=== PATIENT | male | born 1960 | race Caucasian/White ===

== ENCOUNTER 2017-10-17 20:56 | Inpatient (IN) | payer OTHER ==
[~2017-10-17] VITALS: Ht 175.3 cm; Wt 80.8 kg
--- NOTE | 2017-10-17 20:53 | Emergency Room Report ---
History of Present Illness General Source: Patient, EMS Present Illness HPI Patient is a 56-year-old male brought in by EMS after the persistent drainage from G-tube stoma. Patient had recently had G-tube removal. The patient is noted to be ventilator dependent. Patient had been having continued drainage from his the G-tube site. Allergies: Coded Allergies: SULFAMETHOXAZOLE (Verified Allergy, Unknown, 10/18/17) TRIMETHOPRIM (Verified Allergy, Unknown, 10/18/17) Patient History Past Medical History: see triage record Reviewed Nursing Documentation: PMH: Agreed; PSxH: Agreed Review of Systems All Other Systems: negative except mentioned in HPI Physical Exam Sp02 EP Interpretation: reviewed, normal General Appearance: normal inspection, well appearing, no apparent distress, alert, Chronically Ill Head: atraumatic ENT: normal ENT inspection, hearing grossly normal, normal voice Neck: normal inspection, supple, no bony tend, limited range of motion, tracheotomy Respiratory: normal inspection, lungs clear, normal breath sounds, no respiratory distress, no retraction, no wheezing Cardiovascular #1: regular rate, rhythm, no edema Gastrointestinal: normal inspection, normal bowel sounds, non tender, soft, no guarding, no hernia Genitourinary: no CVA tenderness Musculoskeletal: normal inspection, back normal, normal range of motion Neurologic: normal inspection, alert, oriented x3, responsive, overseamer III-XII nml as tested, speech normal Psychiatric: normal inspection, judgement/insight normal, mood/affect normal Skin: normal inspection, normal color, no rash Medical Decision Making Diagnostic Impression: Primary Impression: Gastrostomy site leak Additional Impressions: Quadriplegia Tracheostomy dependence ER Course The patient presented for persistently leaking G-tube. The differential diagnosis included was not limited to cellulitis, abscess, bowel obstruction among others.Because of complexity of patient's case laboratory testing and imaging studies were ordered.The laboratory testing was unremarkable. The patient was discussed with Dr. herrera for Dr. Mireille Groves. Dr. Gomez was contacted for surgical consult. Labs Test 10/17/17 21:30 White Blood Count 5.7 K/UL (4.8-10.8) Red Blood Count 5.76 M/UL (4.70-6.10) Hemoglobin 18.7 G/DL (14.2-18.0) Hematocrit 56.5 % (42.0-52.0) Mean Corpuscular Volume 98 FL (80-99) Mean Corpuscular Hemoglobin 32.4 PG (27.0-31.0) Mean Corpuscular Hemoglobin Concent 33.0 G/DL (32.0-36.0) Red Cell Distribution Width 12.9 % (11.6-14.8) Platelet Count 111 K/UL (150-450) Mean Platelet Volume 7.2 FL (6.5-10.1) Neutrophils (%) (Auto) 54.9 % (45.0-75.0) Lymphocytes (%) (Auto) 31.3 % (20.0-45.0) Monocytes (%) (Auto) 9.3 % (1.0-10.0) Eosinophils (%) (Auto) 3.3 % (0.0-3.0) Basophils (%) (Auto) 1.3 % (0.0-2.0) Prothrombin Time 11.5 SEC (9.30-11.50) Prothromb Time International Ratio 1.1 (0.9-1.1) Activated Partial Thromboplast Time 29 SEC (23-33) Sodium Level 144 MMOL/L (136-145) Potassium Level 3.8 MMOL/L (3.5-5.1) Chloride Level 104 MMOL/L (98-107) Carbon Dioxide Level 31 MMOL/L (21-32) Anion Gap 9 mmol/L (5-15) Blood Urea Nitrogen 27 mg/dL (7-18) Creatinine 0.7 MG/DL (0.55-1.30) Estimat Glomerular Filtration Rate > 60 mL/min (>60) Glucose Level 84 MG/DL (74-106) Calcium Level 9.7 MG/DL (8.5-10.1) Total Bilirubin 1.6 MG/DL (0.2-1.0) Direct Bilirubin 0.6 MG/DL (0.0-0.3) Aspartate Amino Transf (AST/SGOT) 59 U/L (15-37) Alanine Aminotransferase (ALT/SGPT) 67 U/L (12-78) Alkaline Phosphatase 662 U/L (46-116) Troponin I 0.000 ng/mL (0.000-0.056) Total Protein 9.1 G/DL (6.4-8.2) Albumin 3.8 G/DL (3.4-5.0) Globulin 5.3 g/dL Albumin/Globulin Ratio 0.7 (1.0-2.7) Lipase 119 U/L (73-393) Status: improved Disposition: HOME, SELF-CARE Condition: Stable Jd Montanez MD Oct 17, 2017 20:53
[2017-10-17 20:56] VITALS: BP 114/70
[2017-10-17] MEDS ORDERED: COLACE100 MG ORAL (21:09)
[2017-10-17] MEDS ORDERED: GABAPENTIN300 MG/61 ORAL (21:09)
[2017-10-17] MEDS ORDERED: LIPITOR80 MG ORAL (21:09)
[2017-10-17] MEDS ORDERED: LEVETIRACE500 MG/100 ORAL (21:09)
[2017-10-17] MEDS ORDERED: FAMOTIDINE20 MG ORAL (21:09)
[2017-10-17] MEDS ORDERED: ASPIRIN300 MG PO (21:09)
[2017-10-17] MEDS ORDERED: NORCO 5-325 TA1 EACH ORAL (21:15)
[2017-10-17] MEDS ORDERED: PRO-STAT LIQUID30 ML ORAL (21:15)
[2017-10-17] MEDS ORDERED: METOPROLOL TART50 MG ORAL (21:15)
[2017-10-17] MEDS ORDERED: VITAMIN C500 M1 ORAL (21:15)
[2017-10-17] MEDS ORDERED: SYNTHROID200 MC1 PO (21:15)
[2017-10-17] MEDS ORDERED: ACETAMINOPHEN120 MG PO (21:15)
[2017-10-17] MEDS ORDERED: MAGNESIUM400 M2 PO (21:15)
[2017-10-17 22:06] LABS: BASOPHILS % (AUTO) 1.3 % (0.0-2.0); EOSINOPHILS % (AUTO) 3.3 % (0.0-3.0); HEMATOCRIT 56.5 % (42.0-52.0); LYMPHOCYTES % (AUTO) 31.3 % (20.0-45.0); MEAN CORPUSCULAR VOLUME 98 FL (80-99); MONOCYTES % (AUTO) 9.3 % (1.0-10.0); NEUTROPHILS % (AUTO) 54.9 % (45.0-75.0); PLATELET COUNT 111 K/UL (150-450); RED BLOOD COUNT 5.76 M/UL (4.70-6.10); RED CELL DISTRIBUTION WIDTH 12.9 % (11.6-14.8); WHITE BLOOD COUNT 5.7 K/UL (4.8-10.8)
[2017-10-17 22:07] LABS: ANION GAP 9 mmol/L (5-15); BLOOD UREA NITROGEN 27 mg/dL (7-18); CALCIUM 9.7 MG/DL (8.5-10.1); CARBON DIOXIDE 31 MMOL/L (21-32); CHLORIDE 104 MMOL/L (98-107); CREATININE 0.7 MG/DL (0.55-1.30); POTASSIUM 3.8 MMOL/L (3.5-5.1); SODIUM 144 MMOL/L (136-145)
[2017-10-17 22:08] LABS: HEMOGLOBIN 18.7 G/DL (14.2-18.0)
[2017-10-17 22:14] LABS: INR 1.1 (0.9-1.1)
[2017-10-17 22:17] LABS: ALANINE AMINOTRANSFERASE 67 U/L (12-78); ALBUMIN 3.8 G/DL (3.4-5.0); ALBUMIN/GLOBULIN RATIO 0.7 (1.0-2.7); ALKALINE PHOSPHATASE 662 U/L (46-116); ASPARTATE AMINO TRANSFERASE 59 U/L (15-37); BILIRUBIN,TOTAL 1.6 MG/DL (0.2-1.0)
[2017-10-17 22:20] LABS: BILIRUBIN,DIRECT 0.6 MG/DL (0.0-0.3)
--- NOTE | 2017-10-17 22:21 | Diagnostic Imaging Report ---
EXAM: XR Chest, 1 View CLINICAL HISTORY: PREOP TECHNIQUE: Frontal view of the chest. COMPARISON: No relevant prior studies available. FINDINGS: Lungs: Probable mild atelectasis at the left lung base. Pleural space: No plain film evidence for pneumothorax. Heart: Mild prominence of the cardiomediastinal silhouette which may be related to the portable technique and patient rotation. Mediastinum: See above. Bones/joints: Unremarkable. Tubes, lines and devices: A tracheostomy tube is noted. Upper abdomen: Mild elevation of the left hemidiaphragm. IMPRESSION: Probable mild atelectasis at the left lung base.
[2017-10-17 22:45] VITALS: BP 114/72
[2017-10-17] MEDS ORDERED: Zolpidem 5mg tab ORAL PRN (23:30)
[2017-10-17 23:36] VITALS: BP 120/82
[2017-10-18] MEDS ORDERED: BACLOFEN10 MG ORAL (00:19)
[2017-10-18] MEDS ORDERED: MILK OF MA400 MG/51 ORAL (00:19)
[2017-10-18] MEDS ORDERED: ALBUTEROL2.5 MG/3 M INH (00:19)
[2017-10-18] MEDS ORDERED: VITAMIN C500 M1 ORAL (00:19)
[2017-10-18] MEDS ORDERED: MULTIVITAM9 MG/15 M2 PO (00:19)
[2017-10-18] MEDS ORDERED: VITAMIN D1000 UNI1 ORAL (00:19)
[2017-10-18] MEDS ORDERED: ARTIFICIAL TEAR15 ML BOTH EYES (00:19)
[2017-10-18] MEDS: D5 1/2NS 1,000 ML IV SCH ×2 (02:23→20:07)
[2017-10-18 04:00] VITALS: BP 113/60
[2017-10-18] MEDS ORDERED: Norco 5mg/325mg tab ORAL PRN (05:15)
[2017-10-18 08:00] VITALS: BP 101/63
[2017-10-18] MEDS: Heparin 5000 units/ml inj SUBQ SCH ×2 (08:53→20:10)
--- NOTE | 2017-10-18 11:19 | Consultation ---
History of Present Illness General Date patient seen: Oct 18, 2017 Time patient seen: 10:00 Chief Complaint: Malfunctioning Gastric Tube Referring physician: dr Groves Reason for Consultation: Chronic respiratory failure, tracheostomy Present Illness HPI 56 years old male with past medical history of respiratory failure, tracheostomy , dysphagia, G-tube, was sent from the alf facility for evaluation due to persistent leakage from the old G-tube site. G-tube was recently removed. Patient with persistent drainage from G tube site. Upon evaluation vital signs were stable Laboratory workup revealed no leukocytosis, stable hemoglobin and hematocrit Elevated T/D bili-1.6/0.6 respectively and AST 59 , stable electrolytes BUN 27 with normal creatinine troponin negative chest x-ray revealed no acute cardiopulmonary pathology patient admitted for further management Allergies: Coded Allergies: SULFAMETHOXAZOLE (Verified Allergy, Unknown, 10/18/17) TRIMETHOPRIM (Verified Allergy, Unknown, 10/18/17) Medication History Scheduled Acetaminophen* (Tylenol*), 650 MG PO Q4H, (Reported) Amino Acids/Protein Hydrolys (Pro-Stat Liquid), 30 ML ORAL TWICE A DAY, ( Reported) Ascorbic Acid* (Vitamin C*), 500 MG ORAL DAILY, (Reported) Ascorbic Acid* (Vitamin C*), 500 MG ORAL DAILY, (Reported) Atorvastatin (Lipitor), 10 MG ORAL BEDTIME, (Reported) Baclofen* (Baclofen*), 15 MG ORAL Q6HR, (Reported) Cholecalciferol (Vitamin D3)* (Vitamin D*), 5,000 UNIT ORAL DAILY, (Reported) Docusate Sodium* (Colace*), 100 MG ORAL TWICE A DAY, (Reported) Famotidine (Famotidine), 20 MG ORAL TWICE A DAY, (Reported) Gabapentin (Gabapentin), 800 MG ORAL Q6HR, (Reported) Levothyroxine Sodium (Levothyroxine Sodium), 125 MCG PO DAILY, (Reported) Magnesium Oxide (Magnesium), 800 MG PO DAILY, (Reported) Metoprolol Tartrate* (Metoprolol Tartrate*), 50 MG ORAL DAILY, (Reported) Multivit &Minerals/Ferrous Fum (Multivitamin Liquid), 5 ML PO DAILY, (Reported) Scheduled PRN Albuterol Sulfate* (Albuterol Sulfate Hhn*), 3 ML INH Q3HR PRN for Shortness of Breath, (Reported) Aspirin (Aspirin), 81 MG PO DAILY PRN for Mild Pain/Temp > 100.5, (Reported) Dextran 70/Hypromellose (Artificial Tears Eye Drops*), 1 DROP BOTH EYES Q6HR PRN for dry eyes, (Reported) Hydrocodone Bit/Acetaminophen 5-325* ([place] 5-325*), 1 TAB ORAL Q6H PRN for For Pain, (Reported) Magnesium Hydroxide* (Milk Of Magnesia*), 30 ML ORAL DAILY PRN for Constipation, (Reported) Patient History History Provided By: Medical Record Healthcare decision maker RALPH ALFARO, SISTER IN LAW Resuscitation status Advanced Directive on File Past Medical/Surgical History Past Medical/Surgical History: (1) Gastrostomy site leak (2) Tracheostomy dependence (3) Quadriplegia (4) Malfunction of gastrostomy tube Review of Systems ROS Narrative patient unable to provide info Physical Exam General Appearance: no apparent distress, alert - responds with eyes Lines, tubes and drains: peripheral HEENT: normocephalic, atraumatic, anicteric Neck: trach Respiratory/Chest: lungs clear, no respiratory distress, no accessory muscle use Cardiovascular/Chest: normal peripheral pulses, normal rate, no JVD Abdomen: normal bowel sounds, non tender, soft, other - site of old G tbe site with dressing, smal amount of drainage Skin Exam: warm/dry Neurologic: abnormal gait - bedridden , other - awake, responds with eyes and nodding , quadriplegia Musculoskeletal: atrophy - BLE Last 24 Hour Vital Signs Date Time Temp Pulse Resp B/P (MAP) Pulse Ox O2 Delivery O2 Flow Rate FiO2 10/18/17 08:00 98.0 64 20 101/63 (76) 96 98.0 10/18/17 07:08 98.4 10/18/17 06:57 Room Air 21 10/18/17 06:57 96 Room Air 10/18/17 06:09 98.4 10/18/17 04:00 98.4 72 18 113/60 (77) 97 98.4 10/18/17 01:43 Room Air 10/18/17 00:15 97 Room Air 21 10/18/17 00:15 Trach Collar 6.0 28 10/17/17 23:36 97.8 68 14 120/82 97 Room Air 10/17/17 23:36 98.3 68 14 120/82 97 Room Air 98.3 10/17/17 22:45 76 20 114/72 96 Room Air 10/17/17 20:56 97.9 78 114/70 97 Room Air 97.9 10/17/17 20:53 97.9 72 22 112/71 97 Room Air 97.9 Intake and Output 10/17/17 10/18/17 19:00 07:00 Intake Total 200 ml Balance 200 ml Intake IV Total 200 ml # Voids 2 # Bowel Movements 1 Laboratory Tests Test 10/17/17 21:30 10/18/17 10:00 White Blood Count 5.7 K/UL (4.8-10.8) Red Blood Count 5.76 M/UL (4.70-6.10) Hemoglobin 18.7 G/DL (14.2-18.0) *H Hematocrit 56.5 % (42.0-52.0) H Mean Corpuscular Volume 98 FL (80-99) Mean Corpuscular Hemoglobin 32.4 PG (27.0-31.0) H Mean Corpuscular Hemoglobin Concent 33.0 G/DL (32.0-36.0) Red Cell Distribution Width 12.9 % (11.6-14.8) Platelet Count 111 K/UL (150-450) L Mean Platelet Volume 7.2 FL (6.5-10.1) Neutrophils (%) (Auto) 54.9 % (45.0-75.0) Lymphocytes (%) (Auto) 31.3 % (20.0-45.0) Monocytes (%) (Auto) 9.3 % (1.0-10.0) Eosinophils (%) (Auto) 3.3 % (0.0-3.0) H Basophils (%) (Auto) 1.3 % (0.0-2.0) Prothrombin Time 11.5 SEC (9.30-11.50) Prothromb Time International Ratio 1.1 (0.9-1.1) Activated Partial Thromboplast Time 29 SEC (23-33) Sodium Level 144 MMOL/L (136-145) Potassium Level 3.8 MMOL/L (3.5-5.1) Chloride Level 104 MMOL/L (98-107) Carbon Dioxide Level 31 MMOL/L (21-32) Anion Gap 9 mmol/L (5-15) Blood Urea Nitrogen 27 mg/dL (7-18) H Creatinine 0.7 MG/DL (0.55-1.30) Estimat Glomerular Filtration Rate > 60 mL/min (>60) Glucose Level 84 MG/DL (74-106) Calcium Level 9.7 MG/DL (8.5-10.1) Total Bilirubin 1.6 MG/DL (0.2-1.0) H Direct Bilirubin 0.6 MG/DL (0.0-0.3) H Aspartate Amino Transf (AST/SGOT) 59 U/L (15-37) H Alanine Aminotransferase (ALT/SGPT) 67 U/L (12-78) Alkaline Phosphatase 662 U/L (46-116) H Troponin I 0.000 ng/mL (0.000-0.056) Total Protein 9.1 G/DL (6.4-8.2) H Albumin 3.8 G/DL (3.4-5.0) Globulin 5.3 g/dL Albumin/Globulin Ratio 0.7 (1.0-2.7) L Lipase 119 U/L (73-393) Jak2 V617F Mutation Detection Pending JAK2 V617F Mutation Background Pending JAK2 V617F Reviewed By Pending Hepatitis A IgM Antibody Pending Hepatitis B Surface Antigen Pending Hepatitis B Core IgM Antibody Pending Hepatitis C Antibody Pending HIV (1&2) Antibody Rapid Negative (NEGATIVE) Height (Feet): 5 Height (Inches): 9.00 Weight (Pounds): 176 Medications Current Medications Medications (Trade) Dose Ordered Sig/Vicenta Route PRN Reason Start Time Stop Time Status Last Admin Dose Admin Acetaminophen (Tylenol) 650 mg Q4H PRN ORAL fever 10/17/17 23:30 11/16/17 23:29 Acetaminophen/ Hydrocodone Bitart ([place] 5/325) 1 tab Q6H PRN ORAL For Pain 10/18/17 05:15 10/25/17 05:14 10/18/17 06:09 Artificial Tears (Akwa-Tears) 1 drop Q6H PRN BOTH EYES dry eyes 10/18/17 05:15 11/17/17 05:14 Dextrose/Sodium Chloride 1,000 ml @ 50 mls/hr Q20H IV 10/17/17 23:30 11/16/17 23:29 10/18/17 02:23 Heparin Sodium (Porcine) (Heparin 5000 units/ml) 5,000 units EVERY 12 HOURS SUBQ 10/18/17 09:00 11/17/17 08:59 10/18/17 08:53 Ondansetron HCl (Zofran) 4 mg Q6H PRN IVP Nausea & Vomiting 10/17/17 23:30 11/16/17 23:29 Zolpidem Tartrate (Ambien) 5 mg HSPRN PRN ORAL Insomnia 10/17/17 23:30 10/24/17 23:29 Assessment/Plan Assessment/Plan ASSESSMENT persistent drainage from old G-tube site chronic respiratory failure tracheostomy status dysphagia status post recent G-tube removal quadriplegia transaminitis dehydration PLAN CARE Med Surg floor NPO IV fluids GI and ID eval swallow eval wound care DVT prophylaxis o tracheostomy care O2 titrate to keep pulse ox above 92 % pulmonary toilet hepatitis panel pending , trend LFT and Bili HIV negative monitor renal parameters and electrolytes, correct electrolytes as needed and avoid nephrotoxic supportive care case discussed and evaluated by supervising physician Caitie Rose DOG BEAUTICIAN Oct 18, 2017 11:19
[2017-10-18 12:00] VITALS: BP 96/67
--- NOTE | 2017-10-18 12:15 | Consultation ---
History of Present Illness General Date patient seen: Oct 18, 2017 Chief Complaint: Malfunctioning Gastric Tube Referring physician: dr Groves Reason for Consultation: Chronic respiratory failure, tracheostomy Present Illness HPI 56 y/o M with hx of chronic resp failure s/p trach, dysphagia s/p GT, SNF resident presents to ED on 10/17 with persistent leakage from old GT site which was recently removed. Allergies: Coded Allergies: SULFAMETHOXAZOLE (Verified Allergy, Unknown, 10/18/17) TRIMETHOPRIM (Verified Allergy, Unknown, 10/18/17) Medication History Scheduled Acetaminophen* (Tylenol*), 650 MG PO Q4H, (Reported) Amino Acids/Protein Hydrolys (Pro-Stat Liquid), 30 ML ORAL TWICE A DAY, ( Reported) Ascorbic Acid* (Vitamin C*), 500 MG ORAL DAILY, (Reported) Ascorbic Acid* (Vitamin C*), 500 MG ORAL DAILY, (Reported) Atorvastatin (Lipitor), 10 MG ORAL BEDTIME, (Reported) Baclofen* (Baclofen*), 15 MG ORAL Q6HR, (Reported) Cholecalciferol (Vitamin D3)* (Vitamin D*), 5,000 UNIT ORAL DAILY, (Reported) Docusate Sodium* (Colace*), 100 MG ORAL TWICE A DAY, (Reported) Famotidine (Famotidine), 20 MG ORAL TWICE A DAY, (Reported) Gabapentin (Gabapentin), 800 MG ORAL Q6HR, (Reported) Levothyroxine Sodium (Levothyroxine Sodium), 125 MCG PO DAILY, (Reported) Magnesium Oxide (Magnesium), 800 MG PO DAILY, (Reported) Metoprolol Tartrate* (Metoprolol Tartrate*), 50 MG ORAL DAILY, (Reported) Multivit &Minerals/Ferrous Fum (Multivitamin Liquid), 5 ML PO DAILY, (Reported) Scheduled PRN Albuterol Sulfate* (Albuterol Sulfate Hhn*), 3 ML INH Q3HR PRN for Shortness of Breath, (Reported) Aspirin (Aspirin), 81 MG PO DAILY PRN for Mild Pain/Temp > 100.5, (Reported) Dextran 70/Hypromellose (Artificial Tears Eye Drops*), 1 DROP BOTH EYES Q6HR PRN for dry eyes, (Reported) Hydrocodone Bit/Acetaminophen 5-325* ([place] 5-325*), 1 TAB ORAL Q6H PRN for For Pain, (Reported) Magnesium Hydroxide* (Milk Of Magnesia*), 30 ML ORAL DAILY PRN for Constipation, (Reported) Patient History Healthcare decision maker RALPH ALFARO, SISTER IN LAW Resuscitation status Advanced Directive on File Patient History Narrative Pmhx: as above Shx: reviewed Fhx: non contributory Review of Systems All Other Systems: negative except mentioned in HPI Physical Exam Physical Exam Narrative General Appearance: no apparent distress, alert - responds with eyes Lines, tubes and drains: peripheral HEENT: normocephalic, atraumatic, anicteric Neck: trach Respiratory/Chest: lungs clear, no respiratory distress, no accessory muscle use Cardiovascular/Chest: normal peripheral pulses, normal rate, no JVD Abdomen: normal bowel sounds, non tender, soft, other - site of old G tbe site with dressing, smal amount of purulent drainage and surrounding erythema Skin Exam: warm/dry Neurologic: abnormal gait - bedridden , other - awake, responds with eyes and nodding , quadriplegia Musculoskeletal: atrophy - BLE Last 24 Hour Vital Signs Date Time Temp Pulse Resp B/P (MAP) Pulse Ox O2 Delivery O2 Flow Rate FiO2 10/18/17 08:00 98.0 64 20 101/63 (76) 96 98.0 10/18/17 07:08 98.4 10/18/17 06:57 Room Air 21 10/18/17 06:57 96 Room Air 21 10/18/17 06:09 98.4 10/18/17 04:00 98.4 72 18 113/60 (77) 97 98.4 10/18/17 01:43 Room Air 10/18/17 00:15 97 Room Air 21 10/18/17 00:15 Trach Collar 6.0 10/17/17 23:36 97.8 68 14 120/82 97 Room Air 10/17/17 23:36 98.3 68 14 120/82 97 Room Air 98.3 10/17/17 22:45 76 20 114/72 96 Room Air 10/17/17 20:56 97.9 78 114/70 97 Room Air 97.9 10/17/17 20:53 97.9 72 22 112/71 97 Room Air 97.9 Intake and Output 10/17/17 10/18/17 19:00 07:00 Intake Total 200 ml Balance 200 ml Intake IV Total 200 ml # Voids 2 # Bowel Movements 1 Laboratory Tests Test 10/17/17 21:30 10/18/17 10:00 White Blood Count 5.7 K/UL (4.8-10.8) Red Blood Count 5.76 M/UL (4.70-6.10) Hemoglobin 18.7 G/DL (14.2-18.0) *H Hematocrit 56.5 % (42.0-52.0) H Mean Corpuscular Volume 98 FL (80-99) Mean Corpuscular Hemoglobin 32.4 PG (27.0-31.0) H Mean Corpuscular Hemoglobin Concent 33.0 G/DL (32.0-36.0) Red Cell Distribution Width 12.9 % (11.6-14.8) Platelet Count 111 K/UL (150-450) L Mean Platelet Volume 7.2 FL (6.5-10.1) Neutrophils (%) (Auto) 54.9 % (45.0-75.0) Lymphocytes (%) (Auto) 31.3 % (20.0-45.0) Monocytes (%) (Auto) 9.3 % (1.0-10.0) Eosinophils (%) (Auto) 3.3 % (0.0-3.0) H Basophils (%) (Auto) 1.3 % (0.0-2.0) Prothrombin Time 11.5 SEC (9.30-11.50) Prothromb Time International Ratio 1.1 (0.9-1.1) Activated Partial Thromboplast Time 29 SEC (23-33) Sodium Level 144 MMOL/L (136-145) Potassium Level 3.8 MMOL/L (3.5-5.1) Chloride Level 104 MMOL/L (98-107) Carbon Dioxide Level 31 MMOL/L (21-32) Anion Gap 9 mmol/L (5-15) Blood Urea Nitrogen 27 mg/dL (7-18) H Creatinine 0.7 MG/DL (0.55-1.30) Estimat Glomerular Filtration Rate > 60 mL/min (>60) Glucose Level 84 MG/DL (74-106) Calcium Level 9.7 MG/DL (8.5-10.1) Total Bilirubin 1.6 MG/DL (0.2-1.0) H Direct Bilirubin 0.6 MG/DL (0.0-0.3) H Aspartate Amino Transf (AST/SGOT) 59 U/L (15-37) H Alanine Aminotransferase (ALT/SGPT) 67 U/L (12-78) Alkaline Phosphatase 662 U/L (46-116) H Troponin I 0.000 ng/mL (0.000-0.056) Total Protein 9.1 G/DL (6.4-8.2) H Albumin 3.8 G/DL (3.4-5.0) Globulin 5.3 g/dL Albumin/Globulin Ratio 0.7 (1.0-2.7) L Lipase 119 U/L (73-393) Jak2 V617F Mutation Detection Pending JAK2 V617F Mutation Background Pending JAK2 V617F Reviewed By Pending Hepatitis A IgM Antibody Pending Hepatitis B Surface Antigen Pending Hepatitis B Core IgM Antibody Pending Hepatitis C Antibody Pending HIV (1&2) Antibody Rapid Negative (NEGATIVE) Height (Feet): 5 Height (Inches): 9.00 Weight (Pounds): 176 Medications Current Medications Medications (Trade) Dose Ordered Sig/Vicenta Route PRN Reason Start Time Stop Time Status Last Admin Dose Admin Acetaminophen (Tylenol) 650 mg Q4H PRN ORAL fever 10/17/17 23:30 11/16/17 23:29 Acetaminophen/ Hydrocodone Bitart ([place] 5/325) 1 tab Q6H PRN ORAL For Pain 10/18/17 05:15 10/25/17 05:14 10/18/17 06:09 Artificial Tears (Akwa-Tears) 1 drop Q6H PRN BOTH EYES dry eyes 10/18/17 05:15 11/17/17 05:14 Dextrose/Sodium Chloride 1,000 ml @ 50 mls/hr Q20H IV 10/17/17 23:30 11/16/17 23:29 10/18/17 02:23 Heparin Sodium (Porcine) (Heparin 5000 units/ml) 5,000 units EVERY 12 HOURS SUBQ 10/18/17 09:00 11/17/17 08:59 10/18/17 08:53 Ondansetron HCl (Zofran) 4 mg Q6H PRN IVP Nausea & Vomiting 10/17/17 23:30 11/16/17 23:29 Zolpidem Tartrate (Ambien) 5 mg HSPRN PRN ORAL Insomnia 10/17/17 23:30 10/24/17 23:29 Assessment/Plan Assessment/Plan Abx: None Assessment: Old GT site/stoma cellulitis w/ purulent drainage Afebrile, no leukocytosis chronic resp failure s/p trach dysphagia s/p GT SNF resident Plan: -Start empiric IV Vanco and Zosyn for now pending cultures -wound cx -f/u cx -Monitor CBC/CMP, temperatures -aspiration precautions -wound care per hosp protocol -f/u abd US -Sx f/u Thank you for this consultation. Will continue to follow along with you. Discussed with OPAL. Kimi Ramos M.D. Oct 18, 2017 12:15
[2017-10-18] MEDS: Artificial Tears 1.4% Op Soln BOTH EYES PRN ×2 (13:44→20:08)
--- NOTE | 2017-10-18 14:54 | Consultation ---
History of Present Illness General Date patient seen: Oct 18, 2017 Chief Complaint: Malfunctioning Gastric Tube Referring physician: dr Groves Present Illness HPI 56 years old male with past medical history of respiratory failure, tracheostomy , dysphagia, G-tube, was sent from the [place] [facility] facility for evaluation due to persistent leakage from the old G-tube site. G-tube was recently removed and since patient with persistent drainage from G tube site. Lots of erythema and edema around site. Admitted for evaluation, care, and management. Surgery called to evaluate for possible abscess and need for debridement. patient seen, chart reviewed, patient examined. Allergies: Coded Allergies: SULFAMETHOXAZOLE (Verified Allergy, Unknown, 10/18/17) TRIMETHOPRIM (Verified Allergy, Unknown, 10/18/17) Medication History Scheduled Acetaminophen* (Tylenol*), 650 MG PO Q4H, (Reported) Amino Acids/Protein Hydrolys (Pro-Stat Liquid), 30 ML ORAL TWICE A DAY, ( Reported) Ascorbic Acid* (Vitamin C*), 500 MG ORAL DAILY, (Reported) Ascorbic Acid* (Vitamin C*), 500 MG ORAL DAILY, (Reported) Atorvastatin (Lipitor), 10 MG ORAL BEDTIME, (Reported) Baclofen* (Baclofen*), 15 MG ORAL Q6HR, (Reported) Cholecalciferol (Vitamin D3)* (Vitamin D*), 5,000 UNIT ORAL DAILY, (Reported) Docusate Sodium* (Colace*), 100 MG ORAL TWICE A DAY, (Reported) Famotidine (Famotidine), 20 MG ORAL TWICE A DAY, (Reported) Gabapentin (Gabapentin), 800 MG ORAL Q6HR, (Reported) Levothyroxine Sodium (Levothyroxine Sodium), 125 MCG PO DAILY, (Reported) Magnesium Oxide (Magnesium), 800 MG PO DAILY, (Reported) Metoprolol Tartrate* (Metoprolol Tartrate*), 50 MG ORAL DAILY, (Reported) Multivit &Minerals/Ferrous Fum (Multivitamin Liquid), 5 ML PO DAILY, (Reported) Scheduled PRN Albuterol Sulfate* (Albuterol Sulfate Hhn*), 3 ML INH Q3HR PRN for Shortness of Breath, (Reported) Aspirin (Aspirin), 81 MG PO DAILY PRN for Mild Pain/Temp > 100.5, (Reported) Dextran 70/Hypromellose (Artificial Tears Eye Drops*), 1 DROP BOTH EYES Q6HR PRN for dry eyes, (Reported) Hydrocodone Bit/Acetaminophen 5-325* ([place] 5-325*), 1 TAB ORAL Q6H PRN for For Pain, (Reported) Magnesium Hydroxide* (Milk Of Magnesia*), 30 ML ORAL DAILY PRN for Constipation, (Reported) Patient History Limited by: medical condition History Provided By: Medical Record, PMD Healthcare decision maker RALPH ALFARO, SISTER IN LAW Resuscitation status Advanced Directive on File Past Medical/Surgical History Past Medical/Surgical History: (1) Malfunction of gastrostomy tube (2) Quadriplegia (3) Tracheostomy dependence (4) Gastrostomy site leak Review of Systems All Other Systems: negative except mentioned in HPI Physical Exam General Appearance: no apparent distress HEENT: atraumatic Neck: trach Respiratory/Chest: normal breath sounds, no respiratory distress, no accessory muscle use Cardiovascular/Chest: normal rate, regularly irregular Abdomen: soft, distended, tender, other - large abdominal wound from prior with g tube site open and leaking. ulceration medial and inferior noted. erythema and edema noted. no abscess Extremities: trace edema Skin Exam: warm/dry Neurologic: responsive Last 24 Hour Vital Signs Date Time Temp Pulse Resp B/P (MAP) Pulse Ox O2 Delivery O2 Flow Rate FiO2 10/18/17 13:06 98 Room Air 10/18/17 13:06 Room Air 10/18/17 12:00 97.0 68 20 96/67 (77) 96 97.0 10/18/17 08:00 98.0 64 20 101/63 (76) 96 98.0 10/18/17 07:08 98.4 10/18/17 06:57 Room Air 10/18/17 06:57 96 Room Air 10/18/17 06:09 98.4 10/18/17 04:00 98.4 72 18 113/60 (77) 97 98.4 10/18/17 01:43 Room Air 10/18/17 00:15 97 Room Air 10/18/17 00:15 Trach Collar 6.0 10/17/17 23:36 97.8 68 14 120/82 97 Room Air 10/17/17 23:36 98.3 68 14 120/82 97 Room Air 98.3 10/17/17 22:45 76 20 114/72 96 Room Air 10/17/17 20:56 97.9 78 114/70 97 Room Air 97.9 10/17/17 20:53 97.9 72 22 112/71 97 Room Air 97.9 Intake and Output 10/17/17 10/18/17 19:00 07:00 Intake Total 200 ml Balance 200 ml Intake IV Total 200 ml # Voids 2 # Bowel Movements 1 Laboratory Tests Test 10/17/17 21:30 10/18/17 10:00 White Blood Count 5.7 K/UL (4.8-10.8) Red Blood Count 5.76 M/UL (4.70-6.10) Hemoglobin 18.7 G/DL (14.2-18.0) *H Hematocrit 56.5 % (42.0-52.0) H Mean Corpuscular Volume 98 FL (80-99) Mean Corpuscular Hemoglobin 32.4 PG (27.0-31.0) H Mean Corpuscular Hemoglobin Concent 33.0 G/DL (32.0-36.0) Red Cell Distribution Width 12.9 % (11.6-14.8) Platelet Count 111 K/UL (150-450) L Mean Platelet Volume 7.2 FL (6.5-10.1) Neutrophils (%) (Auto) 54.9 % (45.0-75.0) Lymphocytes (%) (Auto) 31.3 % (20.0-45.0) Monocytes (%) (Auto) 9.3 % (1.0-10.0) Eosinophils (%) (Auto) 3.3 % (0.0-3.0) H Basophils (%) (Auto) 1.3 % (0.0-2.0) Prothrombin Time 11.5 SEC (9.30-11.50) Prothromb Time International Ratio 1.1 (0.9-1.1) Activated Partial Thromboplast Time 29 SEC (23-33) Sodium Level 144 MMOL/L (136-145) Potassium Level 3.8 MMOL/L (3.5-5.1) Chloride Level 104 MMOL/L (98-107) Carbon Dioxide Level 31 MMOL/L (21-32) Anion Gap 9 mmol/L (5-15) Blood Urea Nitrogen 27 mg/dL (7-18) H Creatinine 0.7 MG/DL (0.55-1.30) Estimat Glomerular Filtration Rate > 60 mL/min (>60) Glucose Level 84 MG/DL (74-106) Calcium Level 9.7 MG/DL (8.5-10.1) Total Bilirubin 1.6 MG/DL (0.2-1.0) H Direct Bilirubin 0.6 MG/DL (0.0-0.3) H Aspartate Amino Transf (AST/SGOT) 59 U/L (15-37) H Alanine Aminotransferase (ALT/SGPT) 67 U/L (12-78) Alkaline Phosphatase 662 U/L (46-116) H Troponin I 0.000 ng/mL (0.000-0.056) Total Protein 9.1 G/DL (6.4-8.2) H Albumin 3.8 G/DL (3.4-5.0) Globulin 5.3 g/dL Albumin/Globulin Ratio 0.7 (1.0-2.7) L Lipase 119 U/L (73-393) Jak2 V617F Mutation Detection Pending JAK2 V617F Mutation Background Pending JAK2 V617F Reviewed By Pending Hepatitis A IgM Antibody Pending Hepatitis B Surface Antigen Pending Hepatitis B Core IgM Antibody Pending Hepatitis C Antibody Pending HIV (1&2) Antibody Rapid Negative (NEGATIVE) Height (Feet): 5 Height (Inches): 9.00 Weight (Pounds): 176 Medications Current Medications Medications (Trade) Dose Ordered Sig/Vicenta Route PRN Reason Start Time Stop Time Status Last Admin Dose Admin Acetaminophen (Tylenol) 650 mg Q4H PRN ORAL fever 10/17/17 23:30 11/16/17 23:29 Acetaminophen/ Hydrocodone Bitart ([place] 5/325) 1 tab Q6H PRN ORAL For Pain 10/18/17 05:15 10/25/17 05:14 10/18/17 06:09 Artificial Tears (Akwa-Tears) 1 drop Q6H PRN BOTH EYES dry eyes 10/18/17 05:15 11/17/17 05:14 10/18/17 13:44 Dextrose/Sodium Chloride 1,000 ml @ 50 mls/hr Q20H IV 10/17/17 23:30 11/16/17 23:29 10/18/17 02:23 Heparin Sodium (Porcine) (Heparin 5000 units/ml) 5,000 units EVERY 12 HOURS SUBQ 10/18/17 09:00 11/17/17 08:59 10/18/17 08:53 Ondansetron HCl (Zofran) 4 mg Q6H PRN IVP Nausea & Vomiting 10/17/17 23:30 11/16/17 23:29 Zolpidem Tartrate (Ambien) 5 mg HSPRN PRN ORAL Insomnia 10/17/17 23:30 10/24/17 23:29 Assessment/Plan Problem List: (1) Malfunction of gastrostomy tube Assessment & Plan: large abdominal wound from prior with g tube site open and leaking. ulceration medial and inferior noted. erythema and edema noted. no abscess cellulitis of prior g tube site large and persistent leakage of gastric contents causing ulceration elevated liver function tests no acute surgical intervention necessary skin protectant keep site clean dressings ultrasound will discuss with GI about closure thank you for this consultation. ICD Codes: K94.23 - Gastrostomy malfunction SNOMED: 343184090 (2) Gastrostomy site leak ICD Codes: K94.23 - Gastrostomy malfunction SNOMED: 380079729 Status: unchanged Robert Gomez Oct 18, 2017 14:54
--- NOTE | 2017-10-18 15:43 | History & Physical ---
History and Physical History & Physicial Job ID [id number] Reid Grajeda MD Oct 18, 2017 15:43
[2017-10-18 16:00] VITALS: BP 103/63
[2017-10-18] MEDS ORDERED: D5 1/2NS 1000ml IV ONE (17:55)
[2017-10-18] MEDS: Piperacillin/Tazobactam 3.375 GM in D5W 110 ML IVPB SCH (18:03)
[2017-10-18 20:00] VITALS: BP 142/78
[2017-10-18] MEDS ORDERED: Vancomycin 1250mg/D5W 250ml IVPB SCH (22:00)
[2017-10-18 23:50] VITALS: BP 180/103
[2017-10-19] VITALS (24 sets, daily range): BP systolic 101–176; BP diastolic 60–105
[2017-10-19] MEDS ORDERED: LORazepam Inj 2mg/ml 1ml ONE (00:41)
[2017-10-19 00:44] LABS: BASOPHILS % (AUTO) 1.4 % (0.0-2.0); HEMATOCRIT 55.8 % (42.0-52.0); LYMPHOCYTES % (AUTO) 22.4 % (20.0-45.0); MEAN CORPUSCULAR VOLUME 96 FL (80-99); MONOCYTES % (AUTO) 5.2 % (1.0-10.0); NEUTROPHILS % (AUTO) 70.1 % (45.0-75.0); PLATELET COUNT 119 K/UL (150-450); RED BLOOD COUNT 5.79 M/UL (4.70-6.10); RED CELL DISTRIBUTION WIDTH 12.8 % (11.6-14.8); WHITE BLOOD COUNT 7.2 K/UL (4.8-10.8)
[2017-10-19] MEDS ORDERED: levETIRAcetam 500mg/NS100ml 100 ML IVPB ONE ×2 (00:45→09:00)
[2017-10-19] MEDS ORDERED: LORazepam Inj 2mg/ml 1ml IV ONE (00:45)
--- NOTE | 2017-10-19 00:45 | History and Physical Report ---
DATE OF ADMISSION: 10/17/[address] Groves. REASON FOR ADMISSION: G-tube malfunction. HISTORY OF PRESENT ILLNESS: The patient is a pleasant 56-year-old male with history of respiratory failure, tracheostomy, history of G-tube, residential facility resident, at this time presents due to leakage from the G-tube. G-tube has been recently removed. Upon presentation, has had persistent G-tube leak. Internal Medicine consult order has consulted gastrointestinal service for further evaluation and treatment as well as pulmonary team. PAST MEDICAL HISTORY: As noted above. G-tube leak, tracheostomy, malfunctioning. PAST SURGICAL HISTORY: None noted besides tracheostomy and G-tube. ALLERGIES: Bactrim. REVIEW OF SYSTEMS: Difficult to obtain given mental status. FAMILY HISTORY: Noncontributory. SOCIAL HISTORY: No alcohol, tobacco, or illicit drug use. PHYSICAL EXAMINATION: VITAL SIGNS: Reviewed. GENERAL: No distress. PULMONARY: Decreased breath sounds. CARDIOVASCULAR: Regular rate. No S3 or S4. ABDOMEN: Soft. Positive for G-tube. EXTREMITIES: No cyanosis, swelling, or edema noted. LABORATORY DATA: WBC , hemoglobin , hematocrit 57, and platelet count 111,000. ASSESSMENT AND RECOMMENDATIONS: 1. Leukocytosis, secondary to underlying dehydration, to closely monitor for improvement. The patient is here . 2. Hyperproteinemia. Obtain serum protein electrophoresis. 3. G-tube malfunction, referred to gastrointestinal team. G-tube continues to . 4. Chronic respiratory failure, status post trach. 5. Erythema around the G-tube site with potential cellulitis, has been seen by ID Service. Cultures pending. Does not require antibiotics. 6. . Reid Grajeda M.D. DR: TIA JOB#: [id number] CC: IVANNA
[2017-10-19 00:49] LABS: HEMOGLOBIN 18.5 G/DL (14.2-18.0)
[2017-10-19] MEDS ORDERED: levETIRAcetam 500mg/NS100ml 100 ML IVPB SCH (01:45)
[2017-10-19] MEDS ORDERED: Midazolam 2mg/2ml Inj IVP SCH (02:00)
[2017-10-19] MEDS ORDERED: Midazolam 2mg/2ml Inj ONE (02:02)
[2017-10-19 03:56] LABS: ANION GAP 11 mmol/L (5-15); BLOOD UREA NITROGEN 28 mg/dL (7-18); CALCIUM 9.3 MG/DL (8.5-10.1); CARBON DIOXIDE 27 MMOL/L (21-32); CHLORIDE 104 MMOL/L (98-107); CREATININE 0.9 MG/DL (0.55-1.30); POTASSIUM 3.6 MMOL/L (3.5-5.1); SODIUM 142 MMOL/L (136-145)
[2017-10-19 04:07] LABS: ALANINE AMINOTRANSFERASE 55 U/L (12-78); ALBUMIN/GLOBULIN RATIO 0.8 (1.0-2.7); ALKALINE PHOSPHATASE 610 U/L (46-116); ASPARTATE AMINO TRANSFERASE 48 U/L (15-37); BILIRUBIN,TOTAL 2.7 MG/DL (0.2-1.0); PHOSPHORUS 4.1 MG/DL (2.5-4.9)
[2017-10-19] MEDS ORDERED: LORazepam Inj 2mg/ml 1ml IV PRN ×3 (04:45→14:30)
--- NOTE | 2017-10-19 05:17 | Emergency Room Report ---
Physical Exam Vital Signs Date Time Temp Pulse Resp B/P (MAP) Pulse Ox O2 Delivery O2 Flow Rate FiO2 10/17/17 20:53 97.9 72 22 112/71 97 Room Air 97.9 10/18/17 00:15 6.0 28 Medical Decision Making Diagnostic Impression: Primary Impression: Gastrostomy site leak Additional Impressions: Tracheostomy dependence Quadriplegia ER Course requested by ICU staff to see patient due to poorly functioning noncuffed trach tube on arrival informed patient had had multiple sz; pt. had significant amount of oral trauma and mouth bleeding trach tube intact but air escaping changed 16 Shiley without complication improved aeration i asked RNs to continue to call PMD as this is an admitted ICU patient Last Vital Signs Date Time Temp Pulse Resp B/P (MAP) Pulse Ox O2 Delivery O2 Flow Rate FiO2 10/19/17 05:03 97.7 102 15 113/72 (86) 98 97.7 10/19/17 04:00 Mechanical Ventilator 10/19/17 04:00 40 10/19/17 01:00 6.0 Disposition: ADMITTED INPATIENT Condition: Stable Referrals: Mireille Groves MD (PCP) Declan Marquez M.D. Oct 19, 2017 05:17
[2017-10-19] MEDS: Piperacillin/Tazobactam 3.375 GM in D5W 110 ML IVPB SCH ×3 (06:08→22:30)
[2017-10-19 07:24] LABS: HEMATOCRIT 53.5 % (42.0-52.0); HEMOGLOBIN 17.6 G/DL (14.2-18.0); MEAN CORPUSCULAR VOLUME 95 FL (80-99); PLATELET COUNT 126 K/UL (150-450); RED BLOOD COUNT 5.61 M/UL (4.70-6.10); RED CELL DISTRIBUTION WIDTH 12.4 % (11.6-14.8); WHITE BLOOD COUNT 10.8 K/UL (4.8-10.8)
[2017-10-19 07:52] LABS: ALANINE AMINOTRANSFERASE 47 U/L (12-78); ALBUMIN 3.4 G/DL (3.4-5.0); ALBUMIN/GLOBULIN RATIO 0.7 (1.0-2.7); ALKALINE PHOSPHATASE 537 U/L (46-116); ANION GAP 11 mmol/L (5-15); ASPARTATE AMINO TRANSFERASE 46 U/L (15-37); BLOOD UREA NITROGEN 26 mg/dL (7-18); CALCIUM 8.9 MG/DL (8.5-10.1); CARBON DIOXIDE 26 MMOL/L (21-32); CHLORIDE 105 MMOL/L (98-107); CREATININE 0.7 MG/DL (0.55-1.30); POTASSIUM 3.2 MMOL/L (3.5-5.1); SODIUM 142 MMOL/L (136-145)
[2017-10-19 07:53] LABS: BILIRUBIN,DIRECT 0.7 MG/DL (0.0-0.3)
[2017-10-19] MEDS: D5 1/2NS 1,000 ML IV SCH (08:17)
[2017-10-19] MEDS: Heparin 5000 units/ml inj SUBQ SCH ×2 (09:00→21:00)
[2017-10-19] MEDS: levETIRAcetam 500mg/NS100ml 100 ML IVPB SCH ×2 (10:01→21:05)
[2017-10-19] MEDS: Vancomycin 1250mg/D5W 250ml 250 ML IVPB SCH ×2 (10:02→22:25)
[2017-10-19] MEDS ORDERED: Norco 5mg/325mg tab ORAL PRN (11:15)
[2017-10-19] MEDS: Artificial Tears 1.4% Op Soln BOTH EYES PRN (12:01)
[2017-10-19] MEDS ORDERED: Potassium Chloride 20 MEQ in NS 275 ML IVPB ONE (12:15)
--- NOTE | 2017-10-19 13:08 | General Surgery Progress Note ---
General Surgery-Progress Note Subjective Additional Comments seizures overnight. transferred to ICU. site continues to drain. Objective Last 24 Hour Vital Signs Date Time Temp Pulse Resp B/P (MAP) Pulse Ox O2 Delivery O2 Flow Rate FiO2 10/19/17 12:37 113 18 28 10/19/17 12:00 100.1 108 15 128/86 (100) 97 100.1 10/19/17 12:00 28 10/19/17 12:00 119 10/19/17 12:00 Mechanical Ventilator 10/19/17 11:27 113 15 28 10/19/17 11:00 117 16 112/77 (89) 98 10/19/17 10:00 112 15 111/81 (91) 97 10/19/17 09:25 119 15 28 10/19/17 09:00 112 15 114/64 (81) 96 10/19/17 08:00 98.7 111 17 117/89 (98) 98 98.7 10/19/17 08:00 Mechanical Ventilator 10/19/17 08:00 40 10/19/17 08:00 111 10/19/17 07:01 106 15 40 10/19/17 07:00 107 15 117/89 (98) 98 10/19/17 06:00 105 15 114/73 (87) 99 10/19/17 05:27 103 15 40 10/19/17 05:03 97.7 102 15 113/72 (86) 98 97.7 10/19/17 04:00 102 15 104/71 (82) 97 10/19/17 04:00 Mechanical Ventilator 10/19/17 04:00 40 10/19/17 03:00 110 16 109/77 (88) 98 10/19/17 02:43 116 15 40 10/19/17 02:41 116 15 Mechanical Ventilator 40 10/19/17 02:15 40 10/19/17 02:00 120 16 110/73 (85) 95 10/19/17 01:30 130 10/19/17 01:15 99.7 130 15 120/66 (84) 95 99.7 10/19/17 01:15 98.7 140 18 120/66 (84) 96 98.7 10/19/17 01:15 98.7 98.7 10/19/17 01:00 Trach Collar 6.0 28 10/19/17 01:00 96 Trach Collar 6.0 28 10/19/17 00:20 97.3 140 16 176/105 (128) 96 97.3 10/18/17 23:50 98.7 136 16 180/103 (128) 98 98.7 10/18/17 21:00 Room Air 10/18/17 20:43 Room Air 10/18/17 20:42 96 Room Air 21 10/18/17 20:00 98.7 98 20 142/78 (99) 98 98.7 10/18/17 16:00 98.2 73 18 103/63 (76) 99 98.2 10/18/17 13:06 98 Room Air 21 10/18/17 13:06 Room Air I&O Intake and Output 10/18/17 10/19/17 19:00 07:00 Intake Total 550 ml 760.0 ml Output Total 30 ml Balance 550 ml 730.0 ml Intake Oral 0 ml IV Total 550 ml 760.0 ml Output Urine Total 30 ml # Bowel Movements 2 Dressing: saturated Wound: other Drains: none Cardiovascular: RSR Respiratory: clear Abdomen: soft, distended, tenderness, present bowel sounds Extremities: other Laboratory Tests Test 10/19/17 00:30 10/19/17 00:50 10/19/17 06:45 10/19/17 08:35 White Blood Count 7.2 K/UL (4.8-10.8) 10.8 K/UL (4.8-10.8) Red Blood Count 5.79 M/UL (4.70-6.10) 5.61 M/UL (4.70-6.10) Hemoglobin 18.5 G/DL (14.2-18.0) *H 17.6 G/DL (14.2-18.0) Hematocrit 55.8 % (42.0-52.0) H 53.5 % (42.0-52.0) H Mean Corpuscular Volume 96 FL (80-99) 95 FL (80-99) Mean Corpuscular Hemoglobin 31.9 PG (27.0-31.0) H 31.4 PG (27.0-31.0) H Mean Corpuscular Hemoglobin Concent 33.1 G/DL (32.0-36.0) 33.0 G/DL (32.0-36.0) Red Cell Distribution Width 12.8 % (11.6-14.8) 12.4 % (11.6-14.8) Platelet Count 119 K/UL (150-450) L 126 K/UL (150-450) L Mean Platelet Volume 7.1 FL (6.5-10.1) 7.5 FL (6.5-10.1) Neutrophils (%) (Auto) 70.1 % (45.0-75.0) % (45.0-75.0) Lymphocytes (%) (Auto) 22.4 % (20.0-45.0) % (20.0-45.0) Monocytes (%) (Auto) 5.2 % (1.0-10.0) % (1.0-10.0) Eosinophils (%) (Auto) 1.0 % (0.0-3.0) % (0.0-3.0) Basophils (%) (Auto) 1.4 % (0.0-2.0) % (0.0-2.0) Sodium Level 142 MMOL/L (136-145) 142 MMOL/L (136-145) Potassium Level 3.6 MMOL/L (3.5-5.1) 3.2 MMOL/L (3.5-5.1) L Chloride Level 104 MMOL/L (98-107) 105 MMOL/L (98-107) Carbon Dioxide Level 27 MMOL/L (21-32) 26 MMOL/L (21-32) Anion Gap 11 mmol/L (5-15) 11 mmol/L (5-15) Blood Urea Nitrogen 28 mg/dL (7-18) H 26 mg/dL (7-18) H Creatinine 0.9 MG/DL (0.55-1.30) 0.7 MG/DL (0.55-1.30) Estimat Glomerular Filtration Rate > 60 mL/min (>60) > 60 mL/min (>60) Glucose Level 130 MG/DL (74-106) H 144 MG/DL (74-106) H Calcium Level 9.3 MG/DL (8.5-10.1) 8.9 MG/DL (8.5-10.1) Phosphorus Level 4.1 MG/DL (2.5-4.9) Magnesium Level 1.9 MG/DL (1.8-2.4) Total Bilirubin 2.7 MG/DL (0.2-1.0) H 3.0 MG/DL (0.2-1.0) H Direct Bilirubin 1.0 MG/DL (0.0-0.3) H 0.7 MG/DL (0.0-0.3) H Aspartate Amino Transf (AST/SGOT) 48 U/L (15-37) H 46 U/L (15-37) H Alanine Aminotransferase (ALT/SGPT) 55 U/L (12-78) 47 U/L (12-78) Alkaline Phosphatase 610 U/L (46-116) H 537 U/L (46-116) H Total Protein 9.3 G/DL (6.4-8.2) H 8.2 G/DL (6.4-8.2) Albumin 4.0 G/DL (3.4-5.0) 3.4 G/DL (3.4-5.0) Globulin 5.3 g/dL 4.8 g/dL Albumin/Globulin Ratio 0.8 (1.0-2.7) L 0.7 (1.0-2.7) L Arterial Blood pH 7.134 (7.350-7.450) 7.476 (7.350-7.450) Arterial Blood Partial Pressure CO2 83.0 mmHg (35.0-45.0) *H 35.3 mmHg (35.0-45.0) Arterial Blood Partial Pressure O2 93.3 mmHg (75.0-100.0) 181.9 mmHg (75.0-100.0) H Arterial Blood HCO3 27.2 mmol/L (22.0-26.0) H 25.5 mmol/L (22.0-26.0) Arterial Blood Oxygen Saturation 94.5 % (92.0-98.0) 99.0 % (92.0-98.0) H Arterial Blood Base Excess -4.9 2.4 Kem Test Positive Positive Differential Total Cells Counted 100 Neutrophils % (Manual) 82 % (45-75) H Lymphocytes % (Manual) 9 % (20-45) L Monocytes % (Manual) 9 % (1-10) Eosinophils % (Manual) 0 % (0-3) Basophils % (Manual) 0 % (0-2) Band Neutrophils 0 % (0-8) Platelet Estimate Decreased L Platelet Morphology Normal Red Blood Cell Morphology Normal Erythrocyte Sedimentation Rate 19 MM/HR (0-20) C-Reactive Protein, Quantitative 3.0 mg/dL (0.00-0.90) H Total Protein (PEP) Pending Albumin (PEP) Pending Globulin (PEP) Pending [id number]-[id number] Pending Exfhs-[id number] Pending Beta Globulins Pending Beta Gamma Globulin Pending PEP Abnormal Protein Bands Pending Protein Electrophoresis Interpret Pending Plan Problems: (1) Malfunction of gastrostomy tube Assessment & Plan: large abdominal wound from prior with g tube site open and leaking. ulceration medial and inferior noted. erythema and edema noted. no abscess cellulitis of prior g tube site large and persistent leakage of gastric contents causing ulceration elevated liver function tests ESR nml, CRP mildly elevated. no acute surgical intervention necessary skin protectant keep site clean dressings ultrasound pending will discuss with GI about closure thank you for this consultation. (2) Gastrostomy site leak Robert Gomez Oct 19, 2017 13:08
[2017-10-19] MEDS ORDERED: NS 275ml ONE (16:04)
[2017-10-19] MEDS ORDERED: Tubing IV Blood Pump IV ONE (16:04)
[2017-10-19] MEDS ORDERED: NS 500ML ONE (16:04)
[2017-10-19] MEDS ORDERED: Tubing IV Secondary IV ONE (16:04)
[2017-10-19] MEDS ORDERED: Zolpidem 5mg tab ORAL PRN (18:00)
--- NOTE | 2017-10-19 18:16 | General Progress Note ---
Assessment/Plan Status: not improved, unchanged Assessment/Plan 1. Leukocytosis, secondary to underlying dehydration, to closely monitor for improvement. Also 2/2 recent intubation --> WBC normalized. 2. Hyperproteinemia. Obtain serum protein electrophoresis. 3. G-tube malfunction, referred to gastrointestinal team. 4. Chronic respiratory failure, status post intubation/trach. 5. Erythema around the G-tube site with potential cellulitis, has been seen by ID Service. --> Cultures pending. --> Pt on IV abx. 6. Seizure disorder - to see neuro friday for eval --> ativan prn and keprra --> appreciate neuro recs Subjective Date patient seen: Oct 19, 2017 ROS Limited/Unobtainable: Yes Allergies: Coded Allergies: SULFAMETHOXAZOLE (Verified Allergy, Unknown, 10/18/17) TRIMETHOPRIM (Verified Allergy, Unknown, 10/18/17) All Systems: reviewed and negative except above Subjective Pt remains in ICU. Pt remains obtunded. No acute events. Objective Last 24 Hour Vital Signs Date Time Temp Pulse Resp B/P (MAP) Pulse Ox O2 Delivery O2 Flow Rate FiO2 10/19/17 17:07 103 15 28 10/19/17 17:00 104 16 109/72 (84) 92 10/19/17 16:00 Mechanical Ventilator 10/19/17 16:00 115 18 147/71 (96) 94 10/19/17 16:00 106 10/19/17 16:00 111 16 107/65 (79) 97 10/19/17 16:00 28 10/19/17 16:00 28 10/19/17 15:04 103 15 28 10/19/17 15:00 99.2 106 16 124/70 (88) 98 99.2 10/19/17 14:00 105 16 106/60 (75) 97 10/19/17 13:00 104 16 120/72 (88) 98 10/19/17 12:37 113 18 28 10/19/17 12:00 100.1 108 15 128/86 (100) 97 100.1 10/19/17 12:00 28 10/19/17 12:00 119 10/19/17 12:00 Mechanical Ventilator 10/19/17 11:27 113 15 28 10/19/17 11:00 117 16 112/77 (89) 98 10/19/17 10:00 112 15 111/81 (91) 97 10/19/17 09:25 119 15 28 10/19/17 09:00 112 15 114/64 (81) 96 10/19/17 08:00 98.7 111 17 117/89 (98) 98 98.7 10/19/17 08:00 Mechanical Ventilator 10/19/17 08:00 40 10/19/17 08:00 111 10/19/17 07:01 106 15 40 10/19/17 07:00 107 15 117/89 (98) 98 10/19/17 06:00 105 15 114/73 (87) 99 10/19/17 05:27 103 15 40 10/19/17 05:03 97.7 102 15 113/72 (86) 98 97.7 10/19/17 04:00 102 15 104/71 (82) 97 10/19/17 04:00 Mechanical Ventilator 10/19/17 04:00 40 10/19/17 03:00 110 16 109/77 (88) 98 10/19/17 02:43 116 15 40 10/19/17 02:41 116 15 Mechanical Ventilator 40 10/19/17 02:15 40 10/19/17 02:00 120 16 110/73 (85) 95 10/19/17 01:30 130 10/19/17 01:15 99.7 130 15 120/66 (84) 95 99.7 10/19/17 01:15 98.7 140 18 120/66 (84) 96 98.7 10/19/17 01:15 98.7 98.7 10/19/17 01:00 Trach Collar 6.0 28 10/19/17 01:00 96 Trach Collar 6.0 28 10/19/17 00:20 97.3 140 16 176/105 (128) 96 97.3 10/18/17 23:50 98.7 136 16 180/103 (128) 98 98.7 10/18/17 21:00 Room Air 10/18/17 20:43 Room Air 10/18/17 20:42 96 Room Air 21 10/18/17 20:00 98.7 98 20 142/78 (99) 98 98.7 Intake and Output 10/18/17 10/19/17 19:00 07:00 Intake Total 550 ml 760.0 ml Output Total 30 ml Balance 550 ml 730.0 ml Intake Oral 0 ml IV Total 550 ml 760.0 ml Output Urine Total 30 ml # Bowel Movements 2 Laboratory Tests 10/19/17 00:30: White Blood Count 7.2, Red Blood Count 5.79, Hemoglobin 18.5*H, Hematocrit 55.8H , Mean Corpuscular Volume 96, Mean Corpuscular Hemoglobin 31.9H, Mean Corpuscular Hemoglobin Concent 33.1, Red Cell Distribution Width 12.8, Platelet Count 119L, Mean Platelet Volume 7.1, Neutrophils (%) (Auto) 70.1, Lymphocytes ( %) (Auto) 22.4, Monocytes (%) (Auto) 5.2, Eosinophils (%) (Auto) 1.0, Basophils (%) (Auto) 1.4, Sodium Level 142, Potassium Level 3.6, Chloride Level 104, Carbon Dioxide Level 27, Anion Gap 11, Blood Urea Nitrogen 28H, Creatinine 0.9, Estimat Glomerular Filtration Rate > 60, Glucose Level 130H, Calcium Level 9.3, Phosphorus Level 4.1, Magnesium Level 1.9, Total Bilirubin 2.7H, Direct Bilirubin 1.0H, Aspartate Amino Transf (AST/SGOT) 48H, Alanine Aminotransferase (ALT/SGPT) 55, Alkaline Phosphatase 610H, Total Protein 9.3H, Albumin 4.0, Globulin 5.3, Albumin/Globulin Ratio 0.8L 10/19/17 00:50: Arterial Blood pH 7.134*L, Arterial Blood Partial Pressure CO2 83.0*H, Arterial Blood Partial Pressure O2 93.3, Arterial Blood HCO3 27.2H, Arterial Blood Oxygen Saturation 94.5, Arterial Blood Base Excess -4.9, Kem Test Positive 10/19/17 06:45: White Blood Count 10.8, Red Blood Count 5.61, Hemoglobin 17.6, Hematocrit 53.5H , Mean Corpuscular Volume 95, Mean Corpuscular Hemoglobin 31.4H, Mean Corpuscular Hemoglobin Concent 33.0, Red Cell Distribution Width 12.4, Platelet Count 126L, Mean Platelet Volume 7.5, Neutrophils (%) (Auto) , Lymphocytes (%) ( Auto) , Monocytes (%) (Auto) , Eosinophils (%) (Auto) , Basophils (%) (Auto) , Sodium Level 142, Potassium Level 3.2L, Chloride Level 105, Carbon Dioxide Level 26, Anion Gap 11, Blood Urea Nitrogen 26H, Creatinine 0.7, Estimat Glomerular Filtration Rate > 60, Glucose Level 144H, Calcium Level 8.9, Total Bilirubin 3.0H, Direct Bilirubin 0.7H, Aspartate Amino Transf (AST/SGOT) 46H, Alanine Aminotransferase (ALT/SGPT) 47, Alkaline Phosphatase 537H, Total Protein 8.2, Albumin 3.4, Globulin 4.8, Albumin/Globulin Ratio 0.7L, Differential Total Cells Counted 100, Neutrophils % (Manual) 82H, Lymphocytes % (Manual) 9L, Monocytes % (Manual) 9, Eosinophils % (Manual) 0, Basophils % ( Manual) 0, Band Neutrophils 0, Platelet Estimate DecreasedL, Platelet Morphology Normal, Red Blood Cell Morphology Normal, Erythrocyte Sedimentation Rate 19, C-Reactive Protein, Quantitative 3.0H, Total Protein (PEP) [Pending], Albumin (PEP) [Pending], Globulin (PEP) [Pending], Sjiut-2-Lhfbzucuh [Pending], Rmzqc-1-Truaiwbbx [Pending], Beta Globulins [Pending], Beta Gamma Globulin [ Pending], PEP Abnormal Protein Bands [Pending], Protein Electrophoresis Interpret [Pending] 10/19/17 08:35: Arterial Blood pH 7.476H, Arterial Blood Partial Pressure CO2 35.3, Arterial Blood Partial Pressure O2 181.9H, Arterial Blood HCO3 25.5, Arterial Blood Oxygen Saturation 99.0H, Arterial Blood Base Excess 2.4, Kem Test Positive Height (Feet): 5 Height (Inches): 9.00 Weight (Pounds): 176 General Appearance: no apparent distress, lethargic EENT: PERRL/EOMI Neck: normal alignment Cardiovascular: tachycardia, irregularly irregular Respiratory/Chest: no respiratory distress Abdomen: soft Reid Grajeda MD Oct 19, 2017 18:16
[2017-10-20] VITALS (24 sets, daily range): BP systolic 96–146; BP diastolic 61–93
[2017-10-20] MEDS: D5 1/2NS 1,000 ML IV SCH (04:37)
[2017-10-20 04:57] LABS: BASOPHILS % (AUTO) 0.8 % (0.0-2.0); HEMOGLOBIN 16.7 G/DL (14.2-18.0); LYMPHOCYTES % (AUTO) 13.4 % (20.0-45.0); MEAN CORPUSCULAR VOLUME 94 FL (80-99); MONOCYTES % (AUTO) 8.9 % (1.0-10.0); NEUTROPHILS % (AUTO) 76.9 % (45.0-75.0); PLATELET COUNT 127 K/UL (150-450); RED BLOOD COUNT 5.32 M/UL (4.70-6.10); RED CELL DISTRIBUTION WIDTH 11.9 % (11.6-14.8); WHITE BLOOD COUNT 8.1 K/UL (4.8-10.8)
[2017-10-20 05:28] LABS: ALANINE AMINOTRANSFERASE 44 U/L (12-78); ALBUMIN 3.3 G/DL (3.4-5.0); ALBUMIN/GLOBULIN RATIO 0.8 (1.0-2.7); ALKALINE PHOSPHATASE 449 U/L (46-116); ANION GAP 8 mmol/L (5-15); ASPARTATE AMINO TRANSFERASE 43 U/L (15-37); BILIRUBIN,TOTAL 3.2 MG/DL (0.2-1.0); BLOOD UREA NITROGEN 18 mg/dL (7-18); CALCIUM 8.5 MG/DL (8.5-10.1); CARBON DIOXIDE 27 MMOL/L (21-32); CHLORIDE 103 MMOL/L (98-107); CREATININE 0.7 MG/DL (0.55-1.30); POTASSIUM 3.1 MMOL/L (3.5-5.1); SODIUM 138 MMOL/L (136-145)
[2017-10-20 05:47] LABS: BILIRUBIN,DIRECT 0.7 MG/DL (0.0-0.3)
[2017-10-20] MEDS: Piperacillin/Tazobactam 3.375 GM in D5W 110 ML IVPB SCH ×3 (05:52→22:16)
[2017-10-20] MEDS: levETIRAcetam 500mg/NS100ml 100 ML IVPB SCH ×2 (08:27→20:29)
[2017-10-20] MEDS: Artificial Tears 1.4% Op Soln BOTH EYES PRN ×2 (08:27→15:37)
[2017-10-20] MEDS: Heparin 5000 units/ml inj SUBQ SCH ×2 (08:27→20:29)
--- NOTE | 2017-10-20 08:45 | Diagnostic Imaging Report ---
Indication: Post nasogastric tube placement Technique: Supine view of the upper abdomen Comparison: none Findings: There is a nasogastric tube, tip which projects at the level gastric body, proximal port just beyond the gastroesophageal junction. Bowel gas pattern is unremarkable Impression: Satisfactory nasogastric intubation. This agrees with the preliminary interpretation provided overnight by [facility] teleradiology service.
[2017-10-20] MEDS: Vancomycin 1250mg/D5W 250ml 250 ML IVPB SCH ×2 (09:41→21:24)
--- NOTE | 2017-10-20 10:45 | Pulmonolgy Critical Care Note ---
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 - Objective Last 24 Hour Vital Signs Date Time Temp Pulse Resp B/P (MAP) Pulse Ox O2 Delivery O2 Flow Rate FiO2 10/20/17 10:24 99.5 10/20/17 10:00 99.5 100 17 110/66 (81) 98 99.5 10/20/17 09:01 84 20 28 10/20/17 09:00 104 15 117/74 (88) 98 10/20/17 08:29 100.9 10/20/17 08:00 Mechanical Ventilator 10/20/17 08:00 86 10/20/17 08:00 28 10/20/17 08:00 100.9 100 15 100/61 (74) 94 100.9 10/20/17 07:00 102 15 96/64 (75) 97 10/20/17 06:37 111 15 28 10/20/17 06:00 104 15 109/65 (80) 98 10/20/17 05:30 107 15 28 10/20/17 05:00 107 15 146/85 (105) 98 10/20/17 04:00 104 10/20/17 04:00 99.5 104 15 146/93 (110) 98 99.5 10/20/17 04:00 28 10/20/17 04:00 Mechanical Ventilator 10/20/17 03:30 104 16 28 10/20/17 03:00 107 15 132/81 (98) 98 10/20/17 02:00 106 15 124/78 (93) 98 10/20/17 01:30 106 15 28 10/20/17 01:00 118 17 108/69 (82) 95 10/20/17 00:00 Mechanical Ventilator 10/20/17 00:00 99.4 113 15 111/73 (86) 95 99.4 10/20/17 00:00 118 10/20/17 00:00 28 10/19/17 23:30 115 16 28 10/19/17 23:00 114 17 114/64 (81) 95 10/19/17 22:00 110 15 140/80 (100) 95 10/19/17 21:30 112 16 28 10/19/17 21:00 115 16 116/70 (85) 95 10/19/17 20:00 115 10/19/17 20:00 28 10/19/17 20:00 Mechanical Ventilator 10/19/17 20:00 101 16 101/60 (74) 98 10/19/17 19:30 117 15 28 10/19/17 19:00 101 15 140/91 (107) 95 10/19/17 18:00 107 15 114/66 (82) 95 10/19/17 17:07 103 15 28 10/19/17 17:00 104 16 109/72 (84) 92 10/19/17 16:00 Mechanical Ventilator 10/19/17 16:00 115 18 147/71 (96) 94 10/19/17 16:00 106 10/19/17 16:00 111 16 107/65 (79) 97 10/19/17 16:00 28 10/19/17 16:00 28 10/19/17 15:04 103 15 28 10/19/17 15:00 99.2 106 16 124/70 (88) 98 99.2 10/19/17 14:00 105 16 106/60 (75) 97 10/19/17 13:00 104 16 120/72 (88) 98 10/19/17 12:37 113 18 28 10/19/17 12:00 100.1 108 15 128/86 (100) 97 100.1 10/19/17 12:00 28 10/19/17 12:00 119 10/19/17 12:00 Mechanical Ventilator 10/19/17 11:27 113 15 28 10/19/17 11:00 117 16 112/77 (89) 98 Status: awake Condition: improving Neck: full ROM Lungs: rales, rhonchi Heart: HR/BP stable Abdomen: soft, non-tender Extremities: no C/C/E Micro: Microbiology Date/Time Source Procedure Growth Status 10/17/17 23:00 Nasal Nares MRSA Culture - Final NO METHICILLIN RESISTANT STAPH AUREUS... Complete 10/18/17 06:30 Thigh Left Gram Stain - Final Resulted 10/18/17 06:30 Thigh Left Wound Culture Pending Resulted 10/17/17 23:00 Rectum VRE Culture - Final Enterococcus Faecalis - Vre Complete 10/17/17 23:00 Rectum - Final NO CARBAPENEM-RESISTANT ENTEROBACTERI... Complete Critical Care - Subjective ROS Limited/Unobtainable: No Condition: critical EKG Rhythm: Sinus Rhythm FI02: 28 Vent Support Breath Rate: 15 Vent Support Mode: AC Vent Tidal Volume: 500 Sputum Amount: Small PEEP: 0.0 PIP: 23 I&O: Intake and Output 10/19/17 10/20/17 19:00 07:00 Intake Total 1493.334 ml 1310.000 ml Output Total 255 ml 160 ml Balance 1238.334 ml 1150.000 ml Intake Oral 0 ml 0 ml IV Total 1493.334 ml 1310.000 ml Output Urine Total 255 ml 160 ml # Bowel Movements 1 3 Labs: Laboratory Tests Test 10/19/17 21:00 10/20/17 04:20 10/20/17 06:30 Vancomycin Level Trough 11.9 ug/mL (5.0-12.0) White Blood Count 8.1 K/UL (4.8-10.8) Red Blood Count 5.32 M/UL (4.70-6.10) Hemoglobin 16.7 G/DL (14.2-18.0) Hematocrit 50.0 % (42.0-52.0) Mean Corpuscular Volume 94 FL (80-99) Mean Corpuscular Hemoglobin 31.3 PG (27.0-31.0) H Mean Corpuscular Hemoglobin Concent 33.3 G/DL (32.0-36.0) Red Cell Distribution Width 11.9 % (11.6-14.8) Platelet Count 127 K/UL (150-450) L Mean Platelet Volume 7.3 FL (6.5-10.1) Neutrophils (%) (Auto) 76.9 % (45.0-75.0) H Lymphocytes (%) (Auto) 13.4 % (20.0-45.0) L Monocytes (%) (Auto) 8.9 % (1.0-10.0) Eosinophils (%) (Auto) 0.0 % (0.0-3.0) Basophils (%) (Auto) 0.8 % (0.0-2.0) Sodium Level 138 MMOL/L (136-145) Potassium Level 3.1 MMOL/L (3.5-5.1) L Chloride Level 103 MMOL/L (98-107) Carbon Dioxide Level 27 MMOL/L (21-32) Anion Gap 8 mmol/L (5-15) Blood Urea Nitrogen 18 mg/dL (7-18) Creatinine 0.7 MG/DL (0.55-1.30) Estimat Glomerular Filtration Rate > 60 mL/min (>60) Glucose Level 111 MG/DL (74-106) H Calcium Level 8.5 MG/DL (8.5-10.1) Total Bilirubin 3.2 MG/DL (0.2-1.0) H Direct Bilirubin 0.7 MG/DL (0.0-0.3) H Aspartate Amino Transf (AST/SGOT) 43 U/L (15-37) H Alanine Aminotransferase (ALT/SGPT) 44 U/L (12-78) Alkaline Phosphatase 449 U/L (46-116) H Total Protein 7.7 G/DL (6.4-8.2) Albumin 3.3 G/DL (3.4-5.0) L Globulin 4.4 g/dL Albumin/Globulin Ratio 0.8 (1.0-2.7) L Urine Total Volume 24 Hours Pending Urine Creatinine 24 Hour Pending Urine Total Protein Timed Pending Urine Protein/Creatinine Ratio Pending Urine Albumin (%) Pending Urine Ijoyn-7-Losvpkseh (%) Pending Urine Ljyqt-2-Feojmblco (%) Pending Urine Beta-Globulin (%) Pending Urine Gamma Globulin (%) Pending Urine Protein Electrophoresis Intrp Pending Mellissa Garcia MD Oct 20, 2017 10:44
--- NOTE | 2017-10-20 11:57 | GI Initial Consult Note ---
History of Present Illness General Date patient seen: Oct 20, 2017 Time patient seen: 12:13 Reason for Hospitalization: Malfunctioning Gastric Tube Referring physician: dr Groves Reason for Consultation: GT SITE LEAKAGE Present Illness HPI The patient is a pleasant 56-year-old male with history of respiratory failure, tracheostomy, history of G-tube, alf facility resident, at this time presents due to leakage from the G-tube. G-tube has been recently removed. Upon presentation, has had persistent G-tube leak. Internal Medicine consult order has consulted gastrointestinal service for further evaluation and treatment as well as pulmonary team. GI consulted for leaking GT. Pt seen, awake A&O NAD with no active s/sx of N/V/ D. NGT clamped. GT removed by surgery. The site continues to have severe leakage with noted skin breakdown and erythema around the site. Labs show abnormal LFTs. Unknown history of colonoscopy. PAST MEDICAL HISTORY: As noted above. G-tube leak, tracheostomy. PAST SURGICAL HISTORY: None noted besides tracheostomy and G-tube. Home Meds Reported Medications Ascorbic Acid* (VITAMIN C*) 500 Mg Tablet, 500 MG ORAL DAILY, #30 TAB 0 Refills 10/18/17 Multivit &Minerals/Ferrous Fum (MULTIVITAMIN LIQUID) 9 Mg/15 Ml Liquid, 5 ML PO DAILY, ML 10/18/17 Magnesium Hydroxide* (MILK OF MAGNESIA*) 400 Mg/5 Ml Oral.susp, 30 ML ORAL DAILY PRN for Constipation, ML 10/18/17 Cholecalciferol (Vitamin D3)* (VITAMIN D*) 1,000 Unit Tablet, 5000 UNIT ORAL DAILY, #30 TAB 10/18/17 Baclofen* (BACLOFEN*) 10 Mg Tablet, 15 MG ORAL Q6HR, TAB 10/18/17 Dextran 70/Hypromellose (ARTIFICIAL TEARS EYE DROPS*) 15 Ml Drops, 1 DROP BOTH EYES Q6HR PRN for dry eyes, #15 ML 0 Refills 10/18/17 Albuterol Sulfate* (ALBUTEROL SULFATE HHN*) 2.5 Mg/3 Ml Vial.neb, 3 ML INH Q3HR PRN for Shortness of Breath, EA 10/18/17 Ascorbic Acid* (VITAMIN C*) 500 Mg Tablet, 500 MG ORAL DAILY, #30 TAB 0 Refills 10/17/17 Acetaminophen* (TYLENOL*) 120 Mg Supp.rect, 650 MG PO Q4H, SUPP 10/17/17 Amino Acids/Protein Hydrolys (PRO-STAT LIQUID) 30 Ml Liquid.pkt, 30 ML ORAL TWICE A DAY, ML 10/17/17 Hydrocodone Bit/Acetaminophen 5-325* ([place] 5-325*) 1 Each Tablet, 1 TAB ORAL Q6H PRN for For Pain, #10 TAB 0 Refills 10/17/17 Metoprolol Tartrate* (METOPROLOL TARTRATE*) 50 Mg Tablet, 50 MG ORAL DAILY, TAB 0 Refills 10/17/17 Magnesium Oxide (Magnesium) 400 Mg Tablet, 800 MG PO DAILY, TAB 10/17/17 Levothyroxine Sodium (Levothyroxine Sodium) 200 Mcg Vial, 125 MCG PO DAILY, VIAL 10/17/17 Gabapentin (GABAPENTIN) 300 Mg/6 Ml Solution, 800 MG ORAL Q6HR, ML 10/17/17 Famotidine (FAMOTIDINE) 20 Mg Tablet, 20 MG ORAL TWICE A DAY, #60 TAB 0 Refills 10/17/17 Docusate Sodium* (COLACE*) 100 Mg Capsule, 100 MG ORAL TWICE A DAY, CAP 10/17/17 Atorvastatin (Lipitor) 80 Mg Tablet, 10 MG ORAL BEDTIME, #30 TAB 0 Refills 10/17/17 Aspirin (Aspirin) 300 Mg Supp.rect, 81 MG PO DAILY PRN for Mild Pain/Temp > 100.5, SUPP 0 Refills 10/17/17 Med list reviewed/reconciled: Yes Allergies: Coded Allergies: SULFAMETHOXAZOLE (Verified Allergy, Unknown, 10/18/17) TRIMETHOPRIM (Verified Allergy, Unknown, 10/18/17) Patient History History Provided By: Medical Record Review of Systems All Other Systems: limited Physical Exam Vital Signs Date Time Temp Pulse Resp B/P (MAP) Pulse Ox O2 Delivery O2 Flow Rate FiO2 10/17/17 20:53 97.9 72 22 112/71 97 Room Air 97.9 10/18/17 00:15 6.0 28 Labs Laboratory Tests Test 10/19/17 21:00 10/20/17 04:20 10/20/17 06:30 Vancomycin Level Trough 11.9 ug/mL (5.0-12.0) White Blood Count 8.1 K/UL (4.8-10.8) Red Blood Count 5.32 M/UL (4.70-6.10) Hemoglobin 16.7 G/DL (14.2-18.0) Hematocrit 50.0 % (42.0-52.0) Mean Corpuscular Volume 94 FL (80-99) Mean Corpuscular Hemoglobin 31.3 PG (27.0-31.0) H Mean Corpuscular Hemoglobin Concent 33.3 G/DL (32.0-36.0) Red Cell Distribution Width 11.9 % (11.6-14.8) Platelet Count 127 K/UL (150-450) L Mean Platelet Volume 7.3 FL (6.5-10.1) Neutrophils (%) (Auto) 76.9 % (45.0-75.0) H Lymphocytes (%) (Auto) 13.4 % (20.0-45.0) L Monocytes (%) (Auto) 8.9 % (1.0-10.0) Eosinophils (%) (Auto) 0.0 % (0.0-3.0) Basophils (%) (Auto) 0.8 % (0.0-2.0) Sodium Level 138 MMOL/L (136-145) Potassium Level 3.1 MMOL/L (3.5-5.1) L Chloride Level 103 MMOL/L (98-107) Carbon Dioxide Level 27 MMOL/L (21-32) Anion Gap 8 mmol/L (5-15) Blood Urea Nitrogen 18 mg/dL (7-18) Creatinine 0.7 MG/DL (0.55-1.30) Estimat Glomerular Filtration Rate > 60 mL/min (>60) Glucose Level 111 MG/DL (74-106) H Calcium Level 8.5 MG/DL (8.5-10.1) Total Bilirubin 3.2 MG/DL (0.2-1.0) H Direct Bilirubin 0.7 MG/DL (0.0-0.3) H Aspartate Amino Transf (AST/SGOT) 43 U/L (15-37) H Alanine Aminotransferase (ALT/SGPT) 44 U/L (12-78) Alkaline Phosphatase 449 U/L (46-116) H Total Protein 7.7 G/DL (6.4-8.2) Albumin 3.3 G/DL (3.4-5.0) L Globulin 4.4 g/dL Albumin/Globulin Ratio 0.8 (1.0-2.7) L Urine Total Volume 24 Hours Pending Urine Creatinine 24 Hour Pending Urine Total Protein Timed Pending Urine Protein/Creatinine Ratio Pending Urine Albumin (%) Pending Urine Qtasy-9-Cllqndrwb (%) Pending Urine Ligcf-7-Lrwzeapex (%) Pending Urine Beta-Globulin (%) Pending Urine Gamma Globulin (%) Pending Urine Protein Electrophoresis Intrp Pending General Appearance: no apparent distress Head: normocephalic EENT: normal ENT inspection Neck: supple Respiratory: no respiratory distress Cardiovascular: normal rate Gastrointestinal: other - see HPI Rectal: deferred Genitourinary: no CVA tenderness Neurologic: alert Skin: normal inspection, normal color, no rash Lymphatic: normal inspection Current Medications Current Medications Medications (Trade) Dose Ordered Sig/Vicenta Route PRN Reason Start Time Stop Time Status Last Admin Dose Admin Acetaminophen (Tylenol) 650 mg Q4H PRN NG Fever 10/20/17 12:29 11/19/17 12:28 Acetaminophen/ Hydrocodone Bitart ([place] 5/325) 1 tab Q6H PRN ORAL For Pain 10/19/17 11:15 10/25/17 05:14 Artificial Tears (Akwa-Tears) 1 drop Q6H PRN BOTH EYES dry eyes 10/19/17 11:15 11/17/17 05:14 10/20/17 08:27 Dextrose/Sodium Chloride 1,000 ml @ 50 mls/hr Q20H IV 10/19/17 08:00 11/16/17 07:59 10/20/17 04:37 Heparin Sodium (Porcine) (Heparin 5000 units/ml) 5,000 units EVERY 12 HOURS SUBQ 10/19/17 09:00 11/17/17 08:59 Levetiracetam 100 ml @ 400 mls/hr Q12HR IVPB 10/19/17 10:00 11/18/17 09:59 10/20/17 08:27 Lorazepam (Ativan 2mg/ml 1ml) 2 mg Q2H PRN IV For Seizures 10/19/17 14:30 10/26/17 14:29 Ondansetron HCl (Zofran) 4 mg Q6H PRN IVP Nausea & Vomiting 10/19/17 08:00 11/16/17 07:59 Pantoprazole (Protonix) 40 mg DAILY IVP 10/20/17 12:36 11/19/17 12:35 Piperacillin Sod/ Tazobactam Sod 3.375 gm/Dextrose 110 ml @ 27.5 mls/hr EVERY 8 HOURS IVPB 10/19/17 14:00 10/23/17 17:59 10/20/17 05:52 Potassium Chloride (K-Dur) 40 meq ONCE NGT 10/20/17 12:00 10/20/17 13:00 Vancomycin HCl (Vanco rx to dose) 1 ea DAILY PRN MISC Per rx protocol 10/19/17 09:00 11/17/17 15:59 Vancomycin HCl/ Dextrose 250 ml @ 166.667 mls/hr Q12HR@1000,2200 IVPB 10/19/17 10:00 10/23/17 21:59 10/20/17 09:41 Zolpidem Tartrate (Ambien) 5 mg HSPRN PRN ORAL Insomnia 10/19/17 18:00 10/24/17 17:59 GI: Plan Problems: (1) Gastrostomy site leak (2) Malfunction of gastrostomy tube (3) Quadriplegia Plan GT leakage s/p removal GT site cellulitis hepatitis panel negative no anemia possible endoscopy this Friday for Peg placement and/or stoma closure. GT site care TID, would care per surgical NGT electrolyte correction zofran prn abx per ID trend LFTs fu labs Discussed with Dr. Lehman. Thank you for this patient referral, we will follow. The patient was seen and examined at bedside and all new and available data was reviewed in the patients chart. I agree with the above findings, impression and plan. (Patient seen earlier today. Signature stamp does not reflect patient encounter time.). - MD Day Solorio,[facility] COMPLAINT INVESTIGATOR Oct 20, 2017 11:57
[2017-10-20] MEDS: Pantoprazole Inj IVP SCH (11:58)
--- NOTE | 2017-10-20 14:45 | General Progress Note ---
Assessment/Plan Status: not improved, unchanged Assessment/Plan 1. Leukocytosis, secondary to underlying dehydration, to closely monitor for improvement. Also 2/2 recent intubation --> WBC normalized. 2. Hyperproteinemia. Obtain serum protein electrophoresis. 3. G-tube malfunction, referred to gastrointestinal team. 4. Chronic respiratory failure, status post intubation/trach. 5. Erythema around the G-tube site with potential cellulitis, has been seen by ID Service. --> Cultures: Gram + cocci --> Pt on IV abx. 6. Seizure disorder - to see neuro friday for eval --> ativan prn and keprra --> appreciate neuro recs Subjective Date patient seen: Oct 20, 2017 ROS Limited/Unobtainable: Yes Allergies: Coded Allergies: SULFAMETHOXAZOLE (Verified Allergy, Unknown, 10/18/17) TRIMETHOPRIM (Verified Allergy, Unknown, 10/18/17) All Systems: reviewed and negative except above Subjective Pt remains in ICU. Pt remains obtunded. No acute events. Pt febrile overnight, currently afebrile. Objective Last 24 Hour Vital Signs Date Time Temp Pulse Resp B/P (MAP) Pulse Ox O2 Delivery O2 Flow Rate FiO2 10/20/17 14:00 81 15 110/74 (86) 100 10/20/17 13:00 90 15 103/64 (77) 98 10/20/17 12:26 96 17 28 10/20/17 12:00 99.3 92 15 102/66 (78) 98 99.3 10/20/17 12:00 95 10/20/17 12:00 28 10/20/17 12:00 Mechanical Ventilator 10/20/17 11:00 91 15 98/62 (74) 99 10/20/17 10:51 97 15 28 10/20/17 10:24 99.5 10/20/17 10:00 99.5 100 17 110/66 (81) 98 99.5 10/20/17 09:01 84 20 28 10/20/17 09:00 104 15 117/74 (88) 98 10/20/17 08:29 100.9 10/20/17 08:00 Mechanical Ventilator 10/20/17 08:00 86 10/20/17 08:00 28 10/20/17 08:00 100.9 100 15 100/61 (74) 94 100.9 10/20/17 07:00 102 15 96/64 (75) 97 10/20/17 06:37 111 15 28 10/20/17 06:00 104 15 109/65 (80) 98 10/20/17 05:30 107 15 28 10/20/17 05:00 107 15 146/85 (105) 98 10/20/17 04:00 104 10/20/17 04:00 99.5 104 15 146/93 (110) 98 99.5 10/20/17 04:00 28 10/20/17 04:00 Mechanical Ventilator 10/20/17 03:30 104 16 28 10/20/17 03:00 107 15 132/81 (98) 98 10/20/17 02:00 106 15 124/78 (93) 98 10/20/17 01:30 106 15 28 10/20/17 01:00 118 17 108/69 (82) 95 10/20/17 00:00 Mechanical Ventilator 10/20/17 00:00 99.4 113 15 111/73 (86) 95 99.4 10/20/17 00:00 118 10/20/17 00:00 28 10/19/17 23:30 115 16 28 10/19/17 23:00 114 17 114/64 (81) 95 10/19/17 22:00 110 15 140/80 (100) 95 10/19/17 21:30 112 16 28 10/19/17 21:00 115 16 116/70 (85) 95 10/19/17 20:00 115 10/19/17 20:00 28 10/19/17 20:00 Mechanical Ventilator 10/19/17 20:00 101 16 101/60 (74) 98 18 19:30 117 15 28 10/19/17 19:00 101 15 140/91 (107) 95 10/19/17 18:00 107 15 114/66 (82) 95 10/19/17 17:07 103 15 28 10/19/17 17:00 104 16 109/72 (84) 92 10/19/17 16:00 Mechanical Ventilator 10/19/17 16:00 115 18 147/71 (96) 94 10/19/17 16:00 106 10/19/17 16:00 111 16 107/65 (79) 97 7/29/18 16:00 28 10/19/17 16:00 28 10/19/17 15:04 103 15 28 10/19/17 15:00 99.2 106 16 124/70 (88) 98 99.2 Intake and Output 10/19/17 10/20/17 19:00 07:00 Intake Total 1493.334 ml 1310.000 ml Output Total 255 ml 160 ml Balance 1238.334 ml 1150.000 ml Intake Oral 0 ml 0 ml IV Total 1493.334 ml 1310.000 ml Output Urine Total 255 ml 160 ml # Bowel Movements 1 3 Laboratory Tests 10/19/17 21:00: Vancomycin Level Trough 11.9 10/20/17 04:20: White Blood Count 8.1, Red Blood Count 5.32, Hemoglobin 16.7, Hematocrit 50.0, Mean Corpuscular Volume 94, Mean Corpuscular Hemoglobin 31.3H, Mean Corpuscular Hemoglobin Concent 33.3, Red Cell Distribution Width 11.9, Platelet Count 127L, Mean Platelet Volume 7.3, Neutrophils (%) (Auto) 76.9H, Lymphocytes (%) (Auto) 13.4L, Monocytes (%) (Auto) 8.9, Eosinophils (%) (Auto) 0.0, Basophils (%) (Auto ) 0.8, Sodium Level 138, Potassium Level 3.1L, Chloride Level 103, Carbon Dioxide Level 27, Anion Gap 8, Blood Urea Nitrogen 18, Creatinine 0.7, Estimat Glomerular Filtration Rate > 60, Glucose Level 111H, Calcium Level 8.5, Total Bilirubin 3.2H, Direct Bilirubin 0.7H, Aspartate Amino Transf (AST/SGOT) 43H, Alanine Aminotransferase (ALT/SGPT) 44, Alkaline Phosphatase 449H, Total Protein 7.7, Albumin 3.3L, Globulin 4.4, Albumin/Globulin Ratio 0.8L 10/20/17 06:30: Urine Total Volume 24 Hours [Pending], Urine Creatinine 24 Hour [Pending], Urine Total Protein Timed [Pending], Urine Protein/Creatinine Ratio [Pending], Urine Albumin (%) [Pending], Urine Xvhns-0-Wnwyolurg (%) [Pending], Urine Alpha- 2-Globulins (%) [Pending], Urine Beta-Globulin (%) [Pending], Urine Gamma Globulin (%) [Pending], Urine Protein Electrophoresis Intrp [Pending] Height (Feet): 5 Height (Inches): 9.00 Weight (Pounds): 0 General Appearance: no apparent distress, lethargic EENT: PERRL/EOMI Neck: normal alignment Cardiovascular: normal peripheral pulses Respiratory/Chest: no respiratory distress Abdomen: soft Reid Grajeda MD Oct 20, 2017 14:45
--- NOTE | 2017-10-20 15:18 | Infectious Diseases Prog Note ---
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 Will continue to follow along with you. Subjective Allergies: Coded Allergies: SULFAMETHOXAZOLE (Verified Allergy, Unknown, 10/18/17) TRIMETHOPRIM (Verified Allergy, Unknown, 10/18/17) Subjective Patient awake and alert. Nonverbal but interactive Objective Vital Signs Last 24 Hour Vital Signs Date Time Temp Pulse Resp B/P (MAP) Pulse Ox O2 Delivery O2 Flow Rate FiO2 10/20/17 14:00 81 15 110/74 (86) 100 10/20/17 13:00 90 15 103/64 (77) 98 10/20/17 12:26 96 17 28 10/20/17 12:00 99.3 92 15 102/66 (78) 98 99.3 10/20/17 12:00 95 10/20/17 12:00 28 10/20/17 12:00 Mechanical Ventilator 10/20/17 11:00 91 15 98/62 (74) 99 10/20/17 10:51 97 15 28 10/20/17 10:24 99.5 10/20/17 10:00 99.5 100 17 110/66 (81) 98 99.5 10/20/17 09:01 84 20 28 10/20/17 09:00 104 15 117/74 (88) 98 10/20/17 08:29 100.9 10/20/17 08:00 Mechanical Ventilator 10/20/17 08:00 86 10/20/17 08:00 28 10/20/17 08:00 100.9 100 15 100/61 (74) 94 100.9 10/20/17 07:00 102 15 96/64 (75) 97 10/20/17 06:37 111 15 28 10/20/17 06:00 104 15 109/65 (80) 98 10/20/17 05:30 107 15 28 10/20/17 05:00 107 15 146/85 (105) 98 10/20/17 04:00 104 10/20/17 04:00 99.5 104 15 146/93 (110) 98 99.5 10/20/17 04:00 28 10/20/17 04:00 Mechanical Ventilator 10/20/17 03:30 104 16 28 10/20/17 03:00 107 15 132/81 (98) 98 10/20/17 02:00 106 15 124/78 (93) 98 10/20/17 01:30 106 15 28 10/20/17 01:00 118 17 108/69 (82) 95 10/20/17 00:00 Mechanical Ventilator 10/20/17 00:00 99.4 113 15 111/73 (86) 95 99.4 10/20/17 00:00 118 10/20/17 00:00 28 10/19/17 23:30 115 16 28 10/19/17 23:00 114 17 114/64 (81) 95 10/19/17 22:00 110 15 140/80 (100) 95 10/19/17 21:30 112 16 28 10/19/17 21:00 115 16 116/70 (85) 95 10/19/17 20:00 115 10/19/17 20:00 28 10/19/17 20:00 Mechanical Ventilator 10/19/17 20:00 101 16 101/60 (74) 98 10/19/17 19:30 117 15 28 10/19/17 19:00 101 15 140/91 (107) 95 10/19/17 18:00 107 15 114/66 (82) 95 10/19/17 17:07 103 15 28 10/19/17 17:00 104 16 109/72 (84) 92 10/19/17 16:00 Mechanical Ventilator 10/19/17 16:00 115 18 147/71 (96) 94 10/19/17 16:00 106 10/19/17 16:00 111 16 107/65 (79) 97 10/19/17 16:00 28 10/19/17 16:00 28 Height (Feet): 5 Height (Inches): 9.00 Weight (Pounds): 0 Objective General Appearance: no apparent distress, alert - responds with eyes and tries to mouth words. Says thank you. HEENT: normocephalic, atraumatic, anicteric Neck: trach Respiratory/Chest: lungs clear, no respiratory distress, no accessory muscle use Cardiovascular/Chest: normal peripheral pulses, normal rate, no JVD Abdomen: normal bowel sounds, non tender, soft, other - site of old G tbe site with dressing, small amount of purulent drainage and surrounding erythema Skin Exam: warm/dry Neurologic: abnormal gait - bedridden , other - awake, responds with eyes and nodding , quadriplegia Musculoskeletal: atrophy - BLE Microbiology Date/Time Source Procedure Growth Status 10/18/17 15:35 Drainage Fluid Gram Stain - Final Resulted 10/18/17 15:35 Wound Culture - Preliminary Gram Negative Bacillus 1 Staphylococcus Aureus Resulted 10/17/17 23:00 Nasal Nares MRSA Culture - Final NO METHICILLIN RESISTANT STAPH AUREUS... Complete 10/18/17 06:30 Thigh Left Gram Stain - Final Resulted 10/18/17 06:30 Wound Culture - Preliminary Gram Negative Bacillus 1 Gram Negative Bacillus 2 Resulted 10/17/17 23:00 Rectum VRE Culture - Final Enterococcus Faecalis - Vre Complete 10/17/17 23:00 Rectum - Final NO CARBAPENEM-RESISTANT ENTEROBACTERI... Complete Laboratory Tests Test 10/19/17 21:00 10/20/17 04:20 10/20/17 06:30 Vancomycin Level Trough 11.9 ug/mL (5.0-12.0) White Blood Count 8.1 K/UL (4.8-10.8) Red Blood Count 5.32 M/UL (4.70-6.10) Hemoglobin 16.7 G/DL (14.2-18.0) Hematocrit 50.0 % (42.0-52.0) Mean Corpuscular Volume 94 FL (80-99) Mean Corpuscular Hemoglobin 31.3 PG (27.0-31.0) H Mean Corpuscular Hemoglobin Concent 33.3 G/DL (32.0-36.0) Red Cell Distribution Width 11.9 % (11.6-14.8) Platelet Count 127 K/UL (150-450) L Mean Platelet Volume 7.3 FL (6.5-10.1) Neutrophils (%) (Auto) 76.9 % (45.0-75.0) H Lymphocytes (%) (Auto) 13.4 % (20.0-45.0) L Monocytes (%) (Auto) 8.9 % (1.0-10.0) Eosinophils (%) (Auto) 0.0 % (0.0-3.0) Basophils (%) (Auto) 0.8 % (0.0-2.0) Sodium Level 138 MMOL/L (136-145) Potassium Level 3.1 MMOL/L (3.5-5.1) L Chloride Level 103 MMOL/L (98-107) Carbon Dioxide Level 27 MMOL/L (21-32) Anion Gap 8 mmol/L (5-15) Blood Urea Nitrogen 18 mg/dL (7-18) Creatinine 0.7 MG/DL (0.55-1.30) Estimat Glomerular Filtration Rate > 60 mL/min (>60) Glucose Level 111 MG/DL (74-106) H Calcium Level 8.5 MG/DL (8.5-10.1) Total Bilirubin 3.2 MG/DL (0.2-1.0) H Direct Bilirubin 0.7 MG/DL (0.0-0.3) H Aspartate Amino Transf (AST/SGOT) 43 U/L (15-37) H Alanine Aminotransferase (ALT/SGPT) 44 U/L (12-78) Alkaline Phosphatase 449 U/L (46-116) H Total Protein 7.7 G/DL (6.4-8.2) Albumin 3.3 G/DL (3.4-5.0) L Globulin 4.4 g/dL Albumin/Globulin Ratio 0.8 (1.0-2.7) L Urine Total Volume 24 Hours Pending Urine Creatinine 24 Hour Pending Urine Total Protein Timed Pending Urine Protein/Creatinine Ratio Pending Urine Albumin (%) Pending Urine Qffdf-4-Kpstriknr (%) Pending Urine Mtclq-4-Dgctgllpq (%) Pending Urine Beta-Globulin (%) Pending Urine Gamma Globulin (%) Pending Urine Protein Electrophoresis Intrp Pending Current Medications Medications (Trade) Dose Ordered Sig/Vicenta Route PRN Reason Start Time Stop Time Status Last Admin Dose Admin Acetaminophen (Tylenol) 650 mg Q4H PRN NG Fever 10/20/17 12:29 11/19/17 12:28 Acetaminophen/ Hydrocodone Bitart ([place] 5/325) 1 tab Q6H PRN ORAL For Pain 10/19/17 11:15 10/25/17 05:14 Artificial Tears (Akwa-Tears) 1 drop Q6H PRN BOTH EYES dry eyes 10/19/17 11:15 11/17/17 05:14 10/20/17 08:27 Dextrose/Sodium Chloride 1,000 ml @ 50 mls/hr Q20H IV 10/19/17 08:00 11/16/17 07:59 10/20/17 04:37 Heparin Sodium (Porcine) (Heparin 5000 units/ml) 5,000 units EVERY 12 HOURS SUBQ 10/19/17 09:00 11/17/17 08:59 Levetiracetam 100 ml @ 400 mls/hr Q12HR IVPB 10/19/17 10:00 11/18/17 09:59 10/20/17 08:27 Lorazepam (Ativan 2mg/ml 1ml) 2 mg Q2H PRN IV For Seizures 10/19/17 14:30 10/26/17 14:29 Ondansetron HCl (Zofran) 4 mg Q6H PRN IVP Nausea & Vomiting 10/19/17 08:00 11/16/17 07:59 Pantoprazole (Protonix) 40 mg DAILY IVP 10/20/17 12:36 11/19/17 12:35 10/20/17 11:58 Piperacillin Sod/ Tazobactam Sod 3.375 gm/Dextrose 110 ml @ 27.5 mls/hr EVERY 8 HOURS IVPB 10/19/17 14:00 10/23/17 17:59 10/20/17 14:31 Vancomycin HCl (Vanco rx to dose) 1 ea DAILY PRN MISC Per rx protocol 10/19/17 09:00 11/17/17 15:59 Vancomycin HCl/ Dextrose 250 ml @ 166.667 mls/hr Q12HR@1000,2200 IVPB 10/19/17 10:00 10/23/17 21:59 10/20/17 09:41 Zolpidem Tartrate (Ambien) 5 mg HSPRN PRN ORAL Insomnia 10/19/17 18:00 10/24/17 17:59 Nikita Mobley M.D. Oct 20, 2017 15:18
[2017-10-20] MEDS: Acetaminophen 650mg/20.3ml NG PRN (15:45)
[2017-10-20] MEDS ORDERED: NS 275ml ONE (16:59)
[2017-10-20] MEDS ORDERED: Sterile Water Irrig 1000ml IRRIG ONE (16:59)
--- NOTE | 2017-10-20 17:14 | General Surgery Progress Note ---
General Surgery-Progress Note Subjective Additional Comments plan for tube placement by GI Objective Last 24 Hour Vital Signs Date Time Temp Pulse Resp B/P (MAP) Pulse Ox O2 Delivery O2 Flow Rate FiO2 10/20/17 17:00 80 15 116/71 (86) 98 10/20/17 16:50 91 17 28 10/20/17 16:42 99.2 10/20/17 16:00 87 10/20/17 16:00 28 10/20/17 16:00 99.2 88 15 109/73 (85) 98 99.2 10/20/17 16:00 Mechanical Ventilator 10/20/17 15:45 100.0 10/20/17 15:17 88 15 28 10/20/17 15:00 85 15 106/69 (81) 98 10/20/17 14:00 81 15 110/74 (86) 100 10/20/17 13:00 90 15 103/64 (77) 98 10/20/17 12:26 96 17 28 10/20/17 12:00 99.3 92 15 102/66 (78) 98 99.3 10/20/17 12:00 95 10/20/17 12:00 28 10/20/17 12:00 Mechanical Ventilator 10/20/17 11:00 91 15 98/62 (74) 99 10/20/17 10:51 97 15 28 10/20/17 10:24 99.5 10/20/17 10:00 99.5 100 17 110/66 (81) 98 99.5 10/20/17 09:01 84 20 28 10/20/17 09:00 104 15 117/74 (88) 98 10/20/17 08:29 100.9 10/20/17 08:00 Mechanical Ventilator 10/20/17 08:00 86 10/20/17 08:00 28 10/20/17 08:00 100.9 100 15 100/61 (74) 94 100.9 10/20/17 07:00 102 15 96/64 (75) 97 10/20/17 06:37 111 15 28 10/20/17 06:00 104 15 109/65 (80) 98 10/20/17 05:30 107 15 28 10/20/17 05:00 107 15 146/85 (105) 98 10/20/17 04:00 104 10/20/17 04:00 99.5 104 15 146/93 (110) 98 99.5 10/20/17 04:00 28 10/20/17 04:00 Mechanical Ventilator 10/20/17 03:30 104 16 28 10/20/17 03:00 107 15 132/81 (98) 98 10/20/17 02:00 106 15 124/78 (93) 98 10/20/17 01:30 106 15 28 10/20/17 01:00 118 17 108/69 (82) 95 10/20/17 00:00 Mechanical Ventilator 10/20/17 00:00 99.4 113 15 111/73 (86) 95 99.4 10/20/17 00:00 118 10/20/17 00:00 28 10/19/17 23:30 115 16 28 10/19/17 23:00 114 17 114/64 (81) 95 10/19/17 22:00 110 15 140/80 (100) 95 10/19/17 21:30 112 16 28 10/19/17 21:00 115 16 116/70 (85) 95 10/19/17 20:00 115 10/19/17 20:00 28 10/19/17 20:00 Mechanical Ventilator 10/19/17 20:00 101 16 101/60 (74) 98 10/19/17 19:30 117 15 28 10/19/17 19:00 101 15 140/91 (107) 95 10/19/17 18:00 107 15 114/66 (82) 95 I&O Intake and Output 10/19/17 10/20/17 19:00 07:00 Intake Total 1493.334 ml 1310.000 ml Output Total 255 ml 160 ml Balance 1238.334 ml 1150.000 ml Intake Oral 0 ml 0 ml IV Total 1493.334 ml 1310.000 ml Output Urine Total 255 ml 160 ml # Bowel Movements 1 3 Dressing: saturated Wound: other Drains: other Cardiovascular: RSR Respiratory: decreased breath sounds Abdomen: soft, distended, present bowel sounds, other Extremities: edema, no tenderness Laboratory Tests Test 10/19/17 21:00 10/20/17 04:20 10/20/17 06:30 Vancomycin Level Trough 11.9 ug/mL (5.0-12.0) White Blood Count 8.1 K/UL (4.8-10.8) Red Blood Count 5.32 M/UL (4.70-6.10) Hemoglobin 16.7 G/DL (14.2-18.0) Hematocrit 50.0 % (42.0-52.0) Mean Corpuscular Volume 94 FL (80-99) Mean Corpuscular Hemoglobin 31.3 PG (27.0-31.0) H Mean Corpuscular Hemoglobin Concent 33.3 G/DL (32.0-36.0) Red Cell Distribution Width 11.9 % (11.6-14.8) Platelet Count 127 K/UL (150-450) L Mean Platelet Volume 7.3 FL (6.5-10.1) Neutrophils (%) (Auto) 76.9 % (45.0-75.0) H Lymphocytes (%) (Auto) 13.4 % (20.0-45.0) L Monocytes (%) (Auto) 8.9 % (1.0-10.0) Eosinophils (%) (Auto) 0.0 % (0.0-3.0) Basophils (%) (Auto) 0.8 % (0.0-2.0) Sodium Level 138 MMOL/L (136-145) Potassium Level 3.1 MMOL/L (3.5-5.1) L Chloride Level 103 MMOL/L (98-107) Carbon Dioxide Level 27 MMOL/L (21-32) Anion Gap 8 mmol/L (5-15) Blood Urea Nitrogen 18 mg/dL (7-18) Creatinine 0.7 MG/DL (0.55-1.30) Estimat Glomerular Filtration Rate > 60 mL/min (>60) Glucose Level 111 MG/DL (74-106) H Calcium Level 8.5 MG/DL (8.5-10.1) Total Bilirubin 3.2 MG/DL (0.2-1.0) H Direct Bilirubin 0.7 MG/DL (0.0-0.3) H Aspartate Amino Transf (AST/SGOT) 43 U/L (15-37) H Alanine Aminotransferase (ALT/SGPT) 44 U/L (12-78) Alkaline Phosphatase 449 U/L (46-116) H Total Protein 7.7 G/DL (6.4-8.2) Albumin 3.3 G/DL (3.4-5.0) L Globulin 4.4 g/dL Albumin/Globulin Ratio 0.8 (1.0-2.7) L Urine Total Volume 24 Hours Pending Urine Creatinine 24 Hour Pending Urine Total Protein Timed Pending Urine Protein/Creatinine Ratio Pending Urine Albumin (%) Pending Urine Qzsiw-1-Quriplvwh (%) Pending Urine Tzanq-4-Yldoodkaq (%) Pending Urine Beta-Globulin (%) Pending Urine Gamma Globulin (%) Pending Urine Protein Electrophoresis Intrp Pending Plan Problems: (1) Malfunction of gastrostomy tube Assessment & Plan: large abdominal wound from prior with g tube site open and leaking. ulceration medial and inferior noted. erythema and edema noted. no abscess cellulitis of prior g tube site large and persistent leakage of gastric contents causing ulceration elevated liver function tests ESR nml, CRP mildly elevated. no acute surgical intervention necessary skin protectant keep site clean dressings ultrasound pending will discuss with GI about closure - plan for new tube placement thank you for this consultation. (2) Gastrostomy site leak Robert Gomez Oct 20, 2017 17:14
[2017-10-21] VITALS (24 sets, daily range): BP systolic 99–149; BP diastolic 61–91
[2017-10-21] MEDS: D5 1/2NS 1,000 ML IV SCH ×2 (01:11→20:16)
[2017-10-21] MEDS: Piperacillin/Tazobactam 3.375 GM in D5W 110 ML IVPB SCH ×3 (05:05→22:11)
[2017-10-21 05:46] LABS: BASOPHILS % (AUTO) 1.1 % (0.0-2.0); EOSINOPHILS % (AUTO) 0.9 % (0.0-3.0); HEMOGLOBIN 15.7 G/DL (14.2-18.0); LYMPHOCYTES % (AUTO) 23.9 % (20.0-45.0); MEAN CORPUSCULAR VOLUME 93 FL (80-99); MONOCYTES % (AUTO) 7.7 % (1.0-10.0); NEUTROPHILS % (AUTO) 66.4 % (45.0-75.0); PLATELET COUNT 107 K/UL (150-450); RED BLOOD COUNT 5.05 M/UL (4.70-6.10); RED CELL DISTRIBUTION WIDTH 11.4 % (11.6-14.8)
[2017-10-21 06:00] LABS: ALANINE AMINOTRANSFERASE 43 U/L (12-78); ALBUMIN 3.2 G/DL (3.4-5.0); ALBUMIN/GLOBULIN RATIO 0.8 (1.0-2.7); ALKALINE PHOSPHATASE 391 U/L (46-116); ANION GAP 11 mmol/L (5-15); ASPARTATE AMINO TRANSFERASE 40 U/L (15-37); BILIRUBIN,TOTAL 2.9 MG/DL (0.2-1.0); BLOOD UREA NITROGEN 10 mg/dL (7-18); CALCIUM 8.3 MG/DL (8.5-10.1); CARBON DIOXIDE 25 MMOL/L (21-32); CHLORIDE 103 MMOL/L (98-107); CREATININE 0.7 MG/DL (0.55-1.30); SODIUM 138 MMOL/L (136-145)
[2017-10-21 06:03] LABS: POTASSIUM 2.7 MMOL/L (3.5-5.1)
--- NOTE | 2017-10-21 08:13 | Infectious Diseases Prog Note ---
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 Will continue to follow along with you. Subjective Allergies: Coded Allergies: SULFAMETHOXAZOLE (Verified Allergy, Unknown, 10/18/17) TRIMETHOPRIM (Verified Allergy, Unknown, 10/18/17) Subjective Patient awake and alert. Nonverbal but interactive Reports no problems pain controlled Objective Vital Signs Last 24 Hour Vital Signs Date Time Temp Pulse Resp B/P (MAP) Pulse Ox O2 Delivery O2 Flow Rate FiO2 10/21/17 07:29 89 22 28 10/21/17 07:00 98.7 95 19 103/67 (79) 96 98.7 10/21/17 06:00 108 21 131/82 (98) 94 10/21/17 05:10 85 19 28 10/21/17 05:00 96 18 107/65 (79) 100 10/21/17 04:00 94 10/21/17 04:00 Mechanical Ventilator 10/21/17 04:00 98.8 93 18 106/63 (77) 100 98.8 10/21/17 04:00 28 10/21/17 03:00 99 18 129/83 (98) 100 10/21/17 02:53 99 19 28 10/21/17 02:00 98.5 97 18 122/75 (91) 100 98.5 10/21/17 01:04 99 18 28 10/21/17 01:00 93 18 127/75 (92) 100 10/21/17 00:00 99.0 98 18 149/73 (98) 100 99.0 10/21/17 00:00 93 10/21/17 00:00 Mechanical Ventilator 10/20/17 23:10 89 21 28 10/20/17 23:00 98 18 126/71 (89) 98 10/20/17 22:00 96 18 112/65 (81) 98 10/20/17 21:15 91 18 28 10/20/17 21:00 90 17 112/79 (90) 98 10/20/17 20:00 89 16 129/77 (94) 98 10/20/17 20:00 86 10/20/17 20:00 28 10/20/17 20:00 Mechanical Ventilator 10/20/17 20:00 88 19 28 10/20/17 19:00 99.2 91 17 118/72 (87) 99 99.2 10/20/17 18:00 86 15 118/71 (87) 99 10/20/17 17:00 80 15 116/71 (86) 98 10/20/17 16:50 91 17 28 10/20/17 16:42 99.2 10/20/17 16:00 87 10/20/17 16:00 28 10/20/17 16:00 99.2 88 15 109/73 (85) 98 99.2 10/20/17 16:00 Mechanical Ventilator 10/20/17 15:45 100.0 10/20/17 15:17 88 15 28 10/20/17 15:00 85 15 106/69 (81) 98 10/20/17 14:00 81 15 110/74 (86) 100 10/20/17 13:00 90 15 103/64 (77) 98 10/20/17 12:26 96 17 28 10/20/17 12:00 99.3 92 15 102/66 (78) 98 99.3 10/20/17 12:00 95 10/20/17 12:00 28 10/20/17 12:00 Mechanical Ventilator 10/20/17 11:00 91 15 98/62 (74) 99 10/20/17 10:51 97 15 28 10/20/17 10:24 99.5 10/20/17 10:00 99.5 100 17 110/66 (81) 98 99.5 10/20/17 09:01 84 20 28 10/20/17 09:00 104 15 117/74 (88) 98 10/20/17 08:29 100.9 Height (Feet): 5 Height (Inches): 9.00 Weight (Pounds): 180 Objective General Appearance: no apparent distress, alert - responds with eyes and tries to mouth words. HEENT: normocephalic, atraumatic, anicteric, Trached Respiratory/Chest: lungs clear, no respiratory distress, no accessory muscle use Cardiovascular/Chest: normal peripheral pulses, normal rate, no JVD Abdomen: normal bowel sounds, non tender, soft, other - site of old G tbe site with dressing Skin Exam: warm/dry Neurologic: abnormal gait - bedridden , other - awake, responds with eyes and nodding , quadriplegia Musculoskeletal: atrophy - BLE Microbiology Date/Time Source Procedure Growth Status 10/18/17 15:35 Drainage Fluid Gram Stain - Final Resulted 10/18/17 15:35 Wound Culture - Preliminary Gram Negative Bacillus 1 Staphylococcus Aureus Resulted Laboratory Tests Test 10/21/17 05:18 White Blood Count 6.0 K/UL (4.8-10.8) Red Blood Count 5.05 M/UL (4.70-6.10) Hemoglobin 15.7 G/DL (14.2-18.0) Hematocrit 47.0 % (42.0-52.0) Mean Corpuscular Volume 93 FL (80-99) Mean Corpuscular Hemoglobin 31.0 PG (27.0-31.0) Mean Corpuscular Hemoglobin Concent 33.4 G/DL (32.0-36.0) Red Cell Distribution Width 11.4 % (11.6-14.8) L Platelet Count 107 K/UL (150-450) L Mean Platelet Volume 7.7 FL (6.5-10.1) Neutrophils (%) (Auto) 66.4 % (45.0-75.0) Lymphocytes (%) (Auto) 23.9 % (20.0-45.0) Monocytes (%) (Auto) 7.7 % (1.0-10.0) Eosinophils (%) (Auto) 0.9 % (0.0-3.0) Basophils (%) (Auto) 1.1 % (0.0-2.0) Sodium Level 138 MMOL/L (136-145) Potassium Level 2.7 MMOL/L (3.5-5.1) *L Chloride Level 103 MMOL/L (98-107) Carbon Dioxide Level 25 MMOL/L (21-32) Anion Gap 11 mmol/L (5-15) Blood Urea Nitrogen 10 mg/dL (7-18) Creatinine 0.7 MG/DL (0.55-1.30) Estimat Glomerular Filtration Rate > 60 mL/min (>60) Glucose Level 96 MG/DL (74-106) Calcium Level 8.3 MG/DL (8.5-10.1) L Total Bilirubin 2.9 MG/DL (0.2-1.0) H Direct Bilirubin 1.0 MG/DL (0.0-0.3) H Aspartate Amino Transf (AST/SGOT) 40 U/L (15-37) H Alanine Aminotransferase (ALT/SGPT) 43 U/L (12-78) Alkaline Phosphatase 391 U/L (46-116) H Pro-B-Type Natriuretic Peptide 452 pg/mL (0-125) H Total Protein 7.4 G/DL (6.4-8.2) Albumin 3.2 G/DL (3.4-5.0) L Globulin 4.2 g/dL Albumin/Globulin Ratio 0.8 (1.0-2.7) L Current Medications Medications (Trade) Dose Ordered Sig/Vicenta Route PRN Reason Start Time Stop Time Status Last Admin Dose Admin Acetaminophen (Tylenol) 650 mg Q4H PRN NG Fever 10/20/17 12:29 11/19/17 12:28 10/20/17 15:45 Acetaminophen/ Hydrocodone Bitart ([place] 5/325) 1 tab Q6H PRN ORAL For Pain 10/19/17 11:15 10/25/17 05:14 Artificial Tears (Akwa-Tears) 1 drop Q6H PRN BOTH EYES dry eyes 10/19/17 11:15 11/17/17 05:14 10/20/17 15:37 Dextrose/Sodium Chloride 1,000 ml @ 50 mls/hr Q20H IV 10/19/17 08:00 11/16/17 07:59 10/21/17 01:11 Heparin Sodium (Porcine) (Heparin 5000 units/ml) 5,000 units EVERY 12 HOURS SUBQ 10/19/17 09:00 11/17/17 08:59 Levetiracetam 100 ml @ 400 mls/hr Q12HR IVPB 10/19/17 10:00 11/18/17 09:59 10/20/17 20:29 Lorazepam (Ativan 2mg/ml 1ml) 2 mg Q2H PRN IV For Seizures 10/19/17 14:30 10/26/17 14:29 Ondansetron HCl (Zofran) 4 mg Q6H PRN IVP Nausea & Vomiting 10/19/17 08:00 11/16/17 07:59 Pantoprazole (Protonix) 40 mg DAILY IVP 10/20/17 12:36 11/19/17 12:35 10/20/17 11:58 Piperacillin Sod/ Tazobactam Sod 3.375 gm/Dextrose 110 ml @ 27.5 mls/hr EVERY 8 HOURS IVPB 10/19/17 14:00 10/23/17 17:59 10/21/17 05:05 Potassium Chloride 100 ml @ 100 mls/hr Q1H IVPB 10/21/17 07:30 10/21/17 11:29 10/21/17 07:58 Vancomycin HCl (Vanco rx to dose) 1 ea DAILY PRN MISC Per rx protocol 10/19/17 09:00 11/17/17 15:59 Vancomycin HCl/ Dextrose 250 ml @ 166.667 mls/hr Q12HR@1000,2200 IVPB 10/19/17 10:00 10/23/17 21:59 10/20/17 21:24 Zolpidem Tartrate (Ambien) 5 mg HSPRN PRN ORAL Insomnia 10/19/17 18:00 10/24/17 17:59 Nikita Mobley M.D. Oct 21, 2017 08:13
[2017-10-21] MEDS: levETIRAcetam 500mg/NS100ml 100 ML IVPB SCH ×2 (08:44→21:01)
[2017-10-21] MEDS: Pantoprazole Inj IVP SCH (08:44)
[2017-10-21] MEDS: Heparin 5000 units/ml inj SUBQ SCH ×2 (08:44→21:00)
[2017-10-21] MEDS: Vancomycin 1250mg/D5W 250ml 250 ML IVPB SCH ×2 (09:24→22:10)
--- NOTE | 2017-10-21 09:52 | Pulmonolgy Critical Care Note ---
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 Discussed with: nurses, consultants, patient case managerinteractive media project manager - Objective Last 24 Hour Vital Signs Date Time Temp Pulse Resp B/P (MAP) Pulse Ox O2 Delivery O2 Flow Rate FiO2 10/21/17 09:00 105 15 105/62 (76) 97 10/21/17 08:00 82 16 99/62 (74) 97 10/21/17 08:00 Mechanical Ventilator 10/21/17 08:00 28 10/21/17 07:38 97 10/21/17 07:29 89 22 28 10/21/17 07:00 98.7 95 19 103/67 (79) 96 98.7 10/21/17 06:00 108 21 131/82 (98) 94 10/21/17 05:10 85 19 28 10/21/17 05:00 96 18 107/65 (79) 100 10/21/17 04:00 94 10/21/17 04:00 Mechanical Ventilator 10/21/17 04:00 98.8 93 18 106/63 (77) 100 98.8 10/21/17 04:00 28 10/21/17 03:00 99 18 129/83 (98) 100 10/21/17 02:53 99 19 28 10/21/17 02:00 98.5 97 18 122/75 (91) 100 98.5 10/21/17 01:04 99 18 28 10/21/17 01:00 93 18 127/75 (92) 100 10/21/17 00:00 99.0 98 18 149/73 (98) 100 99.0 10/21/17 00:00 93 10/21/17 00:00 Mechanical Ventilator 10/20/17 23:10 89 21 28 10/20/17 23:00 98 18 126/71 (89) 98 10/20/17 22:00 96 18 112/65 (81) 98 10/20/17 21:15 91 18 28 10/20/17 21:00 90 17 112/79 (90) 98 10/20/17 20:00 89 16 129/77 (94) 98 10/20/17 20:00 86 10/20/17 20:00 28 10/20/17 20:00 Mechanical Ventilator 10/20/17 20:00 88 19 28 10/20/17 19:00 99.2 91 17 118/72 (87) 99 99.2 10/20/17 18:00 86 15 118/71 (87) 99 10/20/17 17:00 80 15 116/71 (86) 98 10/20/17 16:50 91 17 28 10/20/17 16:42 99.2 10/20/17 16:00 87 10/20/17 16:00 28 10/20/17 16:00 99.2 88 15 109/73 (85) 98 99.2 10/20/17 16:00 Mechanical Ventilator 10/20/17 15:45 100.0 10/20/17 15:17 88 15 28 10/20/17 15:00 85 15 106/69 (81) 98 10/20/17 14:00 81 15 110/74 (86) 100 10/20/17 13:00 90 15 103/64 (77) 98 10/20/17 12:26 96 17 28 10/20/17 12:00 99.3 92 15 102/66 (78) 98 99.3 10/20/17 12:00 95 10/20/17 12:00 28 10/20/17 12:00 Mechanical Ventilator 10/20/17 11:00 91 15 98/62 (74) 99 10/20/17 10:51 97 15 28 10/20/17 10:24 99.5 10/20/17 10:00 99.5 100 17 110/66 (81) 98 99.5 Status: somnolent Condition: critical HEENT: atraumatic Neck: full ROM Lungs: rales, rhonchi Heart: HR/BP stable Abdomen: soft, non-tender Extremities: no C/C/E Micro: Microbiology Date/Time Source Procedure Growth Status 10/18/17 15:35 Drainage Fluid Gram Stain - Final Complete 10/18/17 15:35 Wound Culture - Final Klebsiella Pneumoniae Staphylococcus Aureus - [facility] Complete Critical Care - Subjective ROS Limited/Unobtainable: Yes Condition: critical EKG Rhythm: Sinus Rhythm FI02: 28 Vent Support Breath Rate: 15 Vent Support Mode: AC Vent Tidal Volume: 500 Sputum Amount: Small PEEP: 0.0 PIP: 23 I&O: Intake and Output 10/20/17 10/21/17 19:00 07:00 Intake Total 1100.000 ml 1115.000 ml Output Total 200 ml 852 ml Balance 900.000 ml 263.000 ml Intake Oral 0 ml 0 ml IV Total 1060.000 ml 1115.000 ml Other 40 ml Output Urine Total 200 ml 852 ml # Bowel Movements 4 6 Labs: Laboratory Tests Test 10/21/17 05:18 White Blood Count 6.0 K/UL (4.8-10.8) Red Blood Count 5.05 M/UL (4.70-6.10) Hemoglobin 15.7 G/DL (14.2-18.0) Hematocrit 47.0 % (42.0-52.0) Mean Corpuscular Volume 93 FL (80-99) Mean Corpuscular Hemoglobin 31.0 PG (27.0-31.0) Mean Corpuscular Hemoglobin Concent 33.4 G/DL (32.0-36.0) Red Cell Distribution Width 11.4 % (11.6-14.8) L Platelet Count 107 K/UL (150-450) L Mean Platelet Volume 7.7 FL (6.5-10.1) Neutrophils (%) (Auto) 66.4 % (45.0-75.0) Lymphocytes (%) (Auto) 23.9 % (20.0-45.0) Monocytes (%) (Auto) 7.7 % (1.0-10.0) Eosinophils (%) (Auto) 0.9 % (0.0-3.0) Basophils (%) (Auto) 1.1 % (0.0-2.0) Sodium Level 138 MMOL/L (136-145) Potassium Level 2.7 MMOL/L (3.5-5.1) *L Chloride Level 103 MMOL/L (98-107) Carbon Dioxide Level 25 MMOL/L (21-32) Anion Gap 11 mmol/L (5-15) Blood Urea Nitrogen 10 mg/dL (7-18) Creatinine 0.7 MG/DL (0.55-1.30) Estimat Glomerular Filtration Rate > 60 mL/min (>60) Glucose Level 96 MG/DL (74-106) Calcium Level 8.3 MG/DL (8.5-10.1) L Total Bilirubin 2.9 MG/DL (0.2-1.0) H Direct Bilirubin 1.0 MG/DL (0.0-0.3) H Aspartate Amino Transf (AST/SGOT) 40 U/L (15-37) H Alanine Aminotransferase (ALT/SGPT) 43 U/L (12-78) Alkaline Phosphatase 391 U/L (46-116) H Pro-B-Type Natriuretic Peptide 452 pg/mL (0-125) H Total Protein 7.4 G/DL (6.4-8.2) Albumin 3.2 G/DL (3.4-5.0) L Globulin 4.2 g/dL Albumin/Globulin Ratio 0.8 (1.0-2.7) L Mellissa Garcia MD Oct 21, 2017 09:52
[2017-10-21] MEDS ORDERED: Metoclopramide 10mg/2ml Inj IVP SCH (11:00)
--- NOTE | 2017-10-21 11:12 | General Surgery Progress Note ---
General Surgery-Progress Note Subjective Additional Comments no acute events. comfortable. in ICU. wound still with drainage. NG tube in place Objective Last 24 Hour Vital Signs Date Time Temp Pulse Resp B/P (MAP) Pulse Ox O2 Delivery O2 Flow Rate FiO2 10/21/17 11:00 107 18 102/61 (75) 95 10/21/17 10:00 98 15 107/63 (78) 95 10/21/17 09:28 98 15 28 10/21/17 09:00 105 15 105/62 (76) 97 10/21/17 08:00 82 16 99/62 (74) 97 10/21/17 08:00 Mechanical Ventilator 10/21/17 08:00 28 10/21/17 07:38 97 10/21/17 07:29 89 22 28 10/21/17 07:00 98.7 95 19 103/67 (79) 96 98.7 10/21/17 06:00 108 21 131/82 (98) 94 10/21/17 05:10 85 19 28 10/21/17 05:00 96 18 107/65 (79) 100 10/21/17 04:00 94 10/21/17 04:00 Mechanical Ventilator 10/21/17 04:00 98.8 93 18 106/63 (77) 100 98.8 10/21/17 04:00 28 10/21/17 03:00 99 18 129/83 (98) 100 10/21/17 02:53 99 19 28 10/21/17 02:00 98.5 97 18 122/75 (91) 100 98.5 10/21/17 01:04 99 18 28 10/21/17 01:00 93 18 127/75 (92) 100 10/21/17 00:00 99.0 98 18 149/73 (98) 100 99.0 10/21/17 00:00 93 10/21/17 00:00 Mechanical Ventilator 10/20/17 23:10 89 21 28 10/20/17 23:00 98 18 126/71 (89) 98 10/20/17 22:00 96 18 112/65 (81) 98 10/20/17 21:15 91 18 28 10/20/17 21:00 90 17 112/79 (90) 98 10/20/17 20:00 89 16 129/77 (94) 98 10/20/17 20:00 86 7/30/18 20:00 28 10/20/17 20:00 Mechanical Ventilator 10/20/17 20:00 88 19 28 10/20/17 19:00 99.2 91 17 118/72 (87) 99 99.2 10/20/17 18:00 86 15 118/71 (87) 99 10/20/17 17:00 80 15 116/71 (86) 98 10/20/17 16:50 91 17 28 10/20/17 16:42 99.2 10/20/17 16:00 87 10/20/17 16:00 28 10/20/17 16:00 99.2 88 15 109/73 (85) 98 99.2 10/20/17 16:00 Mechanical Ventilator 10/20/17 15:45 100.0 10/20/17 15:17 88 15 28 10/20/17 15:00 85 15 106/69 (81) 98 10/20/17 14:00 81 15 110/74 (86) 100 10/20/17 13:00 90 15 103/64 (77) 98 10/20/17 12:26 96 17 28 10/20/17 12:00 99.3 92 15 102/66 (78) 98 99.3 10/20/17 12:00 95 10/20/17 12:00 28 10/20/17 12:00 Mechanical Ventilator I&O Intake and Output 10/20/17 10/21/17 19:00 07:00 Intake Total 1100.000 ml 1115.000 ml Output Total 200 ml 852 ml Balance 900.000 ml 263.000 ml Intake Oral 0 ml 0 ml IV Total 1060.000 ml 1115.000 ml Other 40 ml Output Urine Total 200 ml 852 ml # Bowel Movements 4 6 Dressing: saturated Wound: other Drains: other Cardiovascular: RSR Respiratory: clear Abdomen: soft, distended, tenderness, present bowel sounds Extremities: no cyanosis Laboratory Tests Test 10/21/17 05:18 White Blood Count 6.0 K/UL (4.8-10.8) Red Blood Count 5.05 M/UL (4.70-6.10) Hemoglobin 15.7 G/DL (14.2-18.0) Hematocrit 47.0 % (42.0-52.0) Mean Corpuscular Volume 93 FL (80-99) Mean Corpuscular Hemoglobin 31.0 PG (27.0-31.0) Mean Corpuscular Hemoglobin Concent 33.4 G/DL (32.0-36.0) Red Cell Distribution Width 11.4 % (11.6-14.8) L Platelet Count 107 K/UL (150-450) L Mean Platelet Volume 7.7 FL (6.5-10.1) Neutrophils (%) (Auto) 66.4 % (45.0-75.0) Lymphocytes (%) (Auto) 23.9 % (20.0-45.0) Monocytes (%) (Auto) 7.7 % (1.0-10.0) Eosinophils (%) (Auto) 0.9 % (0.0-3.0) Basophils (%) (Auto) 1.1 % (0.0-2.0) Sodium Level 138 MMOL/L (136-145) Potassium Level 2.7 MMOL/L (3.5-5.1) *L Chloride Level 103 MMOL/L (98-107) Carbon Dioxide Level 25 MMOL/L (21-32) Anion Gap 11 mmol/L (5-15) Blood Urea Nitrogen 10 mg/dL (7-18) Creatinine 0.7 MG/DL (0.55-1.30) Estimat Glomerular Filtration Rate > 60 mL/min (>60) Glucose Level 96 MG/DL (74-106) Calcium Level 8.3 MG/DL (8.5-10.1) L Total Bilirubin 2.9 MG/DL (0.2-1.0) H Direct Bilirubin 1.0 MG/DL (0.0-0.3) H Aspartate Amino Transf (AST/SGOT) 40 U/L (15-37) H Alanine Aminotransferase (ALT/SGPT) 43 U/L (12-78) Alkaline Phosphatase 391 U/L (46-116) H Pro-B-Type Natriuretic Peptide 452 pg/mL (0-125) H Total Protein 7.4 G/DL (6.4-8.2) Albumin 3.2 G/DL (3.4-5.0) L Globulin 4.2 g/dL Albumin/Globulin Ratio 0.8 (1.0-2.7) L Plan Problems: (1) Malfunction of gastrostomy tube Assessment & Plan: large abdominal wound from prior with g tube site open and leaking. ulceration medial and inferior noted. erythema and edema noted. no abscess cellulitis of prior g tube site large and persistent leakage of gastric contents causing ulceration elevated liver function tests ESR nml, CRP mildly elevated. no acute surgical intervention necessary skin protectant keep site clean dressings ultrasound pending will discuss with GI about closure - plan for new tube placement thank you for this consultation. (2) Gastrostomy site leak Robert Gomez Oct 21, 2017 11:12
--- NOTE | 2017-10-21 11:42 | Diagnostic Imaging Report ---
Indication: Dyspnea Technique: XRAY Chest 1v Comparison: 10/17/2017 Findings: Limited exam due to suboptimal positioning. Tracheostomy tube in place. Interval placement of a nasogastric tube, tip in the proximal stomach. Heart size and mediastinal contours stable. There is streaky likely subsegmental atelectasis at the left base. Otherwise no focal consolidation. Costophrenic sulci are sharp. No pneumothorax. No acute osseous abnormality. Impression: Interval placement of a nasogastric tube, tip in the region of the proximal stomach. Mild streaky/linear likely atelectasis at the left base. Otherwise no focal consolidation.
[2017-10-21] MEDS: Acetaminophen 650mg/20.3ml NG PRN (12:13)
--- NOTE | 2017-10-21 15:13 | General Progress Note ---
Assessment/Plan Status: unchanged Assessment/Plan 1. Leukocytosis, secondary to underlying dehydration, to closely monitor for improvement. Also 2/2 recent intubation --> WBC normalized. 2. Hyperproteinemia. Obtain serum protein electrophoresis. 3. G-tube malfunction, referred to gastrointestinal team. 4. Chronic respiratory failure, status post intubation/trach. 5. Erythema around the G-tube site with potential cellulitis, has been seen by ID Service. --> Cultures: Gram + cocci --> Pt on IV abx. 6. Seizure disorder - to see neuro friday for eval --> ativan prn and keprra --> appreciate neuro recs Subjective Date patient seen: Oct 21, 2017 ROS Limited/Unobtainable: Yes Constitutional: Reports: fever Allergies: Coded Allergies: SULFAMETHOXAZOLE (Verified Allergy, Unknown, 10/18/17) TRIMETHOPRIM (Verified Allergy, Unknown, 10/18/17) All Systems: reviewed and negative except above Subjective Pt remains in ICU. Pt awake and alert. Pt remains febrile, cooling measures applied. CXR today shows mild streaky/linear likely atelectasis at the left base. Endoscopy w/ PEG and stoma closure scheduled for tomorrow. Objective Last 24 Hour Vital Signs Date Time Temp Pulse Resp B/P (MAP) Pulse Ox O2 Delivery O2 Flow Rate FiO2 10/21/17 15:03 88 16 28 10/21/17 14:00 83 15 119/75 (90) 98 10/21/17 13:00 90 18 115/68 (84) 98 10/21/17 12:53 88 16 28 10/21/17 12:43 99.9 10/21/17 12:13 99.9 10/21/17 12:00 Mechanical Ventilator 10/21/17 12:00 99.3 102 18 121/75 (90) 98 99.3 10/21/17 12:00 28 10/21/17 11:37 98 10/21/17 11:21 97 18 28 10/21/17 11:00 107 18 102/61 (75) 95 10/21/17 10:00 98 15 107/63 (78) 95 10/21/17 09:28 98 15 28 10/21/17 09:00 105 15 105/62 (76) 97 10/21/17 08:00 82 16 99/62 (74) 97 10/21/17 08:00 Mechanical Ventilator 10/21/17 08:00 28 10/21/17 07:38 97 10/21/17 07:29 89 22 28 10/21/17 07:00 98.7 95 19 103/67 (79) 96 98.7 10/21/17 06:00 108 21 131/82 (98) 94 10/21/17 05:10 85 19 28 10/21/17 05:00 96 18 107/65 (79) 100 10/21/17 04:00 94 10/21/17 04:00 Mechanical Ventilator 10/21/17 04:00 98.8 93 18 106/63 (77) 100 98.8 10/21/17 04:00 28 10/21/17 03:00 99 18 129/83 (98) 100 10/21/17 02:53 99 19 28 10/21/17 02:00 98.5 97 18 122/75 (91) 100 98.5 10/21/17 01:04 99 18 28 10/21/17 01:00 93 18 127/75 (92) 100 10/21/17 00:00 99.0 98 18 149/73 (98) 100 99.0 10/21/17 00:00 93 10/21/17 00:00 Mechanical Ventilator 10/20/17 23:10 89 21 28 10/20/17 23:00 98 18 126/71 (89) 98 10/20/17 22:00 96 18 112/65 (81) 98 10/20/17 21:15 91 18 28 10/20/17 21:00 90 17 112/79 (90) 98 10/20/17 20:00 89 16 129/77 (94) 98 10/20/17 20:00 86 10/20/17 20:00 28 10/20/17 20:00 Mechanical Ventilator 10/20/17 20:00 88 19 28 10/20/17 19:00 99.2 91 17 118/72 (87) 99 99.2 10/20/17 18:00 86 15 118/71 (87) 99 10/20/17 17:00 80 15 116/71 (86) 98 18 16:50 91 17 28 10/20/17 16:00 87 10/20/17 16:00 28 10/20/17 16:00 99.2 88 15 109/73 (85) 98 99.2 10/20/17 16:00 Mechanical Ventilator 10/20/17 15:45 100.0 10/20/17 15:17 88 15 28 Intake and Output 10/20/17 10/21/17 19:00 07:00 Intake Total 1100.000 ml 1115.000 ml Output Total 200 ml 852 ml Balance 900.000 ml 263.000 ml Intake Oral 0 ml 0 ml IV Total 1060.000 ml 1115.000 ml Other 40 ml Output Urine Total 200 ml 852 ml # Bowel Movements 4 6 Laboratory Tests 10/21/17 05:18: White Blood Count 6.0, Red Blood Count 5.05, Hemoglobin 15.7, Hematocrit 47.0, Mean Corpuscular Volume 93, Mean Corpuscular Hemoglobin 31.0, Mean Corpuscular Hemoglobin Concent 33.4, Red Cell Distribution Width 11.4L, Platelet Count 107L , Mean Platelet Volume 7.7, Neutrophils (%) (Auto) 66.4, Lymphocytes (%) (Auto) 23.9, Monocytes (%) (Auto) 7.7, Eosinophils (%) (Auto) 0.9, Basophils (%) (Auto ) 1.1, Sodium Level 138, Potassium Level 2.7*L, Chloride Level 103, Carbon Dioxide Level 25, Anion Gap 11, Blood Urea Nitrogen 10, Creatinine 0.7, Estimat Glomerular Filtration Rate > 60, Glucose Level 96, Calcium Level 8.3L, Total Bilirubin 2.9H, Direct Bilirubin 1.0H, Aspartate Amino Transf (AST/SGOT) 40H, Alanine Aminotransferase (ALT/SGPT) 43, Alkaline Phosphatase 391H, Pro-B-Type Natriuretic Peptide 452H, Total Protein 7.4, Albumin 3.2L, Globulin 4.2, Albumin /Globulin Ratio 0.8L Height (Feet): 5 Height (Inches): 9.00 Weight (Pounds): 180 General Appearance: no apparent distress EENT: PERRL/EOMI Neck: normal alignment Cardiovascular: normal peripheral pulses Respiratory/Chest: no respiratory distress Abdomen: tender Reid Grajeda MD Oct 21, 2017 15:13
--- NOTE | 2017-10-21 15:25 | GI Progress Note ---
Assessment/Plan Problems: (1) Malfunction of gastrostomy tube ICD Codes: K94.23 - Gastrostomy malfunction SNOMED: 418544313 (2) Sepsis ICD Codes: A41.9 - Sepsis, unspecified organism SNOMED: 39745839 (3) Gastrostomy site leak ICD Codes: K94.23 - Gastrostomy malfunction SNOMED: 603710064 (4) Seizures ICD Codes: R56.9 - Unspecified convulsions SNOMED: 54472877 Status: stable Status Narrative Discussed with Dr. Lehman. Assessment/Plan GT leakage s/p removal >> still with severe leakage GT site cellulitis hepatitis panel negative no anemia EGD/PEG tentatively scheduled tomorrow. - NPO @ MN. - hold all blood thinners GT site care TID, would care per surgical NGT electrolyte correction zofran prn abx per ID trend LFTs fu labs The patient was seen and examined at bedside and all new and available data was reviewed in the patients chart. I agree with the above findings, impression and plan. (Patient seen earlier today. Signature stamp does not reflect patient encounter time.). - Kvng Lehman MD Subjective Subjective limited Objective Last 24 Hour Vital Signs Date Time Temp Pulse Resp B/P (MAP) Pulse Ox O2 Delivery O2 Flow Rate FiO2 10/21/17 15:03 88 16 28 10/21/17 14:00 83 15 119/75 (90) 98 10/21/17 13:00 90 18 115/68 (84) 98 10/21/17 12:53 88 16 28 10/21/17 12:43 99.9 10/21/17 12:13 99.9 10/21/17 12:00 Mechanical Ventilator 10/21/17 12:00 99.3 102 18 121/75 (90) 98 99.3 10/21/17 12:00 28 10/21/17 11:37 98 10/21/17 11:21 97 18 28 10/21/17 11:00 107 18 102/61 (75) 95 10/21/17 10:00 98 15 107/63 (78) 95 10/21/17 09:28 98 15 28 10/21/17 09:00 105 15 105/62 (76) 97 10/21/17 08:00 82 16 99/62 (74) 97 10/21/17 08:00 Mechanical Ventilator 10/21/17 08:00 28 10/21/17 07:38 97 10/21/17 07:29 89 22 28 10/21/17 07:00 98.7 95 19 103/67 (79) 96 98.7 10/21/17 06:00 108 21 131/82 (98) 94 10/21/17 05:10 85 19 28 10/21/17 05:00 96 18 107/65 (79) 100 10/21/17 04:00 94 10/21/17 04:00 Mechanical Ventilator 10/21/17 04:00 98.8 93 18 106/63 (77) 100 98.8 10/21/17 04:00 28 10/21/17 03:00 99 18 129/83 (98) 100 10/21/17 02:53 99 19 28 10/21/17 02:00 98.5 97 18 122/75 (91) 100 98.5 10/21/17 01:04 99 18 28 10/21/17 01:00 93 18 127/75 (92) 100 10/21/17 00:00 99.0 98 18 149/73 (98) 100 99.0 10/21/17 00:00 93 10/21/17 00:00 Mechanical Ventilator 10/20/17 23:10 89 21 28 10/20/17 23:00 98 18 126/71 (89) 98 10/20/17 22:00 96 18 112/65 (81) 98 10/20/17 21:15 91 18 28 10/20/17 21:00 90 17 112/79 (90) 98 10/20/17 20:00 89 16 129/77 (94) 98 10/20/17 20:00 86 10/20/17 20:00 28 10/20/17 20:00 Mechanical Ventilator 10/20/17 20:00 88 19 28 10/20/17 19:00 99.2 91 17 118/72 (87) 99 99.2 10/20/17 18:00 86 15 118/71 (87) 99 10/20/17 17:00 80 15 116/71 (86) 98 10/20/17 16:50 91 17 28 10/20/17 16:00 87 10/20/17 16:00 28 7/30/18 16:00 99.2 88 15 109/73 (85) 98 99.2 10/20/17 16:00 Mechanical Ventilator 10/20/17 15:45 100.0 Intake and Output 10/20/17 10/21/17 19:00 07:00 Intake Total 1100.000 ml 1115.000 ml Output Total 200 ml 852 ml Balance 900.000 ml 263.000 ml Intake Oral 0 ml 0 ml IV Total 1060.000 ml 1115.000 ml Other 40 ml Output Urine Total 200 ml 852 ml # Bowel Movements 4 6 Laboratory Tests Test 10/21/17 05:18 White Blood Count 6.0 K/UL (4.8-10.8) Red Blood Count 5.05 M/UL (4.70-6.10) Hemoglobin 15.7 G/DL (14.2-18.0) Hematocrit 47.0 % (42.0-52.0) Mean Corpuscular Volume 93 FL (80-99) Mean Corpuscular Hemoglobin 31.0 PG (27.0-31.0) Mean Corpuscular Hemoglobin Concent 33.4 G/DL (32.0-36.0) Red Cell Distribution Width 11.4 % (11.6-14.8) L Platelet Count 107 K/UL (150-450) L Mean Platelet Volume 7.7 FL (6.5-10.1) Neutrophils (%) (Auto) 66.4 % (45.0-75.0) Lymphocytes (%) (Auto) 23.9 % (20.0-45.0) Monocytes (%) (Auto) 7.7 % (1.0-10.0) Eosinophils (%) (Auto) 0.9 % (0.0-3.0) Basophils (%) (Auto) 1.1 % (0.0-2.0) Sodium Level 138 MMOL/L (136-145) Potassium Level 2.7 MMOL/L (3.5-5.1) *L Chloride Level 103 MMOL/L (98-107) Carbon Dioxide Level 25 MMOL/L (21-32) Anion Gap 11 mmol/L (5-15) Blood Urea Nitrogen 10 mg/dL (7-18) Creatinine 0.7 MG/DL (0.55-1.30) Estimat Glomerular Filtration Rate > 60 mL/min (>60) Glucose Level 96 MG/DL (74-106) Calcium Level 8.3 MG/DL (8.5-10.1) L Total Bilirubin 2.9 MG/DL (0.2-1.0) H Direct Bilirubin 1.0 MG/DL (0.0-0.3) H Aspartate Amino Transf (AST/SGOT) 40 U/L (15-37) H Alanine Aminotransferase (ALT/SGPT) 43 U/L (12-78) Alkaline Phosphatase 391 U/L (46-116) H Pro-B-Type Natriuretic Peptide 452 pg/mL (0-125) H Total Protein 7.4 G/DL (6.4-8.2) Albumin 3.2 G/DL (3.4-5.0) L Globulin 4.2 g/dL Albumin/Globulin Ratio 0.8 (1.0-2.7) L Height (Feet): 5 Height (Inches): 9.00 Weight (Pounds): 180 General Appearance: WD/WN, no apparent distress, alert Cardiovascular: normal rate Respiratory/Chest: normal breath sounds, no respiratory distress Abdominal Exam: normal bowel sounds, non tender, soft Extremities: normal range of motion, non-tender Daisy Bernstein NP Oct 21, 2017 15:25
[2017-10-21] MEDS ORDERED: D5 1/2NS 1000ml IV ONE (15:30)
[2017-10-21] MEDS ORDERED: NS 500ML ONE (15:30)
[2017-10-22] VITALS (17 sets, daily range): BP systolic 81–137; BP diastolic 54–84
[2017-10-22] MEDS: Piperacillin/Tazobactam 3.375 GM in D5W 110 ML IVPB SCH ×3 (06:02→20:52)
[2017-10-22 06:20] LABS: HEMATOCRIT 46.8 % (42.0-52.0); HEMOGLOBIN 16.2 G/DL (14.2-18.0); MEAN CORPUSCULAR VOLUME 93 FL (80-99); PLATELET COUNT 93 K/UL (150-450); RED BLOOD COUNT 5.05 M/UL (4.70-6.10); RED CELL DISTRIBUTION WIDTH 11.6 % (11.6-14.8); WHITE BLOOD COUNT 5.3 K/UL (4.8-10.8)
[2017-10-22 06:24] LABS: INR 1.1 (0.9-1.1)
[2017-10-22 06:32] LABS: ALANINE AMINOTRANSFERASE 43 U/L (12-78); ALBUMIN 3.3 G/DL (3.4-5.0); ALBUMIN/GLOBULIN RATIO 0.8 (1.0-2.7); ALKALINE PHOSPHATASE 399 U/L (46-116); ANION GAP 12 mmol/L (5-15); ASPARTATE AMINO TRANSFERASE 36 U/L (15-37); BILIRUBIN,TOTAL 2.9 MG/DL (0.2-1.0); BLOOD UREA NITROGEN 4 mg/dL (7-18); CALCIUM 8.6 MG/DL (8.5-10.1); CARBON DIOXIDE 25 MMOL/L (21-32); CHLORIDE 103 MMOL/L (98-107); CREATININE 0.7 MG/DL (0.55-1.30); PHOSPHORUS 2.1 MG/DL (2.5-4.9); SODIUM 140 MMOL/L (136-145)
[2017-10-22 06:45] LABS: POTASSIUM 2.6 MMOL/L (3.5-5.1)
[2017-10-22 06:49] LABS: BILIRUBIN,DIRECT 1.1 MG/DL (0.0-0.3)
--- NOTE | 2017-10-22 06:50 | Anethesia Preoperative Eval ---
Anesthesia Pre-op PMH/ROS General Date of Evaluation: Oct 22, 2017 Time of Evaluation: 06:43 Anesthesiologist: so ASA Score: ASA 4 Mallampati Score Class I : Soft palate, uvula, fauces, pillars visible Class II: Soft palate, uvula, fauces visible Class III: Soft palate, base of uvula visible Class IV: Only hard plate visible Mallampati Classification: Class II Surgeon: chris Diagnosis: dysphagia, malfunctioning G-tube Surgical Procedure: peg Anesthesia History: none Family History: no anesthesia problems Allergies: Coded Allergies: SULFAMETHOXAZOLE (Verified Allergy, Unknown, 10/18/17) TRIMETHOPRIM (Verified Allergy, Unknown, 10/18/17) Medications: see eMAR Past Medical History Cardiovascular: Reports: HTN Pulmonary: Reports: COPD, other - chronic respiratory failure, ventilator dependent, tracheostomy, Gastrointestinal/Genitourinary: Reports: other - malfunctioing g-tube, neurogenic bladder, uti, Neurologic/Psychiatric: Reports: depression/anxiety, other - seizure disorder, epilepsy, quadriplegia, polyneuropathy, Endocrine: Reports: hypothyroidism HEENT: Reports: cataract (L), cataract (R) Hematology/Immune: Reports: anemia, other - sepsis Anesthesia Pre-op Phys. Exam Physician Exam Last Vital Signs Date Time Temp Pulse Resp B/P (MAP) Pulse Ox O2 Delivery O2 Flow Rate FiO2 10/22/17 06:00 91 19 121/71 (88) 99 10/22/17 05:20 28 10/22/17 04:00 Mechanical Ventilator 10/22/17 04:00 98.8 98.8 10/19/17 01:00 6.0 Constitutional: NAD Neurologic: other - quadriplegia Cardiovascular: RRR Respiratory: other - tracheostomy ventilator dependent Gastrointestinal: other - g-tube Airway Exam Mallampati Score: Class II MO: limited Neck: tracheostomy TMD: 2fb ROM: limited Teeth: missing Anesthesia Pre-op A/P Labs Hematology Test 10/22/17 06:00 White Blood Count 5.3 K/UL (4.8-10.8) Red Blood Count 5.05 M/UL (4.70-6.10) Hemoglobin 16.2 G/DL (14.2-18.0) Hematocrit 46.8 % (42.0-52.0) Mean Corpuscular Volume 93 FL (80-99) Mean Corpuscular Hemoglobin 32.1 PG (27.0-31.0) H Mean Corpuscular Hemoglobin Concent 34.7 G/DL (32.0-36.0) Red Cell Distribution Width 11.6 % (11.6-14.8) Platelet Count 93 K/UL (150-450) L Mean Platelet Volume 7.4 FL (6.5-10.1) Neutrophils (%) (Auto) % (45.0-75.0) Lymphocytes (%) (Auto) % (20.0-45.0) Monocytes (%) (Auto) % (1.0-10.0) Eosinophils (%) (Auto) % (0.0-3.0) Basophils (%) (Auto) % (0.0-2.0) Coagulation Test 10/22/17 06:00 Prothrombin Time 11.7 SEC (9.30-11.50) H Prothromb Time International Ratio 1.1 (0.9-1.1) Activated Partial Thromboplast Time 26 SEC (23-33) Chemistry Test 10/22/17 06:00 Sodium Level Pending Potassium Level Pending Chloride Level Pending Carbon Dioxide Level Pending Blood Urea Nitrogen Pending Creatinine Pending Estimat Glomerular Filtration Rate Pending Glucose Level Pending Calcium Level Pending Phosphorus Level Pending Magnesium Level Pending Total Bilirubin Pending Aspartate Amino Transf (AST/SGOT) Pending Alanine Aminotransferase (ALT/SGPT) Pending Alkaline Phosphatase Pending Total Protein Pending Albumin Pending Globulin Pending Risk Assessment & Plan Assessment: [email or web address] Plan: mac Status Change Before Surgery: No Pre-Antibiotics Drug: Stephanie Meyer MD Oct 22, 2017 06:50
[2017-10-22] MEDS ORDERED: Midazolam 2mg/2ml Inj IVP PRN (07:00)
[2017-10-22] MEDS ORDERED: Labetalol 5mg/ml 20ml vial IV PRN (07:00)
[2017-10-22] MEDS ORDERED: fentaNYL 100 mcg/2 mL IV PRN (07:00)
[2017-10-22] MEDS ORDERED: Atropine Inj 1mg/10ml Syr IV PRN (07:00)
[2017-10-22] MEDS ORDERED: DiphenhydrAMINE 50mg/ml Inj IVP PRN (07:00)
--- NOTE | 2017-10-22 08:17 | Infectious Diseases Prog Note ---
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 -f/u wound cx -Monitor CBC/CMP, temperatures -aspiration precautions -wound care per hosp protocol -f/u abd US -Sx f/u Thank you for this consultation. Will continue to follow along with you. Subjective Allergies: Coded Allergies: SULFAMETHOXAZOLE (Verified Allergy, Unknown, 10/18/17) TRIMETHOPRIM (Verified Allergy, Unknown, 10/18/17) Subjective Patient awake and alert. Nonverbal but interactive Going to get new PEG today Objective Vital Signs Last 24 Hour Vital Signs Date Time Temp Pulse Resp B/P (MAP) Pulse Ox O2 Delivery O2 Flow Rate FiO2 10/22/17 07:00 90 15 110/71 (84) 97 10/22/17 06:45 88 15 28 10/22/17 06:00 91 19 121/71 (88) 99 10/22/17 05:20 83 16 28 10/22/17 05:00 94 15 119/74 (89) 98 10/22/17 04:00 Mechanical Ventilator 10/22/17 04:00 98.8 96 24 128/84 (99) 98 98.8 10/22/17 04:00 28 10/22/17 04:00 96 10/22/17 03:20 71 15 28 10/22/17 03:00 95 18 115/82 (93) 98 10/22/17 02:00 92 15 119/72 (88) 98 10/22/17 01:29 89 15 28 10/22/17 01:00 90 15 118/73 (88) 98 10/22/17 00:00 28 10/22/17 00:00 98.3 92 18 115/64 (81) 96 98.3 10/22/17 00:00 92 10/22/17 00:00 Mechanical Ventilator 10/21/17 23:13 92 29 28 10/21/17 23:00 94 18 133/81 (98) 98 10/21/17 22:00 97 17 120/91 (101) 98 10/21/17 21:25 101 20 28 10/21/17 21:00 91 20 118/80 (93) 98 10/21/17 20:00 Mechanical Ventilator 10/21/17 20:00 28 10/21/17 20:00 94 10/21/17 20:00 98.7 94 18 110/81 (91) 98 98.7 10/21/17 19:24 95 24 28 10/21/17 19:00 103 19 132/86 (101) 97 10/21/17 18:00 92 16 112/76 (88) 97 10/21/17 17:00 98.8 85 18 108/71 (83) 98 98.8 10/21/17 16:49 85 16 28 10/21/17 16:00 Mechanical Ventilator 10/21/17 16:00 90 15 119/75 (90) 98 10/21/17 16:00 28 10/21/17 15:56 91 10/21/17 15:03 88 16 28 10/21/17 15:00 89 16 123/72 (89) 98 10/21/17 14:00 83 15 119/75 (90) 98 10/21/17 13:00 90 18 115/68 (84) 98 10/21/17 12:53 88 16 28 10/21/17 12:43 99.9 10/21/17 12:13 99.9 10/21/17 12:00 Mechanical Ventilator 10/21/17 12:00 99.3 102 18 121/75 (90) 98 99.3 10/21/17 12:00 28 10/21/17 11:37 98 10/21/17 11:21 97 18 28 10/21/17 11:00 107 18 102/61 (75) 95 10/21/17 10:00 98 15 107/63 (78) 95 10/21/17 09:28 98 15 28 10/21/17 09:00 105 15 105/62 (76) 97 Height (Feet): 5 Height (Inches): 9.00 Weight (Pounds): 179 Objective General Appearance: no apparent distress, alert - responds with eyes and tries to mouth words. Follows commands HEENT: NCAT, MMM, anicteric, Trached Respiratory/Chest: lungs clear, no respiratory distress, no accessory muscle use Cardiovascular/Chest: normal peripheral pulses, normal rate, no JVD Abdomen: normal bowel sounds, non tender, soft, other - site of old G tbe site with dressing Skin Exam: warm/dry Neurologic: abnormal gait - bedridden , other - awake, responds with eyes and nodding , quadriplegia Musculoskeletal: atrophy - BLE Laboratory Tests Test 10/22/17 06:00 White Blood Count 5.3 K/UL (4.8-10.8) Red Blood Count 5.05 M/UL (4.70-6.10) Hemoglobin 16.2 G/DL (14.2-18.0) Hematocrit 46.8 % (42.0-52.0) Mean Corpuscular Volume 93 FL (80-99) Mean Corpuscular Hemoglobin 32.1 PG (27.0-31.0) H Mean Corpuscular Hemoglobin Concent 34.7 G/DL (32.0-36.0) Red Cell Distribution Width 11.6 % (11.6-14.8) Platelet Count 93 K/UL (150-450) L Mean Platelet Volume 7.4 FL (6.5-10.1) Neutrophils (%) (Auto) % (45.0-75.0) Lymphocytes (%) (Auto) % (20.0-45.0) Monocytes (%) (Auto) % (1.0-10.0) Eosinophils (%) (Auto) % (0.0-3.0) Basophils (%) (Auto) % (0.0-2.0) Prothrombin Time 11.7 SEC (9.30-11.50) H Prothromb Time International Ratio 1.1 (0.9-1.1) Activated Partial Thromboplast Time 26 SEC (23-33) Sodium Level 140 MMOL/L (136-145) Potassium Level 2.6 MMOL/L (3.5-5.1) *L Chloride Level 103 MMOL/L (98-107) Carbon Dioxide Level 25 MMOL/L (21-32) Anion Gap 12 mmol/L (5-15) Blood Urea Nitrogen 4 mg/dL (7-18) L Creatinine 0.7 MG/DL (0.55-1.30) Estimat Glomerular Filtration Rate > 60 mL/min (>60) Glucose Level 97 MG/DL (74-106) Calcium Level 8.6 MG/DL (8.5-10.1) Phosphorus Level 2.1 MG/DL (2.5-4.9) L Magnesium Level 1.7 MG/DL (1.8-2.4) L Total Bilirubin 2.9 MG/DL (0.2-1.0) H Direct Bilirubin 1.1 MG/DL (0.0-0.3) H Aspartate Amino Transf (AST/SGOT) 36 U/L (15-37) Alanine Aminotransferase (ALT/SGPT) 43 U/L (12-78) Alkaline Phosphatase 399 U/L (46-116) H Total Protein 7.7 G/DL (6.4-8.2) Albumin 3.3 G/DL (3.4-5.0) L Globulin 4.4 g/dL Albumin/Globulin Ratio 0.8 (1.0-2.7) L Current Medications Medications (Trade) Dose Ordered Sig/Vicenta Route PRN Reason Start Time Stop Time Status Last Admin Dose Admin Acetaminophen (Tylenol) 650 mg Q4H PRN NG Fever 10/20/17 12:29 11/19/17 12:28 10/21/17 12:13 Acetaminophen/ Hydrocodone Bitart (Phil Campbell 5/325) 1 tab Q6H PRN ORAL For Pain 10/19/17 11:15 10/25/17 05:14 Al Hydroxide/Mg Hydroxide (Mylanta) 15 ml Q1H PRN ORAL gi upset 10/22/17 07:00 10/22/17 15:00 Artificial Tears (Akwa-Tears) 1 drop Q6H PRN BOTH EYES dry eyes 10/19/17 11:15 11/17/17 05:14 10/20/17 15:37 Atropine Sulfate (Atropine) 0.5 mg Q5M PRN IV bpm less than 45 10/22/17 07:00 10/22/17 15:00 Dextrose/Sodium Chloride 1,000 ml @ 50 mls/hr Q20H IV 10/19/17 08:00 11/16/17 07:59 10/21/17 20:16 Diphenhydramine HCl (Benadryl) 25 mg Q15M PRN IVP Itching 10/22/17 07:00 10/22/17 15:00 Fentanyl Citrate (Sublimaze 100 mcg/2 mL) 25 mcg Q10M PRN IV Moderate Pain (Pain Scale 4-6) 10/22/17 07:00 10/22/17 15:00 Heparin Sodium (Porcine) (Heparin 5000 units/ml) 5,000 units EVERY 12 HOURS SUBQ 10/19/17 09:00 11/17/17 08:59 10/21/17 21:00 Labetalol HCl (Normodyne) 5 mg Q10M PRN IV SBP>160 or____/ DBP>90 or 10/22/17 07:00 10/22/17 15:00 Levetiracetam 100 ml @ 400 mls/hr Q12HR IVPB 10/19/17 10:00 11/18/17 09:59 10/21/17 21:01 Lorazepam (Ativan 2mg/ml 1ml) 2 mg Q2H PRN IV For Seizures 10/19/17 14:30 10/26/17 14:29 Midazolam HCl (Versed 2mg/2ml vial) 1 mg Q15M PRN IVP For Anxiety 10/22/17 07:00 10/22/17 15:00 Ondansetron HCl (Zofran) 4 mg Q1H PRN IVP Nausea & Vomiting 10/22/17 07:00 10/22/17 15:00 Ondansetron HCl (Zofran) 4 mg Q6H PRN IVP Nausea & Vomiting 10/19/17 08:00 11/16/17 07:59 Pantoprazole (Protonix) 40 mg DAILY IVP 10/20/17 12:36 11/19/17 12:35 10/21/17 08:44 Piperacillin Sod/ Tazobactam Sod 3.375 gm/Dextrose 110 ml @ 27.5 mls/hr EVERY 8 HOURS IVPB 10/19/17 14:00 10/23/17 17:59 10/22/17 06:02 Sodium Chloride 1,000 ml @ 10 mls/hr Q24H IVLG 10/22/17 06:49 10/22/17 08:48 Vancomycin HCl (Vanco rx to dose) 1 ea DAILY PRN MISC Per rx protocol 10/19/17 09:00 11/17/17 15:59 Vancomycin HCl/ Dextrose 250 ml @ 166.667 mls/hr Q12HR@1000,2200 IVPB 10/19/17 10:00 10/23/17 21:59 10/21/17 22:10 Zolpidem Tartrate (Ambien) 5 mg HSPRN PRN ORAL Insomnia 10/19/17 18:00 10/24/17 17:59 Nikita Mobley M.D. Oct 22, 2017 08:17
[2017-10-22] MEDS: levETIRAcetam 500mg/NS100ml 100 ML IVPB SCH ×2 (08:37→20:51)
[2017-10-22] MEDS: Pantoprazole Inj IVP SCH (08:37)
[2017-10-22] MEDS ORDERED: Propofol 200mg/20ml IV ONE (09:00)
[2017-10-22] MEDS: Heparin 5000 units/ml inj SUBQ SCH (09:00)
[2017-10-22] MEDS ORDERED: Atropine Sulfate 0.4mg/ml inj ONE (09:00)
[2017-10-22] MEDS ORDERED: Lidocaine 1% MPF 10mg/ml 5ml ONE (09:00)
--- NOTE | 2017-10-22 09:21 | Pre-Procedure Note/Attestation ---
Pre-Procedure Note/Attestation Complete Prior to Procedure Planned Procedure: not applicable Procedure Narrative: esophagogastroduodenoscopy and GJT placement Indications for Procedure Pre-Operative Diagnosis: dysphagia Attestation I attest that I discussed the nature of the procedure; its benefits; risks and complications; and alternatives (and the risks and benefits of such alternatives ), prior to the procedure, with the patient (or the patient's legal international sales representative). I attest that, if there was a reasonable possibility of needing a blood transfusion, the patient (or the patient's legal international sales representative) was given the [facility] standardized written summary, pursuant to the Bunny [place] Blood Safety Act ([place] Health and Safety Code # 1645, as amended). I attest that I re-evaluated the patient just prior to the surgery and that there has been no change in the patient's H&P, except as documented below: Kvng Lehman MD Oct 22, 2017 09:21
[2017-10-22] MEDS ORDERED: NS 275ml IVPB ONE (09:30)
--- NOTE | 2017-10-22 09:51 | Endoscopy Procedure Note ---
Endoscopy Procedure Note General Indication for Procedure: dysphagia Procedures Performed: EGD Operative Findings/Diagnosis: same Specimen: none Pt Tolerated Procedure Well: Yes Estimated Blood Loss: none Anesthesia Anesthesiologist: araceli Anesthesia: MAC Inserted Devices Implant(s) used?: No GI Core Measures 50 yrs or older w/o bx or poly: Not Applicable 10yrs. F/U not recommended: Not Applicable Kvng Lehman MD Oct 22, 2017 09:51
--- NOTE | 2017-10-22 10:12 | Immediate Post-Op Evaluation ---
Immediate Post-Op Evalulation Immediate Post-Op Evalulation Procedure: egd, g-tube to g-j tube Date of Evaluation: Oct 22, 2017 Time of Evaluation: 10:02 IV Fluids: 60ml 0.9ns Blood Products: none Estimated Blood Loss: negligible Blood Pressure Systolic: 102 Blood Pressure Diastolic: 66 Pulse Rate: 96 Respiratory Rate: 15 O2 Sat by Pulse Oximetry: 97 Pain Score (1-10): 0 Nausea: No Vomiting: No Complications none Patient Status: awake, reacts, patent, ventilated Hydration Status: adequate Drug: Stephanie Meyer MD Oct 22, 2017 10:12
--- NOTE | 2017-10-22 10:20 | Pulmonolgy Critical Care Note ---
Critical Care - Asmt/Plan Problems: (1) Chronic respiratory failure (2) Sepsis (3) Gastrostomy site leak (4) Seizures (5) Quadriplegia Respiratory: monitor respiratory rate, adjust FIO2 Cardiac: continue to monitor HR/BP Renal: F/U I&O, keep IV fluid, check electrolytes, other - K, phos, Mg replacement Infectious Disease: continue antibiotics Gastrointestinal: start feedings Endocrine: monitor blood sugar Hematologic: monitor H/H, transfuse if hgb<8.5 Neurologic: PRN Ativan, PRN Morphine, keep patient comfortable Prophylaxis: Heparin Notes Reviewed: horticulture instructor, cardio, renal Discussed with: nurses, consultants, disease case manager rnhardware manager - Objective Last 24 Hour Vital Signs Date Time Temp Pulse Resp B/P (MAP) Pulse Ox O2 Delivery O2 Flow Rate FiO2 10/22/17 09:06 86 18 28 10/22/17 09:00 85 15 104/67 (79) 95 10/22/17 08:00 86 10/22/17 08:00 28 10/22/17 08:00 Mechanical Ventilator 10/22/17 08:00 98.0 88 15 123/74 (90) 99 98.0 10/22/17 07:00 90 15 110/71 (84) 97 10/22/17 06:45 88 15 28 10/22/17 06:00 91 19 121/71 (88) 99 10/22/17 05:20 83 16 28 10/22/17 05:00 94 15 119/74 (89) 98 10/22/17 04:00 Mechanical Ventilator 10/22/17 04:00 98.8 96 24 128/84 (99) 98 98.8 10/22/17 04:00 28 10/22/17 04:00 96 10/22/17 03:20 71 15 28 10/22/17 03:00 95 18 115/82 (93) 98 10/22/17 02:00 92 15 119/72 (88) 98 10/22/17 01:29 89 15 28 10/22/17 01:00 90 15 118/73 (88) 98 10/22/17 00:00 28 10/22/17 00:00 98.3 92 18 115/64 (81) 96 98.3 10/22/17 00:00 92 10/22/17 00:00 Mechanical Ventilator 10/21/17 23:13 92 29 28 10/21/17 23:00 94 18 133/81 (98) 98 10/21/17 22:00 97 17 120/91 (101) 98 10/21/17 21:25 101 20 28 10/21/17 21:00 91 20 118/80 (93) 98 10/21/17 20:00 Mechanical Ventilator 10/21/17 20:00 28 10/21/17 20:00 94 10/21/17 20:00 98.7 94 18 110/81 (91) 98 98.7 10/21/17 19:24 95 24 28 10/21/17 19:00 103 19 132/86 (101) 97 10/21/17 18:00 92 16 112/76 (88) 97 10/21/17 17:00 98.8 85 18 108/71 (83) 98 98.8 10/21/17 16:49 85 16 28 10/21/17 16:00 Mechanical Ventilator 10/21/17 16:00 90 15 119/75 (90) 98 10/21/17 16:00 28 10/21/17 15:56 91 10/21/17 15:03 88 16 28 10/21/17 15:00 89 16 123/72 (89) 98 10/21/17 14:00 83 15 119/75 (90) 98 10/21/17 13:00 90 18 115/68 (84) 98 10/21/17 12:53 88 16 28 10/21/17 12:43 99.9 10/21/17 12:13 99.9 10/21/17 12:00 Mechanical Ventilator 10/21/17 12:00 99.3 102 18 121/75 (90) 98 99.3 10/21/17 12:00 28 10/21/17 11:37 98 10/21/17 11:21 97 18 28 10/21/17 11:00 107 18 102/61 (75) 95 Status: obtunded Condition: critical HEENT: atraumatic Lungs: clear Heart: HR/BP stable Abdomen: soft, non-tender Extremities: no C/C/E Decubiti: location Critical Care - Subjective Interval Events: Gtube placed Condition: critical FI02: 28 Vent Support Breath Rate: 15 Vent Support Mode: AC Vent Tidal Volume: 500 Sputum Amount: Moderate PEEP: 0.0 PIP: 27 I&O: Intake and Output 10/21/17 10/22/17 19:00 07:00 Intake Total 1425.000 ml 1170.0 ml Output Total 505 ml 800 ml Balance 920.000 ml 370.0 ml Intake Oral 0 ml 0 ml IV Total 1415.000 ml 1170.0 ml Other 10 ml Output Urine Total 505 ml 800 ml # Bowel Movements 1 Labs: Laboratory Tests Test 10/22/17 06:00 White Blood Count 5.3 K/UL (4.8-10.8) Red Blood Count 5.05 M/UL (4.70-6.10) Hemoglobin 16.2 G/DL (14.2-18.0) Hematocrit 46.8 % (42.0-52.0) Mean Corpuscular Volume 93 FL (80-99) Mean Corpuscular Hemoglobin 32.1 PG (27.0-31.0) H Mean Corpuscular Hemoglobin Concent 34.7 G/DL (32.0-36.0) Red Cell Distribution Width 11.6 % (11.6-14.8) Platelet Count 93 K/UL (150-450) L Mean Platelet Volume 7.4 FL (6.5-10.1) Neutrophils (%) (Auto) % (45.0-75.0) Lymphocytes (%) (Auto) % (20.0-45.0) Monocytes (%) (Auto) % (1.0-10.0) Eosinophils (%) (Auto) % (0.0-3.0) Basophils (%) (Auto) % (0.0-2.0) Prothrombin Time 11.7 SEC (9.30-11.50) H Prothromb Time International Ratio 1.1 (0.9-1.1) Activated Partial Thromboplast Time 26 SEC (23-33) Sodium Level 140 MMOL/L (136-145) Potassium Level 2.6 MMOL/L (3.5-5.1) *L Chloride Level 103 MMOL/L (98-107) Carbon Dioxide Level 25 MMOL/L (21-32) Anion Gap 12 mmol/L (5-15) Blood Urea Nitrogen 4 mg/dL (7-18) L Creatinine 0.7 MG/DL (0.55-1.30) Estimat Glomerular Filtration Rate > 60 mL/min (>60) Glucose Level 97 MG/DL (74-106) Calcium Level 8.6 MG/DL (8.5-10.1) Phosphorus Level 2.1 MG/DL (2.5-4.9) L Magnesium Level 1.7 MG/DL (1.8-2.4) L Total Bilirubin 2.9 MG/DL (0.2-1.0) H Direct Bilirubin 1.1 MG/DL (0.0-0.3) H Aspartate Amino Transf (AST/SGOT) 36 U/L (15-37) Alanine Aminotransferase (ALT/SGPT) 43 U/L (12-78) Alkaline Phosphatase 399 U/L (46-116) H Total Protein 7.7 G/DL (6.4-8.2) Albumin 3.3 G/DL (3.4-5.0) L Globulin 4.4 g/dL Albumin/Globulin Ratio 0.8 (1.0-2.7) L Mellissa Garcia MD Oct 22, 2017 10:20
[2017-10-22] MEDS ORDERED: Potassium Phosphate 30 MM in NS 275 ML IV SCH (11:30)
--- NOTE | 2017-10-22 12:14 | 48 Hour Post Anesthesia Eval ---
Post Anesthesia Evaluation Procedure: egd, g-tube to g-j tube Date of Evaluation: Oct 22, 2017 Time of Evaluation: 12:12 Blood Pressure Systolic: 105 0: 59 Pulse Rate: 82 Respiratory Rate: 15 Temperature (Fahrenheit): 98.0 O2 Sat by Pulse Oximetry: 95 Airway: patent Nausea: No Vomiting: No Pain Intensity: 0 Hydration Status: adequate Cardiopulmonary Status: stable Mental Status/LOC: patient returned to baseline Post-Anesthesia Complications: none Follow-up care needed: N/A Stephanie Rolon MD Oct 22, 2017 12:14
--- NOTE | 2017-10-22 13:36 | Diagnostic Imaging Report ---
Indication: Abdominal distention Technique: Doll-scale and duplex images of the upper abdomen were obtained Comparison: none Findings: Gallbladder demonstrates wall thickening, gallbladder wall measuring up to 7 mm thick. It appears somewhat edematous, although gallbladder is nondistended. Echogenic foci are seen within the gallbladder lumen, which only equivocally shadow and appear nonmobile. Sonographic Jarrett's sign could not be assessed, due to patient condition. Common bile duct measures by mm in diameter. No intrahepatic biliary ductal dilatation. Liver demonstrates normal echogenicity, no focal abnormality. There is equivocally mild surface micronodularity of the anterior left lobe Portal vein and hepatic veins are patent. Pancreas is unremarkable. Spleen is unremarkable. Left kidney measures 10.1 cm in length. Right kidney measures 11.9 cm length. There is a small left renal parapelvic cyst and a small right renal cortical cyst. There is no hydronephrosis. Normal renal echogenicity . Abdominal aorta is partially obscured by bowel gas, visualized portions are non-aneurysmal . Impression: Nonmobile echogenic foci within the gallbladder lumen, may reflect nonmobile gallstones versus polyps Thickened edematous gallbladder wall. Possibilities include acute cholecystitis, reactive gallbladder wall thickening secondary to adjacent acute hepatitis or due to hemodynamic derangements related to hepatic disease if such is present Equivocal surface micronodular a of the left hepatic lobe, could indicate early cirrhotic changes Incidental finding left renal parapelvic cyst and small right renal cortical cyst Note incomplete visualization of the abdominal aorta
--- NOTE | 2017-10-22 16:15 | Procedure Note ---
DATE OF PROCEDURE: 10/22/2017 SURGEON: Kvng Lehman M.D. ANESTHESIOLOGIST: Dr. Erwin. PROCEDURE: Upper endoscopy with tube placement. ANESTHESIA: Per Dr. Erwin. INSTRUMENT: Olympus adult flexible upper endoscope. INDICATION: Persistent G-tube leakage, dysphagia. The procedure, risks, benefits, and possible consequences, including hemorrhage, aspiration, perforation and infection, and alternative treatments, were explained to the patient/legal guardian by Dr. Kvng Lehman and the patient/legal guardian understood and accepted these risks. DESCRIPTION OF PROCEDURE: After informed consent was obtained and the patient was adequately sedated, Olympus upper endoscope was advanced from the mouth into the second portion of duodenum and retroflexion was performed in the stomach. The patient had evidence of severe gastritis. Then at this point, 24-Czech J-tube was introduced through the old leaking G-tube site and using a rat-tooth alligator, it was pushed all the way down into the jejunum. After tube was successfully placed, a balloon was inflated to secure the position. The patient tolerated the procedure very well without any complication. SUMMARY OF FINDINGS: Status post successful J-tube placement. RECOMMENDATIONS: Start feeding later today, flushing tube, monitor for relapse. Kvng Lehman M.D. DR: Ángela JOB#: [id number] CC:
[2017-10-22] MEDS ORDERED: Potassium Phosphate 30 MM in NS 275 ML IV ONE (16:45)
[2017-10-22] MEDS ORDERED: LORazepam Inj 2mg/ml 1ml IV PRN (17:00)
[2017-10-22] MEDS ORDERED: Norco 5mg/325mg tab ORAL PRN (17:15)
[2017-10-22] MEDS ORDERED: Artificial Tears 1.4% Op Soln BOTH EYES PRN (17:15)
[2017-10-22] MEDS: D5 1/2NS 1,000 ML IV SCH ×2 (17:43→17:49)
--- NOTE | 2017-10-22 18:25 | General Progress Note ---
Assessment/Plan Status: stable Assessment/Plan 1. Leukocytosis, secondary to underlying dehydration, to closely monitor for improvement. Also 2/2 recent intubation --> WBC normalized. 2. Hyperproteinemia. Obtain serum protein electrophoresis. 3. G-tube malfunction, referred to gastrointestinal team. 4. Chronic respiratory failure, status post intubation/trach. 5. Erythema around the G-tube site with potential cellulitis, has been seen by ID Service. --> Cultures: Gram + cocci --> Pt on IV abx. 6. Seizure disorder - to see neuro friday for eval --> ativan prn and keprra --> appreciate neuro recs Subjective Date patient seen: Oct 22, 2017 ROS Limited/Unobtainable: Yes Allergies: Coded Allergies: SULFAMETHOXAZOLE (Verified Allergy, Unknown, 10/18/17) TRIMETHOPRIM (Verified Allergy, Unknown, 10/18/17) All Systems: reviewed and negative except above Subjective Pt transferred from ICU to GUS. Pt awake and alert. S/P EGD GJT placement, tolerated well. US abd today shows nonmobile echogenic foci within the gallbladder lumen, may reflect nonmobile gallstones versus polyps. Objective Last 24 Hour Vital Signs Date Time Temp Pulse Resp B/P (MAP) Pulse Ox O2 Delivery O2 Flow Rate FiO2 10/22/17 17:16 84 16 28 10/22/17 16:00 28 10/22/17 16:00 98.6 86 16 122/71 (88) 99 98.6 10/22/17 16:00 Mechanical Ventilator 10/22/17 15:26 83 10/22/17 14:58 81 15 28 10/22/17 14:00 77 15 119/67 (84) 98 10/22/17 13:02 77 15 28 10/22/17 13:00 99.0 78 15 102/65 (77) 98 99.0 10/22/17 12:14 208.4 82 15 95 10/22/17 12:11 96 15 97 10/22/17 12:00 Mechanical Ventilator 10/22/17 12:00 82 15 105/59 (74) 98 10/22/17 12:00 79 10/22/17 12:00 28 10/22/17 11:00 86 15 105/60 (75) 98 10/22/17 10:49 86 15 28 10/22/17 10:00 91 15 81/54 (63) 98 10/22/17 09:06 86 18 28 10/22/17 09:00 85 15 104/67 (79) 95 10/22/17 08:00 86 10/22/17 08:00 28 10/22/17 08:00 Mechanical Ventilator 10/22/17 08:00 98.0 88 15 123/74 (90) 99 98.0 10/22/17 07:00 90 15 110/71 (84) 97 10/22/17 06:45 88 15 28 10/22/17 06:00 91 19 121/71 (88) 99 10/22/17 05:20 83 16 28 10/22/17 05:00 94 15 119/74 (89) 98 10/22/17 04:00 Mechanical Ventilator 10/22/17 04:00 98.8 96 24 128/84 (99) 98 98.8 10/22/17 04:00 28 10/22/17 04:00 96 10/22/17 03:20 71 15 28 10/22/17 03:00 95 18 115/82 (93) 98 10/22/17 02:00 92 15 119/72 (88) 98 10/22/17 01:29 89 15 28 10/22/17 01:00 90 15 118/73 (88) 98 10/22/17 00:00 28 10/22/17 00:00 98.3 92 18 115/64 (81) 96 98.3 10/22/17 00:00 92 10/22/17 00:00 Mechanical Ventilator 10/21/17 23:13 92 29 28 10/21/17 23:00 94 18 133/81 (98) 98 10/21/17 22:00 97 17 120/91 (101) 98 10/21/17 21:25 101 20 28 10/21/17 21:00 91 20 118/80 (93) 98 10/21/17 20:00 Mechanical Ventilator 10/21/17 20:00 28 10/21/17 20:00 94 10/21/17 20:00 98.7 94 18 110/81 (91) 98 98.7 10/21/17 19:24 95 24 28 10/21/17 19:00 103 19 132/86 (101) 97 Intake and Output 10/21/17 10/22/17 19:00 07:00 Intake Total 1425.000 ml 1170.0 ml Output Total 505 ml 800 ml Balance 920.000 ml 370.0 ml Intake Oral 0 ml 0 ml IV Total 1415.000 ml 1170.0 ml Other 10 ml Output Urine Total 505 ml 800 ml # Bowel Movements 1 Laboratory Tests 10/22/17 06:00: White Blood Count 5.3, Red Blood Count 5.05, Hemoglobin 16.2, Hematocrit 46.8, Mean Corpuscular Volume 93, Mean Corpuscular Hemoglobin 32.1H, Mean Corpuscular Hemoglobin Concent 34.7, Red Cell Distribution Width 11.6, Platelet Count 93L, Mean Platelet Volume 7.4, Neutrophils (%) (Auto) , Lymphocytes (%) (Auto) , Monocytes (%) (Auto) , Eosinophils (%) (Auto) , Basophils (%) (Auto) , Prothrombin Time 11.7H, Prothromb Time International Ratio 1.1, Activated Partial Thromboplast Time 26, Sodium Level 140, Potassium Level 2.6*L, Chloride Level 103, Carbon Dioxide Level 25, Anion Gap 12, Blood Urea Nitrogen 4L, Creatinine 0.7, Estimat Glomerular Filtration Rate > 60, Glucose Level 97, Calcium Level 8.6, Phosphorus Level 2.1L, Magnesium Level 1.7L, Total Bilirubin 2.9H, Direct Bilirubin 1.1H, Aspartate Amino Transf (AST/SGOT) 36, Alanine Aminotransferase (ALT/SGPT) 43, Alkaline Phosphatase 399H, Total Protein 7.7, Albumin 3.3L, Globulin 4.4, Albumin/Globulin Ratio 0.8L Height (Feet): 5 Height (Inches): 9.00 Weight (Pounds): 179 General Appearance: no apparent distress EENT: PERRL/EOMI Neck: normal alignment Cardiovascular: normal peripheral pulses Respiratory/Chest: no respiratory distress Abdomen: soft Reid Grajeda MD Oct 22, 2017 18:25
[2017-10-22] MEDS ORDERED: Tubing Blood Filter IV ONE (18:35)
[2017-10-22] MEDS ORDERED: D5 1/2NS 1000ml IV ONE (18:35)
[2017-10-22] MEDS ORDERED: Tubing IV Secondary IV ONE (18:35)
[2017-10-22] MEDS ORDERED: NS 275ml ONE (18:35)
[2017-10-22] MEDS ORDERED: Zolpidem 5mg tab ORAL PRN (21:00)
[2017-10-23] VITALS: BP 123/75
[2017-10-23 04:00] VITALS: BP 132/67
[2017-10-23 06:14] LABS: BASOPHILS % (AUTO) 0.6 % (0.0-2.0); HEMATOCRIT 49.5 % (42.0-52.0); HEMOGLOBIN 16.5 G/DL (14.2-18.0); LYMPHOCYTES % (AUTO) 8.8 % (20.0-45.0); MEAN CORPUSCULAR VOLUME 94 FL (80-99); MONOCYTES % (AUTO) 6.3 % (1.0-10.0); NEUTROPHILS % (AUTO) 83.3 % (45.0-75.0); PLATELET COUNT 119 K/UL (150-450); RED BLOOD COUNT 5.28 M/UL (4.70-6.10); RED CELL DISTRIBUTION WIDTH 11.7 % (11.6-14.8); WHITE BLOOD COUNT 8.7 K/UL (4.8-10.8)
[2017-10-23 06:34] LABS: ALANINE AMINOTRANSFERASE 38 U/L (12-78); ALBUMIN 3.1 G/DL (3.4-5.0); ALBUMIN/GLOBULIN RATIO 0.7 (1.0-2.7); ALKALINE PHOSPHATASE 382 U/L (46-116); ANION GAP 14 mmol/L (5-15); ASPARTATE AMINO TRANSFERASE 33 U/L (15-37); BILIRUBIN,TOTAL 2.6 MG/DL (0.2-1.0); BLOOD UREA NITROGEN 3 mg/dL (7-18); CALCIUM 8.3 MG/DL (8.5-10.1); CARBON DIOXIDE 23 MMOL/L (21-32); CHLORIDE 100 MMOL/L (98-107); CREATININE 0.7 MG/DL (0.55-1.30); PHOSPHORUS 2.4 MG/DL (2.5-4.9); SODIUM 136 MMOL/L (136-145)
[2017-10-23 06:36] LABS: POTASSIUM 2.5 MMOL/L (3.5-5.1)
[2017-10-23] MEDS: Piperacillin/Tazobactam 3.375 GM in D5W 110 ML IVPB SCH ×3 (06:42→22:05)
[2017-10-23 06:43] LABS: BILIRUBIN,DIRECT 1.1 MG/DL (0.0-0.3)
[2017-10-23 08:00] VITALS: BP 91/54
--- NOTE | 2017-10-23 08:40 | General Progress Note ---
Assessment/Plan Status: stable Assessment/Plan 1. Leukocytosis, secondary to underlying dehydration, to closely monitor for improvement. Also 2/2 recent intubation --> WBC normalized. 2. Hyperproteinemia. Obtain serum protein electrophoresis. 3. G-tube malfunction, referred to gastrointestinal team. 4. Chronic respiratory failure, status post intubation/trach. 5. Erythema around the G-tube site with potential cellulitis, has been seen by ID Service. --> Cultures: Gram + cocci --> Pt on IV abx. 6. Seizure disorder - to see neuro friday for eval --> ativan prn and keprra --> appreciate neuro recs Subjective Date patient seen: Oct 23, 2017 ROS Limited/Unobtainable: Yes Allergies: Coded Allergies: SULFAMETHOXAZOLE (Verified Allergy, Unknown, 10/18/17) TRIMETHOPRIM (Verified Allergy, Unknown, 10/18/17) All Systems: reviewed and negative except above Subjective Pt remains on vent. No acute events. Objective Last 24 Hour Vital Signs Date Time Temp Pulse Resp B/P (MAP) Pulse Ox O2 Delivery O2 Flow Rate FiO2 10/23/17 08:23 99 10/23/17 07:09 108 26 28 10/23/17 05:26 104 24 28 10/23/17 04:00 99.1 113 24 132/67 (88) 95 99.1 10/23/17 04:00 28 10/23/17 04:00 107 10/23/17 04:00 Mechanical Ventilator 10/23/17 02:30 108 26 28 10/23/17 01:07 110 28 28 10/23/17 00:00 97 10/23/17 00:00 Mechanical Ventilator 10/23/17 00:00 99.2 105 23 123/75 (91) 99 99.2 10/23/17 00:00 28 10/22/17 23:10 97 21 28 10/22/17 21:14 88 26 28 10/22/17 20:00 98.5 89 20 137/74 (95) 99 98.5 10/22/17 20:00 Mechanical Ventilator 10/22/17 20:00 28 10/22/17 20:00 84 10/22/17 19:29 108 23 28 10/22/17 17:16 84 16 28 10/22/17 16:00 28 10/22/17 16:00 98.6 86 16 122/71 (88) 99 98.6 10/22/17 16:00 Mechanical Ventilator 10/22/17 15:26 83 10/22/17 14:58 81 15 28 10/22/17 14:00 77 15 119/67 (84) 98 10/22/17 13:02 77 15 28 10/22/17 13:00 99.0 78 15 102/65 (77) 98 99.0 10/22/17 12:14 208.4 82 15 95 10/22/17 12:11 96 15 97 10/22/17 12:00 Mechanical Ventilator 10/22/17 12:00 82 15 105/59 (74) 98 10/22/17 12:00 79 10/22/17 12:00 28 10/22/17 11:00 86 15 105/60 (75) 98 10/22/17 10:49 86 15 28 10/22/17 10:00 91 15 81/54 (63) 98 10/22/17 09:06 86 18 28 10/22/17 09:00 85 15 104/67 (79) 95 Intake and Output 10/22/17 10/23/17 19:00 07:00 Intake Total 804.2 ml 880 ml Output Total 400 ml Balance 404.2 ml 880 ml Intake Oral 0 ml 180 ml Free Water 100 ml IV Total 764.2 ml 600 ml Other 40 ml Output Urine Total 400 ml # Voids 1 # Bowel Movements 3 3 Laboratory Tests 10/23/17 05:19: White Blood Count 8.7#, Red Blood Count 5.28, Hemoglobin 16.5, Hematocrit 49.5, Mean Corpuscular Volume 94, Mean Corpuscular Hemoglobin 31.2H, Mean Corpuscular Hemoglobin Concent 33.3, Red Cell Distribution Width 11.7, Platelet Count 119L, Mean Platelet Volume 8.0, Neutrophils (%) (Auto) 83.3H, Lymphocytes (%) (Auto) 8.8L, Monocytes (%) (Auto) 6.3, Eosinophils (%) (Auto) 1.0, Basophils (%) (Auto ) 0.6, Prothrombin Time 10.9, Prothromb Time International Ratio 1.0, Activated Partial Thromboplast Time 27, Sodium Level 136, Potassium Level 2.5*L, Chloride Level 100, Carbon Dioxide Level 23, Anion Gap 14, Blood Urea Nitrogen 3L, Creatinine 0.7, Estimat Glomerular Filtration Rate > 60, Glucose Level 242#H, Calcium Level 8.3L, Phosphorus Level 2.4L, Magnesium Level 8.2*H, Total Bilirubin 2.6H, Direct Bilirubin 1.1H, Aspartate Amino Transf (AST/SGOT) 33, Alanine Aminotransferase (ALT/SGPT) 38, Alkaline Phosphatase 382H, Total Protein 7.6, Albumin 3.1L, Globulin 4.5, Albumin/Globulin Ratio 0.7L Height (Feet): 5 Height (Inches): 9.00 Weight (Pounds): 179 General Appearance: no apparent distress EENT: PERRL/EOMI Neck: normal alignment Cardiovascular: tachycardia Respiratory/Chest: no respiratory distress Abdomen: soft Reid Grajeda MD Oct 23, 2017 08:40
[2017-10-23] MEDS: levETIRAcetam 500mg/NS100ml 100 ML IVPB SCH ×2 (09:26→22:05)
[2017-10-23] MEDS: Pantoprazole Inj IVP SCH (09:27)
[2017-10-23] MEDS: Heparin 5000 units/ml inj SUBQ SCH ×2 (09:31→22:06)
--- NOTE | 2017-10-23 10:28 | GI Progress Note ---
Assessment/Plan Problems: (1) Malfunction of gastrostomy tube ICD Codes: K94.23 - Gastrostomy malfunction SNOMED: 151539909 (2) Sepsis ICD Codes: A41.9 - Sepsis, unspecified organism SNOMED: 65312286 (3) Gastrostomy site leak ICD Codes: K94.23 - Gastrostomy malfunction SNOMED: 752319843 (4) Seizures ICD Codes: R56.9 - Unspecified convulsions SNOMED: 21605890 Status: progressing Status Narrative Discussed with Dr. Lehman. Assessment/Plan s/p J tube placement GT site cellulitis hepatitis panel negative no anemia supportive care GT site care TID, would care per surgical GTFs per RD electrolyte correction zofran prn abx per ID trend LFTs fu labs The patient was seen and examined at bedside and all new and available data was reviewed in the patients chart. I agree with the above findings, impression and plan. (Patient seen earlier today. Signature stamp does not reflect patient encounter time.). - Kvng Lehman MD Subjective Subjective limited Objective Last 24 Hour Vital Signs Date Time Temp Pulse Resp B/P (MAP) Pulse Ox O2 Delivery O2 Flow Rate FiO2 10/23/17 09:22 101 15 28 10/23/17 08:23 99 10/23/17 07:09 108 26 28 10/23/17 05:26 104 24 28 10/23/17 04:00 99.1 113 24 132/67 (88) 95 99.1 10/23/17 04:00 28 10/23/17 04:00 107 10/23/17 04:00 Mechanical Ventilator 10/23/17 02:30 108 26 28 10/23/17 01:07 110 28 28 10/23/17 00:00 97 10/23/17 00:00 Mechanical Ventilator 10/23/17 00:00 99.2 105 23 123/75 (91) 99 99.2 10/23/17 00:00 28 10/22/17 23:10 97 21 28 10/22/17 21:14 88 26 28 10/22/17 20:00 98.5 89 20 137/74 (95) 99 98.5 10/22/17 20:00 Mechanical Ventilator 10/22/17 20:00 28 10/22/17 20:00 84 10/22/17 19:29 108 23 28 10/22/17 17:16 84 16 28 10/22/17 16:00 28 10/22/17 16:00 98.6 86 16 122/71 (88) 99 98.6 10/22/17 16:00 Mechanical Ventilator 10/22/17 15:26 83 10/22/17 14:58 81 15 28 10/22/17 14:00 77 15 119/67 (84) 98 10/22/17 13:02 77 15 28 10/22/17 13:00 99.0 78 15 102/65 (77) 98 99.0 10/22/17 12:14 208.4 82 15 95 10/22/17 12:11 96 15 97 10/22/17 12:00 Mechanical Ventilator 10/22/17 12:00 82 15 105/59 (74) 98 10/22/17 12:00 79 10/22/17 12:00 28 10/22/17 11:00 86 15 105/60 (75) 98 10/22/17 10:49 86 15 28 Intake and Output 10/22/17 10/23/17 19:00 07:00 Intake Total 804.2 ml 880 ml Output Total 400 ml Balance 404.2 ml 880 ml Intake Oral 0 ml 180 ml Free Water 100 ml IV Total 764.2 ml 600 ml Other 40 ml Output Urine Total 400 ml # Voids 1 # Bowel Movements 3 3 Laboratory Tests Test 10/23/17 05:19 White Blood Count 8.7 K/UL (4.8-10.8) # Red Blood Count 5.28 M/UL (4.70-6.10) Hemoglobin 16.5 G/DL (14.2-18.0) Hematocrit 49.5 % (42.0-52.0) Mean Corpuscular Volume 94 FL (80-99) Mean Corpuscular Hemoglobin 31.2 PG (27.0-31.0) H Mean Corpuscular Hemoglobin Concent 33.3 G/DL (32.0-36.0) Red Cell Distribution Width 11.7 % (11.6-14.8) Platelet Count 119 K/UL (150-450) L Mean Platelet Volume 8.0 FL (6.5-10.1) Neutrophils (%) (Auto) 83.3 % (45.0-75.0) H Lymphocytes (%) (Auto) 8.8 % (20.0-45.0) L Monocytes (%) (Auto) 6.3 % (1.0-10.0) Eosinophils (%) (Auto) 1.0 % (0.0-3.0) Basophils (%) (Auto) 0.6 % (0.0-2.0) Prothrombin Time 10.9 SEC (9.30-11.50) Prothromb Time International Ratio 1.0 (0.9-1.1) Activated Partial Thromboplast Time 27 SEC (23-33) Sodium Level 136 MMOL/L (136-145) Potassium Level 2.5 MMOL/L (3.5-5.1) *L Chloride Level 100 MMOL/L (98-107) Carbon Dioxide Level 23 MMOL/L (21-32) Anion Gap 14 mmol/L (5-15) Blood Urea Nitrogen 3 mg/dL (7-18) L Creatinine 0.7 MG/DL (0.55-1.30) Estimat Glomerular Filtration Rate > 60 mL/min (>60) Glucose Level 242 MG/DL (74-106) #H Calcium Level 8.3 MG/DL (8.5-10.1) L Phosphorus Level 2.4 MG/DL (2.5-4.9) L Magnesium Level 8.2 MG/DL (1.8-2.4) *H Total Bilirubin 2.6 MG/DL (0.2-1.0) H Direct Bilirubin 1.1 MG/DL (0.0-0.3) H Aspartate Amino Transf (AST/SGOT) 33 U/L (15-37) Alanine Aminotransferase (ALT/SGPT) 38 U/L (12-78) Alkaline Phosphatase 382 U/L (46-116) H Total Protein 7.6 G/DL (6.4-8.2) Albumin 3.1 G/DL (3.4-5.0) L Globulin 4.5 g/dL Albumin/Globulin Ratio 0.7 (1.0-2.7) L Height (Feet): 5 Height (Inches): 9.00 Weight (Pounds): 179 General Appearance: WD/WN, no apparent distress, alert Cardiovascular: normal rate Respiratory/Chest: normal breath sounds, no respiratory distress, other - mech vent Abdominal Exam: normal bowel sounds, non tender, soft, other - J tube Extremities: non-tender Daisy Bernstein NP Oct 23, 2017 10:28
--- NOTE | 2017-10-23 10:52 | General Surgery Progress Note ---
General Surgery-Progress Note Subjective Additional Comments doing well. new g tube in place and functional. minimal leak around tube. cellulitis much improved. Objective Last 24 Hour Vital Signs Date Time Temp Pulse Resp B/P (MAP) Pulse Ox O2 Delivery O2 Flow Rate FiO2 10/23/17 09:22 101 15 28 10/23/17 08:23 99 10/23/17 07:09 108 26 28 10/23/17 05:26 104 24 28 10/23/17 04:00 99.1 113 24 132/67 (88) 95 99.1 10/23/17 04:00 28 10/23/17 04:00 107 10/23/17 04:00 Mechanical Ventilator 10/23/17 02:30 108 26 28 10/23/17 01:07 110 28 28 10/23/17 00:00 97 10/23/17 00:00 Mechanical Ventilator 10/23/17 00:00 99.2 105 23 123/75 (91) 99 99.2 10/23/17 00:00 28 10/22/17 23:10 97 21 28 10/22/17 21:14 88 26 28 10/22/17 20:00 98.5 89 20 137/74 (95) 99 98.5 10/22/17 20:00 Mechanical Ventilator 10/22/17 20:00 28 10/22/17 20:00 84 10/22/17 19:29 108 23 28 10/22/17 17:16 84 16 28 10/22/17 16:00 28 10/22/17 16:00 98.6 86 16 122/71 (88) 99 98.6 10/22/17 16:00 Mechanical Ventilator 10/22/17 15:26 83 10/22/17 14:58 81 15 28 10/22/17 14:00 77 15 119/67 (84) 98 10/22/17 13:02 77 15 28 10/22/17 13:00 99.0 78 15 102/65 (77) 98 99.0 10/22/17 12:14 208.4 82 15 95 10/22/17 12:11 96 15 97 10/22/17 12:00 Mechanical Ventilator 10/22/17 12:00 82 15 105/59 (74) 98 10/22/17 12:00 79 10/22/17 12:00 28 10/22/17 11:00 86 15 105/60 (75) 98 I&O Intake and Output 10/22/17 10/23/17 19:00 07:00 Intake Total 804.2 ml 880 ml Output Total 400 ml Balance 404.2 ml 880 ml Intake Oral 0 ml 180 ml Free Water 100 ml IV Total 764.2 ml 600 ml Other 40 ml Output Urine Total 400 ml # Voids 1 # Bowel Movements 3 3 Dressing: saturated Wound: clean Drains: none Cardiovascular: RSR Respiratory: clear Abdomen: soft, flat Extremities: no cyanosis Laboratory Tests Test 10/23/17 05:19 White Blood Count 8.7 K/UL (4.8-10.8) # Red Blood Count 5.28 M/UL (4.70-6.10) Hemoglobin 16.5 G/DL (14.2-18.0) Hematocrit 49.5 % (42.0-52.0) Mean Corpuscular Volume 94 FL (80-99) Mean Corpuscular Hemoglobin 31.2 PG (27.0-31.0) H Mean Corpuscular Hemoglobin Concent 33.3 G/DL (32.0-36.0) Red Cell Distribution Width 11.7 % (11.6-14.8) Platelet Count 119 K/UL (150-450) L Mean Platelet Volume 8.0 FL (6.5-10.1) Neutrophils (%) (Auto) 83.3 % (45.0-75.0) H Lymphocytes (%) (Auto) 8.8 % (20.0-45.0) L Monocytes (%) (Auto) 6.3 % (1.0-10.0) Eosinophils (%) (Auto) 1.0 % (0.0-3.0) Basophils (%) (Auto) 0.6 % (0.0-2.0) Prothrombin Time 10.9 SEC (9.30-11.50) Prothromb Time International Ratio 1.0 (0.9-1.1) Activated Partial Thromboplast Time 27 SEC (23-33) Sodium Level 136 MMOL/L (136-145) Potassium Level 2.5 MMOL/L (3.5-5.1) *L Chloride Level 100 MMOL/L (98-107) Carbon Dioxide Level 23 MMOL/L (21-32) Anion Gap 14 mmol/L (5-15) Blood Urea Nitrogen 3 mg/dL (7-18) L Creatinine 0.7 MG/DL (0.55-1.30) Estimat Glomerular Filtration Rate > 60 mL/min (>60) Glucose Level 242 MG/DL (74-106) #H Calcium Level 8.3 MG/DL (8.5-10.1) L Phosphorus Level 2.4 MG/DL (2.5-4.9) L Magnesium Level 8.2 MG/DL (1.8-2.4) *H Total Bilirubin 2.6 MG/DL (0.2-1.0) H Direct Bilirubin 1.1 MG/DL (0.0-0.3) H Aspartate Amino Transf (AST/SGOT) 33 U/L (15-37) Alanine Aminotransferase (ALT/SGPT) 38 U/L (12-78) Alkaline Phosphatase 382 U/L (46-116) H Total Protein 7.6 G/DL (6.4-8.2) Albumin 3.1 G/DL (3.4-5.0) L Globulin 4.5 g/dL Albumin/Globulin Ratio 0.7 (1.0-2.7) L Plan Problems: (1) Malfunction of gastrostomy tube Assessment & Plan: large abdominal wound from prior with g tube site open and leaking. ulceration medial and inferior noted. erythema and edema noted. no abscess cellulitis of prior g tube site large and persistent leakage of gastric contents causing ulceration elevated liver function tests ESR nml, CRP mildly elevated. no acute surgical intervention necessary skin protectant keep site clean dressings s/p g tube placement thank you for this consultation. (2) Gastrostomy site leak Robert Gomez Oct 23, 2017 10:52
--- NOTE | 2017-10-23 11:25 | Pulmonolgy Critical Care Note ---
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 - Objective Last 24 Hour Vital Signs Date Time Temp Pulse Resp B/P (MAP) Pulse Ox O2 Delivery O2 Flow Rate FiO2 10/23/17 09:22 101 15 28 10/23/17 08:23 99 10/23/17 08:00 Mechanical Ventilator 10/23/17 08:00 28 10/23/17 08:00 99.8 102 20 91/54 (66) 95 99.8 10/23/17 07:09 108 26 28 10/23/17 05:26 104 24 28 10/23/17 04:00 99.1 113 24 132/67 (88) 95 99.1 10/23/17 04:00 28 10/23/17 04:00 107 10/23/17 04:00 Mechanical Ventilator 10/23/17 02:30 108 26 28 10/23/17 01:07 110 28 28 10/23/17 00:00 97 10/23/17 00:00 Mechanical Ventilator 10/23/17 00:00 99.2 105 23 123/75 (91) 99 99.2 10/23/17 00:00 28 10/22/17 23:10 97 21 28 10/22/17 21:14 88 26 28 10/22/17 20:00 98.5 89 20 137/74 (95) 99 98.5 10/22/17 20:00 Mechanical Ventilator 10/22/17 20:00 28 10/22/17 20:00 84 10/22/17 19:29 108 23 28 10/22/17 17:16 84 16 28 10/22/17 16:00 28 10/22/17 16:00 98.6 86 16 122/71 (88) 99 98.6 10/22/17 16:00 Mechanical Ventilator 10/22/17 15:26 83 10/22/17 14:58 81 15 28 10/22/17 14:00 77 15 119/67 (84) 98 10/22/17 13:02 77 15 28 10/22/17 13:00 99.0 78 15 102/65 (77) 98 99.0 10/22/17 12:14 208.4 82 15 95 10/22/17 12:11 96 15 97 10/22/17 12:00 Mechanical Ventilator 10/22/17 12:00 82 15 105/59 (74) 98 10/22/17 12:00 79 10/22/17 12:00 28 Status: sedated Condition: critical HEENT: atraumatic Neck: full ROM Heart: HR/BP stable, HR/BP unstable Abdomen: non-tender, active bowel sounds Extremities: no C/C/E, edema Critical Care - Subjective ROS Limited/Unobtainable: Yes Condition: critical FI02: 28 Vent Support Breath Rate: 15 Vent Support Mode: AC Vent Tidal Volume: 500 Sputum Amount: Moderate PEEP: 0.0 PIP: 23 I&O: Intake and Output 10/22/17 10/23/17 19:00 07:00 Intake Total 804.2 ml 880 ml Output Total 400 ml Balance 404.2 ml 880 ml Intake Oral 0 ml 180 ml Free Water 100 ml IV Total 764.2 ml 600 ml Other 40 ml Output Urine Total 400 ml # Voids 1 # Bowel Movements 3 3 Labs: Laboratory Tests Test 10/23/17 05:19 White Blood Count 8.7 K/UL (4.8-10.8) # Red Blood Count 5.28 M/UL (4.70-6.10) Hemoglobin 16.5 G/DL (14.2-18.0) Hematocrit 49.5 % (42.0-52.0) Mean Corpuscular Volume 94 FL (80-99) Mean Corpuscular Hemoglobin 31.2 PG (27.0-31.0) H Mean Corpuscular Hemoglobin Concent 33.3 G/DL (32.0-36.0) Red Cell Distribution Width 11.7 % (11.6-14.8) Platelet Count 119 K/UL (150-450) L Mean Platelet Volume 8.0 FL (6.5-10.1) Neutrophils (%) (Auto) 83.3 % (45.0-75.0) H Lymphocytes (%) (Auto) 8.8 % (20.0-45.0) L Monocytes (%) (Auto) 6.3 % (1.0-10.0) Eosinophils (%) (Auto) 1.0 % (0.0-3.0) Basophils (%) (Auto) 0.6 % (0.0-2.0) Prothrombin Time 10.9 SEC (9.30-11.50) Prothromb Time International Ratio 1.0 (0.9-1.1) Activated Partial Thromboplast Time 27 SEC (23-33) Sodium Level 136 MMOL/L (136-145) Potassium Level 2.5 MMOL/L (3.5-5.1) *L Chloride Level 100 MMOL/L (98-107) Carbon Dioxide Level 23 MMOL/L (21-32) Anion Gap 14 mmol/L (5-15) Blood Urea Nitrogen 3 mg/dL (7-18) L Creatinine 0.7 MG/DL (0.55-1.30) Estimat Glomerular Filtration Rate > 60 mL/min (>60) Glucose Level 242 MG/DL (74-106) #H Calcium Level 8.3 MG/DL (8.5-10.1) L Phosphorus Level 2.4 MG/DL (2.5-4.9) L Magnesium Level 8.2 MG/DL (1.8-2.4) *H Total Bilirubin 2.6 MG/DL (0.2-1.0) H Direct Bilirubin 1.1 MG/DL (0.0-0.3) H Aspartate Amino Transf (AST/SGOT) 33 U/L (15-37) Alanine Aminotransferase (ALT/SGPT) 38 U/L (12-78) Alkaline Phosphatase 382 U/L (46-116) H Total Protein 7.6 G/DL (6.4-8.2) Albumin 3.1 G/DL (3.4-5.0) L Globulin 4.5 g/dL Albumin/Globulin Ratio 0.7 (1.0-2.7) L Mellissa Garcia MD Oct 23, 2017 11:25
[2017-10-23 11:37] VITALS: BP 91/49
--- NOTE | 2017-10-23 11:43 | Pulmonolgy Critical Care Note ---
Critical Care - Asmt/Plan Problems: (1) Sepsis (2) Chronic respiratory failure (3) Gastrostomy site leak (4) Seizures (5) Quadriplegia Assessment/Plan: got J-tube yesterday. febrile now Respiratory: monitor respiratory rate, adjust FIO2, CXR Cardiac: continue to monitor HR/BP Renal: F/U I&O, keep IV fluid Infectious Disease: check cultures Gastrointestinal: continue feedings/current rate Endocrine: monitor blood sugar Hematologic: monitor H/H Neurologic: PRN Morphine Prophylaxis: Protonix Time Spent (Minutes): 30 Critical Care - Objective Last 24 Hour Vital Signs Date Time Temp Pulse Resp B/P (MAP) Pulse Ox O2 Delivery O2 Flow Rate FiO2 10/23/17 11:37 101.0 101 17 91/49 (63) 97 101.0 10/23/17 10:46 98 20 28 10/23/17 09:22 101 15 28 10/23/17 08:23 99 10/23/17 08:00 Mechanical Ventilator 10/23/17 08:00 28 10/23/17 08:00 99.8 102 20 91/54 (66) 95 99.8 10/23/17 07:09 108 26 28 10/23/17 05:26 104 24 28 10/23/17 04:00 99.1 113 24 132/67 (88) 95 99.1 10/23/17 04:00 28 10/23/17 04:00 107 10/23/17 04:00 Mechanical Ventilator 10/23/17 02:30 108 26 28 10/23/17 01:07 110 28 28 10/23/17 00:00 97 10/23/17 00:00 Mechanical Ventilator 10/23/17 00:00 99.2 105 23 123/75 (91) 99 99.2 10/23/17 00:00 28 10/22/17 23:10 97 21 28 10/22/17 21:14 88 26 28 10/22/17 20:00 98.5 89 20 137/74 (95) 99 98.5 10/22/17 20:00 Mechanical Ventilator 10/22/17 20:00 28 10/22/17 20:00 84 10/22/17 19:29 108 23 28 10/22/17 17:16 84 16 28 10/22/17 16:00 28 10/22/17 16:00 98.6 86 16 122/71 (88) 99 98.6 10/22/17 16:00 Mechanical Ventilator 10/22/17 15:26 83 10/22/17 14:58 81 15 28 10/22/17 14:00 77 15 119/67 (84) 98 10/22/17 13:02 77 15 28 10/22/17 13:00 99.0 78 15 102/65 (77) 98 99.0 10/22/17 12:14 208.4 82 15 95 10/22/17 12:11 96 15 97 10/22/17 12:00 Mechanical Ventilator 10/22/17 12:00 82 15 105/59 (74) 98 10/22/17 12:00 79 10/22/17 12:00 28 Status: awake Condition: critical Neck: full ROM Lungs: clear Heart: HR/BP stable Abdomen: non-tender, feeding tube Extremities: edema Critical Care - Subjective ROS Limited/Unobtainable: Yes Condition: critical FI02: 28 Vent Support Breath Rate: 15 Vent Support Mode: AC Vent Tidal Volume: 500 Sputum Amount: Moderate PEEP: 0.0 PIP: 22 I&O: Intake and Output 10/22/17 10/23/17 19:00 07:00 Intake Total 804.2 ml 910 ml Output Total 400 ml Balance 404.2 ml 910 ml Intake Oral 0 ml 210 ml Free Water 100 ml IV Total 764.2 ml 600 ml Other 40 ml Output Urine Total 400 ml # Voids 1 # Bowel Movements 3 3 Labs: Laboratory Tests Test 10/23/17 05:19 White Blood Count 8.7 K/UL (4.8-10.8) # Red Blood Count 5.28 M/UL (4.70-6.10) Hemoglobin 16.5 G/DL (14.2-18.0) Hematocrit 49.5 % (42.0-52.0) Mean Corpuscular Volume 94 FL (80-99) Mean Corpuscular Hemoglobin 31.2 PG (27.0-31.0) H Mean Corpuscular Hemoglobin Concent 33.3 G/DL (32.0-36.0) Red Cell Distribution Width 11.7 % (11.6-14.8) Platelet Count 119 K/UL (150-450) L Mean Platelet Volume 8.0 FL (6.5-10.1) Neutrophils (%) (Auto) 83.3 % (45.0-75.0) H Lymphocytes (%) (Auto) 8.8 % (20.0-45.0) L Monocytes (%) (Auto) 6.3 % (1.0-10.0) Eosinophils (%) (Auto) 1.0 % (0.0-3.0) Basophils (%) (Auto) 0.6 % (0.0-2.0) Prothrombin Time 10.9 SEC (9.30-11.50) Prothromb Time International Ratio 1.0 (0.9-1.1) Activated Partial Thromboplast Time 27 SEC (23-33) Sodium Level 136 MMOL/L (136-145) Potassium Level 2.5 MMOL/L (3.5-5.1) *L Chloride Level 100 MMOL/L (98-107) Carbon Dioxide Level 23 MMOL/L (21-32) Anion Gap 14 mmol/L (5-15) Blood Urea Nitrogen 3 mg/dL (7-18) L Creatinine 0.7 MG/DL (0.55-1.30) Estimat Glomerular Filtration Rate > 60 mL/min (>60) Glucose Level 242 MG/DL (74-106) #H Calcium Level 8.3 MG/DL (8.5-10.1) L Phosphorus Level 2.4 MG/DL (2.5-4.9) L Magnesium Level 8.2 MG/DL (1.8-2.4) *H Total Bilirubin 2.6 MG/DL (0.2-1.0) H Direct Bilirubin 1.1 MG/DL (0.0-0.3) H Aspartate Amino Transf (AST/SGOT) 33 U/L (15-37) Alanine Aminotransferase (ALT/SGPT) 38 U/L (12-78) Alkaline Phosphatase 382 U/L (46-116) H Total Protein 7.6 G/DL (6.4-8.2) Albumin 3.1 G/DL (3.4-5.0) L Globulin 4.5 g/dL Albumin/Globulin Ratio 0.7 (1.0-2.7) L Mellissa Garcia MD Oct 23, 2017 11:42
[2017-10-23] MEDS: Acetaminophen 650mg/20.3ml NG PRN (12:19)
[2017-10-23] MEDS: D5 1/2NS 1,000 ML IV SCH (12:20)
[2017-10-23] MEDS ORDERED: Sterile Water Irrig 1000ml IRRIG ONE (14:52)
[2017-10-23] MEDS ORDERED: D5 1/2NS 1000ml IV ONE (14:52)
[2017-10-23] MEDS ORDERED: Tubing IV Secondary IV ONE (14:52)
[2017-10-23 16:00] VITALS: BP 90/52
--- NOTE | 2017-10-23 17:09 | Infectious Diseases Prog Note ---
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 pneumo) Afebrile, no leukocytosis chronic resp failure s/p trach dysphagia s/p [facility] resident Plan: - Continue Zosyn #4 and Vancomycin #4 if febrile tomorrow will switch to Meropenem -Monitor CBC/CMP, temperatures -aspiration precautions -wound care per hosp protocol -f/u abd US -Sx f/u Thank you for this consultation. Will continue to follow along with you. Subjective Allergies: Coded Allergies: SULFAMETHOXAZOLE (Verified Allergy, Unknown, 10/18/17) TRIMETHOPRIM (Verified Allergy, Unknown, 10/18/17) Subjective Patient awake and alert. Nonverbal but interactive Febrile Objective Vital Signs Last 24 Hour Vital Signs Date Time Temp Pulse Resp B/P (MAP) Pulse Ox O2 Delivery O2 Flow Rate FiO2 10/23/17 16:00 100.1 90 22 90/52 (65) 100 100.1 10/23/17 16:00 Mechanical Ventilator 10/23/17 14:50 92 21 28 10/23/17 12:49 100.2 10/23/17 12:48 99 18 28 10/23/17 12:19 101.0 10/23/17 12:00 94 10/23/17 12:00 28 10/23/17 12:00 Mechanical Ventilator 10/23/17 11:37 101.0 101 17 91/49 (63) 97 101.0 10/23/17 10:46 98 20 28 10/23/17 09:22 101 15 28 10/23/17 08:23 99 10/23/17 08:00 Mechanical Ventilator 10/23/17 08:00 28 10/23/17 08:00 99.8 102 20 91/54 (66) 95 99.8 10/23/17 07:09 108 26 28 10/23/17 05:26 104 24 28 10/23/17 04:00 99.1 113 24 132/67 (88) 95 99.1 10/23/17 04:00 28 10/23/17 04:00 107 10/23/17 04:00 Mechanical Ventilator 10/23/17 02:30 108 26 28 10/23/17 01:07 110 28 28 10/23/17 00:00 97 10/23/17 00:00 Mechanical Ventilator 10/23/17 00:00 99.2 105 23 123/75 (91) 99 99.2 10/23/17 00:00 28 10/22/17 23:10 97 21 28 10/22/17 21:14 88 26 28 10/22/17 20:00 98.5 89 20 137/74 (95) 99 98.5 10/22/17 20:00 Mechanical Ventilator 10/22/17 20:00 28 10/22/17 20:00 84 10/22/17 19:29 108 23 28 10/22/17 17:16 84 16 28 Height (Feet): 5 Height (Inches): 9.00 Weight (Pounds): 179 Objective General Appearance: no apparent distress, alert - responds with eyes and tries to mouth words. HEENT: NCAT, MMM, anicteric, Trached Respiratory/Chest: lungs clear, no respiratory distress Cardiovascular/Chest: normal peripheral pulses, normal rate, no JVD Abdomen: normal bowel sounds, non tender, soft, other - site of old G tube site with dressing Skin Exam: warm/dry Neurologic: abnormal gait - bedridden , other - awake, responds with eyes and nodding , quadriplegia Musculoskeletal: atrophy - BLE Laboratory Tests Test 10/23/17 05:19 White Blood Count 8.7 K/UL (4.8-10.8) # Red Blood Count 5.28 M/UL (4.70-6.10) Hemoglobin 16.5 G/DL (14.2-18.0) Hematocrit 49.5 % (42.0-52.0) Mean Corpuscular Volume 94 FL (80-99) Mean Corpuscular Hemoglobin 31.2 PG (27.0-31.0) H Mean Corpuscular Hemoglobin Concent 33.3 G/DL (32.0-36.0) Red Cell Distribution Width 11.7 % (11.6-14.8) Platelet Count 119 K/UL (150-450) L Mean Platelet Volume 8.0 FL (6.5-10.1) Neutrophils (%) (Auto) 83.3 % (45.0-75.0) H Lymphocytes (%) (Auto) 8.8 % (20.0-45.0) L Monocytes (%) (Auto) 6.3 % (1.0-10.0) Eosinophils (%) (Auto) 1.0 % (0.0-3.0) Basophils (%) (Auto) 0.6 % (0.0-2.0) Prothrombin Time 10.9 SEC (9.30-11.50) Prothromb Time International Ratio 1.0 (0.9-1.1) Activated Partial Thromboplast Time 27 SEC (23-33) Sodium Level 136 MMOL/L (136-145) Potassium Level 2.5 MMOL/L (3.5-5.1) *L Chloride Level 100 MMOL/L (98-107) Carbon Dioxide Level 23 MMOL/L (21-32) Anion Gap 14 mmol/L (5-15) Blood Urea Nitrogen 3 mg/dL (7-18) L Creatinine 0.7 MG/DL (0.55-1.30) Estimat Glomerular Filtration Rate > 60 mL/min (>60) Glucose Level 242 MG/DL (74-106) #H Calcium Level 8.3 MG/DL (8.5-10.1) L Phosphorus Level 2.4 MG/DL (2.5-4.9) L Magnesium Level 8.2 MG/DL (1.8-2.4) *H Total Bilirubin 2.6 MG/DL (0.2-1.0) H Direct Bilirubin 1.1 MG/DL (0.0-0.3) H Aspartate Amino Transf (AST/SGOT) 33 U/L (15-37) Alanine Aminotransferase (ALT/SGPT) 38 U/L (12-78) Alkaline Phosphatase 382 U/L (46-116) H Total Protein 7.6 G/DL (6.4-8.2) Albumin 3.1 G/DL (3.4-5.0) L Globulin 4.5 g/dL Albumin/Globulin Ratio 0.7 (1.0-2.7) L Current Medications Medications (Trade) Dose Ordered Sig/Vicenta Route PRN Reason Start Time Stop Time Status Last Admin Dose Admin Acetaminophen (Tylenol) 650 mg Q4H PRN NG T>100.5 10/22/17 17:00 11/19/17 16:59 10/23/17 12:19 Acetaminophen/ Hydrocodone Bitart ([place] 5/325) 1 tab Q6H PRN ORAL PAIN 4-10 10/22/17 17:15 10/25/17 05:14 Artificial Tears (Akwa-Tears) 1 drop Q6H PRN BOTH EYES dry eyes 10/22/17 17:15 11/17/17 05:14 Dextrose/Sodium Chloride 1,000 ml @ 50 mls/hr Q20H IV 10/22/17 17:30 11/16/17 17:29 10/23/17 12:20 Heparin Sodium (Porcine) (Heparin 5000 units/ml) 5,000 units EVERY 12 HOURS SUBQ 10/23/17 09:00 11/22/17 08:59 10/23/17 09:31 Levetiracetam 100 ml @ 400 mls/hr Q12HR IVPB 10/22/17 21:00 11/18/17 09:59 10/23/17 09:26 Lorazepam (Ativan 2mg/ml 1ml) 2 mg Q2H PRN IV For Seizures 10/22/17 17:00 10/26/17 16:59 Ondansetron HCl (Zofran) 4 mg Q6H PRN IVP Nausea & Vomiting 10/22/17 17:00 11/16/17 16:59 Pantoprazole (Protonix) 40 mg DAILY IVP 10/23/17 09:00 11/19/17 12:35 10/23/17 09:27 Piperacillin Sod/ Tazobactam Sod 3.375 gm/Dextrose 110 ml @ 27.5 mls/hr EVERY 8 HOURS IVPB 10/22/17 22:00 10/27/17 13:59 10/23/17 14:12 Potassium Chloride (K-Dur) 40 meq Q4H ORAL 10/23/17 11:00 10/23/17 19:01 10/23/17 15:34 Zolpidem Tartrate (Ambien) 5 mg HSPRN PRN ORAL Insomnia 10/22/17 21:00 10/24/17 20:59 Nikita Mobley M.D. Oct 23, 2017 17:09
[2017-10-23] MEDS ORDERED: Vancomycin 1 GM in D5W 275 ML IVPB SCH (17:15)
[2017-10-23] MEDS: Vancomycin 1250mg/D5W 250ml IVPB SCH (17:55)
[2017-10-23 20:00] VITALS: BP 100/65
[2017-10-24] VITALS: BP 98/56
[2017-10-24 04:00] VITALS: BP 97/52
[2017-10-24] MEDS: Piperacillin/Tazobactam 3.375 GM in D5W 110 ML IVPB SCH ×3 (05:29→22:04)
[2017-10-24] MEDS: Vancomycin 1250mg/D5W 250ml IVPB SCH ×2 (05:29→17:45)
[2017-10-24 06:07] LABS: HEMATOCRIT 41.6 % (42.0-52.0); HEMOGLOBIN 14.4 G/DL (14.2-18.0); MEAN CORPUSCULAR VOLUME 91 FL (80-99); PLATELET COUNT 94 K/UL (150-450); RED BLOOD COUNT 4.56 M/UL (4.70-6.10); RED CELL DISTRIBUTION WIDTH 11.4 % (11.6-14.8); WHITE BLOOD COUNT 6.3 K/UL (4.8-10.8)
[2017-10-24 06:19] LABS: ALANINE AMINOTRANSFERASE 38 U/L (12-78); ALBUMIN 2.7 G/DL (3.4-5.0); ALBUMIN/GLOBULIN RATIO 0.7 (1.0-2.7); ALKALINE PHOSPHATASE 314 U/L (46-116); ANION GAP 10 mmol/L (5-15); ASPARTATE AMINO TRANSFERASE 27 U/L (15-37); BILIRUBIN,TOTAL 2.1 MG/DL (0.2-1.0); BLOOD UREA NITROGEN 6 mg/dL (7-18); CALCIUM 7.9 MG/DL (8.5-10.1); CARBON DIOXIDE 24 MMOL/L (21-32); CHLORIDE 108 MMOL/L (98-107); CREATININE 0.6 MG/DL (0.55-1.30); PHOSPHORUS 1.7 MG/DL (2.5-4.9); POTASSIUM 2.8 MMOL/L (3.5-5.1); SODIUM 142 MMOL/L (136-145)
[2017-10-24 06:20] LABS: BILIRUBIN,DIRECT 0.9 MG/DL (0.0-0.3)
[2017-10-24 08:00] VITALS: BP 97/59
--- NOTE | 2017-10-24 08:03 | Infectious Diseases Prog Note ---
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 pneumo) - S/P new Gtube 10/22/17 Afebrile, no leukocytosis chronic resp failure s/p trach dysphagia s/p [facility] Plan: - Continue Zosyn #5 and Vancomycin #5 if remains febrile may switch to Meropenem -Monitor CBC/CMP, temperatures -aspiration precautions -wound care per hosp protocol -f/u abd US -Sx f/u Thank you for this consultation. Will continue to follow along with you. Subjective Allergies: Coded Allergies: SULFAMETHOXAZOLE (Verified Allergy, Unknown, 10/18/17) TRIMETHOPRIM (Verified Allergy, Unknown, 10/18/17) Subjective Patient awake and alert. Nonverbal but interactive Afebrile Objective Vital Signs Last 24 Hour Vital Signs Date Time Temp Pulse Resp B/P (MAP) Pulse Ox O2 Delivery O2 Flow Rate FiO2 10/24/17 07:20 90 15 28 10/24/17 05:30 77 15 28 10/24/17 04:00 28 10/24/17 04:00 Mechanical Ventilator 10/24/17 04:00 98 10/24/17 04:00 98.5 86 20 97/52 (67) 99 98.5 10/24/17 03:30 92 19 28 10/24/17 02:41 107 15 Mechanical Ventilator 28 10/24/17 01:21 100 17 28 10/24/17 00:00 Mechanical Ventilator 10/24/17 00:00 100 10/24/17 00:00 99.1 100 19 98/56 (70) 100 99.1 10/24/17 00:00 28 10/23/17 23:30 102 18 28 10/23/17 21:30 98 17 28 10/23/17 20:00 108 10/23/17 20:00 100.0 107 18 100/65 (77) 100 100.0 10/23/17 20:00 Mechanical Ventilator 10/23/17 20:00 28 10/23/17 19:30 105 20 28 10/23/17 16:50 99 18 28 10/23/17 16:00 100.1 90 22 90/52 (65) 100 100.1 10/23/17 16:00 96 10/23/17 16:00 Mechanical Ventilator 10/23/17 16:00 28 10/23/17 14:50 92 21 28 10/23/17 12:49 100.2 10/23/17 12:48 99 18 28 10/23/17 12:19 101.0 10/23/17 12:00 94 10/23/17 12:00 28 10/23/17 12:00 Mechanical Ventilator 10/23/17 11:37 101.0 101 17 91/49 (63) 97 101.0 10/23/17 10:46 98 20 28 10/23/17 09:22 101 15 28 10/23/17 08:23 99 Height (Feet): 5 Height (Inches): 9.00 Weight (Pounds): 179 Objective General Appearance: no apparent distress, alert - responds with eyes and mouths words. HEENT: NCAT, MMM, anicteric, Trached Respiratory/Chest: lungs clear, no respiratory distress Cardiovascular/Chest: normal peripheral pulses, normal rate, Abdomen: normal bowel sounds, non tender, soft, other - G tube site with dressing no purulent drainage Skin Exam: warm/dry Neurologic: abnormal gait - bedridden , other - awake, responds with eyes and nodding , quadriplegia Musculoskeletal: atrophy - BLE Laboratory Tests Test 10/24/17 05:25 White Blood Count 6.3 K/UL (4.8-10.8) Red Blood Count 4.56 M/UL (4.70-6.10) L Hemoglobin 14.4 G/DL (14.2-18.0) Hematocrit 41.6 % (42.0-52.0) L Mean Corpuscular Volume 91 FL (80-99) Mean Corpuscular Hemoglobin 31.5 PG (27.0-31.0) H Mean Corpuscular Hemoglobin Concent 34.6 G/DL (32.0-36.0) Red Cell Distribution Width 11.4 % (11.6-14.8) L Platelet Count 94 K/UL (150-450) L Mean Platelet Volume 7.4 FL (6.5-10.1) Neutrophils (%) (Auto) % (45.0-75.0) Lymphocytes (%) (Auto) % (20.0-45.0) Monocytes (%) (Auto) % (1.0-10.0) Eosinophils (%) (Auto) % (0.0-3.0) Basophils (%) (Auto) % (0.0-2.0) Neutrophils % (Manual) Pending Lymphocytes % (Manual) Pending Platelet Estimate Pending Platelet Morphology Pending Sodium Level 142 MMOL/L (136-145) Potassium Level 2.8 MMOL/L (3.5-5.1) L Chloride Level 108 MMOL/L (98-107) H Carbon Dioxide Level 24 MMOL/L (21-32) Anion Gap 10 mmol/L (5-15) Blood Urea Nitrogen 6 mg/dL (7-18) L Creatinine 0.6 MG/DL (0.55-1.30) Estimat Glomerular Filtration Rate > 60 mL/min (>60) Glucose Level 100 MG/DL (74-106) # Calcium Level 7.9 MG/DL (8.5-10.1) L Phosphorus Level 1.7 MG/DL (2.5-4.9) L Magnesium Level 1.9 MG/DL (1.8-2.4) Total Bilirubin 2.1 MG/DL (0.2-1.0) H Direct Bilirubin 0.9 MG/DL (0.0-0.3) H Aspartate Amino Transf (AST/SGOT) 27 U/L (15-37) Alanine Aminotransferase (ALT/SGPT) 38 U/L (12-78) Alkaline Phosphatase 314 U/L (46-116) H Total Protein 6.6 G/DL (6.4-8.2) Albumin 2.7 G/DL (3.4-5.0) L Globulin 3.9 g/dL Albumin/Globulin Ratio 0.7 (1.0-2.7) L Current Medications Medications (Trade) Dose Ordered Sig/Vicenta Route PRN Reason Start Time Stop Time Status Last Admin Dose Admin Acetaminophen (Tylenol) 650 mg Q4H PRN NG T>100.5 10/22/17 17:00 11/19/17 16:59 10/23/17 12:19 Acetaminophen/ Hydrocodone Bitart ([place] 5/325) 1 tab Q6H PRN ORAL PAIN 4-10 10/22/17 17:15 10/25/17 05:14 Artificial Tears (Akwa-Tears) 1 drop Q6H PRN BOTH EYES dry eyes 10/22/17 17:15 11/17/17 05:14 Dextrose/Sodium Chloride 1,000 ml @ 50 mls/hr Q20H IV 10/22/17 17:30 11/16/17 17:29 10/23/17 12:20 Heparin Sodium (Porcine) (Heparin 5000 units/ml) 5,000 units EVERY 12 HOURS SUBQ 10/23/17 09:00 11/22/17 08:59 10/23/17 22:06 Levetiracetam 100 ml @ 400 mls/hr Q12HR IVPB 10/22/17 21:00 11/18/17 09:59 10/23/17 22:05 Lorazepam (Ativan 2mg/ml 1ml) 2 mg Q2H PRN IV For Seizures 10/22/17 17:00 10/26/17 16:59 Ondansetron HCl (Zofran) 4 mg Q6H PRN IVP Nausea & Vomiting 10/22/17 17:00 11/16/17 16:59 Pantoprazole (Protonix) 40 mg DAILY IVP 10/23/17 09:00 11/19/17 12:35 10/23/17 09:27 Piperacillin Sod/ Tazobactam Sod 3.375 gm/Dextrose 110 ml @ 27.5 mls/hr EVERY 8 HOURS IVPB 10/22/17 22:00 10/27/17 13:59 10/24/17 05:29 Potassium Chloride (K-Dur) 40 meq EVERY 4 HOURS ORAL 10/24/17 09:00 11/23/17 08:59 UNV Vancomycin HCl (Vanco rx to dose) 1 ea DAILY PRN [facility] [place] pharmacy to dose 10/23/17 17:15 11/22/17 17:14 Vancomycin HCl/ Dextrose 250 ml @ 166.667 mls/hr Q12H IVPB 10/23/17 18:00 10/28/17 17:59 10/24/17 05:29 Zolpidem Tartrate (Ambien) 5 mg HSPRN PRN ORAL Insomnia 10/22/17 21:00 10/24/17 20:59 Nikita Mobley M.D. Oct 24, 2017 08:03
[2017-10-24] MEDS: Heparin 5000 units/ml inj SUBQ SCH ×2 (08:46→20:28)
--- NOTE | 2017-10-24 09:09 | General Progress Note ---
Assessment/Plan Status: stable Assessment/Plan 1. Leukocytosis, secondary to underlying dehydration, to closely monitor for improvement. Also 2/2 recent intubation --> WBC normalized. --> 10/24: wbc 6.3 2. Hyperproteinemia. Obtain serum protein electrophoresis. 3. G-tube malfunction, referred to gastrointestinal team. 4. Chronic respiratory failure, status post intubation/trach. 5. Erythema around the G-tube site with potential cellulitis, has been seen by ID Service. --> Cultures: Gram + cocci --> Pt on IV abx. 6. Seizure disorder - to see neuro friday for eval --> ativan prn and keprra --> appreciate neuro recs Subjective Date patient seen: Oct 24, 2017 ROS Limited/Unobtainable: Yes Allergies: Coded Allergies: SULFAMETHOXAZOLE (Verified Allergy, Unknown, 10/18/17) TRIMETHOPRIM (Verified Allergy, Unknown, 10/18/17) All Systems: reviewed and negative except above Subjective Pt awake and alert. No acute events. Objective Last 24 Hour Vital Signs Date Time Temp Pulse Resp B/P (MAP) Pulse Ox O2 Delivery O2 Flow Rate FiO2 10/24/17 08:00 98.0 83 19 97/59 (72) 100 98.0 10/24/17 07:20 90 15 28 10/24/17 05:30 77 15 28 10/24/17 04:00 28 10/24/17 04:00 Mechanical Ventilator 10/24/17 04:00 98 10/24/17 04:00 98.5 86 20 97/52 (67) 99 98.5 10/24/17 03:30 92 19 28 10/24/17 02:41 107 15 Mechanical Ventilator 28 10/24/17 01:21 100 17 28 10/24/17 00:00 Mechanical Ventilator 10/24/17 00:00 100 10/24/17 00:00 99.1 100 19 98/56 (70) 100 99.1 10/24/17 00:00 28 10/23/17 23:30 102 18 28 10/23/17 21:30 98 17 28 10/23/17 20:00 108 10/23/17 20:00 100.0 107 18 100/65 (77) 100 100.0 10/23/17 20:00 Mechanical Ventilator 10/23/17 20:00 28 10/23/17 19:30 105 20 28 10/23/17 16:50 99 18 28 10/23/17 16:00 100.1 90 22 90/52 (65) 100 100.1 10/23/17 16:00 96 10/23/17 16:00 Mechanical Ventilator 10/23/17 16:00 28 10/23/17 14:50 92 21 28 10/23/17 12:49 100.2 10/23/17 12:48 99 18 28 10/23/17 12:19 101.0 10/23/17 12:00 94 10/23/17 12:00 28 10/23/17 12:00 Mechanical Ventilator 10/23/17 11:37 101.0 101 17 91/49 (63) 97 101.0 10/23/17 10:46 98 20 28 10/23/17 09:22 101 15 28 Intake and Output 10/23/17 10/24/17 19:00 07:00 Intake Total 1696.667 ml 1350.0 ml Output Total 450 ml Balance 1696.667 ml 900.0 ml Intake Oral 580 ml 540 ml Free Water 300 ml 150 ml IV Total 816.667 ml 660.0 ml Output Urine Total 450 ml # Bowel Movements 3 5 Laboratory Tests 10/24/17 05:25: White Blood Count 6.3, Red Blood Count 4.56L, Hemoglobin 14.4, Hematocrit 41.6L , Mean Corpuscular Volume 91, Mean Corpuscular Hemoglobin 31.5H, Mean Corpuscular Hemoglobin Concent 34.6, Red Cell Distribution Width 11.4L, Platelet Count 94L, Mean Platelet Volume 7.4, Neutrophils (%) (Auto) , Lymphocytes (%) (Auto) , Monocytes (%) (Auto) , Eosinophils (%) (Auto) , Basophils (%) (Auto) , Differential Total Cells Counted 100, Neutrophils % ( Manual) 71, Lymphocytes % (Manual) 21, Monocytes % (Manual) 4, Eosinophils % ( Manual) 4H, Basophils % (Manual) 0, Band Neutrophils 0, Platelet Estimate DecreasedL, Platelet Morphology Normal, Red Blood Cell Morphology Normal, Sodium Level 142, Potassium Level 2.8L, Chloride Level 108H, Carbon Dioxide Level 24, Anion Gap 10, Blood Urea Nitrogen 6L, Creatinine 0.6, Estimat Glomerular Filtration Rate > 60, Glucose Level 100#, Calcium Level 7.9L, Phosphorus Level 1.7L, Magnesium Level 1.9, Total Bilirubin 2.1H, Direct Bilirubin 0.9H, Aspartate Amino Transf (AST/SGOT) 27, Alanine Aminotransferase ( ALT/SGPT) 38, Alkaline Phosphatase 314H, Total Protein 6.6, Albumin 2.7L, Globulin 3.9, Albumin/Globulin Ratio 0.7L Height (Feet): 5 Height (Inches): 9.00 Weight (Pounds): 179 General Appearance: no apparent distress EENT: PERRL/EOMI Neck: normal alignment Cardiovascular: normal peripheral pulses Respiratory/Chest: no respiratory distress Abdomen: soft Reid Grajeda MD Oct 24, 2017 09:09
[2017-10-24] MEDS: levETIRAcetam 500mg/NS100ml 100 ML IVPB SCH ×2 (09:17→20:27)
[2017-10-24] MEDS: Pantoprazole Inj IVP SCH (09:17)
[2017-10-24] MEDS: D5 1/2NS 1,000 ML IV SCH (09:24)
[2017-10-24] MEDS ORDERED: NS 275ml ONE (09:43)
[2017-10-24] MEDS ORDERED: Tubing Blood Filter IV ONE (09:43)
[2017-10-24] MEDS ORDERED: Sterile Water Irrig 1000ml IRRIG ONE (09:43)
[2017-10-24] MEDS ORDERED: 1/2 NS 1000ml IV ONE (09:43)
--- NOTE | 2017-10-24 10:46 | Pulmonolgy Critical Care Note ---
Critical Care - Asmt/Plan Problems: (1) Sepsis (2) Chronic respiratory failure (3) Gastrostomy site leak (4) Seizures (5) Quadriplegia Assessment/Plan: got J-tube yesterday. 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 - Objective Last 24 Hour Vital Signs Date Time Temp Pulse Resp B/P (MAP) Pulse Ox O2 Delivery O2 Flow Rate FiO2 10/24/17 10:41 89 16 28 10/24/17 09:17 84 15 28 10/24/17 08:00 98.0 83 19 97/59 (72) 100 98.0 10/24/17 08:00 28 10/24/17 08:00 Mechanical Ventilator 10/24/17 07:20 90 15 28 10/24/17 05:30 77 15 28 10/24/17 04:00 28 10/24/17 04:00 Mechanical Ventilator 10/24/17 04:00 98 10/24/17 04:00 98.5 86 20 97/52 (67) 99 98.5 10/24/17 03:30 92 19 28 10/24/17 02:41 107 15 Mechanical Ventilator 28 10/24/17 01:21 100 17 28 10/24/17 00:00 Mechanical Ventilator 10/24/17 00:00 100 10/24/17 00:00 99.1 100 19 98/56 (70) 100 99.1 10/24/17 00:00 28 10/23/17 23:30 102 18 28 10/23/17 21:30 98 17 28 10/23/17 20:00 108 10/23/17 20:00 100.0 107 18 100/65 (77) 100 100.0 10/23/17 20:00 Mechanical Ventilator 10/23/17 20:00 28 10/23/17 19:30 105 20 28 10/23/17 16:50 99 18 28 10/23/17 16:00 100.1 90 22 90/52 (65) 100 100.1 10/23/17 16:00 96 10/23/17 16:00 Mechanical Ventilator 10/23/17 16:00 28 10/23/17 14:50 92 21 28 10/23/17 12:49 100.2 10/23/17 12:48 99 18 28 10/23/17 12:19 101.0 10/23/17 12:00 94 10/23/17 12:00 28 10/23/17 12:00 Mechanical Ventilator 10/23/17 11:37 101.0 101 17 91/49 (63) 97 101.0 Status: awake Condition: critical HEENT: atraumatic Lungs: clear, chest wall tender Heart: HR/BP unstable, regular Abdomen: non-tender, feeding tube Extremities: edema Critical Care - Subjective ROS Limited/Unobtainable: No Condition: critical EKG Rhythm: Sinus Rhythm FI02: 28 Vent Support Breath Rate: 15 Vent Support Mode: AC Vent Tidal Volume: 500 Sputum Amount: Moderate PEEP: 0.0 PIP: 24 I&O: Intake and Output 10/23/17 10/24/17 19:00 07:00 Intake Total 1696.667 ml 1350.0 ml Output Total 450 ml Balance 1696.667 ml 900.0 ml Intake Oral 580 ml 540 ml Free Water 300 ml 150 ml IV Total 816.667 ml 660.0 ml Output Urine Total 450 ml # Bowel Movements 3 5 Labs: Laboratory Tests Test 10/24/17 05:25 White Blood Count 6.3 K/UL (4.8-10.8) Red Blood Count 4.56 M/UL (4.70-6.10) L Hemoglobin 14.4 G/DL (14.2-18.0) Hematocrit 41.6 % (42.0-52.0) L Mean Corpuscular Volume 91 FL (80-99) Mean Corpuscular Hemoglobin 31.5 PG (27.0-31.0) H Mean Corpuscular Hemoglobin Concent 34.6 G/DL (32.0-36.0) Red Cell Distribution Width 11.4 % (11.6-14.8) L Platelet Count 94 K/UL (150-450) L Mean Platelet Volume 7.4 FL (6.5-10.1) Neutrophils (%) (Auto) % (45.0-75.0) Lymphocytes (%) (Auto) % (20.0-45.0) Monocytes (%) (Auto) % (1.0-10.0) Eosinophils (%) (Auto) % (0.0-3.0) Basophils (%) (Auto) % (0.0-2.0) Differential Total Cells Counted 100 Neutrophils % (Manual) 71 % (45-75) Lymphocytes % (Manual) 21 % (20-45) Monocytes % (Manual) 4 % (1-10) Eosinophils % (Manual) 4 % (0-3) H Basophils % (Manual) 0 % (0-2) Band Neutrophils 0 % (0-8) Platelet Estimate Decreased L Platelet Morphology Normal Red Blood Cell Morphology Normal Sodium Level 142 MMOL/L (136-145) Potassium Level 2.8 MMOL/L (3.5-5.1) L Chloride Level 108 MMOL/L (98-107) H Carbon Dioxide Level 24 MMOL/L (21-32) Anion Gap 10 mmol/L (5-15) Blood Urea Nitrogen 6 mg/dL (7-18) L Creatinine 0.6 MG/DL (0.55-1.30) Estimat Glomerular Filtration Rate > 60 mL/min (>60) Glucose Level 100 MG/DL (74-106) # Calcium Level 7.9 MG/DL (8.5-10.1) L Phosphorus Level 1.7 MG/DL (2.5-4.9) L Magnesium Level 1.9 MG/DL (1.8-2.4) Total Bilirubin 2.1 MG/DL (0.2-1.0) H Direct Bilirubin 0.9 MG/DL (0.0-0.3) H Aspartate Amino Transf (AST/SGOT) 27 U/L (15-37) Alanine Aminotransferase (ALT/SGPT) 38 U/L (12-78) Alkaline Phosphatase 314 U/L (46-116) H Total Protein 6.6 G/DL (6.4-8.2) Albumin 2.7 G/DL (3.4-5.0) L Globulin 3.9 g/dL Albumin/Globulin Ratio 0.7 (1.0-2.7) L Mellissa Garcia MD Oct 24, 2017 10:46
--- NOTE | 2017-10-24 10:51 | General Surgery Progress Note ---
General Surgery-Progress Note Subjective Additional Comments doing well. improved. cellulitis much better. g tube functional with minimal leak Objective Last 24 Hour Vital Signs Date Time Temp Pulse Resp B/P (MAP) Pulse Ox O2 Delivery O2 Flow Rate FiO2 10/24/17 10:41 89 16 28 10/24/17 09:17 84 15 28 10/24/17 08:00 98.0 83 19 97/59 (72) 100 98.0 10/24/17 08:00 28 10/24/17 08:00 Mechanical Ventilator 10/24/17 07:20 90 15 28 10/24/17 05:30 77 15 28 10/24/17 04:00 28 10/24/17 04:00 Mechanical Ventilator 10/24/17 04:00 98 10/24/17 04:00 98.5 86 20 97/52 (67) 99 98.5 10/24/17 03:30 92 19 28 10/24/17 02:41 107 15 Mechanical Ventilator 28 10/24/17 01:21 100 17 28 10/24/17 00:00 Mechanical Ventilator 10/24/17 00:00 100 10/24/17 00:00 99.1 100 19 98/56 (70) 100 99.1 10/24/17 00:00 28 10/23/17 23:30 102 18 28 10/23/17 21:30 98 17 28 10/23/17 20:00 108 10/23/17 20:00 100.0 107 18 100/65 (77) 100 100.0 10/23/17 20:00 Mechanical Ventilator 10/23/17 20:00 28 10/23/17 19:30 105 20 28 10/23/17 16:50 99 18 28 10/23/17 16:00 100.1 90 22 90/52 (65) 100 100.1 10/23/17 16:00 96 10/23/17 16:00 Mechanical Ventilator 10/23/17 16:00 28 10/23/17 14:50 92 21 28 10/23/17 12:49 100.2 10/23/17 12:48 99 18 28 10/23/17 12:19 101.0 10/23/17 12:00 94 10/23/17 12:00 28 10/23/17 12:00 Mechanical Ventilator 10/23/17 11:37 101.0 101 17 91/49 (63) 97 101.0 10/23/17 10:46 98 20 28 I&O Intake and Output 10/23/17 10/24/17 19:00 07:00 Intake Total 1696.667 ml 1350.0 ml Output Total 450 ml Balance 1696.667 ml 900.0 ml Intake Oral 580 ml 540 ml Free Water 300 ml 150 ml IV Total 816.667 ml 660.0 ml Output Urine Total 450 ml # Bowel Movements 3 5 Dressing: saturated Wound: clean Drains: other Cardiovascular: RSR Respiratory: clear Abdomen: non-tender Extremities: other Laboratory Tests Test 10/24/17 05:25 White Blood Count 6.3 K/UL (4.8-10.8) Red Blood Count 4.56 M/UL (4.70-6.10) L Hemoglobin 14.4 G/DL (14.2-18.0) Hematocrit 41.6 % (42.0-52.0) L Mean Corpuscular Volume 91 FL (80-99) Mean Corpuscular Hemoglobin 31.5 PG (27.0-31.0) H Mean Corpuscular Hemoglobin Concent 34.6 G/DL (32.0-36.0) Red Cell Distribution Width 11.4 % (11.6-14.8) L Platelet Count 94 K/UL (150-450) L Mean Platelet Volume 7.4 FL (6.5-10.1) Neutrophils (%) (Auto) % (45.0-75.0) Lymphocytes (%) (Auto) % (20.0-45.0) Monocytes (%) (Auto) % (1.0-10.0) Eosinophils (%) (Auto) % (0.0-3.0) Basophils (%) (Auto) % (0.0-2.0) Differential Total Cells Counted 100 Neutrophils % (Manual) 71 % (45-75) Lymphocytes % (Manual) 21 % (20-45) Monocytes % (Manual) 4 % (1-10) Eosinophils % (Manual) 4 % (0-3) H Basophils % (Manual) 0 % (0-2) Band Neutrophils 0 % (0-8) Platelet Estimate Decreased L Platelet Morphology Normal Red Blood Cell Morphology Normal Sodium Level 142 MMOL/L (136-145) Potassium Level 2.8 MMOL/L (3.5-5.1) L Chloride Level 108 MMOL/L (98-107) H Carbon Dioxide Level 24 MMOL/L (21-32) Anion Gap 10 mmol/L (5-15) Blood Urea Nitrogen 6 mg/dL (7-18) L Creatinine 0.6 MG/DL (0.55-1.30) Estimat Glomerular Filtration Rate > 60 mL/min (>60) Glucose Level 100 MG/DL (74-106) # Calcium Level 7.9 MG/DL (8.5-10.1) L Phosphorus Level 1.7 MG/DL (2.5-4.9) L Magnesium Level 1.9 MG/DL (1.8-2.4) Total Bilirubin 2.1 MG/DL (0.2-1.0) H Direct Bilirubin 0.9 MG/DL (0.0-0.3) H Aspartate Amino Transf (AST/SGOT) 27 U/L (15-37) Alanine Aminotransferase (ALT/SGPT) 38 U/L (12-78) Alkaline Phosphatase 314 U/L (46-116) H Total Protein 6.6 G/DL (6.4-8.2) Albumin 2.7 G/DL (3.4-5.0) L Globulin 3.9 g/dL Albumin/Globulin Ratio 0.7 (1.0-2.7) L Plan Problems: (1) Malfunction of gastrostomy tube Assessment & Plan: large abdominal wound from prior with g tube site open and leaking. ulceration medial and inferior noted. erythema and edema noted. no abscess cellulitis of prior g tube site large and persistent leakage of gastric contents causing ulceration elevated liver function tests ESR nml, CRP mildly elevated. no acute surgical intervention necessary skin protectant keep site clean dressings s/p g tube placement thank you for this consultation. (2) Gastrostomy site leak Robert Gomez Oct 24, 2017 10:51
--- NOTE | 2017-10-24 11:17 | GI Progress Note ---
Assessment/Plan Problems: (1) Malfunction of gastrostomy tube ICD Codes: K94.23 - Gastrostomy malfunction SNOMED: 722053253 (2) Sepsis ICD Codes: A41.9 - Sepsis, unspecified organism SNOMED: 46408106 (3) Gastrostomy site leak ICD Codes: K94.23 - Gastrostomy malfunction SNOMED: 741273805 (4) Seizures ICD Codes: R56.9 - Unspecified convulsions SNOMED: 63154613 Status: stable Status Narrative Discussed with Dr. Lehman. Assessment/Plan s/p J tube placement GT site cellulitis hepatitis panel negative no anemia supportive care GT site care TID, would care per surgical GTFs per RD electrolyte correction zofran prn abx per ID trend LFTs fu labs dc planning The patient was seen and examined at bedside and all new and available data was reviewed in the patients chart. I agree with the above findings, impression and plan. (Patient seen earlier today. Signature stamp does not reflect patient encounter time.). - Kvng Lehman MD Subjective Subjective limited Objective Last 24 Hour Vital Signs Date Time Temp Pulse Resp B/P (MAP) Pulse Ox O2 Delivery O2 Flow Rate FiO2 10/24/17 10:41 89 16 28 10/24/17 09:17 84 15 28 10/24/17 08:00 98.0 83 19 97/59 (72) 100 98.0 10/24/17 08:00 28 10/24/17 08:00 Mechanical Ventilator 10/24/17 07:20 90 15 28 10/24/17 05:30 77 15 28 10/24/17 04:00 28 10/24/17 04:00 Mechanical Ventilator 10/24/17 04:00 98 10/24/17 04:00 98.5 86 20 97/52 (67) 99 98.5 10/24/17 03:30 92 19 28 10/24/17 02:41 107 15 Mechanical Ventilator 28 10/24/17 01:21 100 17 28 10/24/17 00:00 Mechanical Ventilator 10/24/17 00:00 100 10/24/17 00:00 99.1 100 19 98/56 (70) 100 99.1 10/24/17 00:00 28 10/23/17 23:30 102 18 28 10/23/17 21:30 98 17 28 10/23/17 20:00 108 10/23/17 20:00 100.0 107 18 100/65 (77) 100 100.0 10/23/17 20:00 Mechanical Ventilator 10/23/17 20:00 28 10/23/17 19:30 105 20 28 10/23/17 16:50 99 18 28 10/23/17 16:00 100.1 90 22 90/52 (65) 100 100.1 10/23/17 16:00 96 10/23/17 16:00 Mechanical Ventilator 10/23/17 16:00 28 10/23/17 14:50 92 21 28 10/23/17 12:49 100.2 10/23/17 12:48 99 18 28 10/23/17 12:19 101.0 10/23/17 12:00 94 10/23/17 12:00 28 10/23/17 12:00 Mechanical Ventilator 10/23/17 11:37 101.0 101 17 91/49 (63) 97 101.0 Intake and Output 10/23/17 10/24/17 19:00 07:00 Intake Total 1696.667 ml 1350.0 ml Output Total 450 ml Balance 1696.667 ml 900.0 ml Intake Oral 580 ml 540 ml Free Water 300 ml 150 ml IV Total 816.667 ml 660.0 ml Output Urine Total 450 ml # Bowel Movements 3 5 Laboratory Tests Test 10/24/17 05:25 White Blood Count 6.3 K/UL (4.8-10.8) Red Blood Count 4.56 M/UL (4.70-6.10) L Hemoglobin 14.4 G/DL (14.2-18.0) Hematocrit 41.6 % (42.0-52.0) L Mean Corpuscular Volume 91 FL (80-99) Mean Corpuscular Hemoglobin 31.5 PG (27.0-31.0) H Mean Corpuscular Hemoglobin Concent 34.6 G/DL (32.0-36.0) Red Cell Distribution Width 11.4 % (11.6-14.8) L Platelet Count 94 K/UL (150-450) L Mean Platelet Volume 7.4 FL (6.5-10.1) Neutrophils (%) (Auto) % (45.0-75.0) Lymphocytes (%) (Auto) % (20.0-45.0) Monocytes (%) (Auto) % (1.0-10.0) Eosinophils (%) (Auto) % (0.0-3.0) Basophils (%) (Auto) % (0.0-2.0) Differential Total Cells Counted 100 Neutrophils % (Manual) 71 % (45-75) Lymphocytes % (Manual) 21 % (20-45) Monocytes % (Manual) 4 % (1-10) Eosinophils % (Manual) 4 % (0-3) H Basophils % (Manual) 0 % (0-2) Band Neutrophils 0 % (0-8) Platelet Estimate Decreased L Platelet Morphology Normal Red Blood Cell Morphology Normal Sodium Level 142 MMOL/L (136-145) Potassium Level 2.8 MMOL/L (3.5-5.1) L Chloride Level 108 MMOL/L (98-107) H Carbon Dioxide Level 24 MMOL/L (21-32) Anion Gap 10 mmol/L (5-15) Blood Urea Nitrogen 6 mg/dL (7-18) L Creatinine 0.6 MG/DL (0.55-1.30) Estimat Glomerular Filtration Rate > 60 mL/min (>60) Glucose Level 100 MG/DL (74-106) # Calcium Level 7.9 MG/DL (8.5-10.1) L Phosphorus Level 1.7 MG/DL (2.5-4.9) L Magnesium Level 1.9 MG/DL (1.8-2.4) Total Bilirubin 2.1 MG/DL (0.2-1.0) H Direct Bilirubin 0.9 MG/DL (0.0-0.3) H Aspartate Amino Transf (AST/SGOT) 27 U/L (15-37) Alanine Aminotransferase (ALT/SGPT) 38 U/L (12-78) Alkaline Phosphatase 314 U/L (46-116) H Total Protein 6.6 G/DL (6.4-8.2) Albumin 2.7 G/DL (3.4-5.0) L Globulin 3.9 g/dL Albumin/Globulin Ratio 0.7 (1.0-2.7) L Height (Feet): 5 Height (Inches): 9.00 Weight (Pounds): 179 General Appearance: WD/WN, no apparent distress, alert Cardiovascular: normal rate Respiratory/Chest: normal breath sounds, no respiratory distress Abdominal Exam: normal bowel sounds, non tender, soft, other - J tube Extremities: non-tender Daisy Bernstein NP Oct 24, 2017 11:17
[2017-10-24 12:00] VITALS: BP 96/56
[2017-10-24 16:00] VITALS: BP 95/54
[2017-10-24 20:00] VITALS: BP 102/57
[2017-10-24] MEDS: Acetaminophen 650mg/20.3ml NG PRN (20:55)
[2017-10-25] VITALS: BP 92/52
[2017-10-25 04:00] VITALS: BP 96/61
[2017-10-25 04:19] LABS: BASOPHILS % (AUTO) 0.8 % (0.0-2.0); EOSINOPHILS % (AUTO) 2.3 % (0.0-3.0); HEMATOCRIT 43.4 % (42.0-52.0); LYMPHOCYTES % (AUTO) 30.2 % (20.0-45.0); MEAN CORPUSCULAR VOLUME 92 FL (80-99); MONOCYTES % (AUTO) 7.5 % (1.0-10.0); NEUTROPHILS % (AUTO) 59.2 % (45.0-75.0); PLATELET COUNT 127 K/UL (150-450); RED BLOOD COUNT 4.71 M/UL (4.70-6.10); RED CELL DISTRIBUTION WIDTH 11.8 % (11.6-14.8); WHITE BLOOD COUNT 7.1 K/UL (4.8-10.8)
[2017-10-25 04:35] LABS: PHOSPHORUS 1.8 MG/DL (2.5-4.9)
[2017-10-25 04:41] LABS: ALANINE AMINOTRANSFERASE 33 U/L (12-78); ALBUMIN 2.8 G/DL (3.4-5.0); ALBUMIN/GLOBULIN RATIO 0.7 (1.0-2.7); ALKALINE PHOSPHATASE 308 U/L (46-116); ANION GAP 12 mmol/L (5-15); ASPARTATE AMINO TRANSFERASE 27 U/L (15-37); BLOOD UREA NITROGEN 8 mg/dL (7-18); CALCIUM 8.1 MG/DL (8.5-10.1); CARBON DIOXIDE 23 MMOL/L (21-32); CHLORIDE 107 MMOL/L (98-107); CREATININE 0.7 MG/DL (0.55-1.30); POTASSIUM 3.2 MMOL/L (3.5-5.1); SODIUM 142 MMOL/L (136-145)
[2017-10-25 04:44] LABS: BILIRUBIN,DIRECT 0.9 MG/DL (0.0-0.3)
[2017-10-25] MEDS: D5 1/2NS 1,000 ML IV SCH (05:45)
[2017-10-25] MEDS: Piperacillin/Tazobactam 3.375 GM in D5W 110 ML IVPB SCH ×3 (06:18→21:25)
[2017-10-25] MEDS: Vancomycin 1gm/D5W 275ml IVPB SCH ×4 (06:19→18:13)
[2017-10-25 08:00] VITALS: BP 95/59
--- NOTE | 2017-10-25 08:29 | Pulmonolgy Critical Care Note ---
Critical Care - Asmt/Plan Problems: (1) Sepsis (2) Chronic respiratory failure (3) Gastrostomy site leak (4) Seizures (5) Quadriplegia Respiratory: monitor respiratory rate Cardiac: continue to monitor HR/BP Renal: F/U I&O Infectious Disease: check cultures Gastrointestinal: continue feedings/current rate Endocrine: monitor blood sugar, check TSH, check HgA1C Neurologic: PRN Morphine Prophylaxis: Protonix Disposition: keep in ICU Notes Reviewed: turner off, renal Discussed with: nurses Critical Care - Objective Last 24 Hour Vital Signs Date Time Temp Pulse Resp B/P (MAP) Pulse Ox O2 Delivery O2 Flow Rate FiO2 10/25/17 08:00 98.5 87 14 95/59 (71) 97 98.5 10/25/17 06:45 91 15 28 10/25/17 05:14 81 14 28 10/25/17 04:00 91 10/25/17 04:00 99.5 94 17 96/61 (73) 97 99.5 10/25/17 04:00 28 10/25/17 04:00 Mechanical Ventilator 10/25/17 03:17 96 18 28 10/25/17 01:07 101 15 28 10/25/17 00:00 88 10/25/17 00:00 28 10/25/17 00:00 99.5 95 18 92/52 (65) 97 99.5 10/25/17 00:00 Mechanical Ventilator 10/24/17 23:26 90 17 28 10/24/17 22:12 99.5 10/24/17 20:55 101.8 10/24/17 20:50 109 16 28 10/24/17 20:00 101.8 108 18 102/57 (72) 96 101.8 10/24/17 20:00 28 10/24/17 20:00 105 10/24/17 20:00 Mechanical Ventilator 10/24/17 19:20 106 17 28 10/24/17 17:29 101 15 28 10/24/17 16:00 Mechanical Ventilator 10/24/17 16:00 105 10/24/17 16:00 99.8 106 16 95/54 (68) 98 99.8 10/24/17 16:00 28 10/24/17 14:32 93 24 28 10/24/17 13:19 111 22 28 10/24/17 12:00 104 10/24/17 12:00 98.2 94 18 96/56 (69) 99 98.2 10/24/17 12:00 28 10/24/17 12:00 Mechanical Ventilator 10/24/17 10:41 89 16 28 10/24/17 09:17 84 15 28 Condition: critical Neck: full ROM Lungs: clear Heart: HR/BP stable Abdomen: soft, non-tender Extremities: no C/C/E Critical Care - Subjective ROS Limited/Unobtainable: Yes Condition: critical FI02: 28 Vent Support Breath Rate: 15 Vent Support Mode: AC Vent Tidal Volume: 500 Sputum Amount: Small PEEP: 0.0 PIP: 43 Tube Feeding Amount: 60 I&O: Intake and Output 10/24/17 10/25/17 19:00 07:00 Intake Total 1526.667 ml 1503.333 ml Output Total 650 ml 700 ml Balance 876.667 ml 803.333 ml Intake Oral 660 ml Free Water 250 ml IV Total 616.667 ml 843.333 ml Tube Feeding 660 ml Output Urine Total 650 ml 700 ml # Bowel Movements 5 2 Labs: Laboratory Tests Test 10/25/17 04:10 White Blood Count 7.1 K/UL (4.8-10.8) Red Blood Count 4.71 M/UL (4.70-6.10) Hemoglobin 15.0 G/DL (14.2-18.0) Hematocrit 43.4 % (42.0-52.0) Mean Corpuscular Volume 92 FL (80-99) Mean Corpuscular Hemoglobin 31.8 PG (27.0-31.0) H Mean Corpuscular Hemoglobin Concent 34.5 G/DL (32.0-36.0) Red Cell Distribution Width 11.8 % (11.6-14.8) Platelet Count 127 K/UL (150-450) L Mean Platelet Volume 7.3 FL (6.5-10.1) Neutrophils (%) (Auto) 59.2 % (45.0-75.0) Lymphocytes (%) (Auto) 30.2 % (20.0-45.0) Monocytes (%) (Auto) 7.5 % (1.0-10.0) Eosinophils (%) (Auto) 2.3 % (0.0-3.0) Basophils (%) (Auto) 0.8 % (0.0-2.0) Erythrocyte Sedimentation Rate 60 MM/HR (0-20) H Sodium Level 142 MMOL/L (136-145) Potassium Level 3.2 MMOL/L (3.5-5.1) L Chloride Level 107 MMOL/L (98-107) Carbon Dioxide Level 23 MMOL/L (21-32) Anion Gap 12 mmol/L (5-15) Blood Urea Nitrogen 8 mg/dL (7-18) Creatinine 0.7 MG/DL (0.55-1.30) Estimat Glomerular Filtration Rate > 60 mL/min (>60) Glucose Level 106 MG/DL (74-106) Calcium Level 8.1 MG/DL (8.5-10.1) L Phosphorus Level 1.8 MG/DL (2.5-4.9) L Magnesium Level 1.8 MG/DL (1.8-2.4) Total Bilirubin 2.0 MG/DL (0.2-1.0) H Direct Bilirubin 0.9 MG/DL (0.0-0.3) H Aspartate Amino Transf (AST/SGOT) 27 U/L (15-37) Alanine Aminotransferase (ALT/SGPT) 33 U/L (12-78) Alkaline Phosphatase 308 U/L (46-116) H C-Reactive Protein, Quantitative 5.3 mg/dL (0.00-0.90) H Total Protein 7.0 G/DL (6.4-8.2) Albumin 2.8 G/DL (3.4-5.0) L Globulin 4.2 g/dL Albumin/Globulin Ratio 0.7 (1.0-2.7) L Vancomycin Level Trough 18.0 ug/mL (5.0-12.0) H Mellissa Garcia MD Oct 25, 2017 08:29
[2017-10-25] MEDS: Pantoprazole Inj IVP SCH (09:01)
[2017-10-25] MEDS: levETIRAcetam 500mg/NS100ml 100 ML IVPB SCH ×2 (09:01→20:43)
[2017-10-25] MEDS: Heparin 5000 units/ml inj SUBQ SCH ×2 (09:02→20:45)
--- NOTE | 2017-10-25 09:56 | General Progress Note ---
Assessment/Plan Assessment/Plan s/p J tube placement GT site cellulitis hepatitis panel negative no anemia supportive care GT site care TID, would care per surgical GTFs per RD electrolyte correction zofran prn abx per ID trend LFTs fu labs dc planning Subjective ROS Limited/Unobtainable: No Allergies: Coded Allergies: SULFAMETHOXAZOLE (Verified Allergy, Unknown, 10/18/17) TRIMETHOPRIM (Verified Allergy, Unknown, 10/18/17) Objective Last 24 Hour Vital Signs Date Time Temp Pulse Resp B/P (MAP) Pulse Ox O2 Delivery O2 Flow Rate FiO2 10/25/17 09:15 85 15 28 10/25/17 08:00 28 10/25/17 08:00 98.5 87 14 95/59 (71) 97 98.5 10/25/17 06:45 91 15 28 10/25/17 05:14 81 14 28 10/25/17 04:00 91 10/25/17 04:00 99.5 94 17 96/61 (73) 97 99.5 10/25/17 04:00 28 10/25/17 04:00 Mechanical Ventilator 10/25/17 03:17 96 18 28 10/25/17 01:07 101 15 28 10/25/17 00:00 88 10/25/17 00:00 28 10/25/17 00:00 99.5 95 18 92/52 (65) 97 99.5 10/25/17 00:00 Mechanical Ventilator 10/24/17 23:26 90 17 28 10/24/17 22:12 99.5 10/24/17 20:55 101.8 10/24/17 20:50 109 16 28 10/24/17 20:00 101.8 108 18 102/57 (72) 96 101.8 10/24/17 20:00 28 10/24/17 20:00 105 10/24/17 20:00 Mechanical Ventilator 10/24/17 19:20 106 17 28 10/24/17 17:29 101 15 28 10/24/17 16:00 Mechanical Ventilator 10/24/17 16:00 105 10/24/17 16:00 99.8 106 16 95/54 (68) 98 99.8 10/24/17 16:00 28 10/24/17 14:32 93 24 28 10/24/17 13:19 111 22 28 10/24/17 12:00 104 10/24/17 12:00 98.2 94 18 96/56 (69) 99 98.2 10/24/17 12:00 28 10/24/17 12:00 Mechanical Ventilator 10/24/17 10:41 89 16 28 Intake and Output 10/24/17 10/25/17 19:00 07:00 Intake Total 1526.667 ml 1503.333 ml Output Total 650 ml 700 ml Balance 876.667 ml 803.333 ml Intake Oral 660 ml Free Water 250 ml IV Total 616.667 ml 843.333 ml Tube Feeding 660 ml Output Urine Total 650 ml 700 ml # Bowel Movements 5 2 Laboratory Tests 10/25/17 04:10: White Blood Count 7.1, Red Blood Count 4.71, Hemoglobin 15.0, Hematocrit 43.4, Mean Corpuscular Volume 92, Mean Corpuscular Hemoglobin 31.8H, Mean Corpuscular Hemoglobin Concent 34.5, Red Cell Distribution Width 11.8, Platelet Count 127L, Mean Platelet Volume 7.3, Neutrophils (%) (Auto) 59.2, Lymphocytes (%) (Auto) 30.2, Monocytes (%) (Auto) 7.5, Eosinophils (%) (Auto) 2.3, Basophils (%) (Auto ) 0.8, Erythrocyte Sedimentation Rate 60H, Sodium Level 142, Potassium Level 3.2L, Chloride Level 107, Carbon Dioxide Level 23, Anion Gap 12, Blood Urea Nitrogen 8, Creatinine 0.7, Estimat Glomerular Filtration Rate > 60, Glucose Level 106, Calcium Level 8.1L, Phosphorus Level 1.8L, Magnesium Level 1.8, Total Bilirubin 2.0H, Direct Bilirubin 0.9H, Aspartate Amino Transf (AST/SGOT) 27, Alanine Aminotransferase (ALT/SGPT) 33, Alkaline Phosphatase 308H, C- Reactive Protein, Quantitative 5.3H, Total Protein 7.0, Albumin 2.8L, Globulin 4.2, Albumin/Globulin Ratio 0.7L, Vancomycin Level Trough 18.0H Height (Feet): 5 Height (Inches): 9.00 Weight (Pounds): 179 General Appearance: no apparent distress EENT: normal ENT inspection Neck: supple Cardiovascular: normal rate Respiratory/Chest: decreased breath sounds Abdomen: normal bowel sounds, non tender, soft Extremities: non-tender Vosoghi,Kvng MD Oct 25, 2017 09:56
[2017-10-25] MEDS ORDERED: Potassium Chloride 40 MEQ in Sodium Chloride 500ML 550 ML IVPB ONE (10:00)
[2017-10-25] MEDS ORDERED: D5 1/2NS 1000ml IV ONE (10:51)
[2017-10-25 12:00] VITALS: BP 103/66
--- NOTE | 2017-10-25 12:46 | Infectious Diseases Prog Note ---
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 pneumo) - S/P new Gtube 10/22/17 Afebrile No leukocytosis Ro Probable Cholecystitis Elev Alk Ph Abd US : Nonmobile echogenic foci within the gallbladder lumen, may reflect nonmobile gallstones versus polyps Thickened edematous gallbladder wall. Possibilities include acute cholecystitis, chronic resp failure s/p trach dysphagia s/p GT SNF resident Plan: - Continue Zosyn # 6/10 and Vancomycin # 6/10 if remains febrile may switch to Meropenem -Monitor CBC/CMP, temperatures -aspiration precautions -wound care per hosp protocol -Sx f/u - HIDA Scan Subjective Allergies: Coded Allergies: SULFAMETHOXAZOLE (Verified Allergy, Unknown, 10/18/17) TRIMETHOPRIM (Verified Allergy, Unknown, 10/18/17) Subjective Fever Objective Vital Signs Last 24 Hour Vital Signs Date Time Temp Pulse Resp B/P (MAP) Pulse Ox O2 Delivery O2 Flow Rate FiO2 10/25/17 12:00 98.7 81 14 103/66 (78) 97 98.7 10/25/17 12:00 Mechanical Ventilator 10/25/17 12:00 28 10/25/17 11:09 87 16 28 10/25/17 09:15 85 15 28 10/25/17 08:00 28 10/25/17 08:00 Mechanical Ventilator 10/25/17 08:00 66 10/25/17 08:00 98.5 87 14 95/59 (71) 97 98.5 10/25/17 06:45 91 15 28 10/25/17 05:14 81 14 28 10/25/17 04:00 91 10/25/17 04:00 99.5 94 17 96/61 (73) 97 99.5 10/25/17 04:00 28 10/25/17 04:00 Mechanical Ventilator 10/25/17 03:17 96 18 28 10/25/17 01:07 101 15 28 10/25/17 00:00 88 10/25/17 00:00 28 10/25/17 00:00 99.5 95 18 92/52 (65) 97 99.5 10/25/17 00:00 Mechanical Ventilator 10/24/17 23:26 90 17 28 10/24/17 22:12 99.5 10/24/17 20:55 101.8 10/24/17 20:50 109 16 28 10/24/17 20:00 101.8 108 18 102/57 (72) 96 101.8 10/24/17 20:00 28 10/24/17 20:00 105 10/24/17 20:00 Mechanical Ventilator 10/24/17 19:20 106 17 28 10/24/17 17:29 101 15 28 10/24/17 16:00 Mechanical Ventilator 10/24/17 16:00 105 10/24/17 16:00 99.8 106 16 95/54 (68) 98 99.8 10/24/17 16:00 28 10/24/17 14:32 93 24 28 10/24/17 13:19 111 22 28 Height (Feet): 5 Height (Inches): 9.00 Weight (Pounds): 179 HEENT: atraumatic Respiratory/Chest: normal breath sounds Cardiovascular: regular rhythm Abdomen: no organomegaly Laboratory Tests Test 10/25/17 04:10 White Blood Count 7.1 K/UL (4.8-10.8) Red Blood Count 4.71 M/UL (4.70-6.10) Hemoglobin 15.0 G/DL (14.2-18.0) Hematocrit 43.4 % (42.0-52.0) Mean Corpuscular Volume 92 FL (80-99) Mean Corpuscular Hemoglobin 31.8 PG (27.0-31.0) H Mean Corpuscular Hemoglobin Concent 34.5 G/DL (32.0-36.0) Red Cell Distribution Width 11.8 % (11.6-14.8) Platelet Count 127 K/UL (150-450) L Mean Platelet Volume 7.3 FL (6.5-10.1) Neutrophils (%) (Auto) 59.2 % (45.0-75.0) Lymphocytes (%) (Auto) 30.2 % (20.0-45.0) Monocytes (%) (Auto) 7.5 % (1.0-10.0) Eosinophils (%) (Auto) 2.3 % (0.0-3.0) Basophils (%) (Auto) 0.8 % (0.0-2.0) Erythrocyte Sedimentation Rate 60 MM/HR (0-20) H Sodium Level 142 MMOL/L (136-145) Potassium Level 3.2 MMOL/L (3.5-5.1) L Chloride Level 107 MMOL/L (98-107) Carbon Dioxide Level 23 MMOL/L (21-32) Anion Gap 12 mmol/L (5-15) Blood Urea Nitrogen 8 mg/dL (7-18) Creatinine 0.7 MG/DL (0.55-1.30) Estimat Glomerular Filtration Rate > 60 mL/min (>60) Glucose Level 106 MG/DL (74-106) Calcium Level 8.1 MG/DL (8.5-10.1) L Phosphorus Level 1.8 MG/DL (2.5-4.9) L Magnesium Level 1.8 MG/DL (1.8-2.4) Total Bilirubin 2.0 MG/DL (0.2-1.0) H Direct Bilirubin 0.9 MG/DL (0.0-0.3) H Aspartate Amino Transf (AST/SGOT) 27 U/L (15-37) Alanine Aminotransferase (ALT/SGPT) 33 U/L (12-78) Alkaline Phosphatase 308 U/L (46-116) H C-Reactive Protein, Quantitative 5.3 mg/dL (0.00-0.90) H Total Protein 7.0 G/DL (6.4-8.2) Albumin 2.8 G/DL (3.4-5.0) L Globulin 4.2 g/dL Albumin/Globulin Ratio 0.7 (1.0-2.7) L Vancomycin Level Trough 18.0 ug/mL (5.0-12.0) H Current Medications Medications (Trade) Dose Ordered Sig/Vicenta Route PRN Reason Start Time Stop Time Status Last Admin Dose Admin Acetaminophen (Tylenol) 650 mg Q4H PRN NG T>100.5 10/22/17 17:00 11/19/17 16:59 10/24/17 20:55 Artificial Tears (Akwa-Tears) 1 drop Q6H PRN BOTH EYES dry eyes 10/22/17 17:15 11/17/17 05:14 Dextrose/Sodium Chloride 1,000 ml @ 50 mls/hr Q20H IV 10/22/17 17:30 11/16/17 17:29 10/25/17 05:45 Heparin Sodium (Porcine) (Heparin 5000 units/ml) 5,000 units EVERY 12 HOURS SUBQ 10/25/17 09:00 11/22/17 08:59 10/25/17 09:02 Levetiracetam 100 ml @ 400 mls/hr Q12HR IVPB 10/22/17 21:00 11/18/17 09:59 10/25/17 09:01 Lorazepam (Ativan 2mg/ml 1ml) 2 mg Q2H PRN IV For Seizures 10/22/17 17:00 10/26/17 16:59 Ondansetron HCl (Zofran) 4 mg Q6H PRN IVP Nausea & Vomiting 10/22/17 17:00 11/16/17 16:59 Pantoprazole (Protonix) 40 mg DAILY IVP 10/23/17 09:00 11/19/17 12:35 10/25/17 09:01 Piperacillin Sod/ Tazobactam Sod 3.375 gm/Dextrose 110 ml @ 27.5 mls/hr EVERY 8 HOURS IVPB 10/22/17 22:00 10/27/17 13:59 10/25/17 06:18 Potassium Chloride 40 meq/ Sodium Chloride 570 ml @ 142.5 mls/ hr ONCE ONCE IVPB 10/25/17 10:00 10/25/17 13:59 10/25/17 10:00 Sodium Phosphate 30 mm/Sodium Chloride 285 ml @ 47.5 mls/hr ONCE ONCE IV 10/25/17 14:00 10/25/17 19:59 Vancomycin HCl (Vanco rx to dose) 1 ea DAILY PRN [facility] pharmacy to dose 10/23/17 17:15 11/22/17 17:14 Vancomycin HCl 1 gm/Dextrose 275 ml @ 183.708 mls/hr Q12H IVPB 10/25/17 06:00 10/30/17 05:59 10/25/17 06:19 Heath Hernandez MD Oct 25, 2017 12:46
[2017-10-25] MEDS ORDERED: Sodium Phosphate 30 MM in NS 275 ML IV ONE (14:00)
[2017-10-25] MEDS ORDERED: Tubing IV Secondary IV ONE (15:57)
[2017-10-25 16:00] VITALS: BP 133/80
[2017-10-25 20:00] VITALS: BP 102/64
[2017-10-26] VITALS: BP 101/59
[2017-10-26] MEDS: D5 1/2NS 1,000 ML IV SCH ×2 (01:50→21:37)
[2017-10-26 04:00] VITALS: BP 90/53
[2017-10-26] MEDS: Piperacillin/Tazobactam 3.375 GM in D5W 110 ML IVPB SCH ×3 (06:01→21:37)
[2017-10-26] MEDS: Vancomycin 1gm/D5W 275ml IVPB SCH ×4 (06:01→18:00)
[2017-10-26 08:00] VITALS: BP 98/62
[2017-10-26] MEDS: Heparin 5000 units/ml inj SUBQ SCH ×2 (08:46→21:41)
[2017-10-26] MEDS: levETIRAcetam 500mg/NS100ml 100 ML IVPB SCH ×2 (08:46→21:37)
[2017-10-26] MEDS: Pantoprazole Inj IVP SCH (08:46)
[2017-10-26] MEDS ORDERED: NS 275ml ONE (10:00)
[2017-10-26] MEDS ORDERED: Sterile Water Irrig 1000ml IRRIG ONE (10:00)
[2017-10-26] MEDS ORDERED: D5 1/2NS 1000ml IV ONE (10:00)
[2017-10-26] MEDS ORDERED: Tubing IV Secondary IV ONE (10:00)
--- NOTE | 2017-10-26 11:01 | General Progress Note ---
Assessment/Plan Assessment/Plan s/p J tube placement GT site cellulitis hepatitis panel negative no anemia supportive care GT site care TID, would care per surgical GTFs per RD electrolyte correction zofran prn abx per ID trend LFTs fu labs dc planning Subjective ROS Limited/Unobtainable: No Allergies: Coded Allergies: SULFAMETHOXAZOLE (Verified Allergy, Unknown, 10/18/17) TRIMETHOPRIM (Verified Allergy, Unknown, 10/18/17) Objective Last 24 Hour Vital Signs Date Time Temp Pulse Resp B/P (MAP) Pulse Ox O2 Delivery O2 Flow Rate FiO2 10/26/17 09:01 89 18 28 10/26/17 08:00 88 10/26/17 08:00 99.3 90 20 98/62 (74) 98 99.3 10/26/17 08:00 Mechanical Ventilator 10/26/17 08:00 28 10/26/17 07:10 92 18 28 10/26/17 05:29 88 17 28 10/26/17 04:00 99.2 94 16 90/53 (65) 97 99.2 10/26/17 04:00 28 10/26/17 04:00 Mechanical Ventilator 10/26/17 03:38 93 10/26/17 02:50 97 15 28 10/26/17 01:29 92 16 28 10/26/17 00:00 Mechanical Ventilator 10/26/17 00:00 28 10/26/17 00:00 99.5 98 18 101/59 (73) 97 99.5 10/25/17 23:36 84 10/25/17 23:36 96 10/25/17 22:50 94 16 28 10/25/17 21:17 100 18 28 10/25/17 20:00 Mechanical Ventilator 10/25/17 20:00 28 10/25/17 20:00 98.4 96 21 102/64 (77) 98 98.4 10/25/17 19:46 103 10/25/17 19:34 94 17 28 10/25/17 17:04 93 16 28 10/25/17 16:00 93 10/25/17 16:00 28 10/25/17 16:00 98.3 79 18 133/80 (97) 99 98.3 10/25/17 16:00 Mechanical Ventilator 10/25/17 14:53 88 22 28 10/25/17 13:07 79 17 28 8/4/18 12:00 98.7 81 14 103/66 (78) 97 98.7 10/25/17 12:00 83 10/25/17 12:00 Mechanical Ventilator 10/25/17 12:00 28 10/25/17 11:09 87 16 28 Intake and Output 10/25/17 10/26/17 19:00 07:00 Intake Total 2879.1208 ml 1821.208 ml Output Total 1100 ml 300 ml Balance 1779.1208 ml 1521.208 ml Free Water 300 ml 90 ml IV Total 1859.1208 ml 1011.208 ml Tube Feeding 720 ml 720 ml Output Urine Total 1100 ml 300 ml # Bowel Movements 2 2 Height (Feet): 5 Height (Inches): 9.00 Weight (Pounds): 180 General Appearance: lethargic EENT: normal ENT inspection Neck: supple Cardiovascular: normal rate Respiratory/Chest: decreased breath sounds Abdomen: normal bowel sounds, non tender, soft Extremities: non-tender Kvng Lehman MD Oct 26, 2017 11:01
[2017-10-26 12:00] VITALS: BP 92/58
--- NOTE | 2017-10-26 13:43 | Pulmonolgy Critical Care Note ---
Critical Care - Asmt/Plan Problems: (1) Sepsis (2) Chronic respiratory failure (3) Gastrostomy site leak (4) Seizures (5) Quadriplegia Respiratory: monitor respiratory rate, adjust FIO2, CXR Cardiac: continue to monitor HR/BP Renal: F/U I&O, keep IV fluid Infectious Disease: check cultures Gastrointestinal: continue feedings/current rate Endocrine: check TSH, check HgA1C Hematologic: transfuse if hgb<8.5 Neurologic: keep patient comfortable Prophylaxis: Heparin Notes Reviewed: satellite manager Discussed with: nurses, consultants, bilingual patient support caseworkerretail general manager - Objective Last 24 Hour Vital Signs Date Time Temp Pulse Resp B/P (MAP) Pulse Ox O2 Delivery O2 Flow Rate FiO2 10/26/17 12:52 89 21 28 10/26/17 12:00 89 10/26/17 12:00 28 10/26/17 12:00 99.0 95 19 92/58 (69) 93 99.0 10/26/17 12:00 Mechanical Ventilator 10/26/17 10:50 86 18 28 10/26/17 09:01 89 18 28 10/26/17 08:00 88 10/26/17 08:00 99.3 90 20 98/62 (74) 98 99.3 10/26/17 08:00 Mechanical Ventilator 10/26/17 08:00 28 10/26/17 07:10 92 18 28 10/26/17 05:29 88 17 28 10/26/17 04:00 99.2 94 16 90/53 (65) 97 99.2 10/26/17 04:00 28 10/26/17 04:00 Mechanical Ventilator 10/26/17 03:38 93 10/26/17 02:50 97 15 28 10/26/17 01:29 92 16 28 10/26/17 00:00 Mechanical Ventilator 10/26/17 00:00 28 10/26/17 00:00 99.5 98 18 101/59 (73) 97 99.5 10/25/17 23:36 84 10/25/17 23:36 96 10/25/17 22:50 94 16 28 10/25/17 21:17 100 18 28 10/25/17 20:00 Mechanical Ventilator 10/25/17 20:00 28 10/25/17 20:00 98.4 96 21 102/64 (77) 98 98.4 10/25/17 19:46 103 10/25/17 19:34 94 17 28 10/25/17 17:04 93 16 28 10/25/17 16:00 93 10/25/17 16:00 28 10/25/17 16:00 98.3 79 18 133/80 (97) 99 98.3 10/25/17 16:00 Mechanical Ventilator 10/25/17 14:53 88 22 28 Status: awake Condition: critical Neck: full ROM Lungs: clear Heart: HR/BP stable Abdomen: soft, non-tender Extremities: no C/C/E Critical Care - Subjective ROS Limited/Unobtainable: Yes Condition: critical FI02: 28 Vent Support Breath Rate: 15 Vent Support Mode: AC Vent Tidal Volume: 500 Sputum Amount: Small PEEP: 0.0 PIP: 34 Tube Feeding Amount: 60 I&O: Intake and Output 10/25/17 10/26/17 19:00 07:00 Intake Total 2879.1208 ml 1821.208 ml Output Total 1100 ml 300 ml Balance 1779.1208 ml 1521.208 ml Free Water 300 ml 90 ml IV Total 1859.1208 ml 1011.208 ml Tube Feeding 720 ml 720 ml Output Urine Total 1100 ml 300 ml # Bowel Movements 2 2 Mellissa Garcia MD Oct 26, 2017 13:43
[2017-10-26 16:00] VITALS: BP 100/62
[2017-10-26 20:00] VITALS: BP 119/78
--- NOTE | 2017-10-26 20:39 | General Progress Note ---
Assessment/Plan Assessment/Plan #. Leukocytosis, secondary to underlying dehydration, to closely monitor for improvement. Also 2/2 recent intubation --> WBC normalized. --> 10/24: wbc 6.3 #. Thrombocytopenia - potential related to infection --> hep and hiv are both negative --> smear reviewed, no schitocytes --> no recent heparin administration #. Hyperproteinemia. Obtain serum protein electrophoresis. #. G-tube malfunction, referred to gastrointestinal team. #. Chronic respiratory failure, status post intubation/trach. #. Erythema around the G-tube site with potential cellulitis, has been seen by ID Service. --> Cultures: Gram + cocci --> Pt on IV abx. Appreciate id recs #. Seizure disorder - to see neuro prnl --> ativan prn and keprra Subjective Date patient seen: Oct 25, 2017 Allergies: Coded Allergies: SULFAMETHOXAZOLE (Verified Allergy, Unknown, 10/18/17) TRIMETHOPRIM (Verified Allergy, Unknown, 10/18/17) All Systems: reviewed and negative except above Subjective Pt awake and alert. No acute events. Objective Last 24 Hour Vital Signs Date Time Temp Pulse Resp B/P (MAP) Pulse Ox O2 Delivery O2 Flow Rate FiO2 10/26/17 20:00 28 10/26/17 20:00 99.1 110 19 119/78 (92) 99 99.1 10/26/17 20:00 Mechanical Ventilator 10/26/17 18:55 107 19 28 10/26/17 16:33 88 16 28 10/26/17 16:00 28 10/26/17 16:00 Mechanical Ventilator 10/26/17 16:00 98 10/26/17 16:00 99.0 99 19 100/62 (75) 96 99.0 10/26/17 14:31 85 20 28 10/26/17 12:52 89 21 28 10/26/17 12:00 89 10/26/17 12:00 28 10/26/17 12:00 99.0 95 19 92/58 (69) 93 99.0 10/26/17 12:00 Mechanical Ventilator 10/26/17 10:50 86 18 28 10/26/17 09:01 89 18 28 10/26/17 08:00 88 10/26/17 08:00 99.3 90 20 98/62 (74) 98 99.3 10/26/17 08:00 Mechanical Ventilator 10/26/17 08:00 28 10/26/17 07:10 92 18 28 10/26/17 05:29 88 17 28 10/26/17 04:00 99.2 94 16 90/53 (65) 97 99.2 10/26/17 04:00 28 10/26/17 04:00 Mechanical Ventilator 10/26/17 03:38 93 10/26/17 02:50 97 15 28 10/26/17 01:29 92 16 28 10/26/17 00:00 Mechanical Ventilator 10/26/17 00:00 28 10/26/17 00:00 99.5 98 18 101/59 (73) 97 99.5 10/25/17 23:36 84 10/25/17 23:36 96 10/25/17 22:50 94 16 28 10/25/17 21:17 100 18 28 Intake and Output 10/25/17 10/26/17 19:00 07:00 Intake Total 2879.1208 ml 1821.208 ml Output Total 1100 ml 300 ml Balance 1779.1208 ml 1521.208 ml Free Water 300 ml 90 ml IV Total 1859.1208 ml 1011.208 ml Tube Feeding 720 ml 720 ml Output Urine Total 1100 ml 300 ml # Bowel Movements 2 2 Height (Feet): 5 Height (Inches): 9.00 Weight (Pounds): 180 General Appearance: alert EENT: TMs normal Neck: normal alignment Cardiovascular: normal rate Respiratory/Chest: no respiratory distress Abdomen: normal bowel sounds Extremities: non-tender Edema: 1+ Leg (L), 1+ Leg (R) Edema: mild edema Neurologic: alert Skin: normal pigmentation Reid Grajeda MD Oct 26, 2017 20:39
[2017-10-27] VITALS: BP 113/74
[2017-10-27 04:00] VITALS: BP 115/76
[2017-10-27 04:41] LABS: BASOPHILS % (AUTO) 0.9 % (0.0-2.0); EOSINOPHILS % (AUTO) 2.5 % (0.0-3.0); HEMATOCRIT 43.1 % (42.0-52.0); HEMOGLOBIN 15.2 G/DL (14.2-18.0); LYMPHOCYTES % (AUTO) 16.9 % (20.0-45.0); MEAN CORPUSCULAR VOLUME 92 FL (80-99); MONOCYTES % (AUTO) 8.8 % (1.0-10.0); NEUTROPHILS % (AUTO) 70.9 % (45.0-75.0); PLATELET COUNT 164 K/UL (150-450); RED BLOOD COUNT 4.68 M/UL (4.70-6.10); WHITE BLOOD COUNT 7.2 K/UL (4.8-10.8)
[2017-10-27 04:53] LABS: ALANINE AMINOTRANSFERASE 34 U/L (12-78); ALBUMIN 2.7 G/DL (3.4-5.0); ALBUMIN/GLOBULIN RATIO 0.6 (1.0-2.7); ALKALINE PHOSPHATASE 294 U/L (46-116); ANION GAP 8 mmol/L (5-15); ASPARTATE AMINO TRANSFERASE 28 U/L (15-37); BILIRUBIN,TOTAL 1.7 MG/DL (0.2-1.0); BLOOD UREA NITROGEN 9 mg/dL (7-18); CALCIUM 8.3 MG/DL (8.5-10.1); CARBON DIOXIDE 26 MMOL/L (21-32); CHLORIDE 103 MMOL/L (98-107); CREATININE 0.6 MG/DL (0.55-1.30); POTASSIUM 2.8 MMOL/L (3.5-5.1); SODIUM 137 MMOL/L (136-145)
[2017-10-27 05:15] LABS: BILIRUBIN,DIRECT 0.7 MG/DL (0.0-0.3)
[2017-10-27 05:18] LABS: INR 1.1 (0.9-1.1)
[2017-10-27] MEDS: Vancomycin 1gm/D5W 275ml IVPB SCH ×4 (06:09→17:55)
[2017-10-27] MEDS: Piperacillin/Tazobactam 3.375 GM in D5W 110 ML IVPB SCH ×3 (06:09→22:17)
[2017-10-27 08:00] VITALS: BP 125/78
[2017-10-27] MEDS: Acetaminophen 650mg/20.3ml NG PRN (08:41)
--- NOTE | 2017-10-27 08:57 | Infectious Diseases Prog Note ---
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 pneumo) - S/P new Gtube 10/22/17 Afebrile, no leukocytosis chronic resp failure s/p trach dysphagia s/p GT SN[facility] resident Plan: - Continue Zosyn #/ and Vancomycin #6/10 -Monitor CBC/CMP, temperatures -aspiration precautions -wound care per hosp protocol Thank you for this consultation. Will continue to follow along with you. Subjective Allergies: Coded Allergies: SULFAMETHOXAZOLE (Verified Allergy, Unknown, 10/18/17) TRIMETHOPRIM (Verified Allergy, Unknown, 10/18/17) Subjective Patient awake and alert. Nonverbal but interactive asking questions Afebrile with no leukocytosis Objective Vital Signs Last 24 Hour Vital Signs Date Time Temp Pulse Resp B/P (MAP) Pulse Ox O2 Delivery O2 Flow Rate FiO2 10/27/17 08:41 100.7 10/27/17 08:00 99.3 123 19 125/78 (94) 97 99.3 10/27/17 08:00 28 10/27/17 06:55 124 20 28 10/27/17 05:05 117 17 28 10/27/17 04:00 Mechanical Ventilator 10/27/17 04:00 113 10/27/17 04:00 28 10/27/17 04:00 99.1 117 19 115/76 (89) 97 99.1 10/27/17 02:55 102 22 28 10/27/17 01:06 104 19 28 10/27/17 00:00 107 10/27/17 00:00 Mechanical Ventilator 10/27/17 00:00 98.6 109 20 113/74 (87) 97 98.6 10/26/17 22:55 108 20 28 10/26/17 21:07 109 18 28 10/26/17 20:00 28 10/26/17 20:00 99.1 110 19 119/78 (92) 99 99.1 10/26/17 20:00 109 10/26/17 20:00 Mechanical Ventilator 10/26/17 18:55 107 19 28 10/26/17 16:33 88 16 28 10/26/17 16:00 28 10/26/17 16:00 Mechanical Ventilator 10/26/17 16:00 98 10/26/17 16:00 99.0 99 19 100/62 (75) 96 99.0 10/26/17 14:31 85 20 28 10/26/17 12:52 89 21 28 10/26/17 12:00 89 10/26/17 12:00 28 10/26/17 12:00 99.0 95 19 92/58 (69) 93 99.0 10/26/17 12:00 Mechanical Ventilator 10/26/17 10:50 86 18 28 10/26/17 09:01 89 18 28 Height (Feet): 5 Height (Inches): 9.00 Weight (Pounds): 179 Objective General Appearance: no apparent distress, alert. HEENT: NCAT, MMM, anicteric, Trached Respiratory/Chest: CTAB, No wheezing Cardiovascular/Chest: normal peripheral pulses, normal rate, Abdomen: normal bowel sounds, non tender, soft, other - G tube site with dressing in place no purulent drainage Skin Exam: warm/dry, Neurologic: abnormal gait - bedridden , other - awake, responds with eyes and nodding , quadriplegia Musculoskeletal: atrophy - BLE Laboratory Tests Test 10/27/17 03:50 White Blood Count 7.2 K/UL (4.8-10.8) Red Blood Count 4.68 M/UL (4.70-6.10) L Hemoglobin 15.2 G/DL (14.2-18.0) Hematocrit 43.1 % (42.0-52.0) Mean Corpuscular Volume 92 FL (80-99) Mean Corpuscular Hemoglobin 32.4 PG (27.0-31.0) H Mean Corpuscular Hemoglobin Concent 35.2 G/DL (32.0-36.0) Red Cell Distribution Width 12.0 % (11.6-14.8) Platelet Count 164 K/UL (150-450) Mean Platelet Volume 6.9 FL (6.5-10.1) Neutrophils (%) (Auto) 70.9 % (45.0-75.0) Lymphocytes (%) (Auto) 16.9 % (20.0-45.0) L Monocytes (%) (Auto) 8.8 % (1.0-10.0) Eosinophils (%) (Auto) 2.5 % (0.0-3.0) Basophils (%) (Auto) 0.9 % (0.0-2.0) Prothrombin Time 11.2 SEC (9.30-11.50) Prothromb Time International Ratio 1.1 (0.9-1.1) Activated Partial Thromboplast Time 28 SEC (23-33) Sodium Level 137 MMOL/L (136-145) Potassium Level 2.8 MMOL/L (3.5-5.1) L Chloride Level 103 MMOL/L (98-107) Carbon Dioxide Level 26 MMOL/L (21-32) Anion Gap 8 mmol/L (5-15) Blood Urea Nitrogen 9 mg/dL (7-18) Creatinine 0.6 MG/DL (0.55-1.30) Estimat Glomerular Filtration Rate > 60 mL/min (>60) Glucose Level 137 MG/DL (74-106) H Calcium Level 8.3 MG/DL (8.5-10.1) L Phosphorus Level 2.0 MG/DL (2.5-4.9) L Magnesium Level 1.6 MG/DL (1.8-2.4) L Total Bilirubin 1.7 MG/DL (0.2-1.0) H Direct Bilirubin 0.7 MG/DL (0.0-0.3) H Aspartate Amino Transf (AST/SGOT) 28 U/L (15-37) Alanine Aminotransferase (ALT/SGPT) 34 U/L (12-78) Alkaline Phosphatase 294 U/L (46-116) H Total Protein 7.0 G/DL (6.4-8.2) Albumin 2.7 G/DL (3.4-5.0) L Globulin 4.3 g/dL Albumin/Globulin Ratio 0.6 (1.0-2.7) L Current Medications Medications (Trade) Dose Ordered Sig/Vicenta Route PRN Reason Start Time Stop Time Status Last Admin Dose Admin Acetaminophen (Tylenol) 650 mg Q4H PRN NG T>100.5 10/22/17 17:00 11/19/17 16:59 10/27/17 08:41 Artificial Tears (Akwa-Tears) 1 drop Q6H PRN BOTH EYES dry eyes 10/22/17 17:15 11/17/17 05:14 Dextrose/Sodium Chloride 1,000 ml @ 50 mls/hr Q20H IV 10/22/17 17:30 11/16/17 17:29 10/26/17 21:37 Heparin Sodium (Porcine) (Heparin 5000 units/ml) 5,000 units EVERY 12 HOURS SUBQ 10/25/17 09:00 11/22/17 08:59 10/26/17 21:41 Levetiracetam 100 ml @ 400 mls/hr Q12HR IVPB 10/22/17 21:00 11/18/17 09:59 10/26/17 21:37 Ondansetron HCl (Zofran) 4 mg Q6H PRN IVP Nausea & Vomiting 10/22/17 17:00 11/16/17 16:59 Pantoprazole (Protonix) 40 mg DAILY IVP 10/23/17 09:00 11/19/17 12:35 10/26/17 08:46 Piperacillin Sod/ Tazobactam Sod 3.375 gm/Dextrose 110 ml @ 27.5 mls/hr EVERY 8 HOURS IVPB 10/22/17 22:00 10/31/17 21:59 10/27/17 06:09 Vancomycin HCl (Vanco rx to dose) 1 ea DAILY PRN MISC pharmacy to dose 10/23/17 17:15 11/22/17 17:14 Vancomycin HCl 1 gm/Dextrose 275 ml @ 183.708 mls/hr Q12H IVPB 10/25/17 06:00 10/30/17 05:59 10/27/17 06:09 Nikita Mobley M.D. Oct 27, 2017 08:57
--- NOTE | 2017-10-27 09:26 | General Progress Note ---
Assessment/Plan Status: stable Assessment/Plan #. Leukocytosis, secondary to underlying dehydration, to closely monitor for improvement. Also 2/2 recent intubation --> Continue to closely monitor. --> 10/25: wbc 7.1 wnl --> Pt remains on IV abx. ID follow up. #. Thrombocytopenia - potentially related to infection. --> hep and hiv are both negative --> smear reviewed, no schitocytes --> no recent heparin administration --> 10/25: PLT of 127, remains low. #. Hyperproteinemia. Obtain serum protein electrophoresis. #. G-tube malfunction, referred to gastrointestinal team. #. Chronic respiratory failure, status post intubation/trach. #. Erythema around the G-tube site with potential cellulitis, has been seen by ID Service. --> Cultures: Gram + cocci --> Pt on IV abx. Appreciate id recs #. Seizure disorder - to see neuro prnl --> ativan prn and keprra The time the note was entered does not necessarily correspond to the time the patient was seen. Subjective Date patient seen: Oct 26, 2017 ROS Limited/Unobtainable: Yes Allergies: Coded Allergies: SULFAMETHOXAZOLE (Verified Allergy, Unknown, 10/18/17) TRIMETHOPRIM (Verified Allergy, Unknown, 10/18/17) All Systems: reviewed and negative except above Subjective Pt awake and alert. No acute events. Remains on vent. HIDA scan pending. Objective Last 24 Hour Vital Signs Date Time Temp Pulse Resp B/P (MAP) Pulse Ox O2 Delivery O2 Flow Rate FiO2 10/27/17 09:08 121 19 28 10/27/17 08:41 100.7 10/27/17 08:00 99.3 123 19 125/78 (94) 97 99.3 10/27/17 08:00 28 10/27/17 06:55 124 20 28 10/27/17 05:05 117 17 28 10/27/17 04:00 Mechanical Ventilator 10/27/17 04:00 113 10/27/17 04:00 28 10/27/17 04:00 99.1 117 19 115/76 (89) 97 99.1 10/27/17 02:55 102 22 28 10/27/17 01:06 104 19 28 10/27/17 00:00 107 8/6/18 00:00 Mechanical Ventilator 10/27/17 00:00 98.6 109 20 113/74 (87) 97 98.6 10/26/17 22:55 108 20 28 10/26/17 21:07 109 18 28 10/26/17 20:00 28 10/26/17 20:00 99.1 110 19 119/78 (92) 99 99.1 10/26/17 20:00 109 10/26/17 20:00 Mechanical Ventilator 10/26/17 18:55 107 19 28 10/26/17 16:33 88 16 28 10/26/17 16:00 28 10/26/17 16:00 Mechanical Ventilator 10/26/17 16:00 98 10/26/17 16:00 99.0 99 19 100/62 (75) 96 99.0 10/26/17 14:31 85 20 28 10/26/17 12:52 89 21 28 10/26/17 12:00 89 10/26/17 12:00 28 10/26/17 12:00 99.0 95 19 92/58 (69) 93 99.0 10/26/17 12:00 Mechanical Ventilator 10/26/17 10:50 86 18 28 Intake and Output 10/26/17 10/27/17 19:00 07:00 Intake Total 2187.500 ml 880 ml Output Total 1825 ml 1000 ml Balance 362.500 ml -120 ml Free Water 300 ml 100 ml IV Total 1167.500 ml Tube Feeding 720 ml 780 ml Output Urine Total 1825 ml 1000 ml # Bowel Movements 4 4 Laboratory Tests 10/27/17 03:50: White Blood Count 7.2, Red Blood Count 4.68L, Hemoglobin 15.2, Hematocrit 43.1, Mean Corpuscular Volume 92, Mean Corpuscular Hemoglobin 32.4H, Mean Corpuscular Hemoglobin Concent 35.2, Red Cell Distribution Width 12.0, Platelet Count 164, Mean Platelet Volume 6.9, Neutrophils (%) (Auto) 70.9, Lymphocytes (%) (Auto) 16.9L, Monocytes (%) (Auto) 8.8, Eosinophils (%) (Auto) 2.5, Basophils (%) (Auto ) 0.9, Prothrombin Time 11.2, Prothromb Time International Ratio 1.1, Activated Partial Thromboplast Time 28, Sodium Level 137, Potassium Level 2.8L, Chloride Level 103, Carbon Dioxide Level 26, Anion Gap 8, Blood Urea Nitrogen 9, Creatinine 0.6, Estimat Glomerular Filtration Rate > 60, Glucose Level 137H, Calcium Level 8.3L, Phosphorus Level 2.0L, Magnesium Level 1.6L, Total Bilirubin 1.7H, Direct Bilirubin 0.7H, Aspartate Amino Transf (AST/SGOT) 28, Alanine Aminotransferase (ALT/SGPT) 34, Alkaline Phosphatase 294H, Total Protein 7.0, Albumin 2.7L, Globulin 4.3, Albumin/Globulin Ratio 0.6L Height (Feet): 5 Height (Inches): 9.00 Weight (Pounds): 179 General Appearance: no apparent distress EENT: PERRL/EOMI Neck: normal alignment Cardiovascular: normal peripheral pulses Respiratory/Chest: no respiratory distress Abdomen: soft Reid Grajeda MD Oct 27, 2017 09:26
[2017-10-27] MEDS: levETIRAcetam 500mg/NS100ml 100 ML IVPB SCH ×2 (09:42→21:01)
[2017-10-27] MEDS: Pantoprazole Inj IVP SCH (09:42)
[2017-10-27] MEDS: Heparin 5000 units/ml inj SUBQ SCH (09:44)
--- NOTE | 2017-10-27 09:59 | Diagnostic Imaging Report ---
Indication: Dyspnea Technique: One view of the chest Comparison: 10/21/2017 Findings: There is a tracheostomy again demonstrated. There is minimal atelectasis at the left lung base. There is equivocal minimal blunting of the right costophrenic angle. The lungs and pleural spaces are otherwise clear. The heart size is normal. There are degenerative changes of the left shoulder Impression: Minimal left basilar atelectasis. Equivocal trace right pleural effusion No acute process otherwise. Other findings as noted
--- NOTE | 2017-10-27 10:29 | GI Progress Note ---
Assessment/Plan Problems: (1) Malfunction of gastrostomy tube ICD Codes: K94.23 - Gastrostomy malfunction SNOMED: 016338524 (2) Sepsis ICD Codes: A41.9 - Sepsis, unspecified organism SNOMED: 87134991 (3) Gastrostomy site leak ICD Codes: K94.23 - Gastrostomy malfunction SNOMED: 491182014 (4) Seizures ICD Codes: R56.9 - Unspecified convulsions SNOMED: 51869732 Status: stable Status Narrative Discussed with Dr. Lehman. Assessment/Plan s/p J tube placement GT site cellulitis hepatitis panel negative no anemia supportive care GT site care TID, would care per surgical GTFs per RD electrolyte correction zofran prn abx per ID trend LFTs fu labs dc planning The patient was seen and examined at bedside and all new and available data was reviewed in the patients chart. I agree with the above findings, impression and plan. (Patient seen earlier today. Signature stamp does not reflect patient encounter time.). - Kvng Lehman MD Subjective Subjective limited Objective Last 24 Hour Vital Signs Date Time Temp Pulse Resp B/P (MAP) Pulse Ox O2 Delivery O2 Flow Rate FiO2 10/27/17 09:11 99.8 10/27/17 09:08 121 19 28 10/27/17 08:41 100.7 10/27/17 08:00 99.3 123 19 125/78 (94) 97 99.3 10/27/17 08:00 28 10/27/17 08:00 123 10/27/17 06:55 124 20 28 10/27/17 05:05 117 17 28 10/27/17 04:00 Mechanical Ventilator 10/27/17 04:00 113 10/27/17 04:00 28 10/27/17 04:00 99.1 117 19 115/76 (89) 97 99.1 10/27/17 02:55 102 22 28 10/27/17 01:06 104 19 28 10/27/17 00:00 107 10/27/17 00:00 Mechanical Ventilator 10/27/17 00:00 98.6 109 20 113/74 (87) 97 98.6 10/26/17 22:55 108 20 28 10/26/17 21:07 109 18 28 10/26/17 20:00 28 10/26/17 20:00 99.1 110 19 119/78 (92) 99 99.1 10/26/17 20:00 109 10/26/17 20:00 Mechanical Ventilator 10/26/17 18:55 107 19 28 10/26/17 16:33 88 16 28 10/26/17 16:00 28 10/26/17 16:00 Mechanical Ventilator 10/26/17 16:00 98 10/26/17 16:00 99.0 99 19 100/62 (75) 96 99.0 10/26/17 14:31 85 20 28 10/26/17 12:52 89 21 28 10/26/17 12:00 89 10/26/17 12:00 28 10/26/17 12:00 99.0 95 19 92/58 (69) 93 99.0 10/26/17 12:00 Mechanical Ventilator 10/26/17 10:50 86 18 28 Intake and Output 10/26/17 10/27/17 19:00 07:00 Intake Total 2187.500 ml 880 ml Output Total 1825 ml 1000 ml Balance 362.500 ml -120 ml Free Water 300 ml 100 ml IV Total 1167.500 ml Tube Feeding 720 ml 780 ml Output Urine Total 1825 ml 1000 ml # Bowel Movements 4 4 Laboratory Tests Test 10/27/17 03:50 White Blood Count 7.2 K/UL (4.8-10.8) Red Blood Count 4.68 M/UL (4.70-6.10) L Hemoglobin 15.2 G/DL (14.2-18.0) Hematocrit 43.1 % (42.0-52.0) Mean Corpuscular Volume 92 FL (80-99) Mean Corpuscular Hemoglobin 32.4 PG (27.0-31.0) H Mean Corpuscular Hemoglobin Concent 35.2 G/DL (32.0-36.0) Red Cell Distribution Width 12.0 % (11.6-14.8) Platelet Count 164 K/UL (150-450) Mean Platelet Volume 6.9 FL (6.5-10.1) Neutrophils (%) (Auto) 70.9 % (45.0-75.0) Lymphocytes (%) (Auto) 16.9 % (20.0-45.0) L Monocytes (%) (Auto) 8.8 % (1.0-10.0) Eosinophils (%) (Auto) 2.5 % (0.0-3.0) Basophils (%) (Auto) 0.9 % (0.0-2.0) Prothrombin Time 11.2 SEC (9.30-11.50) Prothromb Time International Ratio 1.1 (0.9-1.1) Activated Partial Thromboplast Time 28 SEC (23-33) Sodium Level 137 MMOL/L (136-145) Potassium Level 2.8 MMOL/L (3.5-5.1) L Chloride Level 103 MMOL/L (98-107) Carbon Dioxide Level 26 MMOL/L (21-32) Anion Gap 8 mmol/L (5-15) Blood Urea Nitrogen 9 mg/dL (7-18) Creatinine 0.6 MG/DL (0.55-1.30) Estimat Glomerular Filtration Rate > 60 mL/min (>60) Glucose Level 137 MG/DL (74-106) H Calcium Level 8.3 MG/DL (8.5-10.1) L Phosphorus Level 2.0 MG/DL (2.5-4.9) L Magnesium Level 1.6 MG/DL (1.8-2.4) L Total Bilirubin 1.7 MG/DL (0.2-1.0) H Direct Bilirubin 0.7 MG/DL (0.0-0.3) H Aspartate Amino Transf (AST/SGOT) 28 U/L (15-37) Alanine Aminotransferase (ALT/SGPT) 34 U/L (12-78) Alkaline Phosphatase 294 U/L (46-116) H Total Protein 7.0 G/DL (6.4-8.2) Albumin 2.7 G/DL (3.4-5.0) L Globulin 4.3 g/dL Albumin/Globulin Ratio 0.6 (1.0-2.7) L Height (Feet): 5 Height (Inches): 9.00 Weight (Pounds): 179 General Appearance: no apparent distress Cardiovascular: normal rate Respiratory/Chest: normal breath sounds, no respiratory distress, other - mech vent Abdominal Exam: other - J tube Daisy Bernstein NP Oct 27, 2017 10:29
--- NOTE | 2017-10-27 11:10 | Pulmonolgy Critical Care Note ---
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 Discussed with: nurses, consultants, renal case managerclient solutions manager - Objective Last 24 Hour Vital Signs Date Time Temp Pulse Resp B/P (MAP) Pulse Ox O2 Delivery O2 Flow Rate FiO2 10/27/17 11:05 117 15 28 10/27/17 09:11 99.8 10/27/17 09:08 121 19 28 10/27/17 08:41 100.7 10/27/17 08:00 99.3 123 19 125/78 (94) 97 99.3 10/27/17 08:00 28 10/27/17 08:00 123 10/27/17 06:55 124 20 28 10/27/17 05:05 117 17 28 10/27/17 04:00 Mechanical Ventilator 10/27/17 04:00 113 10/27/17 04:00 28 10/27/17 04:00 99.1 117 19 115/76 (89) 97 99.1 10/27/17 02:55 102 22 28 10/27/17 01:06 104 19 28 10/27/17 00:00 107 10/27/17 00:00 Mechanical Ventilator 10/27/17 00:00 98.6 109 20 113/74 (87) 97 98.6 10/26/17 22:55 108 20 28 10/26/17 21:07 109 18 28 10/26/17 20:00 28 10/26/17 20:00 99.1 110 19 119/78 (92) 99 99.1 10/26/17 20:00 109 10/26/17 20:00 Mechanical Ventilator 10/26/17 18:55 107 19 28 10/26/17 16:33 88 16 28 10/26/17 16:00 28 10/26/17 16:00 Mechanical Ventilator 10/26/17 16:00 98 10/26/17 16:00 99.0 99 19 100/62 (75) 96 99.0 10/26/17 14:31 85 20 28 10/26/17 12:52 89 21 28 10/26/17 12:00 89 10/26/17 12:00 28 10/26/17 12:00 99.0 95 19 92/58 (69) 93 99.0 10/26/17 12:00 Mechanical Ventilator Status: awake Condition: critical HEENT: atraumatic Lungs: chest wall tender Heart: HR/BP stable, regular Abdomen: soft, non-tender Extremities: no C/C/E Decubiti: location, stage Critical Care - Subjective ROS Limited/Unobtainable: Yes Condition: critical FI02: 28 Vent Support Breath Rate: 15 Vent Support Mode: AC Vent Tidal Volume: 500 Sputum Amount: Moderate PEEP: 0.0 PIP: 43 Tube Feeding Amount: 60 I&O: Intake and Output 10/26/17 10/27/17 19:00 07:00 Intake Total 2187.500 ml 880 ml Output Total 1825 ml 1000 ml Balance 362.500 ml -120 ml Free Water 300 ml 100 ml IV Total 1167.500 ml Tube Feeding 720 ml 780 ml Output Urine Total 1825 ml 1000 ml # Bowel Movements 4 4 Labs: Laboratory Tests Test 10/27/17 03:50 White Blood Count 7.2 K/UL (4.8-10.8) Red Blood Count 4.68 M/UL (4.70-6.10) L Hemoglobin 15.2 G/DL (14.2-18.0) Hematocrit 43.1 % (42.0-52.0) Mean Corpuscular Volume 92 FL (80-99) Mean Corpuscular Hemoglobin 32.4 PG (27.0-31.0) H Mean Corpuscular Hemoglobin Concent 35.2 G/DL (32.0-36.0) Red Cell Distribution Width 12.0 % (11.6-14.8) Platelet Count 164 K/UL (150-450) Mean Platelet Volume 6.9 FL (6.5-10.1) Neutrophils (%) (Auto) 70.9 % (45.0-75.0) Lymphocytes (%) (Auto) 16.9 % (20.0-45.0) L Monocytes (%) (Auto) 8.8 % (1.0-10.0) Eosinophils (%) (Auto) 2.5 % (0.0-3.0) Basophils (%) (Auto) 0.9 % (0.0-2.0) Prothrombin Time 11.2 SEC (9.30-11.50) Prothromb Time International Ratio 1.1 (0.9-1.1) Activated Partial Thromboplast Time 28 SEC (23-33) Sodium Level 137 MMOL/L (136-145) Potassium Level 2.8 MMOL/L (3.5-5.1) L Chloride Level 103 MMOL/L (98-107) Carbon Dioxide Level 26 MMOL/L (21-32) Anion Gap 8 mmol/L (5-15) Blood Urea Nitrogen 9 mg/dL (7-18) Creatinine 0.6 MG/DL (0.55-1.30) Estimat Glomerular Filtration Rate > 60 mL/min (>60) Glucose Level 137 MG/DL (74-106) H Calcium Level 8.3 MG/DL (8.5-10.1) L Phosphorus Level 2.0 MG/DL (2.5-4.9) L Magnesium Level 1.6 MG/DL (1.8-2.4) L Total Bilirubin 1.7 MG/DL (0.2-1.0) H Direct Bilirubin 0.7 MG/DL (0.0-0.3) H Aspartate Amino Transf (AST/SGOT) 28 U/L (15-37) Alanine Aminotransferase (ALT/SGPT) 34 U/L (12-78) Alkaline Phosphatase 294 U/L (46-116) H Total Protein 7.0 G/DL (6.4-8.2) Albumin 2.7 G/DL (3.4-5.0) L Globulin 4.3 g/dL Albumin/Globulin Ratio 0.6 (1.0-2.7) L Mellissa Garcia MD Oct 27, 2017 11:10
[2017-10-27] MEDS ORDERED: Morphine Sulfate 2mg/ml Inj(IV/IM USE ONLY) IVP SCH (11:15)
[2017-10-27] MEDS ORDERED: Norco 5mg/325mg tab ORAL PRN (11:15)
[2017-10-27] MEDS ORDERED: LORazepam Inj 2mg/ml 1ml IV PRN (11:15)
[2017-10-27 12:00] VITALS: BP 124/84
--- NOTE | 2017-10-27 12:53 | Consultation ---
History of Present Illness General Date patient seen: Oct 27, 2017 Time patient seen: 12:47 Chief Complaint: Malfunctioning Gastric Tube Referring physician: dr Groves Reason for Consultation: GT SITE LEAKAGE Present Illness HPI 56 years old male with past medical history of respiratory failure, tracheostomy , dysphagia, G-tube, [facility] due to persistent leakage from the old G-tube site. G-tube was recently removed. Patient with persistent drainage from G tube site.Upon evaluation vital signs were stable Laboratory workup revealed no leukocytosis, stable hemoglobin and hematocrit. Elevated T/D bili-1.6/0.6 respectively and AST 59 , stable electrolytes Troponin negative chest x-ray revealed no acute cardiopulmonary pathology. Patient admitted for further management Allergies: Coded Allergies: SULFAMETHOXAZOLE (Verified Allergy, Unknown, 10/18/17) TRIMETHOPRIM (Verified Allergy, Unknown, 10/18/17) Medication History Scheduled Acetaminophen* (Tylenol*), 650 MG PO Q4H, (Reported) Amino Acids/Protein Hydrolys (Pro-Stat Liquid), 30 ML ORAL TWICE A DAY, ( Reported) Ascorbic Acid* (Vitamin C*), 500 MG ORAL DAILY, (Reported) Ascorbic Acid* (Vitamin C*), 500 MG ORAL DAILY, (Reported) Atorvastatin (Lipitor), 10 MG ORAL BEDTIME, (Reported) Baclofen* (Baclofen*), 15 MG ORAL Q6HR, (Reported) Cholecalciferol (Vitamin D3)* (Vitamin D*), 5,000 UNIT ORAL DAILY, (Reported) Docusate Sodium* (Colace*), 100 MG ORAL TWICE A DAY, (Reported) Famotidine (Famotidine), 20 MG ORAL TWICE A DAY, (Reported) Gabapentin (Gabapentin), 800 MG ORAL Q6HR, (Reported) Levothyroxine Sodium (Levothyroxine Sodium), 125 MCG PO DAILY, (Reported) Magnesium Oxide (Magnesium), 800 MG PO DAILY, (Reported) Metoprolol Tartrate* (Metoprolol Tartrate*), 50 MG ORAL DAILY, (Reported) Multivit &Minerals/Ferrous Fum (Multivitamin Liquid), 5 ML PO DAILY, (Reported) Scheduled PRN Albuterol Sulfate* (Albuterol Sulfate Hhn*), 3 ML INH Q3HR PRN for Shortness of Breath, (Reported) Aspirin (Aspirin), 81 MG PO DAILY PRN for Mild Pain/Temp > 100.5, (Reported) Dextran 70/Hypromellose (Artificial Tears Eye Drops*), 1 DROP BOTH EYES Q6HR PRN for dry eyes, (Reported) Hydrocodone Bit/Acetaminophen 5-325* ([place] 5-325*), 1 TAB ORAL Q6H PRN for For Pain, (Reported) Magnesium Hydroxide* (Milk Of Magnesia*), 30 ML ORAL DAILY PRN for Constipation, (Reported) Patient History Healthcare decision maker RALPH ALFARO, SISTER IN LAW Resuscitation status Advanced Directive on File Review of Systems Constitutional: Reports: no symptoms Eye: Reports: no symptoms ENT: Reports: no symptoms Respiratory: Reports: no symptoms Cardiovascular: Reports: no symptoms Gastrointestinal: Reports: no symptoms Genitourinary: Reports: no symptoms Musculoskeletal: Reports: no symptoms Skin: Reports: no symptoms Psychiatric: Reports: no symptoms Neurological: Reports: no symptoms Endocrine: Reports: no symptoms Hematologic/Lymphatic: Reports: no symptoms Physical Exam General Appearance: no apparent distress Lines, tubes and drains: peripheral HEENT: normocephalic, atraumatic Neck: normal alignment, supple, normal inspection Respiratory/Chest: chest wall non-tender, lungs clear Cardiovascular/Chest: normal peripheral pulses, normal rate, regularly irregular Abdomen: normal bowel sounds, non tender, soft Extremities: non-tender Skin Exam: normal pigmentation, warm/dry Neurologic: no motor/sensory deficits, abnormal gait Musculoskeletal: normal muscle bulk Last 24 Hour Vital Signs Date Time Temp Pulse Resp B/P (MAP) Pulse Ox O2 Delivery O2 Flow Rate FiO2 10/27/17 12:35 115 16 28 10/27/17 12:00 99.8 117 19 124/84 (97) 97 99.8 10/27/17 11:05 117 15 28 10/27/17 09:11 99.8 10/27/17 09:08 121 19 28 10/27/17 08:41 100.7 10/27/17 08:00 99.3 123 19 125/78 (94) 97 99.3 10/27/17 08:00 28 10/27/17 08:00 123 10/27/17 08:00 Mechanical Ventilator 10/27/17 06:55 124 20 28 10/27/17 05:05 117 17 28 10/27/17 04:00 Mechanical Ventilator 10/27/17 04:00 113 10/27/17 04:00 28 10/27/17 04:00 99.1 117 19 115/76 (89) 97 99.1 10/27/17 02:55 102 22 28 10/27/17 01:06 104 19 28 10/27/17 00:00 107 10/27/17 00:00 Mechanical Ventilator 10/27/17 00:00 98.6 109 20 113/74 (87) 97 98.6 10/26/17 22:55 108 20 28 10/26/17 21:07 109 18 28 10/26/17 20:00 28 10/26/17 20:00 99.1 110 19 119/78 (92) 99 99.1 10/26/17 20:00 109 10/26/17 20:00 Mechanical Ventilator 10/26/17 18:55 107 19 28 10/26/17 16:33 88 16 28 10/26/17 16:00 28 10/26/17 16:00 Mechanical Ventilator 10/26/17 16:00 98 10/26/17 16:00 99.0 99 19 100/62 (75) 96 99.0 10/26/17 14:31 85 20 28 10/26/17 12:52 89 21 28 Intake and Output 10/26/17 10/27/17 19:00 07:00 Intake Total 2187.500 ml 880 ml Output Total 1825 ml 1000 ml Balance 362.500 ml -120 ml Free Water 300 ml 100 ml IV Total 1167.500 ml Tube Feeding 720 ml 780 ml Output Urine Total 1825 ml 1000 ml # Bowel Movements 4 4 Laboratory Tests Test 10/27/17 03:50 White Blood Count 7.2 K/UL (4.8-10.8) Red Blood Count 4.68 M/UL (4.70-6.10) L Hemoglobin 15.2 G/DL (14.2-18.0) Hematocrit 43.1 % (42.0-52.0) Mean Corpuscular Volume 92 FL (80-99) Mean Corpuscular Hemoglobin 32.4 PG (27.0-31.0) H Mean Corpuscular Hemoglobin Concent 35.2 G/DL (32.0-36.0) Red Cell Distribution Width 12.0 % (11.6-14.8) Platelet Count 164 K/UL (150-450) Mean Platelet Volume 6.9 FL (6.5-10.1) Neutrophils (%) (Auto) 70.9 % (45.0-75.0) Lymphocytes (%) (Auto) 16.9 % (20.0-45.0) L Monocytes (%) (Auto) 8.8 % (1.0-10.0) Eosinophils (%) (Auto) 2.5 % (0.0-3.0) Basophils (%) (Auto) 0.9 % (0.0-2.0) Prothrombin Time 11.2 SEC (9.30-11.50) Prothromb Time International Ratio 1.1 (0.9-1.1) Activated Partial Thromboplast Time 28 SEC (23-33) Sodium Level 137 MMOL/L (136-145) Potassium Level 2.8 MMOL/L (3.5-5.1) L Chloride Level 103 MMOL/L (98-107) Carbon Dioxide Level 26 MMOL/L (21-32) Anion Gap 8 mmol/L (5-15) Blood Urea Nitrogen 9 mg/dL (7-18) Creatinine 0.6 MG/DL (0.55-1.30) Estimat Glomerular Filtration Rate > 60 mL/min (>60) Glucose Level 137 MG/DL (74-106) H Calcium Level 8.3 MG/DL (8.5-10.1) L Phosphorus Level 2.0 MG/DL (2.5-4.9) L Magnesium Level 1.6 MG/DL (1.8-2.4) L Total Bilirubin 1.7 MG/DL (0.2-1.0) H Direct Bilirubin 0.7 MG/DL (0.0-0.3) H Aspartate Amino Transf (AST/SGOT) 28 U/L (15-37) Alanine Aminotransferase (ALT/SGPT) 34 U/L (12-78) Alkaline Phosphatase 294 U/L (46-116) H Total Protein 7.0 G/DL (6.4-8.2) Albumin 2.7 G/DL (3.4-5.0) L Globulin 4.3 g/dL Albumin/Globulin Ratio 0.6 (1.0-2.7) L Height (Feet): 5 Height (Inches): 9.00 Weight (Pounds): 179 Medications Current Medications Medications (Trade) Dose Ordered Sig/Vicenta Route PRN Reason Start Time Stop Time Status Last Admin Dose Admin Acetaminophen (Tylenol) 650 mg Q4H PRN NG T>100.5 10/22/17 17:00 11/19/17 16:59 10/27/17 08:41 Acetaminophen/ Hydrocodone Bitart ([place] 5/325) 1 tab Q6H PRN ORAL For Pain 10/27/17 11:15 11/03/17 11:14 10/27/17 11:56 Artificial Tears (Akwa-Tears) 1 drop Q6H PRN BOTH EYES dry eyes 10/22/17 17:15 11/17/17 05:14 Dextrose/Sodium Chloride 1,000 ml @ 50 mls/hr Q20H IV 10/22/17 17:30 11/16/17 17:29 10/26/17 21:37 Levetiracetam 100 ml @ 400 mls/hr Q12HR IVPB 10/22/17 21:00 11/18/17 09:59 10/27/17 09:42 Lorazepam (Ativan 2mg/ml 1ml) 2 mg Q2H PRN IV For Seizures 10/27/17 11:15 11/03/17 11:14 Magnesium Sulfate 100 ml @ 100 mls/hr Q1H IVPB 10/27/17 13:00 10/27/17 14:59 Ondansetron HCl (Zofran) 4 mg Q6H PRN IVP Nausea & Vomiting 10/22/17 17:00 11/16/17 16:59 Pantoprazole (Protonix) 40 mg DAILY IVP 10/23/17 09:00 11/19/17 12:35 10/27/17 09:42 Piperacillin Sod/ Tazobactam Sod 3.375 gm/Dextrose 110 ml @ 27.5 mls/hr EVERY 8 HOURS IVPB 10/22/17 22:00 10/31/17 21:59 10/27/17 06:09 Potassium Chloride 100 ml @ 100 mls/hr Q1H IVPB 10/27/17 11:30 10/27/17 14:29 10/27/17 11:50 Sodium Phosphate 30 mm/Sodium Chloride 285 ml @ 47.5 mls/hr ONCE ONCE IV 10/27/17 15:00 10/27/17 20:59 Vancomycin HCl (Vanco rx to dose) 1 ea DAILY PRN MISC pharmacy to dose 10/23/17 17:15 11/22/17 17:14 Vancomycin HCl 1 gm/Dextrose 275 ml @ 183.708 mls/hr Q12H IVPB 10/25/17 06:00 10/30/17 05:59 10/27/17 06:09 Assessment/Plan Status: progressing Assessment/Plan Assessment: (1) Sepsis (2) Chronic respiratory failure (3) Gastrostomy site leak (4) Seizures (5) Quadriplegia Plan: Continue wound care Trach care Supportive care Continue keppra for seizures No indication for cardiac cath Stress test when stable Dispo planning Nikita Reddy M.D. Oct 27, 2017 12:53
[2017-10-27] MEDS ORDERED: Sodium Phosphate 30 MM in NS 275 ML IV ONE (15:00)
--- NOTE | 2017-10-27 15:17 | Diagnostic Imaging Report ---
Indications: 56-year-old male with abdominal pain, gallbladder wall thickening on recent ultrasound Technique: IV administration 5.5 mCi 99 M technetium Choletec. Serial images obtained over the abdomen for one hour Comparison: None Findings: Prompt tracer uptake within the liver. Extrahepatic bile ducts are seen at 10 minutes. Excretion into the duodenum demonstrated at 37 minutes. Gallbladder visualized at 13 minutes. Impression: Negative
[2017-10-27 16:00] VITALS: BP 114/88
--- NOTE | 2017-10-27 17:25 | General Progress Note ---
Assessment/Plan Status: unchanged Assessment/Plan #. Leukocytosis, secondary to underlying dehydration, to closely monitor for improvement. Also 2/2 recent intubation --> Continue to closely monitor. --> 10/27: wbc 7.2 wnl --> Pt remains on IV abx. ID follow up. #. Thrombocytopenia - potentially related to infection. --> hep and hiv are both negative --> smear reviewed, no schitocytes --> no recent heparin administration --> 10/27: PLT of 164, wnl. --> 10/27: HIDA scan negative. #. Hyperproteinemia. Obtain serum protein electrophoresis. #. G-tube malfunction, referred to gastrointestinal team. #. Chronic respiratory failure, status post intubation/trach. #. Erythema around the G-tube site with potential cellulitis, has been seen by ID Service. --> Cultures: Gram + cocci --> Pt on IV abx. Appreciate id recs #. Seizure disorder - to see neuro prnl --> ativan prn and keprra The time the note was entered does not necessarily correspond to the time the patient was seen. Subjective Date patient seen: Oct 27, 2017 ROS Limited/Unobtainable: Yes Genitourinary: Reports: hematuria Allergies: Coded Allergies: SULFAMETHOXAZOLE (Verified Allergy, Unknown, 10/18/17) TRIMETHOPRIM (Verified Allergy, Unknown, 10/18/17) All Systems: reviewed and negative except above Subjective Pt with gross hematuria, Dr. Garcia made aware. HIDA scan negative. Objective Last 24 Hour Vital Signs Date Time Temp Pulse Resp B/P (MAP) Pulse Ox O2 Delivery O2 Flow Rate FiO2 10/27/17 14:32 108 15 28 10/27/17 12:35 115 16 28 10/27/17 12:00 Mechanical Ventilator 10/27/17 12:00 99.8 117 19 124/84 (97) 97 99.8 10/27/17 12:00 28 10/27/17 11:32 133 10/27/17 11:05 117 15 28 10/27/17 09:11 99.8 10/27/17 09:08 121 19 28 10/27/17 08:41 100.7 10/27/17 08:00 99.3 123 19 125/78 (94) 97 99.3 10/27/17 08:00 28 10/27/17 08:00 123 10/27/17 08:00 Mechanical Ventilator 10/27/17 06:55 124 20 28 10/27/17 05:05 117 17 28 10/27/17 04:00 Mechanical Ventilator 10/27/17 04:00 113 10/27/17 04:00 28 10/27/17 04:00 99.1 117 19 115/76 (89) 97 99.1 10/27/17 02:55 102 22 28 10/27/17 01:06 104 19 28 10/27/17 00:00 107 10/27/17 00:00 Mechanical Ventilator 10/27/17 00:00 98.6 109 20 113/74 (87) 97 98.6 10/26/17 22:55 108 20 28 10/26/17 21:07 109 18 28 10/26/17 20:00 28 10/26/17 20:00 99.1 110 19 119/78 (92) 99 99.1 10/26/17 20:00 109 10/26/17 20:00 Mechanical Ventilator 10/26/17 18:55 107 19 28 Intake and Output 10/26/17 10/27/17 19:00 07:00 Intake Total 2187.500 ml 880 ml Output Total 1825 ml 1000 ml Balance 362.500 ml -120 ml Free Water 300 ml 100 ml IV Total 1167.500 ml Tube Feeding 720 ml 780 ml Output Urine Total 1825 ml 1000 ml # Bowel Movements 4 4 Laboratory Tests 10/27/17 03:50: White Blood Count 7.2, Red Blood Count 4.68L, Hemoglobin 15.2, Hematocrit 43.1, Mean Corpuscular Volume 92, Mean Corpuscular Hemoglobin 32.4H, Mean Corpuscular Hemoglobin Concent 35.2, Red Cell Distribution Width 12.0, Platelet Count 164, Mean Platelet Volume 6.9, Neutrophils (%) (Auto) 70.9, Lymphocytes (%) (Auto) 16.9L, Monocytes (%) (Auto) 8.8, Eosinophils (%) (Auto) 2.5, Basophils (%) (Auto ) 0.9, Prothrombin Time 11.2, Prothromb Time International Ratio 1.1, Activated Partial Thromboplast Time 28, Sodium Level 137, Potassium Level 2.8L, Chloride Level 103, Carbon Dioxide Level 26, Anion Gap 8, Blood Urea Nitrogen 9, Creatinine 0.6, Estimat Glomerular Filtration Rate > 60, Glucose Level 137H, Calcium Level 8.3L, Phosphorus Level 2.0L, Magnesium Level 1.6L, Total Bilirubin 1.7H, Direct Bilirubin 0.7H, Aspartate Amino Transf (AST/SGOT) 28, Alanine Aminotransferase (ALT/SGPT) 34, Alkaline Phosphatase 294H, Total Protein 7.0, Albumin 2.7L, Globulin 4.3, Albumin/Globulin Ratio 0.6L Height (Feet): 5 Height (Inches): 9.00 Weight (Pounds): 179 General Appearance: no apparent distress EENT: PERRL/EOMI Neck: normal alignment Cardiovascular: tachycardia Respiratory/Chest: no respiratory distress Abdomen: soft Reid Grajeda MD Oct 27, 2017 17:25
[2017-10-27] MEDS: D5 1/2NS 1,000 ML IV SCH (17:59)
[2017-10-27 20:00] VITALS: BP 90/46
--- NOTE | 2017-10-27 20:26 | General Surgery Progress Note ---
General Surgery-Progress Note Subjective Additional Comments HIDA negative. likely mobile stone Objective Last 24 Hour Vital Signs Date Time Temp Pulse Resp B/P (MAP) Pulse Ox O2 Delivery O2 Flow Rate FiO2 10/27/17 19:29 103 15 28 10/27/17 17:05 102 15 28 10/27/17 16:00 28 10/27/17 16:00 99.1 107 15 114/88 (97) 97 99.1 10/27/17 16:00 Mechanical Ventilator 10/27/17 15:35 104 10/27/17 14:32 108 15 28 10/27/17 12:35 115 16 28 10/27/17 12:00 Mechanical Ventilator 10/27/17 12:00 99.8 117 19 124/84 (97) 97 99.8 10/27/17 12:00 28 10/27/17 11:32 133 10/27/17 11:05 117 15 28 10/27/17 09:11 99.8 10/27/17 09:08 121 19 28 10/27/17 08:41 100.7 10/27/17 08:00 99.3 123 19 125/78 (94) 97 99.3 10/27/17 08:00 28 10/27/17 08:00 123 10/27/17 08:00 Mechanical Ventilator 10/27/17 06:55 124 20 28 10/27/17 05:05 117 17 28 10/27/17 04:00 Mechanical Ventilator 10/27/17 04:00 113 10/27/17 04:00 28 10/27/17 04:00 99.1 117 19 115/76 (89) 97 99.1 10/27/17 02:55 102 22 28 10/27/17 01:06 104 19 28 10/27/17 00:00 107 10/27/17 00:00 Mechanical Ventilator 10/27/17 00:00 98.6 109 20 113/74 (87) 97 98.6 10/26/17 22:55 108 20 28 10/26/17 21:07 109 18 28 I&O Intake and Output 10/26/17 10/27/17 19:00 07:00 Intake Total 2187.500 ml 880 ml Output Total 1825 ml 1000 ml Balance 362.500 ml -120 ml Free Water 300 ml 100 ml IV Total 1167.500 ml Tube Feeding 720 ml 780 ml Output Urine Total 1825 ml 1000 ml # Bowel Movements 4 4 Dressing: saturated Wound: clean, other - improved Cardiovascular: RSR Respiratory: clear Abdomen: soft, non-tender, present bowel sounds, other - cellulitis improved. drainage improved Laboratory Tests Test 10/27/17 03:50 White Blood Count 7.2 K/UL (4.8-10.8) Red Blood Count 4.68 M/UL (4.70-6.10) L Hemoglobin 15.2 G/DL (14.2-18.0) Hematocrit 43.1 % (42.0-52.0) Mean Corpuscular Volume 92 FL (80-99) Mean Corpuscular Hemoglobin 32.4 PG (27.0-31.0) H Mean Corpuscular Hemoglobin Concent 35.2 G/DL (32.0-36.0) Red Cell Distribution Width 12.0 % (11.6-14.8) Platelet Count 164 K/UL (150-450) Mean Platelet Volume 6.9 FL (6.5-10.1) Neutrophils (%) (Auto) 70.9 % (45.0-75.0) Lymphocytes (%) (Auto) 16.9 % (20.0-45.0) L Monocytes (%) (Auto) 8.8 % (1.0-10.0) Eosinophils (%) (Auto) 2.5 % (0.0-3.0) Basophils (%) (Auto) 0.9 % (0.0-2.0) Prothrombin Time 11.2 SEC (9.30-11.50) Prothromb Time International Ratio 1.1 (0.9-1.1) Activated Partial Thromboplast Time 28 SEC (23-33) Sodium Level 137 MMOL/L (136-145) Potassium Level 2.8 MMOL/L (3.5-5.1) L Chloride Level 103 MMOL/L (98-107) Carbon Dioxide Level 26 MMOL/L (21-32) Anion Gap 8 mmol/L (5-15) Blood Urea Nitrogen 9 mg/dL (7-18) Creatinine 0.6 MG/DL (0.55-1.30) Estimat Glomerular Filtration Rate > 60 mL/min (>60) Glucose Level 137 MG/DL (74-106) H Calcium Level 8.3 MG/DL (8.5-10.1) L Phosphorus Level 2.0 MG/DL (2.5-4.9) L Magnesium Level 1.6 MG/DL (1.8-2.4) L Total Bilirubin 1.7 MG/DL (0.2-1.0) H Direct Bilirubin 0.7 MG/DL (0.0-0.3) H Aspartate Amino Transf (AST/SGOT) 28 U/L (15-37) Alanine Aminotransferase (ALT/SGPT) 34 U/L (12-78) Alkaline Phosphatase 294 U/L (46-116) H Total Protein 7.0 G/DL (6.4-8.2) Albumin 2.7 G/DL (3.4-5.0) L Globulin 4.3 g/dL Albumin/Globulin Ratio 0.6 (1.0-2.7) L Plan Problems: (1) Malfunction of gastrostomy tube Assessment & Plan: large abdominal wound from prior with g tube site open and leaking. ulceration medial and inferior noted. erythema and edema noted. no abscess cellulitis of prior g tube site large and persistent leakage of gastric contents causing ulceration elevated liver function tests ESR nml, CRP mildly elevated. US with stone vs polyp HIDA negative G tube site improved. no acute surgical intervention necessary skin protectant keep site clean dressings thank you for this consultation. (2) Gastrostomy site leak Robert Gomez Oct 27, 2017 20:26
[2017-10-28] VITALS: BP 102/76
[2017-10-28] MEDS: Acetaminophen 650mg/20.3ml NG PRN ×2 (03:57→22:14)
[2017-10-28 04:00] VITALS: BP 99/69
[2017-10-28 06:11] LABS: BASOPHILS % (AUTO) 0.8 % (0.0-2.0); EOSINOPHILS % (AUTO) 3.5 % (0.0-3.0); HEMATOCRIT 44.3 % (42.0-52.0); HEMOGLOBIN 15.2 G/DL (14.2-18.0); LYMPHOCYTES % (AUTO) 24.8 % (20.0-45.0); MEAN CORPUSCULAR VOLUME 93 FL (80-99); MONOCYTES % (AUTO) 10.3 % (1.0-10.0); NEUTROPHILS % (AUTO) 60.6 % (45.0-75.0); PLATELET COUNT 166 K/UL (150-450); RED BLOOD COUNT 4.75 M/UL (4.70-6.10); RED CELL DISTRIBUTION WIDTH 12.3 % (11.6-14.8); WHITE BLOOD COUNT 5.1 K/UL (4.8-10.8)
[2017-10-28] MEDS: Vancomycin 1gm/D5W 275ml IVPB SCH ×4 (06:13→18:15)
[2017-10-28] MEDS: Piperacillin/Tazobactam 3.375 GM in D5W 110 ML IVPB SCH ×3 (06:14→21:38)
[2017-10-28 06:51] LABS: ALANINE AMINOTRANSFERASE 37 U/L (12-78); ALBUMIN 2.5 G/DL (3.4-5.0); ALBUMIN/GLOBULIN RATIO 0.5 (1.0-2.7); ALKALINE PHOSPHATASE 286 U/L (46-116); ANION GAP 9 mmol/L (5-15); ASPARTATE AMINO TRANSFERASE 40 U/L (15-37); BILIRUBIN,TOTAL 1.4 MG/DL (0.2-1.0); BLOOD UREA NITROGEN 11 mg/dL (7-18); CARBON DIOXIDE 27 MMOL/L (21-32); CHLORIDE 105 MMOL/L (98-107); CREATININE 0.6 MG/DL (0.55-1.30); POTASSIUM 3.4 MMOL/L (3.5-5.1); SODIUM 141 MMOL/L (136-145)
[2017-10-28 07:18] LABS: BILIRUBIN,DIRECT 0.7 MG/DL (0.0-0.3)
--- NOTE | 2017-10-28 07:30 | Infectious Diseases Prog Note ---
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 pneumo) - S/P new Gtube 10/22/17 Afebrile, no leukocytosis chronic resp failure s/p trach dysphagia s/p [facility] resident Plan: - Continue Zosyn #09/30 and Vancomycin #7/ -Monitor CBC/CMP, temperatures -aspiration precautions -wound care per hosp protocol Thank you for this consultation. Will continue to follow along with you. Subjective Allergies: Coded Allergies: SULFAMETHOXAZOLE (Verified Allergy, Unknown, 10/18/17) TRIMETHOPRIM (Verified Allergy, Unknown, 10/18/17) Subjective No Acute everts. Nonverbal but interactive asking questions Low grade fever last night with no leukocytosis Objective Vital Signs Last 24 Hour Vital Signs Date Time Temp Pulse Resp B/P (MAP) Pulse Ox O2 Delivery O2 Flow Rate FiO2 10/28/17 06:30 104 21 30 10/28/17 04:33 105 20 30 10/28/17 04:27 98.4 10/28/17 04:00 Mechanical Ventilator 10/28/17 04:00 100.6 115 17 99/69 (79) 98 100.6 10/28/17 04:00 28 10/28/17 04:00 28 10/28/17 04:00 127 10/28/17 03:57 100.6 10/28/17 02:57 108 16 28 10/28/17 01:11 105 22 28 10/28/17 00:00 98.8 117 18 102/76 (85) 98 98.8 10/28/17 00:00 28 10/28/17 00:00 Mechanical Ventilator 10/28/17 00:00 110 10/27/17 23:27 107 16 28 10/27/17 20:43 102 16 28 10/27/17 20:00 104 10/27/17 20:00 Mechanical Ventilator 10/27/17 20:00 98.6 98 16 90/46 (61) 99 98.6 10/27/17 20:00 28 10/27/17 19:29 103 15 28 10/27/17 17:05 102 15 28 10/27/17 16:00 28 10/27/17 16:00 99.1 107 15 114/88 (97) 97 99.1 10/27/17 16:00 Mechanical Ventilator 10/27/17 15:35 104 10/27/17 14:32 108 15 28 10/27/17 12:35 115 16 28 10/27/17 12:00 Mechanical Ventilator 10/27/17 12:00 99.8 117 19 124/84 (97) 97 99.8 10/27/17 12:00 28 10/27/17 11:32 133 10/27/17 11:05 117 15 28 10/27/17 09:08 121 19 28 10/27/17 08:41 100.7 10/27/17 08:00 99.3 123 19 125/78 (94) 97 99.3 10/27/17 08:00 28 10/27/17 08:00 123 10/27/17 08:00 Mechanical Ventilator Height (Feet): 5 Height (Inches): 9.00 Weight (Pounds): 179 Objective General: NAD HEENT: NCAT, MMM, anicteric, Trached Respiratory/Chest: CTAB, No wheezing, Cardiovascular/Chest: normal peripheral pulses, normal rate, Abdomen: soft, nt, nd, - G tube site with dressing in place no purulent drainage Skin Exam: warm/dry, Neurologic: abnormal gait - bedridden , other - awake, responds with eyes and nodding , quadriplegia Musculoskeletal: atrophy - BLE Laboratory Tests Test 10/28/17 04:54 White Blood Count 5.1 K/UL (4.8-10.8) Red Blood Count 4.75 M/UL (4.70-6.10) Hemoglobin 15.2 G/DL (14.2-18.0) Hematocrit 44.3 % (42.0-52.0) Mean Corpuscular Volume 93 FL (80-99) Mean Corpuscular Hemoglobin 32.0 PG (27.0-31.0) H Mean Corpuscular Hemoglobin Concent 34.3 G/DL (32.0-36.0) Red Cell Distribution Width 12.3 % (11.6-14.8) Platelet Count 166 K/UL (150-450) Mean Platelet Volume 6.8 FL (6.5-10.1) Neutrophils (%) (Auto) 60.6 % (45.0-75.0) Lymphocytes (%) (Auto) 24.8 % (20.0-45.0) Monocytes (%) (Auto) 10.3 % (1.0-10.0) H Eosinophils (%) (Auto) 3.5 % (0.0-3.0) H Basophils (%) (Auto) 0.8 % (0.0-2.0) Sodium Level 141 MMOL/L (136-145) Potassium Level 3.4 MMOL/L (3.5-5.1) L Chloride Level 105 MMOL/L (98-107) Carbon Dioxide Level 27 MMOL/L (21-32) Anion Gap 9 mmol/L (5-15) Blood Urea Nitrogen 11 mg/dL (7-18) Creatinine 0.6 MG/DL (0.55-1.30) Estimat Glomerular Filtration Rate > 60 mL/min (>60) Glucose Level 158 MG/DL (74-106) H Calcium Level 8.0 MG/DL (8.5-10.1) L Phosphorus Level 4.0 MG/DL (2.5-4.9) Magnesium Level 2.2 MG/DL (1.8-2.4) Total Bilirubin 1.4 MG/DL (0.2-1.0) H Direct Bilirubin 0.7 MG/DL (0.0-0.3) H Aspartate Amino Transf (AST/SGOT) 40 U/L (15-37) H Alanine Aminotransferase (ALT/SGPT) 37 U/L (12-78) Alkaline Phosphatase 286 U/L (46-116) H Total Protein 7.1 G/DL (6.4-8.2) Albumin 2.5 G/DL (3.4-5.0) L Globulin 4.6 g/dL Albumin/Globulin Ratio 0.5 (1.0-2.7) L Current Medications Medications (Trade) Dose Ordered Sig/Vicenta Route PRN Reason Start Time Stop Time Status Last Admin Dose Admin Acetaminophen (Tylenol) 650 mg Q4H PRN NG T>100.5 10/22/17 17:00 11/19/17 16:59 10/28/17 03:57 Acetaminophen/ Hydrocodone Bitart ([place] 5/325) 1 tab Q6H PRN ORAL For Pain 10/27/17 11:15 11/03/17 11:14 10/27/17 11:56 Artificial Tears (Akwa-Tears) 1 drop Q6H PRN BOTH EYES dry eyes 10/22/17 17:15 11/17/17 05:14 10/28/17 06:14 Dextrose/Sodium Chloride 1,000 ml @ 50 mls/hr Q20H IV 10/22/17 17:30 11/16/17 17:29 10/27/17 17:59 Levetiracetam 100 ml @ 400 mls/hr Q12HR IVPB 10/22/17 21:00 11/18/17 09:59 10/27/17 21:01 Lorazepam (Ativan 2mg/ml 1ml) 2 mg Q2H PRN IV For Seizures 10/27/17 11:15 11/03/17 11:14 Ondansetron HCl (Zofran) 4 mg Q6H PRN IVP Nausea & Vomiting 10/22/17 17:00 11/16/17 16:59 Pantoprazole (Protonix) 40 mg DAILY IVP 10/23/17 09:00 11/19/17 12:35 10/27/17 09:42 Piperacillin Sod/ Tazobactam Sod 3.375 gm/Dextrose 110 ml @ 27.5 mls/hr EVERY 8 HOURS IVPB 10/22/17 22:00 10/31/17 21:59 10/28/17 06:14 Vancomycin HCl (Vanco rx to dose) [address] [facility] 10/23/17 17:15 11/22/17 17:14 Vancomycin HCl 1 gm/Dextrose 275 ml @ 183.708 mls/hr Q12H IVPB 10/25/17 06:00 10/30/17 05:59 10/28/17 06:13 Nikita Mobley M.D. Oct 28, 2017 07:30
[2017-10-28 08:00] VITALS: BP 95/47
[2017-10-28] MEDS: Pantoprazole Inj IVP SCH (08:38)
[2017-10-28] MEDS: levETIRAcetam 500mg/NS100ml 100 ML IVPB SCH ×2 (08:38→21:38)
--- NOTE | 2017-10-28 10:41 | Pulmonolgy Critical Care Note ---
Critical Care - Asmt/Plan Problems: (1) Sepsis (2) Chronic respiratory failure (3) Gastrostomy site leak (4) Seizures (5) Quadriplegia Respiratory: monitor respiratory rate, adjust FIO2, CXR Cardiac: continue to monitor HR/BP Renal: F/U I&O Infectious Disease: check cultures Gastrointestinal: continue feedings/current rate Endocrine: check TSH, check HgA1C Neurologic: PRN Morphine Prophylaxis: Heparin Notes Reviewed: renal Discussed with: child welfare caseworkertelegraph office manager - Objective Last 24 Hour Vital Signs Date Time Temp Pulse Resp B/P (MAP) Pulse Ox O2 Delivery O2 Flow Rate FiO2 10/28/17 08:48 97 21 30 10/28/17 08:00 28 10/28/17 08:00 97.5 95 15 95/47 (63) 96 97.5 10/28/17 08:00 Mechanical Ventilator 10/28/17 08:00 99 10/28/17 06:30 104 21 30 10/28/17 04:33 105 20 30 10/28/17 04:27 98.4 10/28/17 04:00 Mechanical Ventilator 10/28/17 04:00 100.6 115 17 99/69 (79) 98 100.6 10/28/17 04:00 28 10/28/17 04:00 28 10/28/17 04:00 127 10/28/17 03:57 100.6 10/28/17 02:57 108 16 28 10/28/17 01:11 105 22 28 10/28/17 00:00 98.8 117 18 102/76 (85) 98 98.8 10/28/17 00:00 28 10/28/17 00:00 Mechanical Ventilator 10/28/17 00:00 110 10/27/17 23:27 107 16 28 10/27/17 20:43 102 16 28 10/27/17 20:00 104 10/27/17 20:00 Mechanical Ventilator 10/27/17 20:00 98.6 98 16 90/46 (61) 99 98.6 10/27/17 20:00 28 10/27/17 19:29 103 15 28 10/27/17 17:05 102 15 28 10/27/17 16:00 28 10/27/17 16:00 99.1 107 15 114/88 (97) 97 99.1 10/27/17 16:00 Mechanical Ventilator 10/27/17 15:35 104 10/27/17 14:32 108 15 28 10/27/17 12:35 115 16 28 10/27/17 12:00 Mechanical Ventilator 10/27/17 12:00 99.8 117 19 124/84 (97) 97 99.8 10/27/17 12:00 28 10/27/17 11:32 133 10/27/17 11:05 117 15 28 Status: sedated Condition: critical HEENT: atraumatic Neck: full ROM Lungs: clear Heart: HR/BP stable, HR/BP unstable Abdomen: non-tender Extremities: edema Critical Care - Subjective ROS Limited/Unobtainable: No Condition: critical EKG Rhythm: Sinus Rhythm FI02: 30 Vent Support Breath Rate: 15 Vent Support Mode: AC Vent Tidal Volume: 500 Sputum Amount: Moderate PEEP: 0.0 PIP: 33 Tube Feeding Amount: 60 I&O: Intake and Output 10/27/17 10/28/17 19:00 07:00 Intake Total 590 ml 1733.708 ml Output Total 920 ml 1300 ml Balance -330 ml 433.708 ml Free Water 170 ml 50 ml IV Total 963.708 ml Tube Feeding 420 ml 720 ml Output Urine Total 920 ml 1300 ml # Bowel Movements 2 2 Labs: Laboratory Tests Test 10/28/17 04:54 White Blood Count 5.1 K/UL (4.8-10.8) Red Blood Count 4.75 M/UL (4.70-6.10) Hemoglobin 15.2 G/DL (14.2-18.0) Hematocrit 44.3 % (42.0-52.0) Mean Corpuscular Volume 93 FL (80-99) Mean Corpuscular Hemoglobin 32.0 PG (27.0-31.0) H Mean Corpuscular Hemoglobin Concent 34.3 G/DL (32.0-36.0) Red Cell Distribution Width 12.3 % (11.6-14.8) Platelet Count 166 K/UL (150-450) Mean Platelet Volume 6.8 FL (6.5-10.1) Neutrophils (%) (Auto) 60.6 % (45.0-75.0) Lymphocytes (%) (Auto) 24.8 % (20.0-45.0) Monocytes (%) (Auto) 10.3 % (1.0-10.0) H Eosinophils (%) (Auto) 3.5 % (0.0-3.0) H Basophils (%) (Auto) 0.8 % (0.0-2.0) Sodium Level 141 MMOL/L (136-145) Potassium Level 3.4 MMOL/L (3.5-5.1) L Chloride Level 105 MMOL/L (98-107) Carbon Dioxide Level 27 MMOL/L (21-32) Anion Gap 9 mmol/L (5-15) Blood Urea Nitrogen 11 mg/dL (7-18) Creatinine 0.6 MG/DL (0.55-1.30) Estimat Glomerular Filtration Rate > 60 mL/min (>60) Glucose Level 158 MG/DL (74-106) H Calcium Level 8.0 MG/DL (8.5-10.1) L Phosphorus Level 4.0 MG/DL (2.5-4.9) Magnesium Level 2.2 MG/DL (1.8-2.4) Total Bilirubin 1.4 MG/DL (0.2-1.0) H Direct Bilirubin 0.7 MG/DL (0.0-0.3) H Aspartate Amino Transf (AST/SGOT) 40 U/L (15-37) H Alanine Aminotransferase (ALT/SGPT) 37 U/L (12-78) Alkaline Phosphatase 286 U/L (46-116) H Total Protein 7.1 G/DL (6.4-8.2) Albumin 2.5 G/DL (3.4-5.0) L Globulin 4.6 g/dL Albumin/Globulin Ratio 0.5 (1.0-2.7) L Mellissa Garcia MD Oct 28, 2017 10:41
[2017-10-28 12:00] VITALS: BP 141/85
[2017-10-28] MEDS: D5 1/2NS 1,000 ML IV SCH (13:30)
--- NOTE | 2017-10-28 13:51 | GI Progress Note ---
Assessment/Plan Problems: (1) Malfunction of gastrostomy tube ICD Codes: K94.23 - Gastrostomy malfunction SNOMED: 513203592 (2) Sepsis ICD Codes: A41.9 - Sepsis, unspecified organism SNOMED: 71585108 (3) Gastrostomy site leak ICD Codes: K94.23 - Gastrostomy malfunction SNOMED: 712899073 (4) Seizures ICD Codes: R56.9 - Unspecified convulsions SNOMED: 85343195 Status: stable Status Narrative Discussed with Dr. Lehman. Assessment/Plan s/p J tube placement GT site cellulitis hepatitis panel negative no anemia supportive care GT site care TID, would care per surgical GTFs per RD electrolyte correction zofran prn abx per ID trend LFTs fu labs dc planning The patient was seen and examined at bedside and all new and available data was reviewed in the patients chart. I agree with the above findings, impression and plan. (Patient seen earlier today. Signature stamp does not reflect patient encounter time.). - Kvng Lehman MD Subjective Subjective limited Objective Last 24 Hour Vital Signs Date Time Temp Pulse Resp B/P (MAP) Pulse Ox O2 Delivery O2 Flow Rate FiO2 10/28/17 13:03 111 22 30 10/28/17 10:30 99 20 30 10/28/17 08:48 97 21 30 10/28/17 08:00 28 10/28/17 08:00 97.5 95 15 95/47 (63) 96 97.5 10/28/17 08:00 Mechanical Ventilator 10/28/17 08:00 99 10/28/17 06:30 104 21 30 10/28/17 04:33 105 20 30 10/28/17 04:27 98.4 10/28/17 04:00 Mechanical Ventilator 10/28/17 04:00 100.6 115 17 99/69 (79) 98 100.6 10/28/17 04:00 28 10/28/17 04:00 28 10/28/17 04:00 127 10/28/17 03:57 100.6 10/28/17 02:57 108 16 28 10/28/17 01:11 105 22 28 10/28/17 00:00 98.8 117 18 102/76 (85) 98 98.8 10/28/17 00:00 28 10/28/17 00:00 Mechanical Ventilator 10/28/17 00:00 110 10/27/17 23:27 107 16 28 10/27/17 20:43 102 16 28 10/27/17 20:00 104 10/27/17 20:00 Mechanical Ventilator 10/27/17 20:00 98.6 98 16 90/46 (61) 99 98.6 10/27/17 20:00 28 10/27/17 19:29 103 15 28 10/27/17 17:05 102 15 28 10/27/17 16:00 28 10/27/17 16:00 99.1 107 15 114/88 (97) 97 99.1 10/27/17 16:00 Mechanical Ventilator 10/27/17 15:35 104 10/27/17 14:32 108 15 28 Intake and Output 10/27/17 10/28/17 19:00 07:00 Intake Total 590 ml 1733.708 ml Output Total 920 ml 1300 ml Balance -330 ml 433.708 ml Free Water 170 ml 50 ml IV Total 963.708 ml Tube Feeding 420 ml 720 ml Output Urine Total 920 ml 1300 ml # Bowel Movements 2 2 Laboratory Tests Test 10/28/17 04:54 White Blood Count 5.1 K/UL (4.8-10.8) Red Blood Count 4.75 M/UL (4.70-6.10) Hemoglobin 15.2 G/DL (14.2-18.0) Hematocrit 44.3 % (42.0-52.0) Mean Corpuscular Volume 93 FL (80-99) Mean Corpuscular Hemoglobin 32.0 PG (27.0-31.0) H Mean Corpuscular Hemoglobin Concent 34.3 G/DL (32.0-36.0) Red Cell Distribution Width 12.3 % (11.6-14.8) Platelet Count 166 K/UL (150-450) Mean Platelet Volume 6.8 FL (6.5-10.1) Neutrophils (%) (Auto) 60.6 % (45.0-75.0) Lymphocytes (%) (Auto) 24.8 % (20.0-45.0) Monocytes (%) (Auto) 10.3 % (1.0-10.0) H Eosinophils (%) (Auto) 3.5 % (0.0-3.0) H Basophils (%) (Auto) 0.8 % (0.0-2.0) Sodium Level 141 MMOL/L (136-145) Potassium Level 3.4 MMOL/L (3.5-5.1) L Chloride Level 105 MMOL/L (98-107) Carbon Dioxide Level 27 MMOL/L (21-32) Anion Gap 9 mmol/L (5-15) Blood Urea Nitrogen 11 mg/dL (7-18) Creatinine 0.6 MG/DL (0.55-1.30) Estimat Glomerular Filtration Rate > 60 mL/min (>60) Glucose Level 158 MG/DL (74-106) H Calcium Level 8.0 MG/DL (8.5-10.1) L Phosphorus Level 4.0 MG/DL (2.5-4.9) Magnesium Level 2.2 MG/DL (1.8-2.4) Total Bilirubin 1.4 MG/DL (0.2-1.0) H Direct Bilirubin 0.7 MG/DL (0.0-0.3) H Aspartate Amino Transf (AST/SGOT) 40 U/L (15-37) H Alanine Aminotransferase (ALT/SGPT) 37 U/L (12-78) Alkaline Phosphatase 286 U/L (46-116) H Total Protein 7.1 G/DL (6.4-8.2) Albumin 2.5 G/DL (3.4-5.0) L Globulin 4.6 g/dL Albumin/Globulin Ratio 0.5 (1.0-2.7) L Height (Feet): 5 Height (Inches): 9.00 Weight (Pounds): 179 General Appearance: no apparent distress Cardiovascular: normal rate Respiratory/Chest: normal breath sounds, no respiratory distress Abdominal Exam: soft, other - J tube Daisy Bernstein NP Oct 28, 2017 13:51
[2017-10-28] MEDS ORDERED: Tubing IV Secondary IV ONE (14:19)
[2017-10-28] MEDS ORDERED: 1/2 NS 1000ml IV ONE (14:19)
[2017-10-28] MEDS ORDERED: Lidocaine 1% Plain 30 ml INJ ONE (14:45)
[2017-10-28] MEDS ORDERED: Heparin 2000 units/Ns 1000ml INJ SCH (14:45)
--- NOTE | 2017-10-28 15:08 | General Progress Note ---
Assessment/Plan Status: unchanged Assessment/Plan #. Leukocytosis, secondary to underlying dehydration, to closely monitor for improvement. Also 2/2 recent intubation --> Continue to closely monitor. --> 10/27: wbc 5.1 wnl --> Pt remains on IV abx. ID follow up. #. Thrombocytopenia - potentially related to infection. --> hep and hiv are both negative --> smear reviewed, no schitocytes --> no recent heparin administration --> 10/27: PLT of 166, wnl. --> 10/27: HIDA scan negative. #. Hyperproteinemia. Obtain serum protein electrophoresis. #. G-tube malfunction, referred to gastrointestinal team. #. Chronic respiratory failure, status post intubation/trach. #. Erythema around the G-tube site with potential cellulitis, has been seen by ID Service. --> Cultures: Gram + cocci --> Pt on IV abx. Appreciate id recs #. Seizure disorder - to see neuro prnl --> ativan prn and keprra The time the note was entered does not necessarily correspond to the time the patient was seen. Subjective Date patient seen: Oct 28, 2017 ROS Limited/Unobtainable: Yes Allergies: Coded Allergies: SULFAMETHOXAZOLE (Verified Allergy, Unknown, 10/18/17) TRIMETHOPRIM (Verified Allergy, Unknown, 10/18/17) All Systems: reviewed and negative except above Subjective Pt remains on vent. No acute events. PICC line pending. Objective Last 24 Hour Vital Signs Date Time Temp Pulse Resp B/P (MAP) Pulse Ox O2 Delivery O2 Flow Rate FiO2 10/28/17 13:03 111 22 30 10/28/17 12:00 Mechanical Ventilator 10/28/17 12:00 97.9 117 17 141/85 (103) 95 97.9 10/28/17 12:00 105 10/28/17 12:00 28 10/28/17 10:30 99 20 30 10/28/17 08:48 97 21 30 10/28/17 08:00 28 10/28/17 08:00 97.5 95 15 95/47 (63) 96 97.5 10/28/17 08:00 Mechanical Ventilator 10/28/17 08:00 99 10/28/17 06:30 104 21 30 10/28/17 04:33 105 20 30 10/28/17 04:27 98.4 10/28/17 04:00 Mechanical Ventilator 10/28/17 04:00 100.6 115 17 99/69 (79) 98 100.6 10/28/17 04:00 28 10/28/17 04:00 28 10/28/17 04:00 127 10/28/17 03:57 100.6 10/28/17 02:57 108 16 28 10/28/17 01:11 105 22 28 10/28/17 00:00 98.8 117 18 102/76 (85) 98 98.8 10/28/17 00:00 28 10/28/17 00:00 Mechanical Ventilator 10/28/17 00:00 110 10/27/17 23:27 107 16 28 10/27/17 20:43 102 16 28 10/27/17 20:00 104 10/27/17 20:00 Mechanical Ventilator 10/27/17 20:00 98.6 98 16 90/46 (61) 99 98.6 10/27/17 20:00 28 10/27/17 19:29 103 15 28 10/27/17 17:05 102 15 28 10/27/17 16:00 28 10/27/17 16:00 99.1 107 15 114/88 (97) 97 99.1 10/27/17 16:00 Mechanical Ventilator 10/27/17 15:35 104 Intake and Output 10/27/17 10/28/17 19:00 07:00 Intake Total 590 ml 1733.708 ml Output Total 920 ml 1300 ml Balance -330 ml 433.708 ml Free Water 170 ml 50 ml IV Total 963.708 ml Tube Feeding 420 ml 720 ml Output Urine Total 920 ml 1300 ml # Bowel Movements 2 2 Laboratory Tests 10/28/17 04:54: White Blood Count 5.1, Red Blood Count 4.75, Hemoglobin 15.2, Hematocrit 44.3, Mean Corpuscular Volume 93, Mean Corpuscular Hemoglobin 32.0H, Mean Corpuscular Hemoglobin Concent 34.3, Red Cell Distribution Width 12.3, Platelet Count 166, Mean Platelet Volume 6.8, Neutrophils (%) (Auto) 60.6, Lymphocytes (%) (Auto) 24.8, Monocytes (%) (Auto) 10.3H, Eosinophils (%) (Auto) 3.5H, Basophils (%) ( Auto) 0.8, Sodium Level 141, Potassium Level 3.4L, Chloride Level 105, Carbon Dioxide Level 27, Anion Gap 9, Blood Urea Nitrogen 11, Creatinine 0.6, Estimat Glomerular Filtration Rate > 60, Glucose Level 158H, Calcium Level 8.0L, Phosphorus Level 4.0, Magnesium Level 2.2, Total Bilirubin 1.4H, Direct Bilirubin 0.7H, Aspartate Amino Transf (AST/SGOT) 40H, Alanine Aminotransferase (ALT/SGPT) 37, Alkaline Phosphatase 286H, Total Protein 7.1, Albumin 2.5L, Globulin 4.6, Albumin/Globulin Ratio 0.5L Height (Feet): 5 Height (Inches): 9.00 Weight (Pounds): 179 General Appearance: no apparent distress EENT: PERRL/EOMI Neck: normal alignment Cardiovascular: tachycardia, irregularly irregular Respiratory/Chest: no respiratory distress Abdomen: soft Reid Grajeda MD Oct 28, 2017 15:08
--- NOTE | 2017-10-28 15:35 | Cardiology Progress Note ---
Assessment/Plan Status: stable Assessment/Plan Assessment: (1) Sepsis (2) Chronic respiratory failure (3) Gastrostomy site leak (4) Seizures (5) Quadriplegia Plan: Continue wound care Trach care/G tube care Supportive care Continue keppra for seizures No indication for cardiac cath Stress test when stable Continue antibiotics for ten days per ID Sinus tachycardia noted, no treatment needed Dispo planning Subjective Cardiovascular: Reports: no symptoms Respiratory: Reports: no symptoms Gastrointestinal/Abdominal: Reports: no symptoms Genitourinary: Reports: no symptoms Subjective No acute events, afebrile, tachycardic, on vent, receiving g tube feeds. Abx running. HIDA scan negative. Chest x ray with Minimal left basilar atelectasis. Equivocal trace right pleural effusion Objective Last 24 Hour Vital Signs Date Time Temp Pulse Resp B/P (MAP) Pulse Ox O2 Delivery O2 Flow Rate FiO2 10/28/17 14:30 118 21 30 10/28/17 13:03 111 22 30 10/28/17 12:00 Mechanical Ventilator 10/28/17 12:00 97.9 117 17 141/85 (103) 95 97.9 10/28/17 12:00 105 10/28/17 12:00 28 10/28/17 10:30 99 20 30 10/28/17 08:48 97 21 30 10/28/17 08:00 28 10/28/17 08:00 97.5 95 15 95/47 (63) 96 97.5 10/28/17 08:00 Mechanical Ventilator 10/28/17 08:00 99 10/28/17 06:30 104 21 30 10/28/17 04:33 105 20 30 10/28/17 04:27 98.4 10/28/17 04:00 Mechanical Ventilator 10/28/17 04:00 100.6 115 17 99/69 (79) 98 100.6 10/28/17 04:00 28 10/28/17 04:00 28 10/28/17 04:00 127 10/28/17 03:57 100.6 10/28/17 02:57 108 16 28 10/28/17 01:11 105 22 28 10/28/17 00:00 98.8 117 18 102/76 (85) 98 98.8 10/28/17 00:00 28 10/28/17 00:00 Mechanical Ventilator 10/28/17 00:00 110 10/27/17 23:27 107 16 28 10/27/17 20:43 102 16 28 10/27/17 20:00 104 10/27/17 20:00 Mechanical Ventilator 10/27/17 20:00 98.6 98 16 90/46 (61) 99 98.6 10/27/17 20:00 28 10/27/17 19:29 103 15 28 10/27/17 17:05 102 15 28 10/27/17 16:00 28 10/27/17 16:00 99.1 107 15 114/88 (97) 97 99.1 10/27/17 16:00 Mechanical Ventilator 10/27/17 15:35 104 General Appearance: no apparent distress, alert EENT: PERRL/EOMI, normal ENT inspection Neck: non-tender, normal alignment, supple, normal inspection, no JVD Rhythm: NSR Cardiovascular: normal peripheral pulses, normal rate, regular rhythm Respiratory/Chest: chest wall non-tender, lungs clear Abdomen: normal bowel sounds, non tender, hyperactive bowel sounds Extremities: non-tender Neurologic: hand clerical verifier II-XII grossly normal Intake and Output 10/27/17 10/28/17 19:00 07:00 Intake Total 590 ml 1733.708 ml Output Total 920 ml 1300 ml Balance -330 ml 433.708 ml Free Water 170 ml 50 ml IV Total 963.708 ml Tube Feeding 420 ml 720 ml Output Urine Total 920 ml 1300 ml # Bowel Movements 2 2 Laboratory Tests Test 10/28/17 04:54 White Blood Count 5.1 K/UL (4.8-10.8) Red Blood Count 4.75 M/UL (4.70-6.10) Hemoglobin 15.2 G/DL (14.2-18.0) Hematocrit 44.3 % (42.0-52.0) Mean Corpuscular Volume 93 FL (80-99) Mean Corpuscular Hemoglobin 32.0 PG (27.0-31.0) H Mean Corpuscular Hemoglobin Concent 34.3 G/DL (32.0-36.0) Red Cell Distribution Width 12.3 % (11.6-14.8) Platelet Count 166 K/UL (150-450) Mean Platelet Volume 6.8 FL (6.5-10.1) Neutrophils (%) (Auto) 60.6 % (45.0-75.0) Lymphocytes (%) (Auto) 24.8 % (20.0-45.0) Monocytes (%) (Auto) 10.3 % (1.0-10.0) H Eosinophils (%) (Auto) 3.5 % (0.0-3.0) H Basophils (%) (Auto) 0.8 % (0.0-2.0) Sodium Level 141 MMOL/L (136-145) Potassium Level 3.4 MMOL/L (3.5-5.1) L Chloride Level 105 MMOL/L (98-107) Carbon Dioxide Level 27 MMOL/L (21-32) Anion Gap 9 mmol/L (5-15) Blood Urea Nitrogen 11 mg/dL (7-18) Creatinine 0.6 MG/DL (0.55-1.30) Estimat Glomerular Filtration Rate > 60 mL/min (>60) Glucose Level 158 MG/DL (74-106) H Calcium Level 8.0 MG/DL (8.5-10.1) L Phosphorus Level 4.0 MG/DL (2.5-4.9) Magnesium Level 2.2 MG/DL (1.8-2.4) Total Bilirubin 1.4 MG/DL (0.2-1.0) H Direct Bilirubin 0.7 MG/DL (0.0-0.3) H Aspartate Amino Transf (AST/SGOT) 40 U/L (15-37) H Alanine Aminotransferase (ALT/SGPT) 37 U/L (12-78) Alkaline Phosphatase 286 U/L (46-116) H Total Protein 7.1 G/DL (6.4-8.2) Albumin 2.5 G/DL (3.4-5.0) L Globulin 4.6 g/dL Albumin/Globulin Ratio 0.5 (1.0-2.7) L Nikita Reddy M.D. Oct 28, 2017 15:35
[2017-10-28 16:00] VITALS: BP 106/52
--- NOTE | 2017-10-28 16:27 | Pre-Procedure Note/Attestation ---
Pre-Procedure Note/Attestation Complete Prior to Procedure Planned Procedure: not applicable Procedure Narrative: PICC line Indications for Procedure Pre-Operative Diagnosis: need iv access Attestation Informed consent obtained prior to the procedure. This was confirmed prior to PICC line placement during the standard time-out. I attest that I re-evaluated the patient just prior to the surgery and that there has been no change in the patient's H&P, except as documented below: Pedrito Matthews M.D. Oct 28, 2017 16:27
--- NOTE | 2017-10-28 16:39 | Diagnostic Imaging Report ---
Indications: Needs long-term IV access Technique: Procedure performed at bedside. Procedural timeout performed. Ultrasound confirms patent compressible right basilic vein. Total sterile technique, including sterile probe cover and sterile gel, sterile gloves, hand hygiene, hat, mask,, sterile gown, large sterile drape, and preparation with 2% chlorhexidine utilized. Local anesthesia with 1% lidocaine. Under real-time ultrasound guidance, puncture the basilic vein using 21-gauge needle, passage 0.018 guidewire, exchange for 5 [place] peel-away sheath. 5 [place] dual-lumen power PICC cut to 33 cm. It was inserted through the peel-away sheath. Peel-away sheath and guidewire removed. Catheter fixed to the skin. Both catheter ports aspirated and flushed. Patient tolerated procedure well, without immediate complication. Followup chest x-ray obtained, documents catheter tip position at the lower superior vena cava. Additional chest x-ray findings demonstrate tracheostomy tube in place. Heart size and mediastinal contours stable. There is development of a hazy opacity at the right lung base concerning for developing infiltrate. Impression: Successful bedside placement of 5 [place], double-lumen PICC under sonographic guidance, as described above. Apparent hazy infiltrate at the right base, new from the prior exam. Developing infectious infiltrate not excluded. Clinical correlation and follow-up exam recommended.
[2017-10-28 20:00] VITALS: BP 103/67
[2017-10-28] MEDS: Dyna-Hex 2% Top Sol 2oz TOPIC SCH (21:38)
--- NOTE | 2017-10-28 22:00 | Consultation ---
DATE OF CONSULTATION: 10/28/2017 REASON FOR CONSULTATION: Gross hematuria. HISTORY OF PRESENT ILLNESS: The patient is a 56-year-old male with history of respiratory failure, tracheostomy, G-tube, having episode of hematuria. He has multiple medical problems and was undergoing multiple different evaluations and procedures. He recently developed . PAST MEDICAL HISTORY: In the chart, reviewed. MEDICATION HISTORY: Reviewed. The patient is on acetaminophen, ascorbic acid, atorvastatin, baclofen, docusate sodium, famotidine, and gabapentin. REVIEW OF SYMPTOMS: Difficult due to poor communication with the patient. PHYSICAL EXAM: VITAL SIGNS: He is afebrile. Vital signs stable. LUNGS: Clear. CARDIOVASCULAR: Regular rate and rhythm. ABDOMEN: Somewhat distended. G-tube in place. Suprapubic area is intact. Normal bowel sounds. GENITOURINARY: Minimum hematuria in the Dietrich bag. LABORATORY DATA: Reviewed, showing white count of 4.1, hematocrit is 32, and creatinine is 0.6. Abdominal x-ray was done on 10/20/2017 showing nasogastric tube, normal gas pattern, and no evidence of kidney stones. ASSESSMENT AND PLAN: Mild gross hematuria. I would continue hydration and observation and intermittent flushing of the Dietrich catheter. I will follow this patient with you. Jeremiah Maldonado M.D. DR: BRITANY JOB#: [id number] CC:
[2017-10-29] VITALS: BP 112/65
[2017-10-29 04:00] VITALS: BP 112/65
[2017-10-29 04:56] LABS: BASOPHILS % (AUTO) 0.9 % (0.0-2.0); EOSINOPHILS % (AUTO) 3.8 % (0.0-3.0); HEMATOCRIT 40.4 % (42.0-52.0); HEMOGLOBIN 13.6 G/DL (14.2-18.0); LYMPHOCYTES % (AUTO) 25.6 % (20.0-45.0); MEAN CORPUSCULAR VOLUME 93 FL (80-99); MONOCYTES % (AUTO) 8.6 % (1.0-10.0); NEUTROPHILS % (AUTO) 61.1 % (45.0-75.0); PLATELET COUNT 186 K/UL (150-450); RED BLOOD COUNT 4.37 M/UL (4.70-6.10); RED CELL DISTRIBUTION WIDTH 12.1 % (11.6-14.8); WHITE BLOOD COUNT 6.7 K/UL (4.8-10.8)
[2017-10-29 05:11] LABS: ALANINE AMINOTRANSFERASE 34 U/L (12-78); ALBUMIN 2.3 G/DL (3.4-5.0); ALBUMIN/GLOBULIN RATIO 0.5 (1.0-2.7); ALKALINE PHOSPHATASE 269 U/L (46-116); ANION GAP 6 mmol/L (5-15); ASPARTATE AMINO TRANSFERASE 31 U/L (15-37); BILIRUBIN,TOTAL 1.4 MG/DL (0.2-1.0); BLOOD UREA NITROGEN 14 mg/dL (7-18); CARBON DIOXIDE 28 MMOL/L (21-32); CHLORIDE 104 MMOL/L (98-107); CREATININE 0.6 MG/DL (0.55-1.30); PHOSPHORUS 2.4 MG/DL (2.5-4.9); SODIUM 138 MMOL/L (136-145)
[2017-10-29 05:35] LABS: BILIRUBIN,DIRECT 0.7 MG/DL (0.0-0.3)
[2017-10-29] MEDS: Piperacillin/Tazobactam 3.375 GM in D5W 110 ML IVPB SCH ×3 (06:06→21:37)
[2017-10-29] MEDS: Vancomycin 1gm/D5W 275ml IVPB SCH ×4 (06:06→18:16)
--- NOTE | 2017-10-29 06:31 | General Progress Note ---
Assessment/Plan Assessment/Plan #. Leukocytosis, secondary to underlying dehydration, to closely monitor for improvement. Also 2/2 recent intubation --> Continue to closely monitor. --> 10/27: wbc 5.1 wnl --> Pt remains on IV abx. ID follow up. #. Thrombocytopenia - potentially related to infection. has improved --> hep and hiv are both negative --> smear reviewed, no schitocytes --> no recent heparin administration --> 10/27: HIDA scan negative. #. Hyperproteinemia. protein elevated on admission --> spep has been reviewed and is wnl #. G-tube malfunction, referred to gastrointestinal team. --> gtube feedings as needed #. Chronic respiratory failure, status post intubation/trach. #. Erythema around the G-tube site with potential cellulitis, has been seen by ID Service. --> Cultures: Gram + cocci --> s/p abx, Appreciate id recs #. Seizure disorder - to see neuro prnl --> ativan prn and keprra The time the note was entered does not necessarily correspond to the time the patient was seen. Subjective Allergies: Coded Allergies: SULFAMETHOXAZOLE (Verified Allergy, Unknown, 10/18/17) TRIMETHOPRIM (Verified Allergy, Unknown, 10/18/17) All Systems: reviewed and negative except above Subjective Pt remains on vent. No acute events. continuing gtube Objective Last 24 Hour Vital Signs Date Time Temp Pulse Resp B/P (MAP) Pulse Ox O2 Delivery O2 Flow Rate FiO2 10/29/17 05:21 85 15 30 10/29/17 04:00 98.7 98 20 112/65 (81) 98 98.7 10/29/17 04:00 Mechanical Ventilator 10/29/17 04:00 86 10/29/17 04:00 30 10/29/17 02:57 88 24 Mechanical Ventilator 30 10/29/17 02:44 85 25 30 10/29/17 01:10 88 15 30 10/29/17 00:00 98.7 98 20 112/65 (81) 98 98.7 10/29/17 00:00 Mechanical Ventilator 10/29/17 00:00 30 10/29/17 00:00 102 10/28/17 22:44 98.8 10/28/17 22:39 100 16 30 10/28/17 22:14 102.0 10/28/17 21:00 118 22 30 10/28/17 20:00 102.0 113 21 103/67 (79) 98 102.0 10/28/17 20:00 112 10/28/17 20:00 Mechanical Ventilator 10/28/17 20:00 30 10/28/17 19:05 116 18 30 10/28/17 16:43 122 22 30 10/28/17 16:36 28 10/28/17 16:35 Mechanical Ventilator 10/28/17 16:00 98.5 129 27 106/52 (70) 98 98.5 10/28/17 16:00 129 10/28/17 14:30 118 21 30 10/28/17 13:03 111 22 30 10/28/17 12:00 Mechanical Ventilator 10/28/17 12:00 97.9 117 17 141/85 (103) 95 97.9 10/28/17 12:00 105 10/28/17 12:00 28 10/28/17 10:30 99 20 30 10/28/17 08:48 97 21 30 10/28/17 08:00 28 10/28/17 08:00 97.5 95 15 95/47 (63) 96 97.5 10/28/17 08:00 Mechanical Ventilator 10/28/17 08:00 99 10/28/17 06:30 104 21 30 Intake and Output 10/28/17 10/29/17 19:00 07:00 Intake Total 1360 ml 1520.0 ml Output Total 1700 ml 450 ml Balance -340 ml 1070.0 ml Free Water 70 ml 150 ml IV Total 510 ml 710.0 ml Tube Feeding 780 ml 660 ml Output Urine Total 1700 ml 450 ml # Bowel Movements 3 3 Laboratory Tests 10/29/17 04:00: White Blood Count 6.7, Red Blood Count 4.37L, Hemoglobin 13.6L, Hematocrit 40.4L , Mean Corpuscular Volume 93, Mean Corpuscular Hemoglobin 31.2H, Mean Corpuscular Hemoglobin Concent 33.7, Red Cell Distribution Width 12.1, Platelet Count 186, Mean Platelet Volume 7.3, Neutrophils (%) (Auto) 61.1, Lymphocytes (% ) (Auto) 25.6, Monocytes (%) (Auto) 8.6, Eosinophils (%) (Auto) 3.8H, Basophils (%) (Auto) 0.9, Sodium Level 138, Potassium Level 3.0L, Chloride Level 104, Carbon Dioxide Level 28, Anion Gap 6, Blood Urea Nitrogen 14, Creatinine 0.6, Estimat Glomerular Filtration Rate > 60, Glucose Level 100, Calcium Level 8.0L, Phosphorus Level 2.4L, Magnesium Level 2.0, Total Bilirubin 1.4H, Direct Bilirubin 0.7H, Aspartate Amino Transf (AST/SGOT) 31, Alanine Aminotransferase ( ALT/SGPT) 34, Alkaline Phosphatase 269H, Total Protein 6.5, Albumin 2.3L, Globulin 4.2, Albumin/Globulin Ratio 0.5L Height (Feet): 5 Height (Inches): 9.00 Weight (Pounds): 179 General Appearance: alert EENT: TMs normal Neck: normal alignment Cardiovascular: regular rhythm Respiratory/Chest: lungs clear Abdomen: no organomegaly Extremities: non-tender Edema: 1+ Leg (L), 1+ Leg (R) Edema: moderate edema Neurologic: alert Skin: warm/dry Reid Grajeda MD Oct 29, 2017 06:31
[2017-10-29 08:00] VITALS: BP 88/52
[2017-10-29] MEDS: levETIRAcetam 500mg/NS100ml 100 ML IVPB SCH ×2 (09:01→21:37)
[2017-10-29] MEDS: D5 1/2NS 1,000 ML IV SCH (09:01)
[2017-10-29] MEDS: Pantoprazole Inj IVP SCH (09:01)
--- NOTE | 2017-10-29 10:15 | Pulmonolgy Critical Care Note ---
Critical Care - Asmt/Plan Problems: (1) Sepsis (2) Chronic respiratory failure (3) Gastrostomy site leak (4) Seizures (5) Quadriplegia Assessment/Plan: had a temp of 102 last night Respiratory: monitor respiratory rate, adjust FIO2, CXR Cardiac: continue to monitor HR/BP Renal: F/U I&O Infectious Disease: check cultures, continue antibiotics Gastrointestinal: continue feedings/current rate Endocrine: monitor blood sugar, check HgA1C Hematologic: transfuse if hgb<8.5 Neurologic: PRN Ativan, keep patient comfortable Prophylaxis: Protonix Notes Reviewed: social media project manager, renal Discussed with: nurses, consultants, lead case managerclinical account manager - Objective Last 24 Hour Vital Signs Date Time Temp Pulse Resp B/P (MAP) Pulse Ox O2 Delivery O2 Flow Rate FiO2 10/29/17 09:15 83 16 30 10/29/17 08:00 97.5 88 18 88/52 (64) 98 97.5 10/29/17 08:00 Mechanical Ventilator 10/29/17 08:00 30 10/29/17 07:25 86 17 30 10/29/17 05:21 85 15 30 10/29/17 04:00 98.7 98 20 112/65 (81) 98 98.7 10/29/17 04:00 Mechanical Ventilator 10/29/17 04:00 86 10/29/17 04:00 30 10/29/17 02:57 88 24 Mechanical Ventilator 30 10/29/17 02:44 85 25 30 10/29/17 01:10 88 15 30 10/29/17 00:00 98.7 98 20 112/65 (81) 98 98.7 10/29/17 00:00 Mechanical Ventilator 10/29/17 00:00 30 10/29/17 00:00 102 10/28/17 22:44 98.8 10/28/17 22:39 100 16 30 10/28/17 22:14 102.0 10/28/17 21:00 118 22 30 10/28/17 20:00 102.0 113 21 103/67 (79) 98 102.0 10/28/17 20:00 112 10/28/17 20:00 Mechanical Ventilator 10/28/17 20:00 30 10/28/17 19:05 116 18 30 10/28/17 16:43 122 22 30 10/28/17 16:36 28 10/28/17 16:35 Mechanical Ventilator 10/28/17 16:00 98.5 129 27 106/52 (70) 98 98.5 10/28/17 16:00 129 10/28/17 14:30 118 21 30 10/28/17 13:03 111 22 30 10/28/17 12:00 Mechanical Ventilator 10/28/17 12:00 97.9 117 17 141/85 (103) 95 97.9 10/28/17 12:00 105 10/28/17 12:00 28 10/28/17 10:30 99 20 30 Status: awake Condition: critical HEENT: atraumatic Neck: full ROM Lungs: clear Heart: HR/BP stable Abdomen: soft, non-tender Extremities: no C/C/E Critical Care - Subjective ROS Limited/Unobtainable: Yes Condition: critical EKG Rhythm: Sinus Rhythm FI02: 30 Vent Support Breath Rate: 15 Vent Support Mode: AC Vent Tidal Volume: 500 Sputum Amount: Moderate PEEP: 0.0 PIP: 33 Tube Feeding Amount: 60 I&O: Intake and Output 10/28/17 10/29/17 19:00 07:00 Intake Total 1360 ml 1520.0 ml Output Total 1700 ml 800 ml Balance -340 ml 720.0 ml Free Water 70 ml 150 ml IV Total 510 ml 710.0 ml Tube Feeding 780 ml 660 ml Output Urine Total 1700 ml 800 ml # Bowel Movements 3 3 Labs: Laboratory Tests Test 10/29/17 04:00 White Blood Count 6.7 K/UL (4.8-10.8) Red Blood Count 4.37 M/UL (4.70-6.10) L Hemoglobin 13.6 G/DL (14.2-18.0) L Hematocrit 40.4 % (42.0-52.0) L Mean Corpuscular Volume 93 FL (80-99) Mean Corpuscular Hemoglobin 31.2 PG (27.0-31.0) H Mean Corpuscular Hemoglobin Concent 33.7 G/DL (32.0-36.0) Red Cell Distribution Width 12.1 % (11.6-14.8) Platelet Count 186 K/UL (150-450) Mean Platelet Volume 7.3 FL (6.5-10.1) Neutrophils (%) (Auto) 61.1 % (45.0-75.0) Lymphocytes (%) (Auto) 25.6 % (20.0-45.0) Monocytes (%) (Auto) 8.6 % (1.0-10.0) Eosinophils (%) (Auto) 3.8 % (0.0-3.0) H Basophils (%) (Auto) 0.9 % (0.0-2.0) Sodium Level 138 MMOL/L (136-145) Potassium Level 3.0 MMOL/L (3.5-5.1) L Chloride Level 104 MMOL/L (98-107) Carbon Dioxide Level 28 MMOL/L (21-32) Anion Gap 6 mmol/L (5-15) Blood Urea Nitrogen 14 mg/dL (7-18) Creatinine 0.6 MG/DL (0.55-1.30) Estimat Glomerular Filtration Rate > 60 mL/min (>60) Glucose Level 100 MG/DL (74-106) Calcium Level 8.0 MG/DL (8.5-10.1) L Phosphorus Level 2.4 MG/DL (2.5-4.9) L Magnesium Level 2.0 MG/DL (1.8-2.4) Total Bilirubin 1.4 MG/DL (0.2-1.0) H Direct Bilirubin 0.7 MG/DL (0.0-0.3) H Aspartate Amino Transf (AST/SGOT) 31 U/L (15-37) Alanine Aminotransferase (ALT/SGPT) 34 U/L (12-78) Alkaline Phosphatase 269 U/L (46-116) H Total Protein 6.5 G/DL (6.4-8.2) Albumin 2.3 G/DL (3.4-5.0) L Globulin 4.2 g/dL Albumin/Globulin Ratio 0.5 (1.0-2.7) L Mellissa Garcia MD Oct 29, 2017 10:15
--- NOTE | 2017-10-29 10:47 | GI Progress Note ---
Assessment/Plan Problems: (1) Malfunction of gastrostomy tube ICD Codes: K94.23 - Gastrostomy malfunction SNOMED: 274166514 (2) Sepsis ICD Codes: A41.9 - Sepsis, unspecified organism SNOMED: 83688223 (3) Gastrostomy site leak ICD Codes: K94.23 - Gastrostomy malfunction SNOMED: 804444487 (4) Seizures ICD Codes: R56.9 - Unspecified convulsions SNOMED: 70846268 Status: stable Status Narrative Discussed with Dr. Lehman. Assessment/Plan s/p J tube placement GT site cellulitis hepatitis panel negative no anemia supportive care GT site care TID, would care per surgical GTFs per RD electrolyte correction zofran prn abx per ID trend LFTs fu labs dc planning The patient was seen and examined at bedside and all new and available data was reviewed in the patients chart. I agree with the above findings, impression and plan. (Patient seen earlier today. Signature stamp does not reflect patient encounter time.). - Kvng Lehman MD Subjective Subjective limited Objective Last 24 Hour Vital Signs Date Time Temp Pulse Resp B/P (MAP) Pulse Ox O2 Delivery O2 Flow Rate FiO2 10/29/17 09:15 83 16 30 10/29/17 08:00 97.5 88 18 88/52 (64) 98 97.5 10/29/17 08:00 Mechanical Ventilator 10/29/17 08:00 82 10/29/17 08:00 30 10/29/17 07:25 86 17 30 10/29/17 05:21 85 15 30 10/29/17 04:00 98.7 98 20 112/65 (81) 98 98.7 10/29/17 04:00 Mechanical Ventilator 10/29/17 04:00 86 10/29/17 04:00 30 10/29/17 02:57 88 24 Mechanical Ventilator 30 10/29/17 02:44 85 25 30 10/29/17 01:10 88 15 30 10/29/17 00:00 98.7 98 20 112/65 (81) 98 98.7 10/29/17 00:00 Mechanical Ventilator 10/29/17 00:00 30 10/29/17 00:00 102 10/28/17 22:44 98.8 10/28/17 22:39 100 16 30 10/28/17 22:14 102.0 10/28/17 21:00 118 22 30 10/28/17 20:00 102.0 113 21 103/67 (79) 98 102.0 10/28/17 20:00 112 10/28/17 20:00 Mechanical Ventilator 10/28/17 20:00 30 10/28/17 19:05 116 18 30 10/28/17 16:43 122 22 30 10/28/17 16:36 28 10/28/17 16:35 Mechanical Ventilator 10/28/17 16:00 98.5 129 27 106/52 (70) 98 98.5 10/28/17 16:00 129 10/28/17 14:30 118 21 30 10/28/17 13:03 111 22 30 10/28/17 12:00 Mechanical Ventilator 10/28/17 12:00 97.9 117 17 141/85 (103) 95 97.9 10/28/17 12:00 105 10/28/17 12:00 28 Intake and Output 10/28/17 10/29/17 19:00 07:00 Intake Total 1360 ml 1520.0 ml Output Total 1700 ml 800 ml Balance -340 ml 720.0 ml Free Water 70 ml 150 ml IV Total 510 ml 710.0 ml Tube Feeding 780 ml 660 ml Output Urine Total 1700 ml 800 ml # Bowel Movements 3 3 Laboratory Tests Test 10/29/17 04:00 White Blood Count 6.7 K/UL (4.8-10.8) Red Blood Count 4.37 M/UL (4.70-6.10) L Hemoglobin 13.6 G/DL (14.2-18.0) L Hematocrit 40.4 % (42.0-52.0) L Mean Corpuscular Volume 93 FL (80-99) Mean Corpuscular Hemoglobin 31.2 PG (27.0-31.0) H Mean Corpuscular Hemoglobin Concent 33.7 G/DL (32.0-36.0) Red Cell Distribution Width 12.1 % (11.6-14.8) Platelet Count 186 K/UL (150-450) Mean Platelet Volume 7.3 FL (6.5-10.1) Neutrophils (%) (Auto) 61.1 % (45.0-75.0) Lymphocytes (%) (Auto) 25.6 % (20.0-45.0) Monocytes (%) (Auto) 8.6 % (1.0-10.0) Eosinophils (%) (Auto) 3.8 % (0.0-3.0) H Basophils (%) (Auto) 0.9 % (0.0-2.0) Sodium Level 138 MMOL/L (136-145) Potassium Level 3.0 MMOL/L (3.5-5.1) L Chloride Level 104 MMOL/L (98-107) Carbon Dioxide Level 28 MMOL/L (21-32) Anion Gap 6 mmol/L (5-15) Blood Urea Nitrogen 14 mg/dL (7-18) Creatinine 0.6 MG/DL (0.55-1.30) Estimat Glomerular Filtration Rate > 60 mL/min (>60) Glucose Level 100 MG/DL (74-106) Calcium Level 8.0 MG/DL (8.5-10.1) L Phosphorus Level 2.4 MG/DL (2.5-4.9) L Magnesium Level 2.0 MG/DL (1.8-2.4) Total Bilirubin 1.4 MG/DL (0.2-1.0) H Direct Bilirubin 0.7 MG/DL (0.0-0.3) H Aspartate Amino Transf (AST/SGOT) 31 U/L (15-37) Alanine Aminotransferase (ALT/SGPT) 34 U/L (12-78) Alkaline Phosphatase 269 U/L (46-116) H Total Protein 6.5 G/DL (6.4-8.2) Albumin 2.3 G/DL (3.4-5.0) L Globulin 4.2 g/dL Albumin/Globulin Ratio 0.5 (1.0-2.7) L Height (Feet): 5 Height (Inches): 9.00 Weight (Pounds): 179 General Appearance: no apparent distress Cardiovascular: normal rate Respiratory/Chest: normal breath sounds, no respiratory distress Abdominal Exam: normal bowel sounds, non tender, soft, other - J tube Extremities: non-tender Daisy Bernstein NP Oct 29, 2017 10:47
--- NOTE | 2017-10-29 10:53 | Cardiology Progress Note ---
Assessment/Plan Status: stable Assessment/Plan Assessment: (1) Sepsis (2) Chronic respiratory failure (3) Gastrostomy site leak (4) Seizures (5) Quadriplegia Plan: Continue wound care Trach care/G tube care Supportive care Continue keppra for seizures No indication for cardiac cath Stress test when stable Continue antibiotics for ten days per ID PICC line placed Replete electrolytes Physical therapy Sinus tachycardia noted, no treatment needed Dispo planning Subjective Cardiovascular: Reports: no symptoms Respiratory: Reports: no symptoms Gastrointestinal/Abdominal: Reports: no symptoms Genitourinary: Reports: no symptoms Subjective No acute events, afebrile, tachycardic, on vent, receiving g tube feeds. Abx running. HIDA scan negative. Chest x ray with Minimal left basilar atelectasis. Equivocal trace right pleural effusion. PICC line placed Hypotensive currently, Potassium low Objective Last 24 Hour Vital Signs Date Time Temp Pulse Resp B/P (MAP) Pulse Ox O2 Delivery O2 Flow Rate FiO2 10/29/17 09:15 83 16 30 10/29/17 08:00 97.5 88 18 88/52 (64) 98 97.5 10/29/17 08:00 Mechanical Ventilator 10/29/17 08:00 82 10/29/17 08:00 30 10/29/17 07:25 86 17 30 10/29/17 05:21 85 15 30 10/29/17 04:00 98.7 98 20 112/65 (81) 98 98.7 10/29/17 04:00 Mechanical Ventilator 10/29/17 04:00 86 10/29/17 04:00 30 10/29/17 02:57 88 24 Mechanical Ventilator 30 10/29/17 02:44 85 25 30 10/29/17 01:10 88 15 30 10/29/17 00:00 98.7 98 20 112/65 (81) 98 98.7 10/29/17 00:00 Mechanical Ventilator 10/29/17 00:00 30 10/29/17 00:00 102 10/28/17 22:44 98.8 10/28/17 22:39 100 16 30 10/28/17 22:14 102.0 10/28/17 21:00 118 22 30 10/28/17 20:00 102.0 113 21 103/67 (79) 98 102.0 10/28/17 20:00 112 10/28/17 20:00 Mechanical Ventilator 10/28/17 20:00 30 10/28/17 19:05 116 18 30 10/28/17 16:43 122 22 30 10/28/17 16:36 28 10/28/17 16:35 Mechanical Ventilator 10/28/17 16:00 98.5 129 27 106/52 (70) 98 98.5 10/28/17 16:00 129 10/28/17 14:30 118 21 30 10/28/17 13:03 111 22 30 10/28/17 12:00 Mechanical Ventilator 10/28/17 12:00 97.9 117 17 141/85 (103) 95 97.9 10/28/17 12:00 105 10/28/17 12:00 28 General Appearance: no apparent distress EENT: PERRL/EOMI, normal ENT inspection Neck: non-tender, normal alignment, supple, normal inspection, no JVD Rhythm: ST Cardiovascular: normal peripheral pulses, normal rate, regular rhythm Respiratory/Chest: chest wall non-tender, lungs clear Abdomen: normal bowel sounds, non tender Extremities: normal range of motion, non-tender Neurologic: business support professional II-XII grossly normal Intake and Output 10/28/17 10/29/17 19:00 07:00 Intake Total 1360 ml 1630.0 ml Output Total 1700 ml 800 ml Balance -340 ml 830.0 ml Free Water 70 ml 150 ml IV Total 510 ml 760.0 ml Tube Feeding 780 ml 720 ml Output Urine Total 1700 ml 800 ml # Bowel Movements 3 3 Laboratory Tests Test 10/29/17 04:00 White Blood Count 6.7 K/UL (4.8-10.8) Red Blood Count 4.37 M/UL (4.70-6.10) L Hemoglobin 13.6 G/DL (14.2-18.0) L Hematocrit 40.4 % (42.0-52.0) L Mean Corpuscular Volume 93 FL (80-99) Mean Corpuscular Hemoglobin 31.2 PG (27.0-31.0) H Mean Corpuscular Hemoglobin Concent 33.7 G/DL (32.0-36.0) Red Cell Distribution Width 12.1 % (11.6-14.8) Platelet Count 186 K/UL (150-450) Mean Platelet Volume 7.3 FL (6.5-10.1) Neutrophils (%) (Auto) 61.1 % (45.0-75.0) Lymphocytes (%) (Auto) 25.6 % (20.0-45.0) Monocytes (%) (Auto) 8.6 % (1.0-10.0) Eosinophils (%) (Auto) 3.8 % (0.0-3.0) H Basophils (%) (Auto) 0.9 % (0.0-2.0) Sodium Level 138 MMOL/L (136-145) Potassium Level 3.0 MMOL/L (3.5-5.1) L Chloride Level 104 MMOL/L (98-107) Carbon Dioxide Level 28 MMOL/L (21-32) Anion Gap 6 mmol/L (5-15) Blood Urea Nitrogen 14 mg/dL (7-18) Creatinine 0.6 MG/DL (0.55-1.30) Estimat Glomerular Filtration Rate > 60 mL/min (>60) Glucose Level 100 MG/DL (74-106) Calcium Level 8.0 MG/DL (8.5-10.1) L Phosphorus Level 2.4 MG/DL (2.5-4.9) L Magnesium Level 2.0 MG/DL (1.8-2.4) Total Bilirubin 1.4 MG/DL (0.2-1.0) H Direct Bilirubin 0.7 MG/DL (0.0-0.3) H Aspartate Amino Transf (AST/SGOT) 31 U/L (15-37) Alanine Aminotransferase (ALT/SGPT) 34 U/L (12-78) Alkaline Phosphatase 269 U/L (46-116) H Total Protein 6.5 G/DL (6.4-8.2) Albumin 2.3 G/DL (3.4-5.0) L Globulin 4.2 g/dL Albumin/Globulin Ratio 0.5 (1.0-2.7) L Nikita Reddy M.D. Oct 29, 2017 10:53
--- NOTE | 2017-10-29 11:32 | Infectious Diseases Prog Note ---
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 pneumo) - S/P new Gtube 10/22/17 Afebrile, no leukocytosis chronic resp failure s/p trach dysphagia s/p GT SN[facility] resident Plan: - Continue Zosyn #10/31 and Vancomycin #8 End date 10/31/17 -Monitor CBC/CMP, temperatures -aspiration precautions -wound care per hosp protocol Thank you for this consultation. Will continue to follow along with you. Subjective Allergies: Coded Allergies: SULFAMETHOXAZOLE (Verified Allergy, Unknown, 10/18/17) TRIMETHOPRIM (Verified Allergy, Unknown, 10/18/17) Subjective No Acute everts. Sating well Nonverbal but interactive asking questions No fevers Objective Vital Signs Last 24 Hour Vital Signs Date Time Temp Pulse Resp B/P (MAP) Pulse Ox O2 Delivery O2 Flow Rate FiO2 10/29/17 09:15 83 16 30 10/29/17 08:00 97.5 88 18 88/52 (64) 98 97.5 10/29/17 08:00 Mechanical Ventilator 10/29/17 08:00 82 10/29/17 08:00 30 10/29/17 07:25 86 17 30 10/29/17 05:21 85 15 30 10/29/17 04:00 98.7 98 20 112/65 (81) 98 98.7 10/29/17 04:00 Mechanical Ventilator 10/29/17 04:00 86 10/29/17 04:00 30 10/29/17 02:57 88 24 Mechanical Ventilator 30 10/29/17 02:44 85 25 30 10/29/17 01:10 88 15 30 10/29/17 00:00 98.7 98 20 112/65 (81) 98 98.7 10/29/17 00:00 Mechanical Ventilator 10/29/17 00:00 30 10/29/17 00:00 102 10/28/17 22:44 98.8 10/28/17 22:39 100 16 30 10/28/17 22:14 102.0 10/28/17 21:00 118 22 30 10/28/17 20:00 102.0 113 21 103/67 (79) 98 102.0 10/28/17 20:00 112 10/28/17 20:00 Mechanical Ventilator 10/28/17 20:00 30 10/28/17 19:05 116 18 30 10/28/17 16:43 122 22 30 10/28/17 16:36 28 10/28/17 16:35 Mechanical Ventilator 10/28/17 16:00 98.5 129 27 106/52 (70) 98 98.5 10/28/17 16:00 129 10/28/17 14:30 118 21 30 10/28/17 13:03 111 22 30 10/28/17 12:00 Mechanical Ventilator 10/28/17 12:00 97.9 117 17 141/85 (103) 95 97.9 10/28/17 12:00 105 10/28/17 12:00 28 Height (Feet): 5 Height (Inches): 9.00 Weight (Pounds): 179 Objective General: NAD, Interactive HEENT: NCAT, MMM, anicteric, Trached Respiratory/Chest: CTAB, No wheezing, Cardiovascular/Chest: normal peripheral pulses, normal rate, Abdomen: soft, nt, nd, - G tube site with dressing in place no purulent drainage Skin Exam: warm/dry, Neurologic: abnormal gait - bedridden , other - awake, responds with eyes and nodding , quadriplegia Musculoskeletal: atrophy - BLE Laboratory Tests Test 10/29/17 04:00 White Blood Count 6.7 K/UL (4.8-10.8) Red Blood Count 4.37 M/UL (4.70-6.10) L Hemoglobin 13.6 G/DL (14.2-18.0) L Hematocrit 40.4 % (42.0-52.0) L Mean Corpuscular Volume 93 FL (80-99) Mean Corpuscular Hemoglobin 31.2 PG (27.0-31.0) H Mean Corpuscular Hemoglobin Concent 33.7 G/DL (32.0-36.0) Red Cell Distribution Width 12.1 % (11.6-14.8) Platelet Count 186 K/UL (150-450) Mean Platelet Volume 7.3 FL (6.5-10.1) Neutrophils (%) (Auto) 61.1 % (45.0-75.0) Lymphocytes (%) (Auto) 25.6 % (20.0-45.0) Monocytes (%) (Auto) 8.6 % (1.0-10.0) Eosinophils (%) (Auto) 3.8 % (0.0-3.0) H Basophils (%) (Auto) 0.9 % (0.0-2.0) Sodium Level 138 MMOL/L (136-145) Potassium Level 3.0 MMOL/L (3.5-5.1) L Chloride Level 104 MMOL/L (98-107) Carbon Dioxide Level 28 MMOL/L (21-32) Anion Gap 6 mmol/L (5-15) Blood Urea Nitrogen 14 mg/dL (7-18) Creatinine 0.6 MG/DL (0.55-1.30) Estimat Glomerular Filtration Rate > 60 mL/min (>60) Glucose Level 100 MG/DL (74-106) Calcium Level 8.0 MG/DL (8.5-10.1) L Phosphorus Level 2.4 MG/DL (2.5-4.9) L Magnesium Level 2.0 MG/DL (1.8-2.4) Total Bilirubin 1.4 MG/DL (0.2-1.0) H Direct Bilirubin 0.7 MG/DL (0.0-0.3) H Aspartate Amino Transf (AST/SGOT) 31 U/L (15-37) Alanine Aminotransferase (ALT/SGPT) 34 U/L (12-78) Alkaline Phosphatase 269 U/L (46-116) H Total Protein 6.5 G/DL (6.4-8.2) Albumin 2.3 G/DL (3.4-5.0) L Globulin 4.2 g/dL Albumin/Globulin Ratio 0.5 (1.0-2.7) L Current Medications Medications (Trade) Dose Ordered Sig/Vicenta Route PRN Reason Start Time Stop Time Status Last Admin Dose Admin Acetaminophen (Tylenol) 650 mg Q4H PRN NG T>100.5 10/22/17 17:00 11/19/17 16:59 10/28/17 22:14 Acetaminophen/ Hydrocodone Bitart ([place] 5/325) 1 tab Q6H PRN ORAL For Pain 10/27/17 11:15 11/03/17 11:14 10/27/17 11:56 Artificial Tears ([place]-Tears) 1 drop Q6H PRN BOTH EYES dry eyes 10/22/17 17:15 11/17/17 05:14 10/28/17 06:14 Chlorhexidine Gluconate ([place]aitlyn-Hex 2%) 1 applic DAILY@2000 TOPIC 10/28/17 20:00 11/27/17 19:59 10/28/17 21:38 Dextrose/Sodium Chloride 1,000 ml @ 50 mls/hr Q20H IV 10/22/17 17:30 11/16/17 17:29 10/29/17 09:01 Levetiracetam 100 ml @ 400 mls/hr Q12HR IVPB 10/22/17 21:00 11/18/17 09:59 10/29/17 09:01 Lorazepam (Ativan 2mg/ml 1ml) 2 mg Q2H PRN IV For Seizures 10/27/17 11:15 11/03/17 11:14 10/28/17 17:09 Ondansetron HCl (Zofran) 4 mg Q6H PRN IVP Nausea & Vomiting 10/22/17 17:00 11/16/17 16:59 Pantoprazole (Protonix) 40 mg DAILY IVP 10/23/17 09:00 11/19/17 12:35 10/29/17 09:01 Piperacillin Sod/ Tazobactam Sod 3.375 gm/Dextrose 110 ml @ 27.5 mls/hr EVERY 8 HOURS IVPB 10/22/17 22:00 10/31/17 21:59 10/29/17 06:06 Vancomycin HCl (Vanco rx to dose) 1 ea DAILY PRN [facility] [place] pharmacy to dose 10/23/17 17:15 11/22/17 17:14 Vancomycin HCl 1 gm/Dextrose 275 ml @ 183.708 mls/hr Q12H IVPB 10/25/17 06:00 10/30/17 05:59 10/29/17 06:06 Nikita Mobley M.D. Oct 29, 2017 11:32
[2017-10-29 12:00] VITALS: BP 91/50
[2017-10-29 16:00] VITALS: BP 124/73
--- NOTE | 2017-10-29 17:45 | Progress Note ---
DATE: 10/28/2017 NOTE: POOR AUDIO SUBJECTIVE: The patient was admitted on 09/17/2017 because of gastrostomy leak. The patient was not seen by me until 10/28/2017. the medical record since admission as well as laboratory tests and imaging study. Currently, the patient is afebrile and hemodynamically stable. There is persistent tachycardia. PHYSICAL EXAMINATION: VITAL SIGNS: Blood pressure 106/52, his pulse is 118, respirations are 21, and temperature 98.5. HEENT: Eyes were normal. ENT, mucous membranes were moist and intact. NECK: Supple with no JVD without lymph nodes. Tracheostomy site is clean. LUNGS: Clear without rhonchi, rales, or wheezing. Secretions are small, thin, and garcia. HEART: Normal sounds with beats. There is tachycardia at rest. Sinus tachycardia on monitor. ABDOMEN: Soft and nontender with normal bowel sounds. Gastrostomy site is erythematous and the patient with J-tube. EXTREMITIES: Warm without cyanosis, clubbing, or edema. LABORATORY AND DIAGNOSTIC DATA: Hemoglobin is 15.2, hematocrit 44.3, MCV of 93, WBC of 5.1, and platelets are 168,000. His BUN and creatinine are 11 and 0.6, respectively. Sodium is 141, potassium 3.4, chloride 105, CO2 is 27, and glucose is 158. His phosphorus is 4 and magnesium is 2.2. His alkaline phosphatase is 286 and SGOT is 40. His total bilirubin is 1.4. His albumin is 2.5 and total protein is 7.1. The patient has multiple imaging studies that include chest x-ray, abdominal ultrasound, and HIDA scan. The HIDA scan study was negative. His chest x-ray shows no active disease. His abdominal ultrasound revealed a nonmobile gallstone in the gallbladder gallbladder. Suspect acute cholecystitis. There was also left hepatic lobe, could represent cirrhotic changes. IMPRESSION AND PLAN: Currently, the patient is afebrile and hemodynamically stable without leukocytosis. and negative under imaging studies. Repeat laboratory tests will be done in the a.m. Mireille Groves M.D. DR: GUERLINE JOB#: [id number] CC:
[2017-10-29 20:00] VITALS: BP 106/66
[2017-10-29] MEDS ORDERED: Metoprolol Succinate XL 50mg tab ORAL ONE (21:15)
[2017-10-29] MEDS ORDERED: Metoprolol Tartrate 50mg tab JT SCH (21:15)
[2017-10-29] MEDS: Dyna-Hex 2% Top Sol 2oz TOPIC SCH (21:37)
[2017-10-30] VITALS: BP 139/78
[2017-10-30 04:00] VITALS: BP 110/64
[2017-10-30 05:20] LABS: BASOPHILS % (AUTO) 0.6 % (0.0-2.0); EOSINOPHILS % (AUTO) 2.6 % (0.0-3.0); HEMATOCRIT 38.4 % (42.0-52.0); HEMOGLOBIN 13.4 G/DL (14.2-18.0); LYMPHOCYTES % (AUTO) 18.5 % (20.0-45.0); MEAN CORPUSCULAR VOLUME 94 FL (80-99); MONOCYTES % (AUTO) 7.6 % (1.0-10.0); NEUTROPHILS % (AUTO) 70.7 % (45.0-75.0); PLATELET COUNT 174 K/UL (150-450); RED BLOOD COUNT 4.08 M/UL (4.70-6.10); RED CELL DISTRIBUTION WIDTH 12.2 % (11.6-14.8)
[2017-10-30] MEDS ORDERED: Vancomycin 1gm inj IVPB ONE (06:03)
[2017-10-30] MEDS: Piperacillin/Tazobactam 3.375 GM in D5W 110 ML IVPB SCH ×2 (06:10→14:08)
[2017-10-30] MEDS: D5 1/2NS 1,000 ML IV SCH (06:11)
[2017-10-30] MEDS: Vancomycin 1gm/D5W 275ml IVPB SCH ×4 (06:11→18:00)
[2017-10-30 06:42] LABS: ALANINE AMINOTRANSFERASE 35 U/L (12-78); ALBUMIN 2.3 G/DL (3.4-5.0); ALBUMIN/GLOBULIN RATIO 0.6 (1.0-2.7); ALKALINE PHOSPHATASE 278 U/L (46-116); ANION GAP 6 mmol/L (5-15); ASPARTATE AMINO TRANSFERASE 31 U/L (15-37); BLOOD UREA NITROGEN 12 mg/dL (7-18); CARBON DIOXIDE 28 MMOL/L (21-32); CHLORIDE 106 MMOL/L (98-107); CREATININE 0.6 MG/DL (0.55-1.30); SODIUM 140 MMOL/L (136-145)
[2017-10-30 08:00] VITALS: BP 101/61
--- NOTE | 2017-10-30 09:10 | Infectious Diseases Prog Note ---
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 pneumo) - S/P new Gtube 10/22/17 Afebrile, no leukocytosis chronic resp failure s/p trach dysphagia s/p GT [facility] resident Plan: - Continue Zosyn #12/01 and Vancomycin #12/01 End date 10/31/17 -Monitor CBC/CMP, temperatures -aspiration precautions -wound care per hosp protocol Thank you for this consultation. Will continue to follow along with you. Subjective Allergies: Coded Allergies: SULFAMETHOXAZOLE (Verified Allergy, Unknown, 10/18/17) TRIMETHOPRIM (Verified Allergy, Unknown, 10/18/17) Subjective No Acute everts overnight No fevers Objective Vital Signs Last 24 Hour Vital Signs Date Time Temp Pulse Resp B/P (MAP) Pulse Ox O2 Delivery O2 Flow Rate FiO2 10/30/17 08:40 93 15 30 10/30/17 08:17 90 10/30/17 08:00 30 10/30/17 08:00 Mechanical Ventilator 10/30/17 08:00 97.9 96 22 101/61 (74) 98 97.9 10/30/17 07:17 95 20 30 10/30/17 04:50 93 15 30 10/30/17 04:00 Mechanical Ventilator 10/30/17 04:00 98 10/30/17 04:00 30 10/30/17 04:00 98.7 98 20 110/64 (79) 98 98.7 10/30/17 02:35 102 15 30 10/30/17 00:57 101 15 30 10/30/17 00:00 Mechanical Ventilator 10/30/17 00:00 98.5 104 15 139/78 (98) 99 98.5 10/30/17 00:00 101 10/29/17 23:11 105 19 30 10/29/17 21:15 119 103/57 10/29/17 21:14 123 31 30 10/29/17 20:00 99.2 129 22 106/66 (79) 97 99.2 10/29/17 20:00 30 10/29/17 20:00 Mechanical Ventilator 10/29/17 19:50 126 10/29/17 19:00 122 33 30 10/29/17 17:24 102 17 30 10/29/17 16:00 30 10/29/17 16:00 90 10/29/17 16:00 98.2 96 21 124/73 (90) 96 98.2 10/29/17 16:00 Mechanical Ventilator 10/29/17 15:30 98 16 30 10/29/17 13:24 106 17 30 10/29/17 12:01 81 10/29/17 12:00 Mechanical Ventilator 10/29/17 12:00 97.2 86 18 91/50 (64) 98 97.2 10/29/17 12:00 30 10/29/17 11:18 82 15 30 10/29/17 09:15 83 16 30 Height (Feet): 5 Height (Inches): 9.00 Weight (Pounds): 178 Objective General: NAD, Interactive but not verbal HEENT: NCAT, MMM, anicteric, Trached Respiratory/Chest: CTAB, No wheezing, Cardiovascular/Chest: normal peripheral pulses, normal rate, Abdomen: Soft, NT, ND, G tube site with dressing in place no purulent drainage Skin Exam: warm/dry, Neurologic: abnormal gait - bedridden , other - awake, responds with eyes and nodding , quadriplegia Musculoskeletal: atrophy - BLE Laboratory Tests Test 10/30/17 04:30 White Blood Count 8.0 K/UL (4.8-10.8) Red Blood Count 4.08 M/UL (4.70-6.10) L Hemoglobin 13.4 G/DL (14.2-18.0) L Hematocrit 38.4 % (42.0-52.0) L Mean Corpuscular Volume 94 FL (80-99) Mean Corpuscular Hemoglobin 32.8 PG (27.0-31.0) H Mean Corpuscular Hemoglobin Concent 34.9 G/DL (32.0-36.0) Red Cell Distribution Width 12.2 % (11.6-14.8) Platelet Count 174 K/UL (150-450) Mean Platelet Volume 7.5 FL (6.5-10.1) Neutrophils (%) (Auto) 70.7 % (45.0-75.0) Lymphocytes (%) (Auto) 18.5 % (20.0-45.0) L Monocytes (%) (Auto) 7.6 % (1.0-10.0) Eosinophils (%) (Auto) 2.6 % (0.0-3.0) Basophils (%) (Auto) 0.6 % (0.0-2.0) Sodium Level 140 MMOL/L (136-145) Potassium Level 3.0 MMOL/L (3.5-5.1) L Chloride Level 106 MMOL/L (98-107) Carbon Dioxide Level 28 MMOL/L (21-32) Anion Gap 6 mmol/L (5-15) Blood Urea Nitrogen 12 mg/dL (7-18) Creatinine 0.6 MG/DL (0.55-1.30) Estimat Glomerular Filtration Rate > 60 mL/min (>60) Glucose Level 140 MG/DL (74-106) H Calcium Level 8.0 MG/DL (8.5-10.1) L Total Bilirubin 1.0 MG/DL (0.2-1.0) Aspartate Amino Transf (AST/SGOT) 31 U/L (15-37) Alanine Aminotransferase (ALT/SGPT) 35 U/L (12-78) Alkaline Phosphatase 278 U/L (46-116) H Pro-B-Type Natriuretic Peptide 294 pg/mL (0-125) H Total Protein 6.2 G/DL (6.4-8.2) L Albumin 2.3 G/DL (3.4-5.0) L Globulin 3.9 g/dL Albumin/Globulin Ratio 0.6 (1.0-2.7) L Current Medications Medications (Trade) Dose Ordered Sig/Vicenta Route PRN Reason Start Time Stop Time Status Last Admin Dose Admin Acetaminophen (Tylenol) 650 mg Q4H PRN NG T>100.5 10/22/17 17:00 11/19/17 16:59 10/28/17 22:14 Acetaminophen/ Hydrocodone Bitart ([place] 5/325) 1 tab Q6H PRN ORAL For Pain 10/27/17 11:15 11/03/17 11:14 10/27/17 11:56 Artificial Tears ([place]-Tears) 1 drop Q6H PRN BOTH EYES dry eyes 10/22/17 17:15 11/17/17 05:14 10/28/17 06:14 Chlorhexidine Gluconate ([place]aitlyn-Hex 2%) 1 applic DAILY@1999 TOPIC 10/28/17 20:00 11/27/17 19:59 10/29/17 21:37 Dextrose/Sodium Chloride 1,000 ml @ 50 mls/hr Q20H IV 10/22/17 17:30 11/16/17 17:29 10/30/17 06:11 Levetiracetam 100 ml @ 400 mls/hr Q12HR IVPB 10/22/17 21:00 11/18/17 09:59 10/29/17 21:37 Lorazepam (Ativan 2mg/ml 1ml) 2 mg Q2H PRN IV For Seizures 10/27/17 11:15 11/03/17 11:14 10/28/17 17:09 Ondansetron HCl (Zofran) 4 mg Q6H PRN IVP Nausea & Vomiting 10/22/17 17:00 11/16/17 16:59 Pantoprazole (Protonix) 40 mg DAILY IVP 10/23/17 09:00 11/19/17 12:35 10/29/17 09:01 Piperacillin Sod/ Tazobactam Sod 3.375 gm/Dextrose 110 ml @ 27.5 mls/hr EVERY 8 HOURS IVPB 10/22/17 22:00 10/31/17 23:59 10/30/17 06:10 Vancomycin HCl (Vanco rx to dose) 1 ea DAILY PRN MISC pharmacy to dose 10/23/17 17:15 11/22/17 17:14 Vancomycin HCl 1 gm/Dextrose 275 ml @ 183.708 mls/hr Q12H IVPB 10/25/17 06:00 10/31/17 23:59 10/30/17 06:11 Nikita Mobley M.D. Oct 30, 2017 09:10
[2017-10-30] MEDS: Pantoprazole Inj IVP SCH (09:16)
[2017-10-30] MEDS: levETIRAcetam 500mg/NS100ml 100 ML IVPB SCH (09:16)
--- NOTE | 2017-10-30 09:30 | Progress Note ---
DATE: 10/29/2017 SUBJECTIVE: The patient has low-grade fever and tachycardic, but source of fever is unclear. PHYSICAL EXAMINATION: VITAL SIGNS: Blood pressure is 103/57, his pulse is 119, respirations are 19, and temperature 99.2 degrees. HEENT: Eyes were normal. ENT, mucous membranes were moist and intact. NECK: Supple with no JVD without lymph nodes. Tracheostomy site is clean. LUNGS: Clear without rhonchi, rales, or wheezing. Secretions are small, thick, and zavala. HEART: Normal sounds with irregular heart beats. There is tachycardia at rest, sinus tachycardia on monitor. ABDOMEN: Soft and nontender with normal bowel sounds. Gastrostomy site is clean. EXTREMITIES: Warm without cyanosis, clubbing, or edema. LABORATORY AND DIAGNOSTIC DATA: Hemoglobin is 13.6, hematocrit is 40.4 with MCV of 93, WBC of 6.7, and platelets is 186. His BUN and creatinine is 14 and 0.6 respectively. His sodium is 138, potassium 3.0, chloride 104, CO2 is 28, 2.4. His total bilirubin is 1.4. SGOT, SGPT, and alkaline phosphatase are normal. Albumin is 2.6. Total protein is 6.5. . The patient has right lower lobe pneumonia. PLAN: He will be seen today by Infectious Disease specialist. We will continue the patient on Zosyn 3.375 gram IV piggyback q.6 h. and vancomycin . Repeat laboratory tests will be done in the morning. Mireille Groves M.D. DR: ALISTAIR JOB#: [id number] CC:
--- NOTE | 2017-10-30 10:11 | General Progress Note ---
Assessment/Plan Status: stable Assessment/Plan #. Leukocytosis, secondary to underlying dehydration, to closely monitor for improvement. Also 2/2 recent intubation --> Continue to closely monitor. --> 10/30: wbc 8.0 wnl --> Pt remains on IV abx. ID follow up. #. Thrombocytopenia - potentially related to infection. Currently stable. --> hep and hiv are both negative --> smear reviewed, no schitocytes --> no recent heparin administration --> 10/27: HIDA scan negative. --> 10/30: PLT 174, wnl. #. Hyperproteinemia. protein elevated on admission --> spep has been reviewed and is wnl #. G-tube malfunction, referred to gastrointestinal team. --> gtube feedings as needed #. Chronic respiratory failure, status post intubation/trach. #. Erythema around the G-tube site with potential cellulitis, has been seen by ID Service. --> Cultures: Gram + cocci --> s/p abx, Appreciate id recs #. Seizure disorder - to see neuro prnl --> ativan prn and keprra The time the note was entered does not necessarily correspond to the time the patient was seen. Subjective Date patient seen: Oct 30, 2017 ROS Limited/Unobtainable: Yes Allergies: Coded Allergies: SULFAMETHOXAZOLE (Verified Allergy, Unknown, 10/18/17) TRIMETHOPRIM (Verified Allergy, Unknown, 10/18/17) All Systems: reviewed and negative except above Subjective Pt remains on vent. No acute events. Tachy. Objective Last 24 Hour Vital Signs Date Time Temp Pulse Resp B/P (MAP) Pulse Ox O2 Delivery O2 Flow Rate FiO2 10/30/17 08:40 93 15 30 10/30/17 08:17 90 10/30/17 08:00 30 10/30/17 08:00 Mechanical Ventilator 10/30/17 08:00 97.9 96 22 101/61 (74) 98 97.9 10/30/17 07:17 95 20 30 10/30/17 04:50 93 15 30 10/30/17 04:00 Mechanical Ventilator 10/30/17 04:00 98 10/30/17 04:00 30 10/30/17 04:00 98.7 98 20 110/64 (79) 98 98.7 10/30/17 02:35 102 15 30 10/30/17 00:57 101 15 30 10/30/17 00:00 Mechanical Ventilator 10/30/17 00:00 98.5 104 15 139/78 (98) 99 98.5 10/30/17 00:00 101 10/29/17 23:11 105 19 30 10/29/17 21:15 119 103/57 10/29/17 21:14 123 31 30 10/29/17 20:00 99.2 129 22 106/66 (79) 97 99.2 10/29/17 20:00 30 10/29/17 20:00 Mechanical Ventilator 10/29/17 19:50 126 10/29/17 19:00 122 33 30 10/29/17 17:24 102 17 30 10/29/17 16:00 30 10/29/17 16:00 90 10/29/17 16:00 98.2 96 21 124/73 (90) 96 98.2 10/29/17 16:00 Mechanical Ventilator 10/29/17 15:30 98 16 30 10/29/17 13:24 106 17 30 10/29/17 12:01 81 10/29/17 12:00 Mechanical Ventilator 10/29/17 12:00 97.2 86 18 91/50 (64) 98 97.2 10/29/17 12:00 30 10/29/17 11:18 82 15 30 Intake and Output 10/29/17 10/30/17 19:00 07:00 Intake Total 1520.0 ml 790 ml Output Total 1600 ml Balance -80.0 ml 790 ml Free Water 150 ml 130 ml IV Total 710.0 ml Tube Feeding 660 ml 660 ml Output Urine Total 1600 ml # Voids 1 # Bowel Movements 5 53 Laboratory Tests 10/30/17 04:30: White Blood Count 8.0, Red Blood Count 4.08L, Hemoglobin 13.4L, Hematocrit 38.4L , Mean Corpuscular Volume 94, Mean Corpuscular Hemoglobin 32.8H, Mean Corpuscular Hemoglobin Concent 34.9, Red Cell Distribution Width 12.2, Platelet Count 174, Mean Platelet Volume 7.5, Neutrophils (%) (Auto) 70.7, Lymphocytes (% ) (Auto) 18.5L, Monocytes (%) (Auto) 7.6, Eosinophils (%) (Auto) 2.6, Basophils (%) (Auto) 0.6, Sodium Level 140, Potassium Level 3.0L, Chloride Level 106, Carbon Dioxide Level 28, Anion Gap 6, Blood Urea Nitrogen 12, Creatinine 0.6, Estimat Glomerular Filtration Rate > 60, Glucose Level 140H, Calcium Level 8.0L , Total Bilirubin 1.0, Aspartate Amino Transf (AST/SGOT) 31, Alanine Aminotransferase (ALT/SGPT) 35, Alkaline Phosphatase 278H, Pro-B-Type Natriuretic Peptide 294H, Total Protein 6.2L, Albumin 2.3L, Globulin 3.9, Albumin/Globulin Ratio 0.6L Height (Feet): 5 Height (Inches): 9.00 Weight (Pounds): 178 General Appearance: no apparent distress EENT: PERRL/EOMI Neck: normal alignment Cardiovascular: tachycardia Respiratory/Chest: no respiratory distress Abdomen: soft Reid Grajeda MD Oct 30, 2017 10:11
--- NOTE | 2017-10-30 10:24 | General Progress Note ---
Assessment/Plan Assessment/Plan s/p J tube placement GT site cellulitis hepatitis panel negative no anemia supportive care GT site care TID, would care per surgical GTFs per RD electrolyte correction zofran prn abx per ID trend LFTs fu labs dc planning Subjective ROS Limited/Unobtainable: No Allergies: Coded Allergies: SULFAMETHOXAZOLE (Verified Allergy, Unknown, 10/18/17) TRIMETHOPRIM (Verified Allergy, Unknown, 10/18/17) Objective Last 24 Hour Vital Signs Date Time Temp Pulse Resp B/P (MAP) Pulse Ox O2 Delivery O2 Flow Rate FiO2 10/30/17 08:40 93 15 30 10/30/17 08:17 90 10/30/17 08:00 30 10/30/17 08:00 Mechanical Ventilator 10/30/17 08:00 97.9 96 22 101/61 (74) 98 97.9 10/30/17 07:17 95 20 30 10/30/17 04:50 93 15 30 10/30/17 04:00 Mechanical Ventilator 10/30/17 04:00 98 10/30/17 04:00 30 10/30/17 04:00 98.7 98 20 110/64 (79) 98 98.7 10/30/17 02:35 102 15 30 10/30/17 00:57 101 15 30 10/30/17 00:00 Mechanical Ventilator 10/30/17 00:00 98.5 104 15 139/78 (98) 99 98.5 10/30/17 00:00 101 10/29/17 23:11 105 19 30 10/29/17 21:15 119 103/57 10/29/17 21:14 123 31 30 10/29/17 20:00 99.2 129 22 106/66 (79) 97 99.2 10/29/17 20:00 30 10/29/17 20:00 Mechanical Ventilator 10/29/17 19:50 126 10/29/17 19:00 122 33 30 10/29/17 17:24 102 17 30 10/29/17 16:00 30 10/29/17 16:00 90 10/29/17 16:00 98.2 96 21 124/73 (90) 96 98.2 10/29/17 16:00 Mechanical Ventilator 10/29/17 15:30 98 16 30 10/29/17 13:24 106 17 30 10/29/17 12:01 81 10/29/17 12:00 Mechanical Ventilator 10/29/17 12:00 97.2 86 18 91/50 (64) 98 97.2 10/29/17 12:00 30 10/29/17 11:18 82 15 30 Intake and Output 10/29/17 10/30/17 19:00 07:00 Intake Total 1520.0 ml 790 ml Output Total 1600 ml Balance -80.0 ml 790 ml Free Water 150 ml 130 ml IV Total 710.0 ml Tube Feeding 660 ml 660 ml Output Urine Total 1600 ml # Voids 1 # Bowel Movements 5 53 Laboratory Tests 10/30/17 04:30: White Blood Count 8.0, Red Blood Count 4.08L, Hemoglobin 13.4L, Hematocrit 38.4L , Mean Corpuscular Volume 94, Mean Corpuscular Hemoglobin 32.8H, Mean Corpuscular Hemoglobin Concent 34.9, Red Cell Distribution Width 12.2, Platelet Count 174, Mean Platelet Volume 7.5, Neutrophils (%) (Auto) 70.7, Lymphocytes (% ) (Auto) 18.5L, Monocytes (%) (Auto) 7.6, Eosinophils (%) (Auto) 2.6, Basophils (%) (Auto) 0.6, Sodium Level 140, Potassium Level 3.0L, Chloride Level 106, Carbon Dioxide Level 28, Anion Gap 6, Blood Urea Nitrogen 12, Creatinine 0.6, Estimat Glomerular Filtration Rate > 60, Glucose Level 140H, Calcium Level 8.0L , Total Bilirubin 1.0, Aspartate Amino Transf (AST/SGOT) 31, Alanine Aminotransferase (ALT/SGPT) 35, Alkaline Phosphatase 278H, Pro-B-Type Natriuretic Peptide 294H, Total Protein 6.2L, Albumin 2.3L, Globulin 3.9, Albumin/Globulin Ratio 0.6L Height (Feet): 5 Height (Inches): 9.00 Weight (Pounds): 178 General Appearance: no apparent distress EENT: normal ENT inspection Neck: supple Cardiovascular: normal rate Respiratory/Chest: decreased breath sounds Abdomen: normal bowel sounds, non tender, soft Extremities: non-tender Kvng Lehman MD Oct 30, 2017 10:24
--- NOTE | 2017-10-30 11:47 | Cardiology Progress Note ---
Assessment/Plan Status: stable Assessment/Plan Assessment: (1) Sepsis (2) Chronic respiratory failure (3) Gastrostomy site leak (4) Seizures (5) Quadriplegia Plan: Continue wound care Trach care/G tube care Supportive care Continue keppra for seizures No indication for cardiac cath Stress test when stable Continue antibiotics for ten days per ID PICC line placed Replete electrolytes Physical therapy Sinus tachycardia noted, no treatment needed Dispo planning Subjective Cardiovascular: Reports: no symptoms Respiratory: Reports: no symptoms Gastrointestinal/Abdominal: Reports: no symptoms Genitourinary: Reports: no symptoms Subjective No acute events, afebrile, tachycardic, on vent, receiving g tube feeds. Abx running. HIDA scan negative. Chest x ray with Minimal left basilar atelectasis. Equivocal trace right pleural effusion. PICC line placed Hypotensive currently, Potassium low, WBC normal. Objective Last 24 Hour Vital Signs Date Time Temp Pulse Resp B/P (MAP) Pulse Ox O2 Delivery O2 Flow Rate FiO2 10/30/17 08:40 93 15 30 10/30/17 08:17 90 10/30/17 08:00 30 10/30/17 08:00 Mechanical Ventilator 10/30/17 08:00 97.9 96 22 101/61 (74) 98 97.9 10/30/17 07:17 95 20 30 10/30/17 04:50 93 15 30 10/30/17 04:00 Mechanical Ventilator 10/30/17 04:00 98 10/30/17 04:00 30 10/30/17 04:00 98.7 98 20 110/64 (79) 98 98.7 10/30/17 02:35 102 15 30 10/30/17 00:57 101 15 30 10/30/17 00:00 Mechanical Ventilator 10/30/17 00:00 98.5 104 15 139/78 (98) 99 98.5 10/30/17 00:00 101 10/29/17 23:11 105 19 30 10/29/17 21:15 119 103/57 10/29/17 21:14 123 31 30 10/29/17 20:00 99.2 129 22 106/66 (79) 97 99.2 10/29/17 20:00 30 10/29/17 20:00 Mechanical Ventilator 10/29/17 19:50 126 10/29/17 19:00 122 33 30 8/8/18 17:24 102 17 30 10/29/17 16:00 30 10/29/17 16:00 90 10/29/17 16:00 98.2 96 21 124/73 (90) 96 98.2 10/29/17 16:00 Mechanical Ventilator 10/29/17 15:30 98 16 30 10/29/17 13:24 106 17 30 10/29/17 12:01 81 10/29/17 12:00 Mechanical Ventilator 10/29/17 12:00 97.2 86 18 91/50 (64) 98 97.2 10/29/17 12:00 30 General Appearance: no apparent distress, on vent EENT: PERRL/EOMI, normal ENT inspection Neck: non-tender, normal alignment, supple, normal inspection, abnormal alignment Rhythm: ST Cardiovascular: normal peripheral pulses, normal rate, regular rhythm, tachycardia Respiratory/Chest: chest wall non-tender, lungs clear, normal breath sounds, no respiratory distress, no accessory muscle use Abdomen: normal bowel sounds, non tender, soft, no organomegaly, no mass Extremities: normal range of motion, non-tender Neurologic: rate manager II-XII grossly normal, motor weakness Intake and Output 10/29/17 10/30/17 19:00 07:00 Intake Total 1520.0 ml 900 ml Output Total 1600 ml Balance -80.0 ml 900 ml Free Water 150 ml 130 ml IV Total 710.0 ml 50 ml Tube Feeding 660 ml 720 ml Output Urine Total 1600 ml # Voids 1 # Bowel Movements 5 53 Laboratory Tests Test 10/30/17 04:30 White Blood Count 8.0 K/UL (4.8-10.8) Red Blood Count 4.08 M/UL (4.70-6.10) L Hemoglobin 13.4 G/DL (14.2-18.0) L Hematocrit 38.4 % (42.0-52.0) L Mean Corpuscular Volume 94 FL (80-99) Mean Corpuscular Hemoglobin 32.8 PG (27.0-31.0) H Mean Corpuscular Hemoglobin Concent 34.9 G/DL (32.0-36.0) Red Cell Distribution Width 12.2 % (11.6-14.8) Platelet Count 174 K/UL (150-450) Mean Platelet Volume 7.5 FL (6.5-10.1) Neutrophils (%) (Auto) 70.7 % (45.0-75.0) Lymphocytes (%) (Auto) 18.5 % (20.0-45.0) L Monocytes (%) (Auto) 7.6 % (1.0-10.0) Eosinophils (%) (Auto) 2.6 % (0.0-3.0) Basophils (%) (Auto) 0.6 % (0.0-2.0) Sodium Level 140 MMOL/L (136-145) Potassium Level 3.0 MMOL/L (3.5-5.1) L Chloride Level 106 MMOL/L (98-107) Carbon Dioxide Level 28 MMOL/L (21-32) Anion Gap 6 mmol/L (5-15) Blood Urea Nitrogen 12 mg/dL (7-18) Creatinine 0.6 MG/DL (0.55-1.30) Estimat Glomerular Filtration Rate > 60 mL/min (>60) Glucose Level 140 MG/DL (74-106) H Calcium Level 8.0 MG/DL (8.5-10.1) L Total Bilirubin 1.0 MG/DL (0.2-1.0) Aspartate Amino Transf (AST/SGOT) 31 U/L (15-37) Alanine Aminotransferase (ALT/SGPT) 35 U/L (12-78) Alkaline Phosphatase 278 U/L (46-116) H Pro-B-Type Natriuretic Peptide 294 pg/mL (0-125) H Total Protein 6.2 G/DL (6.4-8.2) L Albumin 2.3 G/DL (3.4-5.0) L Globulin 3.9 g/dL Albumin/Globulin Ratio 0.6 (1.0-2.7) L Nikita Reddy M.D. Oct 30, 2017 11:47
[2017-10-30 12:00] VITALS: BP 97/52
--- NOTE | 2017-10-30 12:34 | Diagnostic Imaging Report ---
Indication: Dyspnea Technique: One view of the chest Comparison: 10/27/2017 Findings: There is atelectasis at the left lung base. Lungs and pleural spaces are otherwise clear. Interim placement of right arm PICC. The heart size is normal. Inspiration is suboptimal. Tracheostomy is again demonstrated Impression: Hypoventilatory exam with left basilar atelectasis No acute process otherwise
--- NOTE | 2017-10-30 15:54 | Pulmonolgy Critical Care Note ---
Critical Care - Asmt/Plan Problems: (1) Sepsis (2) Chronic respiratory failure (3) Gastrostomy site leak (4) Seizures (5) Quadriplegia Respiratory: adjust tidal volume, adjust FIO2 Cardiac: stop pressors Infectious Disease: check cultures Gastrointestinal: hold feedings Endocrine: monitor blood sugar Neurologic: PRN Ativan, keep patient comfortable Affect: PRN ativan Prophylaxis: Heparin Time Spent (Minutes): 40 Notes Reviewed: cardio Discussed with: nurses, consultants, caseworker intakeconsumer affairs manager - Objective Last 24 Hour Vital Signs Date Time Temp Pulse Resp B/P (MAP) Pulse Ox O2 Delivery O2 Flow Rate FiO2 10/30/17 14:45 90 15 30 10/30/17 12:36 98 20 30 10/30/17 12:00 30 10/30/17 12:00 93 10/30/17 12:00 98.1 94 18 97/52 (67) 99 98.1 10/30/17 12:00 Mechanical Ventilator 10/30/17 11:57 93 20 30 10/30/17 08:40 93 15 30 10/30/17 08:17 90 10/30/17 08:00 30 10/30/17 08:00 Mechanical Ventilator 10/30/17 08:00 97.9 96 22 101/61 (74) 98 97.9 10/30/17 07:17 95 20 30 10/30/17 04:50 93 15 30 10/30/17 04:00 Mechanical Ventilator 10/30/17 04:00 98 10/30/17 04:00 30 10/30/17 04:00 98.7 98 20 110/64 (79) 98 98.7 10/30/17 02:35 102 15 30 10/30/17 00:57 101 15 30 10/30/17 00:00 Mechanical Ventilator 10/30/17 00:00 98.5 104 15 139/78 (98) 99 98.5 10/30/17 00:00 101 10/29/17 23:11 105 19 30 10/29/17 21:15 119 103/57 10/29/17 21:14 123 31 30 10/29/17 20:00 99.2 129 22 106/66 (79) 97 99.2 10/29/17 20:00 30 10/29/17 20:00 Mechanical Ventilator 10/29/17 19:50 126 10/29/17 19:00 122 33 30 10/29/17 17:24 102 17 30 10/29/17 16:00 30 10/29/17 16:00 90 10/29/17 16:00 98.2 96 21 124/73 (90) 96 98.2 10/29/17 16:00 Mechanical Ventilator Status: awake Condition: critical Neck: full ROM Heart: HR/BP stable Abdomen: soft, active bowel sounds Extremities: edema Critical Care - Subjective ROS Limited/Unobtainable: Yes Condition: critical FI02: 30 Vent Support Breath Rate: 15 Vent Support Mode: AC Vent Tidal Volume: 500 Sputum Amount: Small PEEP: 0.0 PIP: 42 Tube Feeding Amount: 60 I&O: Intake and Output 10/29/17 10/30/17 19:00 07:00 Intake Total 1520.0 ml 900 ml Output Total 1600 ml Balance -80.0 ml 900 ml Free Water 150 ml 130 ml IV Total 710.0 ml 50 ml Tube Feeding 660 ml 720 ml Output Urine Total 1600 ml # Voids 1 # Bowel Movements 5 53 Labs: Laboratory Tests Test 10/30/17 04:30 White Blood Count 8.0 K/UL (4.8-10.8) Red Blood Count 4.08 M/UL (4.70-6.10) L Hemoglobin 13.4 G/DL (14.2-18.0) L Hematocrit 38.4 % (42.0-52.0) L Mean Corpuscular Volume 94 FL (80-99) Mean Corpuscular Hemoglobin 32.8 PG (27.0-31.0) H Mean Corpuscular Hemoglobin Concent 34.9 G/DL (32.0-36.0) Red Cell Distribution Width 12.2 % (11.6-14.8) Platelet Count 174 K/UL (150-450) Mean Platelet Volume 7.5 FL (6.5-10.1) Neutrophils (%) (Auto) 70.7 % (45.0-75.0) Lymphocytes (%) (Auto) 18.5 % (20.0-45.0) L Monocytes (%) (Auto) 7.6 % (1.0-10.0) Eosinophils (%) (Auto) 2.6 % (0.0-3.0) Basophils (%) (Auto) 0.6 % (0.0-2.0) Sodium Level 140 MMOL/L (136-145) Potassium Level 3.0 MMOL/L (3.5-5.1) L Chloride Level 106 MMOL/L (98-107) Carbon Dioxide Level 28 MMOL/L (21-32) Anion Gap 6 mmol/L (5-15) Blood Urea Nitrogen 12 mg/dL (7-18) Creatinine 0.6 MG/DL (0.55-1.30) Estimat Glomerular Filtration Rate > 60 mL/min (>60) Glucose Level 140 MG/DL (74-106) H Calcium Level 8.0 MG/DL (8.5-10.1) L Total Bilirubin 1.0 MG/DL (0.2-1.0) Aspartate Amino Transf (AST/SGOT) 31 U/L (15-37) Alanine Aminotransferase (ALT/SGPT) 35 U/L (12-78) Alkaline Phosphatase 278 U/L (46-116) H Pro-B-Type Natriuretic Peptide 294 pg/mL (0-125) H Total Protein 6.2 G/DL (6.4-8.2) L Albumin 2.3 G/DL (3.4-5.0) L Globulin 3.9 g/dL Albumin/Globulin Ratio 0.6 (1.0-2.7) L Mellissa Garcia MD Oct 30, 2017 15:54
[2017-10-30 16:00] VITALS: BP 105/61
[2017-10-30] MEDS ORDERED: D5 1/2NS 1000ml IV ONE (17:47)
[2017-10-30] MEDS ORDERED: Tubing IV Secondary IV ONE (17:47)
[2017-10-30] MEDS ORDERED: NS 275ml ONE (17:47)
--- NOTE | 2017-10-31 13:32 | Discharge Summary ---
Discharge Summary Discharge Summary _ DATE OF ADMISSION: 10/17/2017 DATE OF DISCHARGE: 10/30/2017 CONSULTANTS: Dr. Mellissa Gomez BRIEF HOSPITAL COURSE: Patient is a 56-year-old male, with history of respiratory failure, tracheostomy , history of G-tube, half-way resident presented to ED due to G-tube leakage. Patient had recent G-tube removal and was noted to have persistent drainage coming out from the G-tube stoma. He was then admitted for further evaluation. He was seen by ID, he was started empirically on IV vancomycin and Zosyn. Surgical evaluation was done. There was no acute surgical intervention necessary. Patient was given wound/skin care. GI was consulted for possible PEG tube placement. NG tube was inserted. On 03/2017, he underwent EGD with successful placement of J-tube. Wound culture showed growth of MRSA and Klebsiella. He was continued on antibiotics. He has history of seizure disorder and was continued on Keppra. He had gross hematuria. Urologist was consulted. Dietrich catheter was flushed. Hematuria was mild. He was continued on hydration. He had episodes of low-grade fever. He was continued on Zosyn. Cellulitis improved. HIDA scan was negative. Chest x-ray showed left basilar atelectasis otherwise no acute process. Fever eventually resolved. There was no leukocytosis. Patient was eventually cleared for discharge back to half-way. FINAL DIAGNOSES: Sepsis Acute on chronic respiratory failure G-tube leak/malfunction status post J-tube placement G-tube cellulitis Seizures Functional quadriplegia Thrombocytopenia Hyperproteinemia Dysphagia on G-tube group home resident Mild hematuria resolved Elevated liver function tests DISPOSITION: Patient was discharged to [facility]. DISCHARGE MEDICATIONS: Refer to Discharge Medication List. I have been assigned to dictate discharge summary on this account, and I was not involved in the patient's management. Zoey Huertas NP Oct 31, 2017 13:32
== END 2017-10-30 18:16 | DRG 252 ==
LOC: EDBD 20:56 → EMR 21:38 → 4W 22:02 → EDBEDREQ 22:50 → ICU 10-19 01:28 → 2W 10-22 15:05
DX: K94.23 Gastrostomy malfunction (principal); Z99.11 Dependence on respirator [ventilator] status; G82.50 Quadriplegia, unspecified; A41.9 Sepsis, unspecified organism; J18.9 Pneumonia, unspecified organism; J96.10 Chronic respiratory failure, unspecified whether with hypoxia or hypercapnia; Z93.0 Tracheostomy status; D69.6 Thrombocytopenia, unspecified; K94.22 Gastrostomy infection; L03.311 Cellulitis of abdominal wall; R13.10 Dysphagia, unspecified; E86.0 Dehydration; R74.0 Nonspecific elevation of levels of transaminase and lactic acid dehydrogenase [LDH]; R31.0 Gross hematuria; K29.60 Other gastritis without bleeding; E88.09 Other disorders of plasma-protein metabolism, not elsewhere classified; G40.909 Epilepsy, unspecified, not intractable, without status epilepticus; R94.5 Abnormal results of liver function studies
CPT/HCPCS: 36415; 36569; 36600; 71045; 74018; 76700; 76937; 78266; 80053; 80202; 81050; 81270; 82248; 82803; 82962; 83690; 83735; 83880; 84100; 84165; 84484; 85007; 85025; 85610; 85651; 85730; 86140; 86703; 86705; 86709; 86803; 86850; 86900; 86901; 87070; 87081; 87181; 87205; 87340; 94002; 94003; 94150; 94664; 94760; J2250; J8499

== ENCOUNTER 2018-10-23 08:56 | Inpatient (IN) | payer OTHER ==
[~2018-10-23] VITALS: Ht 177.8 cm; Wt 91.6 kg
[2018-10-23] VITALS (11 sets, daily range): BP systolic 67–130; BP diastolic 53–85
[~2018-10-23 08:56] MED LIST: ACETAMINOPHEN120 MG PO; ALBUTEROL2.5 MG/3 M INH; ARTIFICIAL TEAR15 ML BOTH EYES; ASPIRIN300 MG PO; BACLOFEN10 MG ORAL; COLACE100 MG GT; FAMOTIDINE20 MG GT; GABAPENTIN300 MG/61 GT; LEVETIRACE500 MG/100 ORAL; LIPITOR80 MG ORAL; MAGNESIUM400 M2 PO; METOPROLOL TART50 MG ORAL; MILK OF MA400 MG/51 GT; MULTIVITAM9 MG/15 M2 GT; NORCO 5-325 TA1 EACH GT; PRO-STAT LIQUID30 ML ORAL; SYNTHROID200 MC1 PO; VITAMIN C500 M1 GT; VITAMIN C500 M1 ORAL; VITAMIN D1000 UNI1 GT
--- NOTE | 2018-10-23 09:00 | NUR ---
ED Nurse Note: PAtient brought in by ambulance RA [facility] from [facility] due to active seizure that lasted about 10-15 minutes. patient was given Versed 5mg x2 IM en route, seizure uncontrollable per EMS. patient has trach, non verbal, bed ridden. seizure precaution applied.
--- NOTE | 2018-10-23 09:00 | NUR ---
ED Nurse Note: notified Dr. Montanez regarding patient's vital signs
--- NOTE | 2018-10-23 09:00 | NUR ---
RESPIRATORY NOTE: Received pt on trach collar 4L 36%FiO2, pt saturated at 96%. Dr. Montanez wants to put pt on vent with setting : AC 14-500ml-50%- no peep. Inform Dr. Montanez that pt has trach Shiley XLT uncuffed size 6.0, pt can't get a set tidal volume, Vt around 230-[address] Montanez still wants to keep pt on vent for now, no trach change. Pt is obtunded, and tolerating well the vent even not getting full 500ml Vt. No SOB or resp distress noted. Calin rhonchi B/S hear upon auscultation, tracheal suctioned large amount of thin bhatia yellow bloody secretions without incidents. Alarms are set and audible, vent is plugged into the red outlet, ambu bag is at bedside. Will continue to monitor pt.
[2018-10-23] MEDS ORDERED: KEPPRA500 M4 GT (09:01)
[2018-10-23] MEDS ORDERED: LORazepam Inj 2mg/ml 1ml IV ONE (09:15)
[2018-10-23] MEDS ORDERED: levETIRAcetam 1,000mg/NS100ml 100 ML IVPB ONE (09:15)
--- NOTE | 2018-10-23 09:36 | NUR ---
ED Nurse Note: notified Dr. Montanez regarding patient's vital signs.
[2018-10-23 09:42] LABS: ANION GAP 6 mmol/L (5-15); BLOOD UREA NITROGEN 17 mg/dL (7-18); CALCIUM 9.1 MG/DL (8.5-10.1); CARBON DIOXIDE 28 MMOL/L (21-32); CHLORIDE 102 MMOL/L (98-107); CREATININE 0.5 MG/DL (0.55-1.30); POTASSIUM 3.7 MMOL/L (3.5-5.1); SODIUM 136 MMOL/L (136-145)
[2018-10-23 09:51] LABS: BASOPHILS % (AUTO) 0.5 % (0.0-2.0); EOSINOPHILS % (AUTO) 1.5 % (0.0-3.0); HEMATOCRIT 47.4 % (42.0-52.0); HEMOGLOBIN 14.8 G/DL (14.2-18.0); LYMPHOCYTES % (AUTO) 18.5 % (20.0-45.0); MEAN CORPUSCULAR VOLUME 91 FL (80-99); MONOCYTES % (AUTO) 8.9 % (1.0-10.0); NEUTROPHILS % (AUTO) 70.6 % (45.0-75.0); PLATELET COUNT 103 K/UL (150-450); RED BLOOD COUNT 5.24 M/UL (4.70-6.10); WHITE BLOOD COUNT 6.6 K/UL (4.8-10.8)
[2018-10-23 09:52] LABS: ALANINE AMINOTRANSFERASE 95 U/L (12-78); ALBUMIN 3.3 G/DL (3.4-5.0); ALBUMIN/GLOBULIN RATIO 0.8 (1.0-2.7); ALKALINE PHOSPHATASE 757 U/L (46-116); ASPARTATE AMINO TRANSFERASE 86 U/L (15-37); BILIRUBIN,TOTAL 1.1 MG/DL (0.2-1.0)
--- NOTE | 2018-10-23 10:01 | NUR ---
ED Nurse Note: [phone] Stephanie
[2018-10-23 10:17] LABS: BILIRUBIN,DIRECT 0.4 MG/DL (0.0-0.3)
--- NOTE | 2018-10-23 10:40 | Emergency Room Report ---
History of Present Illness General Chief Complaint: Seizure Source: Medical Record, EMS Present Illness HPI Patient is a 57-year-old male brought in by EMS after persistent seizure. Patient had prior history of seizure disorder as well as polyneuropathy. He was noted to have seizure activity lasting approximately 15 minutes. He had been given 10 mg of Versed by EMS prior to arrival. He was noted to be taking Keppra regularly. Patient is tracheostomy and G-tube dependent. He is not chronically ventilated. And usually uses a trach collar. Allergies: Coded Allergies: SULFAMETHOXAZOLE (Verified Allergy, Unknown, 10/18/17) TRIMETHOPRIM (Verified Allergy, Unknown, 10/18/17) UNABLE TO ASSESS (Unverified , 10/23/18) Patient History Past Medical History: see triage record, seizures Reviewed Nursing Documentation: PMH: Agreed; PSxH: Agreed Nursing Documentation-PMH Past Medical History: No History, Except For Hx Hypertension: Yes Hx Asthma: No - ACUTE RESPIRATORY FAILURE, TRACH Hx COPD: Yes Hx Cancer: No Hx Gastrointestinal Problems: Yes - GERD Hx Neurological Problems: Yes - NEUROMUSCLAR DYSNFUNCTION OF BLADDER, POLYNEUROPATHY Hx Seizures: Yes - EPILEPSY Hx Epilepsy: Yes Review of Systems All Other Systems: limited - by Physical Exam Vital Signs Date Time Temp Pulse Resp B/P (MAP) Pulse Ox O2 Delivery O2 Flow Rate FiO2 10/23/18 08:51 99 18 93/63 (73) 90 Room Air 10/23/18 09:00 4.0 10/23/18 09:36 94.5 General Appearance: moderate distress, obese, Chronically Ill ENT: normal pharynx Neck: limited range of motion, tracheotomy Respiratory: chest non-tender Cardiovascular #1: regular rate, rhythm Gastrointestinal: normal inspection, other - gtube Musculoskeletal: decreased range of motion, other - contracted Neurologic: aphasia, motor weakness Skin: no rash Procedures Critical Care Time Critical Care Time Patient had a critical medical condition which untreated could potentially result in life or limb threatening injury. Total critical care time excluding procedures approximately 45 minutes. Medical Decision Making Diagnostic Impression: Primary Impression: Status epilepticus Additional Impressions: Hypotension Chronic respiratory failure ER Course Patient presented for persistent seizures. Differential diagnosis include was not limited to status epilepticus, electrolyte abnormality, INH toxicity, among others. Because of complexity of patient's case laboratory testing and imaging studies were ordered.Patient was noted to have persistent seizures. He was given IV Versed in the field. Patient was given IV Keppra and started on IV fluids due to hypotension. He was noted to continue to be hypotensive. He was made initiated on mechanical ventilation. Chest x-ray one view showed hypoventilatory film without evident infiltrate. Patient was noted to have normal white blood count. Dr. Bruno Ko was contacted for inpatient management due to covering physician for Dr. Groves. Labs Test 10/23/18 09:02 White Blood Count 6.6 K/UL (4.8-10.8) Red Blood Count 5.24 M/UL (4.70-6.10) Hemoglobin 14.8 G/DL (14.2-18.0) Hematocrit 47.4 % (42.0-52.0) Mean Corpuscular Volume 91 FL (80-99) Mean Corpuscular Hemoglobin 28.2 PG (27.0-31.0) Mean Corpuscular Hemoglobin Concent 31.2 G/DL (32.0-36.0) Red Cell Distribution Width 21.0 % (11.6-14.8) Platelet Count 103 K/UL (150-450) Mean Platelet Volume 7.3 FL (6.5-10.1) Neutrophils (%) (Auto) 70.6 % (45.0-75.0) Lymphocytes (%) (Auto) 18.5 % (20.0-45.0) Monocytes (%) (Auto) 8.9 % (1.0-10.0) Eosinophils (%) (Auto) 1.5 % (0.0-3.0) Basophils (%) (Auto) 0.5 % (0.0-2.0) Sodium Level 136 MMOL/L (136-145) Potassium Level 3.7 MMOL/L (3.5-5.1) Chloride Level 102 MMOL/L (98-107) Carbon Dioxide Level 28 MMOL/L (21-32) Anion Gap 6 mmol/L (5-15) Blood Urea Nitrogen 17 mg/dL (7-18) Creatinine 0.5 MG/DL (0.55-1.30) Estimat Glomerular Filtration Rate > 60 mL/min (>60) Glucose Level 90 MG/DL (74-106) Calcium Level 9.1 MG/DL (8.5-10.1) Total Bilirubin 1.1 MG/DL (0.2-1.0) Direct Bilirubin 0.4 MG/DL (0.0-0.3) Aspartate Amino Transf (AST/SGOT) 86 U/L (15-37) Alanine Aminotransferase (ALT/SGPT) 95 U/L (12-78) Alkaline Phosphatase 757 U/L (46-116) Troponin I 0.000 ng/mL (0.000-0.056) Total Protein 7.7 G/DL (6.4-8.2) Albumin 3.3 G/DL (3.4-5.0) Globulin 4.4 g/dL Albumin/Globulin Ratio 0.8 (1.0-2.7) Phenytoin (Dilantin) Level 0.6 ug/mL (10-20) Phenobarbital Level < 1.0 ug/mL (15-40) Last Vital Signs Date Time Temp Pulse Resp B/P (MAP) Pulse Ox O2 Delivery O2 Flow Rate FiO2 10/23/18 10:04 94.5 78 15 88/58 98 Mechanical Ventilator 10/23/18 09:00 4.0 Status: improved Disposition: ADMITTED INPATIENT Condition: Critical Referrals: Mireille Groves MD (PCP) Jd Montanez MD Oct 23, 2018 10:40
--- NOTE | 2018-10-23 10:43 | NUR ---
ED Nurse Note: notified Dr. Montanez that patient has suprapubic catheter and patient has very little urinary output, unable to obtain urine sample at this time.
--- NOTE | 2018-10-23 11:12 | NUR ---
Sally feng in EDM - 10/23/18 at 1113 by JUNOO ED Nurse Note: called 2w and spoke with Iram, placed on hold for >5 minutes. will call back later.
[2018-10-23] MEDS ORDERED: Nitroglycerin Subl 0.4mg tab SL PRN (11:15)
[2018-10-23] MEDS ORDERED: LORazepam Inj 2mg/ml 1ml IV PRN (11:15)
[2018-10-23] MEDS ORDERED: Albuterol/Ipratropium 3ml neb HHN PRN (11:15)
--- NOTE | 2018-10-23 11:23 | Diagnostic Imaging Report ---
Indication: Shortness of breath Technique: One view of the chest Comparison: 10/30/2017 Findings: The left hemidiaphragm is elevated. The lungs and pleural spaces are clear. There is a tracheostomy again demonstrated. Previously demonstrated PICC is no longer evident Impression: No acute process
--- NOTE | 2018-10-23 11:38 | NUR ---
ED Nurse Note: Called Stephanie, , to receive consent for PICC, unable to reach, left [facility] [place].
[2018-10-23] MEDS ORDERED: Lidocaine 1% Plain 30 ml INJ ONE (11:45)
[2018-10-23] MEDS ORDERED: Heparin1,000 units/500ml Premix(Conc:2 units/ml) IV ONE (11:45)
[2018-10-23] MEDS ORDERED: Gabapentin 300 MG/6 ML Soln ORAL SCH (12:00)
--- NOTE | 2018-10-23 12:11 | NUR ---
ED Nurse Note: Spoken to Stephanie Saldaña and consented for PICC line insertion for the patient.
--- NOTE | 2018-10-23 12:47 | NUR ---
ED Nurse Note: PICC placement being done at bedside
--- NOTE | 2018-10-23 14:10 | NUR ---
RESPIRATORY NOTE: Changed vent settings to AC 16-600ml- 50% FiO2- no peep per Dr. Garcia's order. Pt is tolerating well the new setting. OPAL Olivarez made aware.
--- NOTE | 2018-10-23 14:10 | NUR ---
ED Nurse Note: notified Dr. Montanez regarding patient's rectal temp 92.1F, no new orders given at this time, ok to transfer patient. Dr. Ko by the bedside, also notified about 92.1F rectal temp. warm blankets provided. Dr. Ko also notified Patient's suprapubic catheter not draining any urine at this time, but patient voided, incontinent, unknown if suprapupic cather site is leaking or patient is actually leaking at this time. Dr. Ko ok with this, stated that he will get Dr. Palomino on the consult. changed patient's linen, cleaned him, kept him dry, suprapubic catheter site dressing also changed, will endorse to ELECTRICAL INTEGRATOR.
--- NOTE | 2018-10-23 14:11 | NUR ---
ED Nurse Note: called ICU and spoke with Karina CAMARENA, unable to take reaport at this time, call back in 15 minutes.
--- NOTE | 2018-10-23 14:27 | History & Physical ---
History and Physical History & Physicial Bruno Ko MD Oct 23, 2018 14:27
--- NOTE | 2018-10-23 14:33 | NUR ---
ED Nurse Note: called ICU again and spoke with MIGUE king, putting on hold, unable to give report at this time. MIGUE made aware.
--- NOTE | 2018-10-23 14:38 | NUR ---
Social Service Note Patient is a half-way resident of [facility] 11/2014. In SNF was with trach collar. Patient currently put on vent settings in ER. Patient's decision maker is his [id number] Elsie Saldaña [phone] (h) or cell [phone] (c). Code status addressed and patient is full code. Patient will continue to require buttermaker continuous churn placement upon discharge.
--- NOTE | 2018-10-23 15:00 | NUR ---
NURSE NOTES: Report given to Tiarra Cruz RN, Endorsed all plan of care to Tiarra Cruz RN.
--- NOTE | 2018-10-23 15:16 | NUR ---
RESPIRATORY NOTE: Transferred pt to ICU via ambu bag 15L 100%FiO2. Placed pt back to vent with the same setting in ER. Changed trach gauze, trach tie and trach guard. Redness noted around the stoma and the neck. OPAL Cruz at bedside and made aware. Informed OPAL Cruz about the uncuffed Shiley size 6.0 and unable to have full set Vt due to the leak. Awaiting for Dr. Garcia's order regarding the trach. Alarms are set and audible, vent is plugged into the red outlet, ambu bag is at bedside. Pt is stable, no SOB or resp distress noted. Will continue to monitor.
[2018-10-23] MEDS: D5 1/2NS 1,000 ML IV SCH (15:30)
--- NOTE | 2018-10-23 15:30 | NUR ---
NURSE NOTES: Received pt from [facility] weir. transferred from ER via rney to bed 246-G. patient has no belongings. patient is obtunded. bilateral pupils are sluggish, unable to follow commands, no response to painful stimuli but opens eyes without tracking. Very weak gag reflex. Left sided gaze noted. 0/5 BUE strength, 0/5 BLE strength. Seizure precautions in place. patient has an uncuffed trach, Shiley 6.0 connected to vent; AC 16/TV 600/Fio2 60%/0. Ventilator is alarming for low TV due to uncuffed trach. Will notify Dr. Garcia. Skin was cold to touch, VS: rectal temp 91.6, HR 65, Spo2 99%, RR 18, BP 109/68. Placed patient on warming blanket. Pt came with a PICC on ERIC. Skin assessment done, patient has an healed, sacral wound scar. Right foot purple discoloration noted. Pictures taken and uploaded. Patient came with suprapubic catheter, no urine output noted. Urine noted to be leaking from urethra. PEG noted, clamped. Site is slightly oozing with clear/bhatia mucous. x2 IV on left hand accidently pulled out.
--- NOTE | 2018-10-23 16:03 | Cardiac Electrophysiology PN ---
Subjective Subjective [id number] Objective Last 24 Hour Vital Signs Date Time Temp Pulse Resp B/P (MAP) Pulse Ox O2 Delivery O2 Flow Rate FiO2 10/23/18 15:16 66 16 50 10/23/18 14:10 92.1 67 17 110/76 98 Mechanical Ventilator 50 10/23/18 14:10 65 18 50 10/23/18 13:15 94.5 78 18 102/76 98 Mechanical Ventilator 50 10/23/18 12:58 71 14 50 10/23/18 11:20 71 14 50 10/23/18 11:12 94.5 71 14 79/53 98 Mechanical Ventilator 50 10/23/18 10:42 71 14 Mechanical Ventilator 50 10/23/18 10:04 94.5 78 15 88/58 98 Mechanical Ventilator 10/23/18 09:36 94.5 81 17 78/57 98 Mechanical Ventilator 10/23/18 09:00 96 20 67/57 90 Endotracheal Tube 4.0 10/23/18 09:00 88 17 50 10/23/18 08:51 99 18 93/63 (73) 90 Room Air Laboratory Tests Test 10/23/18 09:02 10/23/18 14:54 White Blood Count 6.6 K/UL (4.8-10.8) Red Blood Count 5.24 M/UL (4.70-6.10) Hemoglobin 14.8 G/DL (14.2-18.0) Hematocrit 47.4 % (42.0-52.0) Mean Corpuscular Volume 91 FL (80-99) Mean Corpuscular Hemoglobin 28.2 PG (27.0-31.0) Mean Corpuscular Hemoglobin Concent 31.2 G/DL (32.0-36.0) L Red Cell Distribution Width 21.0 % (11.6-14.8) H Platelet Count 103 K/UL (150-450) L Mean Platelet Volume 7.3 FL (6.5-10.1) Neutrophils (%) (Auto) 70.6 % (45.0-75.0) Lymphocytes (%) (Auto) 18.5 % (20.0-45.0) L Monocytes (%) (Auto) 8.9 % (1.0-10.0) Eosinophils (%) (Auto) 1.5 % (0.0-3.0) Basophils (%) (Auto) 0.5 % (0.0-2.0) Sodium Level 136 MMOL/L (136-145) Potassium Level 3.7 MMOL/L (3.5-5.1) Chloride Level 102 MMOL/L (98-107) Carbon Dioxide Level 28 MMOL/L (21-32) Anion Gap 6 mmol/L (5-15) Blood Urea Nitrogen 17 mg/dL (7-18) Creatinine 0.5 MG/DL (0.55-1.30) L Estimat Glomerular Filtration Rate > 60 mL/min (>60) Glucose Level 90 MG/DL (74-106) Calcium Level 9.1 MG/DL (8.5-10.1) Total Bilirubin 1.1 MG/DL (0.2-1.0) H Direct Bilirubin 0.4 MG/DL (0.0-0.3) H Aspartate Amino Transf (AST/SGOT) 86 U/L (15-37) H Alanine Aminotransferase (ALT/SGPT) 95 U/L (12-78) H Alkaline Phosphatase 757 U/L (46-116) H Troponin I 0.000 ng/mL (0.000-0.056) Total Protein 7.7 G/DL (6.4-8.2) Albumin 3.3 G/DL (3.4-5.0) L Globulin 4.4 g/dL Albumin/Globulin Ratio 0.8 (1.0-2.7) L Phenytoin (Dilantin) Level 0.6 ug/mL (10-20) L Phenobarbital Level < 1.0 ug/mL (15-40) L Urine Color Pending Urine Appearance Pending Urine pH Pending Urine Specific Rohwer Pending Urine Protein Pending Urine Glucose (UA) Pending Urine Ketones Pending Urine Blood Pending Urine Nitrite Pending Urine Bilirubin Pending Urine Urobilinogen Pending Urine Leukocyte Esterase Pending Rai Dobbs MD Oct 23, 2018 16:03
--- NOTE | 2018-10-23 16:20 | NUR ---
NURSE NOTES: Hand irrigated as per Dr. Palomino's order, strong resistance felt, wasn't able to flush any sterile water. Bladder scan done, 99ml residual noted. Notified Dr. Palomino, no new orders given.
--- NOTE | 2018-10-23 16:36 | NUR ---
RIGHT UPPER ARM DUAL LUMEN PICC LINE PLACED BY DR. LLA. FA
--- NOTE | 2018-10-23 17:31 | Diagnostic Imaging Report ---
Indications: Needs long-term IV access Technique: Procedure performed at bedside. Procedural timeout performed. Ultrasound confirms patent compressible right cephalic vein. Total sterile technique, including sterile probe cover and sterile gel, sterile gloves, hand hygiene, hat, mask,, sterile gown, large sterile drape, and preparation with 2% chlorhexidine utilized. Local anesthesia with 1% lidocaine. Under real-time ultrasound guidance, puncture cephalic vein using 21-gauge needle, passage 0.018 guidewire, exchange for 4 [place] peel-away sheath. 4 [place] Bard dual-lumen power PICC cut to cm. It was inserted through the peel-away sheath. Peel-away sheath and guidewire removed. Catheter fixed to the skin. Both catheter ports aspirated and flushed. Patient tolerated procedure well, without immediate complication. Followup chest x-ray obtained, documents catheter tip position pointed cephalad within the internal jugular vein. At site catheter manipulations were performed, which ultimately succeeded in correcting the catheter position, final radiograph documents catheter tip position at the level of the high right atrium Impression: Successful bedside placement of right arm PICC under sonographic guidance, as described above.
--- NOTE | 2018-10-23 18:04 | NUR ---
RESPIRATORY NOTE: Still no order for trach change. Pt is stable, no SOB or resp distress noted. Charge nurse Karina and RN Tiarra jacobson. Spare trach Shiley XLT cuffed size at bedside.
--- NOTE | 2018-10-23 19:06 | NUR ---
CASE MANAGEMENT: REVIEW 57Y/M ANANTHZainab KELY KENT CC: SEIZURE SI: STATUS EPILEPTICUS . CHRONIC RESP FAILURE T 94.5 HR 71 RR 14 BP 79/53 SAT 98% MECH VENT FIO2 50 AST 86 AST 95 ALK PHOS 757 IS: ATIVAN IV X1 KEPPRA IV X1 HEPARIN IV X1 PATIENT ADMITTED TO ICU 10/23/2018 DCP: PATIENT KELY KENT
--- NOTE | 2018-10-23 19:23 | NUR ---
HAND-OFF: Report given to OPAL Pham.
--- NOTE | 2018-10-23 19:24 | NUR ---
NURSE NOTES: Endorsement received from Tiarra Vo RN. Patient opens eyes spontaneously, able to communicate per nodding or shaking his head. With trache 6.0 uncuffed. On cool aerosol 50%. No shortness of breath. With right upper arm PICC. On 03/25 NS 75ml/hr. GT patent and intact, on NPO. Suprapubic catheter present connected to urimeter. However not draining due to clogged catheter, unable to flush. As per endorsement, Dr. Palomino already aware. On ky Hugger warming blanket. Still hypothermic at this time. On seizure precautions. Head of bed elevated. Call light within reach. Bed locked and in low position.
[2018-10-23] MEDS ORDERED: Dyna-Hex 2% Top Sol 2oz TOPIC SCH (20:00)
--- NOTE | 2018-10-23 20:30 | NUR ---
NURSE NOTES: ABG drawn for the patient, currently on cool aerosol 50%. Dr. Garcia informed of the ABG results. As per him no new order at this time. Noted patient urinating from the penis due to blocked suprapubic catheter. Condom catheter applied to keep him dry.
[2018-10-23] MEDS: Gabapentin 300 MG/6 ML Soln ORAL SCH (20:59)
[2018-10-23] MEDS: Heparin 5000 units/ml inj SUBQ SCH (21:00)
[2018-10-23] MEDS: levETIRAcetam 1,000mg/NS100ml 100 ML IVPB SCH (21:33)
--- NOTE | 2018-10-23 23:00 | NUR ---
NURSE NOTES: Patient awake at this time. No seizure activity. No shortness of breath. Will continue to monitor.
[2018-10-24] VITALS (22 sets, daily range): BP systolic 72–147; BP diastolic 41–92
--- NOTE | 2018-10-24 | History and Physical Report ---
DATE OF ADMISSION: 10/23/2018 CHIEF COMPLAINT: Altered mental status and seizure disorder. HISTORY OF PRESENT ILLNESS: This is a 57-year-old very unfortunate gentleman with past medical history significant for acute on chronic respiratory failure, status post tracheostomy, history of COPD, GERD, neuromuscular dysfunction of the bladder, history of polyneuropathy, epilepsy, hypothyroidism, and quadriplegia, who has presented to the hospital from nursing facility of [facility] after he was noted to have persistent seizure. The patient was brought in via ambulance, was noted to have the seizure activity about 15 minutes, and then he has been given 10 mg Versed by the EMS prior to arrival, and has been taking Keppra regularly. However, his seizure was not controlled and subsequently was admitted to ICU with uncontrolled seizure with epilepsy. The patient has usually a tracheostomy and PEG placement and chronically ventilated, on the trach collar. PAST MEDICAL HISTORY /PAST SURGICAL HISTORY: As above. History of chronic respiratory failure, on a trach collar, status post G-tube placement, suprapubic catheter placement, neurogenic bladder, history of epilepsy, GERD, morbid obesity, status post suprapubic catheter placement, and hypothyroidism. MEDICATIONS AT LONG TERM: Please refer to medication reconciliation. ALLERGIES: Bactrim. SOCIAL HISTORY: No smoking, alcohol, or drugs. retirement resident. FAMILY HISTORY: Noncontributory. REVIEW OF SYSTEMS: Very limited secondary to the patient's status at this time, who is in a catatonic status, unable to answer any questions. Most of the history is taken from the ER chart as well as care home documentation. PHYSICAL EXAMINATION: VITAL SIGNS: On admission, temperature 94.5, pulse of 99, respirations 18, and blood pressure 93/63. GENERAL: The patient is unresponsive, cannot follow commands, on the vent. HEAD AND NECK: Pupils are equal and reactive to light. Anicteric. Trach site is intact. NECK: Supple. No JVD. LUNGS: Good air entry. No wheezing or rales. Poor inspiratory effort. Mechanical breath sounds. HEART: S1, S2. Distant heart sounds. No murmurs or gallops. ABDOMEN: Soft, nondistended, and nontender. Morbidly obese. PEG site is clean. GENITOURINARY: Suprapubic catheter was noted in the pelvic area. No sign of drainage. No sign of infection. EXTREMITIES: No cyanosis, clubbing, or edema. NEUROLOGIC: Limited secondary to the patient's quadriplegia as well as unable to move. LABORATORY DATA: On admission from the ER, WBC of 6.6, hemoglobin 14, hematocrit 47, and platelets is 103,000. Sodium 136, potassium 3.7, chloride 102, bicarbonate 28, BUN 17, and creatinine 0.5. Total bilirubin of 1.1 and direct bilirubin of 0.4. AST of 86 and ALT of 95. Troponin is 0.00. Alkaline phosphatase was 757. Dilantin level is 0.16 and phenobarb level is negative. The patient had a chest x-ray, no acute process. Left hemidiaphragm is elevated. Lungs and pleural space are clear. Tracheostomy again demonstrated. The PICC line in the upper extremity. ASSESSMENT: 1. Status epilepticus. 2. Acute on chronic respiratory failure, chronic vent-dependent patient, status post tracheostomy. 3. Status post PEG. 4. Quadriplegia. 5. Thrombocytopenia. 6. Hypothyroidism. 7. Morbid obesity. 8. Status post neurogenic bladder. 9. Status post suprapubic catheter placement. PLAN: 1. Admit the patient to ICU. 2. We will follow up with Dr. Garcia recommendations from ICU Critical Care. 3. Monitor laboratory as well as cultures. 4. At this time, we would not give any antibiotic. 5. DVT prophylaxis with heparin subcutaneous. 6. Code status is Full Code. 7. We will monitor seizure precautions and Ativan as needed for seizure. Bruno Ko M.D. DR: FE JOB#: [id number] CC:
--- NOTE | 2018-10-24 | NUR ---
NURSE NOTES: Axillary temp 98.9F- 99F, warming blanket turned off.
[2018-10-24] MEDS: D5 1/2NS 1,000 ML IV SCH ×3 (00:45→20:32)
[2018-10-24] MEDS: Morphine Sulfate 4mg/ml Inj (IV USE ONLY) IVP PRN ×2 (00:48→08:44)
--- NOTE | 2018-10-24 00:50 | NUR ---
NURSE NOTES: Patient tachycardic, rate at 127-130s. Assessed patient for pain. PRN morphine given.
--- NOTE | 2018-10-24 02:00 | NUR ---
NURSE NOTES: Patient asleep at this time. Vital signs stable
--- NOTE | 2018-10-24 02:30 | Consultation ---
DATE OF CONSULTATION: 10/23/2018 CARDIOLOGY CONSULTATION CONSULTING PHYSICIAN: Rai Dobbs M.D. REFERRING PHYSICIAN: Bruno Ko M.D. REASON FOR CONSULTATION: Hypotension. HISTORY OF PRESENT ILLNESS: The patient is a 57-year-old gentleman, who is nonverbal and has ventilator-dependent respiratory failure, status post tracheostomy, as well as dysphagia, status post PEG placement, suprapubic catheter placement, as well as history of seizure disorder, and polyneuropathy, was brought in by paramedics after persistent seizure episode lasting about 15 minutes. The patient received 10 mg of Versed by paramedics prior to the arrival. The patient has been on Keppra regularly. The patient usually is not chronically ventilated and usually uses a trach collar. At the time of my evaluation, the patient is in the intensive care unit. REVIEW OF SYSTEMS: Cannot be obtained. PAST MEDICAL HISTORY: As mentioned above. FAMILY HISTORY: Noncontributory. SOCIAL HISTORY: retirement resident. Does not smoke or drink alcohol. PHYSICAL EXAMINATION: VITAL SIGNS: Blood pressure is 92/63, pulse is 100, respirations 18, and temperature 98.5. HEAD AND NECK: Status post tracheostomy, on the ventilator. LUNGS: Decreased breath sounds. CARDIOVASCULAR: Shows mild tachycardic. S1, S2 with no gallop. ABDOMEN: Status post G-tube and suprapubic catheter. EXTREMITIES: A 1+ pitting edema. LABORATORY DATA: Labs show white count 6.6, hemoglobin 14.9, hematocrit of 47.4, and platelet count of 103,000. Sodium was 133, potassium is 3.7, BUN of 17, creatinine 0.5, and glucose of 90. Troponin is negative. ASSESSMENT AND PLAN: 1. Hypotension could be secondary to seizures versus sepsis. Blood pressure currently in 100s and 90s. There is Levophed ordered already. We will completely rule out myocardial infarction protocol. His EKG shows sinus rhythm with right bundle-branch block. 2. Ventilator-dependent respiratory failure, status post tracheostomy, on the ventilator per Dr. Garcia. 3. Dysphagia, status post PEG placement. 4. Status post suprapubic catheter. 5. Uncontrolled seizures, on Neurontin. Further evaluation by Neurology. Thank you very much for allowing me to participate in the care of this patient. Please do not hesitate to contact me for any questions regarding my evaluation. Rai Dobbs M.D. DR: HARJINDER JOB#: [id number] CC:
--- NOTE | 2018-10-24 04:00 | NUR ---
NURSE NOTES: Bed bath, oral care done
[2018-10-24 04:26] LABS: HEMATOCRIT 43.3 % (42.0-52.0); HEMOGLOBIN 13.6 G/DL (14.2-18.0); MEAN CORPUSCULAR VOLUME 90 FL (80-99); PLATELET COUNT 94 K/UL (150-450); RED BLOOD COUNT 4.84 M/UL (4.70-6.10); RED CELL DISTRIBUTION WIDTH 21.1 % (11.6-14.8); WHITE BLOOD COUNT 5.4 K/UL (4.8-10.8)
[2018-10-24 04:43] LABS: INR 1.1 (0.9-1.1)
[2018-10-24 04:44] LABS: ALANINE AMINOTRANSFERASE 75 U/L (12-78); ALKALINE PHOSPHATASE 601 U/L (46-116); ASPARTATE AMINO TRANSFERASE 65 U/L (15-37); BILIRUBIN,DIRECT 0.4 MG/DL (0.0-0.3); BILIRUBIN,TOTAL 1.8 MG/DL (0.2-1.0); LACTATE DEHYDROGENASE 133 U/L (81-234); PHOSPHORUS 3.1 MG/DL (2.5-4.9)
--- NOTE | 2018-10-24 05:42 | NUR ---
Received patient on the vent with a size 6shiley XLT cuffless vent alarming due to low vt, set volume is 600 and patient was only getting 100-200. Spoke to OPAL Mayen if we can place pt on Cool Aerosol and to get an order for an ABG. We did get the order placed patient on 50% cool aerosol, abg results within normal values. Pt. tolerated O2 t/o the night. Trach care done per policy. Will continue to monitor
[2018-10-24] MEDS: Gabapentin 300 MG/6 ML Soln ORAL SCH ×5 (05:56→23:39)
--- NOTE | 2018-10-24 06:00 | NUR ---
NURSE NOTES: Patient awake. No seizure activity for this shift
--- NOTE | 2018-10-24 07:25 | NUR ---
HAND-OFF: Report given to OPAL Johnson.
[2018-10-24] MEDS: levETIRAcetam 1,000mg/NS100ml 100 ML IVPB SCH ×2 (08:42→20:31)
[2018-10-24] MEDS: Heparin 5000 units/ml inj SUBQ SCH ×2 (09:00→21:00)
--- NOTE | 2018-10-24 09:30 | NUR ---
NURSE NOTES: Heparin subq held since PLT level is 94 this morning, no visible bleeding noted over suprapubic catheter,
--- NOTE | 2018-10-24 11:45 | NUR ---
NURSE NOTES: Patient placed on P200 mattress to prevent wound breakdown, patient tolerated turning with no distress noted. remains saturating at 95-99% oon FIO2 at 50%.
--- NOTE | 2018-10-24 12:06 | Urology Progress Note ---
Assessment/Plan Assessment/Plan: urinary retention with chronic SP tube neurogenic bladder renal cyst UTI/colonized I personally removed old SP tube new 18f cath placed, irrigated and position is satisfactory monitor clinically f/u on UA consider adding abx Subjective Allergies: Coded Allergies: SULFAMETHOXAZOLE (Verified Allergy, Unknown, 10/18/17) TRIMETHOPRIM (Verified Allergy, Unknown, 10/18/17) UNABLE TO ASSESS (Unverified , 10/23/18) Subjective all noted, has been incontinent Objective Last 24 Hour Vital Signs Date Time Temp Pulse Resp B/P (MAP) Pulse Ox O2 Delivery O2 Flow Rate FiO2 10/24/18 10:00 106 15 126/79 (95) 99 10/24/18 09:00 108 17 138/68 (91) 99 10/24/18 08:00 T-piece 10/24/18 08:00 98.3 95 14 97/50 (66) 98 10/24/18 08:00 115 10/24/18 07:30 110 16 106/61 (76) 98 10/24/18 07:00 112 18 95/53 (67) 98 10/24/18 06:55 97 T-Piece 12.0 50 10/24/18 06:00 110 18 72/50 (57) 98 10/24/18 05:00 119 20 118/67 (84) 96 10/24/18 04:00 98.7 112 15 95/46 (62) 96 10/24/18 04:00 T-piece 10/24/18 04:00 122 10/24/18 03:00 127 32 115/58 (77) 95 10/24/18 02:00 130 26 147/92 (110) 96 10/24/18 01:13 98.9 10/24/18 01:00 98.9 128 20 96/54 (68) 95 10/24/18 00:32 95 T-Piece 12.0 50 10/24/18 00:00 99.0 125 19 105/53 (70) 95 10/24/18 00:00 T-piece 10/24/18 00:00 122 10/23/18 23:00 118 19 99/55 (70) 97 10/23/18 22:00 114 22 111/66 (81) 94 10/23/18 21:24 108 23 94 T-Piece 10.0 40 10/23/18 21:00 109 27 130/69 (89) 98 10/23/18 20:00 97 23 113/62 (79) 94 10/23/18 20:00 85 10/23/18 20:00 T-piece 10/23/18 19:04 99 T-Piece 12.0 50 10/23/18 19:00 85 31 128/85 (99) 99 10/23/18 16:58 Mechanical Ventilator 10/23/18 16:40 67 19 50 10/23/18 15:16 66 16 50 10/23/18 14:10 92.1 67 17 110/76 98 Mechanical Ventilator 50 10/23/18 14:10 65 18 50 10/23/18 13:15 94.5 78 18 102/76 98 Mechanical Ventilator 50 10/23/18 12:58 71 14 50 Intake and Output 10/23/18 10/24/18 19:00 07:00 Intake Total 360 ml 825 ml Output Total 1000 ml Balance 360 ml -175 ml Intake Free Water 60 ml IV Total 300 ml 825 ml Output Urine Total 1000 ml # Voids 1 # Bowel Movements 3 Microbiology Date/Time Source Procedure Growth Status 10/23/18 13:45 Sputum Induced Gram Stain - Final Resulted 10/23/18 13:45 Sputum Induced Sputum Culture - Preliminary NORMAL UPPER RESPIRATORY JUNG AT 24 ... Resulted Current Medications Medications (Trade) Dose Ordered Sig/Vicenta Route PRN Reason Start Time Stop Time Status Last Admin Dose Admin Acetaminophen (Tylenol) 650 mg Q4H PRN ORAL Fever 10/23/18 11:15 11/22/18 11:14 Albuterol/ Ipratropium (Albuterol/ Ipratropium) 3 ml Q4H PRN HHN Shortness of Breath 10/23/18 11:15 10/28/18 11:14 Baclofen (Lioresal) 15 mg Q6HR ORAL 10/23/18 12:00 11/22/18 11:59 10/24/18 05:56 Chlorhexidine Gluconate (Caitlyn-Hex 2%) 1 applic DAILY@1999 TOPIC 10/23/18 20:00 11/22/18 19:59 10/23/18 20:59 Dextrose (Dextrose 50%) 25 ml Q30M PRN IV Hypoglycemia 10/23/18 11:15 11/22/18 11:14 Dextrose (Dextrose 50%) 50 ml Q30M PRN IV Hypoglycemia 10/23/18 11:15 11/22/18 11:14 Dextrose/Sodium Chloride 1,000 ml @ 75 mls/hr [id number] IV 10/23/18 12:00 11/22/18 11:59 10/24/18 00:45 Gabapentin (Neurontin) 800 mg Q6HR ORAL 10/23/18 19:30 11/22/18 19:29 10/24/18 05:56 Heparin Sodium (Porcine) (Heparin 5000 units/ml) 5,000 units EVERY 12 HOURS SUBQ 10/23/18 21:00 11/22/18 20:59 Levetiracetam 100 ml @ 400 mls/hr Q12HR IVPB 10/23/18 21:00 11/22/18 20:59 10/24/18 08:42 Lorazepam (Ativan 2mg/ml 1ml) 2 mg Q2H PRN IV agitation 10/23/18 11:15 10/30/18 11:14 Morphine Sulfate (Morphine Sulfate) 4 mg Q4H PRN IVP Severe Pain (Pain Scale 7-10) 10/23/18 11:15 10/30/18 11:14 10/24/18 08:44 Nitroglycerin (Ntg) 0.4 mg Q5M PRN SL Prn Chest Pain 10/23/18 11:15 11/22/18 11:14 Ondansetron HCl (Zofran) 4 mg Q6H PRN IVP Nausea & Vomiting 10/23/18 11:15 11/22/18 11:14 Laboratory Tests 10/23/18 14:54: Urine Color [Pending], Urine Appearance [Pending], Urine pH [Pending], Urine Specific [place] [Pending], Urine Protein [Pending], Urine Glucose (UA) [Pending ], Urine Ketones [Pending], Urine Blood [Pending], Urine Nitrite [Pending], Urine Bilirubin [Pending], Urine Urobilinogen [Pending], Urine Leukocyte Esterase [Pending] 10/23/18 19:10: Troponin I 0.024 10/23/18 20:00: Arterial Blood pH 7.411, Arterial Blood Partial Pressure CO2 39.4, Arterial Blood Partial Pressure O2 83.0, Arterial Blood HCO3 24.0, Arterial Blood Oxygen Saturation 95.5, Arterial Blood Base Excess 0, Kem Test N/a 10/24/18 04:00: Troponin I 0.014, White Blood Count 5.4, Red Blood Count 4.84, Hemoglobin 13.6L , Hematocrit 43.3, Mean Corpuscular Volume 90, Mean Corpuscular Hemoglobin 28.2 , Mean Corpuscular Hemoglobin Concent 31.5L, Red Cell Distribution Width 21.1H, Platelet Count 94L, Mean Platelet Volume 6.9, Neutrophils (%) (Auto) , Lymphocytes (%) (Auto) , Monocytes (%) (Auto) , Eosinophils (%) (Auto) , Basophils (%) (Auto) , Differential Total Cells Counted 100, Neutrophils % ( Manual) 70, Lymphocytes % (Manual) 20, Monocytes % (Manual) 8, Eosinophils % ( Manual) 1, Basophils % (Manual) 1, Band Neutrophils 0, Platelet Estimate DecreasedL, Platelet Morphology Normal, Anisocytosis 3+, Prothrombin Time 11.4, Prothromb Time International Ratio 1.1, Activated Partial Thromboplast Time 31, Phosphorus Level 3.1, Total Bilirubin 1.8H, Direct Bilirubin 0.4H, Aspartate Amino Transf (AST/SGOT) 65H, Alanine Aminotransferase (ALT/SGPT) 75, Alkaline Phosphatase 601H, Lactate Dehydrogenase 133, Pro-B-Type Natriuretic Peptide 30, Total Protein 6.6, Albumin 3.0L Height (Feet): 5 Height (Inches): 10.00 Weight (Pounds): 202 Objective exam stable Ascencion Palomino MD Oct 24, 2018 12:06
--- NOTE | 2018-10-24 12:45 | NUR ---
NURSE NOTES: Dr. Zuleta assisted at the bedside while placement of suprapubic catheter placement using an 18g catheter, inserted on first attempts with no oozing or bleeding after insertion. catheter flushed with sterile water with clear straw urine noted, patient remains calm and tolerated procedure with no distress noted, Dietrich clamped and secured with Dietrich anchor to prevent occlusion
--- NOTE | 2018-10-24 13:45 | NUR ---
NURSE NOTES: Dr. Gomez assessed patient at the bedside regarding placement of trach, no verbal orders given at this time since patient is able to tolerate a T-piece at 50% FIO2. he is able to word simple responses by moving his lips and nodes with head yes or no.
--- NOTE | 2018-10-24 14:40 | NUR ---
NURSE NOTES: Dr. Dobbs is at the bedside with patient assessing cardiac rhythm, remains in sinus rhythm with BBB at 90-100, no verbal orders given at this time.
--- NOTE | 2018-10-24 15:37 | Cardiac Electrophysiology PN ---
Assessment/Plan Assessment/Plan 1. Hypotension could be secondary to seizures versus sepsis. Blood pressure currently in 100s and 90s. Off Levophed Ruled out for myocardial infarction. His EKG shows sinus rhythm with right bundle-branch block.Echo EF 55% 2. Respiratory failure, status post tracheostomy, off the ventilator per Dr. Garcia. 3. Dysphagia, status post PEG placement. 4. Status post suprapubic catheter.Changed by Dr Palomino today 5. Uncontrolled seizures, on Neurontin. 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 Subjective In ICU off the vent. On 50% trach collar Objective Last 24 Hour Vital Signs Date Time Temp Pulse Resp B/P (MAP) Pulse Ox O2 Delivery O2 Flow Rate FiO2 10/24/18 14:00 96.4 100 20 92/41 (58) 99 10/24/18 13:07 98 T-Piece 12.0 50 10/24/18 13:00 85 15 81/76 (78) 99 10/24/18 12:00 T-piece 10/24/18 12:00 97.6 88 13 93/46 (62) 99 10/24/18 12:00 89 10/24/18 11:00 90 13 91/43 (59) 99 10/24/18 10:00 106 15 126/79 (95) 99 10/24/18 09:00 108 17 138/68 (91) 99 10/24/18 08:00 T-piece 10/24/18 08:00 98.3 95 14 97/50 (66) 98 10/24/18 08:00 115 10/24/18 07:30 110 16 106/61 (76) 98 10/24/18 07:00 112 18 95/53 (67) 98 10/24/18 06:55 97 T-Piece 12.0 50 10/24/18 06:00 110 18 72/50 (57) 98 10/24/18 05:00 119 20 118/67 (84) 96 10/24/18 04:00 98.7 112 15 95/46 (62) 96 10/24/18 04:00 T-piece 10/24/18 04:00 122 10/24/18 03:00 127 32 115/58 (77) 95 10/24/18 02:00 130 26 147/92 (110) 96 10/24/18 01:13 98.9 10/24/18 01:00 98.9 128 20 96/54 (68) 95 10/24/18 00:32 95 T-Piece 12.0 50 10/24/18 00:00 99.0 125 19 105/53 (70) 95 10/24/18 00:00 T-piece 10/24/18 00:00 122 10/23/18 23:00 118 19 99/55 (70) 97 10/23/18 22:00 114 22 111/66 (81) 94 10/23/18 21:24 108 23 94 T-Piece 10.0 40 10/23/18 21:00 109 27 130/69 (89) 98 10/23/18 20:00 97 23 113/62 (79) 94 10/23/18 20:00 85 10/23/18 20:00 T-piece 10/23/18 19:04 99 T-Piece 12.0 50 10/23/18 19:00 85 31 128/85 (99) 99 10/23/18 16:58 Mechanical Ventilator 10/23/18 16:40 67 19 50 Intake and Output 10/23/18 10/24/18 19:00 07:00 Intake Total 360 ml 900 ml Output Total 1000 ml Balance 360 ml -100 ml Intake Free Water 60 ml IV Total 300 ml 900 ml Output Urine Total 1000 ml # Voids 1 # Bowel Movements 3 Laboratory Tests Test 10/23/18 19:10 10/23/18 20:00 10/24/18 04:00 Troponin I 0.024 ng/mL (0.000-0.056) 0.014 ng/mL (0.000-0.056) Arterial Blood pH 7.411 (7.350-7.450) Arterial Blood Partial Pressure CO2 39.4 mmHg (35.0-45.0) Arterial Blood Partial Pressure O2 83.0 mmHg (75.0-100.0) Arterial Blood HCO3 24.0 mmol/L (22.0-26.0) Arterial Blood Oxygen Saturation 95.5 % (95-100) Arterial Blood Base Excess 0 (-2-2) Kem Test N/a White Blood Count 5.4 K/UL (4.8-10.8) Red Blood Count 4.84 M/UL (4.70-6.10) Hemoglobin 13.6 G/DL (14.2-18.0) L Hematocrit 43.3 % (42.0-52.0) Mean Corpuscular Volume 90 FL (80-99) Mean Corpuscular Hemoglobin 28.2 PG (27.0-31.0) Mean Corpuscular Hemoglobin Concent 31.5 G/DL (32.0-36.0) L Red Cell Distribution Width 21.1 % (11.6-14.8) H Platelet Count 94 K/UL (150-450) L Mean Platelet Volume 6.9 FL (6.5-10.1) Neutrophils (%) (Auto) % (45.0-75.0) Lymphocytes (%) (Auto) % (20.0-45.0) Monocytes (%) (Auto) % (1.0-10.0) Eosinophils (%) (Auto) % (0.0-3.0) Basophils (%) (Auto) % (0.0-2.0) Differential Total Cells Counted 100 Neutrophils % (Manual) 70 % (45-75) Lymphocytes % (Manual) 20 % (20-45) Monocytes % (Manual) 8 % (1-10) Eosinophils % (Manual) 1 % (0-3) Basophils % (Manual) 1 % (0-2) Band Neutrophils 0 % (0-8) Platelet Estimate Decreased L Platelet Morphology Normal Anisocytosis 3+ Prothrombin Time 11.4 SEC (9.30-11.50) Prothromb Time International Ratio 1.1 (0.9-1.1) Activated Partial Thromboplast Time 31 SEC (23-33) Phosphorus Level 3.1 MG/DL (2.5-4.9) Total Bilirubin 1.8 MG/DL (0.2-1.0) H Direct Bilirubin 0.4 MG/DL (0.0-0.3) H Aspartate Amino Transf (AST/SGOT) 65 U/L (15-37) H Alanine Aminotransferase (ALT/SGPT) 75 U/L (12-78) Alkaline Phosphatase 601 U/L (46-116) H Lactate Dehydrogenase 133 U/L (81-234) Pro-B-Type Natriuretic Peptide 30 pg/mL (0-125) Total Protein 6.6 G/DL (6.4-8.2) Albumin 3.0 G/DL (3.4-5.0) L Microbiology Date/Time Source Procedure Growth Status 10/23/18 13:45 Sputum Induced Gram Stain - Final Resulted 10/23/18 13:45 Sputum Induced Sputum Culture - Preliminary NORMAL UPPER RESPIRATORY JUNG AT 24 ... Resulted Objective HEAD AND NECK: Status post tracheostomy, off the ventilator. LUNGS: Decreased breath sounds. CARDIOVASCULAR: Shows mild tachycardic. S1, S2 with no gallop. ABDOMEN: Status post G-tube and suprapubic catheter. EXTREMITIES: A 1+ pitting edema. Rai Dobbs MD Oct 24, 2018 15:37
--- NOTE | 2018-10-24 16:28 | Internal Med Progress Note ---
Subjective Date of Service: Oct 24, 2018 Physician Name Isidro Hernandez Attending Physician Bruon Ko MD Current Medications Medications (Trade) Dose Ordered Sig/Vicenta Route PRN Reason Start Time Stop Time Status Last Admin Dose Admin Acetaminophen (Tylenol) 650 mg Q4H PRN ORAL Fever 10/23/18 11:15 11/22/18 11:14 Albuterol/ Ipratropium (Albuterol/ Ipratropium) 3 ml Q4H PRN HHN Shortness of Breath 10/23/18 11:15 10/28/18 11:14 Baclofen (Lioresal) 15 mg Q6HR ORAL 10/23/18 12:00 11/22/18 11:59 10/24/18 14:15 Chlorhexidine Gluconate (Caitlyn-Hex 2%) 1 applic DAILY@2000 TOPIC 10/23/18 20:00 11/22/18 19:59 10/23/18 20:59 Dextrose (Dextrose 50%) 25 ml Q30M PRN IV Hypoglycemia 10/23/18 11:15 11/22/18 11:14 Dextrose (Dextrose 50%) 50 ml Q30M PRN IV Hypoglycemia 10/23/18 11:15 11/22/18 11:14 Dextrose/Sodium Chloride 1,000 ml @ 75 mls/hr [id number] IV 10/23/18 12:00 11/22/18 11:59 10/24/18 14:05 Gabapentin (Neurontin) 800 mg Q6HR ORAL 10/23/18 19:30 11/22/18 19:29 10/24/18 14:15 Heparin Sodium (Porcine) (Heparin 5000 units/ml) 5,000 units EVERY 12 HOURS SUBQ 10/23/18 21:00 11/22/18 20:59 Levetiracetam 100 ml @ 400 mls/hr Q12HR IVPB 10/23/18 21:00 11/22/18 20:59 10/24/18 08:42 Lorazepam (Ativan 2mg/ml 1ml) 2 mg Q2H PRN IV agitation 10/23/18 11:15 10/30/18 11:14 Morphine Sulfate (Morphine Sulfate) 4 mg Q4H PRN IVP Severe Pain (Pain Scale 7-10) 10/23/18 11:15 10/30/18 11:14 10/24/18 08:44 Nitroglycerin (Ntg) 0.4 mg Q5M PRN SL Prn Chest Pain 10/23/18 11:15 11/22/18 11:14 Ondansetron HCl (Zofran) 4 mg Q6H PRN IVP Nausea & Vomiting 10/23/18 11:15 11/22/18 11:14 Allergies: Coded Allergies: SULFAMETHOXAZOLE (Verified Allergy, Unknown, 10/18/17) TRIMETHOPRIM (Verified Allergy, Unknown, 10/18/17) UNABLE TO ASSESS (Unverified , 10/23/18) ROS Limited/Unobtainable: Yes Subjective 57 YO M admitted with breakthrough seizure. Cover for Int Med-Dr Ko. ICU Objective Last Vital Signs Date Time Temp Pulse Resp B/P (MAP) Pulse Ox O2 Delivery O2 Flow Rate FiO2 10/24/18 14:00 96.4 100 20 92/41 (58) 99 10/24/18 13:07 T-Piece 12.0 50 Laboratory Tests Test 10/23/18 19:10 10/23/18 20:00 10/24/18 04:00 Troponin I 0.024 ng/mL (0.000-0.056) 0.014 ng/mL (0.000-0.056) Arterial Blood pH 7.411 (7.350-7.450) Arterial Blood Partial Pressure CO2 39.4 mmHg (35.0-45.0) Arterial Blood Partial Pressure O2 83.0 mmHg (75.0-100.0) Arterial Blood HCO3 24.0 mmol/L (22.0-26.0) Arterial Blood Oxygen Saturation 95.5 % (95-100) Arterial Blood Base Excess 0 (-2-2) Kem Test N/a White Blood Count 5.4 K/UL (4.8-10.8) Red Blood Count 4.84 M/UL (4.70-6.10) Hemoglobin 13.6 G/DL (14.2-18.0) L Hematocrit 43.3 % (42.0-52.0) Mean Corpuscular Volume 90 FL (80-99) Mean Corpuscular Hemoglobin 28.2 PG (27.0-31.0) Mean Corpuscular Hemoglobin Concent 31.5 G/DL (32.0-36.0) L Red Cell Distribution Width 21.1 % (11.6-14.8) H Platelet Count 94 K/UL (150-450) L Mean Platelet Volume 6.9 FL (6.5-10.1) Neutrophils (%) (Auto) % (45.0-75.0) Lymphocytes (%) (Auto) % (20.0-45.0) Monocytes (%) (Auto) % (1.0-10.0) Eosinophils (%) (Auto) % (0.0-3.0) Basophils (%) (Auto) % (0.0-2.0) Differential Total Cells Counted 100 Neutrophils % (Manual) 70 % (45-75) Lymphocytes % (Manual) 20 % (20-45) Monocytes % (Manual) 8 % (1-10) Eosinophils % (Manual) 1 % (0-3) Basophils % (Manual) 1 % (0-2) Band Neutrophils 0 % (0-8) Platelet Estimate Decreased L Platelet Morphology Normal Anisocytosis 3+ Prothrombin Time 11.4 SEC (9.30-11.50) Prothromb Time International Ratio 1.1 (0.9-1.1) Activated Partial Thromboplast Time 31 SEC (23-33) Phosphorus Level 3.1 MG/DL (2.5-4.9) Total Bilirubin 1.8 MG/DL (0.2-1.0) H Direct Bilirubin 0.4 MG/DL (0.0-0.3) H Aspartate Amino Transf (AST/SGOT) 65 U/L (15-37) H Alanine Aminotransferase (ALT/SGPT) 75 U/L (12-78) Alkaline Phosphatase 601 U/L (46-116) H Lactate Dehydrogenase 133 U/L (81-234) Pro-B-Type Natriuretic Peptide 30 pg/mL (0-125) Total Protein 6.6 G/DL (6.4-8.2) Albumin 3.0 G/DL (3.4-5.0) L Microbiology Date/Time Source Procedure Growth Status 10/23/18 13:45 Sputum Induced Gram Stain - Final Resulted 10/23/18 13:45 Sputum Induced Sputum Culture - Preliminary NORMAL UPPER RESPIRATORY JUNG AT 24 ... Resulted Intake and Output 10/23/18 10/24/18 19:00 07:00 Intake Total 360 ml 900 ml Output Total 1000 ml Balance 360 ml -100 ml Intake Free Water 60 ml IV Total 300 ml 900 ml Output Urine Total 1000 ml # Voids 1 # Bowel Movements 3 Objective PHYSICAL EXAMINATION: GENERAL: The patient is unresponsive, cannot follow commands, on the vent. HEAD AND NECK: Pupils are equal and reactive to light. Anicteric. Trach site is intact. NECK: Tracheostomy present. Supple. No JVD. LUNGS: Good air entry. No wheezing or rales. Poor inspiratory effort. Mechanical breath sounds. HEART: S1, S2. Distant heart sounds. No murmurs or gallops. ABDOMEN: Soft, nondistended, and nontender. Morbidly obese. PEG site is clean. GENITOURINARY: Suprapubic catheter was noted in the pelvic area. No sign of drainage. No sign of infection. EXTREMITIES: No cyanosis, clubbing, or edema. NEUROLOGIC: Limited secondary to the patient's quadriplegia as well as unable to move. Assessment/Plan Assessment/Plan ASSESSMENT: 1. Status epilepticus. 2. Acute on chronic respiratory failure, chronic vent-dependent patient, status post tracheostomy. 3. Status post PEG. 4. Quadriplegia. 5. Thrombocytopenia. 6. Hypothyroidism. 7. Morbid obesity. 8. Status post neurogenic bladder. 9. Status post suprapubic catheter placement. PLAN: 1. Admit the patient to ICU. 2. We will follow up with Dr. Garcia recommendations from ICU Critical Care. 3. Monitor laboratory as well as cultures. 4. At this time, we would not give any antibiotic. 5. DVT prophylaxis with heparin subcutaneous. 6. Code status is Full Code. 7. We will monitor seizure precautions and Ativan as needed for seizure. Isidro Hernandez MD Oct 24, 2018 16:28
--- NOTE | 2018-10-24 16:30 | NUR ---
NURSE NOTES: Dr. Machado made aware of patient condition and status progress, ordered to have patient transferred to [facility] and start on tube feeding, patient and Mr machado had a yes/no conversation regarding plan of care.
[2018-10-24] MEDS ORDERED: FLEET ENEMA133 ML RECTAL (18:31)
[2018-10-24] MEDS ORDERED: DUONEB 0.5-3(2.53 ML HHN (18:31)
[2018-10-24] MEDS ORDERED: ASPIRIN81 MG GT (18:31)
[2018-10-24] MEDS ORDERED: UTI-STAT L3875 MG/31 GT (18:31)
[2018-10-24] MEDS ORDERED: LEVOTHYROXINE125 MCG GT (18:31)
[2018-10-24] MEDS ORDERED: ATORVASTATIN CA10 MG GT (18:31)
[2018-10-24] MEDS ORDERED: LEVETIRACE100 MG/1 M GT (18:31)
[2018-10-24] MEDS ORDERED: FERROUS SU300 MG/52 GT (18:31)
[2018-10-24] MEDS ORDERED: DULCOLAX10 MG RC (18:31)
[2018-10-24] MEDS ORDERED: ACETAMINOPHEN325 M1 GT (18:31)
--- NOTE | 2018-10-24 18:45 | Consultation ---
DATE OF CONSULTATION: 10/23/2018 CONSULTING PHYSICIAN: Ascencion Palomino M.D. REFERRING PHYSICIAN: Bruno Ko M.D. REASON FOR CONSULTATION: Evaluation of suprapubic tube. HISTORY OF PRESENT ILLNESS: This is a 57-year-old male. He has multiple medical issues. He was brought to emergency room because of seizures and hypotension. He has a chronic suprapubic tube that is not draining. He has been incontinent. Urology evaluation requested. I am not able to get any history from the patient. Most of the history was obtained from the chart. PAST MEDICAL HISTORY: As above. PAST SURGICAL HISTORY: As above. MEDICATION LIST: Reviewed. ALLERGIES: Multiple. See chart. SOCIAL HISTORY: He is resident of a [facility]. PHYSICAL EXAMINATION: The patient is nonverbal, on a trach. He has a G-tube. He has a suprapubic tube, 16-Yemeni. LABORATORY STUDIES: Showed BUN of 17, creatinine 0.5. White count of 6.6, hemoglobin 14.8. UA result is pending. DIAGNOSTIC IMAGING STUDIES: His last abdominal ultrasound was a year ago and at that time, there was mention of left renal parapelvic cyst and a right renal cyst. IMPRESSION: 1. Urinary retention. 2. Neurogenic bladder with chronic suprapubic tube. 3. Renal cyst. 4. Probable UTI and colonization. PLAN AND DISCUSSION: The patient does have a chronic suprapubic tube. It is not draining well. The nursing staff attempted to irrigate it and apparently it is occluded. We will try to get some information about the suprapubic tube to see when it was the last time that it was changed or when it was placed, and change it during this admission. In the meantime, he has had some incontinence and his renal function is normal. I would also consider adding antibiotics. Thank you for this consultation. Ascencion Palomino M.D. DR: Marcia JOB#: [id number] CC:
--- NOTE | 2018-10-24 18:51 | NUR ---
CASE MANAGEMENT: REVIEW SI: STATUS EPILEPTICUS . CHRONIC RESP FAILURE T 96.4 HR 116 RR 20 BP 72/46 SAT 98% T-PIECE FIO2 50 T BILI 1.8 AST 65 ALK PHOS 601 IS: HEPARIN SUBQ Q12HR KEPPRA IV Q12HR BACLOFEN PO Q6HR D5 1/2 NS IVF @75ML ICU STATUS DCP: PATIENT [facility]
--- NOTE | 2018-10-24 19:23 | NUR ---
HAND-OFF: Report given to OPAL Landeros. suprapubic catheter remains draining, patient is awake and responsive to name and verbal questions, he is able to verbalize and basic needs
--- NOTE | 2018-10-24 19:24 | NUR ---
NURSE NOTES: Endorsement received from OPAL Shelton. Patient opens eyes spontaneously, able to communicate basic needs. With trache 6.0 uncuffed. On cool aerosol 50%. No shortness of breath. With right upper arm PICC. On D5 1/2 NS 75ml/hr. GT patent and intact. Suprapubic catheter F18 present connected to urimeter. Noted to with urine in the bag as well as from the penis. On seizure precautions. Head of bed elevated. Call light within reach. Bed locked and in low position.
[2018-10-24] MEDS ORDERED: Nitroglycerin Subl 0.4mg tab SL PRN (19:45)
[2018-10-24] MEDS ORDERED: LORazepam Inj 2mg/ml 1ml IV PRN (20:00)
[2018-10-24] MEDS ORDERED: Morphine Sulfate 4mg/ml Inj (IV USE ONLY) IVP PRN (20:00)
[2018-10-24] MEDS ORDERED: Albuterol/Ipratropium 3ml neb HHN PRN (20:00)
--- NOTE | 2018-10-24 20:00 | NUR ---
TRANSFER TO FLOOR: Patient transferred to [facility] room 242 bed 1, per hospital bed. Transferred with telemetry box and with Respiratory Therapist. Will continue to care for this patient in [facility]. Patient has no belongings. Sister in law Elsie Saldaña informed of transfer.
[2018-10-24] MEDS: Dyna-Hex 2% Top Sol 2oz TOPIC SCH (20:31)
--- NOTE | 2018-10-24 21:00 | NUR ---
NURSE NOTES: GT feeding of Jevity 1.2 started at 20ml/hr with goal of 50ml/hr started as per order.
[2018-10-25] VITALS: BP 129/76
--- NOTE | 2018-10-25 02:00 | NUR ---
NURSE NOTES: Bed bath, oral care, change of linens done. Attempted to apply condom catheter as it was noted that patient still passing urine to the penis as well as the suprapubic catheter. However, condom catheter keeps falling off.
--- NOTE | 2018-10-25 03:00 | NUR ---
NURSE NOTES: Patient tolerating feeding. increased to 30ml/hr. Kept head of bed elevated
[2018-10-25 04:00] VITALS: BP 105/61
[2018-10-25] MEDS: Gabapentin 300 MG/6 ML Soln ORAL SCH ×3 (05:53→17:57)
[2018-10-25 07:15] LABS: HEMATOCRIT 41.2 % (42.0-52.0); MEAN CORPUSCULAR VOLUME 91 FL (80-99); PLATELET COUNT 80 K/UL (150-450); RED BLOOD COUNT 4.54 M/UL (4.70-6.10); RED CELL DISTRIBUTION WIDTH 20.8 % (11.6-14.8); WHITE BLOOD COUNT 5.8 K/UL (4.8-10.8)
[2018-10-25 07:23] LABS: ANION GAP 7 mmol/L (5-15); BLOOD UREA NITROGEN 8 mg/dL (7-18); CALCIUM 8.6 MG/DL (8.5-10.1); CARBON DIOXIDE 30 MMOL/L (21-32); CHLORIDE 102 MMOL/L (98-107); CREATININE 0.4 MG/DL (0.55-1.30); POTASSIUM 2.9 MMOL/L (3.5-5.1); SODIUM 139 MMOL/L (136-145)
--- NOTE | 2018-10-25 07:26 | NUR ---
HAND-OFF: Report given to POAL Lopez.
--- NOTE | 2018-10-25 07:30 | NUR ---
NURSE NOTES: Received bedside report from Vero JOSEPH. Pt. in bed, asleep but arousable. No sign of distress. On cool aerosol 50%. No grimacing noted. Supra pubic in placed patent/intact draining yellow colored urine. PICC line at right upper arm with 2 lumen in placed patent/intact running D5 1/2 NS at 75cc/hr. Tolerating well. HOB elevated at all times. On Jevity 1.2 at 30cc/hr. Tolerating well. Call light within reach. Will cont. to monitor.
[2018-10-25 08:00] VITALS: BP 119/65
[2018-10-25] MEDS: Heparin 5000 units/ml inj SUBQ SCH ×2 (09:00→21:00)
--- NOTE | 2018-10-25 09:06 | Urology Progress Note ---
Assessment/Plan Assessment/Plan: urinary retention with chronic SP tube neurogenic bladder renal cyst UTI/colonized keep SP tube, placed 10/24 some leakage, watch hand irrigated and position is satisfactory monitor clinically consider adding abx Subjective Allergies: Coded Allergies: SULFAMETHOXAZOLE (Verified Allergy, Unknown, 10/18/17) TRIMETHOPRIM (Verified Allergy, Unknown, 10/18/17) UNABLE TO ASSESS (Unverified , 10/23/18) Subjective all noted, new SP tube draining OK, some leakage Objective Last 24 Hour Vital Signs Date Time Temp Pulse Resp B/P (MAP) Pulse Ox O2 Delivery O2 Flow Rate FiO2 10/25/18 08:00 97.9 111 20 119/65 (83) 95 10/25/18 07:53 98 T-Piece 12.0 50 10/25/18 04:00 T-piece 10/25/18 04:00 97.5 91 20 105/61 (76) 98 10/25/18 04:00 91 10/25/18 01:20 99 T-Piece 12.0 50 10/25/18 00:00 114 10/25/18 00:00 T-piece 10/25/18 00:00 97.9 115 22 129/76 (93) 96 10/24/18 20:00 97.7 114 22 135/76 (95) 96 10/24/18 20:00 T-piece 10/24/18 19:08 97 T-Piece 12.0 50 10/24/18 19:00 112 20 122/68 (86) 96 10/24/18 18:00 105 16 132/83 (99) 98 10/24/18 17:00 107 16 130/60 (83) 97 10/24/18 16:00 50 10/24/18 16:00 116 10/24/18 16:00 97.9 104 15 124/61 (82) 97 10/24/18 16:00 T-piece 10/24/18 15:00 94 15 127/70 (89) 97 10/24/18 14:00 96.4 100 20 92/41 (58) 99 10/24/18 13:07 98 T-Piece 12.0 50 10/24/18 13:00 85 15 81/76 (78) 99 10/24/18 12:00 T-piece 10/24/18 12:00 50 10/24/18 12:00 97.6 88 13 93/46 (62) 99 10/24/18 12:00 89 10/24/18 11:00 90 13 91/43 (59) 99 10/24/18 10:00 106 15 126/79 (95) 99 Intake and Output 10/24/18 10/25/18 18:59 06:59 Intake Total 1260 ml 1135 ml Output Total 600 ml 1000 ml Balance 660 ml 135 ml Intake Free Water 180 ml IV Total 1000 ml 775 ml Tube Feeding 240 ml Other 80 ml 120 ml Output Urine Total 600 ml 1000 ml # Voids 2 # Bowel Movements 1 Microbiology Date/Time Source Procedure Growth Status 10/23/18 09:02 Blood Blood Culture - Preliminary NO GROWTH AFTER 24 HOURS Resulted 10/23/18 14:54 Nasal Nares MRSA Culture - Final Staphylococcus Aureus - Mrsa Complete 10/23/18 14:54 Rectum VRE Culture - Final Enterococcus Faecalis - Vre Resulted 10/23/18 14:54 Rectum Pending Resulted Current Medications Medications (Trade) Dose Ordered Sig/Vicenta Route PRN Reason Start Time Stop Time Status Last Admin Dose Admin Acetaminophen (Tylenol) 650 mg Q4H PRN ORAL T>100.5 10/24/18 20:00 11/22/18 19:59 Albuterol/ Ipratropium (Albuterol/ Ipratropium) 3 ml Q4H PRN HHN Shortness of Breath 10/24/18 20:00 10/28/18 19:59 Baclofen (Lioresal) 15 mg Q6HR ORAL 10/25/18 00:00 11/22/18 11:59 10/25/18 05:53 Chlorhexidine Gluconate (Caitlyn-Hex 2%) 1 applic DAILY@2000 TOPIC 10/24/18 20:00 11/22/18 19:59 10/24/18 20:31 Dextrose (Dextrose 50%) 25 ml Q30M PRN IV Hypoglycemia 10/24/18 19:45 11/22/18 11:14 Dextrose (Dextrose 50%) 50 ml Q30M PRN IV Hypoglycemia 10/24/18 19:45 11/22/18 11:14 Dextrose/Sodium Chloride 1,000 ml @ 75 mls/hr [id number] IV 10/24/18 19:45 11/22/18 11:59 10/24/18 20:32 Gabapentin (Neurontin) 800 mg Q6HR ORAL 10/25/18 00:00 11/22/18 19:29 10/25/18 05:53 Heparin Sodium (Porcine) (Heparin 5000 units/ml) 5,000 units EVERY 12 HOURS SUBQ 10/24/18 21:00 11/22/18 20:59 Levetiracetam 100 ml @ 400 mls/hr Q12HR IVPB 10/24/18 21:00 11/22/18 20:59 10/24/18 20:31 Lorazepam (Ativan 2mg/ml 1ml) 2 mg Q2H PRN IV agitation 10/24/18 20:00 10/30/18 19:59 Morphine Sulfate (Morphine Sulfate) 4 mg Q4H PRN IVP Severe Pain (Pain Scale 7-10) 10/24/18 20:00 10/30/18 19:59 Nitroglycerin (Ntg) 0.4 mg Q5M PRN SL Prn Chest Pain 10/24/18 19:45 11/22/18 11:14 Ondansetron HCl (Zofran) 4 mg Q6H PRN IVP Nausea & Vomiting 10/24/18 20:00 11/22/18 19:59 Laboratory Tests 10/25/18 04:00: White Blood Count 5.8, Red Blood Count 4.54L, Hemoglobin 13.0L, Hematocrit 41.2L , Mean Corpuscular Volume 91, Mean Corpuscular Hemoglobin 28.6, Mean Corpuscular Hemoglobin Concent 31.4L, Red Cell Distribution Width 20.8H, Platelet Count 80L, Mean Platelet Volume 7.9, Neutrophils (%) (Auto) , Lymphocytes (%) (Auto) , Monocytes (%) (Auto) , Eosinophils (%) (Auto) , Basophils (%) (Auto) , Differential Total Cells Counted 100, Neutrophils % ( Manual) 77H, Lymphocytes % (Manual) 14L, Monocytes % (Manual) 9, Eosinophils % ( Manual) 0, Basophils % (Manual) 0, Band Neutrophils 0, Platelet Estimate DecreasedL, Platelet Morphology Normal, Anisocytosis 2+, Sodium Level 139, Potassium Level 2.9L, Chloride Level 102, Carbon Dioxide Level 30, Anion Gap 7, Blood Urea Nitrogen 8, Creatinine 0.4L, Estimat Glomerular Filtration Rate > 60 , Glucose Level 89, Calcium Level 8.6 Height (Feet): 5 Height (Inches): 10.00 Weight (Pounds): 202 Objective exam stable Ascencion Palomino MD Oct 25, 2018 09:06
[2018-10-25] MEDS: levETIRAcetam 1,000mg/NS100ml 100 ML IVPB SCH ×2 (09:17→21:23)
[2018-10-25] MEDS: D5 1/2NS 1,000 ML IV SCH (09:17)
--- NOTE | 2018-10-25 11:50 | NUR ---
RD ASSESSMENT & RECOMMENDATIONS SEE CARE ACTIVITY FOR COMPLETE ASSESSMENT DAILY ESTIMATED NEEDS: Needs based on Pulmonary, quadriplegia 79.5kg adj 23-28 kcals/kg 6830-3095 total kcals 1.25-1.5 g protein/kg 99-119 g total protein 25-30 mL/kg 8324-6053 total fluid mLs NUTRITION DIAGNOSIS: Swallowing difficulty r/t respiratory status as evidenced by pt is vent dep via T-collar, PEG dep. (CURRENT TF: Jevity 1.2 @50 ml x16 hrs) PO DIET RECOMMENDATIONS HEART COORDINATOR EVAL prior to oral diet ENTERAL NUTRITION RECOMMENDATIONS: Jevity 1.2 @ 65ml/hr x 24 hrs + Prosource BID to provide 1560ml, 1872 kcal, 87g + 22g pro, 1259ml free H2o - Increase goal rate to 65ml/hr to better meet est nutritional needs - Add PROSOURCE BID via GT to better meet est pro needs - Flush per MD/ HOB over 30 degrees ------ ADDITIONAL RECOMMENDATIONS: 1) Monitor lytes daily, replete as needed (Low K 2.9) 2) Re-evaluate TF recs if phenytoin is added 3) HEART COORDINATOR eval prior to any oral diet if on T-collar setting Pt on ORAL DIET + TF TOOL SPECIALIST 4) Monitor BG on TF's and need for hypoglycemic agent 5) WOUND CARE: DIANNE BID + Vit C 250mg daily .
[2018-10-25 12:00] VITALS: BP 118/73
--- NOTE | 2018-10-25 13:40 | Cardiac Electrophysiology PN ---
Assessment/Plan Assessment/Plan 1. Hypotension could be secondary to seizures versus sepsis. Blood pressure currently in 100s and 90s. Off Levophed Ruled out for myocardial infarction. His EKG shows sinus rhythm with right bundle-branch block.Echo EF 55% 2. Sinus tach. No fever or high WBC. No pain. Not anemic ? etiology Add Lopressor 12.5 bid 3. Respiratory failure, status post tracheostomy, off the ventilator per Dr. Garcia. 4. Dysphagia, status post PEG placement. 5. Status post suprapubic catheter.Changed by Dr Palomino 6. Uncontrolled seizures, on Neurontin. 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 Subjective Transferred out of ICU off the vent. On 50% trach collar. Sinus tach up to 130s Objective Last 24 Hour Vital Signs Date Time Temp Pulse Resp B/P (MAP) Pulse Ox O2 Delivery O2 Flow Rate FiO2 10/25/18 13:15 98 T-Piece 12.0 50 10/25/18 12:00 T-piece 10/25/18 12:00 99.2 115 24 118/73 (88) 95 10/25/18 11:47 124 10/25/18 08:00 T-piece 10/25/18 08:00 97.9 111 20 119/65 (83) 95 10/25/18 07:57 103 10/25/18 07:53 98 T-Piece 12.0 50 10/25/18 04:00 T-piece 10/25/18 04:00 97.5 91 20 105/61 (76) 98 10/25/18 04:00 91 10/25/18 01:20 99 T-Piece 12.0 50 10/25/18 00:00 114 10/25/18 00:00 T-piece 10/25/18 00:00 97.9 115 22 129/76 (93) 96 10/24/18 20:00 97.7 114 22 135/76 (95) 96 10/24/18 20:00 T-piece 10/24/18 19:08 97 T-Piece 12.0 50 10/24/18 19:00 112 20 122/68 (86) 96 10/24/18 18:00 105 16 132/83 (99) 98 10/24/18 17:00 107 16 130/60 (83) 97 10/24/18 16:00 50 10/24/18 16:00 116 8/3/19 16:00 97.9 104 15 124/61 (82) 97 10/24/18 16:00 T-piece 10/24/18 15:00 94 15 127/70 (89) 97 10/24/18 14:00 96.4 100 20 92/41 (58) 99 Intake and Output 10/24/18 10/25/18 19:00 07:00 Intake Total 1185 ml 1210 ml Output Total 600 ml 1000 ml Balance 585 ml 210 ml Intake Free Water 180 ml IV Total 925 ml 850 ml Tube Feeding 240 ml Other 80 ml 120 ml Output Urine Total 600 ml 1000 ml # Voids 2 # Bowel Movements 1 Laboratory Tests Test 10/25/18 04:00 White Blood Count 5.8 K/UL (4.8-10.8) Red Blood Count 4.54 M/UL (4.70-6.10) L Hemoglobin 13.0 G/DL (14.2-18.0) L Hematocrit 41.2 % (42.0-52.0) L Mean Corpuscular Volume 91 FL (80-99) Mean Corpuscular Hemoglobin 28.6 PG (27.0-31.0) Mean Corpuscular Hemoglobin Concent 31.4 G/DL (32.0-36.0) L Red Cell Distribution Width 20.8 % (11.6-14.8) H Platelet Count 80 K/UL (150-450) L Mean Platelet Volume 7.9 FL (6.5-10.1) Neutrophils (%) (Auto) % (45.0-75.0) Lymphocytes (%) (Auto) % (20.0-45.0) Monocytes (%) (Auto) % (1.0-10.0) Eosinophils (%) (Auto) % (0.0-3.0) Basophils (%) (Auto) % (0.0-2.0) Differential Total Cells Counted 100 Neutrophils % (Manual) 77 % (45-75) H Lymphocytes % (Manual) 14 % (20-45) L Monocytes % (Manual) 9 % (1-10) Eosinophils % (Manual) 0 % (0-3) Basophils % (Manual) 0 % (0-2) Band Neutrophils 0 % (0-8) Platelet Estimate Decreased L Platelet Morphology Normal Anisocytosis 2+ Sodium Level 139 MMOL/L (136-145) Potassium Level 2.9 MMOL/L (3.5-5.1) L Chloride Level 102 MMOL/L (98-107) Carbon Dioxide Level 30 MMOL/L (21-32) Anion Gap 7 mmol/L (5-15) Blood Urea Nitrogen 8 mg/dL (7-18) Creatinine 0.4 MG/DL (0.55-1.30) L Estimat Glomerular Filtration Rate > 60 mL/min (>60) Glucose Level 89 MG/DL (74-106) Calcium Level 8.6 MG/DL (8.5-10.1) Microbiology Date/Time Source Procedure Growth Status 10/23/18 09:02 Blood Blood Culture - Preliminary NO GROWTH AFTER 24 HOURS Resulted 10/23/18 09:02 Blood Blood Culture - Preliminary NO GROWTH AFTER 24 HOURS Resulted 10/23/18 14:54 Nasal Nares MRSA Culture - Final Staphylococcus Aureus - Mrsa Complete 10/23/18 13:45 Sputum Induced Gram Stain - Final Resulted 10/23/18 13:45 Sputum Culture - Preliminary Gram Negative Bacillus 1 Staphylococcus Aureus Resulted 10/23/18 14:54 Rectum VRE Culture - Final Enterococcus Faecalis - Vre Resulted 10/23/18 14:54 Rectum Pending Resulted Objective HEAD AND NECK: Status post tracheostomy, off the ventilator. LUNGS: Decreased breath sounds. CARDIOVASCULAR: Shows mild tachycardic. S1, S2 with no gallop. ABDOMEN: Status post G-tube and suprapubic catheter. EXTREMITIES: A 1+ pitting edema. Rai Dobbs MD Oct 25, 2018 13:40
--- NOTE | 2018-10-25 14:23 | Internal Med Progress Note ---
Subjective Date of Service: Oct 25, 2018 Physician Name HernandezIsidro Attending Physician Bruno Ko MD Current Medications Medications (Trade) Dose Ordered Sig/Vicenta Route PRN Reason Start Time Stop Time Status Last Admin Dose Admin Acetaminophen (Tylenol) 650 mg Q4H PRN ORAL T>100.5 10/24/18 20:00 11/22/18 19:59 Albuterol/ Ipratropium (Albuterol/ Ipratropium) 3 ml Q4H PRN HHN Shortness of Breath 10/24/18 20:00 10/28/18 19:59 Baclofen (Lioresal) 15 mg Q6HR ORAL 10/25/18 00:00 11/22/18 11:59 10/25/18 12:46 Chlorhexidine Gluconate (Caitlyn-Hex 2%) 1 applic DAILY@2000 TOPIC 10/24/18 20:00 11/22/18 19:59 10/24/18 20:31 Dextrose (Dextrose 50%) 25 ml Q30M PRN IV Hypoglycemia 10/24/18 19:45 11/22/18 11:14 Dextrose (Dextrose 50%) 50 ml Q30M PRN IV Hypoglycemia 10/24/18 19:45 11/22/18 11:14 Dextrose/Sodium Chloride 1,000 ml @ 75 mls/hr [id number] IV 10/24/18 19:45 11/22/18 11:59 10/25/18 09:17 Gabapentin (Neurontin) 800 mg Q6HR ORAL 10/25/18 00:00 11/22/18 19:29 10/25/18 12:45 Heparin Sodium (Porcine) (Heparin 5000 units/ml) 5,000 units EVERY 12 HOURS SUBQ 10/24/18 21:00 11/22/18 20:59 Levetiracetam 100 ml @ 400 mls/hr Q12HR IVPB 10/24/18 21:00 11/22/18 20:59 10/25/18 09:17 Lorazepam (Ativan 2mg/ml 1ml) 2 mg Q2H PRN IV agitation 10/24/18 20:00 10/30/18 19:59 Metoprolol Tartrate (Lopressor) 12.5 mg Q12HR ORAL 10/25/18 21:00 11/24/18 20:59 Morphine Sulfate (Morphine Sulfate) 4 mg Q4H PRN IVP Severe Pain (Pain Scale 7-10) 10/24/18 20:00 10/30/18 19:59 Nitroglycerin (Ntg) 0.4 mg Q5M PRN SL Prn Chest Pain 10/24/18 19:45 11/22/18 11:14 Ondansetron HCl (Zofran) 4 mg Q6H PRN IVP Nausea & Vomiting 10/24/18 20:00 11/22/18 19:59 Allergies: Coded Allergies: SULFAMETHOXAZOLE (Verified Allergy, Unknown, 10/18/17) TRIMETHOPRIM (Verified Allergy, Unknown, 10/18/17) UNABLE TO ASSESS (Unverified , 10/23/18) ROS Limited/Unobtainable: Yes Subjective 57 YO M admitted with breakthrough seizure. Cover for Int Med-Dr Ko. GUS. No new seizure Objective Last Vital Signs Date Time Temp Pulse Resp B/P (MAP) Pulse Ox O2 Delivery O2 Flow Rate FiO2 10/25/18 13:15 98 T-Piece 12.0 50 10/25/18 12:00 99.2 115 24 118/73 (88) Laboratory Tests Test 10/25/18 04:00 White Blood Count 5.8 K/UL (4.8-10.8) Red Blood Count 4.54 M/UL (4.70-6.10) L Hemoglobin 13.0 G/DL (14.2-18.0) L Hematocrit 41.2 % (42.0-52.0) L Mean Corpuscular Volume 91 FL (80-99) Mean Corpuscular Hemoglobin 28.6 PG (27.0-31.0) Mean Corpuscular Hemoglobin Concent 31.4 G/DL (32.0-36.0) L Red Cell Distribution Width 20.8 % (11.6-14.8) H Platelet Count 80 K/UL (150-450) L Mean Platelet Volume 7.9 FL (6.5-10.1) Neutrophils (%) (Auto) % (45.0-75.0) Lymphocytes (%) (Auto) % (20.0-45.0) Monocytes (%) (Auto) % (1.0-10.0) Eosinophils (%) (Auto) % (0.0-3.0) Basophils (%) (Auto) % (0.0-2.0) Differential Total Cells Counted 100 Neutrophils % (Manual) 77 % (45-75) H Lymphocytes % (Manual) 14 % (20-45) L Monocytes % (Manual) 9 % (1-10) Eosinophils % (Manual) 0 % (0-3) Basophils % (Manual) 0 % (0-2) Band Neutrophils 0 % (0-8) Platelet Estimate Decreased L Platelet Morphology Normal Anisocytosis 2+ Sodium Level 139 MMOL/L (136-145) Potassium Level 2.9 MMOL/L (3.5-5.1) L Chloride Level 102 MMOL/L (98-107) Carbon Dioxide Level 30 MMOL/L (21-32) Anion Gap 7 mmol/L (5-15) Blood Urea Nitrogen 8 mg/dL (7-18) Creatinine 0.4 MG/DL (0.55-1.30) L Estimat Glomerular Filtration Rate > 60 mL/min (>60) Glucose Level 89 MG/DL (74-106) Calcium Level 8.6 MG/DL (8.5-10.1) Microbiology Date/Time Source Procedure Growth Status 10/23/18 09:02 Blood Blood Culture - Preliminary NO GROWTH AFTER 24 HOURS Resulted 10/23/18 09:02 Blood Blood Culture - Preliminary NO GROWTH AFTER 24 HOURS Resulted 10/23/18 14:54 Nasal Nares MRSA Culture - Final Staphylococcus Aureus - Mrsa Complete 10/23/18 13:45 Sputum Induced Gram Stain - Final Resulted 10/23/18 13:45 Sputum Culture - Preliminary Gram Negative Bacillus 1 Staphylococcus Aureus Resulted 10/23/18 14:54 Rectum VRE Culture - Final Enterococcus Faecalis - Vre Resulted 10/23/18 14:54 Rectum Pending Resulted Intake and Output 10/24/18 10/25/18 19:00 07:00 Intake Total 1185 ml 1210 ml Output Total 600 ml 1000 ml Balance 585 ml 210 ml Intake Free Water 180 ml IV Total 925 ml 850 ml Tube Feeding 240 ml Other 80 ml 120 ml Output Urine Total 600 ml 1000 ml # Voids 2 # Bowel Movements 1 Objective PHYSICAL EXAMINATION: GENERAL: The patient is unresponsive, cannot follow commands, on the vent. HEAD AND NECK: Pupils are equal and reactive to light. Anicteric. Trach site is intact. NECK: Tracheostomy present. Supple. No JVD. LUNGS: Good air entry. No wheezing or rales. Poor inspiratory effort. Mechanical breath sounds. HEART: S1, S2. Distant heart sounds. No murmurs or gallops. ABDOMEN: Soft, nondistended, and nontender. Morbidly obese. PEG site is clean. GENITOURINARY: Suprapubic catheter was noted in the pelvic area. No sign of drainage. No sign of infection. EXTREMITIES: No cyanosis, clubbing, or edema. NEUROLOGIC: Limited secondary to the patient's quadriplegia as well as unable to move. Assessment/Plan Assessment/Plan ASSESSMENT: 1. Status epilepticus. 2. Acute on chronic respiratory failure, chronic vent-dependent patient, status post tracheostomy. 3. Status post PEG. 4. Quadriplegia. 5. Thrombocytopenia. 6. Hypothyroidism. 7. Morbid obesity. 8. Status post neurogenic bladder. 9. Status post suprapubic catheter placement. 10. Hypokalemia PLAN: 1. Admit the patient to ICU. 2. We will follow up with Dr. Garcia recommendations from Critical Care. 3. Monitor laboratory as well as cultures. 4. At this time, we would not give any antibiotic. 5. DVT prophylaxis with heparin subcutaneous. 6. Code status is Full Code. 7. We will monitor seizure precautions and Ativan as needed for seizure. 8. KCL per G-tube and 1/2 NS + 20 meq KCL/l @ 50 cc/hr Isidro Hernandez MD Oct 25, 2018 14:23
[2018-10-25] MEDS: 1/2NS w/KCl 20mEq 1000ml 1,000 ML IV SCH (15:31)
[2018-10-25] MEDS ORDERED: D5 1/2NS 1000ml IV ONE (15:38)
[2018-10-25] MEDS ORDERED: NS 275ml ONE (15:38)
[2018-10-25 16:00] VITALS: BP 120/80
--- NOTE | 2018-10-25 17:59 | NUR ---
CASE MANAGEMENT: REVIEW SI: STATUS EPILEPTICUS . CHRONIC RESP FAILURE T 97.9 HR 132 RR 24 BP 118/73 SAT 95% T-PIECE FIO2 50 H/H 13.0/41.2 K 2.9 IS: LOPRESSOR GT Q12HR HEPARIN SUBQ Q12HR KEPPRA IV Q12HR BACLOFEN GT Q6HR 1/2 NS w/KCl 20MEQ IVF @50ML/HR GT FEEDING STEP DOWN UNIT STATUS DCP: PATIENT [facility]
--- NOTE | 2018-10-25 19:25 | NUR ---
HAND-OFF: Report given to Rocio JOSEPH. Pt. remain stable.
--- NOTE | 2018-10-25 19:26 | NUR ---
NURSE NOTES: Received bedside report from OPAL Saravia.Patient stable,no s/s of pain,no respiratory diostress noted,A&O x1,nonverbal,T-Piece Shiley 6,uncapped,cool aerosol 50%,SR on web applications architect,GT running with Jevity 1.2 @ 30 ml/hr,goal is 50 ml/hr,BS active in all quadrants,suprapubic cath is in,IV asymptomatic intact on ERIC PICC line running with 1/2 NS w/KCl 20 mEq @ 50 ml/hr,bed secured in a low safety position,call light within a reach,will continue to monitor and follow POC.
[2018-10-25 20:00] VITALS: BP 116/69
[2018-10-25] MEDS: Dyna-Hex 2% Top Sol 2oz TOPIC SCH (21:23)
[2018-10-25] MEDS: Metoprolol Tartrate 12.5mg TAB ORAL SCH (21:24)
[2018-10-26] VITALS: BP 114/72
[2018-10-26] MEDS: Gabapentin 300 MG/6 ML Soln ORAL SCH ×3 (00:40→12:38)
[2018-10-26 04:00] VITALS: BP 127/73
[2018-10-26 05:17] LABS: HEMOGLOBIN 14.1 G/DL (14.2-18.0); MEAN CORPUSCULAR VOLUME 90 FL (80-99); PLATELET COUNT 95 K/UL (150-450); RED BLOOD COUNT 4.87 M/UL (4.70-6.10); RED CELL DISTRIBUTION WIDTH 20.6 % (11.6-14.8); WHITE BLOOD COUNT 7.2 K/UL (4.8-10.8)
[2018-10-26 05:26] LABS: ANION GAP 7 mmol/L (5-15); BLOOD UREA NITROGEN 8 mg/dL (7-18); CALCIUM 9.1 MG/DL (8.5-10.1); CARBON DIOXIDE 29 MMOL/L (21-32); CHLORIDE 104 MMOL/L (98-107); CREATININE 0.5 MG/DL (0.55-1.30); POTASSIUM 3.3 MMOL/L (3.5-5.1); SODIUM 139 MMOL/L (136-145)
--- NOTE | 2018-10-26 07:04 | NUR ---
HAND-OFF: Report given to OPAL Saravia.Patient stable.
--- NOTE | 2018-10-26 07:15 | NUR ---
NURSE NOTES: Received bedside report from Rocio JOSEPH. Pt. in bed, awake, eyes open, usually non-verbal. No sign of distress. No grimacing noted. PICC line at right upper arm with 2 lumen in placed patent/intact running 1/2 NS with Kcl 20 meq. at 50cc/hr. Tolerating well. HOB elevated at all times. On Jevity 1.2 at 50cc/hr. Tolerating well. Suprapubic cath in placed patent/intact draining yellow colored urine. Bed in low position, locked. Call light within reach. Will cont. to monitor.
--- NOTE | 2018-10-26 07:39 | NUR ---
NURSE NOTES: Called Dr. Palomino and spoke to him regarding pt. suprapubic patent/intact draining good but pt. urinating a little from his penis. He said it ok as long suprapubic is patent and draining well. Will cont. to monitor.
[2018-10-26 08:00] VITALS: BP 78/45
--- NOTE | 2018-10-26 08:35 | Urology Progress Note ---
Assessment/Plan Assessment/Plan: urinary retention with chronic SP tube neurogenic bladder renal cyst UTI/colonized keep SP tube, placed 10/24 some leakage, watch hand irrigated and position is satisfactory monitor clinically consider adding abx f/u on blood cx Subjective Allergies: Coded Allergies: SULFAMETHOXAZOLE (Verified Allergy, Unknown, 10/18/17) TRIMETHOPRIM (Verified Allergy, Unknown, 10/18/17) UNABLE TO ASSESS (Unverified , 10/23/18) Subjective all noted, new SP tube draining OK, some leakage Objective Last 24 Hour Vital Signs Date Time Temp Pulse Resp B/P (MAP) Pulse Ox O2 Delivery O2 Flow Rate FiO2 10/26/18 08:00 T-piece 10/26/18 08:00 97.3 97 20 78/45 (56) 98 10/26/18 07:00 97 T-Piece 12.0 50 10/26/18 04:00 99.1 119 22 127/73 (91) 98 10/26/18 04:00 T-piece 10/26/18 03:26 105 10/26/18 01:02 98 T-Piece 12.0 50 10/26/18 00:00 T-piece 10/26/18 00:00 98.8 128 20 114/72 (86) 95 10/25/18 23:31 117 10/25/18 21:24 120 116/69 10/25/18 20:00 T-piece 10/25/18 20:00 98.8 120 22 116/69 (85) 96 10/25/18 19:45 99 10/25/18 18:42 98 T-Piece 12.0 50 10/25/18 16:00 T-piece 10/25/18 16:00 98.1 126 23 120/80 (93) 95 10/25/18 15:30 132 10/25/18 13:15 98 T-Piece 12.0 50 10/25/18 12:00 T-piece 10/25/18 12:00 99.2 115 24 118/73 (88) 95 10/25/18 11:47 124 Intake and Output 10/25/18 10/26/18 18:59 06:59 Intake Total 1310 ml 1290 ml Output Total 1600 ml 330 ml Balance -290 ml 960 ml Intake Free Water 200 ml 150 ml IV Total 750 ml 700 ml Tube Feeding 360 ml 440 ml Output Urine Total 1600 ml 330 ml # Voids 2 # Bowel Movements 3 Microbiology Date/Time Source Procedure Growth Status 10/23/18 09:02 Blood Blood Culture - Preliminary NO GROWTH AFTER 48 HOURS Resulted 10/23/18 14:54 Nasal Nares MRSA Culture - Final Staphylococcus Aureus - Mrsa Complete 10/23/18 14:54 Rectum VRE Culture - Final Enterococcus Faecalis - Vre Resulted 10/23/18 14:54 Rectum Pending Resulted Current Medications Medications (Trade) Dose Ordered Sig/Vicenta Route PRN Reason Start Time Stop Time Status Last Admin Dose Admin Acetaminophen (Tylenol) 650 mg Q4H PRN ORAL T>100.5 10/24/18 20:00 11/22/18 19:59 Albuterol/ Ipratropium (Albuterol/ Ipratropium) 3 ml Q4H PRN HHN Shortness of Breath 10/24/18 20:00 10/28/18 19:59 Baclofen (Lioresal) 15 mg Q6HR ORAL 10/25/18 00:00 11/22/18 11:59 10/26/18 05:20 Chlorhexidine Gluconate (Caitlyn-Hex 2%) 1 applic DAILY@2000 TOPIC 10/24/18 20:00 11/22/18 19:59 10/25/18 21:23 Dextrose (Dextrose 50%) 25 ml Q30M PRN IV Hypoglycemia 10/24/18 19:45 11/22/18 11:14 Dextrose (Dextrose 50%) 50 ml Q30M PRN IV Hypoglycemia 10/24/18 19:45 11/22/18 11:14 Gabapentin (Neurontin) 800 mg Q6HR ORAL 10/25/18 00:00 11/22/18 19:29 10/26/18 05:20 Heparin Sodium (Porcine) (Heparin 5000 units/ml) 5,000 units EVERY 12 HOURS SUBQ 10/24/18 21:00 11/22/18 20:59 Levetiracetam 100 ml @ 400 mls/hr Q12HR IVPB 10/24/18 21:00 11/22/18 20:59 10/25/18 21:23 Lorazepam (Ativan 2mg/ml 1ml) 2 mg Q2H PRN IV agitation 10/24/18 20:00 10/30/18 19:59 Metoprolol Tartrate (Lopressor) 12.5 mg Q12HR ORAL 10/25/18 21:00 11/24/18 20:59 10/25/18 21:24 Morphine Sulfate (Morphine Sulfate) 4 mg Q4H PRN IVP Severe Pain (Pain Scale 7-10) 10/24/18 20:00 10/30/18 19:59 Nitroglycerin (Ntg) 0.4 mg Q5M PRN SL Prn Chest Pain 10/24/18 19:45 11/22/18 11:14 Ondansetron HCl (Zofran) 4 mg Q6H PRN IVP Nausea & Vomiting 10/24/18 20:00 11/22/18 19:59 Sodium 1,000 ml @ 50 mls/hr Q20H IV 10/25/18 15:00 11/24/18 14:59 10/25/18 15:31 Laboratory Tests 10/26/18 03:30: White Blood Count 7.2, Red Blood Count 4.87, Hemoglobin 14.1L, Hematocrit 44.0, Mean Corpuscular Volume 90, Mean Corpuscular Hemoglobin 29.0, Mean Corpuscular Hemoglobin Concent 32.1, Red Cell Distribution Width 20.6H, Platelet Count 95L, Mean Platelet Volume 7.2, Neutrophils (%) (Auto) , Lymphocytes (%) (Auto) , Monocytes (%) (Auto) , Eosinophils (%) (Auto) , Basophils (%) (Auto) , Sodium Level 139, Potassium Level 3.3L, Chloride Level 104, Carbon Dioxide Level 29, Anion Gap 7, Blood Urea Nitrogen 8, Creatinine 0.5L, Estimat Glomerular Filtration Rate > 60, Glucose Level 106, Calcium Level 9.1 Height (Feet): 5 Height (Inches): 10.00 Weight (Pounds): 202 Objective exam stable Ascencion Palomino MD Oct 26, 2018 08:35
[2018-10-26] MEDS: Metoprolol Tartrate 12.5mg TAB ORAL SCH (09:00)
[2018-10-26] MEDS: Heparin 5000 units/ml inj SUBQ SCH (09:00)
[2018-10-26] MEDS: levETIRAcetam 1,000mg/NS100ml 100 ML IVPB SCH (09:19)
--- NOTE | 2018-10-26 10:55 | NUR ---
*-* NO INSURANCE INFORMATION IN THE BAR UNABLE TO SEND CLINICALS OR REVIEWS *-*
[2018-10-26] MEDS: 1/2NS w/KCl 20mEq 1000ml 1,000 ML IV SCH (11:25)
[2018-10-26 12:00] VITALS: BP 125/77
--- NOTE | 2018-10-26 13:45 | NUR ---
NURSE NOTES: Called and left message to Dr. Garcia regarding pt. PICC line at right upper arm. Awaiting for response.
[2018-10-26] MEDS ORDERED: Sterile Water Irrig 1000ml IRRIG ONE (14:07)
[2018-10-26] MEDS ORDERED: NS 275ml ONE (14:08)
--- NOTE | 2018-10-26 14:20 | NUR ---
NURSE NOTES: Called [facility] and gave report to Joni JOSEPH.
--- NOTE | 2018-10-26 14:23 | Cardiac Electrophysiology PN ---
Assessment/Plan Assessment/Plan 1. Hypotension could be secondary to seizures versus sepsis. Blood pressure currently in 100s and 90s. Off Levophed Ruled out for myocardial infarction. His EKG shows sinus rhythm with right bundle-branch block.Echo EF 55% 2. Sinus tach. No fever or high WBC. No pain. Not anemic ? etiology Better on Lopressor 12.5 bid 3. Respiratory failure, status post tracheostomy, off the ventilator per Dr. Garcia. 4. Dysphagia, status post PEG placement. 5. Status post suprapubic catheter.Changed by Dr Palomino 6. Uncontrolled seizures, on Neurontin. 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 Subjective Alert in NAD. DC planning in progress. Sinus tach better Objective Last 24 Hour Vital Signs Date Time Temp Pulse Resp B/P (MAP) Pulse Ox O2 Delivery O2 Flow Rate FiO2 10/26/18 12:36 98 T-Piece 12.0 50 10/26/18 12:00 99.1 114 21 125/77 (93) 97 10/26/18 12:00 T-piece 10/26/18 09:00 97 78/45 10/26/18 08:00 T-piece 10/26/18 08:00 97.3 97 20 78/45 (56) 98 10/26/18 07:31 98 10/26/18 07:00 97 T-Piece 12.0 50 10/26/18 04:00 99.1 119 22 127/73 (91) 98 10/26/18 04:00 T-piece 10/26/18 03:26 105 10/26/18 01:02 98 T-Piece 12.0 50 10/26/18 00:00 T-piece 10/26/18 00:00 98.8 128 20 114/72 (86) 95 10/25/18 23:31 117 10/25/18 21:24 120 116/69 10/25/18 20:00 T-piece 10/25/18 20:00 98.8 120 22 116/69 (85) 96 10/25/18 19:45 99 10/25/18 18:42 98 T-Piece 12.0 50 10/25/18 16:00 T-piece 10/25/18 16:00 98.1 126 23 120/80 (93) 95 10/25/18 15:30 132 Intake and Output 10/25/18 10/26/18 18:59 06:59 Intake Total 1310 ml 1290 ml Output Total 1600 ml 330 ml Balance -290 ml 960 ml Intake Free Water 200 ml 150 ml IV Total 750 ml 700 ml Tube Feeding 360 ml 440 ml Output Urine Total 1600 ml 330 ml # Voids 2 # Bowel Movements 3 Laboratory Tests Test 10/26/18 03:30 White Blood Count 7.2 K/UL (4.8-10.8) Red Blood Count 4.87 M/UL (4.70-6.10) Hemoglobin 14.1 G/DL (14.2-18.0) L Hematocrit 44.0 % (42.0-52.0) Mean Corpuscular Volume 90 FL (80-99) Mean Corpuscular Hemoglobin 29.0 PG (27.0-31.0) Mean Corpuscular Hemoglobin Concent 32.1 G/DL (32.0-36.0) Red Cell Distribution Width 20.6 % (11.6-14.8) H Platelet Count 95 K/UL (150-450) L Mean Platelet Volume 7.2 FL (6.5-10.1) Neutrophils (%) (Auto) % (45.0-75.0) Lymphocytes (%) (Auto) % (20.0-45.0) Monocytes (%) (Auto) % (1.0-10.0) Eosinophils (%) (Auto) % (0.0-3.0) Basophils (%) (Auto) % (0.0-2.0) Sodium Level 139 MMOL/L (136-145) Potassium Level 3.3 MMOL/L (3.5-5.1) L Chloride Level 104 MMOL/L (98-107) Carbon Dioxide Level 29 MMOL/L (21-32) Anion Gap 7 mmol/L (5-15) Blood Urea Nitrogen 8 mg/dL (7-18) Creatinine 0.5 MG/DL (0.55-1.30) L Estimat Glomerular Filtration Rate > 60 mL/min (>60) Glucose Level 106 MG/DL (74-106) Calcium Level 9.1 MG/DL (8.5-10.1) Microbiology Date/Time Source Procedure Growth Status 10/23/18 14:54 Nasal Nares MRSA Culture - Final Staphylococcus Aureus - Mrsa Complete 10/23/18 14:54 Rectum VRE Culture - Final Enterococcus Faecalis - Vre Resulted 10/23/18 14:54 Rectum Pending Resulted Objective HEAD AND NECK: Status post tracheostomy, off the ventilator. LUNGS: Decreased breath sounds. CARDIOVASCULAR: Shows mild tachycardic. S1, S2 with no gallop. ABDOMEN: Status post G-tube and suprapubic catheter. EXTREMITIES: 1+ pitting edema. Rai Dobbs MD Oct 26, 2018 14:23
--- NOTE | 2018-10-26 15:25 | NUR ---
Discharge: Patient is being discharged to [facility] from medical care. Awake, alert x1. Report were given to Joni at subacute and gave report to P.I transportation. All medical devices such as jackscrew man and ID band were removed. Pt. discharged with right upper arm PICC line with 2 lumen and notify Joni RN at subacute about PICC line. Patient wheeled out with all personal belongings. Pt remain stable. R.T educated transporter regarding O2 with 10LPM via T-piece.
--- NOTE | 2018-10-27 08:51 | Discharge Summary ---
Discharge Summary Discharge Summary _ DATE OF ADMISSION: 10/23/2018 DATE OF DISCHARGE: 10/26/2018 DISCHARGED BY: Dr. Ko REASON FOR ADMISSION: 57 years old male with past medical history of chronic respiratory failure status post tracheostomy, COPD, GERD, neurogenic bladder, status post suprapubic catheter, polyneuropathy, seizure disorder, hypothyroidism, quadriplegia, presented from the halfway facility due to persistent seizures episodes. Patient in emergency department patient had seizure activity for about 15 minutes he had been given Versed by EMS prior to arrival patient was taken Keppra in a regular basis. Seizure was not controlled. Patient subsequently admitted to ICU for uncontrolled seizures CONSULTANTS: assistant professor of dietetics Dr. [facility]: Patient admitted to ICU. Seizure precaution maintained. Patient started on Keppra IV. Ativan was on board as needed for breakthrough seizure. Patient noted to be hypotensive . Rn Nursery followed. Patient started on pressors. Hemodynamic status was closely monitored with goal to keep mean arterial blood pressure above 65. Patient was able soon to be weaned from Levophed. Per assistant professor of dietetics, hypotension was most likely secondary to uncontrolled seizures. Serial troponin were negative. EKG revealed sinus rhythm with right bundle branch block. Patient was ruled out for acute myocardial infarction. Echocardiogram demonstrated preserved ejection fraction with mild left ventricular hypertrophy. No evidence of wall motion abnormality. Right ventricular systolic pressure of 13. Patient noted to be in sinus tachycardia. No fever , no leukocytosis, no pain, no anemia. Etiology of sinus tachycardia was unclear. Patient received bolus of fluid and started on low-dose of Lopressor 12.5 mg twice daily with overall improvement. DVT prophylaxis provided. Tracheostomy care provided. Pulmonary toilet with handheld nebulizing therapy with bronchodilator provided as needed. No signs of respiratory distress. Patient remained afebrile , no leukocytosis. Blood cultures were negative. Sputum culture revealed multidrug resistant Pseudomonas and MRSA , likely colonization, given no fevers, no leukocytosis. Chest x-ray revealed no acute cardiopulmonary pathology. Patient was kept off antibiotics. Renal parameters and electrolytes were closely monitored. Potassium was replaced. Platelet count was closely monitored: from initial 103 down to 95. Monitor platelet count at the facility Synthroid continued. Strict aspiration were maintained. G-tube feeding continued. Urologist seen and evaluated patient. Suprapubic catheter was exchanged on October 24. Urologist recommended hand irrigation as needed and monitor clinically. Supportive care provided. Pain management was addressed as needed. Antispasmodic provided as needed. Bowel regimen instituted. No further seizure activity. Patient clinically stabilized and was ready for transfer back to halfway facility for continuation of care. FINAL DIAGNOSES: Status epilepticus Hypotension, leading to shock ( and requiring pressor) Sinus tachycardia-resolved Acute on chronic respiratory failure with tracheostomy status Dysphagia , feeding by G-tube Quadriplegia Hypothyroidism Neurogenic bladder Status post suprapubic catheter exchange Thrombocytopenia Hypokalemia-replaced DISCHARGE MEDICATIONS: See Medication Reconciliation list. DISCHARGE INSTRUCTIONS: Patient was discharged to the halfway facility. Follow up with medical doctor at the facility. I have been assigned to dictate discharge summary for this account. I was not involved in the patient's management. Caitie Rose NP Oct 27, 2018 08:51
== END 2018-10-26 15:35 | DRG 53 ==
LOC: EDBD 08:56 → EDBEDREQ 09:10 → EMR 09:31 → ICU 09:44 → EDBEDREQ 12:25 → ICU 13:24 → 2W 10-24 20:00
PROC: 5A1945Z Respiratory Ventilation, 24-96 Consecutive Hours (ICD-10-PCS; principal; 2018-10-23)
DX: G40.901 Epilepsy, unspecified, not intractable, with status epilepticus (principal); J96.20 Acute and chronic respiratory failure, unspecified whether with hypoxia or hypercapnia; G82.50 Quadriplegia, unspecified; N39.0 Urinary tract infection, site not specified; R13.10 Dysphagia, unspecified; Z99.11 Dependence on respirator [ventilator] status; I95.9 Hypotension, unspecified; F06.1 Catatonic disorder due to known physiological condition; Z43.1 Encounter for attention to gastrostomy; Z43.0 Encounter for attention to tracheostomy; R00.0 Tachycardia, unspecified; Z88.1 Allergy status to other antibiotic agents; D69.6 Thrombocytopenia, unspecified; E03.9 Hypothyroidism, unspecified; E66.01 Morbid (severe) obesity due to excess calories; I45.10 Unspecified right bundle-branch block; N31.9 Neuromuscular dysfunction of bladder, unspecified; E87.6 Hypokalemia; R33.9 Retention of urine, unspecified; N28.1 Cyst of kidney, acquired; Z88.2 Allergy status to sulfonamides; G62.9 Polyneuropathy, unspecified
CPT/HCPCS: 36415; 36569; 36600; 71045; 76937; 80048; 80053; 80076; 80184; 80185; 82248; 82803; 83615; 83880; 84100; 84484; 85007; 85025; 85610; 85730; 87040; 87070; 87081; 87181; 87205; 93005; 93306; 94002; 94003; 94664; 96365; 99291; J8499

== ENCOUNTER 2018-10-28 11:40 | Inpatient (IN) | payer OTHER ==
[~2018-10-28] VITALS: Ht 162.6 cm; Wt 95.3 kg
[2018-10-28 11:40] VITALS: BP 102/68
[~2018-10-28 11:40] MED LIST changes: +ACETAMINOPHEN325 M1 GT; +ASPIRIN81 MG GT; +ATORVASTATIN CA10 MG GT; +DULCOLAX10 MG RC; +DUONEB 0.5-3(2.53 ML HHN; +FERROUS SU300 MG/52 GT; +FLEET ENEMA133 ML RECTAL; +KEPPRA500 M4 GT; +LEVETIRACE100 MG/1 M GT; +LEVOTHYROXINE125 MCG GT; +UTI-STAT L3875 MG/31 GT
--- NOTE | 2018-10-28 11:40 | NUR ---
ED Nurse Note: pt brought in to ER from SNF due to J-tube malfunctioning. drainage coming out from J-tube and tube is still in place. pt has trache but breathing in room air. skin clean and intact. pt has suprapubic catheter. pt is able to verbalize. pt is in gown and on nurse monitoring.
--- NOTE | 2018-10-28 11:55 | Emergency Room Report ---
History of Present Illness General Chief Complaint: Malfunctioning Gastric Tube Source: Medical Record Present Illness HPI 57-year-old male history of paraplegia, history of neurogenic bladder, trach, J tube placed 10/26/2018 presents with leaking J tube, since 1 day prior to arrival , no aggravating or alleviating factors severity is mild, patient has been able to receive nutrition through the J-tube, sent from residential to be a admitted for J-tube placement Allergies: Coded Allergies: SULFAMETHOXAZOLE (Verified Allergy, Unknown, 10/18/17) TRIMETHOPRIM (Verified Allergy, Unknown, 10/18/17) Patient History Limited by: medical condition - Patient with trach Past Medical History: see triage record Reviewed Nursing Documentation: PMH: Agreed; PSxH: Agreed Nursing Documentation-PMH Past Medical History: No History, Except For Hx Hypertension: Yes Hx Asthma: No - ACUTE RESPIRATORY FAILURE, TRACH Hx COPD: Yes Hx Cancer: No Hx Gastrointestinal Problems: Yes - GERD Hx Neurological Problems: Yes Hx Seizures: Yes Hx Epilepsy: Yes Review of Systems All Other Systems: limited - Patient with trach, shakes his head has no complaints Physical Exam Vital Signs Date Time Temp Pulse Resp B/P (MAP) Pulse Ox O2 Delivery O2 Flow Rate FiO2 10/28/18 11:39 97.7 79 18 102/68 (79) 99 Room Air Sp02 EP Interpretation: reviewed, normal General Appearance: well appearing, no apparent distress, alert Head: normocephalic, atraumatic Eyes: bilateral eye PERRL, bilateral eye EOMI ENT: uvula midline, moist mucus membranes Neck: supple, thyroid normal, supple/symm/no masses, other - Trach in place Respiratory: lungs clear, no respiratory distress, no retraction, no accessory muscle use Cardiovascular #1: normal peripheral pulses, regular rate, rhythm, no edema, no gallop, no murmur Gastrointestinal: non tender, soft, no guarding, no rebound, other - J-tube in position, suprapubic cath in place Musculoskeletal: normal inspection Neurologic: alert, responsive, other - All 4 extremities paralyzed Psychiatric: mood/affect normal Skin: no rash, warm/dry Medical Decision Making Diagnostic Impression: Primary Impression: Malfunction of jejunostomy tube Additional Impression: Hypokalemia ER Course 57 year old male's with J-tube malfunction leaking, patient will be admitted to Dr. Ko labs show hypokalemia Patient to be admitted for PEG tube exchange Laboratory Tests Test 10/28/18 12:00 White Blood Count 8.3 K/UL (4.8-10.8) Red Blood Count 4.68 M/UL (4.70-6.10) L Hemoglobin 13.3 G/DL (14.2-18.0) L Hematocrit 41.8 % (42.0-52.0) L Mean Corpuscular Volume 89 FL (80-99) Mean Corpuscular Hemoglobin 28.4 PG (27.0-31.0) Mean Corpuscular Hemoglobin Concent 31.9 G/DL (32.0-36.0) L Red Cell Distribution Width 20.6 % (11.6-14.8) H Platelet Count 71 K/UL (150-450) L Mean Platelet Volume 7.0 FL (6.5-10.1) Neutrophils (%) (Auto) % (45.0-75.0) Lymphocytes (%) (Auto) % (20.0-45.0) Monocytes (%) (Auto) % (1.0-10.0) Eosinophils (%) (Auto) % (0.0-3.0) Basophils (%) (Auto) % (0.0-2.0) Differential Total Cells Counted 100 Neutrophils % (Manual) 72 % (45-75) Lymphocytes % (Manual) 9 % (20-45) L Monocytes % (Manual) 11 % (1-10) H Eosinophils % (Manual) 1 % (0-3) Basophils % (Manual) 0 % (0-2) Band Neutrophils 7 % (0-8) Platelet Estimate Decreased L Platelet Morphology Normal Anisocytosis 1+ Prothrombin Time 12.2 SEC (9.30-11.50) H Prothrombin Time INR 1.2 (0.9-1.1) H PTT 32 SEC (23-33) Sodium Level 141 MMOL/L (136-145) Potassium Level 2.9 MMOL/L (3.5-5.1) L Chloride Level 105 MMOL/L (98-107) Carbon Dioxide Level 27 MMOL/L (21-32) Anion Gap 9 mmol/L (5-15) Blood Urea Nitrogen 33 mg/dL (7-18) H Creatinine 0.5 MG/DL (0.55-1.30) L Estimate Glomerular Filtration Rate > 60 mL/min (>60) Glucose Level 106 MG/DL (74-106) Calcium Level 9.2 MG/DL (8.5-10.1) Total Bilirubin 5.8 MG/DL (0.2-1.0) H Direct Bilirubin 2.3 MG/DL (0.0-0.3) H Aspartate Amino Transferase (AST) 42 U/L (15-37) H Alanine Aminotransferase (ALT) 47 U/L (12-78) Alkaline Phosphatase 543 U/L (46-116) H Total Protein 7.1 G/DL (6.4-8.2) Albumin 2.5 G/DL (3.4-5.0) L Globulin 4.6 g/dL Albumin/Globulin Ratio 0.5 (1.0-2.7) L EKG Diagnostic Results EKG Time: 11:47 EP Interpretation: NSR, rate 77, QTc 466, RBBB, no acute ST elevations Rate: normal Rhythm: NSR ST Segments: no acute changes Rhythm Strip Diag. Results Rhythm Strip Time: 11:54 EP Interpretation: yes Rate: 78 Rhythm: NSR, no PVC's, no ectopy Last Vital Signs Date Time Temp Pulse Resp B/P (MAP) Pulse Ox O2 Delivery O2 Flow Rate FiO2 10/28/18 11:39 97.7 79 18 102/68 (79) 99 Room Air Disposition: ADMITTED INPATIENT Condition: Stable Hank Friedman MD Oct 28, 2018 11:55
[2018-10-28 12:09] LABS: HEMATOCRIT 41.8 % (42.0-52.0); HEMOGLOBIN 13.3 G/DL (14.2-18.0); MEAN CORPUSCULAR VOLUME 89 FL (80-99); PLATELET COUNT 71 K/UL (150-450); RED BLOOD COUNT 4.68 M/UL (4.70-6.10); RED CELL DISTRIBUTION WIDTH 20.6 % (11.6-14.8); WHITE BLOOD COUNT 8.3 K/UL (4.8-10.8)
--- NOTE | 2018-10-28 12:20 | NUR ---
ED Nurse Note: Pt c/o headache 09/30. ERMD made aware.
[2018-10-28 12:23] LABS: INR 1.2 (0.9-1.1)
[2018-10-28 12:43] LABS: ANION GAP 9 mmol/L (5-15); BLOOD UREA NITROGEN 33 mg/dL (7-18); CALCIUM 9.2 MG/DL (8.5-10.1); CARBON DIOXIDE 27 MMOL/L (21-32); CHLORIDE 105 MMOL/L (98-107); CREATININE 0.5 MG/DL (0.55-1.30); POTASSIUM 2.9 MMOL/L (3.5-5.1); SODIUM 141 MMOL/L (136-145)
[2018-10-28 12:57] LABS: ALANINE AMINOTRANSFERASE 47 U/L (12-78); ALBUMIN 2.5 G/DL (3.4-5.0); ALBUMIN/GLOBULIN RATIO 0.5 (1.0-2.7); ALKALINE PHOSPHATASE 543 U/L (46-116); ASPARTATE AMINO TRANSFERASE 42 U/L (15-37); BILIRUBIN,TOTAL 5.8 MG/DL (0.2-1.0)
[2018-10-28 12:58] LABS: BILIRUBIN,DIRECT 2.3 MG/DL (0.0-0.3)
[2018-10-28] MEDS ORDERED: Morphine Sulfate 4mg/ml Inj (IV USE ONLY) IVP ONE (13:00)
--- NOTE | 2018-10-28 13:52 | NUR ---
ED Nurse Note: K thru G-tube has been cancelled by ERMD due to malfunctioning J-Tube.
--- NOTE | 2018-10-28 14:21 | NUR ---
ED Nurse Note: report given to OPAL Nunes.
--- NOTE | 2018-10-28 14:24 | NUR ---
ED Nurse Note: pt left unit with 1 tar processing technician in stable condition.
[2018-10-28 14:30] VITALS: BP 116/77
[2018-10-28] MEDS ORDERED: Metoclopramide 10mg/2ml Inj IVP PRN (14:30)
[2018-10-28] MEDS ORDERED: Morphine Sulfate 2mg/ml Inj(IV/IM USE ONLY) IVP PRN (14:30)
[2018-10-28] MEDS ORDERED: Nitroglycerin Subl 0.4mg tab SL PRN (14:30)
[2018-10-28] MEDS ORDERED: Promethazine HCl 25 MG in NS 55 ML IV PRN (14:30)
[2018-10-28] MEDS ORDERED: Promethazine HCl 12.5 MG in NS 55 ML IV PRN (14:30)
[2018-10-28] MEDS ORDERED: LORazepam Inj 2mg/ml 1ml IV PRN (14:30)
[2018-10-28] MEDS ORDERED: Miralax 17gm pkt ORAL PRN (14:30)
--- NOTE | 2018-10-28 14:30 | NUR ---
NURSE NOTES: Received report from OPAL Marina in ED. Pt brought to room 415-2 via [place]. Pt is alert, disorient, talkative, with trach in place on room air, no respiratory distress noted, no complaints of pain, pt is talkative, and able to answer questions, admitted with suprapubic catheter in place, draining orange urine, pt has ERIC DL PICC 18g inserted prior to admission, PICC is patent, Pt is admitted with midabdominal J-tube, leaking yellow fluid, dressing changed on J-tube and suprapubic catheter sites, vitals obtained and assessment done, see flowsheet. Skin is intact, with old sacral scaring. Pt placed in bed, oriented to room and bed controls and call light. Seizure precautions implemented. Bed in lowest position, call light within reach.
[2018-10-28] MEDS: D5 1/2NS 1,000 ML IV SCH (15:38)
[2018-10-28 16:00] VITALS: BP 119/72
[2018-10-28] MEDS ORDERED: NS 275ml ONE (16:00)
[2018-10-28] MEDS: levETIRAcetam 500mg/5ml Liquid GT SCH (17:38)
[2018-10-28] MEDS: Gabapentin 300 MG/6 ML Soln GT SCH (17:39)
--- NOTE | 2018-10-28 17:39 | NUR ---
NURSE NOTES: RN notified PETAR Singleton of J-tube malfunction. RN flushed J-tube, all contents leaked out of J-tube site. PETAR Singleton stated not to use J-tube at this time. Addendum: 10/28/18 at 1740 by PASTORA ARAUJO RN NURSE NOTES: No medication given due to leaking J-tube. PETAR Singleton aware.
--- NOTE | 2018-10-28 17:43 | NUR ---
NURSE NOTES: Notified Dr. Garcia K 2.9 and J-tube is not functioning, recommended IVPB KCL replacement
--- NOTE | 2018-10-28 19:20 | NUR ---
NURSE NOTES: Received report from OPAL Byrd. Patient is in bed, awake and disoriented. Patient is on room air with no distress or SOB noted. Trach is in place. Patient is currently NPO per MD request. Side rails padded for seizure precautions. Patient was admitted with PICC line in the R upper arm, intact and patent. J-tube is in place but leaking yellow fluid. Suprapubic catheter in place and draining urine. HOB elevated. Bed locked and in lowest position with call light in easy reach.
--- NOTE | 2018-10-28 19:52 | NUR ---
HAND-OFF: Report given to OPAL Dawson.
[2018-10-28 20:00] VITALS: BP 118/74
--- NOTE | 2018-10-28 20:04 | Consultation ---
History of Present Illness General Date patient seen: Oct 28, 2018 Chief Complaint: Malfunctioning Gastric Tube Present Illness HPI 57-year-old male history of chronic respiratory failure, paraplegia, history of neurogenic bladder, trach, presented to ER with leaking J tube for one day prior to arrival, no aggravating or alleviating factors severity is mild, patient has been able to receive nutrition through the J-tube, sent from [facility] to be a admitted for J-tube placement Allergies: Coded Allergies: SULFAMETHOXAZOLE (Verified Allergy, Unknown, 10/18/17) TRIMETHOPRIM (Verified Allergy, Unknown, 10/18/17) Medication History Scheduled Ascorbic Acid* (Vitamin C*), 500 MG GT DAILY, (Reported) Aspirin* (Aspirin*), 81 MG GT DAILY, (Reported) Atorvastatin Calcium* (Lipitor*), 10 MG GT BEDTIME, (Reported) Chlorhexidine Gluconate* (Hibiclens*), 15 ML ORAL BID, (Reported) Cholecalciferol (Vitamin D3)* (Vitamin D*), 5,000 UNIT GT DAILY, (Reported) Cran/Vitc/Mannose/Inulin/Brom (Uti-Stat Liquid), 3,875 MG GT BID, (Reported) Docusate Sodium* (Colace*), 100 MG GT DAILY, (Reported) Famotidine (Famotidine), 20 MG GT TWICE A DAY, (Reported) Ferrous Sulfate (Ferrous Sulfate), 7.5 ML GT DAILY, (Reported) Gabapentin* (Gabapentin*), 600 MG ORAL Q6HR, (Reported) Levetiracetam* (Levetiracetam*), 500 MG GT TID, (Reported) Levothyroxine Sodium* (Levothyroxine Sodium*), 125 MCG GT DAILY, (Reported) Multivit &Minerals/Ferrous Fum (Multivitamin Liquid), 5 ML GT DAILY, (Reported) Scheduled PRN Acetaminophen* (Acetaminophen 325MG Tablet*), 650 MG GT Q4H PRN for Mild Pain/ Temp > 100.5, (Reported) Bisacodyl (Dulcolax), 10 MG RC PRN PRN for CONSTIPATION IF MOM INEFFECTIV, ( Reported) Dextran 70/Hypromellose (Artificial Tears Eye Drops*), 1 DROP BOTH EYES Q6HR PRN for Dry Eyes, (Reported) Hydrocodone Bit/Acetaminophen 5-325* ([place] 5-325*), 1 TAB GT Q12HR PRN for Moderate Pain (Pain Scale 4-6), (Reported) Ipratropium/Albuterol Sulfate (DuoNeb 0.5-3(2.5)mg/3ml), 3 ML HHN Q3HR PRN for Shortness of Breath, (Reported) Magnesium Hydroxide* (Milk Of Magnesia*), 30 ML GT DAILY PRN for Constipation, ( Reported) Na Phos,M-B/Na Phos,Di-Ba* (Fleet Enema*), 133 ML RECTAL DAILY PRN for Constipation, (Reported) Patient History Healthcare decision maker N Resuscitation status Full Code Advanced Directive on File No Past Medical/Surgical History Past Medical/Surgical History: (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 (2) COPD (chronic obstructive pulmonary disease) (3) Seizures (4) ICD (implantable cardioverter-defibrillator) in place (5) Paroxysmal A-fib Review of Systems All Other Systems: negative except mentioned in HPI Physical Exam General Appearance: WD/WN Lines, tubes and drains: peripheral, central line HEENT: normocephalic, atraumatic Neck: non-tender, normal alignment Respiratory/Chest: chest wall non-tender, lungs clear Breasts: no masses Cardiovascular/Chest: normal peripheral pulses Abdomen: normal bowel sounds, non tender Genitourinary/Rectal: normal genital exam Extremities: normal range of motion Last 24 Hour Vital Signs Date Time Temp Pulse Resp B/P (MAP) Pulse Ox O2 Delivery O2 Flow Rate FiO2 10/28/18 16:00 96.0 93 14 119/72 (88) 98 10/28/18 15:11 Room Air 10/28/18 14:30 16 116/77 (90) 99 10/28/18 14:25 98.2 89 17 96/54 98 Room Air 10/28/18 13:38 97.7 10/28/18 11:40 97.7 89 18 102/68 99 Room Air 10/28/18 11:39 97.7 79 18 102/68 (79) 99 Room Air Laboratory Tests Test 10/28/18 12:00 White Blood Count 8.3 K/UL (4.8-10.8) Red Blood Count 4.68 M/UL (4.70-6.10) L Hemoglobin 13.3 G/DL (14.2-18.0) L Hematocrit 41.8 % (42.0-52.0) L Mean Corpuscular Volume 89 FL (80-99) Mean Corpuscular Hemoglobin 28.4 PG (27.0-31.0) Mean Corpuscular Hemoglobin Concent 31.9 G/DL (32.0-36.0) L Red Cell Distribution Width 20.6 % (11.6-14.8) H Platelet Count 71 K/UL (150-450) L Mean Platelet Volume 7.0 FL (6.5-10.1) Neutrophils (%) (Auto) % (45.0-75.0) Lymphocytes (%) (Auto) % (20.0-45.0) Monocytes (%) (Auto) % (1.0-10.0) Eosinophils (%) (Auto) % (0.0-3.0) Basophils (%) (Auto) % (0.0-2.0) Differential Total Cells Counted 100 Neutrophils % (Manual) 72 % (45-75) Lymphocytes % (Manual) 9 % (20-45) L Monocytes % (Manual) 11 % (1-10) H Eosinophils % (Manual) 1 % (0-3) Basophils % (Manual) 0 % (0-2) Band Neutrophils 7 % (0-8) Platelet Estimate Decreased L Platelet Morphology Normal Anisocytosis 1+ Prothrombin Time 12.2 SEC (9.30-11.50) H Prothromb Time International Ratio 1.2 (0.9-1.1) H Activated Partial Thromboplast Time 32 SEC (23-33) Sodium Level 141 MMOL/L (136-145) Potassium Level 2.9 MMOL/L (3.5-5.1) L Chloride Level 105 MMOL/L (98-107) Carbon Dioxide Level 27 MMOL/L (21-32) Anion Gap 9 mmol/L (5-15) Blood Urea Nitrogen 33 mg/dL (7-18) H Creatinine 0.5 MG/DL (0.55-1.30) L Estimat Glomerular Filtration Rate > 60 mL/min (>60) Glucose Level 106 MG/DL (74-106) Calcium Level 9.2 MG/DL (8.5-10.1) Total Bilirubin 5.8 MG/DL (0.2-1.0) H Direct Bilirubin 2.3 MG/DL (0.0-0.3) H Aspartate Amino Transf (AST/SGOT) 42 U/L (15-37) H Alanine Aminotransferase (ALT/SGPT) 47 U/L (12-78) Alkaline Phosphatase 543 U/L (46-116) H Total Protein 7.1 G/DL (6.4-8.2) Albumin 2.5 G/DL (3.4-5.0) L Globulin 4.6 g/dL Albumin/Globulin Ratio 0.5 (1.0-2.7) L Height (Feet): 5 Height (Inches): 5.00 Weight (Pounds): 180 Medications Current Medications Medications (Trade) Dose Ordered Sig/Vicenta Route PRN Reason Start Time Stop Time Status Last Admin Dose Admin Acetaminophen (Tylenol) 650 mg Q4H PRN ORAL fever 10/28/18 14:30 11/27/18 14:29 Dextrose (Dextrose 50%) 25 ml Q30M PRN IV Hypoglycemia 10/28/18 14:30 11/27/18 14:29 Dextrose (Dextrose 50%) 50 ml Q30M PRN IV Hypoglycemia 10/28/18 14:30 11/27/18 14:29 Dextrose/Sodium Chloride 1,000 ml @ 75 mls/hr [id number] IV 10/28/18 14:22 11/27/18 14:21 10/28/18 15:38 Diphenhydramine HCl (Benadryl) 25 mg Q6H PRN ORAL Itching/Pruritis 10/28/18 14:30 11/27/18 14:29 Gabapentin (Neurontin) 600 mg Q6HR GT 10/28/18 18:00 11/27/18 17:59 Heparin Sodium (Porcine) (Heparin 5000 units/ml) 5,000 units EVERY 12 HOURS SUBQ 10/28/18 21:00 11/27/18 20:59 Levetiracetam (Keppra) 500 mg TID GT 10/28/18 18:00 11/27/18 17:59 Levothyroxine Sodium (Synthroid) 125 mcg DAILY GT 10/29/18 09:00 11/28/18 08:59 Lorazepam (Ativan 2mg/ml 1ml) 1 mg Q4H PRN IV agitation 10/28/18 14:30 11/04/18 14:29 Metoclopramide HCl (Reglan) 10 mg Q6H PRN IVP severe nausea 10/28/18 14:30 11/27/18 14:29 Morphine Sulfate (Morphine Sulfate) 2 mg Q4H PRN IVP severe Pain (Pain Scale 7-10) 10/28/18 14:30 11/04/18 14:29 Nitroglycerin (Ntg) 0.4 mg Q5M X 3 DOSES PRN SL Prn Chest Pain 10/28/18 14:30 11/27/18 14:29 Ondansetron HCl (Zofran) 4 mg Q6H PRN IVP Nausea & Vomiting 10/28/18 14:30 11/27/18 14:29 Pantoprazole (Protonix) 40 mg DAILY IV 10/29/18 09:00 11/28/18 08:59 Polyethylene Glycol (Miralax) 17 gm HSPRN PRN ORAL Constipation 10/28/18 14:30 11/27/18 14:29 Promethazine HCl (Phenergan) 25 mg Q6H PRN IM REFRACTORY N/V 10/28/18 17:15 11/27/18 17:14 Temazepam (Restoril) 15 mg HSPRN PRN ORAL Insomnia 10/28/18 14:30 11/04/18 14:29 Assessment/Plan Problem List: (1) Sepsis ICD Codes: A41.9 - Sepsis, unspecified organism SNOMED: 37869070 (2) Malfunction of gastrostomy tube ICD Codes: K94.23 - Gastrostomy malfunction SNOMED: 128357027 (3) COPD (chronic obstructive pulmonary disease) ICD Codes: J44.9 - Chronic obstructive pulmonary disease, unspecified SNOMED: 44458327 (4) ICD (implantable cardioverter-defibrillator) in place ICD Codes: Z95.810 - Presence of automatic (implantable) cardiac defibrillator SNOMED: 631102021 (5) 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
--- NOTE | 2018-10-28 20:05 | NUR ---
NURSE NOTES: Notified PETAR Singleton K is 2.9 recommended IVPB replacement and plts 71. PETAR Singleton ordered 40 mEq KCL IVPB to be given
--- NOTE | 2018-10-28 20:33 | NUR ---
CASE MANAGEMENT: REVIEW 57Y/M BIBA FROM [facility] CC: J-TUBE MALFUNCTION . J TUBE PLACED 10/26/2018 SI: PARAPLEGIA . HYPOKALEMIA T 96.0 HR 93 RR 14 BP 96/54 SAT 98% ROOM AIR H/H 13.3/41.8 K 2.9 BUN 33. CR 0.5 IS: MORPHINE IV X1 KCl 10MEQ IV X1 K-DUR 40MEQU GT X1 NPO SURGICAL CONSULT FOR EGD PATIENT ADMITTED TO MED/SURG UNIT 10/28/2018 DCP: PATIENT IS FROM [facility]
[2018-10-28] MEDS: Heparin 5000 units/ml inj SUBQ SCH (21:00)
[2018-10-29] VITALS: BP 115/73
--- NOTE | 2018-10-29 00:20 | NUR ---
NURSE NOTES: Called patient's next of kin, Elsie Saldaña for consent of EDG procedure. Left message. Waiting for call back.
[2018-10-29] MEDS: D5 1/2NS 1,000 ML IV SCH ×4 (03:42→15:02)
[2018-10-29 04:00] VITALS: BP 118/80
--- NOTE | 2018-10-29 04:45 | NUR ---
NURSE NOTES: Received consent for GI procedure over the telephone from patient's next of kin - Sister in law. Charge nurse witnessed.
[2018-10-29] MEDS: Gabapentin 300 MG/6 ML Soln GT SCH ×4 (06:00→18:00)
[2018-10-29 06:32] LABS: HEMATOCRIT 40.3 % (42.0-52.0); HEMOGLOBIN 12.9 G/DL (14.2-18.0); MEAN CORPUSCULAR VOLUME 91 FL (80-99); PLATELET COUNT 90 K/UL (150-450); RED BLOOD COUNT 4.43 M/UL (4.70-6.10); RED CELL DISTRIBUTION WIDTH 19.7 % (11.6-14.8); WHITE BLOOD COUNT 6.9 K/UL (4.8-10.8)
[2018-10-29 06:42] LABS: ANION GAP 8 mmol/L (5-15); BLOOD UREA NITROGEN 28 mg/dL (7-18); CALCIUM 9.2 MG/DL (8.5-10.1); CARBON DIOXIDE 28 MMOL/L (21-32); CHLORIDE 105 MMOL/L (98-107); CREATININE 0.6 MG/DL (0.55-1.30); POTASSIUM 3.3 MMOL/L (3.5-5.1); SODIUM 141 MMOL/L (136-145)
[2018-10-29 06:47] LABS: AMYLASE 19 U/L (25-115)
[2018-10-29 06:55] LABS: ALANINE AMINOTRANSFERASE 42 U/L (12-78); ALBUMIN 2.5 G/DL (3.4-5.0); ALBUMIN/GLOBULIN RATIO 0.5 (1.0-2.7); ALKALINE PHOSPHATASE 499 U/L (46-116); ASPARTATE AMINO TRANSFERASE 40 U/L (15-37); BILIRUBIN,TOTAL 5.8 MG/DL (0.2-1.0)
[2018-10-29 06:56] LABS: BILIRUBIN,DIRECT 2.1 MG/DL (0.0-0.3)
[2018-10-29 07:01] LABS: INR 1.1 (0.9-1.1)
--- NOTE | 2018-10-29 07:39 | NUR ---
NURSE NOTES: HANDOFF RECEIVED FROM OPAL GIANG. PATIENT RECEIVED STABLE ON ROOM AIR. BED IN THE LOCKED AND LOWEST POSITION, CALL LIGHT WITHIN REACH. IV FLUIDS RUNNING AT PRESCRIBED RATE. NO PHYSICAL SIGNS OF DISTRESS.
--- NOTE | 2018-10-29 07:40 | NUR ---
HAND-OFF: Report given to OPAL Vargas.
[2018-10-29 08:00] VITALS: BP 100/62
[2018-10-29] MEDS ORDERED: Levothyroxine 125mcg tab GT SCH (09:00)
[2018-10-29] MEDS: levETIRAcetam 500mg/5ml Liquid GT SCH ×3 (09:00→18:00)
[2018-10-29] MEDS: Heparin 5000 units/ml inj SUBQ SCH ×2 (09:00→21:00)
[2018-10-29] MEDS ORDERED: Pantoprazole Inj IV SCH (09:00)
--- NOTE | 2018-10-29 09:23 | NUR ---
NURSE NOTES: paged dr Ko re hr and temp, also left msg for dr Garcia if ok to tylenol rectal and transfer to tele,awaiting call back
--- NOTE | 2018-10-29 10:34 | NUR ---
NURSE NOTES: received call and spoke w dr Ko, received order for transfer to tele, blood cx x2 , made aware that we cannot give metoprolol iv on this floor
--- NOTE | 2018-10-29 10:35 | NUR ---
NURSE NOTES: notified sup Mignon re transfer order
--- NOTE | 2018-10-29 10:39 | GI Initial Consult Note ---
History of Present Illness General Date patient seen: Oct 29, 2018 Time patient seen: 10:31 Reason for Hospitalization: Malfunctioning Gastric Tube Referring physician: MARIAMA SANCHEZ Reason for Consultation: MALFUNCTIONING GJ TUBE Present Illness HPI 57-year-old male history of paraplegia, history of neurogenic bladder, trach, J tube placed 10/26/2018 presents with leaking J tube, since 1 day prior to arrival , no aggravating or alleviating factors severity is mild, patient has been able to receive nutrition through the J-tube, [facility] GI consulted for reported J-tube dislodgment. ROS limited, patient is trach and J-tube dependent. All information obtained from medical record. Patient was admitted here at [facility] post J-tube placement back on October 22, 2017. The patient presents today with J-tube dislodgment, noted that the balloon is outside the abdomen. Pertinent labs; no leukocytosis, hemoglobin at 12.9, total bilirubin 5.8, direct bilirubin 2.1, AST of 40. Home Meds Reported Medications Cran/Vitc/Mannose/Inulin/Brom (UTI-STAT LIQUID) 3,875 Mg/30 Ml Liquid, 3875 MG GT BID, ML 10/24/18 Na Phos,M-B/Na Phos,Di-Ba* (FLEET ENEMA*) 133 Ml Enema, 133 ML RECTAL DAILY PRN for Constipation, ML 0 Refills IF DULCOLAX INEFFECTIVE 10/24/18 Ferrous Sulfate (Ferrous Sulfate) 300 Mg/5 Ml Liquid, 7.5 ML GT DAILY, ML 10/24/18 Bisacodyl (DULCOLAX) 10 Mg Supp.rect, 10 MG RC PRN PRN for CONSTIPATION IF MOM INEFFECTIV, SUPP 10/24/18 Levetiracetam* (LEVETIRACETAM*) 100 Mg/1 Ml Solution, 500 MG GT TID 10/24/18 Ipratropium/Albuterol Sulfate (DuoNeb 0.5-3(2.5)mg/3ml) 3 Ml Ampul.neb, 3 ML HHN Q3HR PRN for Shortness of Breath 10/24/18 Acetaminophen* (ACETAMINOPHEN 325MG TABLET*) 325 Mg Tablet, 650 MG GT Q4H PRN for Mild Pain/Temp > 100.5, TAB 10/24/18 Levothyroxine Sodium* (LEVOTHYROXINE SODIUM*) 125 Mcg Tablet, 125 MCG GT DAILY, TAB Take in the morning on an empty stomach, at least 30 minutes before food. 10/24/18 Atorvastatin Calcium* (LIPITOR*) 10 Mg Tablet, 10 MG GT BEDTIME, TAB 10/24/18 Aspirin* (ASPIRIN*) 81 Mg Tab.chew, 81 MG GT DAILY, TAB 10/24/18 Multivit &Minerals/Ferrous Fum (MULTIVITAMIN LIQUID) 9 Mg/15 Ml Liquid, 5 ML GT DAILY, ML 10/18/17 Magnesium Hydroxide* (MILK OF MAGNESIA*) 400 Mg/5 Ml Oral.susp, 30 ML GT DAILY PRN for Constipation, ML 10/18/17 Cholecalciferol (Vitamin D3)* (VITAMIN D*) 1,000 Unit Tablet, 5000 UNIT GT DAILY , TAB 10/18/17 Dextran 70/Hypromellose (ARTIFICIAL TEARS EYE DROPS*) 15 Ml Drops, 1 DROP BOTH EYES Q6HR PRN for dry eyes, #15 ML 0 Refills 10/18/17 Ascorbic Acid* (VITAMIN C*) 500 Mg Tablet, 500 MG GT DAILY, #30 TAB 0 Refills 10/17/17 Hydrocodone Bit/Acetaminophen 5-325* (NORCO 5-325*) 1 Each Tablet, 1 TAB GT Q6H PRN for Moderate Pain (Pain Scale 4-6), TAB 10/17/17 Gabapentin (GABAPENTIN) 300 Mg/6 Ml Solution, 600 MG GT Q6HR, ML 10/17/17 Famotidine (FAMOTIDINE) 20 Mg Tablet, 20 MG GT TWICE A DAY 10/17/17 Docusate Sodium* (COLACE*) 100 Mg Capsule, 100 MG GT DAILY, CAP 10/17/17 Discontinued Reported Medications Levetiracetam (KEPPRA) 500 Mg Tablet, 500 MG GT TID, #60 TAB 0 Refills 10/23/18 Baclofen* (BACLOFEN*) 10 Mg Tablet, 15 MG ORAL Q6HR, TAB 10/18/17 Albuterol Sulfate* (ALBUTEROL SULFATE HHN*) 2.5 Mg/3 Ml Vial.neb, 3 ML INH Q3HR PRN for Shortness of Breath, EA 10/18/17 Acetaminophen* (TYLENOL*) 120 Mg Supp.rect, 650 MG PO Q4H, SUPP 10/17/17 Metoprolol Tartrate* (METOPROLOL TARTRATE*) 50 Mg Tablet, 50 MG ORAL DAILY, TAB 0 Refills 10/17/17 Levothyroxine Sodium (Levothyroxine Sodium) 200 Mcg Vial, 125 MCG PO DAILY, VIAL 10/17/17 Atorvastatin (Lipitor) 80 Mg Tablet, 10 MG ORAL BEDTIME, #30 TAB 0 Refills 10/17/17 Aspirin (Aspirin) 300 Mg Supp.rect, 81 MG PO DAILY PRN for Mild Pain/Temp > 100.5, SUPP 0 Refills 10/17/17 Med list reviewed/reconciled: Yes Allergies: Coded Allergies: SULFAMETHOXAZOLE (Verified Allergy, Unknown, 10/18/17) TRIMETHOPRIM (Verified Allergy, Unknown, 10/18/17) Patient History Limited by: medical condition History Provided By: Medical Record PMH Narrative Limited by: medical condition - Patient with trach Past Medical History: see triage record Reviewed Nursing Documentation: PMH: Agreed; PSxH: Agreed Nursing Documentation-PMH Past Medical History: No History, Except For Hx Hypertension: Yes Hx Asthma: No - ACUTE RESPIRATORY FAILURE, TRACH Hx COPD: Yes Hx Cancer: No Hx Gastrointestinal Problems: Yes - GERD Hx Neurological Problems: Yes Hx Seizures: Yes Hx Epilepsy: Yes Social History: Denies: smoking, alcohol use, drug use, other Review of Systems All Other Systems: limited Physical Exam Vital Signs Date Time Temp Pulse Resp B/P (MAP) Pulse Ox O2 Delivery O2 Flow Rate FiO2 10/28/18 11:39 97.7 79 18 102/68 (79) 99 Room Air Sp02 EP Interpretation: reviewed Labs Laboratory Tests Test 10/28/18 12:00 10/29/18 05:28 White Blood Count 8.3 K/UL (4.8-10.8) 6.9 K/UL (4.8-10.8) Red Blood Count 4.68 M/UL (4.70-6.10) L 4.43 M/UL (4.70-6.10) L Hemoglobin 13.3 G/DL (14.2-18.0) L 12.9 G/DL (14.2-18.0) L Hematocrit 41.8 % (42.0-52.0) L 40.3 % (42.0-52.0) L Mean Corpuscular Volume 89 FL (80-99) 91 FL (80-99) Mean Corpuscular Hemoglobin 28.4 PG (27.0-31.0) 29.0 PG (27.0-31.0) Mean Corpuscular Hemoglobin Concent 31.9 G/DL (32.0-36.0) L 31.9 G/DL (32.0-36.0) L Red Cell Distribution Width 20.6 % (11.6-14.8) H 19.7 % (11.6-14.8) H Platelet Count 71 K/UL (150-450) L 90 K/UL (150-450) L Mean Platelet Volume 7.0 FL (6.5-10.1) 7.6 FL (6.5-10.1) Neutrophils (%) (Auto) % (45.0-75.0) % (45.0-75.0) Lymphocytes (%) (Auto) % (20.0-45.0) % (20.0-45.0) Monocytes (%) (Auto) % (1.0-10.0) % (1.0-10.0) Eosinophils (%) (Auto) % (0.0-3.0) % (0.0-3.0) Basophils (%) (Auto) % (0.0-2.0) % (0.0-2.0) Differential Total Cells Counted 100 100 Neutrophils % (Manual) 72 % (45-75) 82 % (45-75) H Lymphocytes % (Manual) 9 % (20-45) L 6 % (20-45) L Monocytes % (Manual) 11 % (1-10) H 10 % (1-10) Eosinophils % (Manual) 1 % (0-3) 1 % (0-3) Basophils % (Manual) 0 % (0-2) 1 % (0-2) Band Neutrophils 7 % (0-8) 0 % (0-8) Platelet Estimate Decreased L Decreased L Platelet Morphology Normal Normal Anisocytosis 1+ 2+ Prothrombin Time 12.2 SEC (9.30-11.50) H 11.6 SEC (9.30-11.50) H Prothromb Time International Ratio 1.2 (0.9-1.1) H 1.1 (0.9-1.1) Activated Partial Thromboplast Time 32 SEC (23-33) 31 SEC (23-33) Sodium Level 141 MMOL/L (136-145) 141 MMOL/L (136-145) Potassium Level 2.9 MMOL/L (3.5-5.1) L 3.3 MMOL/L (3.5-5.1) L Chloride Level 105 MMOL/L (98-107) 105 MMOL/L (98-107) Carbon Dioxide Level 27 MMOL/L (21-32) 28 MMOL/L (21-32) Anion Gap 9 mmol/L (5-15) 8 mmol/L (5-15) Blood Urea Nitrogen 33 mg/dL (7-18) H 28 mg/dL (7-18) H Creatinine 0.5 MG/DL (0.55-1.30) L 0.6 MG/DL (0.55-1.30) Estimat Glomerular Filtration Rate > 60 mL/min (>60) > 60 mL/min (>60) Glucose Level 106 MG/DL (74-106) 97 MG/DL (74-106) Calcium Level 9.2 MG/DL (8.5-10.1) 9.2 MG/DL (8.5-10.1) Total Bilirubin 5.8 MG/DL (0.2-1.0) H 5.8 MG/DL (0.2-1.0) H Direct Bilirubin 2.3 MG/DL (0.0-0.3) H 2.1 MG/DL (0.0-0.3) H Aspartate Amino Transf (AST/SGOT) 42 U/L (15-37) H 40 U/L (15-37) H Alanine Aminotransferase (ALT/SGPT) 47 U/L (12-78) 42 U/L (12-78) Alkaline Phosphatase 543 U/L (46-116) H 499 U/L (46-116) H Total Protein 7.1 G/DL (6.4-8.2) 7.3 G/DL (6.4-8.2) Albumin 2.5 G/DL (3.4-5.0) L 2.5 G/DL (3.4-5.0) L Globulin 4.6 g/dL 4.8 g/dL Albumin/Globulin Ratio 0.5 (1.0-2.7) L 0.5 (1.0-2.7) L Amylase Level 19 U/L (25-115) L Lipase 48 U/L (73-393) L General Appearance: no apparent distress Head: normocephalic EENT: normal ENT inspection Neck: supple Cardiovascular: normal rate Gastrointestinal: other - see HPI Skin: normal inspection, normal color, no rash, warm/dry Lymphatic: normal inspection, no adenopathy Current Medications Current Medications Medications (Trade) Dose Ordered Sig/Vicenta Route PRN Reason Start Time Stop Time Status Last Admin Dose Admin Acetaminophen (Tylenol) 650 mg Q4H PRN ORAL fever 10/28/18 14:30 11/27/18 14:29 Chlorhexidine Gluconate (Caitlyn-Hex 2%) 1 applic DAILY@2000 TOPIC 10/29/18 20:00 11/28/18 19:59 Dextrose (Dextrose 50%) 25 ml Q30M PRN IV Hypoglycemia 10/28/18 14:30 11/27/18 14:29 Dextrose (Dextrose 50%) 50 ml Q30M PRN IV Hypoglycemia 10/28/18 14:30 11/27/18 14:29 Dextrose/Sodium Chloride 1,000 ml @ 75 mls/hr [id number] IV 10/28/18 14:22 11/27/18 14:21 10/28/18 15:38 Diphenhydramine HCl (Benadryl) 25 mg Q6H PRN ORAL Itching/Pruritis 10/28/18 14:30 11/27/18 14:29 Gabapentin (Neurontin) 600 mg Q6HR GT 10/28/18 18:00 11/27/18 17:59 Heparin Sodium (Porcine) (Heparin 5000 units/ml) 5,000 units EVERY 12 HOURS SUBQ 10/28/18 21:00 11/27/18 20:59 Levetiracetam (Keppra) 500 mg TID GT 10/28/18 18:00 11/27/18 17:59 Levothyroxine Sodium (Synthroid) 125 mcg DAILY GT 10/29/18 09:00 11/28/18 08:59 Lorazepam (Ativan 2mg/ml 1ml) 1 mg Q4H PRN IV agitation 10/28/18 14:30 11/04/18 14:29 Metoclopramide HCl (Reglan) 10 mg Q6H PRN IVP severe nausea 10/28/18 14:30 11/27/18 14:29 Morphine Sulfate (Morphine Sulfate) 2 mg Q4H PRN IVP severe Pain (Pain Scale 7-10) 10/28/18 14:30 11/04/18 14:29 Nitroglycerin (Ntg) 0.4 mg Q5M X 3 DOSES PRN SL Prn Chest Pain 10/28/18 14:30 11/27/18 14:29 Ondansetron HCl (Zofran) 4 mg Q6H PRN IVP Nausea & Vomiting 10/28/18 14:30 11/27/18 14:29 Pantoprazole (Protonix) 40 mg DAILY IV 10/29/18 09:00 11/28/18 08:59 Polyethylene Glycol (Miralax) 17 gm HSPRN PRN ORAL Constipation 10/28/18 14:30 11/27/18 14:29 Promethazine HCl (Phenergan) 25 mg Q6H PRN IM REFRACTORY N/V 10/28/18 17:15 11/27/18 17:14 Temazepam (Restoril) 15 mg HSPRN PRN ORAL Insomnia 10/28/18 14:30 11/04/18 14:29 GI: Plan Problems: (1) Malfunction of gastrostomy tube (2) Malfunction of jejunostomy tube Plan Plan for J-tube versus GJ tube replacement today. Maintain n.p.o. plus IV fluids Obtain abdominal ultrasound given elevated LFTs Monitor H&H, PRN transfusions PPI Electrolyte correction We will follow with additional recommendations post procedure Discussed with Dr. Lehman. Thank you for this patient referral, we will follow. The patient was seen and examined at bedside and all new and available data was reviewed in the patients chart. I agree with the above findings, impression and plan. (Patient seen earlier today. Signature stamp does not reflect patient encounter time.). - MD Day [facility] Oct 29, 2018 10:39
[2018-10-29] MEDS ORDERED: Acetaminophen 650 MG SUPP RECTAL PRN ×2 (10:45→14:45)
[2018-10-29] MEDS ORDERED: fentaNYL 100 mcg/2 mL IV PRN ×2 (11:00→12:00)
[2018-10-29] MEDS ORDERED: Midazolam 2mg/2ml Inj IVP PRN ×2 (11:00→12:00)
[2018-10-29] MEDS ORDERED: DiphenhydrAMINE 50mg/ml Inj IVP PRN ×2 (11:00→12:00)
[2018-10-29] MEDS ORDERED: Atropine Inj 1mg/10ml Syr IV PRN ×2 (11:00→12:00)
--- NOTE | 2018-10-29 11:21 | Anethesia Preoperative Eval ---
Anesthesia Pre-op PMH/ROS General Date of Evaluation: Oct 29, 2018 Time of Evaluation: 10:52 Anesthesiologist: so ASA Score: ASA 3 Mallampati Score Class I : Soft palate, uvula, fauces, pillars visible Class II: Soft palate, uvula, fauces visible Class III: Soft palate, base of uvula visible Class IV: Only hard plate visible Mallampati Classification: Class II Surgeon: chris Diagnosis: j-tube malfunction Surgical Procedure: egd/change g-tube to gj tube Social History: smoking - former smoker Allergies: Coded Allergies: SULFAMETHOXAZOLE (Verified Allergy, Unknown, 10/18/17) TRIMETHOPRIM (Verified Allergy, Unknown, 10/18/17) Medications: see eMAR Patient NPO?: Yes NPO Date: Oct 28, 2018 NPO Time: 19:30 Past Medical History Cardiovascular: Reports: HTN Pulmonary: Reports: asthma, COPD, other - chronic respiratory failure, tracheostomy Gastrointestinal/Genitourinary: Reports: GERD, other - g-tube malfunction, j- tube malfunction, dysphagia, Neurologic/Psychiatric: Reports: depression/anxiety, other - epilepsy, neurogenic bladder Endocrine: Reports: hypothyroidism HEENT: Reports: cataract (L), cataract (R) Hematology/Immune: Reports: other - sepsis, hypokalemia Anesthesia Pre-op Phys. Exam Physician Exam Last Vital Signs Date Time Temp Pulse Resp B/P (MAP) Pulse Ox O2 Delivery O2 Flow Rate FiO2 10/29/18 09:00 Trach Collar 10/29/18 08:00 101.0 147 20 100/62 (75) 98 Airway Exam Mallampati Score: Class II Anesthesia Pre-op A/P Labs Hematology Test 10/28/18 12:00 10/29/18 05:28 White Blood Count 8.3 K/UL (4.8-10.8) 6.9 K/UL (4.8-10.8) Red Blood Count 4.68 M/UL (4.70-6.10) L 4.43 M/UL (4.70-6.10) L Hemoglobin 13.3 G/DL (14.2-18.0) L 12.9 G/DL (14.2-18.0) L Hematocrit 41.8 % (42.0-52.0) L 40.3 % (42.0-52.0) L Mean Corpuscular Volume 89 FL (80-99) 91 FL (80-99) Mean Corpuscular Hemoglobin 28.4 PG (27.0-31.0) 29.0 PG (27.0-31.0) Mean Corpuscular Hemoglobin Concent 31.9 G/DL (32.0-36.0) L 31.9 G/DL (32.0-36.0) L Red Cell Distribution Width 20.6 % (11.6-14.8) H 19.7 % (11.6-14.8) H Platelet Count 71 K/UL (150-450) L 90 K/UL (150-450) L Mean Platelet Volume 7.0 FL (6.5-10.1) 7.6 FL (6.5-10.1) Neutrophils (%) (Auto) % (45.0-75.0) % (45.0-75.0) Lymphocytes (%) (Auto) % (20.0-45.0) % (20.0-45.0) Monocytes (%) (Auto) % (1.0-10.0) % (1.0-10.0) Eosinophils (%) (Auto) % (0.0-3.0) % (0.0-3.0) Basophils (%) (Auto) % (0.0-2.0) % (0.0-2.0) Differential Total Cells Counted 100 100 Neutrophils % (Manual) 72 % (45-75) 82 % (45-75) H Lymphocytes % (Manual) 9 % (20-45) L 6 % (20-45) L Monocytes % (Manual) 11 % (1-10) H 10 % (1-10) Eosinophils % (Manual) 1 % (0-3) 1 % (0-3) Basophils % (Manual) 0 % (0-2) 1 % (0-2) Band Neutrophils 7 % (0-8) 0 % (0-8) Platelet Estimate Decreased L Decreased L Platelet Morphology Normal Normal Anisocytosis 1+ 2+ Coagulation Test 10/28/18 12:00 10/29/18 05:28 Prothrombin Time 12.2 SEC (9.30-11.50) H 11.6 SEC (9.30-11.50) H Prothromb Time International Ratio 1.2 (0.9-1.1) H 1.1 (0.9-1.1) Activated Partial Thromboplast Time 32 SEC (23-33) 31 SEC (23-33) Chemistry Test 10/28/18 12:00 10/29/18 05:28 Sodium Level 141 MMOL/L (136-145) 141 MMOL/L (136-145) Potassium Level 2.9 MMOL/L (3.5-5.1) L 3.3 MMOL/L (3.5-5.1) L Chloride Level 105 MMOL/L (98-107) 105 MMOL/L (98-107) Carbon Dioxide Level 27 MMOL/L (21-32) 28 MMOL/L (21-32) Anion Gap 9 mmol/L (5-15) 8 mmol/L (5-15) Blood Urea Nitrogen 33 mg/dL (7-18) H 28 mg/dL (7-18) H Creatinine 0.5 MG/DL (0.55-1.30) L 0.6 MG/DL (0.55-1.30) Estimat Glomerular Filtration Rate > 60 mL/min (>60) > 60 mL/min (>60) Glucose Level 106 MG/DL (74-106) 97 MG/DL (74-106) Calcium Level 9.2 MG/DL (8.5-10.1) 9.2 MG/DL (8.5-10.1) Total Bilirubin 5.8 MG/DL (0.2-1.0) H 5.8 MG/DL (0.2-1.0) H Direct Bilirubin 2.3 MG/DL (0.0-0.3) H 2.1 MG/DL (0.0-0.3) H Aspartate Amino Transf (AST/SGOT) 42 U/L (15-37) H 40 U/L (15-37) H Alanine Aminotransferase (ALT/SGPT) 47 U/L (12-78) 42 U/L (12-78) Alkaline Phosphatase 543 U/L (46-116) H 499 U/L (46-116) H Total Protein 7.1 G/DL (6.4-8.2) 7.3 G/DL (6.4-8.2) Albumin 2.5 G/DL (3.4-5.0) L 2.5 G/DL (3.4-5.0) L Globulin 4.6 g/dL 4.8 g/dL Albumin/Globulin Ratio 0.5 (1.0-2.7) L 0.5 (1.0-2.7) L Amylase Level 19 U/L (25-115) L Lipase 48 U/L (73-393) L Risk Assessment & Plan Assessment: asa3. febrile with tachycardia. Plan: patient is being transferred to telemetry for a higher level of care. when stable, mac Status Change Before Surgery: Yes - febrile (101.0) with tachycardia (147) at 8a and 10a today. @4a temp was 97.6 and heart rate was 92. Pre-Antibiotics Drug: Stephanie Meyer MD Oct 29, 2018 11:21
--- NOTE | 2018-10-29 11:55 | NUR ---
NURSE NOTES: Received report from OPAL Vargas. Observed patient in bed, awake, verbally responsive, confused. On room air, no respiratory distress noted. quality assurance monitor applied, shows sinus tachycardia with HR 134. Right upper arm PICC line intact and patent with IV fluids running at prescribed rate. JT noted, nurse reported non functioning. Suprapubic catheter intact and patent, draining well to gravity. Safety precautions in place. Bed locked, alarmed, and in lowest position, padded side rails up x3, and call light left within reach. Will continue to monitor.
[2018-10-29 12:00] VITALS: BP 93/60
[2018-10-29] MEDS ORDERED: Nitroglycerin Subl 0.4mg tab SL PRN (12:00)
--- NOTE | 2018-10-29 12:09 | NUR ---
NURSE NOTES: Dr Ko notified regarding pt's HR. Advised by Dr Ko to call Dr Garcia for orders. Dr Garcia notified and made aware, awaiting for call back orders.
[2018-10-29] MEDS ORDERED: Morphine Sulfate 2mg/ml Inj(IV/IM USE ONLY) IVP PRN (12:30)
[2018-10-29] MEDS ORDERED: LORazepam Inj 2mg/ml 1ml IV PRN (12:30)
[2018-10-29] MEDS ORDERED: Metoclopramide 10mg/2ml Inj IVP PRN (12:30)
--- NOTE | 2018-10-29 13:22 | NUR ---
RD ASSESSMENT & RECOMMENDATIONS SEE CARE ACTIVITY FOR COMPLETE ASSESSMENT DAILY ESTIMATED NEEDS: Needs based on Pulmonary, quadriplegia 79.5kg adj 23-28 kcals/kg 1627-6230 total kcals 1.25-1.5 g protein/kg 99-119 g total protein 25-30 mL/kg 2972-2784 total fluid mLs NUTRITION DIAGNOSIS: Swallowing difficulty r/t respiratory status as evidenced by pt is vent dep via T-collar, PEG dep. 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
[2018-10-29] MEDS ORDERED: Miralax 17gm pkt ORAL PRN (14:30)
--- NOTE | 2018-10-29 14:42 | NUR ---
NURSE NOTES: Dr Garcia called back with new orders, EKG stat, CXR stat, and echo. Orders noted, transmitted, and carried out. Patient's HR 126 at this time. Will continue to monitor patient.
--- NOTE | 2018-10-29 15:18 | Diagnostic Imaging Report ---
Indication: Dyspnea Comparison: 10/28/2018 A single view chest radiograph was obtained. Findings: Left hemidiaphragm is elevated but this appears stable. PICC line and tracheostomy noted. Cardiomegaly is stable. Bones are osteopenic. IMPRESSION: No change from the prior day
--- NOTE | 2018-10-29 15:46 | NUR ---
*-* INSURANCE *-* ALL CLINICALS AND REVIEWS HAVE BEEN FAXED TO: [facility] [phone] HE IS END PACKER ASSIGNED REF#[id number] END PACKER: JAXON PH#[phone] FAX#[phone] REVIEWS/CLINICAL
[2018-10-29 16:00] VITALS: BP 102/69
[2018-10-29] MEDS ORDERED: FOSAMAX70 MG ORAL (18:07)
[2018-10-29] MEDS ORDERED: AMITRIPTYLINE25 MG ORAL (18:09)
[2018-10-29] MEDS ORDERED: ARTIFICIAL TEAR15 ML BOTH EYES (18:15)
[2018-10-29] MEDS ORDERED: GABAPENTIN600 MG ORAL (18:17)
[2018-10-29] MEDS ORDERED: HIBICLENS118 ML ORAL (18:20)
--- NOTE | 2018-10-29 19:16 | Pulmonology Progress Note ---
Assessment/Plan Problems: (1) Seizures (2) Sepsis (3) Chronic respiratory failure (4) Malfunction of gastrostomy tube Assessment/Plan cxr reviewed, was negative tachycardia most likely secondary to sepsis ID consult called. Subjective ROS Limited/Unobtainable: Yes Allergies: Coded Allergies: SULFAMETHOXAZOLE (Verified Allergy, Unknown, 10/18/17) TRIMETHOPRIM (Verified Allergy, Unknown, 10/18/17) Objective Last 24 Hour Vital Signs Date Time Temp Pulse Resp B/P (MAP) Pulse Ox O2 Delivery O2 Flow Rate FiO2 10/29/18 16:00 98.6 126 20 102/69 (80) 95 10/29/18 15:41 122 10/29/18 15:27 122 10/29/18 12:00 100.3 134 20 93/60 (71) 98 10/29/18 11:44 135 10/29/18 09:00 Trach Collar 10/29/18 08:00 101.0 147 20 100/62 (75) 98 10/29/18 04:00 97.6 92 17 118/80 (93) 95 10/29/18 00:00 98.5 69 17 115/73 (87) 98 10/28/18 21:00 Room Air 10/28/18 20:00 97.6 98 17 118/74 (89) 95 Intake and Output 10/28/18 10/29/18 19:00 07:00 Intake Total 175 ml 675 ml Output Total 600 ml 400 ml Balance -425 ml 275 ml Intake Oral 0 ml IV Total 175 ml 675 ml Output Urine Total 600 ml 400 ml # Bowel Movements 2 General Appearance: WD/WN HEENT: normocephalic, atraumatic Respiratory/Chest: lungs clear, normal breath sounds Cardiovascular: normal peripheral pulses, normal rate, no JVD Abdomen: soft, non tender Extremities: no clubbing Lymphatic: no neck adenopathy Laboratory Tests 10/29/18 05:28: White Blood Count 6.9, Red Blood Count 4.43L, Hemoglobin 12.9L, Hematocrit 40.3L , Mean Corpuscular Volume 91, Mean Corpuscular Hemoglobin 29.0, Mean Corpuscular Hemoglobin Concent 31.9L, Red Cell Distribution Width 19.7H, Platelet Count 90L, Mean Platelet Volume 7.6, Neutrophils (%) (Auto) , Lymphocytes (%) (Auto) , Monocytes (%) (Auto) , Eosinophils (%) (Auto) , Basophils (%) (Auto) , Differential Total Cells Counted 100, Neutrophils % ( Manual) 82H, Lymphocytes % (Manual) 6L, Monocytes % (Manual) 10, Eosinophils % ( Manual) 1, Basophils % (Manual) 1, Band Neutrophils 0, Platelet Estimate DecreasedL, Platelet Morphology Normal, Anisocytosis 2+, Prothrombin Time 11.6H , Prothromb Time International Ratio 1.1, Activated Partial Thromboplast Time 31 , Sodium Level 141, Potassium Level 3.3L, Chloride Level 105, Carbon Dioxide Level 28, Anion Gap 8, Blood Urea Nitrogen 28H, Creatinine 0.6, Estimat Glomerular Filtration Rate > 60, Glucose Level 97, Calcium Level 9.2, Total Bilirubin 5.8H, Direct Bilirubin 2.1H, Aspartate Amino Transf (AST/SGOT) 40H, Alanine Aminotransferase (ALT/SGPT) 42, Alkaline Phosphatase 499H, Total Protein 7.3, Albumin 2.5L, Globulin 4.8, Albumin/Globulin Ratio 0.5L, Amylase Level 19L, Lipase 48L Current Medications Medications (Trade) Dose Ordered Sig/Vicenta Route PRN Reason Start Time Stop Time Status Last Admin Dose Admin Acetaminophen (Tylenol) 650 mg Q4H PRN ORAL fever 10/29/18 12:30 11/27/18 12:29 Acetaminophen (Tylenol) 650 mg Q4H PRN RECTAL Mild Pain (Pain Scale 1-3) 10/29/18 14:45 11/28/18 10:44 Chlorhexidine Gluconate (Caitlyn-Hex 2%) 1 applic DAILY@2000 TOPIC 10/29/18 20:00 11/28/18 19:59 Dextrose (Dextrose 50%) 25 ml Q30M PRN IV Hypoglycemia 10/29/18 12:30 11/27/18 14:29 Dextrose (Dextrose 50%) 50 ml Q30M PRN IV Hypoglycemia 10/29/18 12:30 11/27/18 14:29 Dextrose/Sodium Chloride 1,000 ml @ 75 mls/hr [id number] IV 10/29/18 12:00 11/27/18 14:21 10/29/18 15:02 Diphenhydramine HCl (Benadryl) 25 mg Q6H PRN ORAL Itching/Pruritis 10/29/18 12:30 11/27/18 12:29 Gabapentin (Neurontin) 600 mg Q6HR GT 10/29/18 12:00 11/27/18 17:59 Heparin Sodium (Porcine) (Heparin 5000 units/ml) 5,000 units EVERY 12 HOURS SUBQ 10/29/18 21:00 11/27/18 20:59 Levetiracetam (Keppra) 500 mg TID GT 10/29/18 13:00 11/27/18 17:59 Levothyroxine Sodium (Synthroid) 125 mcg DAILY GT 10/30/18 09:00 11/28/18 08:59 Lorazepam (Ativan 2mg/ml 1ml) 1 mg Q4H PRN IV agitation 10/29/18 12:30 11/04/18 12:29 Metoclopramide HCl (Reglan) 10 mg Q6H PRN IVP severe nausea 10/29/18 12:30 11/27/18 12:29 Morphine Sulfate (Morphine Sulfate) 2 mg Q4H PRN IVP severe Pain (Pain Scale 7-10) 10/29/18 12:30 11/04/18 12:29 Nitroglycerin (Ntg) 0.4 mg Q5M X 3 DOSES PRN SL Prn Chest Pain 10/29/18 12:00 11/27/18 14:29 Ondansetron HCl (Zofran) 4 mg Q6H PRN IVP Nausea & Vomiting 10/29/18 12:30 11/27/18 12:29 Pantoprazole (Protonix) 40 mg DAILY IV 10/30/18 09:00 11/28/18 08:59 Polyethylene Glycol (Miralax) 17 gm HSPRN PRN ORAL Constipation 10/29/18 14:30 11/27/18 14:29 Promethazine HCl (Phenergan) 25 mg Q6H PRN IM REFRACTORY N/V 10/29/18 12:30 11/27/18 12:29 Temazepam (Restoril) 15 mg HSPRN PRN ORAL Insomnia 10/29/18 12:30 11/04/18 12:29 Mellissa Garcia MD Oct 29, 2018 19:16
--- NOTE | 2018-10-29 19:20 | NUR ---
HAND-OFF: Report given to OPAL Masters. Patient in stable condition.
--- NOTE | 2018-10-29 19:25 | NUR ---
NURSE NOTES: Received report from OPAL Marroquin. Patient in bed awake showing no signs of acute distress. Respiration even and non labored on room air. No sob noted. AOx1. Jtube noted to be leaking. Dressing intact. Suprapubic cath. on, patent, intact and draining. Right UA PICC 2 lumen noted running D5 0.45 NS @ 75cc/hr, patent and intact. PICC dressing intact. HR elevated, showing MD FREDERICK aware. Call light within reach. Bed in lowest position, wheels locked and alarm on. All needs attended and met. Will continue plan of care.
[2018-10-29] MEDS ORDERED: Amikacin Rx to dose MISC PRN (19:30)
--- NOTE | 2018-10-29 19:49 | History & Physical ---
History and Physical History & Physicial Dictated for Int Med-Dr Ko no. [id number] Isidro Hernandez MD Oct 29, 2018 19:49
[2018-10-29 20:00] VITALS: BP 122/80
[2018-10-29] MEDS ORDERED: Dyna-Hex 2% Top Sol 2oz TOPIC SCH (20:00)
--- NOTE | 2018-10-29 20:30 | Consultation ---
History of Present Illness General Date patient seen: Oct 29, 2018 Chief Complaint: Malfunctioning Gastric Tube Referring physician: MARIAMA SANCHEZ Reason for Consultation: MALFUNCTIONING GJ TUBE Present Illness HPI 57 y/o M with hx of paraplegia, neurogenic bladder, COPD, GERD, seizure disorder , s/p trach, dysphagia s/p J tube placement 10/22/18, [place] resident presents to ED on 10/28 with 1 day of J tube leaking. Evaluate by GI, noted J-tube dislodgment with balloon outside the abdomen Allergies: Coded Allergies: SULFAMETHOXAZOLE (Verified Allergy, Unknown, 10/18/17) TRIMETHOPRIM (Verified Allergy, Unknown, 10/18/17) Medication History Scheduled Ascorbic Acid* (Vitamin C*), 500 MG GT DAILY, (Reported) Aspirin* (Aspirin*), 81 MG GT DAILY, (Reported) Atorvastatin Calcium* (Lipitor*), 10 MG GT BEDTIME, (Reported) Chlorhexidine Gluconate* (Hibiclens*), 15 ML ORAL BID, (Reported) Cholecalciferol (Vitamin D3)* (Vitamin D*), 5,000 UNIT GT DAILY, (Reported) Cran/Vitc/Mannose/Inulin/Brom (Uti-Stat Liquid), 3,875 MG GT BID, (Reported) Docusate Sodium* (Colace*), 100 MG GT DAILY, (Reported) Famotidine (Famotidine), 20 MG GT TWICE A DAY, (Reported) Ferrous Sulfate (Ferrous Sulfate), 7.5 ML GT DAILY, (Reported) Gabapentin* (Gabapentin*), 600 MG ORAL Q6HR, (Reported) Levetiracetam* (Levetiracetam*), 500 MG GT TID, (Reported) Levothyroxine Sodium* (Levothyroxine Sodium*), 125 MCG GT DAILY, (Reported) Multivit &Minerals/Ferrous Fum (Multivitamin Liquid), 5 ML GT DAILY, (Reported) Scheduled PRN Acetaminophen* (Acetaminophen 325MG Tablet*), 650 MG GT Q4H PRN for Mild Pain/ Temp > 100.5, (Reported) Bisacodyl (Dulcolax), 10 MG RC PRN PRN for CONSTIPATION IF MOM INEFFECTIV, ( Reported) Dextran 70/Hypromellose (Artificial Tears Eye Drops*), 1 DROP BOTH EYES Q6HR PRN for Dry Eyes, (Reported) Hydrocodone Bit/Acetaminophen 5-325* ([place] 5-325*), 1 TAB GT Q12HR PRN for Moderate Pain (Pain Scale 4-6), (Reported) Ipratropium/Albuterol Sulfate (DuoNeb 0.5-3(2.5)mg/3ml), 3 ML HHN Q3HR PRN for Shortness of Breath, (Reported) Magnesium Hydroxide* (Milk Of Magnesia*), 30 ML GT DAILY PRN for Constipation, ( Reported) Na Phos,M-B/Na Phos,Di-Ba* (Fleet Enema*), 133 ML RECTAL DAILY PRN for Constipation, (Reported) Discontinued Medications Acetaminophen* (Tylenol*), 650 MG PO Q4H, (Reported) Discontinued Reason: Prescription changed Albuterol Sulfate* (Albuterol Sulfate Hhn*), 3 ML INH Q3HR PRN for Shortness of Breath, (Reported) Discontinued Reason: Prescription changed Aspirin (Aspirin), 81 MG PO DAILY PRN for Mild Pain/Temp > 100.5, (Reported) Discontinued Reason: Prescription changed Atorvastatin (Lipitor), 10 MG ORAL BEDTIME, (Reported) Discontinued Reason: Prescription changed Baclofen* (Baclofen*), 15 MG ORAL Q6HR, (Reported) Discontinued Reason: Therapy completed Levetiracetam (Keppra), 500 MG GT TID, (Reported) Discontinued Reason: Prescription changed Levothyroxine Sodium (Levothyroxine Sodium), 125 MCG PO DAILY, (Reported) Discontinued Reason: Prescription changed Metoprolol Tartrate* (Metoprolol Tartrate*), 50 MG ORAL DAILY, (Reported) Discontinued Reason: Therapy completed Patient History Healthcare decision maker SELF Resuscitation status Full Code Advanced Directive on File No Patient History Narrative Pmhx: as above Shx: reviewed Fhx: non contributory Review of Systems All Other Systems: negative except mentioned in HPI Physical Exam Physical Exam Narrative General Appearance: well appearing, no apparent distress, alert Head: normocephalic, atraumatic Eyes: bilateral eye PERRL, bilateral eye EOMI ENT: uvula midline, moist mucus membranes Neck: supple, thyroid normal, supple/symm/no masses, other - Trach in place Respiratory: lungs clear, no respiratory distress, no retraction, no accessory muscle use Cardiovascular: normal peripheral pulses, regular rate, rhythm, no edema, no gallop, no murmur Gastrointestinal: non tender, soft, no guarding, no rebound, other - J-tube in position, suprapubic cath in place Musculoskeletal: normal inspection Neurologic: alert, responsive, other - All 4 extremities paralyzed Psychiatric: mood/affect normal Skin: no rash, warm/dry Last 24 Hour Vital Signs Date Time Temp Pulse Resp B/P (MAP) Pulse Ox O2 Delivery O2 Flow Rate FiO2 10/29/18 16:00 98.6 126 20 102/69 (80) 95 10/29/18 15:41 122 10/29/18 15:27 122 10/29/18 12:00 100.3 134 20 93/60 (71) 98 10/29/18 11:44 135 10/29/18 09:00 Trach Collar 10/29/18 08:00 101.0 147 20 100/62 (75) 98 10/29/18 04:00 97.6 92 17 118/80 (93) 95 10/29/18 00:00 98.5 69 17 115/73 (87) 98 10/28/18 21:00 Room Air Intake and Output 10/28/18 10/29/18 19:00 07:00 Intake Total 175 ml 675 ml Output Total 600 ml 400 ml Balance -425 ml 275 ml Intake Oral 0 ml IV Total 175 ml 675 ml Output Urine Total 600 ml 400 ml # Bowel Movements 2 Laboratory Tests Test 10/29/18 05:28 White Blood Count 6.9 K/UL (4.8-10.8) Red Blood Count 4.43 M/UL (4.70-6.10) L Hemoglobin 12.9 G/DL (14.2-18.0) L Hematocrit 40.3 % (42.0-52.0) L Mean Corpuscular Volume 91 FL (80-99) Mean Corpuscular Hemoglobin 29.0 PG (27.0-31.0) Mean Corpuscular Hemoglobin Concent 31.9 G/DL (32.0-36.0) L Red Cell Distribution Width 19.7 % (11.6-14.8) H Platelet Count 90 K/UL (150-450) L Mean Platelet Volume 7.6 FL (6.5-10.1) Neutrophils (%) (Auto) % (45.0-75.0) Lymphocytes (%) (Auto) % (20.0-45.0) Monocytes (%) (Auto) % (1.0-10.0) Eosinophils (%) (Auto) % (0.0-3.0) Basophils (%) (Auto) % (0.0-2.0) Differential Total Cells Counted 100 Neutrophils % (Manual) 82 % (45-75) H Lymphocytes % (Manual) 6 % (20-45) L Monocytes % (Manual) 10 % (1-10) Eosinophils % (Manual) 1 % (0-3) Basophils % (Manual) 1 % (0-2) Band Neutrophils 0 % (0-8) Platelet Estimate Decreased L Platelet Morphology Normal Anisocytosis 2+ Prothrombin Time 11.6 SEC (9.30-11.50) H Prothromb Time International Ratio 1.1 (0.9-1.1) Activated Partial Thromboplast Time 31 SEC (23-33) Sodium Level 141 MMOL/L (136-145) Potassium Level 3.3 MMOL/L (3.5-5.1) L Chloride Level 105 MMOL/L (98-107) Carbon Dioxide Level 28 MMOL/L (21-32) Anion Gap 8 mmol/L (5-15) Blood Urea Nitrogen 28 mg/dL (7-18) H Creatinine 0.6 MG/DL (0.55-1.30) Estimat Glomerular Filtration Rate > 60 mL/min (>60) Glucose Level 97 MG/DL (74-106) Calcium Level 9.2 MG/DL (8.5-10.1) Total Bilirubin 5.8 MG/DL (0.2-1.0) H Direct Bilirubin 2.1 MG/DL (0.0-0.3) H Aspartate Amino Transf (AST/SGOT) 40 U/L (15-37) H Alanine Aminotransferase (ALT/SGPT) 42 U/L (12-78) Alkaline Phosphatase 499 U/L (46-116) H Total Protein 7.3 G/DL (6.4-8.2) Albumin 2.5 G/DL (3.4-5.0) L Globulin 4.8 g/dL Albumin/Globulin Ratio 0.5 (1.0-2.7) L Amylase Level 19 U/L (25-115) L Lipase 48 U/L (73-393) L Height (Feet): 5 Height (Inches): 5.00 Weight (Pounds): 188 Medications Current Medications Medications (Trade) Dose Ordered Sig/Vicenta Route PRN Reason Start Time Stop Time Status Last Admin Dose Admin Acetaminophen (Tylenol) 650 mg Q4H PRN ORAL fever 10/29/18 12:30 11/27/18 12:29 Acetaminophen (Tylenol) 650 mg Q4H PRN RECTAL Mild Pain (Pain Scale 1-3) 10/29/18 14:45 11/28/18 10:44 Amikacin Protocol (Amikacin pharmacy to dose) 1 ea DAILY PRN MISC Per rx protocol 10/29/18 19:30 11/28/18 19:29 Amikacin Sulfate 1000 mg/Sodium Chloride 114 ml @ 228 mls/hr Q24H IV 10/29/18 23:00 11/05/18 22:59 Cefepime HCl 1 gm/ Dextrose 55 ml @ 110 mls/hr EVERY 12 HOURS IVPB 10/29/18 21:00 11/05/18 20:59 Chlorhexidine Gluconate (Caitlyn-Hex 2%) 1 applic DAILY@2000 TOPIC 10/29/18 20:00 11/28/18 19:59 Dextrose (Dextrose 50%) 25 ml Q30M PRN IV Hypoglycemia 10/29/18 12:30 11/27/18 14:29 Dextrose (Dextrose 50%) 50 ml Q30M PRN IV Hypoglycemia 10/29/18 12:30 11/27/18 14:29 Dextrose/Sodium Chloride 1,000 ml @ 75 mls/hr [id number] IV 10/29/18 12:00 11/27/18 14:21 10/29/18 15:02 Diphenhydramine HCl (Benadryl) 25 mg Q6H PRN ORAL Itching/Pruritis 10/29/18 12:30 11/27/18 12:29 Gabapentin (Neurontin) 600 mg Q6HR GT 10/29/18 12:00 11/27/18 17:59 Heparin Sodium (Porcine) (Heparin 5000 units/ml) 5,000 units EVERY 12 HOURS SUBQ 10/29/18 21:00 11/27/18 20:59 Levetiracetam (Keppra) 500 mg TID GT 10/29/18 13:00 11/27/18 17:59 Levothyroxine Sodium (Synthroid) 125 mcg DAILY GT 10/30/18 09:00 11/28/18 08:59 Lorazepam (Ativan 2mg/ml 1ml) 1 mg Q4H PRN IV agitation 10/29/18 12:30 11/04/18 12:29 Metoclopramide HCl (Reglan) 10 mg Q6H PRN IVP severe nausea 10/29/18 12:30 11/27/18 12:29 Metronidazole 100 ml @ 100 mls/hr Q8HR IVPB 10/29/18 22:00 11/05/18 21:59 Morphine Sulfate (Morphine Sulfate) 2 mg Q4H PRN IVP severe Pain (Pain Scale 7-10) 10/29/18 12:30 11/04/18 12:29 Nitroglycerin (Ntg) 0.4 mg Q5M X 3 DOSES PRN SL Prn Chest Pain 10/29/18 12:00 11/27/18 14:29 Ondansetron HCl (Zofran) 4 mg Q6H PRN IVP Nausea & Vomiting 10/29/18 12:30 11/27/18 12:29 Pantoprazole (Protonix) 40 mg DAILY IV 10/30/18 09:00 11/28/18 08:59 Polyethylene Glycol (Miralax) 17 gm HSPRN PRN ORAL Constipation 10/29/18 14:30 11/27/18 14:29 Promethazine HCl (Phenergan) 25 mg Q6H PRN IM REFRACTORY N/V 10/29/18 12:30 11/27/18 12:29 Temazepam (Restoril) 15 mg HSPRN PRN ORAL Insomnia 10/29/18 12:30 11/04/18 12:29 Vancomycin HCl (Vanco rx to dose) 1 ea DAILY PRN MISC Per rx protocol 10/29/18 19:30 11/28/18 19:29 Vancomycin HCl/ Dextrose 275 ml @ 137.5 mls/ hr ONCE ONCE IVPB 10/29/18 21:00 10/29/18 22:59 Vancomycin HCl/ Dextrose 275 ml @ 183.333 mls/hr Q12HR IVPB 10/30/18 09:00 11/04/18 08:59 Assessment/Plan Assessment/Plan: Abx: IV Vancomycin 10/29- Cefepime 10/29- IV Amikacin 10/29- Flagyl 10/29- Assessment: Sepsis-?source- r/o UTI, bacteremia -CXR: Left hemidiaphragm is elevated but this appears stable. PICC line and tracheostomy noted. Cardiomegaly is stable. Bones are osteopenic. JT dislodgement and leakage w/ surrounding cellulitis paraplegia neurogenic bladder COPD GERD seizure disorder s/p trach dysphagia s/p J tube placement 10/22/18 [place] resident Plan: -Continue empiric IV Vancomycin and Cefepime #1 pending cultures -d/c empiric Amikacin #1 and Flagyl #1 -f/u cx -Monitor CBC/CMP, temperatures -trach/JT care -GI f/u -aspiration precautions Thank you for this consultation. Will continue to follow along with you. Discussed with OPAL. Kimi Ramos M.D. Oct 29, 2018 20:30
[2018-10-29] MEDS ORDERED: Vancomycin 1.5gm Premix IVPB ONE (21:00)
[2018-10-29] MEDS: Cefepime HCl 1 GM in D5W 55 ML IVPB SCH (21:14)
[2018-10-29] MEDS: Dyna-Hex 2% Top Sol 2oz TOPIC SCH (21:14)
--- NOTE | 2018-10-29 22:15 | History and Physical Report ---
DATE OF ADMISSION: 10/28/2018 CHIEF COMPLAINT: The patient is a 57-year-old male, who presents with a chief complaint of malfunctioning jejunostomy tube. HISTORY OF PRESENT ILLNESS: The patient was admitted to [facility] from October 23, 2018 to October 26, 2018. The patient was admitted for status epilepticus. Please see history and physical and discharge summary dictated at that time. According to staff at [facility], the patient is a resident of [facility]. According to staff at [facility], the patient began to have leaking G-tube. This occurred 1 day prior to admission. The patient was transferred to [facility]. The patient was admitted for malfunctioning of gastrostomy tube. REVIEW OF SYSTEMS: Unable to assess secondary to the patient's mental status. PAST MEDICAL HISTORY: Significant for: 1. Respiratory failure. 2. Trach collar in place. 3. Seizure disorder. 4. Chronic obstructive pulmonary disease. 5. Gastroesophageal reflux disease. 6. Neurogenic bladder. 7. Hypothyroidism. 8. Quadriplegia. 9. Tracheostomy. PAST SURGICAL HISTORY: Significant for: 1. Tracheostomy with trach collar in place. 2. G-tube placement. 3. Suprapubic catheter placement. CURRENT MEDICATIONS: 1. Tylenol 650 mg per G-tube q.4 hours p.r.n. 2. Vitamin C 500 mg per G-tube daily. 3. Aspirin 81 mg per G-tube daily. 4. Lipitor 10 mg per G-tube at bedtime. 5. Vitamin D3 1000 units per G-tube daily. 6. Famotidine 20 mg per G-tube twice daily. 7. Iron sulfate 325 mg per G-tube daily. 8. Gabapentin 600 mg per G-tube q.6 hours. 9. [place] 5/325 mg one tablet per G-tube q.6 h. p.r.n. 10. DuoNeb nebulized q.4 hours p.r.n. 11. Keppra 500 mg per G-tube 3 times daily. 12. Levothyroxine 0.125 mg per G-tube daily. 13. Magnesium hydroxide 30 mL per G-tube p.r.n. constipation. ALLERGIES: Sulfa drugs. SOCIAL HISTORY: The patient is single. The patient denies alcohol or tobacco use. PHYSICAL EXAMINATION: VITAL SIGNS: Temperature 97.7, respirations 18, pulse 79, and blood pressure 102/60. GENERAL: The patient is a well-developed and well-nourished white male, in no apparent distress. HEENT: Eyes, pupils are equal and responsive to light and accommodation. Extraocular movements are intact. NECK: Supple without lymphadenopathy. CHEST: Lungs are clear to auscultation bilaterally without wheezes or rales. CARDIOVASCULAR: Regular rhythm and rate. S1 and S2 are normal without murmurs, rubs, or gallops. ABDOMEN: Soft, nontender, and nondistended. Positive bowel sounds. No evidence of hepatosplenomegaly. Currently, no rebound or guarding noted. EXTREMITIES: Negative for clubbing, cyanosis, or edema. RECTAL/GENITAL: Not performed. NEUROLOGIC: Cranial nerves II through XII are grossly intact without focal deficits. Motor strength is 5/5 bilaterally. Deep tendon reflexes are 2+ plantar. LABORATORY STUDIES: WBC 8.3, hemoglobin 13.3, hematocrit 41.8, and platelets 71,000 sodium 141, potassium , chloride 105, CO2 27, BUN 33, creatinine 0.5, glucose 106. ASSESSMENT: This is a 57-year-old male. 1. Gastrostomy tube malfunction. 2. Respiratory failure. 3. Seizure disorder. 4. Chronic obstructive pulmonary disease. 5. Gastroesophageal reflux disease. 6. Neurogenic bladder. 7. Hypothyroidism. 8. Quadriplegia. 9. Tracheostomy in situ. TREATMENT: 1. Gastrostomy tube malfunction. A Gastroenterology consultation has been obtained with Dr. Kvng Lehman. The patient is scheduled for endoscopy with gastrostomy tube replacement on October 30, 2018. 2. Respiratory failure. A Pulmonary consultation has been obtained with Dr. Mellissa Garcia. Continue DuoNebs as above. 3. Seizure disorder. Continue Keppra and Neurontin as above. 4. Chronic obstructive pulmonary disease. As above, a Pulmonary consultation has been obtained with Dr. Mellissa Garcia. 5. Gastroesophageal reflux disease. Continue famotidine as above. 6. Neurogenic bladder. The patient is status post suprapubic catheter placement. 7. Hypothyroidism. Continue Levoxyl as above. 8. Quadriplegia. 9. Tracheostomy in situ. Isidro Mack Hernandez DR: SONIA JOB#: [id number] CC:
[2018-10-29] MEDS ORDERED: Amikacin 1,000 MG in NS 110 ML IV SCH (23:00)
[2018-10-30] VITALS: BP 126/79
[2018-10-30] MEDS: D5 1/2NS 1,000 ML IV SCH (02:03)
[2018-10-30 04:00] VITALS: BP 132/77
[2018-10-30] MEDS: Gabapentin 300 MG/6 ML Soln GT SCH ×4 (06:00→18:00)
--- NOTE | 2018-10-30 07:10 | NUR ---
NURSE NOTES: Received report from OPAL Masters. Patient in bed awake showing no signs of acute distress. Respiration even and non labored on room air. No sob noted. AOx1. Jtube noted to be leaking. Dressing intact. Suprapubic cath. on, patent, intact and draining. In addition, patient has condom cath with yellow urine intact and draining. Right UA PICC 2 lumen noted running D5 0.45 NS @ 75cc/hr, patent and intact. PICC dressing intact. HR elevated, showing MD FREDERICK aware. Call light within reach. Bed in lowest position, wheels locked and alarm on. Will continue plan of care.
--- NOTE | 2018-10-30 07:32 | NUR ---
HAND-OFF: Report given to OPAL Morales.
[2018-10-30 08:00] VITALS: BP 130/69
[2018-10-30] MEDS: Levothyroxine 125mcg tab GT SCH (08:09)
[2018-10-30] MEDS: levETIRAcetam 500mg/5ml Liquid GT SCH ×3 (08:09→18:00)
[2018-10-30] MEDS: Heparin 5000 units/ml inj SUBQ SCH ×2 (08:09→21:00)
[2018-10-30] MEDS: Cefepime HCl 1 GM in D5W 55 ML IVPB SCH ×2 (08:11→21:37)
--- NOTE | 2018-10-30 08:14 | Diagnostic Imaging Report ---
Indication: Reason For Exam: PREOP Technique: Single AP view of the chest. Comparison: Chest radiograph dated 10/23/2018 Findings: The cardiomediastinal silhouette is unchanged. Low lung volumes with elevation of the left hemidiaphragm. Streaky airspace disease in the left base likely represents atelectasis. Pneumo thorax. No pleural fluid. Cannulated tracheostomy in place. Interval placement of right approach PICC terminating in the cavoatrial junction. IMPRESSION: 1. Interval placement of right PICC terminating in cavoatrial junction. 2. Left basilar atelectasis.
--- NOTE | 2018-10-30 08:14 | Diagnostic Imaging Report ---
Indication: Abdominal pain. Technique: Color Doppler and grayscale images of the abdomen were obtained.. Comparison: Abdominal ultrasound dated 10/22/2017 Findings: Liver: Liver demonstrates nodular contour, which can be seen with cirrhosis. Echotexture is coarsened. Gallbladder: Cholelithiasis. The gallbladder wall is mildly thickened. There is no sonographic Jarrett sign. No pericholecystic fluid. Common bile duct: Normal in size, measuring 4 mm. Pancreas: Incompletely evaluated Kidneys: The left kidney is unremarkable. There is moderate right hydronephrosis. Spleen: The spleen is mildly enlarged. Aorta: The aorta is incompletely evaluated. Impression: 1. Cholelithiasis and gallbladder wall thickening which, in the absence of sonographic Jarrett sign, is equivocal for acute cholecystitis. Clinical correlation is recommended. 2. Moderate right hydronephrosis without definite nephrolithiasis. Consider distal ureteral obstruction. 3. Sonographic findings suggestive of cirrhosis. 4. Mild splenomegaly
[2018-10-30 08:51] LABS: ANION GAP 9 mmol/L (5-15); BLOOD UREA NITROGEN 17 mg/dL (7-18); CALCIUM 9.1 MG/DL (8.5-10.1); CARBON DIOXIDE 29 MMOL/L (21-32); CHLORIDE 104 MMOL/L (98-107); CREATININE 0.6 MG/DL (0.55-1.30); SODIUM 141 MMOL/L (136-145)
[2018-10-30 08:56] LABS: BASOPHILS % (AUTO) 2.1 % (0.0-2.0); EOSINOPHILS % (AUTO) 0.7 % (0.0-3.0); HEMOGLOBIN 12.9 G/DL (14.2-18.0); LYMPHOCYTES % (AUTO) 8.8 % (20.0-45.0); MEAN CORPUSCULAR VOLUME 90 FL (80-99); MONOCYTES % (AUTO) 15.7 % (1.0-10.0); NEUTROPHILS % (AUTO) 72.8 % (45.0-75.0); PLATELET COUNT 117 K/UL (150-450); RED BLOOD COUNT 4.54 M/UL (4.70-6.10); RED CELL DISTRIBUTION WIDTH 19.4 % (11.6-14.8); WHITE BLOOD COUNT 6.6 K/UL (4.8-10.8)
[2018-10-30 08:58] LABS: POTASSIUM 2.2 MMOL/L (3.5-5.1)
[2018-10-30] MEDS: Vancomycin 1.25gm Premix IVPB SCH ×2 (09:17→21:36)
[2018-10-30] MEDS: Pantoprazole Inj IV SCH (09:17)
--- NOTE | 2018-10-30 10:05 | Infectious Diseases Prog Note ---
Assessment/Plan Assessment/Plan Abx: IV Vancomycin 10/29- Cefepime 10/29- Assessment: Sepsis-?source- r/o UTI, bacteremia -CXR: Left hemidiaphragm is elevated but this appears stable. PICC line and tracheostomy noted. Cardiomegaly is stable. Bones are osteopenic. JT dislodgement and leakage w/ surrounding cellulitis paraplegia neurogenic bladder COPD GERD seizure disorder s/p trach dysphagia s/p J tube placement 10/22/18 [place] resident Plan: -Continue empiric IV Vancomycin and Cefepime #2 pending cultures -10/29 SP Amikacin #1 and Flagyl #1 -f/u cx -Monitor CBC/CMP, temperatures -trach/JT care -GI f/u -aspiration precautions -f/u u/a, Bcx Thank you for this consultation. Will continue to follow along with you. Discussed with RN. Subjective Allergies: Coded Allergies: SULFAMETHOXAZOLE (Verified Allergy, Unknown, 10/18/17) TRIMETHOPRIM (Verified Allergy, Unknown, 10/18/17) Objective Vital Signs Last 24 Hour Vital Signs Date Time Temp Pulse Resp B/P (MAP) Pulse Ox O2 Delivery O2 Flow Rate FiO2 10/30/18 08:00 98.6 83 20 130/69 (89) 94 10/30/18 04:00 137 10/30/18 04:00 97.4 116 19 132/77 (95) 97 10/30/18 00:00 120 10/30/18 00:00 98.4 125 18 126/79 (95) 97 10/29/18 21:00 Room Air 10/29/18 20:00 99.8 125 19 122/80 (94) 94 10/29/18 16:00 98.6 126 20 102/69 (80) 95 10/29/18 15:41 122 10/29/18 15:27 122 10/29/18 12:00 100.3 134 20 93/60 (71) 98 10/29/18 11:44 135 Height (Feet): 5 Height (Inches): 5.00 Weight (Pounds): 188 Microbiology Date/Time Source Procedure Growth Status 10/28/18 13:40 Rectum VRE Culture - Final Enterococcus Faecalis - Vre Complete 10/28/18 13:40 Rectum - Final NO CARBAPENEM-RESISTANT ENTEROBACTERI... Complete Laboratory Tests Test 10/30/18 08:08 White Blood Count 6.6 K/UL (4.8-10.8) Red Blood Count 4.54 M/UL (4.70-6.10) L Hemoglobin 12.9 G/DL (14.2-18.0) L Hematocrit 41.0 % (42.0-52.0) L Mean Corpuscular Volume 90 FL (80-99) Mean Corpuscular Hemoglobin 28.5 PG (27.0-31.0) Mean Corpuscular Hemoglobin Concent 31.6 G/DL (32.0-36.0) L Red Cell Distribution Width 19.4 % (11.6-14.8) H Platelet Count 117 K/UL (150-450) L Mean Platelet Volume 6.3 FL (6.5-10.1) L Neutrophils (%) (Auto) 72.8 % (45.0-75.0) Lymphocytes (%) (Auto) 8.8 % (20.0-45.0) L Monocytes (%) (Auto) 15.7 % (1.0-10.0) H Eosinophils (%) (Auto) 0.7 % (0.0-3.0) Basophils (%) (Auto) 2.1 % (0.0-2.0) H Sodium Level 141 MMOL/L (136-145) Potassium Level 2.2 MMOL/L (3.5-5.1) *L Chloride Level 104 MMOL/L (98-107) Carbon Dioxide Level 29 MMOL/L (21-32) Anion Gap 9 mmol/L (5-15) Blood Urea Nitrogen 17 mg/dL (7-18) Creatinine 0.6 MG/DL (0.55-1.30) Estimat Glomerular Filtration Rate > 60 mL/min (>60) Glucose Level 118 MG/DL (74-106) H Calcium Level 9.1 MG/DL (8.5-10.1) Current Medications Medications (Trade) Dose Ordered Sig/Vicenta Route PRN Reason Start Time Stop Time Status Last Admin Dose Admin Acetaminophen (Tylenol) 650 mg Q4H PRN ORAL fever 10/29/18 12:30 11/27/18 12:29 Acetaminophen (Tylenol) 650 mg Q4H PRN RECTAL Mild Pain (Pain Scale 1-3) 10/29/18 14:45 11/28/18 10:44 Cefepime HCl 1 gm/ Dextrose 55 ml @ 110 mls/hr EVERY 12 HOURS IVPB 10/29/18 21:00 11/05/18 20:59 10/30/18 08:11 Chlorhexidine Gluconate (Caitlyn-Hex 2%) 1 applic DAILY@2000 TOPIC 10/29/18 20:00 11/28/18 19:59 10/29/18 21:14 Dextrose (Dextrose 50%) 25 ml Q30M PRN IV Hypoglycemia 10/29/18 12:30 11/27/18 14:29 Dextrose (Dextrose 50%) 50 ml Q30M PRN IV Hypoglycemia 10/29/18 12:30 11/27/18 14:29 Dextrose/Sodium Chloride 1,000 ml @ 75 mls/hr [id number] IV 10/29/18 12:00 11/27/18 14:21 10/30/18 02:03 Diphenhydramine HCl (Benadryl) 25 mg Q6H PRN ORAL Itching/Pruritis 10/29/18 12:30 11/27/18 12:29 Gabapentin (Neurontin) 600 mg Q6HR GT 10/29/18 12:00 11/27/18 17:59 Heparin Sodium (Porcine) (Heparin 5000 units/ml) 5,000 units EVERY 12 HOURS SUBQ 10/29/18 21:00 11/27/18 20:59 Levetiracetam (Keppra) 500 mg TID GT 10/29/18 13:00 11/27/18 17:59 Levothyroxine Sodium (Synthroid) 125 mcg DAILY GT 10/30/18 09:00 11/28/18 08:59 Lorazepam (Ativan 2mg/ml 1ml) 1 mg Q4H PRN IV agitation 10/29/18 12:30 11/04/18 12:29 Metoclopramide HCl (Reglan) 10 mg Q6H PRN IVP severe nausea 10/29/18 12:30 11/27/18 12:29 Morphine Sulfate (Morphine Sulfate) 2 mg Q4H PRN IVP severe Pain (Pain Scale 7-10) 10/29/18 12:30 11/04/18 12:29 Nitroglycerin (Ntg) 0.4 mg Q5M X 3 DOSES PRN SL Prn Chest Pain 10/29/18 12:00 11/27/18 14:29 Ondansetron HCl (Zofran) 4 mg Q6H PRN IVP Nausea & Vomiting 10/29/18 12:30 11/27/18 12:29 Pantoprazole (Protonix) 40 mg DAILY IV 10/30/18 09:00 11/28/18 08:59 10/30/18 09:17 Polyethylene Glycol (Miralax) 17 gm HSPRN PRN ORAL Constipation 10/29/18 14:30 11/27/18 14:29 Potassium Chloride 100 ml @ 50 mls/hr Q2H IVPB 10/30/18 10:00 10/30/18 13:59 Promethazine HCl (Phenergan) 25 mg Q6H PRN IM REFRACTORY N/V 10/29/18 12:30 11/27/18 12:29 Temazepam (Restoril) 15 mg HSPRN PRN ORAL Insomnia 10/29/18 12:30 11/04/18 12:29 Vancomycin HCl (Vanco rx to dose) 1 ea DAILY PRN MISC Per rx protocol 10/29/18 19:30 11/28/18 19:29 Vancomycin HCl/ Dextrose 275 ml @ 183.333 mls/hr Q12HR IVPB 10/30/18 09:00 11/04/18 08:59 10/30/18 09:17 Kimi Ramos M.D. Oct 30, 2018 10:05
[2018-10-30] MEDS ORDERED: Tubing IV Secondary IV ONE (10:47)
[2018-10-30] MEDS ORDERED: NS 275ml ONE (10:47)
[2018-10-30] MEDS ORDERED: D5 1/2NS 1000ml IV ONE (10:47)
--- NOTE | 2018-10-30 11:03 | GI Progress Note ---
Assessment/Plan Problems: (1) Malfunction of jejunostomy tube ICD Codes: K94.13 - Enterostomy malfunction SNOMED: 895338525, [id number] (2) Hypokalemia ICD Codes: E87.6 - Hypokalemia SNOMED: 23127792 Status: unchanged Status Narrative Discussed with Dr. Lehman. Assessment/Plan Plan for J-tube versus GJ tube replacement, procedure postponed due to hypokalemia. Maintain n.p.o. plus IV fluids Obtain abdominal ultrasound given elevated LFTs Monitor H&H, PRN transfusions PPI Electrolyte correction We will follow with additional recommendations post procedure The patient was seen and examined at bedside and all new and available data was reviewed in the patients chart. I agree with the above findings, impression and plan. (Patient seen earlier today. Signature stamp does not reflect patient encounter time.). - Kvng Lehman MD Subjective Subjective limited Objective Last 24 Hour Vital Signs Date Time Temp Pulse Resp B/P (MAP) Pulse Ox O2 Delivery O2 Flow Rate FiO2 10/30/18 08:00 98.6 83 20 130/69 (89) 94 10/30/18 04:00 137 10/30/18 04:00 97.4 116 19 132/77 (95) 97 10/30/18 00:00 120 10/30/18 00:00 98.4 125 18 126/79 (95) 97 10/29/18 21:00 Room Air 10/29/18 20:00 99.8 125 19 122/80 (94) 94 10/29/18 16:00 98.6 126 20 102/69 (80) 95 10/29/18 15:41 122 10/29/18 15:27 122 10/29/18 12:00 100.3 134 20 93/60 (71) 98 10/29/18 11:44 135 Intake and Output 10/29/18 10/30/18 19:00 07:00 Intake Total 525 ml 221.25 ml Output Total 750 ml 1200 ml Balance -225 ml -978.75 ml IV Total 525 ml 221.25 ml Output Urine Total 750 ml 1200 ml Laboratory Tests Test 10/30/18 08:08 White Blood Count 6.6 K/UL (4.8-10.8) Red Blood Count 4.54 M/UL (4.70-6.10) L Hemoglobin 12.9 G/DL (14.2-18.0) L Hematocrit 41.0 % (42.0-52.0) L Mean Corpuscular Volume 90 FL (80-99) Mean Corpuscular Hemoglobin 28.5 PG (27.0-31.0) Mean Corpuscular Hemoglobin Concent 31.6 G/DL (32.0-36.0) L Red Cell Distribution Width 19.4 % (11.6-14.8) H Platelet Count 117 K/UL (150-450) L Mean Platelet Volume 6.3 FL (6.5-10.1) L Neutrophils (%) (Auto) 72.8 % (45.0-75.0) Lymphocytes (%) (Auto) 8.8 % (20.0-45.0) L Monocytes (%) (Auto) 15.7 % (1.0-10.0) H Eosinophils (%) (Auto) 0.7 % (0.0-3.0) Basophils (%) (Auto) 2.1 % (0.0-2.0) H Sodium Level 141 MMOL/L (136-145) Potassium Level 2.2 MMOL/L (3.5-5.1) *L Chloride Level 104 MMOL/L (98-107) Carbon Dioxide Level 29 MMOL/L (21-32) Anion Gap 9 mmol/L (5-15) Blood Urea Nitrogen 17 mg/dL (7-18) Creatinine 0.6 MG/DL (0.55-1.30) Estimat Glomerular Filtration Rate > 60 mL/min (>60) Glucose Level 118 MG/DL (74-106) H Calcium Level 9.1 MG/DL (8.5-10.1) Height (Feet): 5 Height (Inches): 5.00 Weight (Pounds): 188 General Appearance: WD/WN, no apparent distress, alert Cardiovascular: normal rate Respiratory/Chest: normal breath sounds, no respiratory distress Abdominal Exam: normal bowel sounds, non tender, soft Extremities: normal range of motion, non-tender Daisy Bernstein NP Oct 30, 2018 11:03
[2018-10-30 12:00] VITALS: BP 135/87
--- NOTE | 2018-10-30 12:36 | Pulmonology Progress Note ---
Assessment/Plan Problems: (1) Seizures (2) Sepsis (3) Chronic respiratory failure (4) Malfunction of gastrostomy tube Assessment/Plan still tachy hydronephrosis tachycardia most likely secondary to sepsis ID consult called. GI f/u KUB ordered stat Subjective ROS Limited/Unobtainable: No Constitutional: Reports: no symptoms HEENT: Repors: no symptoms Respiratory: Reports: no symptoms Allergies: Coded Allergies: SULFAMETHOXAZOLE (Verified Allergy, Unknown, 10/18/17) TRIMETHOPRIM (Verified Allergy, Unknown, 10/18/17) Objective Last 24 Hour Vital Signs Date Time Temp Pulse Resp B/P (MAP) Pulse Ox O2 Delivery O2 Flow Rate FiO2 10/30/18 11:37 114 10/30/18 09:00 Room Air 10/30/18 08:00 98.6 83 20 130/69 (89) 94 10/30/18 04:00 137 10/30/18 04:00 97.4 116 19 132/77 (95) 97 10/30/18 00:00 120 10/30/18 00:00 98.4 125 18 126/79 (95) 97 10/29/18 21:00 Room Air 10/29/18 20:00 99.8 125 19 122/80 (94) 94 10/29/18 16:00 98.6 126 20 102/69 (80) 95 10/29/18 15:41 122 10/29/18 15:27 122 Intake and Output 10/29/18 10/30/18 19:00 07:00 Intake Total 525 ml 221.25 ml Output Total 750 ml 1200 ml Balance -225 ml -978.75 ml IV Total 525 ml 221.25 ml Output Urine Total 750 ml 1200 ml General Appearance: WD/WN HEENT: normocephalic, atraumatic Respiratory/Chest: chest wall non-tender, lungs clear Cardiovascular: normal peripheral pulses, regular rhythm Abdomen: normal bowel sounds, soft, non tender Genitourinary: normal external genitalia Extremities: no clubbing Neurologic/Psychiatric: core manager II-XII grossly normal Microbiology Date/Time Source Procedure Growth Status 10/28/18 13:40 Nasal Nares Left MRSA Culture - Final NO METHICILLIN RESISTANT STAPH AUREUS... Complete 10/28/18 13:40 Rectum VRE Culture - Final Enterococcus Faecalis - Vre Complete 10/28/18 13:40 Rectum - Final NO CARBAPENEM-RESISTANT ENTEROBACTERI... Complete Laboratory Tests 10/30/18 08:08: White Blood Count 6.6, Red Blood Count 4.54L, Hemoglobin 12.9L, Hematocrit 41.0L , Mean Corpuscular Volume 90, Mean Corpuscular Hemoglobin 28.5, Mean Corpuscular Hemoglobin Concent 31.6L, Red Cell Distribution Width 19.4H, Platelet Count 117L, Mean Platelet Volume 6.3L, Neutrophils (%) (Auto) 72.8, Lymphocytes (%) (Auto) 8.8L, Monocytes (%) (Auto) 15.7H, Eosinophils (%) (Auto) 0.7, Basophils (%) (Auto) 2.1H, Sodium Level 141, Potassium Level 2.2*L, Chloride Level 104, Carbon Dioxide Level 29, Anion Gap 9, Blood Urea Nitrogen 17 , Creatinine 0.6, Estimat Glomerular Filtration Rate > 60, Glucose Level 118H, Calcium Level 9.1 Current Medications Medications (Trade) Dose Ordered Sig/Vicenta Route PRN Reason Start Time Stop Time Status Last Admin Dose Admin Acetaminophen (Tylenol) 650 mg Q4H PRN ORAL fever 10/29/18 12:30 11/27/18 12:29 Acetaminophen (Tylenol) 650 mg Q4H PRN RECTAL Mild Pain (Pain Scale 1-3) 10/29/18 14:45 11/28/18 10:44 Cefepime HCl 1 gm/ Dextrose 55 ml @ 110 mls/hr EVERY 12 HOURS IVPB 10/29/18 21:00 11/05/18 20:59 10/30/18 08:11 Chlorhexidine Gluconate (Caitlyn-Hex 2%) 1 applic DAILY@2000 TOPIC 10/29/18 20:00 11/28/18 19:59 10/29/18 21:14 Dextrose (Dextrose 50%) 25 ml Q30M PRN IV Hypoglycemia 10/29/18 12:30 11/27/18 14:29 Dextrose (Dextrose 50%) 50 ml Q30M PRN IV Hypoglycemia 10/29/18 12:30 11/27/18 14:29 Dextrose/Sodium Chloride 1,000 ml @ 75 mls/hr [id number] IV 10/29/18 12:00 11/27/18 14:21 10/30/18 02:03 Diphenhydramine HCl (Benadryl) 25 mg Q6H PRN ORAL Itching/Pruritis 10/29/18 12:30 11/27/18 12:29 Gabapentin (Neurontin) 600 mg Q6HR GT 10/29/18 12:00 11/27/18 17:59 Heparin Sodium (Porcine) (Heparin 5000 units/ml) 5,000 units EVERY 12 HOURS SUBQ 10/29/18 21:00 11/27/18 20:59 Levetiracetam (Keppra) 500 mg TID GT 10/29/18 13:00 11/27/18 17:59 Levothyroxine Sodium (Synthroid) 125 mcg DAILY GT 10/30/18 09:00 11/28/18 08:59 Lorazepam (Ativan 2mg/ml 1ml) 1 mg Q4H PRN IV agitation 10/29/18 12:30 11/04/18 12:29 Metoclopramide HCl (Reglan) 10 mg Q6H PRN IVP severe nausea 10/29/18 12:30 11/27/18 12:29 Morphine Sulfate (Morphine Sulfate) 2 mg Q4H PRN IVP severe Pain (Pain Scale 7-10) 10/29/18 12:30 11/04/18 12:29 Nitroglycerin (Ntg) 0.4 mg Q5M X 3 DOSES PRN SL Prn Chest Pain 10/29/18 12:00 11/27/18 14:29 Ondansetron HCl (Zofran) 4 mg Q6H PRN IVP Nausea & Vomiting 10/29/18 12:30 11/27/18 12:29 Pantoprazole (Protonix) 40 mg DAILY IV 10/30/18 09:00 11/28/18 08:59 10/30/18 09:17 Polyethylene Glycol (Miralax) 17 gm HSPRN PRN ORAL Constipation 10/29/18 14:30 11/27/18 14:29 Potassium Chloride 100 ml @ 50 mls/hr Q2H IVPB 10/30/18 10:00 10/30/18 13:59 10/30/18 10:14 Promethazine HCl (Phenergan) 25 mg Q6H PRN IM REFRACTORY N/V 10/29/18 12:30 11/27/18 12:29 Temazepam (Restoril) 15 mg HSPRN PRN ORAL Insomnia 10/29/18 12:30 11/04/18 12:29 Vancomycin HCl (Vanco rx to dose) 1 ea DAILY PRN MISC Per rx protocol 10/29/18 19:30 11/28/18 19:29 Vancomycin HCl/ Dextrose 275 ml @ 183.333 mls/hr Q12HR IVPB 10/30/18 09:00 11/04/18 08:59 10/30/18 09:17 Mellissa Garcia MD Oct 30, 2018 12:36
--- NOTE | 2018-10-30 12:57 | NUR ---
Social Work This Sw received a consult due to end of life concerns. This SW spoke with sister in law, Elsie Piper, decision maker for patient (who explains she is also an RN) regarding the recommendations from Dr. Garcia, regarding code status and plan of care to be determined (treatment vs comfort measures). Sister aware pending feeding tube replacement along with patient has Trach, quad, requires 24 hour care, from SNF. Family expressing understanding regarding the need to possible change patients code status to DNR/DNR, but stating she wants to think about this further, then will make a decision. At this time, sister ginny lau is requesting full code, full treatment. SW to follow to determine end of life decision making with family. MD to follow, as needed to address family questions or concerns. Addendum: 10/30/18 at 1309 by ILANA DOE sister Zimmerman in law contact number: [phone]
--- NOTE | 2018-10-30 14:28 | Diagnostic Imaging Report ---
Indication: Abdominal pain Technique: XRAY Abdomen 1v Comparison: 10/19/2018 FINDINGS/IMPRESSION: Interval removal of nasogastric tube. An enteric tube projects over the left lower abdomen. This may represent a jejunostomy tube. Correlate for history of such tube placement. Bowel gas pattern is nonspecific. No gaseous distention of small bowel loops to suggest small bowel obstruction. Dense stool is noted within the rectum suggesting a degree of rectal fecal impaction. Dietrich catheter is noted. There are multilevel degenerative changes of the spine. No acute osseous abnormality.
--- NOTE | 2018-10-30 14:38 | Internal Med Progress Note ---
Subjective Physician Name Bruno Ko Attending Physician Bruno Ko MD Current Medications Medications (Trade) Dose Ordered Sig/Vicenta Route PRN Reason Start Time Stop Time Status Last Admin Dose Admin Acetaminophen (Tylenol) 650 mg Q4H PRN ORAL fever 10/29/18 12:30 11/27/18 12:29 Acetaminophen (Tylenol) 650 mg Q4H PRN RECTAL Mild Pain (Pain Scale 1-3) 10/29/18 14:45 11/28/18 10:44 Cefepime HCl 1 gm/ Dextrose 55 ml @ 110 mls/hr EVERY 12 HOURS IVPB 10/29/18 21:00 11/05/18 20:59 10/30/18 08:11 Chlorhexidine Gluconate (Caitlyn-Hex 2%) 1 applic DAILY@2000 TOPIC 10/29/18 20:00 11/28/18 19:59 10/29/18 21:14 Dextrose (Dextrose 50%) 25 ml Q30M PRN IV Hypoglycemia 10/29/18 12:30 11/27/18 14:29 Dextrose (Dextrose 50%) 50 ml Q30M PRN IV Hypoglycemia 10/29/18 12:30 11/27/18 14:29 Dextrose/Sodium Chloride 1,000 ml @ 75 mls/hr [id number] IV 10/29/18 12:00 11/27/18 14:21 10/30/18 02:03 Diphenhydramine HCl (Benadryl) 25 mg Q6H PRN ORAL Itching/Pruritis 10/29/18 12:30 11/27/18 12:29 Gabapentin (Neurontin) 600 mg Q6HR GT 10/29/18 12:00 11/27/18 17:59 Heparin Sodium (Porcine) (Heparin 5000 units/ml) 5,000 units EVERY 12 HOURS SUBQ 10/29/18 21:00 11/27/18 20:59 Levetiracetam (Keppra) 500 mg TID GT 10/29/18 13:00 11/27/18 17:59 Levothyroxine Sodium (Synthroid) 125 mcg DAILY GT 10/30/18 09:00 11/28/18 08:59 Lorazepam (Ativan 2mg/ml 1ml) 1 mg Q4H PRN IV agitation 10/29/18 12:30 11/04/18 12:29 Metoclopramide HCl (Reglan) 10 mg Q6H PRN IVP severe nausea 10/29/18 12:30 11/27/18 12:29 Morphine Sulfate (Morphine Sulfate) 2 mg Q4H PRN IVP severe Pain (Pain Scale 7-10) 10/29/18 12:30 11/04/18 12:29 Nitroglycerin (Ntg) 0.4 mg Q5M X 3 DOSES PRN SL Prn Chest Pain 10/29/18 12:00 11/27/18 14:29 Ondansetron HCl (Zofran) 4 mg Q6H PRN IVP Nausea & Vomiting 10/29/18 12:30 11/27/18 12:29 Pantoprazole (Protonix) 40 mg DAILY IV 10/30/18 09:00 11/28/18 08:59 10/30/18 09:17 Polyethylene Glycol (Miralax) 17 gm HSPRN PRN ORAL Constipation 10/29/18 14:30 11/27/18 14:29 Promethazine HCl (Phenergan) 25 mg Q6H PRN IM REFRACTORY N/V 10/29/18 12:30 11/27/18 12:29 Temazepam (Restoril) 15 mg HSPRN PRN ORAL Insomnia 10/29/18 12:30 11/04/18 12:29 Vancomycin HCl (Vanco rx to dose) 1 ea DAILY PRN MISC Per rx protocol 10/29/18 19:30 11/28/18 19:29 Vancomycin HCl/ Dextrose 275 ml @ 183.333 mls/hr Q12HR IVPB 10/30/18 09:00 11/04/18 08:59 10/30/18 09:17 Allergies: Coded Allergies: SULFAMETHOXAZOLE (Verified Allergy, Unknown, 10/18/17) TRIMETHOPRIM (Verified Allergy, Unknown, 10/18/17) Subjective awake, responsive, on trach collar Objective Last Vital Signs Date Time Temp Pulse Resp B/P (MAP) Pulse Ox O2 Delivery O2 Flow Rate FiO2 10/30/18 12:00 98.9 57 18 135/87 (103) 94 10/30/18 09:00 Room Air Laboratory Tests Test 10/30/18 08:08 White Blood Count 6.6 K/UL (4.8-10.8) Red Blood Count 4.54 M/UL (4.70-6.10) L Hemoglobin 12.9 G/DL (14.2-18.0) L Hematocrit 41.0 % (42.0-52.0) L Mean Corpuscular Volume 90 FL (80-99) Mean Corpuscular Hemoglobin 28.5 PG (27.0-31.0) Mean Corpuscular Hemoglobin Concent 31.6 G/DL (32.0-36.0) L Red Cell Distribution Width 19.4 % (11.6-14.8) H Platelet Count 117 K/UL (150-450) L Mean Platelet Volume 6.3 FL (6.5-10.1) L Neutrophils (%) (Auto) 72.8 % (45.0-75.0) Lymphocytes (%) (Auto) 8.8 % (20.0-45.0) L Monocytes (%) (Auto) 15.7 % (1.0-10.0) H Eosinophils (%) (Auto) 0.7 % (0.0-3.0) Basophils (%) (Auto) 2.1 % (0.0-2.0) H Sodium Level 141 MMOL/L (136-145) Potassium Level 2.2 MMOL/L (3.5-5.1) *L Chloride Level 104 MMOL/L (98-107) Carbon Dioxide Level 29 MMOL/L (21-32) Anion Gap 9 mmol/L (5-15) Blood Urea Nitrogen 17 mg/dL (7-18) Creatinine 0.6 MG/DL (0.55-1.30) Estimat Glomerular Filtration Rate > 60 mL/min (>60) Glucose Level 118 MG/DL (74-106) H Calcium Level 9.1 MG/DL (8.5-10.1) Microbiology Date/Time Source Procedure Growth Status 10/28/18 13:40 Nasal Nares Left MRSA Culture - Final NO METHICILLIN RESISTANT STAPH AUREUS... Complete 10/28/18 13:40 Rectum VRE Culture - Final Enterococcus Faecalis - Vre Complete 10/28/18 13:40 Rectum - Final NO CARBAPENEM-RESISTANT ENTEROBACTERI... Complete Intake and Output 10/29/18 10/30/18 19:00 07:00 Intake Total 525 ml 221.25 ml Output Total 750 ml 1200 ml Balance -225 ml -978.75 ml IV Total 525 ml 221.25 ml Output Urine Total 750 ml 1200 ml Objective General: No acute distress, awake and responsive HEENT: NCAT, sclera anicteric, PERRL, EOMI. Neck: Supple,trach site intact and capped. Lungs: fair inspiratory effort,decrease air at bases, no Wheeze or Rales. Heart: Regular rate and rhythm, normal S1/S2, no murmurs Abdomen: soft, nontender, nondistended. Normoactive bowel sounds. morbid obesity , GJ tube side wet dressing and leaks, suprapubic cath intact. Extremities: No Cyanosis , clubbing or edema. Neuro: A&O x 2, Able to move lower extremities slowly, contracted extremities. Skin: warm, no rash. Assessment/Plan Assessment/Plan 1. JG tube malfunction and leaks. 2. Respiratory failure. 3. Seizure disorder. 4. Chronic obstructive pulmonary disease. 5. Gastroesophageal reflux disease. 6. Neurogenic bladder. 7. Hypothyroidism. 8. Quadriplegia. 9. Tracheostomy in situ. 10.Thrombocytopenia. Plan: F/U with GI recommendations IVF Monitor labs. Bruno Ko MD Oct 30, 2018 14:37
--- NOTE | 2018-10-30 15:14 | NUR ---
NURSE NOTES: Dressing change for abdomen was completed. Noted leaking on g-tube. Redness surrounded the site. Patient's states discomfort around site. Rinse with saline and abdominal pad was changed with paper tape. Notified PETAR Singleton. Received order for ct/abd and dressing change twice a day and PRN. Addendum: 10/30/18 at 1919 by Andrew Yancey RN Noted G/tube was out.
[2018-10-30] MEDS ORDERED: Isovue-300 100ml vial INJ PRN (15:15)
[2018-10-30 16:00] VITALS: BP 121/83
--- NOTE | 2018-10-30 16:05 | NUR ---
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
--- NOTE | 2018-10-30 17:47 | Diagnostic Imaging Report ---
EXAM: CT Abdomen and Pelvis Without Intravenous Contrast CLINICAL HISTORY: ABD DIST TECHNIQUE: Axial computed tomography images of the abdomen and pelvis without intravenous contrast. CTDI is 0.15, 18.84 mGy and DLP is 10:15 mGy-cm. One or more of the following dose reduction techniques were used: automated exposure control, adjustment of the mA and/or kV according to patient size, use of iterative reconstruction technique. COMPARISON: No relevant prior studies available. FINDINGS: Lung bases: Bilateral dependent densities are compatible with atelectasis. ABDOMEN: Liver: Nodular hepatic contour. Gallbladder and bile ducts: Cholelithiasis. Pancreas: Unremarkable. Spleen: Unremarkable. Adrenals: Unremarkable. Kidneys and ureters: Moderate bilateral hydroureteronephrosis. Subcentimeter bilateral renal calculi, including layering calculi in bilateral renal pelves. Stomach and bowel: The decompressed gastric antrum appears tethered to the anterior abdominal wall. Moderate stool in the rectosigmoid colon. Small bowel is nondilated. PELVIS: Appendix: No findings to suggest acute appendicitis. Bladder: A suprapubic catheter is present in the thickened urinary bladder. Reproductive: Prostatectomy. ABDOMEN and PELVIS: Intraperitoneal space: Unremarkable. No free air. Bones/joints: No acute osseous abnormality. Scoliosis and degenerative changes of the spine. Soft tissues: Diastases of the rectus musculature. Vasculature: Unremarkable. No abdominal aortic aneurysm. Lymph nodes: Unremarkable. IMPRESSION: Thickening of the underdistended urinary bladder is concerning for cystitis. Consider correlation with urinalysis. Moderate bilateral hydroureteronephrosis. Moderate stool in the rectosigmoid colon is suggestive of constipation. Morphologic features of cirrhosis. Cholelithiasis.
--- NOTE | 2018-10-30 19:15 | NUR ---
HAND-OFF: Report given to OPAL Vargas. Endorsed about g-tube is out and wound dressing changed.
--- NOTE | 2018-10-30 19:46 | NUR ---
NURSE NOTES: Received pt from OPAL Morales. Pt awake, alert, and talkative. Bed in lowest position. Call light within reach. Will continue to monitor.
[2018-10-30 20:00] VITALS: BP 124/83
[2018-10-30] MEDS: Dyna-Hex 2% Top Sol 2oz TOPIC SCH (21:35)
--- NOTE | 2018-10-30 23:00 | Consultation ---
DATE OF CONSULTATION: 10/30/2018 CONSULTING PHYSICIAN: Ascencion Palomino M.D. REFERRING PHYSICIAN: Mellissa Garcia M.D. REASON FOR CONSULTATION: Evaluation of hydronephrosis. HISTORY OF PRESENT ILLNESS: This is a 57-year-old male who is a resident of long-term. He is mostly in a vegetative state. He has a chronic suprapubic tube for neurogenic bladder. The suprapubic tube was last changed six days ago. He was readmitted to the hospital because of malfunction of his G-tube. There was hydronephrosis noted on imaging. Urology evaluation is requested. There is no known history of flank pain. Most of the history was obtained from the chart. PAST MEDICAL HISTORY: Respiratory failure, seizure disorder, COPD, neurogenic bladder, hypothyroidism, and quadriplegic. PAST SURGICAL HISTORY: Suprapubic tube, other surgeries are unknown. MEDICATIONS: List was reviewed. ALLERGIES: Reviewed. PHYSICAL EXAMINATION: VITAL SIGNS: Temperature is 98.1. GENITOURINARY: SP tube is in place, 18-Egyptian. Urine is yellowish with some debris. He does have some drainage through the penis. LABORATORY DATA: Shows a white count of 6.6, hemoglobin 12.9. BUN 17, creatinine 0.6, and potassium 3.2. No urinalysis on record. DIAGNOSTIC AND IMAGING STUDIES: The patient had an abdominal ultrasound two days ago, which showed evidence of moderate right-sided hydronephrosis. He subsequently had a CT scan that showed evidence of thickening of the bladder, possible cystitis. There was also mention of moderate bilateral hydronephrosis. There was also mention of renal calculi. IMPRESSION: 1. Urinary retention with chronic suprapubic tube. 2. Neurogenic bladder. 3. Hydronephrosis, which appears to be chronic. 4. Nephrolithiasis. 5. Cystitis. PLAN AND DISCUSSION: The patient again does have hydronephrosis, which appears to be chronic. His renal function is stable with no flank pain. This can be monitored for now. He has nonobstructing stones that can be monitored. He has findings consistent with the cystitis. He is on antibiotics and we will consider a urine culture. Suprapubic tube has been changed recently and is due to be changed in near future. Ascencion Palomino M.D. DR: GUME JOB#: [id number] CC:
[2018-10-31] VITALS: BP 125/86
[2018-10-31 04:00] VITALS: BP 139/68
[2018-10-31] MEDS: Gabapentin 300 MG/6 ML Soln GT SCH ×4 (05:15→18:00)
[2018-10-31] MEDS: D5 1/2NS 1,000 ML IV SCH (05:15)
[2018-10-31 06:17] LABS: BASOPHILS % (AUTO) 1.1 % (0.0-2.0); EOSINOPHILS % (AUTO) 1.1 % (0.0-3.0); HEMATOCRIT 40.3 % (42.0-52.0); HEMOGLOBIN 12.9 G/DL (14.2-18.0); LYMPHOCYTES % (AUTO) 15.3 % (20.0-45.0); MEAN CORPUSCULAR VOLUME 90 FL (80-99); MONOCYTES % (AUTO) 10.5 % (1.0-10.0); NEUTROPHILS % (AUTO) 72.1 % (45.0-75.0); PLATELET COUNT 116 K/UL (150-450); RED BLOOD COUNT 4.49 M/UL (4.70-6.10); RED CELL DISTRIBUTION WIDTH 19.3 % (11.6-14.8); WHITE BLOOD COUNT 6.3 K/UL (4.8-10.8)
[2018-10-31 06:48] LABS: ALANINE AMINOTRANSFERASE 39 U/L (12-78); ALBUMIN 2.5 G/DL (3.4-5.0); ALBUMIN/GLOBULIN RATIO 0.5 (1.0-2.7); ALKALINE PHOSPHATASE 437 U/L (46-116); ANION GAP 7 mmol/L (5-15); ASPARTATE AMINO TRANSFERASE 35 U/L (15-37); BILIRUBIN,TOTAL 3.4 MG/DL (0.2-1.0); BLOOD UREA NITROGEN 15 mg/dL (7-18); CALCIUM 8.8 MG/DL (8.5-10.1); CARBON DIOXIDE 28 MMOL/L (21-32); CHLORIDE 105 MMOL/L (98-107); CREATININE 0.6 MG/DL (0.55-1.30); SODIUM 142 MMOL/L (136-145)
[2018-10-31 06:53] LABS: POTASSIUM 2.3 MMOL/L (3.5-5.1)
[2018-10-31 06:54] LABS: BILIRUBIN,DIRECT 1.6 MG/DL (0.0-0.3)
--- NOTE | 2018-10-31 06:57 | NUR ---
NURSE NOTES: Called and left a message with Dr. Ko regarding pts potassium level. Awaiting call back.
--- NOTE | 2018-10-31 07:57 | Urology Progress Note ---
Assessment/Plan Status: unchanged Assessment/Plan: 1. Urinary retention with chronic suprapubic tube. 2. Neurogenic bladder. 3. Hydronephrosis, which appears to be chronic. 4. Nephrolithiasis. 5. Cystitis. 6. Hematuria. 7. Probable colonized urine. monitor clinically keep SP tube hand irrigated and do PRN abx as ordered f/u on blood cx Subjective Allergies: Coded Allergies: SULFAMETHOXAZOLE (Verified Allergy, Unknown, 10/18/17) TRIMETHOPRIM (Verified Allergy, Unknown, 10/18/17) Subjective looks comfortable Objective Last 24 Hour Vital Signs Date Time Temp Pulse Resp B/P (MAP) Pulse Ox O2 Delivery O2 Flow Rate FiO2 10/31/18 04:00 98.0 68 18 139/68 (91) 99 10/31/18 04:00 104 10/31/18 00:00 98.1 115 18 125/86 (99) 100 10/31/18 00:00 113 10/30/18 21:00 Trach Collar 10/30/18 20:00 97.6 116 18 124/83 (97) 98 10/30/18 20:00 113 10/30/18 16:00 98.1 116 20 121/83 (96) 94 10/30/18 15:18 112 10/30/18 12:00 98.9 57 18 135/87 (103) 94 10/30/18 11:37 114 10/30/18 11:37 110 10/30/18 09:00 Room Air 10/30/18 08:00 98.6 83 20 130/69 (89) 94 Microbiology Date/Time Source Procedure Growth Status 10/30/18 08:08 Blood Blood Culture - Preliminary Resulted 10/28/18 13:40 Nasal Nares Left MRSA Culture - Final NO METHICILLIN RESISTANT STAPH AUREUS... Complete 10/28/18 13:40 Rectum VRE Culture - Final Enterococcus Faecalis - Vre Complete 10/28/18 13:40 Rectum - Final NO CARBAPENEM-RESISTANT ENTEROBACTERI... Complete Current Medications Medications (Trade) Dose Ordered Sig/Vicenta Route PRN Reason Start Time Stop Time Status Last Admin Dose Admin Acetaminophen (Tylenol) 650 mg Q4H PRN ORAL fever 10/29/18 12:30 11/27/18 12:29 Acetaminophen (Tylenol) 650 mg Q4H PRN RECTAL Mild Pain (Pain Scale 1-3) 10/29/18 14:45 11/28/18 10:44 Barium Sulfate (Readi-Cat 2) 450 ml NOW PRN ORAL Radiology Procedure 10/30/18 17:00 11/01/18 16:57 Cefepime HCl 1 gm/ Dextrose 55 ml @ 110 mls/hr EVERY 12 HOURS IVPB 10/29/18 21:00 11/05/18 20:59 10/30/18 21:37 Chlorhexidine Gluconate (Caitlyn-Hex 2%) 1 applic DAILY@2000 TOPIC 10/29/18 20:00 11/28/18 19:59 10/30/18 21:35 Dextrose (Dextrose 50%) 25 ml Q30M PRN IV Hypoglycemia 10/29/18 12:30 11/27/18 14:29 Dextrose (Dextrose 50%) 50 ml Q30M PRN IV Hypoglycemia 10/29/18 12:30 11/27/18 14:29 Dextrose/Sodium Chloride 1,000 ml @ 75 mls/hr [id number] IV 10/29/18 12:00 11/27/18 14:21 10/31/18 05:15 Diphenhydramine HCl (Benadryl) 25 mg Q6H PRN ORAL Itching/Pruritis 10/29/18 12:30 11/27/18 12:29 Docusate Sodium (Colace) 100 mg THREE TIMES A DAY ORAL 10/31/18 09:00 11/30/18 08:59 Gabapentin (Neurontin) 600 mg Q6HR GT 10/29/18 12:00 11/27/18 17:59 Heparin Sodium (Porcine) (Heparin 5000 units/ml) 5,000 units EVERY 12 HOURS SUBQ 10/29/18 21:00 11/27/18 20:59 Iopamidol (Isovue-300 100ml) 100 ml NOW PRN INJ Radiology Procedure 10/30/18 15:15 11/01/18 15:14 Lactulose (Cephulac) 30 gm THREE TIMES A DAY ORAL 10/31/18 09:00 11/30/18 08:59 Levetiracetam (Keppra) 500 mg TID GT 10/29/18 13:00 11/27/18 17:59 Levothyroxine Sodium (Synthroid) 125 mcg DAILY GT 10/30/18 09:00 11/28/18 08:59 Lorazepam (Ativan 2mg/ml 1ml) 1 mg Q4H PRN IV agitation 10/29/18 12:30 11/04/18 12:29 Metoclopramide HCl (Reglan) 10 mg Q6H PRN IVP severe nausea 10/29/18 12:30 11/27/18 12:29 Mineral Oil (Fleet's Mineral Oil Enema) 133 ml EVERY OTHER DAY RECTAL 10/31/18 09:00 11/30/18 08:59 Morphine Sulfate (Morphine Sulfate) 2 mg Q4H PRN IVP severe Pain (Pain Scale 7-10) 10/29/18 12:30 11/04/18 12:29 Nitroglycerin (Ntg) 0.4 mg Q5M X 3 DOSES PRN SL Prn Chest Pain 10/29/18 12:00 11/27/18 14:29 Ondansetron HCl (Zofran) 4 mg Q6H PRN IVP Nausea & Vomiting 10/29/18 12:30 11/27/18 12:29 Pantoprazole (Protonix) 40 mg DAILY IV 10/30/18 09:00 11/28/18 08:59 10/30/18 09:17 Polyethylene Glycol (Miralax) 17 gm HSPRN PRN ORAL Constipation 10/29/18 14:30 11/27/18 14:29 Potassium Chloride (K-Dur) 40 meq Q4H ORAL 10/31/18 07:00 10/31/18 15:01 Promethazine HCl (Phenergan) 25 mg Q6H PRN IM REFRACTORY N/V 10/29/18 12:30 11/27/18 12:29 Temazepam (Restoril) 15 mg HSPRN PRN ORAL Insomnia 10/29/18 12:30 11/04/18 12:29 Vancomycin HCl (Vanco rx to dose) 1 ea DAILY PRN MISC Per rx protocol 10/29/18 19:30 11/28/18 19:29 Vancomycin HCl/ Dextrose 275 ml @ 183.333 mls/hr Q12HR IVPB 10/30/18 09:00 11/04/18 08:59 10/30/18 21:36 Laboratory Tests 10/30/18 08:08: White Blood Count 6.6, Red Blood Count 4.54L, Hemoglobin 12.9L, Hematocrit 41.0L , Mean Corpuscular Volume 90, Mean Corpuscular Hemoglobin 28.5, Mean Corpuscular Hemoglobin Concent 31.6L, Red Cell Distribution Width 19.4H, Platelet Count 117L, Mean Platelet Volume 6.3L, Neutrophils (%) (Auto) 72.8, Lymphocytes (%) (Auto) 8.8L, Monocytes (%) (Auto) 15.7H, Eosinophils (%) (Auto) 0.7, Basophils (%) (Auto) 2.1H, Sodium Level 141, Potassium Level 2.2*L, Chloride Level 104, Carbon Dioxide Level 29, Anion Gap 9, Blood Urea Nitrogen 17 , Creatinine 0.6, Estimat Glomerular Filtration Rate > 60, Glucose Level 118H, Calcium Level 9.1 10/31/18 05:30: White Blood Count 6.3, Red Blood Count 4.49L, Hemoglobin 12.9L, Hematocrit 40.3L , Mean Corpuscular Volume 90, Mean Corpuscular Hemoglobin 28.6, Mean Corpuscular Hemoglobin Concent 31.9L, Red Cell Distribution Width 19.3H, Platelet Count 116L, Mean Platelet Volume 6.0L, Neutrophils (%) (Auto) 72.1, Lymphocytes (%) (Auto) 15.3L, Monocytes (%) (Auto) 10.5H, Eosinophils (%) (Auto ) 1.1, Basophils (%) (Auto) 1.1, Sodium Level 142, Potassium Level 2.3*L, Chloride Level 105, Carbon Dioxide Level 28, Anion Gap 7, Blood Urea Nitrogen 15 , Creatinine 0.6, Estimat Glomerular Filtration Rate > 60, Glucose Level 130H, Calcium Level 8.8, Phosphorus Level 3.0, Magnesium Level 1.7L, Total Bilirubin 3.4H, Direct Bilirubin 1.6H, Aspartate Amino Transf (AST/SGOT) 35, Alanine Aminotransferase (ALT/SGPT) 39, Alkaline Phosphatase 437H, Total Protein 7.6, Albumin 2.5L, Globulin 5.1, Albumin/Globulin Ratio 0.5L Height (Feet): 5 Height (Inches): 5.00 Weight (Pounds): 188 Objective exam stable SP tube in place, urine is blood tinged Ascencion Palomino MD Oct 31, 2018 07:57
[2018-10-31 08:00] VITALS: BP 122/77
--- NOTE | 2018-10-31 08:00 | NUR ---
NURSE NOTES: Dr. Ramos was notified regarding positive blood culture result of gram negative rolds in 4/4 bottles. Will carry out the order as soon as receives it. Will continue plan of care.
--- NOTE | 2018-10-31 08:07 | NUR ---
NURSE NOTES: Received report from OPAL Vargas. Per OPAL Vargas, G-tube has been completely out but the route of medications are still ordered as G-tube. Per OPAL Vargas, G-tube is covered with ABD gauze. The patient's potassium level is still 2.[address] Ko was notified. The patient's bed in the lowest position, call light in reach, and fall, aspiration, seizure precaution reinforced. Was informed that the patient has positive in blood culture result for gram negative rods on 06/25 bottle and notified to Dr[address] Ramos. PICC line is intact and patent. Will continue plan of care.
--- NOTE | 2018-10-31 08:09 | NUR ---
HAND-OFF: Report given to OPAL Betts. Called and left a message with Dr. Ko regarding IV form of potassium. Pt stable.
[2018-10-31] MEDS: Fleet's Mineral Oil Enema RECTAL SCH (09:00)
[2018-10-31] MEDS: Heparin 5000 units/ml inj SUBQ SCH ×2 (09:00→21:00)
[2018-10-31] MEDS: Docusate 100mg cap ORAL SCH ×2 (09:00→13:00)
[2018-10-31] MEDS: Levothyroxine 125mcg tab GT SCH (09:00)
[2018-10-31] MEDS: levETIRAcetam 500mg/5ml Liquid GT SCH ×2 (09:00→13:00)
[2018-10-31] MEDS: Lactulose 20gm/30ml UDC ORAL SCH ×2 (09:00→13:00)
[2018-10-31] MEDS: Pantoprazole Inj IV SCH (09:41)
[2018-10-31] MEDS: Cefepime HCl 1 GM in D5W 55 ML IVPB SCH ×2 (09:42→23:01)
[2018-10-31] MEDS: Vancomycin 1.25gm Premix IVPB SCH (09:42)
--- NOTE | 2018-10-31 10:54 | Infectious Diseases Prog Note ---
Assessment/Plan Assessment/Plan Abx: IV Vancomycin 10/29- Cefepime 10/29- Assessment: Sepsis 2ry to GNR bacteremia (suspect from urinary source given hydronephrosis and chronic suprapubic catheter; an U/a has not been done yet) -10/30 BCx 06/25 GNR -CT abd/p: Thickening of the underdistended urinary bladder is concerning for cystitis. Consider correlation with urinalysis. Moderate bilateral hydroureteronephrosis. Moderate stool in the rectosigmoid colon is suggestive of constipation. Morphologic features of cirrhosis. Cholelithiasis. -CXR: Left hemidiaphragm is elevated but this appears stable. PICC line and tracheostomy noted. Cardiomegaly is stable. Bones are osteopenic. JT dislodgement and leakage w/ surrounding cellulitis Fever; improving No leukocytosis paraplegia neurogenic bladder COPD GERD seizure disorder s/p trach dysphagia s/p J tube placement 10/22/18 [place] resident Plan: -Continue empiric IV Vancomycin #3/5 for JT site cellulitis -Continue empiric Cefepime #2 gram neg ID and sensi BCx -10/29 SP Amikacin #1 and Flagyl #1 -f/u cx -Monitor CBC/CMP, temperatures -trach/JT care -GI f/u -aspiration precautions -u/a w/ reflex (re-ordered as previous order was not done) -repeat Bcx x2 Thank you for this consultation. Will continue to follow along with you. Discussed with RN. Subjective Allergies: Coded Allergies: SULFAMETHOXAZOLE (Verified Allergy, Unknown, 10/18/17) TRIMETHOPRIM (Verified Allergy, Unknown, 10/18/17) Subjective afebrile >36hrs no leukocytosis gram neg bacteremia Objective Vital Signs Last 24 Hour Vital Signs Date Time Temp Pulse Resp B/P (MAP) Pulse Ox O2 Delivery O2 Flow Rate FiO2 10/31/18 08:00 98.4 100 18 122/77 (92) 100 10/31/18 08:00 90 10/31/18 04:00 98.0 68 18 139/68 (91) 99 10/31/18 04:00 104 10/31/18 00:00 98.1 115 18 125/86 (99) 100 10/31/18 00:00 113 10/30/18 21:00 Trach Collar 10/30/18 20:00 97.6 116 18 124/83 (97) 98 10/30/18 20:00 113 10/30/18 16:00 98.1 116 20 121/83 (96) 94 10/30/18 15:18 112 10/30/18 12:00 98.9 57 18 135/87 (103) 94 10/30/18 11:37 114 10/30/18 11:37 110 Height (Feet): 5 Height (Inches): 5.00 Weight (Pounds): 188 Microbiology Date/Time Source Procedure Growth Status 10/30/18 08:08 Blood Blood Culture - Preliminary Resulted 10/30/18 08:08 Blood Blood Culture - Preliminary Resulted 10/28/18 13:40 Nasal Nares Left MRSA Culture - Final NO METHICILLIN RESISTANT STAPH AUREUS... Complete 10/28/18 13:40 Rectum VRE Culture - Final Enterococcus Faecalis - Vre Complete 10/28/18 13:40 Rectum - Final NO CARBAPENEM-RESISTANT ENTEROBACTERI... Complete Laboratory Tests Test 10/31/18 05:30 10/31/18 08:06 White Blood Count 6.3 K/UL (4.8-10.8) Red Blood Count 4.49 M/UL (4.70-6.10) L Hemoglobin 12.9 G/DL (14.2-18.0) L Hematocrit 40.3 % (42.0-52.0) L Mean Corpuscular Volume 90 FL (80-99) Mean Corpuscular Hemoglobin 28.6 PG (27.0-31.0) Mean Corpuscular Hemoglobin Concent 31.9 G/DL (32.0-36.0) L Red Cell Distribution Width 19.3 % (11.6-14.8) H Platelet Count 116 K/UL (150-450) L Mean Platelet Volume 6.0 FL (6.5-10.1) L Neutrophils (%) (Auto) 72.1 % (45.0-75.0) Lymphocytes (%) (Auto) 15.3 % (20.0-45.0) L Monocytes (%) (Auto) 10.5 % (1.0-10.0) H Eosinophils (%) (Auto) 1.1 % (0.0-3.0) Basophils (%) (Auto) 1.1 % (0.0-2.0) Sodium Level 142 MMOL/L (136-145) Potassium Level 2.3 MMOL/L (3.5-5.1) *L Chloride Level 105 MMOL/L (98-107) Carbon Dioxide Level 28 MMOL/L (21-32) Anion Gap 7 mmol/L (5-15) Blood Urea Nitrogen 15 mg/dL (7-18) Creatinine 0.6 MG/DL (0.55-1.30) Estimat Glomerular Filtration Rate > 60 mL/min (>60) Glucose Level 130 MG/DL (74-106) H Calcium Level 8.8 MG/DL (8.5-10.1) Phosphorus Level 3.0 MG/DL (2.5-4.9) Magnesium Level 1.7 MG/DL (1.8-2.4) L Total Bilirubin 3.4 MG/DL (0.2-1.0) H Direct Bilirubin 1.6 MG/DL (0.0-0.3) H Aspartate Amino Transf (AST/SGOT) 35 U/L (15-37) Alanine Aminotransferase (ALT/SGPT) 39 U/L (12-78) Alkaline Phosphatase 437 U/L (46-116) H Total Protein 7.6 G/DL (6.4-8.2) Albumin 2.5 G/DL (3.4-5.0) L Globulin 5.1 g/dL Albumin/Globulin Ratio 0.5 (1.0-2.7) L Vancomycin Level Trough 21.0 ug/mL (5.0-12.0) H Current Medications Medications (Trade) Dose Ordered Sig/Vicenta Route PRN Reason Start Time Stop Time Status Last Admin Dose Admin Acetaminophen (Tylenol) 650 mg Q4H PRN ORAL fever 10/29/18 12:30 11/27/18 12:29 Acetaminophen (Tylenol) 650 mg Q4H PRN RECTAL Mild Pain (Pain Scale 1-3) 10/29/18 14:45 11/28/18 10:44 Barium Sulfate (Readi-Cat 2) 450 ml NOW PRN ORAL Radiology Procedure 10/30/18 17:00 11/01/18 16:57 Cefepime HCl 1 gm/ Dextrose 55 ml @ 110 mls/hr EVERY 12 HOURS IVPB 10/29/18 21:00 11/05/18 20:59 8/10/19 09:42 Chlorhexidine Gluconate (Caitlyn-Hex 2%) 1 applic DAILY@2000 TOPIC 10/29/18 20:00 11/28/18 19:59 10/30/18 21:35 Dextrose (Dextrose 50%) 25 ml Q30M PRN IV Hypoglycemia 10/29/18 12:30 11/27/18 14:29 Dextrose (Dextrose 50%) 50 ml Q30M PRN IV Hypoglycemia 10/29/18 12:30 11/27/18 14:29 Dextrose/Sodium Chloride 1,000 ml @ 75 mls/hr [id number] IV 10/29/18 12:00 11/27/18 14:21 10/31/18 05:15 Diphenhydramine HCl (Benadryl) 25 mg Q6H PRN ORAL Itching/Pruritis 10/29/18 12:30 11/27/18 12:29 Docusate Sodium (Colace) 100 mg THREE TIMES A DAY ORAL 10/31/18 09:00 11/30/18 08:59 Gabapentin (Neurontin) 600 mg Q6HR GT 10/29/18 12:00 11/27/18 17:59 Heparin Sodium (Porcine) (Heparin 5000 units/ml) 5,000 units EVERY 12 HOURS SUBQ 10/29/18 21:00 11/27/18 20:59 Iopamidol (Isovue-300 100ml) 100 ml NOW PRN INJ Radiology Procedure 10/30/18 15:15 11/01/18 15:14 Lactulose (Cephulac) 30 gm THREE TIMES A DAY ORAL 10/31/18 09:00 11/30/18 08:59 Levetiracetam (Keppra) 500 mg TID GT 10/29/18 13:00 11/27/18 17:59 Levothyroxine Sodium (Synthroid) 125 mcg DAILY GT 10/30/18 09:00 11/28/18 08:59 Lorazepam (Ativan 2mg/ml 1ml) 1 mg Q4H PRN IV agitation 10/29/18 12:30 11/04/18 12:29 Metoclopramide HCl (Reglan) 10 mg Q6H PRN IVP severe nausea 10/29/18 12:30 11/27/18 12:29 Mineral Oil (Fleet's Mineral Oil Enema) 133 ml EVERY OTHER DAY RECTAL 10/31/18 09:00 11/30/18 08:59 Morphine Sulfate (Morphine Sulfate) 2 mg Q4H PRN IVP severe Pain (Pain Scale 7-10) 10/29/18 12:30 11/04/18 12:29 Nitroglycerin (Ntg) 0.4 mg Q5M X 3 DOSES PRN SL Prn Chest Pain 10/29/18 12:00 11/27/18 14:29 Ondansetron HCl (Zofran) 4 mg Q6H PRN IVP Nausea & Vomiting 10/29/18 12:30 11/27/18 12:29 Pantoprazole (Protonix) 40 mg DAILY IV 10/30/18 09:00 11/28/18 08:59 10/31/18 09:41 Polyethylene Glycol (Miralax) 17 gm HSPRN PRN ORAL Constipation 10/29/18 14:30 11/27/18 14:29 Potassium Chloride 100 ml @ 100 mls/hr Q1H IVPB 10/31/18 11:00 10/31/18 14:59 Promethazine HCl (Phenergan) 25 mg Q6H PRN IM REFRACTORY N/V 10/29/18 12:30 11/27/18 12:29 Temazepam (Restoril) 15 mg HSPRN PRN ORAL Insomnia 10/29/18 12:30 11/04/18 12:29 Vancomycin HCl (Vanco rx to dose) 1 ea DAILY PRN MISC Per rx protocol 10/29/18 19:30 11/28/18 19:29 Vancomycin HCl 1 gm/Dextrose 275 ml @ 183.708 mls/hr Q12HR@1000,2200 IVPB 10/31/18 22:00 11/05/18 21:59 Kimi Ramos M.D. Oct 31, 2018 10:54
--- NOTE | 2018-10-31 11:12 | General Progress Note ---
Assessment/Plan Status: unchanged Assessment/Plan: Assessment (1) Malfunction of jejunostomy tube ICD Codes: K94.13 - Enterostomy malfunction SNOMED: 661103578, [id number] (2) Hypokalemia ICD Codes: E87.6 - Hypokalemia SNOMED: 56074683 Status: unchanged Status Narrative Plan Plan for J-tube versus GJ tube replacement, procedure postponed due to hypokalemia. Maintain n.p.o. plus IV fluids Obtain abdominal ultrasound given elevated LFTs Monitor H&H, PRN transfusions PPI Electrolyte correction We will follow with additional recommendations post procedure Subjective Allergies: Coded Allergies: SULFAMETHOXAZOLE (Verified Allergy, Unknown, 10/18/17) TRIMETHOPRIM (Verified Allergy, Unknown, 10/18/17) Subjective above noted minimally conversant Objective Last 24 Hour Vital Signs Date Time Temp Pulse Resp B/P (MAP) Pulse Ox O2 Delivery O2 Flow Rate FiO2 10/31/18 08:00 98.4 100 18 122/77 (92) 100 10/31/18 08:00 90 10/31/18 04:00 98.0 68 18 139/68 (91) 99 10/31/18 04:00 104 10/31/18 00:00 98.1 115 18 125/86 (99) 100 10/31/18 00:00 113 10/30/18 21:00 Trach Collar 10/30/18 20:00 97.6 116 18 124/83 (97) 98 10/30/18 20:00 113 10/30/18 16:00 98.1 116 20 121/83 (96) 94 10/30/18 15:18 112 10/30/18 12:00 98.9 57 18 135/87 (103) 94 10/30/18 11:37 114 10/30/18 11:37 110 Intake and Output 10/30/18 10/31/18 18:59 06:59 Output Total 600 ml Balance -600 ml Output Urine Total 600 ml Laboratory Tests 10/31/18 05:30: White Blood Count 6.3, Red Blood Count 4.49L, Hemoglobin 12.9L, Hematocrit 40.3L , Mean Corpuscular Volume 90, Mean Corpuscular Hemoglobin 28.6, Mean Corpuscular Hemoglobin Concent 31.9L, Red Cell Distribution Width 19.3H, Platelet Count 116L, Mean Platelet Volume 6.0L, Neutrophils (%) (Auto) 72.1, Lymphocytes (%) (Auto) 15.3L, Monocytes (%) (Auto) 10.5H, Eosinophils (%) (Auto ) 1.1, Basophils (%) (Auto) 1.1, Sodium Level 142, Potassium Level 2.3*L, Chloride Level 105, Carbon Dioxide Level 28, Anion Gap 7, Blood Urea Nitrogen 15 , Creatinine 0.6, Estimat Glomerular Filtration Rate > 60, Glucose Level 130H, Calcium Level 8.8, Phosphorus Level 3.0, Magnesium Level 1.7L, Total Bilirubin 3.4H, Direct Bilirubin 1.6H, Aspartate Amino Transf (AST/SGOT) 35, Alanine Aminotransferase (ALT/SGPT) 39, Alkaline Phosphatase 437H, Total Protein 7.6, Albumin 2.5L, Globulin 5.1, Albumin/Globulin Ratio 0.5L 10/31/18 08:06: Vancomycin Level Trough 21.0H Height (Feet): 5 Height (Inches): 5.00 Weight (Pounds): 188 Objective Debilitated WM NCAT supple CTA RR Abd soft ND, (+) SP catheter and abd dressing (+) contractures Renzo Cook MD Oct 31, 2018 11:12
[2018-10-31 12:00] VITALS: BP 122/82
--- NOTE | 2018-10-31 15:03 | Consultation ---
Consult Note Consult Note I am consulted for management of electrolyte imbalance patient examined data reviewed Assessment/Plan Sever hypokalemia Low mag other conditions; 1. JG tube malfunction and leaks. 2. Respiratory failure. 3. Seizure disorder. 4. Chronic obstructive pulmonary disease. 5. Gastroesophageal reflux disease. 6. Neurogenic bladder. 7. Hypothyroidism. 8. Quadriplegia. 9. Tracheostomy in situ. 10.Thrombocytopenia. Plan; K supplement no feeding at GT tube not functioning change all meds to IV as possible monitor lytes check TSH discussed with Sudhakar Dow MD Oct 31, 2018 15:03
--- NOTE | 2018-10-31 15:08 | NUR ---
NURSE NOTES: Spoke with Dr. Silverman regarding abnormal lab of potassium and G-tube matter. In addition to 40meq KCL IVPB that was ordered by Dr. Ko, Dr. Silverman ordered 60meq KCL IVPB. Per Dr. Silverman, he will change GT route medication to IV medication. Will continue to monitor the patient. Will continue plan of care.
--- NOTE | 2018-10-31 15:53 | NUR ---
NURSE NOTES: Notified PETAR Singleton regarding redness, swelling, and yellowish discharge on G-tube site. Per OPAL Vargas, the patient's G-tube was completely out and did not keep it open from ER. Dressing changed as the dressing was wet. Will continue plan of care.
[2018-10-31 16:00] VITALS: BP 121/84
[2018-10-31] MEDS: D5 1/2NS w/KCl 40meq 1000ml 1,000 ML IV SCH (16:39)
--- NOTE | 2018-10-31 17:19 | Internal Med Progress Note ---
Subjective Date of Service: Oct 31, 2018 Physician Name Isidro Hernandez Attending Physician Bruno Ko MD Current Medications Medications (Trade) Dose Ordered Sig/Vicenta Route PRN Reason Start Time Stop Time Status Last Admin Dose Admin Acetaminophen (Tylenol) 650 mg Q4H PRN ORAL fever 10/29/18 12:30 11/27/18 12:29 Acetaminophen (Tylenol) 650 mg Q4H PRN RECTAL Mild Pain (Pain Scale 1-3) 10/29/18 14:45 11/28/18 10:44 Barium Sulfate (Readi-Cat 2) 450 ml NOW PRN ORAL Radiology Procedure 10/30/18 17:00 11/01/18 16:57 Cefepime HCl 1 gm/ Dextrose 55 ml @ 110 mls/hr EVERY 12 HOURS IVPB 10/29/18 21:00 11/05/18 20:59 10/31/18 09:42 Chlorhexidine Gluconate (Caitlyn-Hex 2%) 1 applic DAILY@2000 TOPIC 10/29/18 20:00 11/28/18 19:59 10/30/18 21:35 Dextrose (Dextrose 50%) 25 ml Q30M PRN IV Hypoglycemia 10/29/18 12:30 11/27/18 14:29 Dextrose (Dextrose 50%) 50 ml Q30M PRN IV Hypoglycemia 10/29/18 12:30 11/27/18 14:29 Dextrose/ Electrolytes 1,000 ml @ 50 mls/hr Q20H IV 10/31/18 16:00 11/30/18 15:59 10/31/18 16:39 Gabapentin (Neurontin) 600 mg Q6HR GT 10/29/18 12:00 11/27/18 17:59 Heparin Sodium (Porcine) (Heparin 5000 units/ml) 5,000 units EVERY 12 HOURS SUBQ 10/29/18 21:00 11/27/18 20:59 Iopamidol (Isovue-300 100ml) 100 ml NOW PRN INJ Radiology Procedure 10/30/18 15:15 11/01/18 15:14 Levetiracetam 100 ml @ 400 mls/hr Q12HR IVPB 10/31/18 21:00 11/30/18 20:59 Lorazepam (Ativan 2mg/ml 1ml) 1 mg Q4H PRN IV agitation 10/29/18 12:30 11/04/18 12:29 Metoclopramide HCl (Reglan) 10 mg Q6H PRN IVP severe nausea 10/29/18 12:30 11/27/18 12:29 Mineral Oil (Fleet's Mineral Oil Enema) 133 ml EVERY OTHER DAY RECTAL 10/31/18 09:00 11/30/18 08:59 Morphine Sulfate (Morphine Sulfate) 2 mg Q4H PRN IVP severe Pain (Pain Scale 7-10) 10/29/18 12:30 11/04/18 12:29 Nitroglycerin (Ntg) 0.4 mg Q5M X 3 DOSES PRN SL Prn Chest Pain 10/29/18 12:00 11/27/18 14:29 Pantoprazole (Protonix) 40 mg DAILY IV 10/30/18 09:00 11/28/18 08:59 10/31/18 09:41 Polyethylene Glycol (Miralax) 17 gm HSPRN PRN ORAL Constipation 10/29/18 14:30 11/27/18 14:29 Potassium Chloride 100 ml @ 100 mls/hr Q1H IVPB 10/31/18 15:15 10/31/18 19:14 10/31/18 16:39 Temazepam (Restoril) 15 mg HSPRN PRN ORAL Insomnia 10/29/18 12:30 11/04/18 12:29 Vancomycin HCl (Vanco rx to dose) 1 ea DAILY PRN MISC Per rx protocol 10/29/18 19:30 11/28/18 19:29 Vancomycin HCl 1 gm/Dextrose 275 ml @ 183.708 mls/hr Q12HR@1000,2200 IVPB 10/31/18 22:00 11/05/18 21:59 Allergies: Coded Allergies: SULFAMETHOXAZOLE (Verified Allergy, Unknown, 10/18/17) TRIMETHOPRIM (Verified Allergy, Unknown, 10/18/17) ROS Limited/Unobtainable: Yes Subjective 57 YO M admitted with J-tube malfunction. Cover for Int Med-Dr Ko Objective Last Vital Signs Date Time Temp Pulse Resp B/P (MAP) Pulse Ox O2 Delivery O2 Flow Rate FiO2 10/31/18 16:00 125 10/31/18 16:00 98.4 20 121/84 (96) 97 10/31/18 09:00 Trach Collar Laboratory Tests Test 10/31/18 05:30 10/31/18 08:06 White Blood Count 6.3 K/UL (4.8-10.8) Red Blood Count 4.49 M/UL (4.70-6.10) L Hemoglobin 12.9 G/DL (14.2-18.0) L Hematocrit 40.3 % (42.0-52.0) L Mean Corpuscular Volume 90 FL (80-99) Mean Corpuscular Hemoglobin 28.6 PG (27.0-31.0) Mean Corpuscular Hemoglobin Concent 31.9 G/DL (32.0-36.0) L Red Cell Distribution Width 19.3 % (11.6-14.8) H Platelet Count 116 K/UL (150-450) L Mean Platelet Volume 6.0 FL (6.5-10.1) L Neutrophils (%) (Auto) 72.1 % (45.0-75.0) Lymphocytes (%) (Auto) 15.3 % (20.0-45.0) L Monocytes (%) (Auto) 10.5 % (1.0-10.0) H Eosinophils (%) (Auto) 1.1 % (0.0-3.0) Basophils (%) (Auto) 1.1 % (0.0-2.0) Sodium Level 142 MMOL/L (136-145) Potassium Level 2.3 MMOL/L (3.5-5.1) *L Chloride Level 105 MMOL/L (98-107) Carbon Dioxide Level 28 MMOL/L (21-32) Anion Gap 7 mmol/L (5-15) Blood Urea Nitrogen 15 mg/dL (7-18) Creatinine 0.6 MG/DL (0.55-1.30) Estimat Glomerular Filtration Rate > 60 mL/min (>60) Glucose Level 130 MG/DL (74-106) H Calcium Level 8.8 MG/DL (8.5-10.1) Phosphorus Level 3.0 MG/DL (2.5-4.9) Magnesium Level 1.7 MG/DL (1.8-2.4) L Total Bilirubin 3.4 MG/DL (0.2-1.0) H Direct Bilirubin 1.6 MG/DL (0.0-0.3) H Aspartate Amino Transf (AST/SGOT) 35 U/L (15-37) Alanine Aminotransferase (ALT/SGPT) 39 U/L (12-78) Alkaline Phosphatase 437 U/L (46-116) H Total Protein 7.6 G/DL (6.4-8.2) Albumin 2.5 G/DL (3.4-5.0) L Globulin 5.1 g/dL Albumin/Globulin Ratio 0.5 (1.0-2.7) L Vancomycin Level Trough 21.0 ug/mL (5.0-12.0) H Microbiology Date/Time Source Procedure Growth Status 10/30/18 08:08 Blood Blood Culture - Preliminary Resulted 10/30/18 08:08 Blood Blood Culture - Preliminary Resulted Intake and Output 10/30/18 10/31/18 18:59 06:59 Output Total 600 ml Balance -600 ml Output Urine Total 600 ml Objective PHYSICAL EXAMINATION: GENERAL: The patient is a well-developed and well-nourished white male, in no apparent distress. HEENT: Eyes, pupils are equal and responsive to light and accommodation. Extraocular movements are intact. NECK: Supple without lymphadenopathy. CHEST: Lungs are clear to auscultation bilaterally without wheezes or rales. CARDIOVASCULAR: Regular rhythm and rate. S1 and S2 are normal without murmurs, rubs, or gallops. ABDOMEN: Soft, nontender, and nondistended. Positive bowel sounds. No evidence of hepatosplenomegaly. Currently, no rebound or guarding noted. EXTREMITIES: Negative for clubbing, cyanosis, or edema. RECTAL/GENITAL: Not performed. NEUROLOGIC: Cranial nerves II through XII are grossly intact without focal deficits. Motor strength is 5/5 bilaterally. Deep tendon reflexes are 2+ plantar. Assessment/Plan Assessment/Plan ASSESSMENT: This is a 57-year-old male. 1. Gastrostomy tube malfunction. 2. Respiratory failure. 3. Seizure disorder. 4. Chronic obstructive pulmonary disease. 5. Gastroesophageal reflux disease. 6. Neurogenic bladder. 7. Hypothyroidism. 8. Quadriplegia. 9. Tracheostomy in situ. TREATMENT: 1. J-tube malfunction. A Gastroenterology consultation has been obtained with Dr. Kvng Lehman. scheduled endoscopic replacement of J-tube on October 30, 2018 postponed due to hypokalemia. Reschedule per GI 2. Respiratory failure. A Pulmonary consultation has been obtained with Dr. Mellissa Garcia. Continue DuoNebs as above. 3. Seizure disorder. Continue Keppra and Neurontin as above. 4. Chronic obstructive pulmonary disease. As above, a Pulmonary consultation has been obtained with Dr. Mellissa Garcia. 5. Gastroesophageal reflux disease. Continue famotidine as above. 6. Neurogenic bladder. The patient is status post suprapubic catheter placement. 7. Hypothyroidism. Continue Levoxyl as above. 8. Quadriplegia. 9. Tracheostomy in situ. 10. Hypokalemia. Replace K+ Isidro Hernandez MD Oct 31, 2018 17:19
--- NOTE | 2018-10-31 17:30 | NUR ---
NURSE NOTES: PETAR Singleton ordered wound care consult to Dr. Gomez and also ordered G-tube drainage culture. Carried out the order. Will continue plan of care.
--- NOTE | 2018-10-31 17:38 | NUR ---
NURSE NOTES: Left VM to Dr. Ko due to elevated heart rate of 140-150s for past 20 minute. The patient denies of acute distress or shortness of breath. Will carry out the order as soon as receives it. Will continue plan of care.
[2018-10-31] MEDS ORDERED: Metoprolol 5mg/5ml Inj IVP SCH ×2 (17:59→20:07)
--- NOTE | 2018-10-31 18:00 | NUR ---
NURSE NOTES: Per Dr. Ko, Metoprolol 5mg IVP for sinus tachycardia. Also, Metoprolol 5mg IVP Q8hr per Dr. Ko. Dr. Ko ordered to have consult with Dr. Dobbs. Will carry out the order.
--- NOTE | 2018-10-31 18:17 | NUR ---
NURSE NOTES: Per Laurence, the pharmacist, asked me to scan Metoprolol IVP as unscheduled administration. Scanned the medication but showed as unscheduled medication even though Dr. Ko ordered as STAT Metoprolol 5mg IVP. Given as unscheduled administration.
--- NOTE | 2018-10-31 19:11 | NUR ---
NURSE NOTES: Notified Dr. Ko that the patient's heart rate is still 140s. Per Dr. Ko, monitor the patient without medication. Carried out the order. Will continue to monitor the patient.
--- NOTE | 2018-10-31 19:40 | NUR ---
HAND-OFF: Report given to OPAL Mcclain. The patient is resting on bed without acute distress or shortness of breath. The patient's bed in the lowest position, call light in reach, and fall, aspiration, and seizure precaution reinforced. PICC line intact and patent. Endorsed plan of care.
--- NOTE | 2018-10-31 19:59 | NUR ---
NURSE NOTES: Report received from OPAL Betts. The patient is resting on bed without acute distress or shortness of breath. The patient's bed in the lowest position, call light in reach, and fall, aspiration, and seizure precaution reinforced. PICC line intact and patent. Will continue with plan of care.
[2018-10-31 20:00] VITALS: BP 122/84
--- NOTE | 2018-10-31 20:05 | NUR ---
NURSE NOTES: Per Dr. Ko, Lopressor 5mg IVP now dose due to persistently elevated heart rate. Carried out the order. Endorsed to OPAL Mcclain.
[2018-10-31] MEDS: Dyna-Hex 2% Top Sol 2oz TOPIC SCH (20:30)
[2018-10-31] MEDS: levETIRAcetam 500mg/NS100ml 100 ML IVPB SCH (22:05)
[2018-11-01] VITALS: BP 116/75
[2018-11-01] MEDS: Metoprolol 5mg/5ml Inj IVP SCH ×4 (00:21→22:08)
[2018-11-01] MEDS: Vancomycin 1gm/D5W 275ml IVPB SCH ×6 (00:51→23:41)
[2018-11-01 04:00] VITALS: BP 110/57
[2018-11-01] MEDS: Gabapentin 300 MG/6 ML Soln GT SCH ×4 (06:00→17:41)
--- NOTE | 2018-11-01 07:11 | NUR ---
NURSE NOTES: Received report from OPAL Mcclain. The patient is sleeping on the bed without acute distress or shortness of breath. The patient's bed in the lowest position, call light in reach, and fall, aspiration, seizure precaution reinforced. Right upper arm PICC line intact and patent. The patient still has tachycardia with heart rate of 104 now. Will continue plan of care.
[2018-11-01 07:24] LABS: BASOPHILS % (AUTO) 0.4 % (0.0-2.0); EOSINOPHILS % (AUTO) 0.6 % (0.0-3.0); HEMATOCRIT 39.1 % (42.0-52.0); HEMOGLOBIN 12.4 G/DL (14.2-18.0); LYMPHOCYTES % (AUTO) 16.3 % (20.0-45.0); MEAN CORPUSCULAR VOLUME 90 FL (80-99); MONOCYTES % (AUTO) 11.7 % (1.0-10.0); PLATELET COUNT 134 K/UL (150-450); RED BLOOD COUNT 4.33 M/UL (4.70-6.10); RED CELL DISTRIBUTION WIDTH 19.2 % (11.6-14.8); WHITE BLOOD COUNT 8.1 K/UL (4.8-10.8)
[2018-11-01 07:57] LABS: ALANINE AMINOTRANSFERASE 32 U/L (12-78); ALBUMIN 2.3 G/DL (3.4-5.0); ALBUMIN/GLOBULIN RATIO 0.5 (1.0-2.7); ALKALINE PHOSPHATASE 425 U/L (46-116); ANION GAP 9 mmol/L (5-15); ASPARTATE AMINO TRANSFERASE 32 U/L (15-37); BILIRUBIN,TOTAL 3.9 MG/DL (0.2-1.0); BLOOD UREA NITROGEN 10 mg/dL (7-18); CALCIUM 8.5 MG/DL (8.5-10.1); CARBON DIOXIDE 27 MMOL/L (21-32); CHLORIDE 105 MMOL/L (98-107); CREATININE 0.5 MG/DL (0.55-1.30); FERRITIN 207 NG/ML (8-388); GAMMA GLUTAMYL TRANSPEPTIDASE 339 U/L (5-85); SODIUM 142 MMOL/L (136-145)
[2018-11-01 08:00] VITALS: BP 112/57
[2018-11-01 08:00] LABS: POTASSIUM 2.5 MMOL/L (3.5-5.1)
[2018-11-01 08:01] LABS: BILIRUBIN,DIRECT 1.8 MG/DL (0.0-0.3)
--- NOTE | 2018-11-01 08:10 | NUR ---
NURSE NOTES: Notified Dr. Ko and paged Dr. Silverman regarding abnormal labs: Potassium of 2.5, Phos 2.0, Mg 1.7, elevated bilirubin level, elevated Ammonia, and TSH level. Will continue to monitor the patient. Will continue plan of care.
[2018-11-01] MEDS: Heparin 5000 units/ml inj SUBQ SCH ×2 (09:00→21:00)
[2018-11-01 09:11] LABS: % IRON SATURATION 10 % (15-50); IRON 21 ug/dL (50-175); TOTAL IRON BINDING CAPACITY 206 ug/dL (250-450)
[2018-11-01] MEDS: Pantoprazole Inj IV SCH (09:29)
[2018-11-01] MEDS: Cefepime HCl 1 GM in D5W 55 ML IVPB SCH ×2 (09:29→22:15)
[2018-11-01] MEDS: levETIRAcetam 500mg/NS100ml 100 ML IVPB SCH ×2 (09:44→21:16)
--- NOTE | 2018-11-01 10:00 | NUR ---
NURSE NOTES: Dr. Silverman ordered and confirmed 10bags of 10mEq KCL IVPB. The patient is stable without acute distress or shortness of breath. Will continue to monitor the patient. Will continue plan of care.
[2018-11-01] MEDS ORDERED: Sodium Phosphate 15 MM in NS 275 ML IVPB ONE (10:30)
--- NOTE | 2018-11-01 10:55 | Nephrology Progress Note ---
Assessment/Plan Problem List: (1) Hypokalemia (2) Malfunction of gastrostomy tube (3) Malfunction of jejunostomy tube (4) Seizures Assessment Sever hypokalemia Low mag other conditions; 1. JG tube malfunction and leaks. 2. Respiratory failure. 3. Seizure disorder. 4. Chronic obstructive pulmonary disease. 5. Gastroesophageal reflux disease. 6. Neurogenic bladder. 7. Hypothyroidism. 8. Quadriplegia. 9. Tracheostomy in situ. 10.Thrombocytopenia. Plan Vigorous K supplement IV waiting for GT functionality ! ( Per GI) Monitor lytes and renal parameters per orders Objective Objective Last 24 Hour Vital Signs Date Time Temp Pulse Resp B/P (MAP) Pulse Ox O2 Delivery O2 Flow Rate FiO2 11/01/18 08:00 96.6 105 18 112/57 (75) 98 11/01/18 07:38 96 Trach Collar 6.0 28 11/01/18 06:38 117 104/61 11/01/18 04:00 126 11/01/18 04:00 99.7 126 24 110/57 (74) 99 11/01/18 01:00 110 11/01/18 01:00 97 Trach Collar 6.0 28 11/01/18 00:25 110 11/01/18 00:21 131 114/70 11/01/18 00:00 99.8 132 24 116/75 (89) 96 11/01/18 00:00 132 10/31/18 21:00 Trach Collar 10/31/18 20:40 95 Trach Collar 6.0 28 10/31/18 20:21 146 120/80 10/31/18 20:00 99.6 127 20 122/84 (97) 98 10/31/18 20:00 127 10/31/18 18:08 154 121/84 10/31/18 16:00 125 10/31/18 16:00 98.4 120 20 121/84 (96) 97 10/31/18 12:00 98.3 101 20 122/82 (95) 98 10/31/18 12:00 100 Intake and Output 10/31/18 11/01/18 19:00 07:00 Output Total 700 ml 575 ml Balance -700 ml -575 ml Output Urine Total 700 ml 575 ml # Voids 2 Laboratory Tests 10/31/18 19:00: Potassium Level 3.2L 11/01/18 06:05: Potassium Level 2.5*L, White Blood Count 8.1, Red Blood Count 4.33L, Hemoglobin 12.4L, Hematocrit 39.1L, Mean Corpuscular Volume 90, Mean Corpuscular Hemoglobin 28.7, Mean Corpuscular Hemoglobin Concent 31.8L, Red Cell Distribution Width 19.2H, Platelet Count 134L, Mean Platelet Volume 6.4L, Neutrophils (%) (Auto) 71.0, Lymphocytes (%) (Auto) 16.3L, Monocytes (%) (Auto) 11.7H, Eosinophils (%) (Auto) 0.6, Basophils (%) (Auto) 0.4, Sodium Level 142, Chloride Level 105, Carbon Dioxide Level 27, Anion Gap 9, Blood Urea Nitrogen 10 , Creatinine 0.5L, Estimat Glomerular Filtration Rate > 60, Glucose Level 93, Uric Acid 3.2, Calcium Level 8.5, Phosphorus Level 2.0L, Magnesium Level 1.7L, Iron Level 21L, Total Iron Binding Capacity 206L, Percent Iron Saturation 10L, Unsaturated Iron Binding 185, Ferritin 207, Total Bilirubin 3.9H, Direct Bilirubin 1.8H, Gamma Glutamyl Transpeptidase 339H, Aspartate Amino Transf (AST/ SGOT) 32, Alanine Aminotransferase (ALT/SGPT) 32, Alkaline Phosphatase 425H, Ammonia 52H, C-Reactive Protein, Quantitative 15.4H, Pro-B-Type Natriuretic Peptide 233H, Total Protein 7.2, Albumin 2.3L, Globulin 4.9, Albumin/Globulin Ratio 0.5L, Vitamin B12 Level > 2000H, Folate 37.6, Thyroid Stimulating Hormone (TSH) 4.283H Height (Feet): 5 Height (Inches): 5.00 Weight (Pounds): 188 Sudhakar Silverman MD Nov 01, 2018 10:55
[2018-11-01 12:00] VITALS: BP 105/64
--- NOTE | 2018-11-01 12:16 | General Progress Note ---
Assessment/Plan Status: unchanged Assessment/Plan: Assessment (1) Malfunction of jejunostomy tube ICD Codes: K94.13 - Enterostomy malfunction SNOMED: 096806824, [id number] (2) Hypokalemia ICD Codes: E87.6 - Hypokalemia SNOMED: 32102101 Status: unchanged Status Narrative Plan Plan for J-tube versus GJ tube replacement, procedure postponed due to hypokalemia. RN to place small perez in ostomy site to keep open Maintain n.p.o. plus IV fluids Obtain abdominal ultrasound given elevated LFTs Monitor H&H, PRN transfusions PPI Electrolyte correction We will follow with additional recommendations post procedure Subjective Allergies: Coded Allergies: SULFAMETHOXAZOLE (Verified Allergy, Unknown, 10/18/17) TRIMETHOPRIM (Verified Allergy, Unknown, 10/18/17) Subjective above noted minimally conversant J tube out Objective Last 24 Hour Vital Signs Date Time Temp Pulse Resp B/P (MAP) Pulse Ox O2 Delivery O2 Flow Rate FiO2 11/01/18 08:00 96.6 105 18 112/57 (75) 98 11/01/18 07:38 96 Trach Collar 6.0 28 11/01/18 06:38 117 104/61 11/01/18 04:00 126 11/01/18 04:00 99.7 126 24 110/57 (74) 99 11/01/18 01:00 110 11/01/18 01:00 97 Trach Collar 6.0 28 11/01/18 00:25 110 11/01/18 00:21 131 114/70 11/01/18 00:00 99.8 132 24 116/75 (89) 96 11/01/18 00:00 132 10/31/18 21:00 Trach Collar 10/31/18 20:40 95 Trach Collar 6.0 28 10/31/18 20:21 146 120/80 10/31/18 20:00 99.6 127 20 122/84 (97) 98 10/31/18 20:00 127 10/31/18 18:08 154 121/84 10/31/18 16:00 125 10/31/18 16:00 98.4 120 20 121/84 (96) 97 Intake and Output 10/31/18 11/01/18 19:00 07:00 Output Total 700 ml 575 ml Balance -700 ml -575 ml Output Urine Total 700 ml 575 ml # Voids 2 Laboratory Tests 10/31/18 19:00: Potassium Level 3.2L 11/01/18 06:05: Potassium Level 2.5*L, White Blood Count 8.1, Red Blood Count 4.33L, Hemoglobin 12.4L, Hematocrit 39.1L, Mean Corpuscular Volume 90, Mean Corpuscular Hemoglobin 28.7, Mean Corpuscular Hemoglobin Concent 31.8L, Red Cell Distribution Width 19.2H, Platelet Count 134L, Mean Platelet Volume 6.4L, Neutrophils (%) (Auto) 71.0, Lymphocytes (%) (Auto) 16.3L, Monocytes (%) (Auto) 11.7H, Eosinophils (%) (Auto) 0.6, Basophils (%) (Auto) 0.4, Sodium Level 142, Chloride Level 105, Carbon Dioxide Level 27, Anion Gap 9, Blood Urea Nitrogen 10 , Creatinine 0.5L, Estimat Glomerular Filtration Rate > 60, Glucose Level 93, Uric Acid 3.2, Calcium Level 8.5, Phosphorus Level 2.0L, Magnesium Level 1.7L, Iron Level 21L, Total Iron Binding Capacity 206L, Percent Iron Saturation 10L, Unsaturated Iron Binding 185, Ferritin 207, Total Bilirubin 3.9H, Direct Bilirubin 1.8H, Gamma Glutamyl Transpeptidase 339H, Aspartate Amino Transf (AST/ SGOT) 32, Alanine Aminotransferase (ALT/SGPT) 32, Alkaline Phosphatase 425H, Ammonia 52H, C-Reactive Protein, Quantitative 15.4H, Pro-B-Type Natriuretic Peptide 233H, Total Protein 7.2, Albumin 2.3L, Globulin 4.9, Albumin/Globulin Ratio 0.5L, Vitamin B12 Level > 2000H, Folate 37.6, Thyroid Stimulating Hormone (TSH) 4.283H Height (Feet): 5 Height (Inches): 5.00 Weight (Pounds): 188 Objective Debilitated WM NCAT supple CTA RR Abd soft ND, (+) SP catheter and abd dressing - (++) mucoid d/c from ostomy site (+) contractures Renzo Cook MD Nov 01, 2018 12:16
--- NOTE | 2018-11-01 12:40 | Urology Progress Note ---
Assessment/Plan Status: unchanged Assessment/Plan: 1. Urinary retention with chronic suprapubic tube. 2. Neurogenic bladder. 3. Hydronephrosis, which appears to be chronic. 4. Nephrolithiasis. 5. Cystitis. 6. Hematuria. 7. Probable colonized urine. 8. Sepsis. monitor clinically keep SP tube hand irrigated and do PRN abx as ordered f/u on final blood cx Subjective Allergies: Coded Allergies: SULFAMETHOXAZOLE (Verified Allergy, Unknown, 10/18/17) TRIMETHOPRIM (Verified Allergy, Unknown, 10/18/17) Subjective looks comfortable Objective Last 24 Hour Vital Signs Date Time Temp Pulse Resp B/P (MAP) Pulse Ox O2 Delivery O2 Flow Rate FiO2 11/01/18 08:00 96.6 105 18 112/57 (75) 98 11/01/18 07:38 96 Trach Collar 6.0 28 11/01/18 06:38 117 104/61 11/01/18 04:00 126 11/01/18 04:00 99.7 126 24 110/57 (74) 99 11/01/18 01:00 110 11/01/18 01:00 97 Trach Collar 6.0 28 11/01/18 00:25 110 11/01/18 00:21 131 114/70 11/01/18 00:00 99.8 132 24 116/75 (89) 96 11/01/18 00:00 132 10/31/18 21:00 Trach Collar 10/31/18 20:40 95 Trach Collar 6.0 28 10/31/18 20:21 146 120/80 10/31/18 20:00 99.6 127 20 122/84 (97) 98 10/31/18 20:00 127 10/31/18 18:08 154 121/84 10/31/18 16:00 125 10/31/18 16:00 98.4 120 20 121/84 (96) 97 Intake and Output 10/31/18 11/01/18 19:00 07:00 Output Total 700 ml 575 ml Balance -700 ml -575 ml Output Urine Total 700 ml 575 ml # Voids 2 Microbiology Date/Time Source Procedure Growth Status 10/30/18 08:08 Blood Blood Culture - Preliminary Gram Negative Bacillus 1 Resulted 10/31/18 21:30 Sputum Gram Stain - Final Resulted 10/31/18 21:30 Sputum Sputum Culture Pending Resulted 10/28/18 13:40 Rectum VRE Culture - Final Enterococcus Faecalis - Vre Complete 10/28/18 13:40 Rectum - Final NO CARBAPENEM-RESISTANT ENTEROBACTERI... Complete Current Medications Medications (Trade) Dose Ordered Sig/Vicenta Route PRN Reason Start Time Stop Time Status Last Admin Dose Admin Acetaminophen (Tylenol) 650 mg Q4H PRN ORAL fever 10/29/18 12:30 11/27/18 12:29 Acetaminophen (Tylenol) 650 mg Q4H PRN RECTAL Mild Pain (Pain Scale 1-3) 10/29/18 14:45 11/28/18 10:44 Barium Sulfate (Readi-Cat 2) 450 ml NOW PRN ORAL Radiology Procedure 10/30/18 17:00 11/01/18 16:57 Cefepime HCl 1 gm/ Dextrose 55 ml @ 110 mls/hr EVERY 12 HOURS IVPB 10/29/18 21:00 11/05/18 20:59 11/01/18 09:29 Chlorhexidine Gluconate (Caitlyn-Hex 2%) 1 applic DAILY@2000 TOPIC 10/29/18 20:00 11/28/18 19:59 10/31/18 20:30 Dextrose (Dextrose 50%) 25 ml Q30M PRN IV Hypoglycemia 10/29/18 12:30 11/27/18 14:29 Dextrose (Dextrose 50%) 50 ml Q30M PRN IV Hypoglycemia 10/29/18 12:30 11/27/18 14:29 Dextrose/ Electrolytes 1,000 ml @ 50 mls/hr Q20H IV 10/31/18 16:00 11/30/18 15:59 10/31/18 16:39 Gabapentin (Neurontin) 600 mg Q6HR GT 10/29/18 12:00 11/27/18 17:59 Heparin Sodium (Porcine) (Heparin 5000 units/ml) 5,000 units EVERY 12 HOURS SUBQ 10/29/18 21:00 11/27/18 20:59 Iopamidol (Isovue-300 100ml) 100 ml NOW PRN INJ Radiology Procedure 10/30/18 15:15 11/01/18 15:14 Levetiracetam 100 ml @ 400 mls/hr Q12HR IVPB 10/31/18 21:00 11/30/18 20:59 11/01/18 09:44 Lorazepam (Ativan 2mg/ml 1ml) 1 mg Q4H PRN IV agitation 10/29/18 12:30 11/04/18 12:29 Metoclopramide HCl (Reglan) 10 mg Q6H PRN IVP severe nausea 10/29/18 12:30 11/27/18 12:29 Metoprolol Tartrate (Lopressor) 5 mg Q8HR IVP 10/31/18 22:00 11/30/18 21:59 11/01/18 06:38 Mineral Oil (Fleet's Mineral Oil Enema) 133 ml EVERY OTHER DAY RECTAL 10/31/18 09:00 11/30/18 08:59 Morphine Sulfate (Morphine Sulfate) 2 mg Q4H PRN IVP severe Pain (Pain Scale 7-10) 10/29/18 12:30 11/04/18 12:29 10/31/18 17:49 Nitroglycerin (Ntg) 0.4 mg Q5M X 3 DOSES PRN SL Prn Chest Pain 10/29/18 12:00 11/27/18 14:29 Pantoprazole (Protonix) 40 mg DAILY IV 10/30/18 09:00 11/28/18 08:59 11/01/18 09:29 Polyethylene Glycol (Miralax) 17 gm HSPRN PRN ORAL Constipation 10/29/18 14:30 11/27/18 14:29 Potassium Chloride 100 ml @ 100 mls/hr Q1H IVPB 11/01/18 10:30 11/01/18 14:29 11/01/18 12:17 Potassium Chloride 100 ml @ 100 mls/hr Q1HR IVPB 11/01/18 14:30 11/01/18 19:59 Sodium Phosphate 15 mm/Sodium Chloride 280 ml @ 70.273 mls/ hr ONCE ONCE IVPB 11/01/18 10:30 11/01/18 14:29 11/01/18 10:51 Temazepam (Restoril) 15 mg HSPRN PRN ORAL Insomnia 10/29/18 12:30 11/04/18 12:29 Vancomycin HCl (Vanco rx to dose) 1 ea DAILY PRN MISC Per rx protocol 10/29/18 19:30 11/28/18 19:29 Vancomycin HCl 1 gm/Dextrose 275 ml @ 183.708 mls/hr Q12HR@1000,2200 IVPB 10/31/18 22:00 11/05/18 21:59 11/01/18 10:16 Laboratory Tests 10/31/18 19:00: Potassium Level 3.2L 11/01/18 06:05: Potassium Level 2.5*L, White Blood Count 8.1, Red Blood Count 4.33L, Hemoglobin 12.4L, Hematocrit 39.1L, Mean Corpuscular Volume 90, Mean Corpuscular Hemoglobin 28.7, Mean Corpuscular Hemoglobin Concent 31.8L, Red Cell Distribution Width 19.2H, Platelet Count 134L, Mean Platelet Volume 6.4L, Neutrophils (%) (Auto) 71.0, Lymphocytes (%) (Auto) 16.3L, Monocytes (%) (Auto) 11.7H, Eosinophils (%) (Auto) 0.6, Basophils (%) (Auto) 0.4, Sodium Level 142, Chloride Level 105, Carbon Dioxide Level 27, Anion Gap 9, Blood Urea Nitrogen 10 , Creatinine 0.5L, Estimat Glomerular Filtration Rate > 60, Glucose Level 93, Uric Acid 3.2, Calcium Level 8.5, Phosphorus Level 2.0L, Magnesium Level 1.7L, Iron Level 21L, Total Iron Binding Capacity 206L, Percent Iron Saturation 10L, Unsaturated Iron Binding 185, Ferritin 207, Total Bilirubin 3.9H, Direct Bilirubin 1.8H, Gamma Glutamyl Transpeptidase 339H, Aspartate Amino Transf (AST/ SGOT) 32, Alanine Aminotransferase (ALT/SGPT) 32, Alkaline Phosphatase 425H, Ammonia 52H, C-Reactive Protein, Quantitative 15.4H, Pro-B-Type Natriuretic Peptide 233H, Total Protein 7.2, Albumin 2.3L, Globulin 4.9, Albumin/Globulin Ratio 0.5L, Vitamin B12 Level > 2000H, Folate 37.6, Thyroid Stimulating Hormone (TSH) 4.283H Height (Feet): 5 Height (Inches): 5.00 Weight (Pounds): 188 Objective exam stable SP tube in place, urine is blood tinged Ascencion Palomino MD Nov 01, 2018 12:39
[2018-11-01] MEDS: D5 1/2NS w/KCl 40meq 1000ml 1,000 ML IV SCH (12:45)
--- NOTE | 2018-11-01 12:57 | NUR ---
NURSE NOTES: Syeda, the charge nurse, inserted Dietrich cath at GJ tube stoma site per Dr. Lehman's order. The patient tolerated well. Will continue plan of care.
--- NOTE | 2018-11-01 12:57 | NUR ---
Perez Catheter #[id number] fr. inserted to old jtube site as ordered. old site leaking, stoma open. perez inserted without any resistance. connected to drainage bag. pt. tolerated well.
--- NOTE | 2018-11-01 14:56 | Cardiology Report ---
APPROVED REPORT EKG Measurement Heart [id number] Normal sinus rhythm Right bundle branch block Abnormal ECG
--- NOTE | 2018-11-01 15:15 | Internal Med Progress Note ---
Subjective Date of Service: Nov 01, 2018 Physician Name Isidro Hernandez Attending Physician Bruno Ko MD Current Medications Medications (Trade) Dose Ordered Sig/Vicenta Route PRN Reason Start Time Stop Time Status Last Admin Dose Admin Acetaminophen (Tylenol) 650 mg Q4H PRN ORAL fever 10/29/18 12:30 11/27/18 12:29 Acetaminophen (Tylenol) 650 mg Q4H PRN RECTAL Mild Pain (Pain Scale 1-3) 10/29/18 14:45 11/28/18 10:44 Barium Sulfate (Readi-Cat 2) 450 ml NOW PRN ORAL Radiology Procedure 10/30/18 17:00 11/01/18 16:57 Cefepime HCl 1 gm/ Dextrose 55 ml @ 110 mls/hr EVERY 12 HOURS IVPB 10/29/18 21:00 11/05/18 20:59 11/01/18 09:29 Chlorhexidine Gluconate (Caitlyn-Hex 2%) 1 applic DAILY@2000 TOPIC 10/29/18 20:00 11/28/18 19:59 10/31/18 20:30 Dextrose (Dextrose 50%) 25 ml Q30M PRN IV Hypoglycemia 10/29/18 12:30 11/27/18 14:29 Dextrose (Dextrose 50%) 50 ml Q30M PRN IV Hypoglycemia 10/29/18 12:30 11/27/18 14:29 Dextrose/ Electrolytes 1,000 ml @ 50 mls/hr Q20H IV 10/31/18 16:00 11/30/18 15:59 11/01/18 12:45 Gabapentin (Neurontin) 600 mg Q6HR GT 10/29/18 12:00 11/27/18 17:59 Heparin Sodium (Porcine) (Heparin 5000 units/ml) 5,000 units EVERY 12 HOURS SUBQ 10/29/18 21:00 11/27/18 20:59 Iopamidol (Isovue-300 100ml) 100 ml NOW PRN INJ Radiology Procedure 10/30/18 15:15 11/01/18 15:14 Levetiracetam 100 ml @ 400 mls/hr Q12HR IVPB 10/31/18 21:00 11/30/18 20:59 11/01/18 09:44 Lorazepam (Ativan 2mg/ml 1ml) 1 mg Q4H PRN IV agitation 10/29/18 12:30 11/04/18 12:29 Metoclopramide HCl (Reglan) 10 mg Q6H PRN IVP severe nausea 10/29/18 12:30 11/27/18 12:29 Metoprolol Tartrate (Lopressor) 5 mg Q8HR IVP 10/31/18 22:00 11/30/18 21:59 11/01/18 14:28 Mineral Oil (Fleet's Mineral Oil Enema) 133 ml EVERY OTHER DAY RECTAL 10/31/18 09:00 11/30/18 08:59 Morphine Sulfate (Morphine Sulfate) 2 mg Q4H PRN IVP severe Pain (Pain Scale 7-10) 10/29/18 12:30 11/04/18 12:29 10/31/18 17:49 Nitroglycerin (Ntg) 0.4 mg Q5M X 3 DOSES PRN SL Prn Chest Pain 10/29/18 12:00 11/27/18 14:29 Pantoprazole (Protonix) 40 mg DAILY IV 10/30/18 09:00 11/28/18 08:59 11/01/18 09:29 Polyethylene Glycol (Miralax) 17 gm HSPRN PRN ORAL Constipation 10/29/18 14:30 11/27/18 14:29 Potassium Chloride 100 ml @ 100 mls/hr Q1HR IVPB 11/01/18 14:30 11/01/18 19:59 Temazepam (Restoril) 15 mg HSPRN PRN ORAL Insomnia 10/29/18 12:30 11/04/18 12:29 Vancomycin HCl (Vanco rx to dose) 1 ea DAILY PRN MISC Per rx protocol 10/29/18 19:30 11/28/18 19:29 Vancomycin HCl 1 gm/Dextrose 275 ml @ 183.708 mls/hr Q12HR@1000,2200 IVPB 10/31/18 22:00 11/05/18 21:59 11/01/18 10:16 Allergies: Coded Allergies: SULFAMETHOXAZOLE (Verified Allergy, Unknown, 10/18/17) TRIMETHOPRIM (Verified Allergy, Unknown, 10/18/17) ROS Limited/Unobtainable: Yes Subjective 57 YO M admitted with J-tube malfunction. Now sepsis. Cover for Int Med-Dr Ko Objective Last Vital Signs Date Time Temp Pulse Resp B/P (MAP) Pulse Ox O2 Delivery O2 Flow Rate FiO2 11/01/18 14:28 118 114/76 11/01/18 12:40 97 Trach Collar 6.0 28 11/01/18 08:00 96.6 18 Laboratory Tests Test 10/31/18 19:00 11/01/18 06:05 Potassium Level 3.2 MMOL/L (3.5-5.1) L 2.5 MMOL/L (3.5-5.1) *L White Blood Count 8.1 K/UL (4.8-10.8) Red Blood Count 4.33 M/UL (4.70-6.10) L Hemoglobin 12.4 G/DL (14.2-18.0) L Hematocrit 39.1 % (42.0-52.0) L Mean Corpuscular Volume 90 FL (80-99) Mean Corpuscular Hemoglobin 28.7 PG (27.0-31.0) Mean Corpuscular Hemoglobin Concent 31.8 G/DL (32.0-36.0) L Red Cell Distribution Width 19.2 % (11.6-14.8) H Platelet Count 134 K/UL (150-450) L Mean Platelet Volume 6.4 FL (6.5-10.1) L Neutrophils (%) (Auto) 71.0 % (45.0-75.0) Lymphocytes (%) (Auto) 16.3 % (20.0-45.0) L Monocytes (%) (Auto) 11.7 % (1.0-10.0) H Eosinophils (%) (Auto) 0.6 % (0.0-3.0) Basophils (%) (Auto) 0.4 % (0.0-2.0) Sodium Level 142 MMOL/L (136-145) Chloride Level 105 MMOL/L (98-107) Carbon Dioxide Level 27 MMOL/L (21-32) Anion Gap 9 mmol/L (5-15) Blood Urea Nitrogen 10 mg/dL (7-18) Creatinine 0.5 MG/DL (0.55-1.30) L Estimat Glomerular Filtration Rate > 60 mL/min (>60) Glucose Level 93 MG/DL (74-106) Uric Acid 3.2 MG/DL (2.6-7.2) Calcium Level 8.5 MG/DL (8.5-10.1) Phosphorus Level 2.0 MG/DL (2.5-4.9) L Magnesium Level 1.7 MG/DL (1.8-2.4) L Iron Level 21 ug/dL (50-175) L Total Iron Binding Capacity 206 ug/dL (250-450) L Percent Iron Saturation 10 % (15-50) L Unsaturated Iron Binding 185 ug/dL (112-346) Ferritin 207 NG/ML (8-388) Total Bilirubin 3.9 MG/DL (0.2-1.0) H Direct Bilirubin 1.8 MG/DL (0.0-0.3) H Gamma Glutamyl Transpeptidase 339 U/L (5-85) H Aspartate Amino Transf (AST/SGOT) 32 U/L (15-37) Alanine Aminotransferase (ALT/SGPT) 32 U/L (12-78) Alkaline Phosphatase 425 U/L (46-116) H Ammonia 52 umol/L (11-32) H C-Reactive Protein, Quantitative 15.4 mg/dL (0.00-0.90) H Pro-B-Type Natriuretic Peptide 233 pg/mL (0-125) H Total Protein 7.2 G/DL (6.4-8.2) Albumin 2.3 G/DL (3.4-5.0) L Globulin 4.9 g/dL Albumin/Globulin Ratio 0.5 (1.0-2.7) L Vitamin B12 Level > 2000 PG/ML (193-986) H Folate 37.6 NG/ML (8.6-58.9) Thyroid Stimulating Hormone (TSH) 4.283 uiU/mL (0.358-3.740) Microbiology Date/Time Source Procedure Growth Status 10/30/18 08:08 Blood Blood Culture - Preliminary Gram Negative Bacillus 1 Resulted 10/30/18 08:08 Blood Blood Culture - Preliminary Gram Negative Bacillus 1 Resulted 10/31/18 21:30 Sputum Gram Stain - Final Resulted 10/31/18 21:30 Sputum Sputum Culture Pending Resulted Intake and Output 10/31/18 11/01/18 18:59 06:59 Output Total 700 ml 575 ml Balance -700 ml -575 ml Output Urine Total 700 ml 575 ml # Voids 2 Objective PHYSICAL EXAMINATION: GENERAL: The patient is a well-developed and well-nourished white male, in no apparent distress. HEENT: Eyes, pupils are equal and responsive to light and accommodation. Extraocular movements are intact. NECK: Supple without lymphadenopathy. CHEST: Lungs are clear to auscultation bilaterally without wheezes or rales. CARDIOVASCULAR: Regular rhythm and rate. S1 and S2 are normal without murmurs, rubs, or gallops. ABDOMEN: Soft, nontender, and nondistended. Positive bowel sounds. No evidence of hepatosplenomegaly. Currently, no rebound or guarding noted. EXTREMITIES: Negative for clubbing, cyanosis, or edema. RECTAL/GENITAL: Not performed. NEUROLOGIC: Cranial nerves II through XII are grossly intact without focal deficits. Motor strength is 5/5 bilaterally. Deep tendon reflexes are 2+ plantar. Assessment/Plan Assessment/Plan ASSESSMENT: This is a 57-year-old male. 1. Gastrostomy tube malfunction. 2. Respiratory failure. 3. Seizure disorder. 4. Chronic obstructive pulmonary disease. 5. Gastroesophageal reflux disease. 6. Neurogenic bladder. 7. Hypothyroidism. 8. Quadriplegia. 9. Tracheostomy in situ. 10. Sepsis=gram neg karla TREATMENT: 1. J-tube malfunction. A Gastroenterology consultation has been obtained with Dr. Kvng Lehman. scheduled endoscopic replacement of J-tube on October 30, 2018 postponed due to hypokalemia. Reschedule per GI 2. Respiratory failure. A Pulmonary consultation has been obtained with Dr. Mellissa Garcia. Continue DuoNebs as above. 3. Seizure disorder. Continue Keppra and Neurontin as above. 4. Chronic obstructive pulmonary disease. As above, a Pulmonary consultation has been obtained with Dr. Mellissa Garcia. 5. Gastroesophageal reflux disease. Continue famotidine as above. 6. Neurogenic bladder. The patient is status post suprapubic catheter placement. 7. Hypothyroidism. Continue Levoxyl as above. 8. Quadriplegia. 9. Tracheostomy in situ. 10. Hypokalemia. Replace K+ 11. ABX=vanco and cefepime per Isidro Johnson MD Nov 01, 2018 15:15
[2018-11-01] MEDS ORDERED: Tubing IV Secondary IV ONE (15:21)
[2018-11-01 16:00] VITALS: BP 102/64
--- NOTE | 2018-11-01 19:28 | Pulmonology Progress Note ---
Assessment/Plan Problems: (1) Seizures (2) Sepsis (3) Chronic respiratory failure (4) Malfunction of gastrostomy tube Assessment/Plan need a new PEG hydronephrosis tachycardia most likely secondary to sepsis ID consult called. GI f/u KUB ordered stat Subjective Allergies: Coded Allergies: SULFAMETHOXAZOLE (Verified Allergy, Unknown, 10/18/17) TRIMETHOPRIM (Verified Allergy, Unknown, 10/18/17) Objective Last 24 Hour Vital Signs Date Time Temp Pulse Resp B/P (MAP) Pulse Ox O2 Delivery O2 Flow Rate FiO2 11/01/18 16:00 111 11/01/18 16:00 97.7 75 20 102/64 (77) 98 11/01/18 14:28 118 114/76 11/01/18 12:40 97 Trach Collar 6.0 28 11/01/18 12:00 108 11/01/18 12:00 98.2 109 18 105/64 (78) 98 11/01/18 09:00 Trach Collar 11/01/18 08:00 108 11/01/18 08:00 96.6 105 18 112/57 (75) 98 11/01/18 07:38 96 Trach Collar 6.0 28 11/01/18 06:38 117 104/61 11/01/18 04:00 126 11/01/18 04:00 99.7 126 24 110/57 (74) 99 11/01/18 01:00 110 11/01/18 01:00 97 Trach Collar 6.0 28 11/01/18 00:25 110 11/01/18 00:21 131 114/70 11/01/18 00:00 99.8 132 24 116/75 (89) 96 11/01/18 00:00 132 10/31/18 21:00 Trach Collar 10/31/18 20:40 95 Trach Collar 6.0 28 10/31/18 20:21 146 120/80 10/31/18 20:00 99.6 127 20 122/84 (97) 98 10/31/18 20:00 127 Intake and Output 10/31/18 11/01/18 18:59 06:59 Output Total 700 ml 575 ml Balance -700 ml -575 ml Output Urine Total 700 ml 575 ml # Voids 2 General Appearance: WD/WN HEENT: normocephalic, atraumatic Respiratory/Chest: chest wall non-tender, lungs clear Cardiovascular: normal peripheral pulses, normal rate Abdomen: normal bowel sounds, soft, non tender Genitourinary: normal external genitalia Skin: no rash Neurologic/Psychiatric: no motor/sensory deficits Lymphatic: no neck adenopathy Microbiology Date/Time Source Procedure Growth Status 10/30/18 08:08 Blood Blood Culture - Preliminary Gram Negative Bacillus 1 Resulted 10/30/18 08:08 Blood Blood Culture - Preliminary Gram Negative Bacillus 1 Resulted 10/31/18 21:30 Sputum Gram Stain - Final Resulted 10/31/18 21:30 Sputum Sputum Culture Pending Resulted Laboratory Tests 11/01/18 06:05: White Blood Count 8.1, Red Blood Count 4.33L, Hemoglobin 12.4L, Hematocrit 39.1L , Mean Corpuscular Volume 90, Mean Corpuscular Hemoglobin 28.7, Mean Corpuscular Hemoglobin Concent 31.8L, Red Cell Distribution Width 19.2H, Platelet Count 134L, Mean Platelet Volume 6.4L, Neutrophils (%) (Auto) 71.0, Lymphocytes (%) (Auto) 16.3L, Monocytes (%) (Auto) 11.7H, Eosinophils (%) (Auto ) 0.6, Basophils (%) (Auto) 0.4, Sodium Level 142, Potassium Level 2.5*L, Chloride Level 105, Carbon Dioxide Level 27, Anion Gap 9, Blood Urea Nitrogen 10 , Creatinine 0.5L, Estimat Glomerular Filtration Rate > 60, Glucose Level 93, Uric Acid 3.2, Calcium Level 8.5, Phosphorus Level 2.0L, Magnesium Level 1.7L, Iron Level 21L, Total Iron Binding Capacity 206L, Percent Iron Saturation 10L, Unsaturated Iron Binding 185, Ferritin 207, Total Bilirubin 3.9H, Direct Bilirubin 1.8H, Gamma Glutamyl Transpeptidase 339H, Aspartate Amino Transf (AST/ SGOT) 32, Alanine Aminotransferase (ALT/SGPT) 32, Alkaline Phosphatase 425H, Ammonia 52H, C-Reactive Protein, Quantitative 15.4H, Pro-B-Type Natriuretic Peptide 233H, Total Protein 7.2, Albumin 2.3L, Globulin 4.9, Albumin/Globulin Ratio 0.5L, Vitamin B12 Level > 2000H, Folate 37.6, Thyroid Stimulating Hormone (TSH) 4.283H Current Medications Medications (Trade) Dose Ordered Sig/Vicenta Route PRN Reason Start Time Stop Time Status Last Admin Dose Admin Acetaminophen (Tylenol) 650 mg Q4H PRN ORAL fever 10/29/18 12:30 11/27/18 12:29 Acetaminophen (Tylenol) 650 mg Q4H PRN RECTAL Mild Pain (Pain Scale 1-3) 10/29/18 14:45 11/28/18 10:44 Cefepime HCl 1 gm/ Dextrose 55 ml @ 110 mls/hr EVERY 12 HOURS IVPB 10/29/18 21:00 11/05/18 20:59 11/01/18 09:29 Chlorhexidine Gluconate (Caitlyn-Hex 2%) 1 applic DAILY@2000 TOPIC 10/29/18 20:00 11/28/18 19:59 10/31/18 20:30 Dextrose (Dextrose 50%) 25 ml Q30M PRN IV Hypoglycemia 10/29/18 12:30 11/27/18 14:29 Dextrose (Dextrose 50%) 50 ml Q30M PRN IV Hypoglycemia 10/29/18 12:30 11/27/18 14:29 Dextrose/ Electrolytes 1,000 ml @ 50 mls/hr Q20H IV 10/31/18 16:00 11/30/18 15:59 11/01/18 12:45 Gabapentin (Neurontin) 600 mg Q6HR GT 10/29/18 12:00 11/27/18 17:59 Heparin Sodium (Porcine) (Heparin 5000 units/ml) 5,000 units EVERY 12 HOURS SUBQ 10/29/18 21:00 11/27/18 20:59 Levetiracetam 100 ml @ 400 mls/hr Q12HR IVPB 10/31/18 21:00 11/30/18 20:59 11/01/18 09:44 Lorazepam (Ativan 2mg/ml 1ml) 1 mg Q4H PRN IV agitation 10/29/18 12:30 11/04/18 12:29 Metoclopramide HCl (Reglan) 10 mg Q6H PRN IVP severe nausea 10/29/18 12:30 11/27/18 12:29 Metoprolol Tartrate (Lopressor) 5 mg Q8HR IVP 10/31/18 22:00 11/30/18 21:59 11/01/18 14:28 Mineral Oil (Fleet's Mineral Oil Enema) 133 ml EVERY OTHER DAY RECTAL 10/31/18 09:00 11/30/18 08:59 Morphine Sulfate (Morphine Sulfate) 2 mg Q4H PRN IVP severe Pain (Pain Scale 7-10) 10/29/18 12:30 11/04/18 12:29 10/31/18 17:49 Nitroglycerin (Ntg) 0.4 mg Q5M X 3 DOSES PRN SL Prn Chest Pain 10/29/18 12:00 11/27/18 14:29 Pantoprazole (Protonix) 40 mg DAILY IV 10/30/18 09:00 11/28/18 08:59 11/01/18 09:29 Polyethylene Glycol (Miralax) 17 gm HSPRN PRN ORAL Constipation 10/29/18 14:30 11/27/18 14:29 Potassium Chloride 100 ml @ 100 mls/hr Q1H IVPB 11/01/18 16:30 11/01/18 22:29 11/01/18 18:51 Temazepam (Restoril) 15 mg HSPRN PRN ORAL Insomnia 10/29/18 12:30 11/04/18 12:29 Vancomycin HCl (Vanco rx to dose) 1 ea DAILY PRN MISC Per rx protocol 10/29/18 19:30 11/28/18 19:29 Vancomycin HCl 1 gm/Dextrose 275 ml @ 183.708 mls/hr Q12HR@1000,2200 IVPB 10/31/18 22:00 11/05/18 21:59 11/01/18 10:16 Mellissa Garcia MD Nov 01, 2018 19:28
--- NOTE | 2018-11-01 19:52 | NUR ---
HAND-OFF: Report given to OPAL Mcclain. The patient is resting on the bed without acute distress or shortness of breath. The patient's bed in the lowest position, call light in reach, and fall, aspiration, and seizure precaution reinforced. IV site intact and patent. Endorsed plan of care.
--- NOTE | 2018-11-01 19:52 | NUR ---
NURSE NOTES: Also informed OPAL Mcclain for the procedure tomorrow and the patient needs to be kept on NPO. Endorsed plan of care.
--- NOTE | 2018-11-01 19:53 | NUR ---
NURSE NOTES: Received pt from OPAL Betts. Pt is awake and resting in bed. Will continue with plan of care.
[2018-11-01 20:00] VITALS: BP 112/70
[2018-11-01] MEDS: Dyna-Hex 2% Top Sol 2oz TOPIC SCH (20:45)
[2018-11-02] VITALS (13 sets, daily range): BP systolic 84–127; BP diastolic 54–84
[2018-11-02] MEDS: Gabapentin 300 MG/6 ML Soln GT SCH ×4 (06:00→17:48)
[2018-11-02] MEDS: Metoprolol 5mg/5ml Inj IVP SCH ×2 (06:38→14:00)
--- NOTE | 2018-11-02 07:18 | NUR ---
HAND-OFF: Report given to OPAL Betts. Endorsed plan of care.
[2018-11-02 07:59] LABS: BASOPHILS % (AUTO) 0.8 % (0.0-2.0); EOSINOPHILS % (AUTO) 2.5 % (0.0-3.0); HEMATOCRIT 38.2 % (42.0-52.0); HEMOGLOBIN 12.2 G/DL (14.2-18.0); INR 1.2 (0.9-1.1); LYMPHOCYTES % (AUTO) 19.9 % (20.0-45.0); MEAN CORPUSCULAR VOLUME 90 FL (80-99); MONOCYTES % (AUTO) 10.5 % (1.0-10.0); NEUTROPHILS % (AUTO) 66.3 % (45.0-75.0); PLATELET COUNT 161 K/UL (150-450); RED BLOOD COUNT 4.25 M/UL (4.70-6.10); RED CELL DISTRIBUTION WIDTH 18.6 % (11.6-14.8); WHITE BLOOD COUNT 6.5 K/UL (4.8-10.8)
--- NOTE | 2018-11-02 08:03 | Urology Progress Note ---
Assessment/Plan Status: unchanged Assessment/Plan: 1. Urinary retention with chronic suprapubic tube. 2. Neurogenic bladder. 3. Hydronephrosis, which appears to be chronic. 4. Nephrolithiasis. 5. Cystitis. 6. Hematuria. 7. Probable colonized urine. 8. Sepsis. monitor clinically keep SP tube, last exchanged 10/24 hand irrigated and do PRN abx as ordered f/u on final blood cx consider nuclear renal scan Subjective Allergies: Coded Allergies: SULFAMETHOXAZOLE (Verified Allergy, Unknown, 10/18/17) TRIMETHOPRIM (Verified Allergy, Unknown, 10/18/17) Subjective looks comfortable Objective Last 24 Hour Vital Signs Date Time Temp Pulse Resp B/P (MAP) Pulse Ox O2 Delivery O2 Flow Rate FiO2 11/02/18 07:00 98 Trach Collar 6.0 28 11/02/18 06:38 108 112/69 11/02/18 04:00 108 11/02/18 04:00 98.1 108 17 111/66 (81) 98 11/02/18 01:25 97 Trach Collar 6.0 28 11/02/18 00:00 98.4 109 16 110/68 (82) 97 11/02/18 00:00 109 11/01/18 22:08 117 114/73 11/01/18 21:00 Trach Collar 11/01/18 20:14 96 Trach Collar 6.0 28 11/01/18 20:00 123 11/01/18 20:00 98.2 123 18 112/70 (84) 96 11/01/18 16:00 111 11/01/18 16:00 97.7 75 20 102/64 (77) 98 11/01/18 14:28 118 114/76 11/01/18 12:40 97 Trach Collar 6.0 28 11/01/18 12:00 108 11/01/18 12:00 98.2 109 18 105/64 (78) 98 11/01/18 09:00 Trach Collar Intake and Output 11/01/18 11/02/18 19:00 07:00 Output Total 300 ml 1000 ml Balance -300 ml -1000 ml Output Urine Total 300 ml 1000 ml # Voids 2 # Bowel Movements 1 Microbiology Date/Time Source Procedure Growth Status 10/31/18 13:30 Blood Blood Culture - Preliminary NO GROWTH AFTER 24 HOURS Resulted 10/31/18 21:30 Sputum Gram Stain - Final Resulted 10/31/18 21:30 Sputum Culture - Preliminary Gram Negative Bacillus 1 Usual Respiratory Nataly Resulted 10/28/18 13:40 Rectum VRE Culture - Final Enterococcus Faecalis - Vre Complete 10/28/18 13:40 Rectum - Final NO CARBAPENEM-RESISTANT ENTEROBACTERI... Complete Current Medications Medications (Trade) Dose Ordered Sig/Vicenta Route PRN Reason Start Time Stop Time Status Last Admin Dose Admin Acetaminophen (Tylenol) 650 mg Q4H PRN ORAL fever 10/29/18 12:30 11/27/18 12:29 Acetaminophen (Tylenol) 650 mg Q4H PRN RECTAL Mild Pain (Pain Scale 1-3) 10/29/18 14:45 11/28/18 10:44 Cefepime HCl 1 gm/ Dextrose 55 ml @ 110 mls/hr EVERY 12 HOURS IVPB 10/29/18 21:00 11/05/18 20:59 11/01/18 22:15 Chlorhexidine Gluconate (Caitlyn-Hex 2%) 1 applic DAILY@2000 TOPIC 10/29/18 20:00 11/28/18 19:59 11/01/18 20:45 Dextrose (Dextrose 50%) 25 ml Q30M PRN IV Hypoglycemia 10/29/18 12:30 11/27/18 14:29 Dextrose (Dextrose 50%) 50 ml Q30M PRN IV Hypoglycemia 10/29/18 12:30 11/27/18 14:29 Dextrose/ Electrolytes 1,000 ml @ 50 mls/hr Q20H IV 10/31/18 16:00 11/30/18 15:59 11/01/18 12:45 Gabapentin (Neurontin) 600 mg Q6HR GT 10/29/18 12:00 11/27/18 17:59 Heparin Sodium (Porcine) (Heparin 5000 units/ml) 5,000 units EVERY 12 HOURS SUBQ 10/29/18 21:00 11/27/18 20:59 Levetiracetam 100 ml @ 400 mls/hr Q12HR IVPB 10/31/18 21:00 11/30/18 20:59 11/01/18 21:16 Lorazepam (Ativan 2mg/ml 1ml) 1 mg Q4H PRN IV agitation 10/29/18 12:30 11/04/18 12:29 Metoclopramide HCl (Reglan) 10 mg Q6H PRN IVP severe nausea 10/29/18 12:30 11/27/18 12:29 Metoprolol Tartrate (Lopressor) 5 mg Q8HR IVP 10/31/18 22:00 11/30/18 21:59 11/02/18 06:38 Mineral Oil (Fleet's Mineral Oil Enema) 133 ml EVERY OTHER DAY RECTAL 10/31/18 09:00 11/30/18 08:59 Morphine Sulfate (Morphine Sulfate) 2 mg Q4H PRN IVP severe Pain (Pain Scale 7-10) 10/29/18 12:30 11/04/18 12:29 10/31/18 17:49 Nitroglycerin (Ntg) 0.4 mg Q5M X 3 DOSES PRN SL Prn Chest Pain 10/29/18 12:00 11/27/18 14:29 Pantoprazole (Protonix) 40 mg DAILY IV 10/30/18 09:00 11/28/18 08:59 11/01/18 09:29 Polyethylene Glycol (Miralax) 17 gm HSPRN PRN ORAL Constipation 10/29/18 14:30 11/27/18 14:29 Temazepam (Restoril) 15 mg HSPRN PRN ORAL Insomnia 10/29/18 12:30 11/04/18 12:29 Vancomycin HCl (Vanco rx to dose) 1 ea DAILY PRN MISC Per rx protocol 10/29/18 19:30 11/28/18 19:29 Vancomycin HCl 1 gm/Dextrose 275 ml @ 183.708 mls/hr Q12HR@1000,2200 IVPB 10/31/18 22:00 11/05/18 21:59 11/01/18 23:41 Laboratory Tests 11/02/18 06:15: White Blood Count [Pending], Red Blood Count [Pending], Hemoglobin [Pending], Hematocrit [Pending], Mean Corpuscular Volume [Pending], Mean Corpuscular Hemoglobin [Pending], Mean Corpuscular Hemoglobin Concent [Pending], Red Cell Distribution Width [Pending], Platelet Count [Pending], Mean Platelet Volume [ Pending], Neutrophils (%) (Auto) [Pending], Lymphocytes (%) (Auto) [Pending], Monocytes (%) (Auto) [Pending], Eosinophils (%) (Auto) [Pending], Basophils (%) (Auto) [Pending], Prothrombin Time [Pending], Prothromb Time International Ratio [Pending], Activated Partial Thromboplast Time [Pending], Sodium Level [ Pending], Potassium Level [Pending], Chloride Level [Pending], Carbon Dioxide Level [Pending], Blood Urea Nitrogen [Pending], Creatinine [Pending], Estimat Glomerular Filtration Rate [Pending], Glucose Level [Pending], Calcium Level [ Pending] Height (Feet): 5 Height (Inches): 5.00 Weight (Pounds): 188 Objective exam stable SP tube in place, urine is blood tinged Ascencion Palomino MD Nov 02, 2018 08:03
[2018-11-02 08:04] LABS: ANION GAP 10 mmol/L (5-15); BLOOD UREA NITROGEN 10 mg/dL (7-18); CALCIUM 8.5 MG/DL (8.5-10.1); CARBON DIOXIDE 25 MMOL/L (21-32); CHLORIDE 105 MMOL/L (98-107); CREATININE 0.5 MG/DL (0.55-1.30); POTASSIUM 3.1 MMOL/L (3.5-5.1); SODIUM 140 MMOL/L (136-145)
--- NOTE | 2018-11-02 08:13 | NUR ---
NURSE NOTES: Received report from OPAL Mcclain. The patient is scheduled for the procedure today. The patient's bed in the lowest position, call light in reach, and fall, aspiration, and seizure precaution reinforced. PICC line site is intact and patent. Will continue plan of care.
--- NOTE | 2018-11-02 08:32 | NUR ---
NURSE NOTES: Notified Dr. Ko regarding potassium level of 3.1. Will continue to monitor the patient. Will carry out the order as soon as receives it.
[2018-11-02] MEDS: Heparin 5000 units/ml inj SUBQ SCH ×2 (09:00→20:45)
[2018-11-02] MEDS: Fleet's Mineral Oil Enema RECTAL SCH (09:00)
--- NOTE | 2018-11-02 09:08 | Cardiac Electrophysiology PN ---
Subjective Subjective [id number] Objective Last 24 Hour Vital Signs Date Time Temp Pulse Resp B/P (MAP) Pulse Ox O2 Delivery O2 Flow Rate FiO2 11/02/18 08:00 97.2 117 17 108/79 (89) 99 11/02/18 07:00 98 Trach Collar 6.0 28 11/02/18 06:38 108 112/69 11/02/18 04:00 108 11/02/18 04:00 98.1 108 17 111/66 (81) 98 11/02/18 01:25 97 Trach Collar 6.0 28 11/02/18 00:00 98.4 109 16 110/68 (82) 97 11/02/18 00:00 109 11/01/18 22:08 117 114/73 11/01/18 21:00 Trach Collar 11/01/18 20:14 96 Trach Collar 6.0 28 11/01/18 20:00 123 11/01/18 20:00 98.2 123 18 112/70 (84) 96 11/01/18 16:00 111 11/01/18 16:00 97.7 75 20 102/64 (77) 98 11/01/18 14:28 118 114/76 11/01/18 12:40 97 Trach Collar 6.0 28 11/01/18 12:00 108 11/01/18 12:00 98.2 109 18 105/64 (78) 98 Intake and Output 11/01/18 11/02/18 19:00 07:00 Output Total 300 ml 1000 ml Balance -300 ml -1000 ml Output Urine Total 300 ml 1000 ml # Voids 2 # Bowel Movements 1 Laboratory Tests Test 11/02/18 06:15 White Blood Count 6.5 K/UL (4.8-10.8) Red Blood Count 4.25 M/UL (4.70-6.10) L Hemoglobin 12.2 G/DL (14.2-18.0) L Hematocrit 38.2 % (42.0-52.0) L Mean Corpuscular Volume 90 FL (80-99) Mean Corpuscular Hemoglobin 28.7 PG (27.0-31.0) Mean Corpuscular Hemoglobin Concent 31.9 G/DL (32.0-36.0) L Red Cell Distribution Width 18.6 % (11.6-14.8) H Platelet Count 161 K/UL (150-450) Mean Platelet Volume 5.9 FL (6.5-10.1) L Neutrophils (%) (Auto) 66.3 % (45.0-75.0) Lymphocytes (%) (Auto) 19.9 % (20.0-45.0) L Monocytes (%) (Auto) 10.5 % (1.0-10.0) H Eosinophils (%) (Auto) 2.5 % (0.0-3.0) Basophils (%) (Auto) 0.8 % (0.0-2.0) Prothrombin Time 12.3 SEC (9.30-11.50) H Prothromb Time International Ratio 1.2 (0.9-1.1) H Activated Partial Thromboplast Time 30 SEC (23-33) Sodium Level 140 MMOL/L (136-145) Potassium Level 3.1 MMOL/L (3.5-5.1) L Chloride Level 105 MMOL/L (98-107) Carbon Dioxide Level 25 MMOL/L (21-32) Anion Gap 10 mmol/L (5-15) Blood Urea Nitrogen 10 mg/dL (7-18) Creatinine 0.5 MG/DL (0.55-1.30) L Estimat Glomerular Filtration Rate > 60 mL/min (>60) Glucose Level 83 MG/DL (74-106) Calcium Level 8.5 MG/DL (8.5-10.1) Microbiology Date/Time Source Procedure Growth Status 10/31/18 13:30 Blood Blood Culture - Preliminary NO GROWTH AFTER 24 HOURS Resulted 10/31/18 13:15 Blood Blood Culture - Preliminary NO GROWTH AFTER 24 HOURS Resulted 10/31/18 21:30 Sputum Gram Stain - Final Resulted 10/31/18 21:30 Sputum Culture - Preliminary Gram Negative Bacillus 1 Usual Respiratory Nataly Resulted Rai Dobbs MD Nov 02, 2018 09:08
[2018-11-02] MEDS: D5 1/2NS w/KCl 40meq 1000ml 1,000 ML IV SCH (09:11)
[2018-11-02] MEDS: levETIRAcetam 500mg/NS100ml 100 ML IVPB SCH ×2 (09:13→20:45)
[2018-11-02] MEDS: Pantoprazole Inj IV SCH (09:13)
[2018-11-02] MEDS: Cefepime HCl 1 GM in D5W 55 ML IVPB SCH ×2 (09:14→20:46)
[2018-11-02 10:15] LABS: PHOSPHORUS 2.3 MG/DL (2.5-4.9)
[2018-11-02] MEDS: Vancomycin 1gm/D5W 275ml IVPB SCH ×2 (10:31)
--- NOTE | 2018-11-02 11:16 | Pulmonology Progress Note ---
Assessment/Plan Problems: (1) Seizures (2) Sepsis (3) Chronic respiratory failure (4) Malfunction of gastrostomy tube Assessment/Plan still tachy hydronephrosis tachycardia most likely secondary to sepsis ID consult called. GI f/u KUB ordered stat Subjective ROS Limited/Unobtainable: Yes Constitutional: Reports: no symptoms Respiratory: Reports: no symptoms Cardiovascular: Reports: no symptoms Allergies: Coded Allergies: SULFAMETHOXAZOLE (Verified Allergy, Unknown, 10/18/17) TRIMETHOPRIM (Verified Allergy, Unknown, 10/18/17) Objective Last 24 Hour Vital Signs Date Time Temp Pulse Resp B/P (MAP) Pulse Ox O2 Delivery O2 Flow Rate FiO2 11/02/18 08:00 97.2 117 17 108/79 (89) 99 11/02/18 07:00 98 Trach Collar 6.0 28 11/02/18 06:38 108 112/69 11/02/18 04:00 108 11/02/18 04:00 98.1 108 17 111/66 (81) 98 11/02/18 01:25 97 Trach Collar 6.0 28 11/02/18 00:00 98.4 109 16 110/68 (82) 97 11/02/18 00:00 109 11/01/18 22:08 117 114/73 11/01/18 21:00 Trach Collar 11/01/18 20:14 96 Trach Collar 6.0 28 11/01/18 20:00 123 11/01/18 20:00 98.2 123 18 112/70 (84) 96 11/01/18 16:00 111 11/01/18 16:00 97.7 75 20 102/64 (77) 98 11/01/18 14:28 118 114/76 11/01/18 12:40 97 Trach Collar 6.0 28 11/01/18 12:00 108 11/01/18 12:00 98.2 109 18 105/64 (78) 98 Intake and Output 11/01/18 11/02/18 19:00 07:00 Output Total 300 ml 1000 ml Balance -300 ml -1000 ml Output Urine Total 300 ml 1000 ml # Voids 2 # Bowel Movements 1 General Appearance: WD/WN HEENT: normocephalic, atraumatic Respiratory/Chest: chest wall non-tender, lungs clear Cardiovascular: normal peripheral pulses, regular rhythm Abdomen: normal bowel sounds, soft, non tender, no scars 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 normal Microbiology Date/Time Source Procedure Growth Status 10/31/18 13:30 Blood Blood Culture - Preliminary NO GROWTH AFTER 24 HOURS Resulted 10/31/18 13:15 Blood Blood Culture - Preliminary NO GROWTH AFTER 24 HOURS Resulted 10/31/18 21:30 Sputum Gram Stain - Final Resulted 10/31/18 21:30 Sputum Culture - Preliminary Gram Negative Bacillus 1 Usual Respiratory Nataly Resulted 11/01/18 03:00 Abdomen Gram Stain Pending Resulted 11/01/18 03:00 Wound Culture - Preliminary Gram Negative Bacillus 1 Resulted Laboratory Tests 11/02/18 06:15: White Blood Count 6.5, Red Blood Count 4.25L, Hemoglobin 12.2L, Hematocrit 38.2L , Mean Corpuscular Volume 90, Mean Corpuscular Hemoglobin 28.7, Mean Corpuscular Hemoglobin Concent 31.9L, Red Cell Distribution Width 18.6H, Platelet Count 161, Mean Platelet Volume 5.9L, Neutrophils (%) (Auto) 66.3, Lymphocytes (%) (Auto) 19.9L, Monocytes (%) (Auto) 10.5H, Eosinophils (%) (Auto ) 2.5, Basophils (%) (Auto) 0.8, Prothrombin Time 12.3H, Prothromb Time International Ratio 1.2H, Activated Partial Thromboplast Time 30, Sodium Level 140, Potassium Level 3.1L, Chloride Level 105, Carbon Dioxide Level 25, Anion Gap 10, Blood Urea Nitrogen 10, Creatinine 0.5L, Estimat Glomerular Filtration Rate > 60, Glucose Level 83, Calcium Level 8.5, Phosphorus Level 2.3L, Magnesium Level 1.6L 11/02/18 10:00: Vancomycin Level Trough 13.6H Current Medications Medications (Trade) Dose Ordered Sig/Vicenta Route PRN Reason Start Time Stop Time Status Last Admin Dose Admin Acetaminophen (Tylenol) 650 mg Q4H PRN ORAL fever 10/29/18 12:30 11/27/18 12:29 Acetaminophen (Tylenol) 650 mg Q4H PRN RECTAL Mild Pain (Pain Scale 1-3) 10/29/18 14:45 11/28/18 10:44 Cefepime HCl 1 gm/ Dextrose 55 ml @ 110 mls/hr EVERY 12 HOURS IVPB 10/29/18 21:00 11/05/18 20:59 11/02/18 09:14 Chlorhexidine Gluconate (Caitlyn-Hex 2%) 1 applic DAILY@2000 TOPIC 10/29/18 20:00 11/28/18 19:59 11/01/18 20:45 Dextrose (Dextrose 50%) 25 ml Q30M PRN IV Hypoglycemia 10/29/18 12:30 11/27/18 14:29 Dextrose (Dextrose 50%) 50 ml Q30M PRN IV Hypoglycemia 10/29/18 12:30 11/27/18 14:29 Dextrose/ Electrolytes 1,000 ml @ 50 mls/hr Q20H IV 10/31/18 16:00 11/30/18 15:59 11/02/18 09:11 Gabapentin (Neurontin) 600 mg Q6HR GT 10/29/18 12:00 11/27/18 17:59 Heparin Sodium (Porcine) (Heparin 5000 units/ml) 5,000 units EVERY 12 HOURS SUBQ 10/29/18 21:00 11/27/18 20:59 Levetiracetam 100 ml @ 400 mls/hr Q12HR IVPB 10/31/18 21:00 11/30/18 20:59 11/02/18 09:13 Lorazepam (Ativan 2mg/ml 1ml) 1 mg Q4H PRN IV agitation 10/29/18 12:30 11/04/18 12:29 Metoclopramide HCl (Reglan) 10 mg Q6H PRN IVP severe nausea 10/29/18 12:30 11/27/18 12:29 Metoprolol Tartrate (Lopressor) 5 mg Q8HR IVP 10/31/18 22:00 11/30/18 21:59 11/02/18 06:38 Mineral Oil (Fleet's Mineral Oil Enema) 133 ml EVERY OTHER DAY RECTAL 10/31/18 09:00 11/30/18 08:59 Morphine Sulfate (Morphine Sulfate) 2 mg Q4H PRN IVP severe Pain (Pain Scale 7-10) 10/29/18 12:30 11/04/18 12:29 10/31/18 17:49 Nitroglycerin (Ntg) 0.4 mg Q5M X 3 DOSES PRN SL Prn Chest Pain 10/29/18 12:00 11/27/18 14:29 Pantoprazole (Protonix) 40 mg DAILY IV 10/30/18 09:00 11/28/18 08:59 11/02/18 09:13 Polyethylene Glycol (Miralax) 17 gm HSPRN PRN ORAL Constipation 10/29/18 14:30 11/27/18 14:29 Potassium Chloride 100 ml @ 100 mls/hr Q1HR IVPB 11/02/18 10:00 11/02/18 15:59 11/02/18 10:31 Temazepam (Restoril) 15 mg HSPRN PRN ORAL Insomnia 10/29/18 12:30 11/04/18 12:29 Vancomycin HCl (Vanco rx to dose) 1 ea DAILY PRN MISC Per rx protocol 10/29/18 19:30 11/28/18 19:29 Vancomycin HCl 1 gm/Dextrose 275 ml @ 183.708 mls/hr Q12HR@1000,2200 IVPB 10/31/18 22:00 11/05/18 21:59 11/02/18 10:31 Mellissa Garcia MD Nov 02, 2018 11:16
--- NOTE | 2018-11-02 11:50 | Consultation ---
History of Present Illness General Chief Complaint: Malfunctioning Gastric Tube Referring physician: MARIAMA SANCHEZ Reason for Consultation: MALFUNCTIONING GJ TUBE Present Illness HPI This is a 57-year-old male well-known to me from prior admissions at an outside facility. I have taking care of Mr. Christian at [facility] for many weeks in regards to his feeding tube. He currently presents to [facility] with concerns of malfunctioning gastric tube which has been replaced since I have last seen him and has been admitted for some time now and I am being called to evaluate for G-tube site cellulitis. Ms. Jenkins initially presented to outside facility with extensively large perigastric tube cellulitis which was red indurated tender and nearing breakdown. At that time no alternative feeding tube was available given the wound site and G-tube was removed and patient was placed on TPN. Podocyte seen and he was on TPN for approximately 5 to 6 weeks and the wound had significantly improved. Initial issue and contributing factor to the wound was that patient's G-tube site open significantly and he had significant leakage causing breakdown. Since that discharge he has a new tube placed and is off TPN now I am not sure where this was done but now is developing periwound cellulitis again. Allergies: Coded Allergies: SULFAMETHOXAZOLE (Verified Allergy, Unknown, 10/18/17) TRIMETHOPRIM (Verified Allergy, Unknown, 10/18/17) Medication History Scheduled Ascorbic Acid* (Vitamin C*), 500 MG GT DAILY, (Reported) Aspirin* (Aspirin*), 81 MG GT DAILY, (Reported) Atorvastatin Calcium* (Lipitor*), 10 MG GT BEDTIME, (Reported) Chlorhexidine Gluconate* (Hibiclens*), 15 ML ORAL BID, (Reported) Cholecalciferol (Vitamin D3)* (Vitamin D*), 5,000 UNIT GT DAILY, (Reported) Cran/Vitc/Mannose/Inulin/Brom (Uti-Stat Liquid), 3,875 MG GT BID, (Reported) Docusate Sodium* (Colace*), 100 MG GT DAILY, (Reported) Famotidine (Famotidine), 20 MG GT TWICE A DAY, (Reported) Ferrous Sulfate (Ferrous Sulfate), 7.5 ML GT DAILY, (Reported) Gabapentin* (Gabapentin*), 600 MG ORAL Q6HR, (Reported) Levetiracetam* (Levetiracetam*), 500 MG GT TID, (Reported) Levothyroxine Sodium* (Levothyroxine Sodium*), 125 MCG GT DAILY, (Reported) Multivit &Minerals/Ferrous Fum (Multivitamin Liquid), 5 ML GT DAILY, (Reported) Scheduled PRN Acetaminophen* (Acetaminophen 325MG Tablet*), 650 MG GT Q4H PRN for Mild Pain/ Temp > 100.5, (Reported) Bisacodyl (Dulcolax), 10 MG RC PRN PRN for CONSTIPATION IF MOM INEFFECTIV, ( Reported) Dextran 70/Hypromellose (Artificial Tears Eye Drops*), 1 DROP BOTH EYES Q6HR PRN for Dry Eyes, (Reported) Hydrocodone Bit/Acetaminophen 5-325* ([place] 5-325*), 1 TAB GT Q12HR PRN for Moderate Pain (Pain Scale 4-6), (Reported) Ipratropium/Albuterol Sulfate (DuoNeb 0.5-3(2.5)mg/3ml), 3 ML HHN Q3HR PRN for Shortness of Breath, (Reported) Magnesium Hydroxide* (Milk Of Magnesia*), 30 ML GT DAILY PRN for Constipation, ( Reported) Na Phos,M-B/Na Phos,Di-Ba* (Fleet Enema*), 133 ML RECTAL DAILY PRN for Constipation, (Reported) Patient History Limited by: medical condition History Provided By: Medical Record, PMD Healthcare decision maker SELF Resuscitation status Full Code Advanced Directive on File No Past Medical/Surgical History Past Medical/Surgical History: (1) Hypokalemia (2) Malfunction of gastrostomy tube (3) Malfunction of jejunostomy tube (4) Chronic respiratory failure (5) Seizures (6) Sepsis Review of Systems All Other Systems: negative except mentioned in HPI ROS Narrative Patient unable to respond given nonverbal Physical Exam General Appearance: no apparent distress Lines, tubes and drains: peripheral HEENT: mucous membranes moist Neck: normal inspection Respiratory/Chest: no respiratory distress, decreased breath sounds Cardiovascular/Chest: regular rhythm Abdomen: soft, no organomegaly, no mass, feeding tube, other Extremities: other Skin Exam: warm/dry Neurologic: alert, responsive Last 24 Hour Vital Signs Date Time Temp Pulse Resp B/P (MAP) Pulse Ox O2 Delivery O2 Flow Rate FiO2 8/12/19 08:00 97.2 117 17 108/79 (89) 99 11/02/18 07:00 98 Trach Collar 6.0 28 11/02/18 06:38 108 112/69 11/02/18 04:00 108 11/02/18 04:00 98.1 108 17 111/66 (81) 98 11/02/18 01:25 97 Trach Collar 6.0 28 11/02/18 00:00 98.4 109 16 110/68 (82) 97 11/02/18 00:00 109 11/01/18 22:08 117 114/73 11/01/18 21:00 Trach Collar 11/01/18 20:14 96 Trach Collar 6.0 28 11/01/18 20:00 123 11/01/18 20:00 98.2 123 18 112/70 (84) 96 11/01/18 16:00 111 11/01/18 16:00 97.7 75 20 102/64 (77) 98 11/01/18 14:28 118 114/76 11/01/18 12:40 97 Trach Collar 6.0 28 11/01/18 12:00 108 11/01/18 12:00 98.2 109 18 105/64 (78) 98 Intake and Output 11/01/18 11/02/18 19:00 07:00 Output Total 300 ml 1000 ml Balance -300 ml -1000 ml Output Urine Total 300 ml 1000 ml # Voids 2 # Bowel Movements 1 Laboratory Tests Test 11/02/18 06:15 11/02/18 10:00 White Blood Count 6.5 K/UL (4.8-10.8) Red Blood Count 4.25 M/UL (4.70-6.10) L Hemoglobin 12.2 G/DL (14.2-18.0) L Hematocrit 38.2 % (42.0-52.0) L Mean Corpuscular Volume 90 FL (80-99) Mean Corpuscular Hemoglobin 28.7 PG (27.0-31.0) Mean Corpuscular Hemoglobin Concent 31.9 G/DL (32.0-36.0) L Red Cell Distribution Width 18.6 % (11.6-14.8) H Platelet Count 161 K/UL (150-450) Mean Platelet Volume 5.9 FL (6.5-10.1) L Neutrophils (%) (Auto) 66.3 % (45.0-75.0) Lymphocytes (%) (Auto) 19.9 % (20.0-45.0) L Monocytes (%) (Auto) 10.5 % (1.0-10.0) H Eosinophils (%) (Auto) 2.5 % (0.0-3.0) Basophils (%) (Auto) 0.8 % (0.0-2.0) Prothrombin Time 12.3 SEC (9.30-11.50) H Prothromb Time International Ratio 1.2 (0.9-1.1) H Activated Partial Thromboplast Time 30 SEC (23-33) Sodium Level 140 MMOL/L (136-145) Potassium Level 3.1 MMOL/L (3.5-5.1) L Chloride Level 105 MMOL/L (98-107) Carbon Dioxide Level 25 MMOL/L (21-32) Anion Gap 10 mmol/L (5-15) Blood Urea Nitrogen 10 mg/dL (7-18) Creatinine 0.5 MG/DL (0.55-1.30) L Estimat Glomerular Filtration Rate > 60 mL/min (>60) Glucose Level 83 MG/DL (74-106) Calcium Level 8.5 MG/DL (8.5-10.1) Phosphorus Level 2.3 MG/DL (2.5-4.9) L Magnesium Level 1.6 MG/DL (1.8-2.4) L Vancomycin Level Trough 13.6 ug/mL (5.0-12.0) H Height (Feet): 5 Height (Inches): 4.00 Weight (Pounds): 187 Medications Current Medications Medications (Trade) Dose Ordered Sig/Vicenta Route PRN Reason Start Time Stop Time Status Last Admin Dose Admin Acetaminophen (Tylenol) 650 mg Q4H PRN ORAL fever 10/29/18 12:30 11/27/18 12:29 Acetaminophen (Tylenol) 650 mg Q4H PRN RECTAL Mild Pain (Pain Scale 1-3) 10/29/18 14:45 11/28/18 10:44 Cefepime HCl 1 gm/ Dextrose 55 ml @ 110 mls/hr EVERY 12 HOURS IVPB 10/29/18 21:00 11/05/18 20:59 8/12/19 09:14 Chlorhexidine Gluconate (Caitlyn-Hex 2%) 1 applic DAILY@2000 TOPIC 10/29/18 20:00 11/28/18 19:59 11/01/18 20:45 Dextrose (Dextrose 50%) 25 ml Q30M PRN IV Hypoglycemia 10/29/18 12:30 11/27/18 14:29 Dextrose (Dextrose 50%) 50 ml Q30M PRN IV Hypoglycemia 10/29/18 12:30 11/27/18 14:29 Dextrose/ Electrolytes 1,000 ml @ 50 mls/hr Q20H IV 10/31/18 16:00 11/30/18 15:59 11/02/18 09:11 Gabapentin (Neurontin) 600 mg Q6HR GT 10/29/18 12:00 11/27/18 17:59 Heparin Sodium (Porcine) (Heparin 5000 units/ml) 5,000 units EVERY 12 HOURS SUBQ 10/29/18 21:00 11/27/18 20:59 Levetiracetam 100 ml @ 400 mls/hr Q12HR IVPB 10/31/18 21:00 11/30/18 20:59 11/02/18 09:13 Lorazepam (Ativan 2mg/ml 1ml) 1 mg Q4H PRN IV agitation 10/29/18 12:30 11/04/18 12:29 Metoclopramide HCl (Reglan) 10 mg Q6H PRN IVP severe nausea 10/29/18 12:30 11/27/18 12:29 Metoprolol Tartrate (Lopressor) 5 mg Q8HR IVP 10/31/18 22:00 11/30/18 21:59 11/02/18 06:38 Mineral Oil (Fleet's Mineral Oil Enema) 133 ml EVERY OTHER DAY RECTAL 10/31/18 09:00 11/30/18 08:59 Morphine Sulfate (Morphine Sulfate) 2 mg Q4H PRN IVP severe Pain (Pain Scale 7-10) 10/29/18 12:30 11/04/18 12:29 10/31/18 17:49 Nitroglycerin (Ntg) 0.4 mg Q5M X 3 DOSES PRN SL Prn Chest Pain 10/29/18 12:00 9/6/19 14:29 Pantoprazole (Protonix) 40 mg DAILY IV 10/30/18 09:00 11/28/18 08:59 11/02/18 09:13 Polyethylene Glycol (Miralax) 17 gm HSPRN PRN ORAL Constipation 10/29/18 14:30 11/27/18 14:29 Potassium Chloride 100 ml @ 100 mls/hr Q1HR IVPB 11/02/18 10:00 11/02/18 15:59 11/02/18 10:31 Temazepam (Restoril) 15 mg HSPRN PRN ORAL Insomnia 10/29/18 12:30 11/04/18 12:29 Vancomycin HCl (Vanco rx to dose) 1 ea DAILY PRN MISC Per rx protocol 10/29/18 19:30 11/28/18 19:29 Vancomycin HCl 1 gm/Dextrose 275 ml @ 183.708 mls/hr Q12HR@1000,2200 IVPB 10/31/18 22:00 11/05/18 21:59 11/02/18 10:31 Assessment/Plan Problem List: (1) Malfunction of gastrostomy tube Assessment & Plan: This is a 57-year-old male with malfunctioning G-tube in. G -tube cellulitis. I taken care of this patient for a long period of time and trying to help resolve this. This is actually the best it has looked and prior was significantly worse. I anticipated he would stay on TPN while the G-tube site completely closed with plans for a new G-tube placement in the future in a completely different site. Unfortunately seems that a G-tube is been placed into his prior closing site now is developing cellulitis around it again. For now given that its improved and not leaking significantly potentially cellulitis can improve and will continue with localized wound care. Apply zinc oxide around the tube and continue with tube use. Nutritional optimization is keys here. We will follow with recommendations. Thank you for allowing me to participate in patient's care ICD Codes: K94.23 - Gastrostomy malfunction SNOMED: [id number] (2) Malfunction of jejunostomy tube ICD Codes: K94.13 - Enterostomy malfunction SNOMED: [id number], [id number] Robert Gomez Nov 02, 2018 11:50
--- NOTE | 2018-11-02 12:06 | Nephrology Progress Note ---
Assessment/Plan Problem List: (1) Hypokalemia (2) Malfunction of gastrostomy tube (3) Malfunction of jejunostomy tube (4) Seizures Assessment Sever hypokalemia Low mag other conditions; 1. JG tube malfunction and leaks. 2. Respiratory failure. 3. Seizure disorder. 4. Chronic obstructive pulmonary disease. 5. Gastroesophageal reflux disease. 6. Neurogenic bladder. 7. Hypothyroidism. 8. Quadriplegia. 9. Tracheostomy in situ. 10.Thrombocytopenia. Plan Vigorous K supplement IV waiting for GT functionality ! ( Per GI) Monitor lytes and renal parameters per orders Subjective ROS Limited/Unobtainable: Yes Objective Objective Last 24 Hour Vital Signs Date Time Temp Pulse Resp B/P (MAP) Pulse Ox O2 Delivery O2 Flow Rate FiO2 11/02/18 08:00 97.2 117 17 108/79 (89) 99 11/02/18 07:00 98 Trach Collar 6.0 28 11/02/18 06:38 108 112/69 11/02/18 04:00 108 11/02/18 04:00 98.1 108 17 111/66 (81) 98 11/02/18 01:25 97 Trach Collar 6.0 28 11/02/18 00:00 98.4 109 16 110/68 (82) 97 11/02/18 00:00 109 11/01/18 22:08 117 114/73 11/01/18 21:00 Trach Collar 11/01/18 20:14 96 Trach Collar 6.0 28 11/01/18 20:00 123 11/01/18 20:00 98.2 123 18 112/70 (84) 96 11/01/18 16:00 111 11/01/18 16:00 97.7 75 20 102/64 (77) 98 11/01/18 14:28 118 114/76 11/01/18 12:40 97 Trach Collar 6.0 28 Intake and Output 11/01/18 11/02/18 19:00 07:00 Output Total 300 ml 1000 ml Balance -300 ml -1000 ml Output Urine Total 300 ml 1000 ml # Voids 2 # Bowel Movements 1 Laboratory Tests 11/02/18 06:15: White Blood Count 6.5, Red Blood Count 4.25L, Hemoglobin 12.2L, Hematocrit 38.2L , Mean Corpuscular Volume 90, Mean Corpuscular Hemoglobin 28.7, Mean Corpuscular Hemoglobin Concent 31.9L, Red Cell Distribution Width 18.6H, Platelet Count 161, Mean Platelet Volume 5.9L, Neutrophils (%) (Auto) 66.3, Lymphocytes (%) (Auto) 19.9L, Monocytes (%) (Auto) 10.5H, Eosinophils (%) (Auto ) 2.5, Basophils (%) (Auto) 0.8, Prothrombin Time 12.3H, Prothromb Time International Ratio 1.2H, Activated Partial Thromboplast Time 30, Sodium Level 140, Potassium Level 3.1L, Chloride Level 105, Carbon Dioxide Level 25, Anion Gap 10, Blood Urea Nitrogen 10, Creatinine 0.5L, Estimat Glomerular Filtration Rate > 60, Glucose Level 83, Calcium Level 8.5, Phosphorus Level 2.3L, Magnesium Level 1.6L 11/02/18 10:00: Vancomycin Level Trough 13.6H Height (Feet): 5 Height (Inches): 4.00 Weight (Pounds): 187 EENT: other - trach to O2 tube Respiratory/Chest: decreased breath sounds Abdomen: distended Sudhakar Silverman MD Nov 02, 2018 12:06
--- NOTE | 2018-11-02 12:24 | Pre-Procedure Note/Attestation ---
Pre-Procedure Note/Attestation Complete Prior to Procedure Planned Procedure: not applicable Procedure Narrative: egd/peg Indications for Procedure Pre-Operative Diagnosis: dysphagia Attestation I attest that I discussed the nature of the procedure; its benefits; risks and complications; and alternatives (and the risks and benefits of such alternatives ), prior to the procedure, with the patient (or the patient's legal appeals representative). I attest that, if there was a reasonable possibility of needing a blood transfusion, the patient (or the patient's legal appeals representative) was given the [facility] standardized written summary, pursuant to the Bunny Molina Blood Safety Act ([place] Health and Safety Code # 1645, as amended). I attest that I re-evaluated the patient just prior to the surgery and that there has been no change in the patient's H&P, except as documented below: Kvng Lehman MD Nov 02, 2018 12:24
--- NOTE | 2018-11-02 12:27 | Infectious Diseases Prog Note ---
Assessment/Plan Assessment/Plan Abx: IV Vancomycin 10/29- Cefepime 10/29- Assessment: Sepsis 2ry to GNR bacteremia (suspect from urinary source given hydronephrosis and chronic suprapubic catheter; an U/a has not been done yet) -10/30 BCx 4/4 GNR; 10/31 BCx NTD -spc x GNR -CT abd/p: Thickening of the underdistended urinary bladder is concerning for cystitis. Consider correlation with urinalysis. Moderate bilateral hydroureteronephrosis. Moderate stool in the rectosigmoid colon is suggestive of constipation. Morphologic features of cirrhosis. Cholelithiasis. -CXR: Left hemidiaphragm is elevated but this appears stable. PICC line and tracheostomy noted. Cardiomegaly is stable. Bones are osteopenic. JT dislodgement and leakage w/ surrounding cellulitis -wound cx GNR Fever; SP No leukocytosis paraplegia neurogenic bladder COPD GERD seizure disorder s/p trach dysphagia s/p J tube placement 10/22/18 [place] resident Plan: -Continue empiric IV Vancomycin #5/5 for JT site cellulitis -Continue empiric Cefepime #4 gram neg ID and sensi BCx -10/29 SP Amikacin #1 and Flagyl #1 -f/u cx -Monitor CBC/CMP, temperatures -trach/JT care -GI f/u -aspiration precautions -u/a w/ reflex (re-ordered as previous order was not done; still to be collected ) -f/u repeat Bcx x2 -CXR Thank you for this consultation. Will continue to follow along with you. Discussed with RN. Subjective Allergies: Coded Allergies: SULFAMETHOXAZOLE (Verified Allergy, Unknown, 10/18/17) TRIMETHOPRIM (Verified Allergy, Unknown, 10/18/17) Subjective afebrile >36hrs no leukocytosis gram neg bacteremia Objective Vital Signs Last 24 Hour Vital Signs Date Time Temp Pulse Resp B/P (MAP) Pulse Ox O2 Delivery O2 Flow Rate FiO2 11/02/18 08:00 97.2 117 17 108/79 (89) 99 11/02/18 07:00 98 Trach Collar 6.0 28 11/02/18 06:38 108 112/69 11/02/18 04:00 108 11/02/18 04:00 98.1 108 17 111/66 (81) 98 8/12/19 01:25 97 Trach Collar 6.0 28 11/02/18 00:00 98.4 109 16 110/68 (82) 97 11/02/18 00:00 109 11/01/18 22:08 117 114/73 11/01/18 21:00 Trach Collar 11/01/18 20:14 96 Trach Collar 6.0 28 11/01/18 20:00 123 11/01/18 20:00 98.2 123 18 112/70 (84) 96 11/01/18 16:00 111 11/01/18 16:00 97.7 75 20 102/64 (77) 98 11/01/18 14:28 118 114/76 11/01/18 12:40 97 Trach Collar 6.0 28 Height (Feet): 5 Height (Inches): 4.00 Weight (Pounds): 187 Microbiology Date/Time Source Procedure Growth Status 10/31/18 13:30 Blood Blood Culture - Preliminary NO GROWTH AFTER 24 HOURS Resulted 10/31/18 13:15 Blood Blood Culture - Preliminary NO GROWTH AFTER 24 HOURS Resulted 10/31/18 21:30 Sputum Gram Stain - Final Resulted 10/31/18 21:30 Sputum Culture - Preliminary Gram Negative Bacillus 1 Usual Respiratory Nataly Resulted 11/01/18 03:00 Abdomen Gram Stain Pending Resulted 11/01/18 03:00 Wound Culture - Preliminary Gram Negative Bacillus 1 Resulted Laboratory Tests Test 11/02/18 06:15 11/02/18 10:00 White Blood Count 6.5 K/UL (4.8-10.8) Red Blood Count 4.25 M/UL (4.70-6.10) L Hemoglobin 12.2 G/DL (14.2-18.0) L Hematocrit 38.2 % (42.0-52.0) L Mean Corpuscular Volume 90 FL (80-99) Mean Corpuscular Hemoglobin 28.7 PG (27.0-31.0) Mean Corpuscular Hemoglobin Concent 31.9 G/DL (32.0-36.0) L Red Cell Distribution Width 18.6 % (11.6-14.8) H Platelet Count 161 K/UL (150-450) Mean Platelet Volume 5.9 FL (6.5-10.1) L Neutrophils (%) (Auto) 66.3 % (45.0-75.0) Lymphocytes (%) (Auto) 19.9 % (20.0-45.0) L Monocytes (%) (Auto) 10.5 % (1.0-10.0) H Eosinophils (%) (Auto) 2.5 % (0.0-3.0) Basophils (%) (Auto) 0.8 % (0.0-2.0) Prothrombin Time 12.3 SEC (9.30-11.50) H Prothromb Time International Ratio 1.2 (0.9-1.1) H Activated Partial Thromboplast Time 30 SEC (23-33) Sodium Level 140 MMOL/L (136-145) Potassium Level 3.1 MMOL/L (3.5-5.1) L Chloride Level 105 MMOL/L (98-107) Carbon Dioxide Level 25 MMOL/L (21-32) Anion Gap 10 mmol/L (5-15) Blood Urea Nitrogen 10 mg/dL (7-18) Creatinine 0.5 MG/DL (0.55-1.30) L Estimat Glomerular Filtration Rate > 60 mL/min (>60) Glucose Level 83 MG/DL (74-106) Calcium Level 8.5 MG/DL (8.5-10.1) Phosphorus Level 2.3 MG/DL (2.5-4.9) L Magnesium Level 1.6 MG/DL (1.8-2.4) L Vancomycin Level Trough 13.6 ug/mL (5.0-12.0) H Current Medications Medications (Trade) Dose Ordered Sig/Vicenta Route PRN Reason Start Time Stop Time Status Last Admin Dose Admin Acetaminophen (Tylenol) 650 mg Q4H PRN ORAL fever 10/29/18 12:30 11/27/18 12:29 Acetaminophen (Tylenol) 650 mg Q4H PRN RECTAL Mild Pain (Pain Scale 1-3) 10/29/18 14:45 11/28/18 10:44 Cefepime HCl 1 gm/ Dextrose 55 ml @ 110 mls/hr EVERY 12 HOURS IVPB 10/29/18 21:00 11/05/18 20:59 11/02/18 09:14 Chlorhexidine Gluconate (Caitlyn-Hex 2%) 1 applic DAILY@1999 TOPIC 10/29/18 20:00 11/28/18 19:59 11/01/18 20:45 Dextrose (Dextrose 50%) 25 ml Q30M PRN IV Hypoglycemia 10/29/18 12:30 11/27/18 14:29 Dextrose (Dextrose 50%) 50 ml Q30M PRN IV Hypoglycemia 10/29/18 12:30 11/27/18 14:29 Dextrose/ Electrolytes 1,000 ml @ 50 mls/hr Q20H IV 10/31/18 16:00 11/30/18 15:59 11/02/18 09:11 Gabapentin (Neurontin) 600 mg Q6HR GT 10/29/18 12:00 11/27/18 17:59 Heparin Sodium (Porcine) (Heparin 5000 units/ml) 5,000 units EVERY 12 HOURS SUBQ 10/29/18 21:00 11/27/18 20:59 Levetiracetam 100 ml @ 400 mls/hr Q12HR IVPB 10/31/18 21:00 11/30/18 20:59 11/02/18 09:13 Lorazepam (Ativan 2mg/ml 1ml) 1 mg Q4H PRN IV agitation 10/29/18 12:30 11/04/18 12:29 Magnesium Sulfate 100 ml @ 100 mls/hr Q1H IVPB 11/02/18 12:30 11/02/18 16:29 Metoclopramide HCl (Reglan) 10 mg Q6H PRN IVP severe nausea 10/29/18 12:30 11/27/18 12:29 Metoprolol Tartrate (Lopressor) 5 mg Q8HR IVP 10/31/18 22:00 11/30/18 21:59 11/02/18 06:38 Mineral Oil (Fleet's Mineral Oil Enema) 133 ml EVERY OTHER DAY RECTAL 10/31/18 09:00 11/30/18 08:59 Morphine Sulfate (Morphine Sulfate) 2 mg Q4H PRN IVP severe Pain (Pain Scale 7-10) 10/29/18 12:30 11/04/18 12:29 10/31/18 17:49 Nitroglycerin (Ntg) 0.4 mg Q5M X 3 DOSES PRN SL Prn Chest Pain 10/29/18 12:00 11/27/18 14:29 Pantoprazole (Protonix) 40 mg DAILY IV 10/30/18 09:00 11/28/18 08:59 11/02/18 09:13 Polyethylene Glycol (Miralax) 17 gm HSPRN PRN ORAL Constipation 10/29/18 14:30 11/27/18 14:29 Potassium Phosphate 30 mm/ Sodium Chloride 285 ml @ 47.5 mls/hr ONCE ONCE IV 11/02/18 13:30 11/02/18 19:29 Potassium Chloride 100 ml @ 100 mls/hr Q1HR IVPB 11/02/18 10:00 11/02/18 15:59 11/02/18 11:54 Temazepam (Restoril) 15 mg HSPRN PRN ORAL Insomnia 10/29/18 12:30 11/04/18 12:29 Vancomycin HCl (Vanco rx to dose) 1 ea DAILY PRN MISC Per rx protocol 10/29/18 19:30 11/28/18 19:29 Vancomycin HCl 1 gm/Dextrose 275 ml @ 183.708 mls/hr Q12HR@1000,2200 IVPB 10/31/18 22:00 11/05/18 21:59 11/02/18 10:31 Zinc Oxide (Zinc Oxide) 1 applic THREE TIMES A DAY PRN TOPIC around g tube site 11/02/18 13:00 12/02/18 12:59 Kimi Ramos M.D. Nov 02, 2018 12:27
--- NOTE | 2018-11-02 12:32 | Endoscopy Procedure Note ---
Endoscopy Procedure Note General Indication for Procedure: gib Procedures Performed: EGD Operative Findings/Diagnosis: gstric ulcer Specimen: yes Pt Tolerated Procedure Well: Yes Estimated Blood Loss: none Anesthesia Anesthesiologist: nacho Anesthesia: MAC Inserted Devices Implant(s) used?: No GI Core Measures 50 yrs or older w/o bx or poly: Not Applicable 10yrs. F/U recommended: Not Applicable Kvng Lehman MD Nov 02, 2018 12:32
[2018-11-02] MEDS ORDERED: Zinc Oxide Oint 2oz TOPIC PRN (13:00)
[2018-11-02] MEDS ORDERED: Propofol 200mg/20ml IV ONE (13:00)
[2018-11-02] MEDS ORDERED: Midazolam 2mg/2ml Inj ONE (13:00)
--- NOTE | 2018-11-02 13:02 | NUR ---
NURSE NOTES: The patient went down for the procedure. Pre-procedural checklist done, verified consent, PT/ PTT done, and off tele order initiated. Notified Dr. Silverman that the patient is off the floor and cannot administer KCL and Mg at this time. Will continue plan of care. Addendum: 11/02/18 at 1303 by Franky Cadet RN Time should be changed into 1230.
[2018-11-02] MEDS ORDERED: NS 500ML IVPB ONE (13:05)
--- NOTE | 2018-11-02 13:07 | Endoscopy Procedure Note ---
Endoscopy Procedure Note General Indication for Procedure: dysphagia Procedures Performed: EGD, jejunostomy tube Operative Findings/Diagnosis: same Specimen: none Pt Tolerated Procedure Well: Yes Estimated Blood Loss: none Anesthesia Anesthesiologist: nacho Anesthesia: MAC Inserted Devices Implant(s) used?: No GI Core Measures 50 yrs or older w/o bx or poly: Not Applicable 10yrs. F/U recommended: Not Applicable Kvng Lehman MD Nov 02, 2018 13:07
[2018-11-02] MEDS ORDERED: Potassium Phosphate 30 MM in NS 275 ML IV ONE ×2 (13:30→20:00)
--- NOTE | 2018-11-02 13:30 | Cardiology Report ---
APPROVED REPORT EXAM: Two-dimensional and M-mode echocardiogram with Doppler and color Doppler. INDICATION Tachycardia M-Mode DIMENSIONS IVSd1.2 (0.7-1.1cm)Left Atrium (MM)2.5 (1.6-4.0cm) LVDd2.4 (3.5-5.6cm)Aortic Root2.7 (2.0-3.7cm) PWd1.1 (0.7-1.1cm)Aortic Cusp Exc.1.5 (1.5-2.0cm) LVDs1.4 (2.5-4.0cm) PWs1.5 cm Technically difficult study due to poor acoustic windows. Study quality precludes accurate assessment of regional wall motion. Normal left ventricular chamber size, systolic function and wall motion to extent visualized. Left ventricular ejection fraction estimated to be 55-60 %. Mild left ventricular hypertrophy. No evidence of pericardial effusion. All other cardiac chamber sizes are within normal limits. Focal aortic valve sclerosis with adequate cusp excursion. Thickened mitral valve leaflets with normal excursion. Mitral annulus and aortic root calcification. Pulmonic valve not visualized. Normal tricuspid valve structure. IVC is normal in size with physiological collapse. A color flow and spectral Doppler study was performed and revealed: No aortic regurgitation. Trace mitral regurgitation. Mitral diastolic velocities suggest mild left ventricular diastolic dysfunction (Grade I). No tricuspid regurgitation. Tricuspid systolic velocities suggests peak right ventricular systolic pressure of 10 mmHg.
--- NOTE | 2018-11-02 13:33 | Internal Med Progress Note ---
Subjective Date of Service: Nov 02, 2018 Physician Name Hernandez,Isidro Attending Physician Bruno Ko MD Current Medications Medications (Trade) Dose Ordered Sig/Vicenta Route PRN Reason Start Time Stop Time Status Last Admin Dose Admin Acetaminophen (Tylenol) 650 mg Q4H PRN ORAL fever 10/29/18 12:30 11/27/18 12:29 Acetaminophen (Tylenol) 650 mg Q4H PRN RECTAL Mild Pain (Pain Scale 1-3) 10/29/18 14:45 11/28/18 10:44 Cefepime HCl 1 gm/ Dextrose 55 ml @ 110 mls/hr EVERY 12 HOURS IVPB 10/29/18 21:00 11/05/18 20:59 11/02/18 09:14 Chlorhexidine Gluconate (Caitlyn-Hex 2%) 1 applic DAILY@2000 TOPIC 10/29/18 20:00 11/28/18 19:59 11/01/18 20:45 Dextrose (Dextrose 50%) 25 ml Q30M PRN IV Hypoglycemia 10/29/18 12:30 11/27/18 14:29 Dextrose (Dextrose 50%) 50 ml Q30M PRN IV Hypoglycemia 10/29/18 12:30 11/27/18 14:29 Dextrose/ Electrolytes 1,000 ml @ 50 mls/hr Q20H IV 10/31/18 16:00 11/30/18 15:59 11/02/18 09:11 Gabapentin (Neurontin) 600 mg Q6HR GT 10/29/18 12:00 11/27/18 17:59 Heparin Sodium (Porcine) (Heparin 5000 units/ml) 5,000 units EVERY 12 HOURS SUBQ 10/29/18 21:00 11/27/18 20:59 Levetiracetam 100 ml @ 400 mls/hr Q12HR IVPB 10/31/18 21:00 11/30/18 20:59 11/02/18 09:13 Lorazepam (Ativan 2mg/ml 1ml) 1 mg Q4H PRN IV agitation 10/29/18 12:30 11/04/18 12:29 Magnesium Sulfate 100 ml @ 100 mls/hr Q1H IVPB 11/02/18 12:30 11/02/18 16:29 Metoclopramide HCl (Reglan) 10 mg Q6H PRN IVP severe nausea 10/29/18 12:30 11/27/18 12:29 Metoprolol Tartrate (Lopressor) 5 mg Q8HR IVP 10/31/18 22:00 11/30/18 21:59 11/02/18 06:38 Mineral Oil (Fleet's Mineral Oil Enema) 133 ml EVERY OTHER DAY RECTAL 10/31/18 09:00 11/30/18 08:59 Morphine Sulfate (Morphine Sulfate) 2 mg Q4H PRN IVP severe Pain (Pain Scale 7-10) 10/29/18 12:30 11/04/18 12:29 10/31/18 17:49 Nitroglycerin (Ntg) 0.4 mg Q5M X 3 DOSES PRN SL Prn Chest Pain 10/29/18 12:00 11/27/18 14:29 Pantoprazole (Protonix) 40 mg DAILY IV 10/30/18 09:00 11/28/18 08:59 11/02/18 09:13 Polyethylene Glycol (Miralax) 17 gm HSPRN PRN ORAL Constipation 10/29/18 14:30 11/27/18 14:29 Potassium Phosphate 30 mm/ Sodium Chloride 285 ml @ 47.5 mls/hr ONCE ONCE IV 11/02/18 13:30 11/02/18 19:29 Potassium Chloride 100 ml @ 100 mls/hr Q1HR IVPB 11/02/18 10:00 11/02/18 15:59 11/02/18 11:54 Temazepam (Restoril) 15 mg HSPRN PRN ORAL Insomnia 10/29/18 12:30 11/04/18 12:29 Zinc Oxide (Zinc Oxide) 1 applic THREE TIMES A DAY PRN TOPIC around g tube site 11/02/18 13:00 12/02/18 12:59 Allergies: Coded Allergies: SULFAMETHOXAZOLE (Verified Allergy, Unknown, 10/18/17) TRIMETHOPRIM (Verified Allergy, Unknown, 10/18/17) ROS Limited/Unobtainable: Yes Subjective 57 YO M admitted with J-tube malfunction. Now sepsis. Cover for Int Med-Dr Ko. S/P endoscopy 11/02/18 Objective Last Vital Signs Date Time Temp Pulse Resp B/P (MAP) Pulse Ox O2 Delivery O2 Flow Rate FiO2 11/02/18 12:50 99 Trach Collar 6.0 28 11/02/18 12:00 97.4 98 20 99/57 (71) Laboratory Tests Test 11/02/18 06:15 11/02/18 10:00 White Blood Count 6.5 K/UL (4.8-10.8) Red Blood Count 4.25 M/UL (4.70-6.10) L Hemoglobin 12.2 G/DL (14.2-18.0) L Hematocrit 38.2 % (42.0-52.0) L Mean Corpuscular Volume 90 FL (80-99) Mean Corpuscular Hemoglobin 28.7 PG (27.0-31.0) Mean Corpuscular Hemoglobin Concent 31.9 G/DL (32.0-36.0) L Red Cell Distribution Width 18.6 % (11.6-14.8) H Platelet Count 161 K/UL (150-450) Mean Platelet Volume 5.9 FL (6.5-10.1) L Neutrophils (%) (Auto) 66.3 % (45.0-75.0) Lymphocytes (%) (Auto) 19.9 % (20.0-45.0) L Monocytes (%) (Auto) 10.5 % (1.0-10.0) H Eosinophils (%) (Auto) 2.5 % (0.0-3.0) Basophils (%) (Auto) 0.8 % (0.0-2.0) Prothrombin Time 12.3 SEC (9.30-11.50) H Prothromb Time International Ratio 1.2 (0.9-1.1) H Activated Partial Thromboplast Time 30 SEC (23-33) Sodium Level 140 MMOL/L (136-145) Potassium Level 3.1 MMOL/L (3.5-5.1) L Chloride Level 105 MMOL/L (98-107) Carbon Dioxide Level 25 MMOL/L (21-32) Anion Gap 10 mmol/L (5-15) Blood Urea Nitrogen 10 mg/dL (7-18) Creatinine 0.5 MG/DL (0.55-1.30) L Estimat Glomerular Filtration Rate > 60 mL/min (>60) Glucose Level 83 MG/DL (74-106) Calcium Level 8.5 MG/DL (8.5-10.1) Phosphorus Level 2.3 MG/DL (2.5-4.9) L Magnesium Level 1.6 MG/DL (1.8-2.4) L Vancomycin Level Trough 13.6 ug/mL (5.0-12.0) H Microbiology Date/Time Source Procedure Growth Status 10/31/18 13:30 Blood Blood Culture - Preliminary NO GROWTH AFTER 24 HOURS Resulted 10/31/18 13:15 Blood Blood Culture - Preliminary NO GROWTH AFTER 24 HOURS Resulted 10/31/18 21:30 Sputum Gram Stain - Final Resulted 10/31/18 21:30 Sputum Culture - Preliminary Gram Negative Bacillus 1 Usual Respiratory Nataly Resulted 11/01/18 03:00 Abdomen Gram Stain Pending Resulted 11/01/18 03:00 Wound Culture - Preliminary Gram Negative Bacillus 1 Resulted Intake and Output 11/01/18 11/02/18 19:00 07:00 Output Total 300 ml 1000 ml Balance -300 ml -1000 ml Output Urine Total 300 ml 1000 ml # Voids 2 # Bowel Movements 1 Objective PHYSICAL EXAMINATION: GENERAL: The patient is a well-developed and well-nourished white male, in no apparent distress. HEENT: Eyes, pupils are equal and responsive to light and accommodation. Extraocular movements are intact. NECK: Supple without lymphadenopathy. CHEST: Lungs are clear to auscultation bilaterally without wheezes or rales. CARDIOVASCULAR: Regular rhythm and rate. S1 and S2 are normal without murmurs, rubs, or gallops. ABDOMEN: Soft, nontender, and nondistended. Positive bowel sounds. No evidence of hepatosplenomegaly. Currently, no rebound or guarding noted. EXTREMITIES: Negative for clubbing, cyanosis, or edema. RECTAL/GENITAL: Not performed. NEUROLOGIC: Cranial nerves II through XII are grossly intact without focal deficits. Motor strength is 5/5 bilaterally. Deep tendon reflexes are 2+ plantar. Assessment/Plan Assessment/Plan ASSESSMENT: This is a 57-year-old male. 1. Gastrostomy tube malfunction. 2. Respiratory failure. 3. Seizure disorder. 4. Chronic obstructive pulmonary disease. 5. Gastroesophageal reflux disease. 6. Neurogenic bladder. 7. Hypothyroidism. 8. Quadriplegia. 9. Tracheostomy in situ. 10. Sepsis=gram neg karla TREATMENT: 1. J-tube malfunction. A Gastroenterology consultation has been obtained with Dr. Kvng Lehman. scheduled endoscopic replacement of J-tube on October 30, 2018 postponed due to hypokalemia. Reschedule per GI 2. Respiratory failure. A Pulmonary consultation has been obtained with Dr. Mellissa Garcia. Continue DuoNebs as above. 3. Seizure disorder. Continue Keppra and Neurontin as above. 4. Chronic obstructive pulmonary disease. As above, a Pulmonary consultation has been obtained with Dr. Mellissa Garcia. 5. Gastroesophageal reflux disease. Continue famotidine as above. 6. Neurogenic bladder. The patient is status post suprapubic catheter placement. 7. Hypothyroidism. Continue Levoxyl as above. 8. Quadriplegia. 9. Tracheostomy in situ. 10. Hypokalemia. Replace K+ 11. ABX=vanco and cefepime per ID 12. S/P endoscopy with jejunostomy tube placed 11/02/18 Isidro Hernandez MD Nov 02, 2018 13:33
--- NOTE | 2018-11-02 13:39 | Immediate Post-Op Evaluation ---
Immediate Post-Op Evalulation Immediate Post-Op Evalulation Procedure: EGR gastric tube placement Date of Evaluation: Nov 02, 2018 Time of Evaluation: 13:38 IV Fluids: 200 Blood Products: none` Estimated Blood Loss: none Urinary Output: none Blood Pressure Systolic: 96 Blood Pressure Diastolic: 54 Pulse Rate: 104 Respiratory Rate: 22 O2 Sat by Pulse Oximetry: 96 Temperature (Fahrenheit): 97.5 Pain Score (1-10): 1 Nausea: No Vomiting: No Complications none Patient Status: reacts, patent, none Ramses Fu MD Nov 02, 2018 13:39
--- NOTE | 2018-11-02 15:09 | NUR ---
RD ASSESSMENT & RECOMMENDATIONS SEE CARE ACTIVITY FOR COMPLETE ASSESSMENT DAILY ESTIMATED NEEDS: Needs based on Pulmonary, quadriplegia 78kg adj 23-28 kcals/kg 9725-6766 total kcals 1-1.5 g protein/kg 78-117 g total protein 25-30 mL/kg 1844-7146 total fluid mLs NUTRITION DIAGNOSIS: Swallowing difficulty r/t respiratory status as evidenced by pt is vent dep via T-collar, PEJ dep. CURRENT TF:NPO PO DIET RECOMMENDATIONS: PRINT WASHER EVAL PRIOR TO ORAL DIET ENTERAL NUTRITION RECOMMENDATIONS: Jevity 1.2 @ 65ml/hr x 24 hrs to provide 1560ml, 1872 kcal, 87g pro, 1259ml free H2o - As medically able rec to start Jevity 1.2 @25ml/hr for 6 hrs. - Advance as tolerated 10ml/hr q4-6 hrs to goal - Flush per MD/ HOB over 30 degrees ADDITIONAL RECOMMENDATIONS: 1) Monitor lytes daily, replete as needed (Low K, phos, mag) 2) Re-evaluate TF recs if Synthroid readded (DC'ed at this time) 3) PRINT WASHER eval prior to any oral diet: Pt on ORAL DIET + TF ORACLE ARCHITECT 4) Monitor BG on TF's and need for hypoglycemic agent 5) Calibrated bed scale wt: Recent adm bed wt: ~200# Current adm bed wt: 188# .
--- NOTE | 2018-11-02 15:30 | NUR ---
NURSE NOTES: The patient safely back to the floor from G tube placement without acute distress or shortness of breath. The vital signs are stable with followings: blood pressure of 110/83, heart rate of 100, and SpO2 of 100%, and fever of 97F.
--- NOTE | 2018-11-02 16:00 | NUR ---
NURSE NOTES: Per Dr. Silverman's order, total 6 bags of potassium 10mEq, 4bags of 1g Magnesium, and Potassium Phosphate 30mm will be given to the patient.
--- NOTE | 2018-11-02 16:32 | NUR ---
NURSE NOTES: Spoke with Dr. Silverman regarding replacement of potassium, magnesium, and potassium phosphate. The patient went down for G tube placement and was not able to give potassium, magnesium, and potassium phosphate. Dr. Silverman ordered to change the time of the medication of potassium, magnesium, and potassium phosphate.
--- NOTE | 2018-11-02 16:34 | NUR ---
NURSE NOTES: Dr. Silverman ordered to reschedule potassium phosphate 30mm IVPB to 1999. Carried out the order.
--- NOTE | 2018-11-02 16:45 | NUR ---
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
--- NOTE | 2018-11-02 17:15 | Consultation ---
DATE OF CONSULTATION: 11/02/2018 CARDIOLOGY CONSULTATION CONSULTING PHYSICIAN: Rai Dobbs M.D. REFERRING PHYSICIAN: Bruno Ko M.D. REASON FOR CONSULTATION: Atrial fibrillation with rapid ventricular response. HISTORY OF PRESENT ILLNESS: The patient is a 57-year-old gentleman with history of tachycardia and respiratory failure, status post tracheostomy, who has been off the ventilator as well as dysphagia, status post PEG placement and history of suprapubic catheter and uncontrolled seizures, who was recently discharged from the hospital. The patient was readmitted. The patient had malfunction of jejunostomy tube and currently is out. The patient is scheduled for a new GJ-tube placement today. The patient, however, had multiple episodes of tachycardia with heart rate up to 150s and 160s. The patient's p.o. metoprolol was switched to IV metoprolol every 8 hours. Cardiology consultation was obtained for reevaluating the patient. At the time of my evaluation, the patient is alert and responsive. He has tracheostomy, but he is not on the ventilator. REVIEW OF SYSTEMS: Negative other than what is mentioned in the history of present illness. PAST MEDICAL HISTORY: As mentioned above. FAMILY HISTORY: Noncontributory. SOCIAL HISTORY: He is a jail resident. Does not smoke or drink alcohol. PHYSICAL EXAMINATION: VITAL SIGNS: Blood pressure 108/79, pulse 117, respirations 17, and temperature 97.2. HEAD AND NECK: Shows no JVD or carotid bruits. Status post tracheostomy. LUNGS: Coarse rhonchi. CARDIOVASCULAR: Shows regular S1 and S2 with no gallop or murmur. ABDOMEN: Soft. The GJ-tube is out. EXTREMITIES: No pitting edema. LABORATORY AND DIAGNOSTIC DATA: His echocardiogram from October 29, 2018 showed EF of 55% to 60%. His 12-lead EKG shows sinus tachycardia at the rate of 110 with right bundle-branch block and secondary repolarization abnormality. His labs show white count of 6.5, hemoglobin of 12.2, hematocrit of 38.2, and platelet count is 161,000. Sodium is 140, potassium 3.1, BUN of 10, creatinine 0.5, and glucose of 83. ASSESSMENT/PLAN: 1. Tachycardia, mostly sinus tachycardia. The patient's metoprolol was switched to IV. Currently, on metoprolol 5 mg IV every 8 hours and heart rate is improved. was due to the beta-kal withdrawal. 2. Severe hypokalemia. Potassium was 2.5 yesterday and 3.1 today. It was replaced IV again. 3. Dysphagia, status post GJ-tube malfunction. The patient is scheduled for new GJ-tube placement today. 4. History of respiratory failure, currently off the ventilator, tracheostomy placed. 5. Seizure disorder. 6. COPD. 7. Gastroesophageal reflux disease. 8. Neurogenic bladder status post suprapubic catheter. 9. Hypothyroidism. 10. Quadriplegia. Thank you very much, Dr. Ko, for allowing me to participate in the care of this patient. Please do not hesitate to contact me for any questions regarding my evaluation. The case was discussed in detail with the patient's nurse at the bedside. Rai Dobbs M.D. DR: HARJINDER JOB#: [id number] CC:
--- NOTE | 2018-11-02 19:30 | NUR ---
NURSE NOTES: Received report from Roxane JOSEPH. Patient in bed resting, patient able to make simple needs know. Alert and oriented x2. Patient with no complaints of pain, no acute distress noted. Will continue to monitor.
--- NOTE | 2018-11-02 20:26 | NUR ---
HAND-OFF: Report given to OPAL Diamond. The patient is resting on the bed without acute distress or shortness of breath. The patient's bed in the lowest position, call light in reach, and fall, aspiration seizure precaution reinforced. PICC line intact and patent. Endorsed plan of care.
--- NOTE | 2018-11-02 20:33 | NUR ---
NURSE NOTES: PETAR Singleton ordered to start tube feeding of Jevity 1.2 with goal of 65mL/hr. Endorsed to OPAL Diamond.
[2018-11-02] MEDS: Dyna-Hex 2% Top Sol 2oz TOPIC SCH (20:45)
[2018-11-03] VITALS (20 sets, daily range): BP systolic 70–133; BP diastolic 40–93
[2018-11-03] MEDS: Gabapentin 300 MG/6 ML Soln GT SCH ×5 (00:02→23:56)
[2018-11-03] MEDS: Metoprolol Succinate XL 25mg tab ORAL SCH ×2 (00:02→05:07)
[2018-11-03] MEDS: D5 1/2NS w/KCl 40meq 1000ml 1,000 ML IV SCH (05:06)
[2018-11-03 07:28] LABS: BASOPHILS % (AUTO) 1.1 % (0.0-2.0); HEMATOCRIT 37.1 % (42.0-52.0); LYMPHOCYTES % (AUTO) 22.5 % (20.0-45.0); MEAN CORPUSCULAR VOLUME 90 FL (80-99); MONOCYTES % (AUTO) 7.2 % (1.0-10.0); NEUTROPHILS % (AUTO) 65.1 % (45.0-75.0); PLATELET COUNT 173 K/UL (150-450); RED BLOOD COUNT 4.14 M/UL (4.70-6.10); RED CELL DISTRIBUTION WIDTH 18.5 % (11.6-14.8); WHITE BLOOD COUNT 5.6 K/UL (4.8-10.8)
--- NOTE | 2018-11-03 07:41 | NUR ---
NURSE NOTES: Received report from Senait JOSEPH. The patient is in bed awake and alert x2-3 and able to make needs known. The patient's bed in the lowest position, call light in reach, and fall, aspiration, and seizure precaution reinforced. No c/o pain and no signs of distress ntoed. PICC on ERIC with 2lumen intact and patent and running with D5 1/2NS with 40mEQ KCL@50ml/hr. trach intact and running with 28@ O2 with connecting humidifier. Will continue plan of care.
--- NOTE | 2018-11-03 07:41 | NUR ---
HAND-OFF: Report given to OPAL Sweeney. Patient stable at Hand-off.
[2018-11-03 07:48] LABS: ALANINE AMINOTRANSFERASE 25 U/L (12-78); ALBUMIN 2.1 G/DL (3.4-5.0); ALBUMIN/GLOBULIN RATIO 0.4 (1.0-2.7); ALKALINE PHOSPHATASE 381 U/L (46-116); ANION GAP 8 mmol/L (5-15); ASPARTATE AMINO TRANSFERASE 24 U/L (15-37); BILIRUBIN,TOTAL 3.6 MG/DL (0.2-1.0); BLOOD UREA NITROGEN 7 mg/dL (7-18); CALCIUM 8.3 MG/DL (8.5-10.1); CARBON DIOXIDE 24 MMOL/L (21-32); CHLORIDE 107 MMOL/L (98-107); CREATININE 0.5 MG/DL (0.55-1.30); PHOSPHORUS 3.7 MG/DL (2.5-4.9); POTASSIUM 3.7 MMOL/L (3.5-5.1); SODIUM 139 MMOL/L (136-145)
[2018-11-03 07:56] LABS: BILIRUBIN,DIRECT 2.1 MG/DL (0.0-0.3)
--- NOTE | 2018-11-03 07:57 | Urology Progress Note ---
Assessment/Plan Status: unchanged Assessment/Plan: 1. Urinary retention with chronic suprapubic tube. 2. Neurogenic bladder. 3. Hydronephrosis, which appears to be chronic. 4. Nephrolithiasis. 5. Cystitis. 6. Hematuria. 7. Probable colonized urine. 8. Sepsis. monitor clinically keep SP tube, last exchanged 10/24 hand irrigated and do PRN abx as ordered f/u on final blood cx consider nuclear renal scan Subjective Allergies: Coded Allergies: SULFAMETHOXAZOLE (Verified Allergy, Unknown, 10/18/17) TRIMETHOPRIM (Verified Allergy, Unknown, 10/18/17) Subjective looks comfortable Objective Last 24 Hour Vital Signs Date Time Temp Pulse Resp B/P (MAP) Pulse Ox O2 Delivery O2 Flow Rate FiO2 11/03/18 07:02 97 Trach Collar 6.0 28 11/03/18 05:07 101 112/56 11/03/18 04:00 101 11/03/18 04:00 98.0 95 18 112/56 (74) 97 11/03/18 01:05 99 Trach Collar 6.0 28 11/03/18 00:02 106 119/72 11/03/18 00:00 97.5 95 19 127/77 (94) 99 11/03/18 00:00 94 11/02/18 21:00 Trach Collar 11/02/18 20:00 105 11/02/18 20:00 97.7 106 18 119/72 (88) 95 11/02/18 19:55 98 Trach Collar 6.0 28 11/02/18 16:00 98.1 113 20 114/67 (83) 100 11/02/18 16:00 103 11/02/18 14:22 97.0 99 14 127/84 95 Trach Collar 6 35 11/02/18 14:15 88 13 94/63 95 Trach Collar 6 35 11/02/18 14:00 94 15 85/59 95 Trach Collar 6 35 11/02/18 13:50 97 14 84/54 95 Trach Collar 6 35 11/02/18 13:40 95 15 87/59 95 Trach Collar 6 35 11/02/18 13:39 104 22 96 11/02/18 13:35 93 15 93/61 95 Trach Collar 6 35 11/02/18 13:30 98.0 104 15 93/63 95 Trach Collar 6 35 11/02/18 12:50 99 Trach Collar 6.0 28 11/02/18 12:00 97.4 98 20 99/57 (71) 98 11/02/18 11:46 98 11/02/18 09:00 Trach Collar 11/02/18 08:00 95 11/02/18 08:00 97.2 117 17 108/79 (89) 99 Intake and Output 11/02/18 11/03/18 19:00 07:00 Intake Total 325 ml 797.5 ml Output Total 550 ml 400 ml Balance -225 ml 397.5 ml IV Total 300 ml 442.5 ml Tube Feeding 25 ml 355 ml Output Urine Total 550 ml 400 ml # Voids 3 # Bowel Movements 3 Microbiology Date/Time Source Procedure Growth Status 10/31/18 13:30 Blood Blood Culture - Preliminary NO GROWTH AFTER 48 HOURS Resulted 10/31/18 21:30 Sputum Gram Stain - Final Resulted 10/31/18 21:30 Sputum Culture - Preliminary A.baumanii Complx - Mdr Usual Respiratory Nataly Resulted 11/01/18 03:00 Abdomen Gram Stain - Final Resulted 11/01/18 03:00 Wound Culture - Preliminary Gram Negative Bacillus 1 Resulted Current Medications Medications (Trade) Dose Ordered Sig/Vicenta Route PRN Reason Start Time Stop Time Status Last Admin Dose Admin Acetaminophen (Tylenol) 650 mg Q4H PRN ORAL fever 10/29/18 12:30 11/27/18 12:29 Acetaminophen (Tylenol) 650 mg Q4H PRN RECTAL Mild Pain (Pain Scale 1-3) 10/29/18 14:45 11/28/18 10:44 Cefepime HCl 1 gm/ Dextrose 55 ml @ 110 mls/hr EVERY 12 HOURS IVPB 10/29/18 21:00 11/05/18 20:59 11/02/18 20:46 Chlorhexidine Gluconate (Caitlyn-Hex 2%) 1 applic DAILY@2000 TOPIC 10/29/18 20:00 11/28/18 19:59 11/02/18 20:45 Dextrose (Dextrose 50%) 25 ml Q30M PRN IV Hypoglycemia 10/29/18 12:30 11/27/18 14:29 Dextrose (Dextrose 50%) 50 ml Q30M PRN IV Hypoglycemia 10/29/18 12:30 11/27/18 14:29 Dextrose/ Electrolytes 1,000 ml @ 50 mls/hr Q20H IV 10/31/18 16:00 11/30/18 15:59 11/03/18 05:06 Gabapentin (Neurontin) 600 mg Q6HR GT 10/29/18 12:00 11/27/18 17:59 11/03/18 05:07 Heparin Sodium (Porcine) (Heparin 5000 units/ml) 5,000 units EVERY 12 HOURS SUBQ 10/29/18 21:00 11/27/18 20:59 11/02/18 20:45 Levetiracetam 100 ml @ 400 mls/hr Q12HR IVPB 10/31/18 21:00 11/30/18 20:59 11/02/18 20:45 Lorazepam (Ativan 2mg/ml 1ml) 1 mg Q4H PRN IV agitation 10/29/18 12:30 11/04/18 12:29 Metoclopramide HCl (Reglan) 10 mg Q6H PRN IVP severe nausea 10/29/18 12:30 11/27/18 12:29 Metoprolol Succinate (Toprol XL) 25 mg Q8HR ORAL 11/02/18 22:00 12/02/18 21:59 11/03/18 05:07 Mineral Oil (Fleet's Mineral Oil Enema) 133 ml EVERY OTHER DAY RECTAL 10/31/18 09:00 11/30/18 08:59 Morphine Sulfate (Morphine Sulfate) 2 mg Q4H PRN IVP severe Pain (Pain Scale 7-10) 10/29/18 12:30 11/04/18 12:29 10/31/18 17:49 Nitroglycerin (Ntg) 0.4 mg Q5M X 3 DOSES PRN SL Prn Chest Pain 10/29/18 12:00 11/27/18 14:29 Pantoprazole (Protonix) 40 mg DAILY IV 10/30/18 09:00 11/28/18 08:59 11/02/18 09:13 Polyethylene Glycol (Miralax) 17 gm HSPRN PRN ORAL Constipation 10/29/18 14:30 11/27/18 14:29 Temazepam (Restoril) 15 mg HSPRN PRN ORAL Insomnia 10/29/18 12:30 11/04/18 12:29 11/02/18 20:54 Zinc Oxide (Zinc Oxide) 1 applic THREE TIMES A DAY PRN TOPIC around g tube site 11/02/18 13:00 12/02/18 12:59 Laboratory Tests 11/02/18 10:00: Vancomycin Level Trough 13.6H 11/03/18 06:50: White Blood Count 5.6, Red Blood Count 4.14L, Hemoglobin 12.0L, Hematocrit 37.1L , Mean Corpuscular Volume 90, Mean Corpuscular Hemoglobin 29.1, Mean Corpuscular Hemoglobin Concent 32.4, Red Cell Distribution Width 18.5H, Platelet Count 173, Mean Platelet Volume 6.5, Neutrophils (%) (Auto) 65.1, Lymphocytes (%) (Auto) 22.5, Monocytes (%) (Auto) 7.2, Eosinophils (%) (Auto) 4.0H, Basophils (%) (Auto) 1.1, Sodium Level [Pending], Potassium Level [Pending ], Chloride Level [Pending], Carbon Dioxide Level [Pending], Blood Urea Nitrogen [Pending], Creatinine [Pending], Estimat Glomerular Filtration Rate [ Pending], Glucose Level [Pending], Uric Acid [Pending], Calcium Level [Pending] , Phosphorus Level [Pending], Magnesium Level [Pending], Total Bilirubin [ Pending], Aspartate Amino Transf (AST/SGOT) [Pending], Alanine Aminotransferase (ALT/SGPT) [Pending], Alkaline Phosphatase [Pending], C-Reactive Protein, Quantitative [Pending], Pro-B-Type Natriuretic Peptide [Pending], Total Protein [Pending], Albumin [Pending], Globulin [Pending] Height (Feet): 5 Height (Inches): 4.00 Weight (Pounds): 187 Objective exam stable SP tube in place, urine remains blood-tinged Ascencion Palomino MD Nov 03, 2018 07:57
--- NOTE | 2018-11-03 08:08 | Surgery Progress Note ---
Surgery Progress Note Subjective Additional Comments comfortable tolerating feeds t bili and lft's still elevated. CT/US reviewed again Objective Last 24 Hour Vital Signs Date Time Temp Pulse Resp B/P (MAP) Pulse Ox O2 Delivery O2 Flow Rate FiO2 11/03/18 07:02 97 Trach Collar 6.0 28 11/03/18 05:07 101 112/56 11/03/18 04:00 101 11/03/18 04:00 98.0 95 18 112/56 (74) 97 11/03/18 01:05 99 Trach Collar 6.0 28 11/03/18 00:02 106 119/72 11/03/18 00:00 97.5 95 19 127/77 (94) 99 11/03/18 00:00 94 11/02/18 21:00 Trach Collar 11/02/18 20:00 105 11/02/18 20:00 97.7 106 18 119/72 (88) 95 11/02/18 19:55 98 Trach Collar 6.0 28 11/02/18 16:00 98.1 113 20 114/67 (83) 100 11/02/18 16:00 103 11/02/18 14:22 97.0 99 14 127/84 95 Trach Collar 6 35 11/02/18 14:15 88 13 94/63 95 Trach Collar 6 35 11/02/18 14:00 94 15 85/59 95 Trach Collar 6 35 11/02/18 13:50 97 14 84/54 95 Trach Collar 6 35 11/02/18 13:40 95 15 87/59 95 Trach Collar 6 35 11/02/18 13:39 104 22 96 11/02/18 13:35 93 15 93/61 95 Trach Collar 6 35 11/02/18 13:30 98.0 104 15 93/63 95 Trach Collar 6 35 11/02/18 12:50 99 Trach Collar 6.0 28 11/02/18 12:00 97.4 98 20 99/57 (71) 98 11/02/18 11:46 98 11/02/18 09:00 Trach Collar I&O Intake and Output 11/02/18 11/03/18 19:00 07:00 Intake Total 325 ml 797.5 ml Output Total 550 ml 400 ml Balance -225 ml 397.5 ml IV Total 300 ml 442.5 ml Tube Feeding 25 ml 355 ml Output Urine Total 550 ml 400 ml # Voids 3 # Bowel Movements 3 Cardiovascular: RSR Respiratory: decreased breath sounds Abdomen: soft, distended, present bowel sounds, other Extremities: no cyanosis Laboratory Tests Test 11/02/18 10:00 11/03/18 06:50 Vancomycin Level Trough 13.6 ug/mL (5.0-12.0) H White Blood Count 5.6 K/UL (4.8-10.8) Red Blood Count 4.14 M/UL (4.70-6.10) L Hemoglobin 12.0 G/DL (14.2-18.0) L Hematocrit 37.1 % (42.0-52.0) L Mean Corpuscular Volume 90 FL (80-99) Mean Corpuscular Hemoglobin 29.1 PG (27.0-31.0) Mean Corpuscular Hemoglobin Concent 32.4 G/DL (32.0-36.0) Red Cell Distribution Width 18.5 % (11.6-14.8) H Platelet Count 173 K/UL (150-450) Mean Platelet Volume 6.5 FL (6.5-10.1) Neutrophils (%) (Auto) 65.1 % (45.0-75.0) Lymphocytes (%) (Auto) 22.5 % (20.0-45.0) Monocytes (%) (Auto) 7.2 % (1.0-10.0) Eosinophils (%) (Auto) 4.0 % (0.0-3.0) H Basophils (%) (Auto) 1.1 % (0.0-2.0) Sodium Level 139 MMOL/L (136-145) Potassium Level 3.7 MMOL/L (3.5-5.1) Chloride Level 107 MMOL/L (98-107) Carbon Dioxide Level 24 MMOL/L (21-32) Anion Gap 8 mmol/L (5-15) Blood Urea Nitrogen 7 mg/dL (7-18) Creatinine 0.5 MG/DL (0.55-1.30) L Estimat Glomerular Filtration Rate > 60 mL/min (>60) Glucose Level 114 MG/DL (74-106) H Uric Acid 2.4 MG/DL (2.6-7.2) L Calcium Level 8.3 MG/DL (8.5-10.1) L Phosphorus Level 3.7 MG/DL (2.5-4.9) Magnesium Level 2.4 MG/DL (1.8-2.4) Total Bilirubin 3.6 MG/DL (0.2-1.0) H Direct Bilirubin 2.1 MG/DL (0.0-0.3) H Aspartate Amino Transf (AST/SGOT) 24 U/L (15-37) Alanine Aminotransferase (ALT/SGPT) 25 U/L (12-78) Alkaline Phosphatase 381 U/L (46-116) H C-Reactive Protein, Quantitative 12.3 mg/dL (0.00-0.90) H Pro-B-Type Natriuretic Peptide 153 pg/mL (0-125) H Total Protein 6.9 G/DL (6.4-8.2) Albumin 2.1 G/DL (3.4-5.0) L Globulin 4.8 g/dL Albumin/Globulin Ratio 0.4 (1.0-2.7) L Plan Problems: (1) Malfunction of gastrostomy tube Assessment & Plan: This is a 57-year-old male with malfunctioning G-tube in. G -tube cellulitis. I taken care of this patient for a long period of time and trying to help resolve this. This is actually the best it has looked and prior was significantly worse. I anticipated he would stay on TPN while the G-tube site completely closed with plans for a new G-tube placement in the future in a completely different site. Unfortunately seems that a G-tube is been placed into his prior closing site now is developing cellulitis around it again. For now given that its improved and not leaking significantly potentially cellulitis can improve and will continue with localized wound care. Apply zinc oxide around the tube and continue with tube use. Nutritional optimization is keys here. We will follow with recommendations. Thank you for allowing me to participate in patient's care (2) Malfunction of jejunostomy tube (3) Abnormal LFTs Assessment & Plan: Patient with elevated t bili, d bili, alk phos remain elevated CT and US with cholelithiasis ?cbd stone will discuss with GI trend labs thank you Robert Gomez Nov 03, 2018 08:08
--- NOTE | 2018-11-03 08:29 | NUR ---
SS note This SW followed up with Pat, sister in law who explained patient would like to continue full treatment, full code, does not want to make any changes at this time.
[2018-11-03] MEDS: levETIRAcetam 500mg/NS100ml 100 ML IVPB SCH ×2 (09:05→21:39)
[2018-11-03] MEDS: Pantoprazole Inj IV SCH (09:05)
[2018-11-03] MEDS: Cefepime HCl 1 GM in D5W 55 ML IVPB SCH (09:06)
--- NOTE | 2018-11-03 09:15 | 48 Hour Post Anesthesia Eval ---
Post Anesthesia Evaluation Procedure: EGR gastric tube placement Date of Evaluation: Nov 03, 2018 Time of Evaluation: 09:13 Blood Pressure Systolic: 132 0: 58 Pulse Rate: 104 Respiratory Rate: 24 Temperature (Fahrenheit): 97.6 O2 Sat by Pulse Oximetry: 97 Airway: patent, other - tracheostomy in place spontaneoun breathing Nausea: No Vomiting: No Pain Intensity: 1 Hydration Status: adequate Cardiopulmonary Status: stable Mental Status/LOC: patient returned to baseline Follow-up Care/Observations: n/a Post-Anesthesia Complications: none Follow-up care needed: N/A Ramses Fu MD Nov 03, 2018 09:15
[2018-11-03] MEDS: Heparin 5000 units/ml inj SUBQ SCH ×2 (09:17→21:42)
--- NOTE | 2018-11-03 10:03 | Endoscopy Procedure Note ---
Endoscopy Procedure Note General Indication for Procedure: dysphagia Procedures Performed: EGD, PEG Operative Findings/Diagnosis: same Specimen: none Pt Tolerated Procedure Well: Yes Estimated Blood Loss: none Anesthesia Anesthesiologist: nacho Anesthesia: MAC Inserted Devices Implant(s) used?: No GI Core Measures 50 yrs or older w/o bx or poly: Not Applicable 10yrs. F/U recommended: Not Applicable Kvng Lehman MD Nov 03, 2018 10:03
--- NOTE | 2018-11-03 10:24 | GI Progress Note ---
Assessment/Plan Problems: (1) Malfunction of jejunostomy tube ICD Codes: K94.13 - Enterostomy malfunction SNOMED: 461157885, 986761173 (2) Hypokalemia ICD Codes: E87.6 - Hypokalemia SNOMED: 57910915 Status: stable Status Narrative Discussed with Dr. Lehman. Assessment/Plan CT AP reviewed Thickening of the underdistended urinary bladder is concerning for cystitis. Consider correlation with urinalysis. Moderate bilateral hydroureteronephrosis. Moderate stool in the rectosigmoid colon is suggestive of constipation. Morphologic features of cirrhosis. Cholelithiasis. s/p GT 24 montserratian replacement GTFs per RD GT site care BID/prn Monitor H&H, PRN transfusions PPI Electrolyte correction bowel regimen follow labs The patient was seen and examined at bedside and all new and available data was reviewed in the patients chart. I agree with the above findings, impression and plan. (Patient seen earlier today. Signature stamp does not reflect patient encounter time.). - Kvng Lehman MD Subjective Subjective limited Objective Last 24 Hour Vital Signs Date Time Temp Pulse Resp B/P (MAP) Pulse Ox O2 Delivery O2 Flow Rate FiO2 11/03/18 09:15 104 24 97 11/03/18 09:00 Trach Collar 11/03/18 08:00 97.8 107 20 133/76 (95) 99 11/03/18 08:00 99 11/03/18 07:02 97 Trach Collar 6.0 28 11/03/18 05:07 101 112/56 11/03/18 04:00 101 11/03/18 04:00 98.0 95 18 112/56 (74) 97 11/03/18 01:05 99 Trach Collar 6.0 28 11/03/18 00:02 106 119/72 11/03/18 00:00 97.5 95 19 127/77 (94) 99 11/03/18 00:00 94 11/02/18 21:00 Trach Collar 11/02/18 20:00 105 11/02/18 20:00 97.7 106 18 119/72 (88) 95 11/02/18 19:55 98 Trach Collar 6.0 28 11/02/18 16:00 98.1 113 20 114/67 (83) 100 11/02/18 16:00 103 11/02/18 14:22 97.0 99 14 127/84 95 Trach Collar 6 35 11/02/18 14:15 88 13 94/63 95 Trach Collar 6 35 11/02/18 14:00 94 15 85/59 95 Trach Collar 6 35 11/02/18 13:50 97 14 84/54 95 Trach Collar 6 35 11/02/18 13:40 95 15 87/59 95 Trach Collar 6 35 11/02/18 13:39 104 22 96 11/02/18 13:35 93 15 93/61 95 Trach Collar 6 35 11/02/18 13:30 98.0 104 15 93/63 95 Trach Collar 6 35 11/02/18 12:50 99 Trach Collar 6.0 28 11/02/18 12:00 97.4 98 20 99/57 (71) 98 11/02/18 11:46 98 Intake and Output 11/02/18 11/03/18 19:00 07:00 Intake Total 325 ml 797.5 ml Output Total 550 ml 400 ml Balance -225 ml 397.5 ml IV Total 300 ml 442.5 ml Tube Feeding 25 ml 355 ml Output Urine Total 550 ml 400 ml # Voids 3 # Bowel Movements 3 Laboratory Tests Test 11/03/18 06:50 White Blood Count 5.6 K/UL (4.8-10.8) Red Blood Count 4.14 M/UL (4.70-6.10) L Hemoglobin 12.0 G/DL (14.2-18.0) L Hematocrit 37.1 % (42.0-52.0) L Mean Corpuscular Volume 90 FL (80-99) Mean Corpuscular Hemoglobin 29.1 PG (27.0-31.0) Mean Corpuscular Hemoglobin Concent 32.4 G/DL (32.0-36.0) Red Cell Distribution Width 18.5 % (11.6-14.8) H Platelet Count 173 K/UL (150-450) Mean Platelet Volume 6.5 FL (6.5-10.1) Neutrophils (%) (Auto) 65.1 % (45.0-75.0) Lymphocytes (%) (Auto) 22.5 % (20.0-45.0) Monocytes (%) (Auto) 7.2 % (1.0-10.0) Eosinophils (%) (Auto) 4.0 % (0.0-3.0) H Basophils (%) (Auto) 1.1 % (0.0-2.0) Sodium Level 139 MMOL/L (136-145) Potassium Level 3.7 MMOL/L (3.5-5.1) Chloride Level 107 MMOL/L (98-107) Carbon Dioxide Level 24 MMOL/L (21-32) Anion Gap 8 mmol/L (5-15) Blood Urea Nitrogen 7 mg/dL (7-18) Creatinine 0.5 MG/DL (0.55-1.30) L Estimat Glomerular Filtration Rate > 60 mL/min (>60) Glucose Level 114 MG/DL (74-106) H Uric Acid 2.4 MG/DL (2.6-7.2) L Calcium Level 8.3 MG/DL (8.5-10.1) L Phosphorus Level 3.7 MG/DL (2.5-4.9) Magnesium Level 2.4 MG/DL (1.8-2.4) Total Bilirubin 3.6 MG/DL (0.2-1.0) H Direct Bilirubin 2.1 MG/DL (0.0-0.3) H Aspartate Amino Transf (AST/SGOT) 24 U/L (15-37) Alanine Aminotransferase (ALT/SGPT) 25 U/L (12-78) Alkaline Phosphatase 381 U/L (46-116) H C-Reactive Protein, Quantitative 12.3 mg/dL (0.00-0.90) H Pro-B-Type Natriuretic Peptide 153 pg/mL (0-125) H Total Protein 6.9 G/DL (6.4-8.2) Albumin 2.1 G/DL (3.4-5.0) L Globulin 4.8 g/dL Albumin/Globulin Ratio 0.4 (1.0-2.7) L Height (Feet): 5 Height (Inches): 4.00 Weight (Pounds): 187 General Appearance: WD/WN, no apparent distress, alert Cardiovascular: normal rate Respiratory/Chest: normal breath sounds, no respiratory distress Abdominal Exam: normal bowel sounds, non tender, soft, GT site - c/d/i Extremities: non-tender Daisy Bernstein ALTERATION INSPECTOR Nov 03, 2018 10:24
--- NOTE | 2018-11-03 10:26 | NUR ---
*-* INSURANCE *-* ALL CLINICALS HAVE BEEN FAXED TO: [facility] [phone] HE IS NEON SIGN INSTALLER ASSIGNED REF#[id number] NEON SIGN INSTALLER: JAXON #[phone] FAX#[phone] REVIEWS/CLINICAL
--- NOTE | 2018-11-03 10:45 | NUR ---
NURSE NOTES: MANAGER SALT called for decreased mental status and hypotension with BP 70/40, P80. Finger tip blood sugar checked and resulted with 101mg/dl. Dr. Garcia notified and NS 1L bolus IV ordered. Order read back and carried out.
--- NOTE | 2018-11-03 11:30 | NUR ---
HAND-OFF: Report given to Suzan JOSEPH. Pt transferred to ICU via gurney with 2RNs and 1 SUPERINTENDENT POWER with RT. Pt is more alert than tele and responsive to verbal.
--- NOTE | 2018-11-03 11:38 | Pulmonology Progress Note ---
Assessment/Plan Problems: (1) Seizures (2) Sepsis (3) Chronic respiratory failure (4) Malfunction of gastrostomy tube Assessment/Plan called the number on the face sheet for next of kin to discuss the pts code status and plan of care. Nobody answered, left a message. doing poorly with fluctuating bp and heart rate. pt needs to be comfort care and DNR, will try to reach out to family again. Subjective ROS Limited/Unobtainable: No Constitutional: Reports: no symptoms HEENT: Repors: no symptoms Allergies: Coded Allergies: SULFAMETHOXAZOLE (Verified Allergy, Unknown, 10/18/17) TRIMETHOPRIM (Verified Allergy, Unknown, 10/18/17) Objective Last 24 Hour Vital Signs Date Time Temp Pulse Resp B/P (MAP) Pulse Ox O2 Delivery O2 Flow Rate FiO2 11/03/18 10:59 97.8 85 20 80/48 (59) 96 11/03/18 10:50 97.8 84 20 81/50 (60) 97 11/03/18 10:45 98.0 88 20 78/49 (59) 96 11/03/18 09:15 104 24 97 11/03/18 09:00 Trach Collar 11/03/18 08:00 97.8 107 20 133/76 (95) 99 11/03/18 08:00 99 11/03/18 07:02 97 Trach Collar 6.0 28 11/03/18 05:07 101 112/56 11/03/18 04:00 101 11/03/18 04:00 98.0 95 18 112/56 (74) 97 11/03/18 01:05 99 Trach Collar 6.0 28 11/03/18 00:02 106 119/72 11/03/18 00:00 97.5 95 19 127/77 (94) 99 11/03/18 00:00 94 11/02/18 21:00 Trach Collar 11/02/18 20:00 105 11/02/18 20:00 97.7 106 18 119/72 (88) 95 11/02/18 19:55 98 Trach Collar 6.0 28 11/02/18 16:00 98.1 113 20 114/67 (83) 100 11/02/18 16:00 103 11/02/18 14:22 97.0 99 14 127/84 95 Trach Collar 6 35 11/02/18 14:15 88 13 94/63 95 Trach Collar 6 35 11/02/18 14:00 94 15 85/59 95 Trach Collar 6 35 11/02/18 13:50 97 14 84/54 95 Trach Collar 6 35 11/02/18 13:40 95 15 87/59 95 Trach Collar 6 35 11/02/18 13:39 104 22 96 11/02/18 13:35 93 15 93/61 95 Trach Collar 6 35 11/02/18 13:30 98.0 104 15 93/63 95 Trach Collar 6 35 11/02/18 12:50 99 Trach Collar 6.0 28 11/02/18 12:00 97.4 98 20 99/57 (71) 98 11/02/18 11:46 98 Intake and Output 11/02/18 11/03/18 19:00 07:00 Intake Total 325 ml 797.5 ml Output Total 550 ml 400 ml Balance -225 ml 397.5 ml IV Total 300 ml 442.5 ml Tube Feeding 25 ml 355 ml Output Urine Total 550 ml 400 ml # Voids 3 # Bowel Movements 3 General Appearance: WD/WN HEENT: normocephalic, atraumatic, PERRL Respiratory/Chest: chest wall non-tender, lungs clear Cardiovascular: normal peripheral pulses, normal rate Abdomen: normal bowel sounds, soft, non tender Genitourinary: normal external genitalia Extremities: no cyanosis Skin: no rash Neurologic/Psychiatric: transfer and line up worker II-XII grossly normal Lymphatic: no neck adenopathy Microbiology Date/Time Source Procedure Growth Status 10/31/18 13:30 Blood Blood Culture - Preliminary NO GROWTH AFTER 48 HOURS Resulted 10/31/18 13:15 Blood Blood Culture - Preliminary NO GROWTH AFTER 48 HOURS Resulted 10/31/18 21:30 Sputum Gram Stain - Final Resulted 10/31/18 21:30 Sputum Culture - Preliminary A.baumanii Complx - Mdr Usual Respiratory Nataly Resulted 11/01/18 03:00 Abdomen Gram Stain - Final Resulted 11/01/18 03:00 Wound Culture - Preliminary A.baumanii Complx - Mdr Resulted Laboratory Tests 11/03/18 06:50: White Blood Count 5.6, Red Blood Count 4.14L, Hemoglobin 12.0L, Hematocrit 37.1L , Mean Corpuscular Volume 90, Mean Corpuscular Hemoglobin 29.1, Mean Corpuscular Hemoglobin Concent 32.4, Red Cell Distribution Width 18.5H, Platelet Count 173, Mean Platelet Volume 6.5, Neutrophils (%) (Auto) 65.1, Lymphocytes (%) (Auto) 22.5, Monocytes (%) (Auto) 7.2, Eosinophils (%) (Auto) 4.0H, Basophils (%) (Auto) 1.1, Sodium Level 139, Potassium Level 3.7, Chloride Level 107, Carbon Dioxide Level 24, Anion Gap 8, Blood Urea Nitrogen 7, Creatinine 0.5L, Estimat Glomerular Filtration Rate > 60, Glucose Level 114H, Uric Acid 2.4L, Calcium Level 8.3L, Phosphorus Level 3.7, Magnesium Level 2.4, Total Bilirubin 3.6H, Direct Bilirubin 2.1H, Aspartate Amino Transf (AST/SGOT) 24, Alanine Aminotransferase (ALT/SGPT) 25, Alkaline Phosphatase 381H, C- Reactive Protein, Quantitative 12.3H, Pro-B-Type Natriuretic Peptide 153H, Total Protein 6.9, Albumin 2.1L, Globulin 4.8, Albumin/Globulin Ratio 0.4L Current Medications Medications (Trade) Dose Ordered Sig/Vicenta Route PRN Reason Start Time Stop Time Status Last Admin Dose Admin Acetaminophen (Tylenol) 650 mg Q4H PRN ORAL fever 10/29/18 12:30 11/27/18 12:29 Acetaminophen (Tylenol) 650 mg Q4H PRN RECTAL Mild Pain (Pain Scale 1-3) 10/29/18 14:45 11/28/18 10:44 Cefepime HCl 1 gm/ Dextrose 55 ml @ 110 mls/hr EVERY 12 HOURS IVPB 10/29/18 21:00 11/05/18 20:59 11/03/18 09:06 Chlorhexidine Gluconate (Caitlyn-Hex 2%) 1 applic DAILY@2000 TOPIC 10/29/18 20:00 11/28/18 19:59 11/02/18 20:45 Dextrose (Dextrose 50%) 25 ml Q30M PRN IV Hypoglycemia 10/29/18 12:30 11/27/18 14:29 Dextrose (Dextrose 50%) 50 ml Q30M PRN IV Hypoglycemia 10/29/18 12:30 11/27/18 14:29 Docusate Sodium (Colace) 100 mg BID ORAL 11/03/18 18:00 12/03/18 17:59 Gabapentin (Neurontin) 600 mg Q6HR GT 10/29/18 12:00 11/27/18 17:59 11/03/18 05:07 Heparin Sodium (Porcine) (Heparin 5000 units/ml) 5,000 units EVERY 12 HOURS SUBQ 10/29/18 21:00 11/27/18 20:59 11/03/18 09:17 Levetiracetam 100 ml @ 400 mls/hr Q12HR IVPB 10/31/18 21:00 11/30/18 20:59 11/03/18 09:05 Lorazepam (Ativan 2mg/ml 1ml) 1 mg Q4H PRN IV agitation 10/29/18 12:30 11/04/18 12:29 Metoclopramide HCl (Reglan) 10 mg Q6H PRN IVP severe nausea 10/29/18 12:30 11/27/18 12:29 Metoprolol Succinate (Toprol XL) 25 mg Q8HR ORAL 11/02/18 22:00 12/02/18 21:59 11/03/18 05:07 Mineral Oil (Fleet's Mineral Oil Enema) 133 ml EVERY OTHER DAY RECTAL 10/31/18 09:00 11/30/18 08:59 Morphine Sulfate (Morphine Sulfate) 2 mg Q4H PRN IVP severe Pain (Pain Scale 7-10) 10/29/18 12:30 11/04/18 12:29 10/31/18 17:49 Nitroglycerin (Ntg) 0.4 mg Q5M X 3 DOSES PRN SL Prn Chest Pain 10/29/18 12:00 11/27/18 14:29 Pantoprazole (Protonix) 40 mg DAILY IV 10/30/18 09:00 11/28/18 08:59 11/03/18 09:05 Polyethylene Glycol (Miralax) 17 gm BEDTIME ORAL 11/03/18 21:00 12/03/18 20:59 Polyethylene Glycol (Miralax) 17 gm HSPRN PRN ORAL Constipation 10/29/18 14:30 11/27/18 14:29 Sodium Chloride 1,000 ml @ 999 mls/hr Q1H1M ONCE IV 11/03/18 11:00 11/03/18 12:00 11/03/18 11:06 Temazepam (Restoril) 15 mg HSPRN PRN ORAL Insomnia 10/29/18 12:30 11/04/18 12:29 11/02/18 20:54 Zinc Oxide (Zinc Oxide) 1 applic THREE TIMES A DAY PRN TOPIC around g tube site 11/02/18 13:00 12/02/18 12:59 Mellissa Garcia MD Nov 03, 2018 11:38
[2018-11-03] MEDS ORDERED: Metoclopramide 10mg/2ml Inj IVP PRN (12:11)
--- NOTE | 2018-11-03 12:11 | Nephrology Progress Note ---
Assessment/Plan Problem List: (1) Hypokalemia (2) Malfunction of gastrostomy tube (3) Malfunction of jejunostomy tube (4) Seizures Assessment Sever hypokalemia Low mag other conditions; 1. JG tube malfunction and leaks. 2. Respiratory failure. 3. Seizure disorder. 4. Chronic obstructive pulmonary disease. 5. Gastroesophageal reflux disease. 6. Neurogenic bladder. 7. Hypothyroidism. 8. Quadriplegia. 9. Tracheostomy in situ. 10.Thrombocytopenia. Plan Vigorous K supplement IV waiting for GT functionality ! ( Per GI) Monitor lytes and renal parameters per orders Subjective ROS Limited/Unobtainable: Yes Interval Events/Complaints I saw the patient 9 am in 2E , but at this time patient is in ICU for low BP Objective Objective Last 24 Hour Vital Signs Date Time Temp Pulse Resp B/P (MAP) Pulse Ox O2 Delivery O2 Flow Rate FiO2 11/03/18 10:59 97.8 85 20 80/48 (59) 96 11/03/18 10:50 97.8 84 20 81/50 (60) 97 11/03/18 10:46 98.0 80 18 70/40 (50) 99 11/03/18 10:45 98.0 88 20 78/49 (59) 96 11/03/18 09:15 104 24 97 11/03/18 09:00 Trach Collar 11/03/18 08:00 97.8 107 20 133/76 (95) 99 11/03/18 08:00 99 11/03/18 07:02 97 Trach Collar 6.0 28 11/03/18 05:07 101 112/56 11/03/18 04:00 101 11/03/18 04:00 98.0 95 18 112/56 (74) 97 11/03/18 01:05 99 Trach Collar 6.0 28 11/03/18 00:02 106 119/72 11/03/18 00:00 97.5 95 19 127/77 (94) 99 11/03/18 00:00 94 11/02/18 21:00 Trach Collar 11/02/18 20:00 105 11/02/18 20:00 97.7 106 18 119/72 (88) 95 11/02/18 19:55 98 Trach Collar 6.0 28 11/02/18 16:00 98.1 113 20 114/67 (83) 100 11/02/18 16:00 103 11/02/18 14:22 97.0 99 14 127/84 95 Trach Collar 6 35 11/02/18 14:15 88 13 94/63 95 Trach Collar 6 35 11/02/18 14:00 94 15 85/59 95 Trach Collar 6 35 11/02/18 13:50 97 14 84/54 95 Trach Collar 6 35 11/02/18 13:40 95 15 87/59 95 Trach Collar 6 35 11/02/18 13:39 104 22 96 11/02/18 13:35 93 15 93/61 95 Trach Collar 6 35 11/02/18 13:30 98.0 104 15 93/63 95 Trach Collar 6 35 11/02/18 12:50 99 Trach Collar 6.0 28 Intake and Output 11/02/18 11/03/18 19:00 07:00 Intake Total 325 ml 842.5 ml Output Total 550 ml 400 ml Balance -225 ml 442.5 ml IV Total 300 ml 442.5 ml Tube Feeding 25 ml 400 ml Output Urine Total 550 ml 400 ml # Voids 3 # Bowel Movements 3 Laboratory Tests 11/03/18 06:50: White Blood Count 5.6, Red Blood Count 4.14L, Hemoglobin 12.0L, Hematocrit 37.1L , Mean Corpuscular Volume 90, Mean Corpuscular Hemoglobin 29.1, Mean Corpuscular Hemoglobin Concent 32.4, Red Cell Distribution Width 18.5H, Platelet Count 173, Mean Platelet Volume 6.5, Neutrophils (%) (Auto) 65.1, Lymphocytes (%) (Auto) 22.5, Monocytes (%) (Auto) 7.2, Eosinophils (%) (Auto) 4.0H, Basophils (%) (Auto) 1.1, Sodium Level 139, Potassium Level 3.7, Chloride Level 107, Carbon Dioxide Level 24, Anion Gap 8, Blood Urea Nitrogen 7, Creatinine 0.5L, Estimat Glomerular Filtration Rate > 60, Glucose Level 114H, Uric Acid 2.4L, Calcium Level 8.3L, Phosphorus Level 3.7, Magnesium Level 2.4, Total Bilirubin 3.6H, Direct Bilirubin 2.1H, Aspartate Amino Transf (AST/SGOT) 24, Alanine Aminotransferase (ALT/SGPT) 25, Alkaline Phosphatase 381H, C- Reactive Protein, Quantitative 12.3H, Pro-B-Type Natriuretic Peptide 153H, Total Protein 6.9, Albumin 2.1L, Globulin 4.8, Albumin/Globulin Ratio 0.4L Height (Feet): 5 Height (Inches): 4.00 Weight (Pounds): 187 Neck: other - trach- O2 tube Cardiovascular: normal rate Respiratory/Chest: decreased breath sounds Abdomen: distended Sudhakar Silverman MD Nov 03, 2018 12:11
[2018-11-03] MEDS ORDERED: Nitroglycerin Subl 0.4mg tab SL PRN (12:12)
[2018-11-03] MEDS ORDERED: Miralax 17gm pkt GT PRN (12:12)
[2018-11-03] MEDS ORDERED: Morphine Sulfate 2mg/ml Inj(IV/IM USE ONLY) IVP PRN (12:12)
--- NOTE | 2018-11-03 12:12 | Diagnostic Imaging Report ---
Indication: Reason For Exam: COUGH Technique: Single AP view of the chest. Comparison: Chest radiograph dated 10/29/2018 Findings: The cardiomediastinal silhouette is unchanged. Low lung volumes leading to bronchovascular crowding. Bibasilar subsegmental atelectasis. No new airspace consolidation. Likely trace left pleural effusion. No pneumothorax. No acute osseous abnormality. Unchanged right PICC and cannulated tracheostomy. IMPRESSION: No significant change from prior examination.
--- NOTE | 2018-11-03 12:34 | Infectious Diseases Prog Note ---
Assessment/Plan Assessment/Plan Assessment: Sepsis 2ry to GNR bacteremia (suspect from urinary source given hydronephrosis and chronic suprapubic catheter; an U/a has not been done yet); worsening- now in ICU due to hypotension -10/30 BCx / ESBL; 10/31 BCx NTD -spc x MDR ABC (I Gentamicin); colonizer -11/03 CXR: Low lung volumes leading tobronchovascular crowding. Bibasilar subsegmental atelectasis. No new airspace consolidation. -CT abd/p: Thickening of the underdistended urinary bladder is concerning for cystitis. Consider correlation with urinalysis. Moderate bilateral hydroureteronephrosis. Moderate stool in the rectosigmoid colon is suggestive of constipation. Morphologic features of cirrhosis. Cholelithiasis. -CXR: Left hemidiaphragm is elevated but this appears stable. PICC line and tracheostomy noted. Cardiomegaly is stable. Bones are osteopenic. JT dislodgement and leakage w/ surrounding cellulitis -wound cx MDR ABC (I genta); colonizer Fever; SP No leukocytosis paraplegia neurogenic bladder COPD GERD seizure disorder s/p trach dysphagia s/p J tube placement 10/22/18 [place] resident Plan: -Switch empiric Cefepime #5 to Meropenem for ESBL bacteremia -11/02 SP IV Vancomycin #5 -10/29 SP Amikacin #1 and Flagyl #1 -f/u cx -Monitor CBC/CMP, temperatures -trach/JT care -GI f/u -aspiration precautions -u/a w/ reflex (re-ordered for 3rd time now, not done) -f/u repeat Bcx x2 Thank you for this consultation. Will continue to follow along with you. Discussed with RN. Subjective Allergies: Coded Allergies: SULFAMETHOXAZOLE (Verified Allergy, Unknown, 10/18/17) TRIMETHOPRIM (Verified Allergy, Unknown, 10/18/17) Subjective afebrile hypotensive and transferred to ICU; not on pressors currently repeat Bcx NTD u/a not collected yet Objective Vital Signs Last 24 Hour Vital Signs Date Time Temp Pulse Resp B/P (MAP) Pulse Ox O2 Delivery O2 Flow Rate FiO2 11/03/18 10:59 97.8 85 20 80/48 (59) 96 11/03/18 10:50 97.8 84 20 81/50 (60) 97 11/03/18 10:46 98.0 80 18 70/40 (50) 99 11/03/18 10:45 98.0 88 20 78/49 (59) 96 11/03/18 09:15 104 24 97 11/03/18 09:00 Trach Collar 11/03/18 08:00 97.8 107 20 133/76 (95) 99 11/03/18 08:00 99 11/03/18 07:02 97 Trach Collar 6.0 28 11/03/18 05:07 101 112/56 11/03/18 04:00 101 11/03/18 04:00 98.0 95 18 112/56 (74) 97 11/03/18 01:05 99 Trach Collar 6.0 28 11/03/18 00:02 106 119/72 11/03/18 00:00 97.5 95 19 127/77 (94) 99 11/03/18 00:00 94 11/02/18 21:00 Trach Collar 11/02/18 20:00 105 11/02/18 20:00 97.7 106 18 119/72 (88) 95 11/02/18 19:55 98 Trach Collar 6.0 28 11/02/18 16:00 98.1 113 20 114/67 (83) 100 11/02/18 16:00 103 11/02/18 14:22 97.0 99 14 127/84 95 Trach Collar 6 35 11/02/18 14:15 88 13 94/63 95 Trach Collar 6 35 11/02/18 14:00 94 15 85/59 95 Trach Collar 6 35 11/02/18 13:50 97 14 84/54 95 Trach Collar 6 35 11/02/18 13:40 95 15 87/59 95 Trach Collar 6 35 11/02/18 13:39 104 22 96 11/02/18 13:35 93 15 93/61 95 Trach Collar 6 35 11/02/18 13:30 98.0 104 15 93/63 95 Trach Collar 6 35 11/02/18 12:50 99 Trach Collar 6.0 28 Height (Feet): 5 Height (Inches): 4.00 Weight (Pounds): 187 Objective General Appearance: WD/WN, no apparent distress, alert Cardiovascular: normal rate Respiratory/Chest: normal breath sounds, no respiratory distress Abdominal Exam: normal bowel sounds, non tender, soft, GT site - c/d/i Extremities: non-tender Microbiology Date/Time Source Procedure Growth Status 10/31/18 13:30 Blood Blood Culture - Preliminary NO GROWTH AFTER 48 HOURS Resulted 10/31/18 13:15 Blood Blood Culture - Preliminary NO GROWTH AFTER 48 HOURS Resulted 10/31/18 21:30 Sputum Gram Stain - Final Resulted 10/31/18 21:30 Sputum Culture - Preliminary A.baumanii Complx - Mdr Usual Respiratory Nataly Resulted 11/01/18 03:00 Abdomen Gram Stain - Final Resulted 11/01/18 03:00 Wound Culture - Preliminary A.baumanii Complx - Mdr Resulted Laboratory Tests Test 11/03/18 06:50 White Blood Count 5.6 K/UL (4.8-10.8) Red Blood Count 4.14 M/UL (4.70-6.10) L Hemoglobin 12.0 G/DL (14.2-18.0) L Hematocrit 37.1 % (42.0-52.0) L Mean Corpuscular Volume 90 FL (80-99) Mean Corpuscular Hemoglobin 29.1 PG (27.0-31.0) Mean Corpuscular Hemoglobin Concent 32.4 G/DL (32.0-36.0) Red Cell Distribution Width 18.5 % (11.6-14.8) H Platelet Count 173 K/UL (150-450) Mean Platelet Volume 6.5 FL (6.5-10.1) Neutrophils (%) (Auto) 65.1 % (45.0-75.0) Lymphocytes (%) (Auto) 22.5 % (20.0-45.0) Monocytes (%) (Auto) 7.2 % (1.0-10.0) Eosinophils (%) (Auto) 4.0 % (0.0-3.0) H Basophils (%) (Auto) 1.1 % (0.0-2.0) Sodium Level 139 MMOL/L (136-145) Potassium Level 3.7 MMOL/L (3.5-5.1) Chloride Level 107 MMOL/L (98-107) Carbon Dioxide Level 24 MMOL/L (21-32) Anion Gap 8 mmol/L (5-15) Blood Urea Nitrogen 7 mg/dL (7-18) Creatinine 0.5 MG/DL (0.55-1.30) L Estimat Glomerular Filtration Rate > 60 mL/min (>60) Glucose Level 114 MG/DL (74-106) H Uric Acid 2.4 MG/DL (2.6-7.2) L Calcium Level 8.3 MG/DL (8.5-10.1) L Phosphorus Level 3.7 MG/DL (2.5-4.9) Magnesium Level 2.4 MG/DL (1.8-2.4) Total Bilirubin 3.6 MG/DL (0.2-1.0) H Direct Bilirubin 2.1 MG/DL (0.0-0.3) H Aspartate Amino Transf (AST/SGOT) 24 U/L (15-37) Alanine Aminotransferase (ALT/SGPT) 25 U/L (12-78) Alkaline Phosphatase 381 U/L (46-116) H C-Reactive Protein, Quantitative 12.3 mg/dL (0.00-0.90) H Pro-B-Type Natriuretic Peptide 153 pg/mL (0-125) H Total Protein 6.9 G/DL (6.4-8.2) Albumin 2.1 G/DL (3.4-5.0) L Globulin 4.8 g/dL Albumin/Globulin Ratio 0.4 (1.0-2.7) L Current Medications Medications (Trade) Dose Ordered Sig/Vicenta Route PRN Reason Start Time Stop Time Status Last Admin Dose Admin Acetaminophen (Tylenol) 650 mg Q4H PRN ORAL fever 11/03/18 12:30 11/27/18 12:29 Acetaminophen (Tylenol) 650 mg Q4H PRN RECTAL Mild Pain (Pain Scale 1-3) 11/03/18 14:45 11/28/18 10:44 Cefepime HCl 1 gm/ Dextrose 55 ml @ 110 mls/hr EVERY 12 HOURS IVPB 11/03/18 21:00 11/05/18 20:59 Chlorhexidine Gluconate (Caitlyn-Hex 2%) 1 applic DAILY@2000 TOPIC 11/03/18 20:00 11/28/18 19:59 Dextrose (Dextrose 50%) 25 ml Q30M PRN IV Hypoglycemia 11/03/18 12:30 11/27/18 14:29 Dextrose (Dextrose 50%) 50 ml Q30M PRN IV Hypoglycemia 11/03/18 12:30 11/27/18 14:29 Docusate Sodium (Colace) 100 mg BID GT 11/03/18 18:00 12/03/18 17:59 Gabapentin (Neurontin) 600 mg Q6HR GT 11/03/18 12:00 11/27/18 17:59 Heparin Sodium (Porcine) (Heparin 5000 units/ml) 5,000 units EVERY 12 HOURS SUBQ 11/03/18 21:00 11/27/18 20:59 Levetiracetam 100 ml @ 400 mls/hr Q12HR IVPB 11/03/18 21:00 11/30/18 20:59 Lorazepam (Ativan 2mg/ml 1ml) 1 mg Q4H PRN IV agitation 11/03/18 12:11 11/10/18 12:10 Metoclopramide HCl (Reglan) 10 mg Q6H PRN IVP severe nausea 11/03/18 12:11 12/03/18 12:10 Metoprolol Tartrate (Lopressor) 25 mg Q8HR GT 11/03/18 14:00 12/02/18 21:59 Mineral Oil (Fleet's Mineral Oil Enema) 133 ml EVERY OTHER DAY RECTAL 11/04/18 09:00 11/30/18 08:59 Morphine Sulfate (Morphine Sulfate) 2 mg Q4H PRN IVP severe Pain (Pain Scale 7-10) 11/03/18 12:12 11/10/18 12:11 Nitroglycerin (Ntg) 0.4 mg Q5M X 3 DOSES PRN SL Prn Chest Pain 11/03/18 12:12 12/03/18 12:11 Pantoprazole (Protonix) 40 mg DAILY IV 11/04/18 09:00 11/28/18 08:59 Polyethylene Glycol (Miralax) 17 gm BEDTIME GT 11/03/18 21:00 12/03/18 20:59 Polyethylene Glycol (Miralax) 17 gm HSPRN PRN GT Constipation 11/03/18 12:12 12/03/18 12:11 Temazepam (Restoril) 15 mg HSPRN PRN GT Insomnia 11/03/18 12:30 11/04/18 12:29 Zinc Oxide (Zinc Oxide) 1 applic TIDPRN PRN TOPIC around g tube site 11/03/18 13:00 12/03/18 12:59 Kimi Ramos M.D. Nov 03, 2018 12:34
--- NOTE | 2018-11-03 12:50 | NUR ---
NURSE NOTES: Report received from OP[facility]. Pt transferred to ICU from Tele via gurney. Pt alert and oriented x2, responsive to verbal commands. B/P on arrival 90/70's. T piece at 28% cool mist, saturating at 100%. G tube intact, however redness around tube. picture taken for chart. Right upper arm PICC noted, flushed. Pt had large brown soft BM. Suprapubic cath and condom cath noted, patent and draining clear miriam urine. Safety measures in place, bed locked in lowest position and side rails up x3, bed alarm on. Will continue to monitor and carry out plan of care.
[2018-11-03 12:59] LABS: APPEARANCE,URINE CLEAR; BILIRUBIN, URINE 1+ (NEGATIVE); GLUCOSE, URINE (UA) NEGATIVE (NEGATIVE); KETONES,URINE NEGATIVE (NEGATIVE); LEUKOCYTE ESTERASE ,URINE 3+ (NEGATIVE); NITRITE,URINE NEGATIVE (NEGATIVE); PH,URINE 6.5 (4.5-8.0); PROTEIN,URINE 2+ (NEGATIVE); UROBILINOGEN,URINE 12 MG/DL (0.0-1.0)
[2018-11-03] MEDS ORDERED: Zinc Oxide Oint 2oz TOPIC PRN (13:00)
[2018-11-03 13:01] LABS: COLOR,URINE YELLOW
--- NOTE | 2018-11-03 13:57 | NUR ---
RD ASSESSMENT & RECOMMENDATIONS SEE CARE ACTIVITY FOR COMPLETE ASSESSMENT DAILY ESTIMATED NEEDS: Needs based on Pulmonary, quadriplegia 78kg adj 23-28 kcals/kg 8400-6012 total kcals 1-1.5 g protein/kg 78-117 g total protein 25-30 mL/kg 0086-9268 total fluid mLs NUTRITION DIAGNOSIS: Swallowing difficulty r/t respiratory status as evidenced by pt is vent dep via T-collar, PEJ dep. CURRENT TF:Jevity 1.2 @ 65ml/hr x 24 hrs ENTERAL NUTRITION RECOMMENDATIONS: Jevity 1.2 @ 65ml/hr x 24 hrs to provide 1560ml, 1872 kcal, 87g pro, 1259ml free H2o - WITH HEMODYNAMIC STABILITY, cont to advance TF by 10ml q 4-6 hrs as tolerated to goal rate. - Water flush of 200ml q 6 hrs for additional 800ml free water. - HOB over 30 degrees WITHOUT HEMODYNAMIC STABILITY, rec trophic feeding of Jevity 1.2 @ 15-20ml/hr ADDITIONAL RECOMMENDATIONS: 1) Monitor lytes daily, replete as needed 2) Re-evaluate TF recs if Synthroid readded (DC'ed at this time) 3) Monitor hemodynamic stability 4) Monitor BG on TF's and need for hypoglycemic agent 5) Calibrated bed scale wt- bed w/ added P200 mattress 6) SOUP MIXER eval prior to any oral diet: Pt on ORAL DIET + TF RESIDENT PROGRAM SPECIALIST .
[2018-11-03] MEDS: Metoprolol 25mg tab GT SCH ×2 (13:58→21:44)
[2018-11-03] MEDS: Meropenem 1 GM in NS 55 ML IVPB SCH ×2 (14:09→21:44)
--- NOTE | 2018-11-03 14:23 | NUR ---
CUSTOMER RELATIONS SPECIALISTSHIP'S ENGINEER SI: HYPOTENSION S/P PEG PLACEMENT, S/P RAPID RESPONSE T. 96.7 HR 84 RR 20 B/P 82/65 ALK PHOS 381 UA+ PROTEIN,BILIRUBIN,UROBILINOGEN,LEUKOCYTE ESTERASE,RBC,WBC,SQUAMOUS EPITH CELLS CXR= NO CHANGES IS: IV BOLUS NS X 1 LITER CEFEPIME IV MEROPENEM IV LEVOPHED GTT ICU STATUS
[2018-11-03] MEDS ORDERED: Acetaminophen 650 MG SUPP RECTAL PRN (14:45)
--- NOTE | 2018-11-03 15:59 | NUR ---
NURSE NOTES: Pt appears to be resting comfortably in bed. Able to make needs known. Denies pain. B/P 90/62. The patient's bed in the lowest position. Will continue to monitor.
--- NOTE | 2018-11-03 16:28 | Internal Med Progress Note ---
Subjective Date of Service: Nov 03, 2018 Physician Name Isidro Hernandez Attending Physician Bruno Ko MD Current Medications Medications (Trade) Dose Ordered Sig/Vicenta Route PRN Reason Start Time Stop Time Status Last Admin Dose Admin Acetaminophen (Tylenol) 650 mg Q4H PRN ORAL fever 11/03/18 12:30 11/27/18 12:29 Acetaminophen (Tylenol) 650 mg Q4H PRN RECTAL Mild Pain (Pain Scale 1-3) 11/03/18 14:45 11/28/18 10:44 Chlorhexidine Gluconate (Caitlyn-Hex 2%) 1 applic DAILY@2000 TOPIC 11/03/18 20:00 11/28/18 19:59 Dextrose (Dextrose 50%) 25 ml Q30M PRN IV Hypoglycemia 11/03/18 12:30 11/27/18 14:29 Dextrose (Dextrose 50%) 50 ml Q30M PRN IV Hypoglycemia 11/03/18 12:30 11/27/18 14:29 Docusate Sodium (Colace) 100 mg BID GT 11/03/18 18:00 12/03/18 17:59 Gabapentin (Neurontin) 600 mg Q6HR GT 11/03/18 12:00 11/27/18 17:59 Heparin Sodium (Porcine) (Heparin 5000 units/ml) 5,000 units EVERY 12 HOURS SUBQ 11/03/18 21:00 11/27/18 20:59 Levetiracetam 100 ml @ 400 mls/hr Q12HR IVPB 11/03/18 21:00 11/30/18 20:59 Lorazepam (Ativan 2mg/ml 1ml) 1 mg Q4H PRN IV agitation 11/03/18 12:11 11/10/18 12:10 Meropenem 1 gm/ Sodium Chloride 55 ml @ 110 mls/hr Q8HR IVPB 11/03/18 14:00 11/08/18 13:59 11/03/18 14:09 Metoclopramide HCl (Reglan) 10 mg Q6H PRN IVP severe nausea 11/03/18 12:11 12/03/18 12:10 Metoprolol Tartrate (Lopressor) 25 mg Q8HR GT 11/03/18 14:00 12/02/18 21:59 Mineral Oil (Fleet's Mineral Oil Enema) 133 ml EVERY OTHER DAY RECTAL 11/04/18 09:00 11/30/18 08:59 Morphine Sulfate (Morphine Sulfate) 2 mg Q4H PRN IVP severe Pain (Pain Scale 7-10) 11/03/18 12:12 11/10/18 12:11 Nitroglycerin (Ntg) 0.4 mg Q5M X 3 DOSES PRN SL Prn Chest Pain 11/03/18 12:12 12/03/18 12:11 Norepinephrine Bitartrate 4 mg/ Dextrose 250 ml @ 0 mls/hr Q24H IV 11/03/18 13:00 12/03/18 12:59 Pantoprazole (Protonix) 40 mg DAILY IV 11/04/18 09:00 11/28/18 08:59 Polyethylene Glycol (Miralax) 17 gm BEDTIME GT 11/03/18 21:00 12/03/18 20:59 Polyethylene Glycol (Miralax) 17 gm HSPRN PRN GT Constipation 11/03/18 12:12 12/03/18 12:11 Temazepam (Restoril) 15 mg HSPRN PRN GT Insomnia 11/03/18 12:30 11/04/18 12:29 Zinc Oxide (Zinc Oxide) 1 applic TIDPRN PRN TOPIC around g tube site 11/03/18 13:00 12/03/18 12:59 Allergies: Coded Allergies: SULFAMETHOXAZOLE (Verified Allergy, Unknown, 10/18/17) TRIMETHOPRIM (Verified Allergy, Unknown, 10/18/17) ROS Limited/Unobtainable: Yes Subjective 57 YO M admitted with J-tube malfunction. Now sepsis. Cover for Int Med-Dr Ko. S/P endoscopy 11/02/18. ICU Objective Last Vital Signs Date Time Temp Pulse Resp B/P (MAP) Pulse Ox O2 Delivery O2 Flow Rate FiO2 11/03/18 15:00 94 17 94/63 (73) 100 11/03/18 12:55 Trach Collar 6.0 28 11/03/18 12:00 96.7 Laboratory Tests Test 11/03/18 06:50 11/03/18 12:40 White Blood Count 5.6 K/UL (4.8-10.8) Red Blood Count 4.14 M/UL (4.70-6.10) L Hemoglobin 12.0 G/DL (14.2-18.0) L Hematocrit 37.1 % (42.0-52.0) L Mean Corpuscular Volume 90 FL (80-99) Mean Corpuscular Hemoglobin 29.1 PG (27.0-31.0) Mean Corpuscular Hemoglobin Concent 32.4 G/DL (32.0-36.0) Red Cell Distribution Width 18.5 % (11.6-14.8) H Platelet Count 173 K/UL (150-450) Mean Platelet Volume 6.5 FL (6.5-10.1) Neutrophils (%) (Auto) 65.1 % (45.0-75.0) Lymphocytes (%) (Auto) 22.5 % (20.0-45.0) Monocytes (%) (Auto) 7.2 % (1.0-10.0) Eosinophils (%) (Auto) 4.0 % (0.0-3.0) H Basophils (%) (Auto) 1.1 % (0.0-2.0) Sodium Level 139 MMOL/L (136-145) Potassium Level 3.7 MMOL/L (3.5-5.1) Chloride Level 107 MMOL/L (98-107) Carbon Dioxide Level 24 MMOL/L (21-32) Anion Gap 8 mmol/L (5-15) Blood Urea Nitrogen 7 mg/dL (7-18) Creatinine 0.5 MG/DL (0.55-1.30) L Estimat Glomerular Filtration Rate > 60 mL/min (>60) Glucose Level 114 MG/DL (74-106) H Uric Acid 2.4 MG/DL (2.6-7.2) L Calcium Level 8.3 MG/DL (8.5-10.1) L Phosphorus Level 3.7 MG/DL (2.5-4.9) Magnesium Level 2.4 MG/DL (1.8-2.4) Total Bilirubin 3.6 MG/DL (0.2-1.0) H Direct Bilirubin 2.1 MG/DL (0.0-0.3) H Aspartate Amino Transf (AST/SGOT) 24 U/L (15-37) Alanine Aminotransferase (ALT/SGPT) 25 U/L (12-78) Alkaline Phosphatase 381 U/L (46-116) H C-Reactive Protein, Quantitative 12.3 mg/dL (0.00-0.90) H Pro-B-Type Natriuretic Peptide 153 pg/mL (0-125) H Total Protein 6.9 G/DL (6.4-8.2) Albumin 2.1 G/DL (3.4-5.0) L Globulin 4.8 g/dL Albumin/Globulin Ratio 0.4 (1.0-2.7) L Urine Color Yellow Urine Appearance Clear Urine pH 6.5 (4.5-8.0) Urine Specific Monitor 1.010 (1.005-1.035) Urine Protein 2+ (NEGATIVE) H Urine Glucose (UA) Negative (NEGATIVE) Urine Ketones Negative (NEGATIVE) Urine Blood 2+ (NEGATIVE) H Urine Nitrite Negative (NEGATIVE) Urine Bilirubin 1+ (NEGATIVE) H Urine Ictotest Negative (NEGATIVE) Urine Urobilinogen 12 MG/DL (0.0-1.0) H Urine Leukocyte Esterase 3+ (NEGATIVE) H Urine RBC 5-10 /HPF (0 - 0) H Urine WBC 20-30 /HPF (0 - 0) H Urine Squamous Epithelial Cells Moderate /LPF (NONE/OCC) H Urine Bacteria Few /HPF (NONE) Microbiology Date/Time Source Procedure Growth Status 10/31/18 21:30 Sputum Gram Stain - Final Resulted 10/31/18 21:30 Sputum Culture - Preliminary A.baumanii Complx - Mdr Usual Respiratory Nataly Resulted 11/01/18 03:00 Abdomen Gram Stain - Final Resulted 11/01/18 03:00 Wound Culture - Preliminary A.baumanii Complx - Mdr Resulted Intake and Output 11/02/18 11/03/18 19:00 07:00 Intake Total 325 ml 842.5 ml Output Total 550 ml 400 ml Balance -225 ml 442.5 ml IV Total 300 ml 442.5 ml Tube Feeding 25 ml 400 ml Output Urine Total 550 ml 400 ml # Voids 3 # Bowel Movements 3 Objective PHYSICAL EXAMINATION: GENERAL: The patient is a well-developed and well-nourished white male, in no apparent distress. HEENT: Eyes, pupils are equal and responsive to light and accommodation. Extraocular movements are intact. NECK: Supple without lymphadenopathy. CHEST: Lungs are clear to auscultation bilaterally without wheezes or rales. CARDIOVASCULAR: Regular rhythm and rate. S1 and S2 are normal without murmurs, rubs, or gallops. ABDOMEN: Soft, nontender, and nondistended. Positive bowel sounds. No evidence of hepatosplenomegaly. Currently, no rebound or guarding noted. EXTREMITIES: Negative for clubbing, cyanosis, or edema. RECTAL/GENITAL: Not performed. NEUROLOGIC: Cranial nerves II through XII are grossly intact without focal deficits. Motor strength is 5/5 bilaterally. Deep tendon reflexes are 2+ plantar. Assessment/Plan Assessment/Plan ASSESSMENT: This is a 57-year-old male. 1. Gastrostomy tube malfunction. 2. Respiratory failure. 3. Seizure disorder. 4. Chronic obstructive pulmonary disease. 5. Gastroesophageal reflux disease. 6. Neurogenic bladder. 7. Hypothyroidism. 8. Quadriplegia. 9. Tracheostomy in situ. 10. Sepsis=ESBL Proteus mirabilis TREATMENT: 1. J-tube malfunction. A Gastroenterology consultation has been obtained with Dr. Kvng Lehman. scheduled endoscopic replacement of J-tube on October 30, 2018 postponed due to hypokalemia. Reschedule per GI 2. Respiratory failure. A Pulmonary consultation has been obtained with Dr. Mellissa Garcia. Continue DuoNebs as above. 3. Seizure disorder. Continue Keppra and Neurontin as above. 4. Chronic obstructive pulmonary disease. As above, a Pulmonary consultation has been obtained with Dr. Mellissa Garcia. 5. Gastroesophageal reflux disease. Continue famotidine as above. 6. Neurogenic bladder. The patient is status post suprapubic catheter placement. 7. Hypothyroidism. Continue Levoxyl as above. 8. Quadriplegia. 9. Tracheostomy in situ. 10. Hypokalemia. Replace K+ 11. ABX=meropenem per ID 12. S/P endoscopy with jejunostomy tube placed 11/02/18 Isidro Hernandez MD Nov 03, 2018 16:28
--- NOTE | 2018-11-03 16:41 | Cardiac Electrophysiology PN ---
Assessment/Plan Assessment/Plan 1. Tachycardia, mostly sinus tachycardia. On metoprolol 25 mg GT every 8 hours 2. Severe hypokalemia. Corrected 3. Dysphagia, status post GJ-tube malfunction. S/P new GJ-tube placement 11/02/18 4. History of respiratory failure, currently off the ventilator, tracheostomy in place 5. Seizure disorder. 6. COPD. 7. Gastroesophageal reflux disease. 8. Neurogenic bladder status post suprapubic catheter. 9. Hypothyroidism. 10. Quadriplegia. 11. Transient hypotension. Resolved with iv fluids. Levophed is back up DW RN Subjective Subjective Transferred to ICU for hypotension but improved with iv fluids. Did not need pressors. Off the Vent on T tube Objective Last 24 Hour Vital Signs Date Time Temp Pulse Resp B/P (MAP) Pulse Ox O2 Delivery O2 Flow Rate FiO2 11/03/18 16:00 T-piece 11/03/18 16:00 96.7 96 24 119/85 (96) 99 11/03/18 15:00 94 17 94/63 (73) 100 11/03/18 14:00 88 20 132/93 (106) 100 11/03/18 13:58 83 102/68 11/03/18 13:00 83 24 102/68 (79) 100 11/03/18 13:00 102/68 11/03/18 12:55 98 Trach Collar 6.0 28 11/03/18 12:00 96.7 84 20 82/65 (71) 100 11/03/18 11:00 87 21 121/79 (93) 100 11/03/18 11:00 T-piece 11/03/18 10:59 97.8 85 20 80/48 (59) 96 11/03/18 10:50 97.8 84 20 81/50 (60) 97 11/03/18 10:46 98.0 80 18 70/40 (50) 99 11/03/18 10:45 98.0 88 20 78/49 (59) 96 11/03/18 09:15 104 24 97 11/03/18 09:00 Trach Collar 11/03/18 08:00 97.8 107 20 133/76 (95) 99 11/03/18 08:00 99 11/03/18 07:02 97 Trach Collar 6.0 28 11/03/18 05:07 101 112/56 11/03/18 04:00 101 11/03/18 04:00 98.0 95 18 112/56 (74) 97 11/03/18 01:05 99 Trach Collar 6.0 28 11/03/18 00:02 106 119/72 11/03/18 00:00 97.5 95 19 127/77 (94) 99 11/03/18 00:00 94 11/02/18 21:00 Trach Collar 11/02/18 20:00 105 11/02/18 20:00 97.7 106 18 119/72 (88) 95 11/02/18 19:55 98 Trach Collar 6.0 28 Intake and Output 11/02/18 11/03/18 19:00 07:00 Intake Total 325 ml 842.5 ml Output Total 550 ml 400 ml Balance -225 ml 442.5 ml IV Total 300 ml 442.5 ml Tube Feeding 25 ml 400 ml Output Urine Total 550 ml 400 ml # Voids 3 # Bowel Movements 3 Laboratory Tests Test 11/03/18 06:50 11/03/18 12:40 White Blood Count 5.6 K/UL (4.8-10.8) Red Blood Count 4.14 M/UL (4.70-6.10) L Hemoglobin 12.0 G/DL (14.2-18.0) L Hematocrit 37.1 % (42.0-52.0) L Mean Corpuscular Volume 90 FL (80-99) Mean Corpuscular Hemoglobin 29.1 PG (27.0-31.0) Mean Corpuscular Hemoglobin Concent 32.4 G/DL (32.0-36.0) Red Cell Distribution Width 18.5 % (11.6-14.8) H Platelet Count 173 K/UL (150-450) Mean Platelet Volume 6.5 FL (6.5-10.1) Neutrophils (%) (Auto) 65.1 % (45.0-75.0) Lymphocytes (%) (Auto) 22.5 % (20.0-45.0) Monocytes (%) (Auto) 7.2 % (1.0-10.0) Eosinophils (%) (Auto) 4.0 % (0.0-3.0) H Basophils (%) (Auto) 1.1 % (0.0-2.0) Sodium Level 139 MMOL/L (136-145) Potassium Level 3.7 MMOL/L (3.5-5.1) Chloride Level 107 MMOL/L (98-107) Carbon Dioxide Level 24 MMOL/L (21-32) Anion Gap 8 mmol/L (5-15) Blood Urea Nitrogen 7 mg/dL (7-18) Creatinine 0.5 MG/DL (0.55-1.30) L Estimat Glomerular Filtration Rate > 60 mL/min (>60) Glucose Level 114 MG/DL (74-106) H Uric Acid 2.4 MG/DL (2.6-7.2) L Calcium Level 8.3 MG/DL (8.5-10.1) L Phosphorus Level 3.7 MG/DL (2.5-4.9) Magnesium Level 2.4 MG/DL (1.8-2.4) Total Bilirubin 3.6 MG/DL (0.2-1.0) H Direct Bilirubin 2.1 MG/DL (0.0-0.3) H Aspartate Amino Transf (AST/SGOT) 24 U/L (15-37) Alanine Aminotransferase (ALT/SGPT) 25 U/L (12-78) Alkaline Phosphatase 381 U/L (46-116) H C-Reactive Protein, Quantitative 12.3 mg/dL (0.00-0.90) H Pro-B-Type Natriuretic Peptide 153 pg/mL (0-125) H Total Protein 6.9 G/DL (6.4-8.2) Albumin 2.1 G/DL (3.4-5.0) L Globulin 4.8 g/dL Albumin/Globulin Ratio 0.4 (1.0-2.7) L Urine Color Yellow Urine Appearance Clear Urine pH 6.5 (4.5-8.0) Urine Specific [place] 1.010 (1.005-1.035) Urine Protein 2+ (NEGATIVE) H Urine Glucose (UA) Negative (NEGATIVE) Urine Ketones Negative (NEGATIVE) Urine Blood 2+ (NEGATIVE) H Urine Nitrite Negative (NEGATIVE) Urine Bilirubin 1+ (NEGATIVE) H Urine Ictotest Negative (NEGATIVE) Urine Urobilinogen 12 MG/DL (0.0-1.0) H Urine Leukocyte Esterase 3+ (NEGATIVE) H Urine RBC 5-10 /HPF (0 - 0) H Urine WBC 20-30 /HPF (0 - 0) H Urine Squamous Epithelial Cells Moderate /LPF (NONE/OCC) H Urine Bacteria Few /HPF (NONE) Microbiology Date/Time Source Procedure Growth Status 10/31/18 21:30 Sputum Gram Stain - Final Resulted 10/31/18 21:30 Sputum Culture - Preliminary A.baumanii Complx - Mdr Usual Respiratory Nataly Resulted 11/01/18 03:00 Abdomen Gram Stain - Final Resulted 11/01/18 03:00 Wound Culture - Preliminary A.baumanii Complx - Mdr Resulted Objective HEAD AND NECK: No JVD or carotid bruits. Status post tracheostomy. LUNGS: Coarse rhonchi. CARDIOVASCULAR: Shows regular S1 and S2 with no gallop or murmur. ABDOMEN: Soft. The GJ-tube is out. EXTREMITIES: No pitting edema. Rai Dobbs MD Nov 03, 2018 16:41
[2018-11-03] MEDS: Docusate 100mg tablet GT SCH (17:00)
[2018-11-03] MEDS ORDERED: Docusate 100mg tablet ORAL SCH (18:00)
--- NOTE | 2018-11-03 18:30 | NUR ---
NURSE NOTES: The patient's vital signs stable without acute distress noted. Will continue to monitor the patient.
--- NOTE | 2018-11-03 19:34 | NUR ---
HAND-OFF: Report given to OPAL Nicholson.
[2018-11-03] MEDS: Dyna-Hex 2% Top Sol 2oz TOPIC SCH (20:00)
--- NOTE | 2018-11-03 20:00 | NUR ---
NURSE NOTES: pt awake and alert on trach collar 28 o/o o2 sat 100 o/o had large soft bm complete bed bath done reposition AND SUCTION
[2018-11-03] MEDS ORDERED: Miralax 17gm pkt ORAL SCH (21:00)
[2018-11-03] MEDS: Miralax 17gm pkt GT SCH (21:00)
[2018-11-03] MEDS ORDERED: Cefepime HCl 1 GM in D5W 55 ML IVPB SCH (21:00)
[2018-11-04] VITALS (38 sets, daily range): BP systolic 77–133; BP diastolic 46–84
--- NOTE | 2018-11-04 | NUR ---
NURSE NOTES: reposition and suction tolerating tube feeding no residual sleeping at interval
--- NOTE | 2018-11-04 02:00 | NUR ---
NURSE NOTES: sleeping at short interval at short interval
--- NOTE | 2018-11-04 04:00 | NUR ---
NURSE NOTES: complete bed bath oral care done reposition and suction
[2018-11-04 05:20] LABS: BASOPHILS % (AUTO) 0.6 % (0.0-2.0); HEMATOCRIT 40.3 % (42.0-52.0); HEMOGLOBIN 12.9 G/DL (14.2-18.0); LYMPHOCYTES % (AUTO) 10.7 % (20.0-45.0); MEAN CORPUSCULAR VOLUME 90 FL (80-99); MONOCYTES % (AUTO) 6.5 % (1.0-10.0); NEUTROPHILS % (AUTO) 80.2 % (45.0-75.0); PLATELET COUNT 250 K/UL (150-450); RED CELL DISTRIBUTION WIDTH 18.6 % (11.6-14.8); WHITE BLOOD COUNT 7.4 K/UL (4.8-10.8)
--- NOTE | 2018-11-04 05:35 | NUR ---
Patient on 28% cool aerosol via trach collar SpO2 100%. Received pt. with pmv on but removed and placed at pt bedside at 21:30. Lung sounds been diminished suctioned airway for scant amount of thick white secretions. Trach remains secured and patent, trach care done per policy.
[2018-11-04] MEDS: Gabapentin 300 MG/6 ML Soln GT SCH ×4 (05:44→23:57)
[2018-11-04] MEDS: Metoprolol 25mg tab GT SCH ×3 (05:45→21:19)
[2018-11-04] MEDS: Meropenem 1 GM in NS 55 ML IVPB SCH ×3 (05:46→21:15)
[2018-11-04 05:48] LABS: ALANINE AMINOTRANSFERASE 29 U/L (12-78); ALBUMIN 2.3 G/DL (3.4-5.0); ALBUMIN/GLOBULIN RATIO 0.5 (1.0-2.7); ALKALINE PHOSPHATASE 456 U/L (46-116); ANION GAP 6 mmol/L (5-15); ASPARTATE AMINO TRANSFERASE 31 U/L (15-37); BILIRUBIN,TOTAL 2.7 MG/DL (0.2-1.0); BLOOD UREA NITROGEN 8 mg/dL (7-18); CALCIUM 8.4 MG/DL (8.5-10.1); CARBON DIOXIDE 27 MMOL/L (21-32); CHLORIDE 109 MMOL/L (98-107); CREATININE 0.5 MG/DL (0.55-1.30); PHOSPHORUS 2.6 MG/DL (2.5-4.9); POTASSIUM 3.4 MMOL/L (3.5-5.1); SODIUM 142 MMOL/L (136-145)
--- NOTE | 2018-11-04 06:00 | NUR ---
NURSE NOTES: asleep no acute disterss note reposition and suction
[2018-11-04 06:10] LABS: BILIRUBIN,DIRECT 1.5 MG/DL (0.0-0.3)
--- NOTE | 2018-11-04 07:29 | NUR ---
NURSE NOTES: RECEIVED PATIENT FROM Olga WANG RN. PATIENT IS LYING IN BED AWAKE, ABLE TO OPEN EYES. HOOKED TO FOOT ROENTGENOLOGIST. HR OF 113. SATING AT 99-100%. NO SIGNS OF DISTRESS OF THE MOMENT. ON TRACH COLLAR AT 28%. GT NOTED. ON JEVITY AT 65ML/HR. CONDOM CATH NOTED AND SUPRAPUBIC CATH ON CONNECTED TO BAG, PATENT AND DRAINING URINE. PERIANAL REDNESS DUE TO INCONTINENCE. ON OVERLAY MATTRESS. SIDE RAILS UP AND PADDED. BED AT LOWEST POSITION. WILL CONTINUE TO MONITOR.
--- NOTE | 2018-11-04 07:31 | NUR ---
HAND-OFF: Report given to yue boswell using sbar .
--- NOTE | 2018-11-04 07:46 | NUR ---
NURSE NOTES: SEEN AND EXAMINED BY DR BUTLER, IRRIGATED SUPRAPUBIC CATH. NO SIGNS OF DISTRESS. WILL CONTINUE TO MONITOR.
[2018-11-04] MEDS: Docusate 100mg tablet GT SCH ×2 (08:28→17:07)
[2018-11-04] MEDS: levETIRAcetam 500mg/NS100ml 100 ML IVPB SCH ×2 (08:28→20:27)
[2018-11-04] MEDS: Pantoprazole Inj IV SCH (08:29)
--- NOTE | 2018-11-04 08:39 | Cardiology Progress Note ---
Assessment/Plan Status: stable Assessment/Plan Assessment/Plan Assessment/Plan 1. Tachycardia On metoprolol 25 mg GT every 8 hours Continue telemetry 2. Severe hypokalemia. Resolved 3. Dysphagia, status post GJ-tube malfunction. S/P new GJ-tube placement 11/02/18 4. History of respiratory failure, currently off the ventilator, tracheostomy in place 5. Seizure disorder. stable 6. COPD. Continue pulmonary toilet, stable on trach collar 7. Gastroesophageal reflux disease. PPI BID 8. Neurogenic bladder status post suprapubic catheter. Irrigated per urology 9. Hypothyroidism. Continue replacement 10. Quadriplegia. PT/OT 11. Transient hypotension Resolved Subjective Cardiovascular: Reports: no symptoms Respiratory: Reports: no symptoms Gastrointestinal/Abdominal: Reports: no symptoms Genitourinary: Reports: no symptoms Subjective Coverage for Rinku Remains in ICU on trach collar, tolerated feeds, suprapubic cath irrigated, remains tachycardic, BP stable Objective Last 24 Hour Vital Signs Date Time Temp Pulse Resp B/P (MAP) Pulse Ox O2 Delivery O2 Flow Rate FiO2 11/04/18 07:19 99 Trach Collar 6.0 28 11/04/18 07:00 116 10 133/51 (78) 97 11/04/18 06:00 120 10 104/51 (68) 97 11/04/18 05:45 120 100/56 11/04/18 05:00 120 10 85/51 (62) 97 11/04/18 04:00 120 11/04/18 04:00 98.5 124 30 100/56 (71) 97 11/04/18 04:00 28.0 11/04/18 03:00 120 30 96/63 (74) 99 11/04/18 02:00 110 29 91/58 (69) 98 11/04/18 01:42 98 Trach Collar 6.0 28 11/04/18 00:58 117 28 92/55 (67) 99 11/04/18 00:00 28.0 11/04/18 00:00 T-piece 11/04/18 00:00 118 11/04/18 00:00 98.8 114 28 101/62 (75) 99 118 11/03/18 23:00 107 24 90/45 (60) 98 11/03/18 22:00 115 24 111/76 (88) 99 11/03/18 21:44 105 111/78 11/03/18 21:00 115 26 112/67 (82) 99 11/03/18 20:00 28.0 11/03/18 20:00 98.0 111 27 111/68 (82) 99 11/03/18 20:00 114 11/03/18 20:00 T-piece 11/03/18 19:13 100 Trach Collar 6.0 28 11/03/18 19:00 103 24 102/67 (79) 100 11/03/18 18:00 96 22 95/65 (75) 100 11/03/18 17:00 92 21 98/65 (76) 100 11/03/18 16:00 T-piece 11/03/18 16:00 96.7 96 24 119/85 (96) 99 11/03/18 16:00 88 11/03/18 15:00 94 17 94/63 (73) 100 11/03/18 14:00 88 20 132/93 (106) 100 11/03/18 13:58 83 102/68 11/03/18 13:00 83 24 102/68 (79) 100 11/03/18 13:00 102/68 11/03/18 12:55 98 Trach Collar 6.0 28 11/03/18 12:00 96.7 84 20 82/65 (71) 100 11/03/18 11:29 87 11/03/18 11:00 87 21 121/79 (93) 100 11/03/18 11:00 T-piece 11/03/18 10:59 97.8 85 20 80/48 (59) 96 11/03/18 10:50 97.8 84 20 81/50 (60) 97 11/03/18 10:46 98.0 80 18 70/40 (50) 99 11/03/18 10:45 98.0 88 20 78/49 (59) 96 11/03/18 09:15 104 24 97 11/03/18 09:00 Trach Collar General Appearance: no apparent distress, alert EENT: PERRL/EOMI, normal ENT inspection, TMs normal, pharynx normal Neck: non-tender, normal alignment, supple, normal inspection, no JVD Rhythm: ST Cardiovascular: normal peripheral pulses, regular rhythm, tachycardia Respiratory/Chest: crackles/rales, rhonchi - bilaterally Abdomen: normal bowel sounds, non tender, soft, no organomegaly Extremities: normal range of motion, non-tender, normal inspection Neurologic: senior software tester II-XII grossly normal, no motor/sensory deficits Intake and Output 11/03/18 11/04/18 19:00 07:00 Intake Total 1200 ml 1390 ml Output Total 1025 ml 1240 ml Balance 175 ml 150 ml Free Water 200 ml 400 ml IV Total 355 ml 210 ml Tube Feeding 645 ml 780 ml Output Urine Total 1025 ml 590 ml Other 650 ml # Voids 1 # Bowel Movements 3 2 Laboratory Tests Test 11/03/18 12:40 11/04/18 04:30 Urine Color Yellow Urine Appearance Clear Urine pH 6.5 (4.5-8.0) Urine Specific [place] 1.010 (1.005-1.035) Urine Protein 2+ (NEGATIVE) H Urine Glucose (UA) Negative (NEGATIVE) Urine Ketones Negative (NEGATIVE) Urine Blood 2+ (NEGATIVE) H Urine Nitrite Negative (NEGATIVE) Urine Bilirubin 1+ (NEGATIVE) H Urine Ictotest Negative (NEGATIVE) Urine Urobilinogen 12 MG/DL (0.0-1.0) H Urine Leukocyte Esterase 3+ (NEGATIVE) H Urine RBC 5-10 /HPF (0 - 0) H Urine WBC 20-30 /HPF (0 - 0) H Urine Squamous Epithelial Cells Moderate /LPF (NONE/OCC) H Urine Bacteria Few /HPF (NONE) White Blood Count 7.4 K/UL (4.8-10.8) Red Blood Count 4.50 M/UL (4.70-6.10) L Hemoglobin 12.9 G/DL (14.2-18.0) L Hematocrit 40.3 % (42.0-52.0) L Mean Corpuscular Volume 90 FL (80-99) Mean Corpuscular Hemoglobin 28.6 PG (27.0-31.0) Mean Corpuscular Hemoglobin Concent 32.0 G/DL (32.0-36.0) Red Cell Distribution Width 18.6 % (11.6-14.8) H Platelet Count 250 K/UL (150-450) Mean Platelet Volume 6.3 FL (6.5-10.1) L Neutrophils (%) (Auto) 80.2 % (45.0-75.0) H Lymphocytes (%) (Auto) 10.7 % (20.0-45.0) L Monocytes (%) (Auto) 6.5 % (1.0-10.0) Eosinophils (%) (Auto) 2.0 % (0.0-3.0) Basophils (%) (Auto) 0.6 % (0.0-2.0) Sodium Level 142 MMOL/L (136-145) Potassium Level 3.4 MMOL/L (3.5-5.1) L Chloride Level 109 MMOL/L (98-107) H Carbon Dioxide Level 27 MMOL/L (21-32) Anion Gap 6 mmol/L (5-15) Blood Urea Nitrogen 8 mg/dL (7-18) Creatinine 0.5 MG/DL (0.55-1.30) L Estimat Glomerular Filtration Rate > 60 mL/min (>60) Glucose Level 140 MG/DL (74-106) H Calcium Level 8.4 MG/DL (8.5-10.1) L Phosphorus Level 2.6 MG/DL (2.5-4.9) Magnesium Level 2.0 MG/DL (1.8-2.4) Total Bilirubin 2.7 MG/DL (0.2-1.0) H Direct Bilirubin 1.5 MG/DL (0.0-0.3) H Aspartate Amino Transf (AST/SGOT) 31 U/L (15-37) Alanine Aminotransferase (ALT/SGPT) 29 U/L (12-78) Alkaline Phosphatase 456 U/L (46-116) H Total Protein 7.4 G/DL (6.4-8.2) Albumin 2.3 G/DL (3.4-5.0) L Globulin 5.1 g/dL Albumin/Globulin Ratio 0.5 (1.0-2.7) L Nikita Reddy MD Nov 04, 2018 08:38
--- NOTE | 2018-11-04 08:40 | Urology Progress Note ---
Assessment/Plan Status: stable Assessment/Plan: 1. Urinary retention with chronic suprapubic tube. 2. Neurogenic bladder. 3. Hydronephrosis, which appears to be chronic. 4. Nephrolithiasis. 5. Cystitis. 6. Hematuria. 7. Probable colonized urine. 8. Sepsis. monitor clinically keep SP tube, last exchanged 10/24 hand irrigated and do PRN position satisfactory, leakage from penis abx as ordered f/u on final blood cx consider nuclear renal scan Subjective Allergies: Coded Allergies: SULFAMETHOXAZOLE (Verified Allergy, Unknown, 10/18/17) TRIMETHOPRIM (Verified Allergy, Unknown, 10/18/17) Subjective transferred to ICU for low BP, some decreased SP tube output Objective Last 24 Hour Vital Signs Date Time Temp Pulse Resp B/P (MAP) Pulse Ox O2 Delivery O2 Flow Rate FiO2 11/04/18 07:19 99 Trach Collar 6.0 28 11/04/18 07:00 116 10 133/51 (78) 97 11/04/18 06:00 120 10 104/51 (68) 97 11/04/18 05:45 120 100/56 11/04/18 05:00 120 10 85/51 (62) 97 11/04/18 04:00 120 11/04/18 04:00 98.5 124 30 100/56 (71) 97 11/04/18 04:00 28.0 11/04/18 03:00 120 30 96/63 (74) 99 11/04/18 02:00 110 29 91/58 (69) 98 11/04/18 01:42 98 Trach Collar 6.0 28 11/04/18 00:58 117 28 92/55 (67) 99 11/04/18 00:00 28.0 11/04/18 00:00 T-piece 11/04/18 00:00 118 11/04/18 00:00 98.8 114 28 101/62 (75) 99 118 11/03/18 23:00 107 24 90/45 (60) 98 11/03/18 22:00 115 24 111/76 (88) 99 11/03/18 21:44 105 111/78 11/03/18 21:00 115 26 112/67 (82) 99 11/03/18 20:00 28.0 11/03/18 20:00 98.0 111 27 111/68 (82) 99 11/03/18 20:00 114 11/03/18 20:00 T-piece 11/03/18 19:13 100 Trach Collar 6.0 28 11/03/18 19:00 103 24 102/67 (79) 100 11/03/18 18:00 96 22 95/65 (75) 100 11/03/18 17:00 92 21 98/65 (76) 100 11/03/18 16:00 T-piece 11/03/18 16:00 96.7 96 24 119/85 (96) 99 11/03/18 16:00 88 11/03/18 15:00 94 17 94/63 (73) 100 11/03/18 14:00 88 20 132/93 (106) 100 11/03/18 13:58 83 102/68 11/03/18 13:00 83 24 102/68 (79) 100 11/03/18 13:00 102/68 11/03/18 12:55 98 Trach Collar 6.0 28 11/03/18 12:00 96.7 84 20 82/65 (71) 100 11/03/18 11:29 87 11/03/18 11:00 87 21 121/79 (93) 100 11/03/18 11:00 T-piece 11/03/18 10:59 97.8 85 20 80/48 (59) 96 11/03/18 10:50 97.8 84 20 81/50 (60) 97 11/03/18 10:46 98.0 80 18 70/40 (50) 99 11/03/18 10:45 98.0 88 20 78/49 (59) 96 11/03/18 09:15 104 24 97 11/03/18 09:00 Trach Collar Intake and Output 11/03/18 11/04/18 19:00 07:00 Intake Total 1200 ml 1390 ml Output Total 1025 ml 1240 ml Balance 175 ml 150 ml Free Water 200 ml 400 ml IV Total 355 ml 210 ml Tube Feeding 645 ml 780 ml Output Urine Total 1025 ml 590 ml Other 650 ml # Voids 1 # Bowel Movements 3 2 Microbiology Date/Time Source Procedure Growth Status 10/31/18 13:30 Blood Blood Culture - Preliminary NO GROWTH AFTER 72 HOURS Resulted 10/31/18 21:30 Sputum Gram Stain - Final Complete 10/31/18 21:30 Sputum Culture - Final A.baumanii Complx - Mdr Usual Respiratory Nataly Complete 11/01/18 03:00 Abdomen Gram Stain - Final Resulted 11/01/18 03:00 Wound Culture - Preliminary A.baumanii Complx - Mdr Resulted Current Medications Medications (Trade) Dose Ordered Sig/Vicenta Route PRN Reason Start Time Stop Time Status Last Admin Dose Admin Acetaminophen (Tylenol) 650 mg Q4H PRN ORAL fever 11/03/18 12:30 11/27/18 12:29 Acetaminophen (Tylenol) 650 mg Q4H PRN RECTAL Mild Pain (Pain Scale 1-3) 11/03/18 14:45 11/28/18 10:44 Chlorhexidine Gluconate (Caitlyn-Hex 2%) 1 applic DAILY@2000 TOPIC 11/03/18 20:00 11/28/18 19:59 11/03/18 20:00 Dextrose (Dextrose 50%) 25 ml Q30M PRN IV Hypoglycemia 11/03/18 12:30 11/27/18 14:29 Dextrose (Dextrose 50%) 50 ml Q30M PRN IV Hypoglycemia 11/03/18 12:30 11/27/18 14:29 Docusate Sodium (Colace) 100 mg BID GT 11/03/18 18:00 12/03/18 17:59 Gabapentin (Neurontin) 600 mg Q6HR GT 11/03/18 12:00 11/27/18 17:59 11/04/18 05:44 Heparin Sodium (Porcine) (Heparin 5000 units/ml) 5,000 units EVERY 12 HOURS SUBQ 11/03/18 21:00 11/27/18 20:59 11/03/18 21:42 Levetiracetam 100 ml @ 400 mls/hr Q12HR IVPB 11/03/18 21:00 11/30/18 20:59 11/04/18 08:28 Lorazepam (Ativan 2mg/ml 1ml) 1 mg Q4H PRN IV agitation 11/03/18 12:11 11/10/18 12:10 Meropenem 1 gm/ Sodium Chloride 55 ml @ 110 mls/hr Q8HR IVPB 11/03/18 14:00 11/08/18 13:59 11/04/18 05:46 Metoclopramide HCl (Reglan) 10 mg Q6H PRN IVP severe nausea 11/03/18 12:11 12/03/18 12:10 Metoprolol Tartrate (Lopressor) 25 mg Q8HR GT 11/03/18 14:00 12/02/18 21:59 11/04/18 05:45 Mineral Oil (Fleet's Mineral Oil Enema) 133 ml EVERY OTHER DAY RECTAL 11/04/18 09:00 11/30/18 08:59 Morphine Sulfate (Morphine Sulfate) 2 mg Q4H PRN IVP severe Pain (Pain Scale 7-10) 11/03/18 12:12 11/10/18 12:11 Nitroglycerin (Ntg) 0.4 mg Q5M X 3 DOSES PRN SL Prn Chest Pain 11/03/18 12:12 12/03/18 12:11 Norepinephrine Bitartrate 4 mg/ Dextrose 250 ml @ 0 mls/hr Q24H IV 11/03/18 13:00 12/03/18 12:59 Pantoprazole (Protonix) 40 mg DAILY IV 11/04/18 09:00 11/28/18 08:59 11/04/18 08:29 Polyethylene Glycol (Miralax) 17 gm BEDTIME GT 11/03/18 21:00 12/03/18 20:59 Polyethylene Glycol (Miralax) 17 gm HSPRN PRN GT Constipation 11/03/18 12:12 12/03/18 12:11 Potassium Chloride 100 ml @ 100 mls/hr Q1HR IVPB 11/04/18 09:00 11/04/18 12:59 Temazepam (Restoril) 15 mg HSPRN PRN GT Insomnia 11/03/18 12:30 11/04/18 12:29 Zinc Oxide (Zinc Oxide) 1 applic TIDPRN PRN TOPIC around g tube site 11/03/18 13:00 12/03/18 12:59 Laboratory Tests 11/03/18 12:40: Urine Color Yellow, Urine Appearance Clear, Urine pH 6.5, Urine Specific [place] 1.010, Urine Protein 2+H, Urine Glucose (UA) Negative, Urine Ketones Negative, Urine Blood 2+H, Urine Nitrite Negative, Urine Bilirubin 1+H, Urine Ictotest Negative, Urine Urobilinogen 12H, Urine Leukocyte Esterase 3+H, Urine RBC 5-10H, Urine WBC 20-30H, Urine Squamous Epithelial Cells ModerateH, Urine Bacteria Few 11/04/18 04:30: White Blood Count 7.4, Red Blood Count 4.50L, Hemoglobin 12.9L, Hematocrit 40.3L , Mean Corpuscular Volume 90, Mean Corpuscular Hemoglobin 28.6, Mean Corpuscular Hemoglobin Concent 32.0, Red Cell Distribution Width 18.6H, Platelet Count 250, Mean Platelet Volume 6.3L, Neutrophils (%) (Auto) 80.2H, Lymphocytes (%) (Auto) 10.7L, Monocytes (%) (Auto) 6.5, Eosinophils (%) (Auto) 2.0, Basophils (%) (Auto) 0.6, Sodium Level 142, Potassium Level 3.4L, Chloride Level 109H, Carbon Dioxide Level 27, Anion Gap 6, Blood Urea Nitrogen 8, Creatinine 0.5L, Estimat Glomerular Filtration Rate > 60, Glucose Level 140H, Calcium Level 8.4L, Phosphorus Level 2.6, Magnesium Level 2.0, Total Bilirubin 2.7H, Direct Bilirubin 1.5H, Aspartate Amino Transf (AST/SGOT) 31, Alanine Aminotransferase (ALT/SGPT) 29, Alkaline Phosphatase 456H, Total Protein 7.4, Albumin 2.3L, Globulin 5.1, Albumin/Globulin Ratio 0.5L Height (Feet): 5 Height (Inches): 4.00 Weight (Pounds): 203 Objective exam stable SP tube in place, urine remains blood-tinged Ascencion Palomino MD Nov 04, 2018 08:40
[2018-11-04] MEDS: Heparin 5000 units/ml inj SUBQ SCH ×2 (08:50→21:18)
[2018-11-04] MEDS: Fleet's Mineral Oil Enema RECTAL SCH (09:00)
--- NOTE | 2018-11-04 09:44 | NUR ---
NURSE NOTES: SEEN BY DR CANSECO, MADE AWARE OF THE BP. WILL CONTINUE TO MONITOR.
--- NOTE | 2018-11-04 10:17 | Pulmonolgy Critical Care Note ---
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 Respiratory: monitor respiratory rate, adjust FIO2 Cardiac: continue to monitor HR/BP Renal: F/U I&O Infectious Disease: check cultures, continue antibiotics Gastrointestinal: continue feedings/current rate Endocrine: monitor blood sugar, check TSH Hematologic: monitor H/H, transfuse if hgb<8.5 Neurologic: PRN Morphine, keep patient comfortable Prophylaxis: Protonix, Heparin Notes Reviewed: cardio, renal Discussed with: nurses, consultants, telehealth case managerrecovery manager - Objective Last 24 Hour Vital Signs Date Time Temp Pulse Resp B/P (MAP) Pulse Ox O2 Delivery O2 Flow Rate FiO2 11/04/18 07:19 99 Trach Collar 6.0 28 11/04/18 07:00 116 10 133/51 (78) 97 11/04/18 06:00 120 10 104/51 (68) 97 11/04/18 05:45 120 100/56 11/04/18 05:00 120 10 85/51 (62) 97 11/04/18 04:00 120 11/04/18 04:00 98.5 124 30 100/56 (71) 97 11/04/18 04:00 28.0 11/04/18 03:00 120 30 96/63 (74) 99 11/04/18 02:00 110 29 91/58 (69) 98 11/04/18 01:42 98 Trach Collar 6.0 28 11/04/18 00:58 117 28 92/55 (67) 99 11/04/18 00:00 28.0 11/04/18 00:00 T-piece 11/04/18 00:00 118 11/04/18 00:00 98.8 114 28 101/62 (75) 99 118 11/03/18 23:00 107 24 90/45 (60) 98 11/03/18 22:00 115 24 111/76 (88) 99 11/03/18 21:44 105 111/78 11/03/18 21:00 115 26 112/67 (82) 99 11/03/18 20:00 28.0 11/03/18 20:00 98.0 111 27 111/68 (82) 99 11/03/18 20:00 114 11/03/18 20:00 T-piece 11/03/18 19:13 100 Trach Collar 6.0 28 11/03/18 19:00 103 24 102/67 (79) 100 11/03/18 18:00 96 22 95/65 (75) 100 11/03/18 17:00 92 21 98/65 (76) 100 11/03/18 16:00 T-piece 11/03/18 16:00 96.7 96 24 119/85 (96) 99 11/03/18 16:00 88 11/03/18 15:00 94 17 94/63 (73) 100 11/03/18 14:00 88 20 132/93 (106) 100 11/03/18 13:58 83 102/68 11/03/18 13:00 83 24 102/68 (79) 100 11/03/18 13:00 102/68 11/03/18 12:55 98 Trach Collar 6.0 28 11/03/18 12:00 96.7 84 20 82/65 (71) 100 11/03/18 11:29 87 11/03/18 11:00 87 21 121/79 (93) 100 11/03/18 11:00 T-piece 11/03/18 10:59 97.8 85 20 80/48 (59) 96 11/03/18 10:50 97.8 84 20 81/50 (60) 97 11/03/18 10:46 98.0 80 18 70/40 (50) 99 11/03/18 10:45 98.0 88 20 78/49 (59) 96 Status: awake Condition: critical HEENT: atraumatic Lungs: clear, chest wall tender Heart: HR/BP stable Abdomen: soft, non-tender, feeding tube Micro: Microbiology Date/Time Source Procedure Growth Status 11/03/18 12:40 Urine,Clean Catch Urine Culture - Preliminary NO GROWTH Resulted Critical Care - Subjective ROS Limited/Unobtainable: Yes Interval Events: awake, BP remains borderline FI02: 28 Sputum Amount: Moderate Tube Feeding Amount: 65 I&O: Intake and Output 11/03/18 11/04/18 19:00 07:00 Intake Total 1200 ml 1390 ml Output Total 1025 ml 1240 ml Balance 175 ml 150 ml Free Water 200 ml 400 ml IV Total 355 ml 210 ml Tube Feeding 645 ml 780 ml Output Urine Total 1025 ml 590 ml Other 650 ml # Voids 1 # Bowel Movements 3 2 Labs: Laboratory Tests Test 11/03/18 12:40 11/04/18 04:30 Urine Color Yellow Urine Appearance Clear Urine pH 6.5 (4.5-8.0) Urine Specific [place] 1.010 (1.005-1.035) Urine Protein 2+ (NEGATIVE) H Urine Glucose (UA) Negative (NEGATIVE) Urine Ketones Negative (NEGATIVE) Urine Blood 2+ (NEGATIVE) H Urine Nitrite Negative (NEGATIVE) Urine Bilirubin 1+ (NEGATIVE) H Urine Ictotest Negative (NEGATIVE) Urine Urobilinogen 12 MG/DL (0.0-1.0) H Urine Leukocyte Esterase 3+ (NEGATIVE) H Urine RBC 5-10 /HPF (0 - 0) H Urine WBC 20-30 /HPF (0 - 0) H Urine Squamous Epithelial Cells Moderate /LPF (NONE/OCC) H Urine Bacteria Few /HPF (NONE) White Blood Count 7.4 K/UL (4.8-10.8) Red Blood Count 4.50 M/UL (4.70-6.10) L Hemoglobin 12.9 G/DL (14.2-18.0) L Hematocrit 40.3 % (42.0-52.0) L Mean Corpuscular Volume 90 FL (80-99) Mean Corpuscular Hemoglobin 28.6 PG (27.0-31.0) Mean Corpuscular Hemoglobin Concent 32.0 G/DL (32.0-36.0) Red Cell Distribution Width 18.6 % (11.6-14.8) H Platelet Count 250 K/UL (150-450) Mean Platelet Volume 6.3 FL (6.5-10.1) L Neutrophils (%) (Auto) 80.2 % (45.0-75.0) H Lymphocytes (%) (Auto) 10.7 % (20.0-45.0) L Monocytes (%) (Auto) 6.5 % (1.0-10.0) Eosinophils (%) (Auto) 2.0 % (0.0-3.0) Basophils (%) (Auto) 0.6 % (0.0-2.0) Sodium Level 142 MMOL/L (136-145) Potassium Level 3.4 MMOL/L (3.5-5.1) L Chloride Level 109 MMOL/L (98-107) H Carbon Dioxide Level 27 MMOL/L (21-32) Anion Gap 6 mmol/L (5-15) Blood Urea Nitrogen 8 mg/dL (7-18) Creatinine 0.5 MG/DL (0.55-1.30) L Estimat Glomerular Filtration Rate > 60 mL/min (>60) Glucose Level 140 MG/DL (74-106) H Calcium Level 8.4 MG/DL (8.5-10.1) L Phosphorus Level 2.6 MG/DL (2.5-4.9) Magnesium Level 2.0 MG/DL (1.8-2.4) Total Bilirubin 2.7 MG/DL (0.2-1.0) H Direct Bilirubin 1.5 MG/DL (0.0-0.3) H Aspartate Amino Transf (AST/SGOT) 31 U/L (15-37) Alanine Aminotransferase (ALT/SGPT) 29 U/L (12-78) Alkaline Phosphatase 456 U/L (46-116) H Total Protein 7.4 G/DL (6.4-8.2) Albumin 2.3 G/DL (3.4-5.0) L Globulin 5.1 g/dL Albumin/Globulin Ratio 0.5 (1.0-2.7) L Mellissa Garcia MD Nov 04, 2018 10:17
--- NOTE | 2018-11-04 10:27 | NUR ---
NURSE NOTES: SEEN AND EXAMINED BY DR DIAS. MADE AWARE OF THE BP AND IS OK TO GIVE NS 500 ML IV BOLUS. WILL CONTINUE TO MONITOR.
--- NOTE | 2018-11-04 11:17 | GI Progress Note ---
Assessment/Plan Problems: (1) Malfunction of jejunostomy tube ICD Codes: K94.13 - Enterostomy malfunction SNOMED: 827602504, 774642530 (2) Hypokalemia ICD Codes: E87.6 - Hypokalemia SNOMED: 15106506 Status: unchanged Status Narrative Discussed with Dr. Lehman. Assessment/Plan CT AP reviewed Thickening of the underdistended urinary bladder is concerning for cystitis. Consider correlation with urinalysis. Moderate bilateral hydroureteronephrosis. Moderate stool in the rectosigmoid colon is suggestive of constipation. Morphologic features of cirrhosis. Cholelithiasis. s/p GT 24 azeri replacement GTFs per RD GT site care BID/prn Monitor H&H, PRN transfusions turn q2 hours PPI Electrolyte correction bowel regimen follow labs The patient was seen and examined at bedside and all new and available data was reviewed in the patients chart. I agree with the above findings, impression and plan. (Patient seen earlier today. Signature stamp does not reflect patient encounter time.). - Kvng Lehman MD Subjective Subjective limited Objective Last 24 Hour Vital Signs Date Time Temp Pulse Resp B/P (MAP) Pulse Ox O2 Delivery O2 Flow Rate FiO2 11/04/18 10:00 108 23 81/49 (60) 100 11/04/18 09:00 114 26 81/52 (62) 100 11/04/18 08:00 98.9 118 26 117/84 (95) 99 11/04/18 08:00 28.0 11/04/18 07:19 99 Trach Collar 6.0 28 11/04/18 07:00 116 10 133/51 (78) 97 11/04/18 06:00 120 10 104/51 (68) 97 11/04/18 05:45 120 100/56 11/04/18 05:00 120 10 85/51 (62) 97 11/04/18 04:00 120 11/04/18 04:00 98.5 124 30 100/56 (71) 97 11/04/18 04:00 28.0 11/04/18 03:00 120 30 96/63 (74) 99 11/04/18 02:00 110 29 91/58 (69) 98 11/04/18 01:42 98 Trach Collar 6.0 28 11/04/18 00:58 117 28 92/55 (67) 99 11/04/18 00:00 28.0 11/04/18 00:00 T-piece 11/04/18 00:00 118 11/04/18 00:00 98.8 114 28 101/62 (75) 99 118 11/03/18 23:00 107 24 90/45 (60) 98 11/03/18 22:00 115 24 111/76 (88) 99 11/03/18 21:44 105 111/78 11/03/18 21:00 115 26 112/67 (82) 99 11/03/18 20:00 28.0 11/03/18 20:00 98.0 111 27 111/68 (82) 99 11/03/18 20:00 114 11/03/18 20:00 T-piece 11/03/18 19:13 100 Trach Collar 6.0 28 11/03/18 19:00 103 24 102/67 (79) 100 11/03/18 18:00 96 22 95/65 (75) 100 11/03/18 17:00 92 21 98/65 (76) 100 11/03/18 16:00 T-piece 11/03/18 16:00 96.7 96 24 119/85 (96) 99 11/03/18 16:00 88 11/03/18 15:00 94 17 94/63 (73) 100 11/03/18 14:00 88 20 132/93 (106) 100 11/03/18 13:58 83 102/68 11/03/18 13:00 83 24 102/68 (79) 100 11/03/18 13:00 102/68 11/03/18 12:55 98 Trach Collar 6.0 28 11/03/18 12:00 96.7 84 20 82/65 (71) 100 11/03/18 11:29 87 Intake and Output 11/03/18 11/04/18 19:00 07:00 Intake Total 1200 ml 1390 ml Output Total 1025 ml 1240 ml Balance 175 ml 150 ml Free Water 200 ml 400 ml IV Total 355 ml 210 ml Tube Feeding 645 ml 780 ml Output Urine Total 1025 ml 590 ml Other 650 ml # Voids 1 # Bowel Movements 3 2 Laboratory Tests Test 11/03/18 12:40 11/04/18 04:30 Urine Color Yellow Urine Appearance Clear Urine pH 6.5 (4.5-8.0) Urine Specific [place] 1.010 (1.005-1.035) Urine Protein 2+ (NEGATIVE) H Urine Glucose (UA) Negative (NEGATIVE) Urine Ketones Negative (NEGATIVE) Urine Blood 2+ (NEGATIVE) H Urine Nitrite Negative (NEGATIVE) Urine Bilirubin 1+ (NEGATIVE) H Urine Ictotest Negative (NEGATIVE) Urine Urobilinogen 12 MG/DL (0.0-1.0) H Urine Leukocyte Esterase 3+ (NEGATIVE) H Urine RBC 5-10 /HPF (0 - 0) H Urine WBC 20-30 /HPF (0 - 0) H Urine Squamous Epithelial Cells Moderate /LPF (NONE/OCC) H Urine Bacteria Few /HPF (NONE) White Blood Count 7.4 K/UL (4.8-10.8) Red Blood Count 4.50 M/UL (4.70-6.10) L Hemoglobin 12.9 G/DL (14.2-18.0) L Hematocrit 40.3 % (42.0-52.0) L Mean Corpuscular Volume 90 FL (80-99) Mean Corpuscular Hemoglobin 28.6 PG (27.0-31.0) Mean Corpuscular Hemoglobin Concent 32.0 G/DL (32.0-36.0) Red Cell Distribution Width 18.6 % (11.6-14.8) H Platelet Count 250 K/UL (150-450) Mean Platelet Volume 6.3 FL (6.5-10.1) L Neutrophils (%) (Auto) 80.2 % (45.0-75.0) H Lymphocytes (%) (Auto) 10.7 % (20.0-45.0) L Monocytes (%) (Auto) 6.5 % (1.0-10.0) Eosinophils (%) (Auto) 2.0 % (0.0-3.0) Basophils (%) (Auto) 0.6 % (0.0-2.0) Sodium Level 142 MMOL/L (136-145) Potassium Level 3.4 MMOL/L (3.5-5.1) L Chloride Level 109 MMOL/L (98-107) H Carbon Dioxide Level 27 MMOL/L (21-32) Anion Gap 6 mmol/L (5-15) Blood Urea Nitrogen 8 mg/dL (7-18) Creatinine 0.5 MG/DL (0.55-1.30) L Estimat Glomerular Filtration Rate > 60 mL/min (>60) Glucose Level 140 MG/DL (74-106) H Calcium Level 8.4 MG/DL (8.5-10.1) L Phosphorus Level 2.6 MG/DL (2.5-4.9) Magnesium Level 2.0 MG/DL (1.8-2.4) Total Bilirubin 2.7 MG/DL (0.2-1.0) H Direct Bilirubin 1.5 MG/DL (0.0-0.3) H Aspartate Amino Transf (AST/SGOT) 31 U/L (15-37) Alanine Aminotransferase (ALT/SGPT) 29 U/L (12-78) Alkaline Phosphatase 456 U/L (46-116) H Total Protein 7.4 G/DL (6.4-8.2) Albumin 2.3 G/DL (3.4-5.0) L Globulin 5.1 g/dL Albumin/Globulin Ratio 0.5 (1.0-2.7) L Microbiology Date/Time Source Procedure Growth Status 11/03/18 12:40 Urine,Clean Catch Urine Culture - Preliminary NO GROWTH Resulted Height (Feet): 5 Height (Inches): 4.00 Weight (Pounds): 203 General Appearance: WD/WN, no apparent distress, alert Cardiovascular: normal rate Respiratory/Chest: normal breath sounds, no respiratory distress Abdominal Exam: normal bowel sounds, non tender, soft, distended, GT site - c/d /i Extremities: non-tender Daisy Bernstein STAFFING CONSULTANT Nov 04, 2018 11:17
--- NOTE | 2018-11-04 12:01 | NUR ---
NURSE NOTES: MIGUE VILLARREAL CALLED AND SPOKE WITH DR ARUN ALLEN LOW BP, NEW ORDERS MADE. WILL CONTINUE TO MONITOR.
--- NOTE | 2018-11-04 12:08 | Nephrology Progress Note ---
Assessment/Plan Problem List: (1) Hypokalemia (2) Malfunction of gastrostomy tube (3) Malfunction of jejunostomy tube (4) Seizures Assessment Sever hypokalemia Low mag other conditions; 1. JG tube malfunction and leaks. 2. Respiratory failure. 3. Seizure disorder. 4. Chronic obstructive pulmonary disease. 5. Gastroesophageal reflux disease. 6. Neurogenic bladder. 7. Hypothyroidism. 8. Quadriplegia. 9. Tracheostomy in situ. 10.Thrombocytopenia. Plan BP support Vigorous K supplement IV waiting for GT functionality ! ( Per GI) Monitor lytes and renal parameters per orders Subjective ROS Limited/Unobtainable: Yes Objective Objective Last 24 Hour Vital Signs Date Time Temp Pulse Resp B/P (MAP) Pulse Ox O2 Delivery O2 Flow Rate FiO2 11/04/18 12:00 98.0 115 22 81/46 (58) 100 11/04/18 12:00 28.0 11/04/18 11:00 101 24 94/51 (65) 100 11/04/18 10:00 108 23 81/49 (60) 100 11/04/18 09:00 114 26 81/52 (62) 100 11/04/18 08:00 104 11/04/18 08:00 98.9 118 26 117/84 (95) 99 11/04/18 08:00 28.0 11/04/18 08:00 118 11/04/18 07:19 99 Trach Collar 6.0 28 11/04/18 07:00 116 10 133/51 (78) 97 11/04/18 06:00 120 10 104/51 (68) 97 11/04/18 05:45 120 100/56 11/04/18 05:00 120 10 85/51 (62) 97 11/04/18 04:00 120 11/04/18 04:00 98.5 124 30 100/56 (71) 97 11/04/18 04:00 28.0 11/04/18 03:00 120 30 96/63 (74) 99 11/04/18 02:00 110 29 91/58 (69) 98 11/04/18 01:42 98 Trach Collar 6.0 28 11/04/18 00:58 117 28 92/55 (67) 99 11/04/18 00:00 28.0 11/04/18 00:00 T-piece 11/04/18 00:00 118 11/04/18 00:00 98.8 114 28 101/62 (75) 99 118 11/03/18 23:00 107 24 90/45 (60) 98 11/03/18 22:00 115 24 111/76 (88) 99 11/03/18 21:44 105 111/78 11/03/18 21:00 115 26 112/67 (82) 99 11/03/18 20:00 28.0 11/03/18 20:00 98.0 111 27 111/68 (82) 99 11/03/18 20:00 114 11/03/18 20:00 T-piece 11/03/18 19:13 100 Trach Collar 6.0 28 11/03/18 19:00 103 24 102/67 (79) 100 11/03/18 18:00 96 22 95/65 (75) 100 11/03/18 17:00 92 21 98/65 (76) 100 11/03/18 16:00 T-piece 11/03/18 16:00 96.7 96 24 119/85 (96) 99 11/03/18 16:00 88 11/03/18 15:00 94 17 94/63 (73) 100 11/03/18 14:00 88 20 132/93 (106) 100 11/03/18 13:58 83 102/68 11/03/18 13:00 83 24 102/68 (79) 100 11/03/18 13:00 102/68 11/03/18 12:55 98 Trach Collar 6.0 28 Intake and Output 11/03/18 11/04/18 19:00 07:00 Intake Total 1200 ml 1390 ml Output Total 1025 ml 1240 ml Balance 175 ml 150 ml Free Water 200 ml 400 ml IV Total 355 ml 210 ml Tube Feeding 645 ml 780 ml Output Urine Total 1025 ml 590 ml Other 650 ml # Voids 1 # Bowel Movements 3 2 Laboratory Tests 11/03/18 12:40: Urine Color Yellow, Urine Appearance Clear, Urine pH 6.5, Urine Specific [place] 1.010, Urine Protein 2+H, Urine Glucose (UA) Negative, Urine Ketones Negative, Urine Blood 2+H, Urine Nitrite Negative, Urine Bilirubin 1+H, Urine Ictotest Negative, Urine Urobilinogen 12H, Urine Leukocyte Esterase 3+H, Urine RBC 5-10H, Urine WBC 20-30H, Urine Squamous Epithelial Cells ModerateH, Urine Bacteria Few 11/04/18 04:30: White Blood Count 7.4, Red Blood Count 4.50L, Hemoglobin 12.9L, Hematocrit 40.3L , Mean Corpuscular Volume 90, Mean Corpuscular Hemoglobin 28.6, Mean Corpuscular Hemoglobin Concent 32.0, Red Cell Distribution Width 18.6H, Platelet Count 250, Mean Platelet Volume 6.3L, Neutrophils (%) (Auto) 80.2H, Lymphocytes (%) (Auto) 10.7L, Monocytes (%) (Auto) 6.5, Eosinophils (%) (Auto) 2.0, Basophils (%) (Auto) 0.6, Sodium Level 142, Potassium Level 3.4L, Chloride Level 109H, Carbon Dioxide Level 27, Anion Gap 6, Blood Urea Nitrogen 8, Creatinine 0.5L, Estimat Glomerular Filtration Rate > 60, Glucose Level 140H, Calcium Level 8.4L, Phosphorus Level 2.6, Magnesium Level 2.0, Total Bilirubin 2.7H, Direct Bilirubin 1.5H, Aspartate Amino Transf (AST/SGOT) 31, Alanine Aminotransferase (ALT/SGPT) 29, Alkaline Phosphatase 456H, Total Protein 7.4, Albumin 2.3L, Globulin 5.1, Albumin/Globulin Ratio 0.5L Height (Feet): 5 Height (Inches): 4.00 Weight (Pounds): 203 General Appearance: no apparent distress EENT: other - trach Cardiovascular: tachycardia Respiratory/Chest: decreased breath sounds Abdomen: distended Sudhakar Silverman MD Nov 04, 2018 12:08
--- NOTE | 2018-11-04 12:32 | Infectious Diseases Prog Note ---
Assessment/Plan Assessment/Plan Assessment: Sepsis 2ry to GNR bacteremia (suspect from urinary source given hydronephrosis and chronic suprapubic catheter); worsening- now in ICU due to hypotension- off pressors now -11/03 u/a (delayed collection) wbc 20-30, nit neg, leuk +3; ucx NTD -10/30 BCx / ESBL P. mirabilis (S Ertapenem, ZOsyn); 10/31 BCx NTD -spc x MDR ABC (I Gentamicin); colonizer -11/03 CXR: Low lung volumes leading tobronchovascular crowding. Bibasilar subsegmental atelectasis. No new airspace consolidation. -CT abd/p: Thickening of the underdistended urinary bladder is concerning for cystitis. Consider correlation with urinalysis. Moderate bilateral hydroureteronephrosis. Moderate stool in the rectosigmoid colon is suggestive of constipation. Morphologic features of cirrhosis. Cholelithiasis. -CXR: Left hemidiaphragm is elevated but this appears stable. PICC line and tracheostomy noted. Cardiomegaly is stable. Bones are osteopenic. JT dislodgement and leakage w/ surrounding cellulitis -wound cx MDR ABC (I genta); colonizer Fever; SP No leukocytosis paraplegia neurogenic bladder COPD GERD seizure disorder s/p trach dysphagia s/p J tube placement 10/22/18 [place] resident Plan: -Continue Meropenem #2/10-14 for ESBL bacteremia -11/03 SP Cefepime #5 -11/02 SP IV Vancomycin #5 -10/29 SP Amikacin #1 and Flagyl #1 -f/u cx -Monitor CBC/CMP, temperatures -trach/JT care -GI f/u -aspiration precautions -f/u repeat Bcx x2, ucx Thank you for this consultation. Will continue to follow along with you. Discussed with RN. Subjective Allergies: Coded Allergies: SULFAMETHOXAZOLE (Verified Allergy, Unknown, 10/18/17) TRIMETHOPRIM (Verified Allergy, Unknown, 10/18/17) Subjective off pressors afebrile no leukocytosis repeat Bcx NTD Objective Vital Signs Last 24 Hour Vital Signs Date Time Temp Pulse Resp B/P (MAP) Pulse Ox O2 Delivery O2 Flow Rate FiO2 11/04/18 12:00 98.0 115 22 81/46 (58) 100 8/14/19 12:00 103 11/04/18 12:00 28.0 11/04/18 11:00 101 24 94/51 (65) 100 11/04/18 10:00 108 23 81/49 (60) 100 11/04/18 09:00 114 26 81/52 (62) 100 11/04/18 08:00 104 11/04/18 08:00 98.9 118 26 117/84 (95) 99 11/04/18 08:00 28.0 11/04/18 08:00 118 11/04/18 07:19 99 Trach Collar 6.0 28 11/04/18 07:00 116 10 133/51 (78) 97 11/04/18 06:00 120 10 104/51 (68) 97 11/04/18 05:45 120 100/56 11/04/18 05:00 120 10 85/51 (62) 97 11/04/18 04:00 120 11/04/18 04:00 98.5 124 30 100/56 (71) 97 11/04/18 04:00 28.0 11/04/18 03:00 120 30 96/63 (74) 99 11/04/18 02:00 110 29 91/58 (69) 98 11/04/18 01:42 98 Trach Collar 6.0 28 11/04/18 00:58 117 28 92/55 (67) 99 11/04/18 00:00 28.0 11/04/18 00:00 T-piece 11/04/18 00:00 118 11/04/18 00:00 98.8 114 28 101/62 (75) 99 118 11/03/18 23:00 107 24 90/45 (60) 98 11/03/18 22:00 115 24 111/76 (88) 99 11/03/18 21:44 105 111/78 11/03/18 21:00 115 26 112/67 (82) 99 11/03/18 20:00 28.0 11/03/18 20:00 98.0 111 27 111/68 (82) 99 11/03/18 20:00 114 11/03/18 20:00 T-piece 11/03/18 19:13 100 Trach Collar 6.0 28 11/03/18 19:00 103 24 102/67 (79) 100 11/03/18 18:00 96 22 95/65 (75) 100 11/03/18 17:00 92 21 98/65 (76) 100 11/03/18 16:00 T-piece 11/03/18 16:00 96.7 96 24 119/85 (96) 99 11/03/18 16:00 88 11/03/18 15:00 94 17 94/63 (73) 100 11/03/18 14:00 88 20 132/93 (106) 100 11/03/18 13:58 83 102/68 11/03/18 13:00 83 24 102/68 (79) 100 11/03/18 13:00 102/68 11/03/18 12:55 98 Trach Collar 6.0 28 Height (Feet): 5 Height (Inches): 4.00 Weight (Pounds): 203 Objective General Appearance: WD/WN, no apparent distress, alert Cardiovascular: normal rate Respiratory/Chest: normal breath sounds, no respiratory distress Abdominal Exam: normal bowel sounds, non tender, soft, GT site - c/d/i Extremities: non-tender Microbiology Date/Time Source Procedure Growth Status 11/03/18 12:40 Urine,Clean Catch Urine Culture - Preliminary NO GROWTH Resulted Laboratory Tests Test 11/03/18 12:40 11/04/18 04:30 Urine Color Yellow Urine Appearance Clear Urine pH 6.5 (4.5-8.0) Urine Specific [place] 1.010 (1.005-1.035) Urine Protein 2+ (NEGATIVE) H Urine Glucose (UA) Negative (NEGATIVE) Urine Ketones Negative (NEGATIVE) Urine Blood 2+ (NEGATIVE) H Urine Nitrite Negative (NEGATIVE) Urine Bilirubin 1+ (NEGATIVE) H Urine Ictotest Negative (NEGATIVE) Urine Urobilinogen 12 MG/DL (0.0-1.0) H Urine Leukocyte Esterase 3+ (NEGATIVE) H Urine RBC 5-10 /HPF (0 - 0) H Urine WBC 20-30 /HPF (0 - 0) H Urine Squamous Epithelial Cells Moderate /LPF (NONE/OCC) H Urine Bacteria Few /HPF (NONE) White Blood Count 7.4 K/UL (4.8-10.8) Red Blood Count 4.50 M/UL (4.70-6.10) L Hemoglobin 12.9 G/DL (14.2-18.0) L Hematocrit 40.3 % (42.0-52.0) L Mean Corpuscular Volume 90 FL (80-99) Mean Corpuscular Hemoglobin 28.6 PG (27.0-31.0) Mean Corpuscular Hemoglobin Concent 32.0 G/DL (32.0-36.0) Red Cell Distribution Width 18.6 % (11.6-14.8) H Platelet Count 250 K/UL (150-450) Mean Platelet Volume 6.3 FL (6.5-10.1) L Neutrophils (%) (Auto) 80.2 % (45.0-75.0) H Lymphocytes (%) (Auto) 10.7 % (20.0-45.0) L Monocytes (%) (Auto) 6.5 % (1.0-10.0) Eosinophils (%) (Auto) 2.0 % (0.0-3.0) Basophils (%) (Auto) 0.6 % (0.0-2.0) Sodium Level 142 MMOL/L (136-145) Potassium Level 3.4 MMOL/L (3.5-5.1) L Chloride Level 109 MMOL/L (98-107) H Carbon Dioxide Level 27 MMOL/L (21-32) Anion Gap 6 mmol/L (5-15) Blood Urea Nitrogen 8 mg/dL (7-18) Creatinine 0.5 MG/DL (0.55-1.30) L Estimat Glomerular Filtration Rate > 60 mL/min (>60) Glucose Level 140 MG/DL (74-106) H Calcium Level 8.4 MG/DL (8.5-10.1) L Phosphorus Level 2.6 MG/DL (2.5-4.9) Magnesium Level 2.0 MG/DL (1.8-2.4) Total Bilirubin 2.7 MG/DL (0.2-1.0) H Direct Bilirubin 1.5 MG/DL (0.0-0.3) H Aspartate Amino Transf (AST/SGOT) 31 U/L (15-37) Alanine Aminotransferase (ALT/SGPT) 29 U/L (12-78) Alkaline Phosphatase 456 U/L (46-116) H Total Protein 7.4 G/DL (6.4-8.2) Albumin 2.3 G/DL (3.4-5.0) L Globulin 5.1 g/dL Albumin/Globulin Ratio 0.5 (1.0-2.7) L Current Medications Medications (Trade) Dose Ordered Sig/Vicenta Route PRN Reason Start Time Stop Time Status Last Admin Dose Admin Acetaminophen (Tylenol) 650 mg Q4H PRN ORAL fever 11/03/18 12:30 11/27/18 12:29 Acetaminophen (Tylenol) 650 mg Q4H PRN RECTAL Mild Pain (Pain Scale 1-3) 11/03/18 14:45 11/28/18 10:44 Chlorhexidine Gluconate (Caitlyn-Hex 2%) 1 applic DAILY@2000 TOPIC 11/03/18 20:00 11/28/18 19:59 11/03/18 20:00 Dextrose (Dextrose 50%) 25 ml Q30M PRN IV Hypoglycemia 11/03/18 12:30 11/27/18 14:29 Dextrose (Dextrose 50%) 50 ml Q30M PRN IV Hypoglycemia 11/03/18 12:30 11/27/18 14:29 Docusate Sodium (Colace) 100 mg BID GT 11/03/18 18:00 12/03/18 17:59 Gabapentin (Neurontin) 600 mg Q6HR GT 11/03/18 12:00 11/27/18 17:59 11/04/18 11:54 Heparin Sodium (Porcine) (Heparin 5000 units/ml) 5,000 units EVERY 12 HOURS SUBQ 11/03/18 21:00 11/27/18 20:59 11/04/18 08:50 Levetiracetam 100 ml @ 400 mls/hr Q12HR IVPB 11/03/18 21:00 11/30/18 20:59 11/04/18 08:28 Lorazepam (Ativan 2mg/ml 1ml) 1 mg Q4H PRN IV agitation 11/03/18 12:11 11/10/18 12:10 Meropenem 1 gm/ Sodium Chloride 55 ml @ 110 mls/hr Q8HR IVPB 11/03/18 14:00 11/08/18 13:59 11/04/18 05:46 Metoclopramide HCl (Reglan) 10 mg Q6H PRN IVP severe nausea 11/03/18 12:11 12/03/18 12:10 Metoprolol Tartrate (Lopressor) 25 mg Q8HR GT 11/03/18 14:00 12/02/18 21:59 11/04/18 05:45 Midodrine (Pro-Amatine) 10 mg EVERY 8 HOURS ORAL 11/04/18 14:00 12/04/18 13:59 Mineral Oil (Fleet's Mineral Oil Enema) 133 ml EVERY OTHER DAY RECTAL 11/04/18 09:00 11/30/18 08:59 Morphine Sulfate (Morphine Sulfate) 2 mg Q4H PRN IVP severe Pain (Pain Scale 7-10) 11/03/18 12:12 11/10/18 12:11 Nitroglycerin (Ntg) 0.4 mg Q5M X 3 DOSES PRN SL Prn Chest Pain 11/03/18 12:12 12/03/18 12:11 Norepinephrine Bitartrate 4 mg/ Dextrose 250 ml @ 0 mls/hr Q24H IV 11/03/18 13:00 12/03/18 12:59 Pantoprazole (Protonix) 40 mg DAILY IV 11/04/18 09:00 11/28/18 08:59 11/04/18 08:29 Polyethylene Glycol (Miralax) 17 gm BEDTIME GT 11/03/18 21:00 12/03/18 20:59 Polyethylene Glycol (Miralax) 17 gm HSPRN PRN GT Constipation 11/03/18 12:12 12/03/18 12:11 Potassium Chloride 100 ml @ 100 mls/hr Q1HR IVPB 11/04/18 09:00 11/04/18 12:59 11/04/18 11:08 Sodium Chloride 500 ml @ 999 mls/hr Q31M ONCE IV 11/04/18 12:00 11/04/18 12:30 11/04/18 12:02 Temazepam (Restoril) 15 mg HSPRN PRN GT Insomnia 11/03/18 12:30 11/04/18 12:29 Zinc Oxide (Zinc Oxide) 1 applic TIDPRN PRN TOPIC around g tube site 11/03/18 13:00 12/03/18 12:59 Kimi Ramos M.D. Nov 04, 2018 12:32
--- NOTE | 2018-11-04 13:09 | NUR ---
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 98.9 HR 118 RR 26 B/P 81/52 TRACH COOL AEROSOL FIO2 28% K 3.4 ALK PHOS 486 IS; BOLUS NS X 1 LITER MIDODRINE KEPPRA IV MEROPENEM IV ICU STATUS
--- NOTE | 2018-11-04 13:10 | Internal Med Progress Note ---
Subjective Date of Service: Nov 04, 2018 Physician Name MaryIsidro Attending Physician Bruno Ko MD Current Medications Medications (Trade) Dose Ordered Sig/Vicenta Route PRN Reason Start Time Stop Time Status Last Admin Dose Admin Acetaminophen (Tylenol) 650 mg Q4H PRN ORAL fever 11/03/18 12:30 11/27/18 12:29 Acetaminophen (Tylenol) 650 mg Q4H PRN RECTAL Mild Pain (Pain Scale 1-3) 11/03/18 14:45 11/28/18 10:44 Chlorhexidine Gluconate (Caitlyn-Hex 2%) 1 applic DAILY@2000 TOPIC 11/03/18 20:00 11/28/18 19:59 11/03/18 20:00 Dextrose (Dextrose 50%) 25 ml Q30M PRN IV Hypoglycemia 11/03/18 12:30 11/27/18 14:29 Dextrose (Dextrose 50%) 50 ml Q30M PRN IV Hypoglycemia 11/03/18 12:30 11/27/18 14:29 Docusate Sodium (Colace) 100 mg BID GT 11/03/18 18:00 12/03/18 17:59 Gabapentin (Neurontin) 600 mg Q6HR GT 11/03/18 12:00 11/27/18 17:59 11/04/18 11:54 Heparin Sodium (Porcine) (Heparin 5000 units/ml) 5,000 units EVERY 12 HOURS SUBQ 11/03/18 21:00 11/27/18 20:59 11/04/18 08:50 Levetiracetam 100 ml @ 400 mls/hr Q12HR IVPB 11/03/18 21:00 11/30/18 20:59 11/04/18 08:28 Lorazepam (Ativan 2mg/ml 1ml) 1 mg Q4H PRN IV agitation 11/03/18 12:11 11/10/18 12:10 Meropenem 1 gm/ Sodium Chloride 55 ml @ 110 mls/hr Q8HR IVPB 11/03/18 14:00 11/08/18 13:59 11/04/18 05:46 Metoclopramide HCl (Reglan) 10 mg Q6H PRN IVP severe nausea 11/03/18 12:11 12/03/18 12:10 Metoprolol Tartrate (Lopressor) 25 mg Q8HR GT 11/03/18 14:00 12/02/18 21:59 11/04/18 05:45 Midodrine (Pro-Amatine) 10 mg EVERY 8 HOURS ORAL 11/04/18 14:00 12/04/18 13:59 Mineral Oil (Fleet's Mineral Oil Enema) 133 ml EVERY OTHER DAY RECTAL 11/04/18 09:00 11/30/18 08:59 Morphine Sulfate (Morphine Sulfate) 2 mg Q4H PRN IVP severe Pain (Pain Scale 7-10) 11/03/18 12:12 11/10/18 12:11 Nitroglycerin (Ntg) 0.4 mg Q5M X 3 DOSES PRN SL Prn Chest Pain 11/03/18 12:12 12/03/18 12:11 Norepinephrine Bitartrate 4 mg/ Dextrose 250 ml @ 0 mls/hr Q24H IV 11/03/18 13:00 12/03/18 12:59 Pantoprazole (Protonix) 40 mg DAILY IV 11/04/18 09:00 11/28/18 08:59 11/04/18 08:29 Polyethylene Glycol (Miralax) 17 gm BEDTIME GT 11/03/18 21:00 12/03/18 20:59 Polyethylene Glycol (Miralax) 17 gm HSPRN PRN GT Constipation 11/03/18 12:12 12/03/18 12:11 Zinc Oxide (Zinc Oxide) 1 applic TIDPRN PRN TOPIC around g tube site 11/03/18 13:00 12/03/18 12:59 Allergies: Coded Allergies: SULFAMETHOXAZOLE (Verified Allergy, Unknown, 10/18/17) TRIMETHOPRIM (Verified Allergy, Unknown, 10/18/17) ROS Limited/Unobtainable: Yes Subjective 57 YO M admitted with J-tube malfunction. Now sepsis. Cover for Int Med-Dr Ko. S/P endoscopy 11/02/18. ICU Objective Last Vital Signs Date Time Temp Pulse Resp B/P (MAP) Pulse Ox O2 Delivery O2 Flow Rate FiO2 11/04/18 13:00 103 24 79/50 (60) 100 11/04/18 12:56 Trach Collar 6.0 28 11/04/18 12:00 98.0 Laboratory Tests Test 11/04/18 04:30 White Blood Count 7.4 K/UL (4.8-10.8) Red Blood Count 4.50 M/UL (4.70-6.10) L Hemoglobin 12.9 G/DL (14.2-18.0) L Hematocrit 40.3 % (42.0-52.0) L Mean Corpuscular Volume 90 FL (80-99) Mean Corpuscular Hemoglobin 28.6 PG (27.0-31.0) Mean Corpuscular Hemoglobin Concent 32.0 G/DL (32.0-36.0) Red Cell Distribution Width 18.6 % (11.6-14.8) H Platelet Count 250 K/UL (150-450) Mean Platelet Volume 6.3 FL (6.5-10.1) L Neutrophils (%) (Auto) 80.2 % (45.0-75.0) H Lymphocytes (%) (Auto) 10.7 % (20.0-45.0) L Monocytes (%) (Auto) 6.5 % (1.0-10.0) Eosinophils (%) (Auto) 2.0 % (0.0-3.0) Basophils (%) (Auto) 0.6 % (0.0-2.0) Sodium Level 142 MMOL/L (136-145) Potassium Level 3.4 MMOL/L (3.5-5.1) L Chloride Level 109 MMOL/L (98-107) H Carbon Dioxide Level 27 MMOL/L (21-32) Anion Gap 6 mmol/L (5-15) Blood Urea Nitrogen 8 mg/dL (7-18) Creatinine 0.5 MG/DL (0.55-1.30) L Estimat Glomerular Filtration Rate > 60 mL/min (>60) Glucose Level 140 MG/DL (74-106) H Calcium Level 8.4 MG/DL (8.5-10.1) L Phosphorus Level 2.6 MG/DL (2.5-4.9) Magnesium Level 2.0 MG/DL (1.8-2.4) Total Bilirubin 2.7 MG/DL (0.2-1.0) H Direct Bilirubin 1.5 MG/DL (0.0-0.3) H Aspartate Amino Transf (AST/SGOT) 31 U/L (15-37) Alanine Aminotransferase (ALT/SGPT) 29 U/L (12-78) Alkaline Phosphatase 456 U/L (46-116) H Total Protein 7.4 G/DL (6.4-8.2) Albumin 2.3 G/DL (3.4-5.0) L Globulin 5.1 g/dL Albumin/Globulin Ratio 0.5 (1.0-2.7) L Microbiology Date/Time Source Procedure Growth Status 11/03/18 12:40 Urine,Clean Catch Urine Culture - Preliminary NO GROWTH Resulted Intake and Output 11/03/18 11/04/18 19:00 07:00 Intake Total 1200 ml 1390 ml Output Total 1025 ml 1240 ml Balance 175 ml 150 ml Free Water 200 ml 400 ml IV Total 355 ml 210 ml Tube Feeding 645 ml 780 ml Output Urine Total 1025 ml 590 ml Other 650 ml # Voids 1 # Bowel Movements 3 2 Objective PHYSICAL EXAMINATION: GENERAL: The patient is a well-developed and well-nourished white male, in no apparent distress. HEENT: Eyes, pupils are equal and responsive to light and accommodation. Extraocular movements are intact. NECK: Supple without lymphadenopathy. CHEST: Lungs are clear to auscultation bilaterally without wheezes or rales. CARDIOVASCULAR: Regular rhythm and rate. S1 and S2 are normal without murmurs, rubs, or gallops. ABDOMEN: Soft, nontender, and nondistended. Positive bowel sounds. No evidence of hepatosplenomegaly. Currently, no rebound or guarding noted. EXTREMITIES: Negative for clubbing, cyanosis, or edema. RECTAL/GENITAL: Not performed. NEUROLOGIC: Cranial nerves II through XII are grossly intact without focal deficits. Motor strength is 5/5 bilaterally. Deep tendon reflexes are 2+ plantar. Assessment/Plan Assessment/Plan ASSESSMENT: This is a 57-year-old male. 1. Gastrostomy tube malfunction. 2. Respiratory failure. 3. Seizure disorder. 4. Chronic obstructive pulmonary disease. 5. Gastroesophageal reflux disease. 6. Neurogenic bladder. 7. Hypothyroidism. 8. Quadriplegia. 9. Tracheostomy in situ. 10. Sepsis=ESBL Proteus mirabilis TREATMENT: 1. J-tube malfunction. A Gastroenterology consultation has been obtained with Dr. Kvng Lehman. scheduled endoscopic replacement of J-tube on October 30, 2018 postponed due to hypokalemia. Reschedule per GI 2. Respiratory failure. A Pulmonary consultation has been obtained with Dr. Mellissa Garcia. Continue DuoNebs as above. 3. Seizure disorder. Continue Keppra and Neurontin as above. 4. Chronic obstructive pulmonary disease. As above, a Pulmonary consultation has been obtained with Dr. Mellissa Garcia. 5. Gastroesophageal reflux disease. Continue famotidine as above. 6. Neurogenic bladder. The patient is status post suprapubic catheter placement. 7. Hypothyroidism. Continue Levoxyl as above. 8. Quadriplegia. 9. Tracheostomy in situ. 10. Hypokalemia. Replace K+ 11. ABX=meropenem per ID 12. S/P endoscopy with jejunostomy tube placed 11/02/18 Isidro Hernandez MD Nov 04, 2018 13:10
[2018-11-04] MEDS: Midodrine 10mg tab ORAL SCH ×2 (13:18→21:20)
--- NOTE | 2018-11-04 14:00 | NUR ---
NURSE NOTES: FLUID CHALLENGED AND STARTED WITH MIDODRINE TAB BUT STILL NOTED BP TO BE LOW. NO SIGNS OF DISTRESS. WILL CONTINUE TO MONITOR.
--- NOTE | 2018-11-04 14:47 | NUR ---
*-* INSURANCE *-* ALL CLINICALS HAVE BEEN FAXED TO: [facility] [phone] HE IS [employer] IN[employer] ASSIGNED REF#[id number] [employer]: J[employer]ON #[phone] FAX#[phone] REVIEWS/CLINICAL
--- NOTE | 2018-11-04 15:21 | NUR ---
NURSE NOTES: LEVOPHED STARTED FOLLOWING HOSPITAL PROTOCOL. WILL CONTINUE TO MONITOR.
--- NOTE | 2018-11-04 17:08 | NUR ---
NURSE NOTES: STILL ON LEVOPHED FOLLOWING HOSPITAL PROTOCOL. WILL CONTINUE TO MONITOR.
--- NOTE | 2018-11-04 18:05 | Surgery Progress Note ---
Surgery Progress Note Subjective Additional Comments decompensated now in ICU awake and responsive labs noted Objective Last 24 Hour Vital Signs Date Time Temp Pulse Resp B/P (MAP) Pulse Ox O2 Delivery O2 Flow Rate FiO2 11/04/18 17:30 71 23 92/54 (67) 99 11/04/18 17:15 68 23 94/55 (68) 100 11/04/18 17:00 99/61 11/04/18 17:00 64 22 99/57 (71) 100 11/04/18 16:45 106 24 88/53 (65) 100 11/04/18 16:30 105 25 77/46 (56) 100 11/04/18 16:15 71 23 118/71 (87) 100 11/04/18 16:00 28.0 11/04/18 16:00 83 11/04/18 16:00 109/61 11/04/18 16:00 98.1 67 22 109/61 (77) 100 11/04/18 15:30 62 23 119/68 (85) 100 11/04/18 15:15 93 23 85/53 (64) 100 11/04/18 15:01 81/49 11/04/18 15:00 92 22 88/51 (63) 100 11/04/18 14:00 92 25 115/69 (84) 100 11/04/18 13:18 102 79/50 11/04/18 13:00 103 24 79/50 (60) 100 11/04/18 12:56 100 Trach Collar 6.0 28 11/04/18 12:00 98.0 115 22 81/46 (58) 100 11/04/18 12:00 103 11/04/18 12:00 28.0 11/04/18 11:00 101 24 94/51 (65) 100 11/04/18 10:00 108 23 81/49 (60) 100 11/04/18 09:00 114 26 81/52 (62) 100 11/04/18 08:00 104 11/04/18 08:00 98.9 118 26 117/84 (95) 99 11/04/18 08:00 28.0 11/04/18 08:00 118 11/04/18 07:19 99 Trach Collar 6.0 28 11/04/18 07:00 116 10 133/51 (78) 97 11/04/18 06:00 120 10 104/51 (68) 97 11/04/18 05:45 120 100/56 11/04/18 05:00 120 10 85/51 (62) 97 11/04/18 04:00 120 11/04/18 04:00 98.5 124 30 100/56 (71) 97 11/04/18 04:00 28.0 11/04/18 03:00 120 30 96/63 (74) 99 11/04/18 02:00 110 29 91/58 (69) 98 11/04/18 01:42 98 Trach Collar 6.0 28 11/04/18 00:58 117 28 92/55 (67) 99 11/04/18 00:00 28.0 11/04/18 00:00 T-piece 11/04/18 00:00 118 11/04/18 00:00 98.8 114 28 101/62 (75) 99 118 11/03/18 23:00 107 24 90/45 (60) 98 11/03/18 22:00 115 24 111/76 (88) 99 11/03/18 21:44 105 111/78 11/03/18 21:00 115 26 112/67 (82) 99 11/03/18 20:00 28.0 11/03/18 20:00 98.0 111 27 111/68 (82) 99 11/03/18 20:00 114 11/03/18 20:00 T-piece 11/03/18 19:13 100 Trach Collar 6.0 28 11/03/18 19:00 103 24 102/67 (79) 100 I&O Intake and Output 11/03/18 11/04/18 19:00 07:00 Intake Total 1200 ml 1390 ml Output Total 1025 ml 1240 ml Balance 175 ml 150 ml Free Water 200 ml 400 ml IV Total 355 ml 210 ml Tube Feeding 645 ml 780 ml Output Urine Total 1025 ml 590 ml Other 650 ml # Voids 1 # Bowel Movements 3 2 Dressing: saturated Wound: other Drains: other Cardiovascular: RSR Respiratory: decreased breath sounds Abdomen: soft, distended, non-tender, other, decreased bowel sounds Extremities: no cyanosis, other Laboratory Tests Test 11/04/18 04:30 White Blood Count 7.4 K/UL (4.8-10.8) Red Blood Count 4.50 M/UL (4.70-6.10) L Hemoglobin 12.9 G/DL (14.2-18.0) L Hematocrit 40.3 % (42.0-52.0) L Mean Corpuscular Volume 90 FL (80-99) Mean Corpuscular Hemoglobin 28.6 PG (27.0-31.0) Mean Corpuscular Hemoglobin Concent 32.0 G/DL (32.0-36.0) Red Cell Distribution Width 18.6 % (11.6-14.8) H Platelet Count 250 K/UL (150-450) Mean Platelet Volume 6.3 FL (6.5-10.1) L Neutrophils (%) (Auto) 80.2 % (45.0-75.0) H Lymphocytes (%) (Auto) 10.7 % (20.0-45.0) L Monocytes (%) (Auto) 6.5 % (1.0-10.0) Eosinophils (%) (Auto) 2.0 % (0.0-3.0) Basophils (%) (Auto) 0.6 % (0.0-2.0) Sodium Level 142 MMOL/L (136-145) Potassium Level 3.4 MMOL/L (3.5-5.1) L Chloride Level 109 MMOL/L (98-107) H Carbon Dioxide Level 27 MMOL/L (21-32) Anion Gap 6 mmol/L (5-15) Blood Urea Nitrogen 8 mg/dL (7-18) Creatinine 0.5 MG/DL (0.55-1.30) L Estimat Glomerular Filtration Rate > 60 mL/min (>60) Glucose Level 140 MG/DL (74-106) H Calcium Level 8.4 MG/DL (8.5-10.1) L Phosphorus Level 2.6 MG/DL (2.5-4.9) Magnesium Level 2.0 MG/DL (1.8-2.4) Total Bilirubin 2.7 MG/DL (0.2-1.0) H Direct Bilirubin 1.5 MG/DL (0.0-0.3) H Aspartate Amino Transf (AST/SGOT) 31 U/L (15-37) Alanine Aminotransferase (ALT/SGPT) 29 U/L (12-78) Alkaline Phosphatase 456 U/L (46-116) H Total Protein 7.4 G/DL (6.4-8.2) Albumin 2.3 G/DL (3.4-5.0) L Globulin 5.1 g/dL Albumin/Globulin Ratio 0.5 (1.0-2.7) L Plan Problems: (1) Malfunction of gastrostomy tube Assessment & Plan: This is a 57-year-old male with malfunctioning G-tube in. G -tube cellulitis. I taken care of this patient for a long period of time and trying to help resolve this. This is actually the best it has looked and prior was significantly worse. I anticipated he would stay on TPN while the G-tube site completely closed with plans for a new G-tube placement in the future in a completely different site. Unfortunately seems that a G-tube is been placed into his prior closing site now is developing cellulitis around it again. For now given that its improved and not leaking significantly potentially cellulitis can improve and will continue with localized wound care. Apply zinc oxide around the tube and continue with tube use. Nutritional optimization is keys here. We will follow with recommendations. Thank you for allowing me to participate in patient's care Still leaking around G-tube site but erythema and skin changes much improved. Still has scaling skin with some erythema noted but significant improved as prior. G-tube in stable positioning. Dressings intact. Apply zinc oxide around G-tube site as needed with dressing changes. We will continue to monitor (2) Malfunction of jejunostomy tube (3) Abnormal LFTs Assessment & Plan: Patient with elevated t bili, d bili, alk phos remain elevated CT and US with cholelithiasis ?cbd stone will discuss with GI trend labs thank you Robert Gomez Nov 04, 2018 18:05
--- NOTE | 2018-11-04 18:11 | NUR ---
NURSE NOTES: PATIENT TURNED AND REPOSITIONED. ORAL CARE DONE. STILL ON LEVO AT 8MCG/MIN FOLLOWING HOSPITAL PROTOCOL. ON COOL AEROSOL AT 28%. NO SIGNS OF DISTRESS. WILL CONTINUE TO MONITOR.
--- NOTE | 2018-11-04 19:17 | NUR ---
RESPIRATORY NOTE: Received pt on 28% Cool Aerosol via Trach Collar. Pt is trach-dependent w/ an uncuffed, Shiley 6 XLT tube. Pt is alert/awake, follows commands. B/S sonya. diminished, sxn scant amounts of thin/thick white secretions. PMV & Ambubag at bedside. Pt in no apparent distress at this time. Will continue plan of care.
--- NOTE | 2018-11-04 19:18 | NUR ---
HAND-OFF: Report given to Olga Abebe RN.
--- NOTE | 2018-11-04 19:40 | NUR ---
NURSE NOTES: pt awake and alert on trach collar 28 o/0 no acute resp distress note no c/o pain reposition and suction
[2018-11-04] MEDS: Dyna-Hex 2% Top Sol 2oz TOPIC SCH (20:26)
[2018-11-04] MEDS: Miralax 17gm pkt GT SCH (21:00)
--- NOTE | 2018-11-04 22:00 | NUR ---
NURSE NOTES: pt asleep no distress noted levo drip at8mcg bp 104/55
[2018-11-05] VITALS (55 sets, daily range): BP systolic 77–144; BP diastolic 43–93
--- NOTE | 2018-11-05 | NUR ---
NURSE NOTES: condition un change
--- NOTE | 2018-11-05 02:00 | NUR ---
NURSE NOTES: reposition and suction tolerating feeding no residual
--- NOTE | 2018-11-05 04:00 | NUR ---
NURSE NOTES: complete bed bath oral care and back care done
[2018-11-05 04:59] LABS: BASOPHILS % (AUTO) 0.9 % (0.0-2.0); EOSINOPHILS % (AUTO) 3.2 % (0.0-3.0); HEMOGLOBIN 12.9 G/DL (14.2-18.0); LYMPHOCYTES % (AUTO) 21.6 % (20.0-45.0); MEAN CORPUSCULAR VOLUME 90 FL (80-99); MONOCYTES % (AUTO) 8.6 % (1.0-10.0); NEUTROPHILS % (AUTO) 65.7 % (45.0-75.0); PLATELET COUNT 308 K/UL (150-450); RED BLOOD COUNT 4.43 M/UL (4.70-6.10); RED CELL DISTRIBUTION WIDTH 18.4 % (11.6-14.8); WHITE BLOOD COUNT 6.7 K/UL (4.8-10.8)
[2018-11-05 05:49] LABS: ALANINE AMINOTRANSFERASE 35 U/L (12-78); ALBUMIN 2.1 G/DL (3.4-5.0); ALBUMIN/GLOBULIN RATIO 0.5 (1.0-2.7); ALKALINE PHOSPHATASE 472 U/L (46-116); ANION GAP 7 mmol/L (5-15); ASPARTATE AMINO TRANSFERASE 39 U/L (15-37); BILIRUBIN,TOTAL 1.7 MG/DL (0.2-1.0); BLOOD UREA NITROGEN 6 mg/dL (7-18); CARBON DIOXIDE 28 MMOL/L (21-32); CHLORIDE 105 MMOL/L (98-107); CREATININE 0.4 MG/DL (0.55-1.30); POTASSIUM 3.5 MMOL/L (3.5-5.1); SODIUM 139 MMOL/L (136-145)
--- NOTE | 2018-11-05 06:00 | NUR ---
HAND-OFF: Report given to Bakari JOSEPH . Addendum: 11/05/18 at 0724 by ADDI FLORES RN wrong time
[2018-11-05] MEDS: Gabapentin 300 MG/6 ML Soln GT SCH ×3 (06:03→18:07)
[2018-11-05] MEDS: Metoprolol 25mg tab GT SCH ×3 (06:03→21:06)
[2018-11-05] MEDS: Meropenem 1 GM in NS 55 ML IVPB SCH ×3 (06:04→21:06)
[2018-11-05] MEDS: Midodrine 10mg tab ORAL SCH ×3 (06:04→21:06)
--- NOTE | 2018-11-05 07:10 | NUR ---
HAND-OFF: Report given to Bakari JOSEPH .
--- NOTE | 2018-11-05 07:11 | NUR ---
NURSE NOTES: RECEIVED PATIENT FROM Olga WANG RN. PATIENT IS LYING IN BED ASLEEP, ABLE TO OPEN EYES AND RESPONSIVE. HOOKED TO RESOURCE COORDINATOR. HR OF 106. SATING AT 100%. NO SIGNS OF DISTRESS OF THE MOMENT. ON TRACH COLLAR AT 28%. GT NOTED. ON JEVITY AT 65ML/HR. CONDOM CATH NOTED AND SUPRAPUBIC CATH ON CONNECTED TO BAG, PATENT AND DRAINING URINE. PERIANAL REDNESS DUE TO INCONTINENCE. ON OVERLAY MATTRESS. CALL LIGHT WITHIN REACH. SIDE RAILS UP AND PADDED. BED AT LOWEST POSITION. WILL CONTINUE TO MONITOR.
--- NOTE | 2018-11-05 08:00 | NUR ---
NURSE NOTES: SEEN AND EXAMINED BY DR BUTLER. NNO. WILL CONTINUE TO MONITOR.
--- NOTE | 2018-11-05 08:08 | Urology Progress Note ---
Assessment/Plan Status: unchanged Assessment/Plan: 1. Urinary retention with chronic suprapubic tube. 2. Neurogenic bladder. 3. Hydronephrosis, which appears to be chronic. 4. Nephrolithiasis. 5. Cystitis. 6. Hematuria. 7. Probable colonized urine. 8. Sepsis. monitor clinically keep SP tube, last exchanged 10/24 hand irrigated and do PRN position satisfactory, intermittent leakage from penis abx as ordered f/u on final blood cx consider nuclear renal scan Subjective Allergies: Coded Allergies: SULFAMETHOXAZOLE (Verified Allergy, Unknown, 10/18/17) TRIMETHOPRIM (Verified Allergy, Unknown, 10/18/17) Subjective some more SP tube output, less penile output per nurse Objective Last 24 Hour Vital Signs Date Time Temp Pulse Resp B/P (MAP) Pulse Ox O2 Delivery O2 Flow Rate FiO2 11/05/18 08:00 28.0 11/05/18 08:00 98.9 101 24 91/56 (68) 100 11/05/18 07:45 101 22 91/56 (68) 100 11/05/18 07:32 99 Trach Collar 6.0 28 11/05/18 07:30 107 26 91/55 (67) 99 11/05/18 07:15 110 26 96/58 (71) 100 11/05/18 07:00 116 22 114/66 (82) 100 11/05/18 07:00 114/66 11/05/18 06:03 119 112/68 11/05/18 06:00 116 22 114/66 (82) 100 11/05/18 06:00 114/66 11/05/18 05:30 117 23 112/68 (83) 99 11/05/18 05:00 117 22 117/73 (88) 100 11/05/18 05:00 117/73 11/05/18 04:36 T-piece 11/05/18 04:30 105 24 98/67 (77) 99 11/05/18 04:00 98 11/05/18 04:00 28.0 11/05/18 04:00 102/76 11/05/18 04:00 98.6 99 23 102/76 (85) 99 11/05/18 03:30 111 26 100/72 (81) 99 11/05/18 03:00 92 23 99/69 (79) 99 11/05/18 03:00 109/75 11/05/18 02:30 106 23 109/76 (87) 100 11/05/18 02:07 91 23 88/43 (58) 98 11/05/18 02:00 91 25 84/53 (63) 98 11/05/18 02:00 79/57 11/05/18 01:30 111 24 90/55 (67) 99 11/05/18 01:02 99 Trach Collar 6.0 28 11/05/18 01:00 125 26 115/66 (82) 99 11/05/18 01:00 115/66 11/05/18 00:30 100 24 100/60 (73) 99 11/05/18 00:00 98.5 92 25 101/60 (74) 100 11/05/18 00:00 28.0 11/05/18 00:00 86 11/05/18 00:00 100/60 11/05/18 00:00 T-piece 11/04/18 23:30 84 24 99/51 (67) 100 11/04/18 23:25 98/51 11/04/18 23:00 78 23 98/51 (67) 100 11/04/18 23:00 94/50 11/04/18 22:30 74 24 104/54 (71) 100 11/04/18 22:00 65 22 108/56 (73) 100 11/04/18 22:00 104/54 11/04/18 21:30 75 24 98/47 (64) 100 11/04/18 21:19 69 93/51 11/04/18 21:00 80 24 93/51 (65) 100 11/04/18 21:00 94/45 11/04/18 20:30 86 21 97/56 (70) 100 11/04/18 20:00 T-piece 11/04/18 20:00 84 11/04/18 20:00 93/46 11/04/18 20:00 98.5 80 23 98/56 (70) 100 11/04/18 20:00 28.0 11/04/18 19:30 84 24 93/49 (64) 100 11/04/18 19:15 100 Trach Collar 6.0 28 11/04/18 19:00 89 26 91/49 (63) 100 11/04/18 19:00 91/49 8/14/19 18:30 95 16 113/60 (77) 100 11/04/18 18:00 81 21 105/52 (69) 100 11/04/18 18:00 105/52 11/04/18 17:45 78 25 /54 99 11/04/18 17:30 71 23 92/54 (67) 99 11/04/18 17:15 68 23 94/55 (68) 100 11/04/18 17:00 99/61 11/04/18 17:00 64 22 99/57 (71) 100 11/04/18 16:45 106 24 88/53 (65) 100 11/04/18 16:30 105 25 77/46 (56) 100 11/04/18 16:15 71 23 118/71 (87) 100 11/04/18 16:00 28.0 11/04/18 16:00 83 11/04/18 16:00 109/61 11/04/18 16:00 98.1 67 22 109/61 (77) 100 11/04/18 15:30 62 23 119/68 (85) 100 11/04/18 15:15 93 23 85/53 (64) 100 11/04/18 15:01 81/49 11/04/18 15:00 92 22 88/51 (63) 100 11/04/18 14:00 92 25 115/69 (84) 100 11/04/18 13:18 102 79/50 11/04/18 13:00 103 24 79/50 (60) 100 11/04/18 12:56 100 Trach Collar 6.0 28 11/04/18 12:00 98.0 115 22 81/46 (58) 100 11/04/18 12:00 103 11/04/18 12:00 28.0 11/04/18 11:00 101 24 94/51 (65) 100 11/04/18 10:00 108 23 81/49 (60) 100 11/04/18 09:00 114 26 81/52 (62) 100 Intake and Output 11/04/18 11/05/18 19:00 07:00 Intake Total 2982.5 ml 1690 ml Output Total 1490 ml 2600 ml Balance 1492.5 ml -910 ml Free Water 200 ml 300 ml IV Total 1937.5 ml 610 ml Tube Feeding 845 ml 780 ml Output Urine Total 860 ml 2050 ml Other 630 ml 550 ml # Bowel Movements 3 Microbiology Date/Time Source Procedure Growth Status 10/31/18 13:30 Blood Blood Culture - Preliminary NO GROWTH AFTER 72 HOURS Resulted 10/31/18 21:30 Sputum Gram Stain - Final Complete 10/31/18 21:30 Sputum Culture - Final A.baumanii Complx - Mdr Usual Respiratory Nataly Complete 11/03/18 12:40 Urine,Clean Catch Urine Culture - Final Yeast Species Complete 11/01/18 03:00 Abdomen Gram Stain - Final Complete 11/01/18 03:00 Wound Culture - Final A.[email or web address] Complx - Mdr Wanda Albicans Usual Skin Nataly Complete Current Medications Medications (Trade) Dose Ordered Sig/Vicenta Route PRN Reason Start Time Stop Time Status Last Admin Dose Admin Acetaminophen (Tylenol) 650 mg Q4H PRN ORAL fever 11/03/18 12:30 11/27/18 12:29 Acetaminophen (Tylenol) 650 mg Q4H PRN RECTAL Mild Pain (Pain Scale 1-3) 11/03/18 14:45 11/28/18 10:44 Chlorhexidine Gluconate (Caitlyn-Hex 2%) 1 applic DAILY@2000 TOPIC 11/03/18 20:00 11/28/18 19:59 11/04/18 20:26 Dextrose (Dextrose 50%) 25 ml Q30M PRN IV Hypoglycemia 11/03/18 12:30 11/27/18 14:29 Dextrose (Dextrose 50%) 50 ml Q30M PRN IV Hypoglycemia 11/03/18 12:30 11/27/18 14:29 Docusate Sodium (Colace) 100 mg BID GT 11/03/18 18:00 12/03/18 17:59 Gabapentin (Neurontin) 600 mg Q6HR GT 11/03/18 12:00 11/27/18 17:59 11/05/18 06:03 Heparin Sodium (Porcine) (Heparin 5000 units/ml) 5,000 units EVERY 12 HOURS SUBQ 11/03/18 21:00 11/27/18 20:59 11/04/18 21:18 Levetiracetam 100 ml @ 400 mls/hr Q12HR IVPB 11/03/18 21:00 11/30/18 20:59 11/04/18 20:27 Lorazepam (Ativan 2mg/ml 1ml) 1 mg Q4H PRN IV agitation 11/03/18 12:11 11/10/18 12:10 Magnesium Sulfate 100 ml @ 100 mls/hr Q1H IVPB 11/05/18 08:15 11/05/18 12:14 Meropenem 1 gm/ Sodium Chloride 55 ml @ 110 mls/hr Q8HR IVPB 11/03/18 14:00 11/08/18 13:59 11/05/18 06:04 Metoclopramide HCl (Reglan) 10 mg Q6H PRN IVP severe nausea 11/03/18 12:11 12/03/18 12:10 Metoprolol Tartrate (Lopressor) 25 mg Q8HR GT 11/03/18 14:00 12/02/18 21:59 11/05/18 06:03 Midodrine (Pro-Amatine) 10 mg EVERY 8 HOURS ORAL 11/04/18 14:00 12/04/18 13:59 11/05/18 06:04 Mineral Oil (Fleet's Mineral Oil Enema) 133 ml EVERY OTHER DAY RECTAL 11/04/18 09:00 11/30/18 08:59 Morphine Sulfate (Morphine Sulfate) 2 mg Q4H PRN IVP severe Pain (Pain Scale 7-10) 11/03/18 12:12 11/10/18 12:11 Nitroglycerin (Ntg) 0.4 mg Q5M X 3 DOSES PRN SL Prn Chest Pain 11/03/18 12:12 12/03/18 12:11 Norepinephrine Bitartrate 4 mg/ Dextrose 250 ml @ 0 mls/hr Q24H IV 11/03/18 13:00 12/03/18 12:59 11/04/18 23:25 Pantoprazole (Protonix) 40 mg DAILY IV 11/04/18 09:00 11/28/18 08:59 11/04/18 08:29 Polyethylene Glycol (Miralax) 17 gm BEDTIME GT 11/03/18 21:00 12/03/18 20:59 Polyethylene Glycol (Miralax) 17 gm HSPRN PRN GT Constipation 11/03/18 12:12 12/03/18 12:11 Potassium Phosphate 30 mm/ Sodium Chloride 285 ml @ 47.5 mls/hr ONCE IV 11/05/18 09:00 11/05/18 15:00 Zinc Oxide (Zinc Oxide) 1 applic TIDPRN PRN TOPIC around g tube site 11/03/18 13:00 12/03/18 12:59 Laboratory Tests 11/05/18 04:20: White Blood Count 6.7, Red Blood Count 4.43L, Hemoglobin 12.9L, Hematocrit 40.0L , Mean Corpuscular Volume 90, Mean Corpuscular Hemoglobin 29.1, Mean Corpuscular Hemoglobin Concent 32.2, Red Cell Distribution Width 18.4H, Platelet Count 308, Mean Platelet Volume 5.9L, Neutrophils (%) (Auto) 65.7, Lymphocytes (%) (Auto) 21.6, Monocytes (%) (Auto) 8.6, Eosinophils (%) (Auto) 3.2H, Basophils (%) (Auto) 0.9, Sodium Level 139, Potassium Level 3.5, Chloride Level 105, Carbon Dioxide Level 28, Anion Gap 7, Blood Urea Nitrogen 6L, Creatinine 0.4L, Estimat Glomerular Filtration Rate > 60, Glucose Level 156H, Uric Acid 2.0L, Calcium Level 8.0L, Phosphorus Level 2.0L, Magnesium Level 1.6L , Total Bilirubin 1.7H, Direct Bilirubin 1.0H, Aspartate Amino Transf (AST/SGOT ) 39H, Alanine Aminotransferase (ALT/SGPT) 35, Alkaline Phosphatase 472H, C- Reactive Protein, Quantitative 7.8H, Pro-B-Type Natriuretic Peptide 876H, Total Protein 6.3L, Albumin 2.1L, Globulin 4.2, Albumin/Globulin Ratio 0.5L, Cortisol AM Sample [Pending] Height (Feet): 5 Height (Inches): 4.00 Weight (Pounds): 220 Objective exam stable SP tube in place, urine remains blood-tinged Ascencion Palomino MD Nov 05, 2018 08:08
[2018-11-05] MEDS: Docusate 100mg tablet GT SCH ×2 (08:45→17:00)
[2018-11-05] MEDS: Pantoprazole Inj IV SCH (08:45)
[2018-11-05] MEDS: Heparin 5000 units/ml inj SUBQ SCH ×2 (08:46→21:08)
[2018-11-05] MEDS: levETIRAcetam 500mg/NS100ml 100 ML IVPB SCH ×2 (08:47→21:06)
[2018-11-05] MEDS ORDERED: Potassium Phosphate 30 MM in NS 275 ML IV SCH (09:00)
--- NOTE | 2018-11-05 10:00 | NUR ---
NURSE NOTES: SEEN AND EXAMINED BY DR DIAS WITH NEW ORDERS MADE. SEEN BY PETAR SILVA. NOTED LARGE LOOSE BOWEL MOVEMENT. PATIENT KEPT CLEAN AND DRY. NO SIGNS OF DISTRESS OF THE MOMENT. STILL ON LEVO AT 6 MCG/MIN FOLLOWING HOSPITAL PROTOCOL=. WILL CONTINUE TO MONITOR.
--- NOTE | 2018-11-05 10:03 | GI Progress Note ---
Assessment/Plan Problems: (1) Malfunction of jejunostomy tube ICD Codes: K94.13 - Enterostomy malfunction SNOMED: 572734631, [id number] (2) Hypokalemia ICD Codes: E87.6 - Hypokalemia SNOMED: 78655315 Status: unchanged Status Narrative Discussed with Dr. Lehman. Assessment/Plan CT AP reviewed Thickening of the underdistended urinary bladder is concerning for cystitis. Consider correlation with urinalysis. Moderate bilateral hydroureteronephrosis. Moderate stool in the rectosigmoid colon is suggestive of constipation. Morphologic features of cirrhosis. Cholelithiasis. s/p GT 24 sinhala replaced GTFs per RD GT site care BID/prn Monitor H&H, PRN transfusions turn q2 hours PPI Electrolyte correction bowel regimen follow labs The patient was seen and examined at bedside and all new and available data was reviewed in the patients chart. I agree with the above findings, impression and plan. (Patient seen earlier today. Signature stamp does not reflect patient encounter time.). - Kvng Lehman MD Subjective Gastrointestinal/Abdominal: Reports: no symptoms Subjective limited Objective Last 24 Hour Vital Signs Date Time Temp Pulse Resp B/P (MAP) Pulse Ox O2 Delivery O2 Flow Rate FiO2 11/05/18 09:30 112 23 103/64 (77) 100 11/05/18 09:15 100 23 103/64 (77) 100 11/05/18 09:00 102 24 106/61 (76) 100 11/05/18 08:55 103/68 11/05/18 08:45 102 26 113/70 (84) 100 11/05/18 08:30 102 23 83/53 (63) 100 11/05/18 08:15 103 24 87/56 (66) 100 11/05/18 08:00 Trach Collar 6.0 11/05/18 08:00 108 11/05/18 08:00 91/56 11/05/18 08:00 6.0 28 11/05/18 08:00 98.9 101 24 91/56 (68) 100 11/05/18 07:45 101 22 91/56 (68) 100 11/05/18 07:32 99 Trach Collar 6.0 28 11/05/18 07:30 107 26 91/55 (67) 99 11/05/18 07:15 110 26 96/58 (71) 100 11/05/18 07:00 116 22 114/66 (82) 100 11/05/18 07:00 114/66 11/05/18 06:03 119 112/68 11/05/18 06:00 116 22 114/66 (82) 100 11/05/18 06:00 114/66 11/05/18 05:30 117 23 112/68 (83) 99 11/05/18 05:00 117 22 117/73 (88) 100 11/05/18 05:00 117/73 11/05/18 04:36 T-piece 11/05/18 04:30 105 24 98/67 (77) 99 11/05/18 04:00 98 11/05/18 04:00 28.0 11/05/18 04:00 102/76 11/05/18 04:00 98.6 99 23 102/76 (85) 99 11/05/18 03:30 111 26 100/72 (81) 99 11/05/18 03:00 92 23 99/69 (79) 99 11/05/18 03:00 109/75 11/05/18 02:30 106 23 109/76 (87) 100 11/05/18 02:07 91 23 88/43 (58) 98 11/05/18 02:00 91 25 84/53 (63) 98 11/05/18 02:00 79/57 11/05/18 01:30 111 24 90/55 (67) 99 11/05/18 01:02 99 Trach Collar 6.0 28 11/05/18 01:00 125 26 115/66 (82) 99 11/05/18 01:00 115/66 11/05/18 00:30 100 24 100/60 (73) 99 11/05/18 00:00 98.5 92 25 101/60 (74) 100 11/05/18 00:00 28.0 11/05/18 00:00 86 11/05/18 00:00 100/60 11/05/18 00:00 T-piece 11/04/18 23:30 84 24 99/51 (67) 100 11/04/18 23:25 98/51 11/04/18 23:00 78 23 98/51 (67) 100 11/04/18 23:00 94/50 11/04/18 22:30 74 24 104/54 (71) 100 11/04/18 22:00 65 22 108/56 (73) 100 11/04/18 22:00 104/54 11/04/18 21:30 75 24 98/47 (64) 100 11/04/18 21:19 69 93/51 11/04/18 21:00 80 24 93/51 (65) 100 11/04/18 21:00 94/45 11/04/18 20:30 86 21 97/56 (70) 100 11/04/18 20:00 T-piece 11/04/18 20:00 84 11/04/18 20:00 93/46 11/04/18 20:00 98.5 80 23 98/56 (70) 100 11/04/18 20:00 28.0 11/04/18 19:30 84 24 93/49 (64) 100 11/04/18 19:15 100 Trach Collar 6.0 28 11/04/18 19:00 89 26 91/49 (63) 100 11/04/18 19:00 91/49 11/04/18 18:30 95 16 113/60 (77) 100 11/04/18 18:00 81 21 105/52 (69) 100 11/04/18 18:00 105/52 11/04/18 17:45 78 25 /54 99 11/04/18 17:30 71 23 92/54 (67) 99 11/04/18 17:15 68 23 94/55 (68) 100 11/04/18 17:00 99/61 11/04/18 17:00 64 22 99/57 (71) 100 11/04/18 16:45 106 24 88/53 (65) 100 11/04/18 16:30 105 25 77/46 (56) 100 11/04/18 16:15 71 23 118/71 (87) 100 11/04/18 16:00 6.0 28 11/04/18 16:00 83 11/04/18 16:00 Trach Collar 6.0 11/04/18 16:00 109/61 11/04/18 16:00 98.1 67 22 109/61 (77) 100 11/04/18 15:30 62 23 119/68 (85) 100 11/04/18 15:15 93 23 85/53 (64) 100 11/04/18 15:01 81/49 11/04/18 15:00 92 22 88/51 (63) 100 11/04/18 14:00 92 25 115/69 (84) 100 11/04/18 13:18 102 79/50 11/04/18 13:00 103 24 79/50 (60) 100 11/04/18 12:56 100 Trach Collar 6.0 28 11/04/18 12:00 98.0 115 22 81/46 (58) 100 11/04/18 12:00 103 11/04/18 12:00 Trach Collar 6.0 11/04/18 12:00 6.0 28 11/04/18 11:00 101 24 94/51 (65) 100 Intake and Output 11/04/18 11/05/18 19:00 07:00 Intake Total 2982.5 ml 1690 ml Output Total 1490 ml 2600 ml Balance 1492.5 ml -910 ml Free Water 200 ml 300 ml IV Total 1937.5 ml 610 ml Tube Feeding 845 ml 780 ml Output Urine Total 860 ml 2050 ml Other 630 ml 550 ml # Bowel Movements 7 Laboratory Tests Test 11/05/18 04:20 White Blood Count 6.7 K/UL (4.8-10.8) Red Blood Count 4.43 M/UL (4.70-6.10) L Hemoglobin 12.9 G/DL (14.2-18.0) L Hematocrit 40.0 % (42.0-52.0) L Mean Corpuscular Volume 90 FL (80-99) Mean Corpuscular Hemoglobin 29.1 PG (27.0-31.0) Mean Corpuscular Hemoglobin Concent 32.2 G/DL (32.0-36.0) Red Cell Distribution Width 18.4 % (11.6-14.8) H Platelet Count 308 K/UL (150-450) Mean Platelet Volume 5.9 FL (6.5-10.1) L Neutrophils (%) (Auto) 65.7 % (45.0-75.0) Lymphocytes (%) (Auto) 21.6 % (20.0-45.0) Monocytes (%) (Auto) 8.6 % (1.0-10.0) Eosinophils (%) (Auto) 3.2 % (0.0-3.0) H Basophils (%) (Auto) 0.9 % (0.0-2.0) Sodium Level 139 MMOL/L (136-145) Potassium Level 3.5 MMOL/L (3.5-5.1) Chloride Level 105 MMOL/L (98-107) Carbon Dioxide Level 28 MMOL/L (21-32) Anion Gap 7 mmol/L (5-15) Blood Urea Nitrogen 6 mg/dL (7-18) L Creatinine 0.4 MG/DL (0.55-1.30) L Estimat Glomerular Filtration Rate > 60 mL/min (>60) Glucose Level 156 MG/DL (74-106) H Uric Acid 2.0 MG/DL (2.6-7.2) L Calcium Level 8.0 MG/DL (8.5-10.1) L Phosphorus Level 2.0 MG/DL (2.5-4.9) L Magnesium Level 1.6 MG/DL (1.8-2.4) L Total Bilirubin 1.7 MG/DL (0.2-1.0) H Direct Bilirubin 1.0 MG/DL (0.0-0.3) H Aspartate Amino Transf (AST/SGOT) 39 U/L (15-37) H Alanine Aminotransferase (ALT/SGPT) 35 U/L (12-78) Alkaline Phosphatase 472 U/L (46-116) H C-Reactive Protein, Quantitative 7.8 mg/dL (0.00-0.90) H Pro-B-Type Natriuretic Peptide 876 pg/mL (0-125) H Total Protein 6.3 G/DL (6.4-8.2) L Albumin 2.1 G/DL (3.4-5.0) L Globulin 4.2 g/dL Albumin/Globulin Ratio 0.5 (1.0-2.7) L Cortisol AM Sample Pending Height (Feet): 5 Height (Inches): 4.00 Weight (Pounds): 220 General Appearance: WD/WN, no apparent distress, alert Cardiovascular: normal rate Respiratory/Chest: normal breath sounds, no respiratory distress Abdominal Exam: normal bowel sounds, non tender, soft, distended, GT site Extremities: non-tender Daisy Bernstein [employer] Nov 05, 2018 10:03
--- NOTE | 2018-11-05 10:09 | Pulmonolgy Critical Care Note ---
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 Respiratory: monitor respiratory rate, adjust FIO2, CXR Cardiac: continue pressors Renal: F/U I&O, keep IV fluid Infectious Disease: continue antibiotics Gastrointestinal: hold feedings Endocrine: monitor blood sugar, check HgA1C Neurologic: PRN Ativan, PRN Morphine Critical Care - Objective Last 24 Hour Vital Signs Date Time Temp Pulse Resp B/P (MAP) Pulse Ox O2 Delivery O2 Flow Rate FiO2 11/05/18 09:30 112 23 103/64 (77) 100 11/05/18 09:15 100 23 103/64 (77) 100 11/05/18 09:00 102 24 106/61 (76) 100 11/05/18 08:55 103/68 11/05/18 08:45 102 26 113/70 (84) 100 11/05/18 08:30 102 23 83/53 (63) 100 11/05/18 08:15 103 24 87/56 (66) 100 11/05/18 08:00 Trach Collar 6.0 11/05/18 08:00 108 11/05/18 08:00 91/56 11/05/18 08:00 6.0 28 11/05/18 08:00 98.9 101 24 91/56 (68) 100 11/05/18 07:45 101 22 91/56 (68) 100 11/05/18 07:32 99 Trach Collar 6.0 28 11/05/18 07:30 107 26 91/55 (67) 99 11/05/18 07:15 110 26 96/58 (71) 100 11/05/18 07:00 116 22 114/66 (82) 100 11/05/18 07:00 114/66 11/05/18 06:03 119 112/68 11/05/18 06:00 116 22 114/66 (82) 100 11/05/18 06:00 114/66 11/05/18 05:30 117 23 112/68 (83) 99 11/05/18 05:00 117 22 117/73 (88) 100 11/05/18 05:00 117/73 11/05/18 04:36 T-piece 11/05/18 04:30 105 24 98/67 (77) 99 11/05/18 04:00 98 11/05/18 04:00 28.0 11/05/18 04:00 102/76 11/05/18 04:00 98.6 99 23 102/76 (85) 99 11/05/18 03:30 111 26 100/72 (81) 99 11/05/18 03:00 92 23 99/69 (79) 99 11/05/18 03:00 109/75 11/05/18 02:30 106 23 109/76 (87) 100 11/05/18 02:07 91 23 88/43 (58) 98 11/05/18 02:00 91 25 84/53 (63) 98 11/05/18 02:00 79/57 11/05/18 01:30 111 24 90/55 (67) 99 11/05/18 01:02 99 Trach Collar 6.0 28 11/05/18 01:00 125 26 115/66 (82) 99 11/05/18 01:00 115/66 11/05/18 00:30 100 24 100/60 (73) 99 11/05/18 00:00 98.5 92 25 101/60 (74) 100 11/05/18 00:00 28.0 11/05/18 00:00 86 11/05/18 00:00 100/60 11/05/18 00:00 T-piece 11/04/18 23:30 84 24 99/51 (67) 100 11/04/18 23:25 98/51 11/04/18 23:00 78 23 98/51 (67) 100 11/04/18 23:00 94/50 11/04/18 22:30 74 24 104/54 (71) 100 11/04/18 22:00 65 22 108/56 (73) 100 11/04/18 22:00 104/54 11/04/18 21:30 75 24 98/47 (64) 100 11/04/18 21:19 69 93/51 11/04/18 21:00 80 24 93/51 (65) 100 11/04/18 21:00 94/45 11/04/18 20:30 86 21 97/56 (70) 100 11/04/18 20:00 T-piece 11/04/18 20:00 84 11/04/18 20:00 93/46 11/04/18 20:00 98.5 80 23 98/56 (70) 100 11/04/18 20:00 28.0 11/04/18 19:30 84 24 93/49 (64) 100 11/04/18 19:15 100 Trach Collar 6.0 28 11/04/18 19:00 89 26 91/49 (63) 100 11/04/18 19:00 91/49 11/04/18 18:30 95 16 113/60 (77) 100 11/04/18 18:00 81 21 105/52 (69) 100 11/04/18 18:00 105/52 11/04/18 17:45 78 25 /54 99 11/04/18 17:30 71 23 92/54 (67) 99 11/04/18 17:15 68 23 94/55 (68) 100 11/04/18 17:00 99/61 11/04/18 17:00 64 22 99/57 (71) 100 11/04/18 16:45 106 24 88/53 (65) 100 11/04/18 16:30 105 25 77/46 (56) 100 11/04/18 16:15 71 23 118/71 (87) 100 11/04/18 16:00 6.0 28 11/04/18 16:00 83 11/04/18 16:00 Trach Collar 6.0 11/04/18 16:00 109/61 11/04/18 16:00 98.1 67 22 109/61 (77) 100 11/04/18 15:30 62 23 119/68 (85) 100 11/04/18 15:15 93 23 85/53 (64) 100 11/04/18 15:01 81/49 11/04/18 15:00 92 22 88/51 (63) 100 11/04/18 14:00 92 25 115/69 (84) 100 11/04/18 13:18 102 79/50 11/04/18 13:00 103 24 79/50 (60) 100 11/04/18 12:56 100 Trach Collar 6.0 28 11/04/18 12:00 98.0 115 22 81/46 (58) 100 11/04/18 12:00 103 11/04/18 12:00 Trach Collar 6.0 11/04/18 12:00 6.0 28 11/04/18 11:00 101 24 94/51 (65) 100 Status: awake, sedated Condition: grave Neck: full ROM Heart: HR/BP stable Abdomen: soft, feeding tube Extremities: edema Micro: Microbiology Date/Time Source Procedure Growth Status 11/03/18 12:40 Urine,Clean Catch Urine Culture - Final Yeast Species Complete Critical Care - Subjective ROS Limited/Unobtainable: Yes Condition: critical FI02: 28 Sputum Amount: Moderate Fluids: KVO Drips: levophed Tube Feeding Amount: 65 I&O: Intake and Output 11/04/18 11/05/18 19:00 07:00 Intake Total 2982.5 ml 1690 ml Output Total 1490 ml 2600 ml Balance 1492.5 ml -910 ml Free Water 200 ml 300 ml IV Total 1937.5 ml 610 ml Tube Feeding 845 ml 780 ml Output Urine Total 860 ml 2050 ml Other 630 ml 550 ml # Bowel Movements 7 Labs: Laboratory Tests Test 11/05/18 04:20 White Blood Count 6.7 K/UL (4.8-10.8) Red Blood Count 4.43 M/UL (4.70-6.10) L Hemoglobin 12.9 G/DL (14.2-18.0) L Hematocrit 40.0 % (42.0-52.0) L Mean Corpuscular Volume 90 FL (80-99) Mean Corpuscular Hemoglobin 29.1 PG (27.0-31.0) Mean Corpuscular Hemoglobin Concent 32.2 G/DL (32.0-36.0) Red Cell Distribution Width 18.4 % (11.6-14.8) H Platelet Count 308 K/UL (150-450) Mean Platelet Volume 5.9 FL (6.5-10.1) L Neutrophils (%) (Auto) 65.7 % (45.0-75.0) Lymphocytes (%) (Auto) 21.6 % (20.0-45.0) Monocytes (%) (Auto) 8.6 % (1.0-10.0) Eosinophils (%) (Auto) 3.2 % (0.0-3.0) H Basophils (%) (Auto) 0.9 % (0.0-2.0) Sodium Level 139 MMOL/L (136-145) Potassium Level 3.5 MMOL/L (3.5-5.1) Chloride Level 105 MMOL/L (98-107) Carbon Dioxide Level 28 MMOL/L (21-32) Anion Gap 7 mmol/L (5-15) Blood Urea Nitrogen 6 mg/dL (7-18) L Creatinine 0.4 MG/DL (0.55-1.30) L Estimat Glomerular Filtration Rate > 60 mL/min (>60) Glucose Level 156 MG/DL (74-106) H Uric Acid 2.0 MG/DL (2.6-7.2) L Calcium Level 8.0 MG/DL (8.5-10.1) L Phosphorus Level 2.0 MG/DL (2.5-4.9) L Magnesium Level 1.6 MG/DL (1.8-2.4) L Total Bilirubin 1.7 MG/DL (0.2-1.0) H Direct Bilirubin 1.0 MG/DL (0.0-0.3) H Aspartate Amino Transf (AST/SGOT) 39 U/L (15-37) H Alanine Aminotransferase (ALT/SGPT) 35 U/L (12-78) Alkaline Phosphatase 472 U/L (46-116) H C-Reactive Protein, Quantitative 7.8 mg/dL (0.00-0.90) H Pro-B-Type Natriuretic Peptide 876 pg/mL (0-125) H Total Protein 6.3 G/DL (6.4-8.2) L Albumin 2.1 G/DL (3.4-5.0) L Globulin 4.2 g/dL Albumin/Globulin Ratio 0.5 (1.0-2.7) L Cortisol AM Sample Pending Mellissa Garcia MD Nov 05, 2018 10:09
--- NOTE | 2018-11-05 10:26 | Cardiology Progress Note ---
Assessment/Plan Status: stable Assessment/Plan Assessment/Plan Assessment/Plan 1. Tachycardia On metoprolol 25 mg GT every 8 hours Continue telemetry 2. Severe hypokalemia. Resolved 3. Dysphagia, status post GJ-tube malfunction. S/P new GJ-tube placement 11/02/18 4. History of respiratory failure, currently off the ventilator, tracheostomy in place 5. Seizure disorder. stable 6. COPD. Continue pulmonary toilet, stable on trach collar 7. Gastroesophageal reflux disease. PPI BID 8. Neurogenic bladder status post suprapubic catheter. Irrigated per urology 9. Hypothyroidism. Continue replacement 10. Quadriplegia. PT/OT 11. Transient hypotension Resolved Subjective Cardiovascular: Reports: no symptoms Respiratory: Reports: no symptoms Gastrointestinal/Abdominal: Reports: no symptoms Genitourinary: Reports: no symptoms Subjective Coverage for Rinku Remains in ICU on trach collar, tolerated feeds, suprapubic cath irrigated, remains tachycardic, BP stable on leveophed Objective Last 24 Hour Vital Signs Date Time Temp Pulse Resp B/P (MAP) Pulse Ox O2 Delivery O2 Flow Rate FiO2 11/05/18 10:15 108 26 89/55 (66) 98 11/05/18 10:00 106 27 98/62 (74) 98 11/05/18 09:45 105 26 95/66 (76) 98 11/05/18 09:30 112 23 103/64 (77) 100 11/05/18 09:15 100 23 103/64 (77) 100 11/05/18 09:00 102 24 106/61 (76) 100 11/05/18 08:55 103/68 11/05/18 08:45 102 26 113/70 (84) 100 11/05/18 08:30 102 23 83/53 (63) 100 11/05/18 08:15 103 24 87/56 (66) 100 11/05/18 08:00 Trach Collar 6.0 11/05/18 08:00 108 11/05/18 08:00 91/56 11/05/18 08:00 6.0 28 11/05/18 08:00 98.9 101 24 91/56 (68) 100 11/05/18 07:45 101 22 91/56 (68) 100 11/05/18 07:32 99 Trach Collar 6.0 28 11/05/18 07:30 107 26 91/55 (67) 99 11/05/18 07:15 110 26 96/58 (71) 100 11/05/18 07:00 116 22 114/66 (82) 100 11/05/18 07:00 114/66 11/05/18 06:03 119 112/68 11/05/18 06:00 116 22 114/66 (82) 100 11/05/18 06:00 114/66 11/05/18 05:30 117 23 112/68 (83) 99 11/05/18 05:00 117 22 117/73 (88) 100 11/05/18 05:00 117/73 11/05/18 04:36 T-piece 11/05/18 04:30 105 24 98/67 (77) 99 11/05/18 04:00 98 11/05/18 04:00 28.0 11/05/18 04:00 102/76 11/05/18 04:00 98.6 99 23 102/76 (85) 99 11/05/18 03:30 111 26 100/72 (81) 99 11/05/18 03:00 92 23 99/69 (79) 99 11/05/18 03:00 109/75 11/05/18 02:30 106 23 109/76 (87) 100 11/05/18 02:07 91 23 88/43 (58) 98 11/05/18 02:00 91 25 84/53 (63) 98 11/05/18 02:00 79/57 11/05/18 01:30 111 24 90/55 (67) 99 11/05/18 01:02 99 Trach Collar 6.0 28 11/05/18 01:00 125 26 115/66 (82) 99 11/05/18 01:00 115/66 11/05/18 00:30 100 24 100/60 (73) 99 11/05/18 00:00 98.5 92 25 101/60 (74) 100 11/05/18 00:00 28.0 11/05/18 00:00 86 11/05/18 00:00 100/60 11/05/18 00:00 T-piece 11/04/18 23:30 84 24 99/51 (67) 100 11/04/18 23:25 98/51 11/04/18 23:00 78 23 98/51 (67) 100 11/04/18 23:00 94/50 11/04/18 22:30 74 24 104/54 (71) 100 11/04/18 22:00 65 22 108/56 (73) 100 11/04/18 22:00 104/54 11/04/18 21:30 75 24 98/47 (64) 100 11/04/18 21:19 69 93/51 11/04/18 21:00 80 24 93/51 (65) 100 11/04/18 21:00 94/45 11/04/18 20:30 86 21 97/56 (70) 100 11/04/18 20:00 T-piece 11/04/18 20:00 84 11/04/18 20:00 93/46 11/04/18 20:00 98.5 80 23 98/56 (70) 100 11/04/18 20:00 28.0 11/04/18 19:30 84 24 93/49 (64) 100 11/04/18 19:15 100 Trach Collar 6.0 28 11/04/18 19:00 89 26 91/49 (63) 100 11/04/18 19:00 91/49 11/04/18 18:30 95 16 113/60 (77) 100 11/04/18 18:00 81 21 105/52 (69) 100 11/04/18 18:00 105/52 11/04/18 17:45 78 25 /54 99 11/04/18 17:30 71 23 92/54 (67) 99 11/04/18 17:15 68 23 94/55 (68) 100 11/04/18 17:00 99/61 11/04/18 17:00 64 22 99/57 (71) 100 11/04/18 16:45 106 24 88/53 (65) 100 11/04/18 16:30 105 25 77/46 (56) 100 11/04/18 16:15 71 23 118/71 (87) 100 11/04/18 16:00 6.0 28 11/04/18 16:00 83 11/04/18 16:00 Trach Collar 6.0 11/04/18 16:00 109/61 11/04/18 16:00 98.1 67 22 109/61 (77) 100 11/04/18 15:30 62 23 119/68 (85) 100 11/04/18 15:15 93 23 85/53 (64) 100 11/04/18 15:01 81/49 11/04/18 15:00 92 22 88/51 (63) 100 11/04/18 14:00 92 25 115/69 (84) 100 11/04/18 13:18 102 79/50 11/04/18 13:00 103 24 79/50 (60) 100 11/04/18 12:56 100 Trach Collar 6.0 28 11/04/18 12:00 98.0 115 22 81/46 (58) 100 11/04/18 12:00 103 11/04/18 12:00 Trach Collar 6.0 11/04/18 12:00 6.0 28 11/04/18 11:00 101 24 94/51 (65) 100 General Appearance: no apparent distress, alert EENT: PERRL/EOMI, normal ENT inspection, TMs normal, pharynx normal Neck: non-tender, normal alignment, supple, normal inspection, no JVD Rhythm: NSR Cardiovascular: normal peripheral pulses, normal rate, regular rhythm Respiratory/Chest: chest wall non-tender, lungs clear, normal breath sounds Abdomen: normal bowel sounds, non tender, soft, no organomegaly, no mass 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: 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 grossly normal, no motor/sensory deficits Intake and Output 11/04/18 11/05/18 19:00 07:00 Intake Total 2982.5 ml 1690 ml Output Total 1490 ml 2600 ml Balance 1492.5 ml -910 ml Free Water 200 ml 300 ml IV Total 1937.5 ml 610 ml Tube Feeding 845 ml 780 ml Output Urine Total 860 ml 2050 ml Other 630 ml 550 ml # Bowel Movements 7 Laboratory Tests Test 11/05/18 04:20 White Blood Count 6.7 K/UL (4.8-10.8) Red Blood Count 4.43 M/UL (4.70-6.10) L Hemoglobin 12.9 G/DL (14.2-18.0) L Hematocrit 40.0 % (42.0-52.0) L Mean Corpuscular Volume 90 FL (80-99) Mean Corpuscular Hemoglobin 29.1 PG (27.0-31.0) Mean Corpuscular Hemoglobin Concent 32.2 G/DL (32.0-36.0) Red Cell Distribution Width 18.4 % (11.6-14.8) H Platelet Count 308 K/UL (150-450) Mean Platelet Volume 5.9 FL (6.5-10.1) L Neutrophils (%) (Auto) 65.7 % (45.0-75.0) Lymphocytes (%) (Auto) 21.6 % (20.0-45.0) Monocytes (%) (Auto) 8.6 % (1.0-10.0) Eosinophils (%) (Auto) 3.2 % (0.0-3.0) H Basophils (%) (Auto) 0.9 % (0.0-2.0) Sodium Level 139 MMOL/L (136-145) Potassium Level 3.5 MMOL/L (3.5-5.1) Chloride Level 105 MMOL/L (98-107) Carbon Dioxide Level 28 MMOL/L (21-32) Anion Gap 7 mmol/L (5-15) Blood Urea Nitrogen 6 mg/dL (7-18) L Creatinine 0.4 MG/DL (0.55-1.30) L Estimat Glomerular Filtration Rate > 60 mL/min (>60) Glucose Level 156 MG/DL (74-106) H Uric Acid 2.0 MG/DL (2.6-7.2) L Calcium Level 8.0 MG/DL (8.5-10.1) L Phosphorus Level 2.0 MG/DL (2.5-4.9) L Magnesium Level 1.6 MG/DL (1.8-2.4) L Total Bilirubin 1.7 MG/DL (0.2-1.0) H Direct Bilirubin 1.0 MG/DL (0.0-0.3) H Aspartate Amino Transf (AST/SGOT) 39 U/L (15-37) H Alanine Aminotransferase (ALT/SGPT) 35 U/L (12-78) Alkaline Phosphatase 472 U/L (46-116) H C-Reactive Protein, Quantitative 7.8 mg/dL (0.00-0.90) H Pro-B-Type Natriuretic Peptide 876 pg/mL (0-125) H Total Protein 6.3 G/DL (6.4-8.2) L Albumin 2.1 G/DL (3.4-5.0) L Globulin 4.2 g/dL Albumin/Globulin Ratio 0.5 (1.0-2.7) L Cortisol AM Sample 8.3 UG/DL Microbiology Date/Time Source Procedure Growth Status 11/03/18 12:40 Urine,Clean Catch Urine Culture - Final Yeast Species Complete Nikita Reddy MD Nov 05, 2018 10:26
--- NOTE | 2018-11-05 10:30 | NUR ---
RD ASSESSMENT & RECOMMENDATIONS SEE CARE ACTIVITY FOR COMPLETE ASSESSMENT DAILY ESTIMATED NEEDS: Needs based on Pulmonary, quadriplegia 78kg adj 23-28 kcals/kg 2167-1802 total kcals 1-1.5 g protein/kg 78-117 g total protein 25-30 mL/kg 7412-7292 total fluid mLs NUTRITION DIAGNOSIS: Swallowing difficulty r/t respiratory status as evidenced by pt is vent dep via T-collar, PEJ dep. (CURRENT TF:Jevity 1.2 @ 65ml/hr x 24 hrs) ENTERAL NUTRITION RECOMMENDATIONS: Osmolite 1.2 @ 65ml/hr x 24 hrs to provide 1560ml, 1872 kcal, 87g pro, 1279 ml free H2o W/ continued multiple bm's, rec TF change to Osmolite 1.2. W/ current pressor support, rec low rate of 20-30ml/hr and monitor tolerance and hemodynamic stability. - TF @goal meets 100% est needs. Advance only when stable @10ml/hr q4-6 hrs. - Flush per MD/ HOB over 30 degrees. ADDITIONAL RECOMMENDATIONS: 1) Monitor lytes daily, replete as needed 2) Re-evaluate TF recs if Synthroid re-added (DC'ed at this time) 3) Monitor hemodynamic stability- TF recs as above when unstable 4) Monitor BG on TF's and need for hypoglycemic agent 5) Calibrated bed scale wt- bed w/ added P200 mattress . .
--- NOTE | 2018-11-05 10:52 | Infectious Diseases Prog Note ---
Assessment/Plan Assessment/Plan Assessment: Sepsis 2ry to GNR bacteremia (suspect from urinary source given hydronephrosis and chronic suprapubic catheter); now shock, on pressors- r/o PNA, bacteremia, acute cholecysititis or cholangitis -11/03 u/a (delayed collection) wbc 20-30, nit neg, leuk +3; ucx NTD -10/30 BCx 4/4 ESBL P. mirabilis (S Ertapenem, ZOsyn); 10/31 BCx <10k yeast ( colonzier) -spc x MDR ABC (I Gentamicin; S polymixin B, Colistin, minocycline); colonizer -11/03 CXR: Low lung volumes leading tobronchovascular crowding. Bibasilar subsegmental atelectasis. No new airspace consolidation. -CT abd/p: Thickening of the underdistended urinary bladder is concerning for cystitis. Consider correlation with urinalysis. Moderate bilateral hydroureteronephrosis. Moderate stool in the rectosigmoid colon is suggestive of constipation. Morphologic features of cirrhosis. Cholelithiasis. -CXR: Left hemidiaphragm is elevated but this appears stable. PICC line and tracheostomy noted. Cardiomegaly is stable. Bones are osteopenic. JT dislodgement and leakage w/ surrounding cellulitis -wound cx MDR ABC (I genta); colonizer Elevated LFTs- r/o hepatobiliary disease Fever; SP No leukocytosis paraplegia neurogenic bladder COPD GERD seizure disorder s/p trach dysphagia s/p J tube placement 10/22/18 [place] resident Plan: -Continue Meropenem #3/-14 for ESBL bacteremia and resume empiric IV Vancomycin given worsening shock -11/03 SP Cefepime #5 -11/02 SP IV Vancomycin #5 -10/29 SP Amikacin #1 and Flagyl #1 -f/u cx -Monitor CBC/CMP, temperatures -trach/JT care -GI, Sx f/u -aspiration precautions -Bcx x2 -CXR Thank you for this consultation. Will continue to follow along with you. Discussed with RN. Subjective Allergies: Coded Allergies: SULFAMETHOXAZOLE (Verified Allergy, Unknown, 10/18/17) TRIMETHOPRIM (Verified Allergy, Unknown, 10/18/17) Subjective on levophed afebrile no leukocytosis repeat Bcx NTD Objective Vital Signs Last 24 Hour Vital Signs Date Time Temp Pulse Resp B/P (MAP) Pulse Ox O2 Delivery O2 Flow Rate FiO2 11/05/18 10:30 109 26 89/57 (68) 98 11/05/18 10:15 108 26 89/55 (66) 98 11/05/18 10:00 106 27 98/62 (74) 98 11/05/18 10:00 98/61 11/05/18 09:45 105 26 95/66 (76) 98 11/05/18 09:30 112 23 103/64 (77) 100 11/05/18 09:15 100 23 103/64 (77) 100 11/05/18 09:00 102 24 106/61 (76) 100 11/05/18 09:00 106/61 11/05/18 08:55 103/68 11/05/18 08:45 102 26 113/70 (84) 100 11/05/18 08:30 102 23 83/53 (63) 100 11/05/18 08:15 103 24 87/56 (66) 100 11/05/18 08:00 Trach Collar 6.0 11/05/18 08:00 108 11/05/18 08:00 91/56 11/05/18 08:00 6.0 28 11/05/18 08:00 98.9 101 24 91/56 (68) 100 11/05/18 07:45 101 22 91/56 (68) 100 11/05/18 07:32 99 Trach Collar 6.0 28 11/05/18 07:30 107 26 91/55 (67) 99 11/05/18 07:15 110 26 96/58 (71) 100 11/05/18 07:00 116 22 114/66 (82) 100 11/05/18 07:00 114/66 11/05/18 06:03 119 112/68 11/05/18 06:00 116 22 114/66 (82) 100 11/05/18 06:00 114/66 11/05/18 05:30 117 23 112/68 (83) 99 11/05/18 05:00 117 22 117/73 (88) 100 11/05/18 05:00 117/73 11/05/18 04:36 T-piece 11/05/18 04:30 105 24 98/67 (77) 99 11/05/18 04:00 98 11/05/18 04:00 28.0 11/05/18 04:00 102/76 11/05/18 04:00 98.6 99 23 102/76 (85) 99 11/05/18 03:30 111 26 100/72 (81) 99 11/05/18 03:00 92 23 99/69 (79) 99 11/05/18 03:00 109/75 11/05/18 02:30 106 23 109/76 (87) 100 11/05/18 02:07 91 23 88/43 (58) 98 11/05/18 02:00 91 25 84/53 (63) 98 11/05/18 02:00 79/57 11/05/18 01:30 111 24 90/55 (67) 99 11/05/18 01:02 99 Trach Collar 6.0 28 11/05/18 01:00 125 26 115/66 (82) 99 11/05/18 01:00 115/66 11/05/18 00:30 100 24 100/60 (73) 99 11/05/18 00:00 98.5 92 25 101/60 (74) 100 11/05/18 00:00 28.0 11/05/18 00:00 86 11/05/18 00:00 100/60 11/05/18 00:00 T-piece 11/04/18 23:30 84 24 99/51 (67) 100 11/04/18 23:25 98/51 11/04/18 23:00 78 23 98/51 (67) 100 11/04/18 23:00 94/50 11/04/18 22:30 74 24 104/54 (71) 100 11/04/18 22:00 65 22 108/56 (73) 100 11/04/18 22:00 104/54 11/04/18 21:30 75 24 98/47 (64) 100 11/04/18 21:19 69 93/51 11/04/18 21:00 80 24 93/51 (65) 100 11/04/18 21:00 94/45 11/04/18 20:30 86 21 97/56 (70) 100 11/04/18 20:00 T-piece 11/04/18 20:00 84 11/04/18 20:00 93/46 11/04/18 20:00 98.5 80 23 98/56 (70) 100 11/04/18 20:00 28.0 11/04/18 19:30 84 24 93/49 (64) 100 11/04/18 19:15 100 Trach Collar 6.0 28 11/04/18 19:00 89 26 91/49 (63) 100 11/04/18 19:00 91/49 11/04/18 18:30 95 16 113/60 (77) 100 11/04/18 18:00 81 21 105/52 (69) 100 11/04/18 18:00 105/52 11/04/18 17:45 78 25 /54 99 11/04/18 17:30 71 23 92/54 (67) 99 11/04/18 17:15 68 23 94/55 (68) 100 11/04/18 17:00 99/61 11/04/18 17:00 64 22 99/57 (71) 100 11/04/18 16:45 106 24 88/53 (65) 100 11/04/18 16:30 105 25 77/46 (56) 100 11/04/18 16:15 71 23 118/71 (87) 100 11/04/18 16:00 6.0 28 11/04/18 16:00 83 11/04/18 16:00 Trach Collar 6.0 11/04/18 16:00 109/61 11/04/18 16:00 98.1 67 22 109/61 (77) 100 11/04/18 15:30 62 23 119/68 (85) 100 11/04/18 15:15 93 23 85/53 (64) 100 11/04/18 15:01 81/49 11/04/18 15:00 92 22 88/51 (63) 100 11/04/18 14:00 92 25 115/69 (84) 100 11/04/18 13:18 102 79/50 11/04/18 13:00 103 24 79/50 (60) 100 11/04/18 12:56 100 Trach Collar 6.0 28 11/04/18 12:00 98.0 115 22 81/46 (58) 100 11/04/18 12:00 103 11/04/18 12:00 Trach Collar 6.0 11/04/18 12:00 6.0 28 11/04/18 11:00 101 24 94/51 (65) 100 Height (Feet): 5 Height (Inches): 4.00 Weight (Pounds): 220 Objective General Appearance: WD/WN, no apparent distress, alert Cardiovascular: normal rate Respiratory/Chest: normal breath sounds, no respiratory distress Abdominal Exam: normal bowel sounds, non tender, soft, GT site - c/d/i Extremities: non-tender Microbiology Date/Time Source Procedure Growth Status 11/03/18 12:40 Urine,Clean Catch Urine Culture - Final Yeast Species Complete Laboratory Tests Test 11/05/18 04:20 White Blood Count 6.7 K/UL (4.8-10.8) Red Blood Count 4.43 M/UL (4.70-6.10) L Hemoglobin 12.9 G/DL (14.2-18.0) L Hematocrit 40.0 % (42.0-52.0) L Mean Corpuscular Volume 90 FL (80-99) Mean Corpuscular Hemoglobin 29.1 PG (27.0-31.0) Mean Corpuscular Hemoglobin Concent 32.2 G/DL (32.0-36.0) Red Cell Distribution Width 18.4 % (11.6-14.8) H Platelet Count 308 K/UL (150-450) Mean Platelet Volume 5.9 FL (6.5-10.1) L Neutrophils (%) (Auto) 65.7 % (45.0-75.0) Lymphocytes (%) (Auto) 21.6 % (20.0-45.0) Monocytes (%) (Auto) 8.6 % (1.0-10.0) Eosinophils (%) (Auto) 3.2 % (0.0-3.0) H Basophils (%) (Auto) 0.9 % (0.0-2.0) Sodium Level 139 MMOL/L (136-145) Potassium Level 3.5 MMOL/L (3.5-5.1) Chloride Level 105 MMOL/L (98-107) Carbon Dioxide Level 28 MMOL/L (21-32) Anion Gap 7 mmol/L (5-15) Blood Urea Nitrogen 6 mg/dL (7-18) L Creatinine 0.4 MG/DL (0.55-1.30) L Estimat Glomerular Filtration Rate > 60 mL/min (>60) Glucose Level 156 MG/DL (74-106) H Uric Acid 2.0 MG/DL (2.6-7.2) L Calcium Level 8.0 MG/DL (8.5-10.1) L Phosphorus Level 2.0 MG/DL (2.5-4.9) L Magnesium Level 1.6 MG/DL (1.8-2.4) L Total Bilirubin 1.7 MG/DL (0.2-1.0) H Direct Bilirubin 1.0 MG/DL (0.0-0.3) H Aspartate Amino Transf (AST/SGOT) 39 U/L (15-37) H Alanine Aminotransferase (ALT/SGPT) 35 U/L (12-78) Alkaline Phosphatase 472 U/L (46-116) H C-Reactive Protein, Quantitative 7.8 mg/dL (0.00-0.90) H Pro-B-Type Natriuretic Peptide 876 pg/mL (0-125) H Total Protein 6.3 G/DL (6.4-8.2) L Albumin 2.1 G/DL (3.4-5.0) L Globulin 4.2 g/dL Albumin/Globulin Ratio 0.5 (1.0-2.7) L Cortisol AM Sample 8.3 UG/DL Current Medications Medications (Trade) Dose Ordered Sig/Vicenta Route PRN Reason Start Time Stop Time Status Last Admin Dose Admin Acetaminophen (Tylenol) 650 mg Q4H PRN ORAL fever 11/03/18 12:30 11/27/18 12:29 Acetaminophen (Tylenol) 650 mg Q4H PRN RECTAL Mild Pain (Pain Scale 1-3) 11/03/18 14:45 11/28/18 10:44 Chlorhexidine Gluconate (Caitlyn-Hex 2%) 1 applic DAILY@1999 TOPIC 11/03/18 20:00 11/28/18 19:59 11/04/18 20:26 Dextrose (Dextrose 50%) 25 ml Q30M PRN IV Hypoglycemia 11/03/18 12:30 11/27/18 14:29 Dextrose (Dextrose 50%) 50 ml Q30M PRN IV Hypoglycemia 11/03/18 12:30 11/27/18 14:29 Docusate Sodium (Colace) 100 mg BID GT 11/03/18 18:00 12/03/18 17:59 Gabapentin (Neurontin) 600 mg Q6HR GT 11/03/18 12:00 11/27/18 17:59 11/05/18 06:03 Heparin Sodium (Porcine) (Heparin 5000 units/ml) 5,000 units EVERY 12 HOURS SUBQ 11/03/18 21:00 11/27/18 20:59 11/05/18 08:46 Levetiracetam 100 ml @ 400 mls/hr Q12HR IVPB 11/03/18 21:00 11/30/18 20:59 11/05/18 08:47 Lorazepam (Ativan 2mg/ml 1ml) 1 mg Q4H PRN IV agitation 11/03/18 12:11 11/10/18 12:10 Magnesium Sulfate 100 ml @ 100 mls/hr Q1H IVPB 11/05/18 08:15 11/05/18 12:14 11/05/18 10:17 Meropenem 1 gm/ Sodium Chloride 55 ml @ 110 mls/hr Q8HR IVPB 11/03/18 14:00 11/08/18 13:59 11/05/18 06:04 Metoclopramide HCl (Reglan) 10 mg Q6H PRN IVP severe nausea 11/03/18 12:11 12/03/18 12:10 Metoprolol Tartrate (Lopressor) 25 mg Q8HR GT 11/03/18 14:00 12/02/18 21:59 11/05/18 06:03 Midodrine (Pro-Amatine) 10 mg EVERY 8 HOURS ORAL 11/04/18 14:00 12/04/18 13:59 11/05/18 06:04 Mineral Oil (Fleet's Mineral Oil Enema) 133 ml EVERY OTHER DAY RECTAL 11/04/18 09:00 11/30/18 08:59 Morphine Sulfate (Morphine Sulfate) 2 mg Q4H PRN IVP severe Pain (Pain Scale 7-10) 11/03/18 12:12 11/10/18 12:11 Nitroglycerin (Ntg) 0.4 mg Q5M X 3 DOSES PRN SL Prn Chest Pain 11/03/18 12:12 12/03/18 12:11 Norepinephrine Bitartrate 4 mg/ Dextrose 250 ml @ 0 mls/hr Q24H IV 11/03/18 13:00 12/03/18 12:59 11/05/18 08:55 Pantoprazole (Protonix) 40 mg DAILY IV 11/04/18 09:00 11/28/18 08:59 11/05/18 08:45 Polyethylene Glycol (Miralax) 17 gm BEDTIME GT 11/03/18 21:00 12/03/18 20:59 Polyethylene Glycol (Miralax) 17 gm HSPRN PRN GT Constipation 11/03/18 12:12 12/03/18 12:11 Potassium Phosphate 30 mm/ Sodium Chloride 285 ml @ 47.5 mls/hr ONCE IV 11/05/18 09:00 11/05/18 15:00 11/05/18 08:45 Zinc Oxide (Zinc Oxide) 1 applic TIDPRN PRN TOPIC around g tube site 11/03/18 13:00 12/03/18 12:59 Kimi Ramos M.D. Nov 05, 2018 10:52
--- NOTE | 2018-11-05 12:05 | Diagnostic Imaging Report ---
Indication: Cough Technique: One view of the chest Comparison: 11/03/2018 Findings: There is some atelectasis at the left lung base again demonstrated, slightly increased. There is increasing hazy consolidation at the left lung base bilateral pleural spaces remain clear. Heart size is upper limits of normal. Tracheostomy, right arm PICC remain Impression: Increasing left basilar atelectasis and hazy parenchymal infiltrate, overt 2 days
--- NOTE | 2018-11-05 12:44 | NUR ---
NURSE NOTES: INFORMED DR DIAS OF THE CXRAY RESULT NEW ORDER MADE AND CARRIED OUT. WILL CONTINUE TO MONITOR.
--- NOTE | 2018-11-05 13:15 | NUR ---
NURSE NOTES: REPLACED TRACH TO CUFFED SHILEY 6. TOLERATING VENT SETTINGS OF THE MOMENT. ABG TO FOLLOW. WILL CONTINUE TO MONITOR.
--- NOTE | 2018-11-05 13:47 | NUR ---
RESPIRATORY NOTES: Replaced patients cuffless Shiley 6 XLT with a cuffed Shiley 6 DCT. Minimal bleeding after insertion. Secured with trache ties. Patient tolerating well.
--- NOTE | 2018-11-05 13:52 | Nephrology Progress Note ---
Assessment/Plan Problem List: (1) Hypokalemia (2) Malfunction of gastrostomy tube (3) Malfunction of jejunostomy tube (4) Seizures Assessment Sever hypokalemia Low mag other conditions; 1. JG tube malfunction and leaks. 2. Respiratory failure. 3. Seizure disorder. 4. Chronic obstructive pulmonary disease. 5. Gastroesophageal reflux disease. 6. Neurogenic bladder. 7. Hypothyroidism. 8. Quadriplegia. 9. Tracheostomy in situ. 10.Thrombocytopenia. Plan BP support Vigorous K supplement IV waiting for GT functionality ! ( Per GI) Monitor lytes and renal parameters per orders Subjective ROS Limited/Unobtainable: Yes Objective Objective Last 24 Hour Vital Signs Date Time Temp Pulse Resp B/P (MAP) Pulse Ox O2 Delivery O2 Flow Rate FiO2 11/05/18 13:42 120 27 28 11/05/18 13:30 117 14 109/73 (85) 99 11/05/18 13:14 28 11/05/18 13:00 28 11/05/18 13:00 109 25 99/64 (76) 99 11/05/18 12:36 100 Trach Collar 6.0 28 11/05/18 12:30 109 24 91/57 (68) 99 11/05/18 12:00 6.0 28 11/05/18 12:00 108 11/05/18 12:00 94/59 11/05/18 12:00 97.5 99 23 94/59 (71) 100 11/05/18 11:30 108 24 94/61 (72) 98 11/05/18 11:00 107 18 99/65 (76) 100 11/05/18 11:00 99/59 11/05/18 10:30 109 26 89/57 (68) 98 11/05/18 10:15 108 26 89/55 (66) 98 11/05/18 10:00 106 27 98/62 (74) 98 11/05/18 10:00 98/61 11/05/18 09:45 105 26 95/66 (76) 98 11/05/18 09:30 112 23 103/64 (77) 100 11/05/18 09:15 100 23 103/64 (77) 100 11/05/18 09:00 102 24 106/61 (76) 100 11/05/18 09:00 106/61 11/05/18 08:55 103/68 11/05/18 08:45 102 26 113/70 (84) 100 11/05/18 08:30 102 23 83/53 (63) 100 11/05/18 08:15 103 24 87/56 (66) 100 11/05/18 08:00 Trach Collar 6.0 11/05/18 08:00 108 11/05/18 08:00 91/56 11/05/18 08:00 6.0 28 11/05/18 08:00 98.9 101 24 91/56 (68) 100 11/05/18 07:45 101 22 91/56 (68) 100 11/05/18 07:32 99 Trach Collar 6.0 28 11/05/18 07:30 107 26 91/55 (67) 99 11/05/18 07:15 110 26 96/58 (71) 100 11/05/18 07:00 116 22 114/66 (82) 100 11/05/18 07:00 114/66 11/05/18 06:03 119 112/68 11/05/18 06:00 116 22 114/66 (82) 100 11/05/18 06:00 114/66 11/05/18 05:30 117 23 112/68 (83) 99 11/05/18 05:00 117 22 117/73 (88) 100 11/05/18 05:00 117/73 11/05/18 04:36 T-piece 11/05/18 04:30 105 24 98/67 (77) 99 11/05/18 04:00 98 11/05/18 04:00 28.0 11/05/18 04:00 102/76 11/05/18 04:00 98.6 99 23 102/76 (85) 99 11/05/18 03:30 111 26 100/72 (81) 99 11/05/18 03:00 92 23 99/69 (79) 99 11/05/18 03:00 109/75 11/05/18 02:30 106 23 109/76 (87) 100 11/05/18 02:07 91 23 88/43 (58) 98 11/05/18 02:00 91 25 84/53 (63) 98 11/05/18 02:00 79/57 11/05/18 01:30 111 24 90/55 (67) 99 11/05/18 01:02 99 Trach Collar 6.0 28 11/05/18 01:00 125 26 115/66 (82) 99 11/05/18 01:00 115/66 11/05/18 00:30 100 24 100/60 (73) 99 11/05/18 00:00 98.5 92 25 101/60 (74) 100 11/05/18 00:00 28.0 11/05/18 00:00 86 11/05/18 00:00 100/60 11/05/18 00:00 T-piece 11/04/18 23:30 84 24 99/51 (67) 100 11/04/18 23:25 98/51 11/04/18 23:00 78 23 98/51 (67) 100 11/04/18 23:00 94/50 11/04/18 22:30 74 24 104/54 (71) 100 11/04/18 22:00 65 22 108/56 (73) 100 11/04/18 22:00 104/54 11/04/18 21:30 75 24 98/47 (64) 100 11/04/18 21:19 69 93/51 11/04/18 21:00 80 24 93/51 (65) 100 11/04/18 21:00 94/45 11/04/18 20:30 86 21 97/56 (70) 100 11/04/18 20:00 T-piece 11/04/18 20:00 84 11/04/18 20:00 93/46 11/04/18 20:00 98.5 80 23 98/56 (70) 100 11/04/18 20:00 28.0 11/04/18 19:30 84 24 93/49 (64) 100 11/04/18 19:15 100 Trach Collar 6.0 28 11/04/18 19:00 89 26 91/49 (63) 100 11/04/18 19:00 91/49 11/04/18 18:30 95 16 113/60 (77) 100 11/04/18 18:00 81 21 105/52 (69) 100 11/04/18 18:00 105/52 11/04/18 17:45 78 25 /54 99 11/04/18 17:30 71 23 92/54 (67) 99 11/04/18 17:15 68 23 94/55 (68) 100 11/04/18 17:00 99/61 11/04/18 17:00 64 22 99/57 (71) 100 11/04/18 16:45 106 24 88/53 (65) 100 11/04/18 16:30 105 25 77/46 (56) 100 11/04/18 16:15 71 23 118/71 (87) 100 11/04/18 16:00 6.0 28 11/04/18 16:00 83 11/04/18 16:00 Trach Collar 6.0 11/04/18 16:00 109/61 11/04/18 16:00 98.1 67 22 109/61 (77) 100 11/04/18 15:30 62 23 119/68 (85) 100 11/04/18 15:15 93 23 85/53 (64) 100 11/04/18 15:01 81/49 11/04/18 15:00 92 22 88/51 (63) 100 11/04/18 14:00 92 25 115/69 (84) 100 Intake and Output 11/04/18 11/05/18 19:00 07:00 Intake Total 2982.5 ml 1690 ml Output Total 1490 ml 2600 ml Balance 1492.5 ml -910 ml Free Water 200 ml 300 ml IV Total 1937.5 ml 610 ml Tube Feeding 845 ml 780 ml Output Urine Total 860 ml 2050 ml Other 630 ml 550 ml # Bowel Movements 7 Laboratory Tests 11/05/18 04:20: White Blood Count 6.7, Red Blood Count 4.43L, Hemoglobin 12.9L, Hematocrit 40.0L , Mean Corpuscular Volume 90, Mean Corpuscular Hemoglobin 29.1, Mean Corpuscular Hemoglobin Concent 32.2, Red Cell Distribution Width 18.4H, Platelet Count 308, Mean Platelet Volume 5.9L, Neutrophils (%) (Auto) 65.7, Lymphocytes (%) (Auto) 21.6, Monocytes (%) (Auto) 8.6, Eosinophils (%) (Auto) 3.2H, Basophils (%) (Auto) 0.9, Sodium Level 139, Potassium Level 3.5, Chloride Level 105, Carbon Dioxide Level 28, Anion Gap 7, Blood Urea Nitrogen 6L, Creatinine 0.4L, Estimat Glomerular Filtration Rate > 60, Glucose Level 156H, Uric Acid 2.0L, Calcium Level 8.0L, Phosphorus Level 2.0L, Magnesium Level 1.6L , Total Bilirubin 1.7H, Direct Bilirubin 1.0H, Aspartate Amino Transf (AST/SGOT ) 39H, Alanine Aminotransferase (ALT/SGPT) 35, Alkaline Phosphatase 472H, C- Reactive Protein, Quantitative 7.8H, Pro-B-Type Natriuretic Peptide 876H, Total Protein 6.3L, Albumin 2.1L, Globulin 4.2, Albumin/Globulin Ratio 0.5L, Cortisol AM Sample 8.3 Height (Feet): 5 Height (Inches): 4.00 Weight (Pounds): 220 General Appearance: no apparent distress EENT: other - trach to O2 tube Respiratory/Chest: decreased breath sounds Abdomen: distended Sudhakar Silverman MD Nov 05, 2018 13:52
--- NOTE | 2018-11-05 13:57 | NUR ---
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 97.5 HR 108 RR 24 B/P 89/55 BNP 876 MG 1.7 CXR= LEFT ATELECTASIS AND HAZY PARENCHYMAL INFILTRATES IS: LEVOPHED GTT MEROPENEM IV MAGNESIUM IV K-PHOS IV KEPPRA IV MIDODRINE PO ICU STATUS
--- NOTE | 2018-11-05 14:45 | NUR ---
*-* INSURANCE *-* ALL CLINICALS HAVE BEEN FAXED TO: [facility] [phone] HE IS POST SPLITTER ASSIGNED REF#[id number] POST SPLITTER: JAXON #[phone] FAX#[phone] REVIEWS/CLINICAL
--- NOTE | 2018-11-05 14:50 | Surgery Progress Note ---
Surgery Progress Note Subjective Additional Comments no acute events Objective Last 24 Hour Vital Signs Date Time Temp Pulse Resp B/P (MAP) Pulse Ox O2 Delivery O2 Flow Rate FiO2 11/05/18 14:30 110 14 103/66 (78) 99 11/05/18 14:00 113 14 90/58 (69) 98 11/05/18 14:00 118 82/56 11/05/18 13:50 120 27 100 Mechanical Ventilator 65.0 28 11/05/18 13:42 120 27 28 11/05/18 13:30 117 14 109/73 (85) 99 11/05/18 13:14 28 11/05/18 13:00 28 11/05/18 13:00 109 25 99/64 (76) 99 11/05/18 12:36 100 Trach Collar 6.0 28 11/05/18 12:30 109 24 91/57 (68) 99 11/05/18 12:00 6.0 28 11/05/18 12:00 108 11/05/18 12:00 94/59 11/05/18 12:00 97.5 99 23 94/59 (71) 100 11/05/18 11:30 108 24 94/61 (72) 98 11/05/18 11:00 107 18 99/65 (76) 100 11/05/18 11:00 99/59 11/05/18 10:30 109 26 89/57 (68) 98 11/05/18 10:15 108 26 89/55 (66) 98 11/05/18 10:00 106 27 98/62 (74) 98 11/05/18 10:00 98/61 11/05/18 09:45 105 26 95/66 (76) 98 11/05/18 09:30 112 23 103/64 (77) 100 11/05/18 09:15 100 23 103/64 (77) 100 11/05/18 09:00 102 24 106/61 (76) 100 11/05/18 09:00 106/61 11/05/18 08:55 103/68 11/05/18 08:45 102 26 113/70 (84) 100 11/05/18 08:30 102 23 83/53 (63) 100 11/05/18 08:15 103 24 87/56 (66) 100 11/05/18 08:00 Trach Collar 6.0 11/05/18 08:00 108 11/05/18 08:00 91/56 11/05/18 08:00 6.0 28 11/05/18 08:00 98.9 101 24 91/56 (68) 100 11/05/18 07:45 101 22 91/56 (68) 100 11/05/18 07:32 99 Trach Collar 6.0 28 11/05/18 07:30 107 26 91/55 (67) 99 11/05/18 07:15 110 26 96/58 (71) 100 11/05/18 07:00 116 22 114/66 (82) 100 11/05/18 07:00 114/66 11/05/18 06:03 119 112/68 11/05/18 06:00 116 22 114/66 (82) 100 11/05/18 06:00 114/66 11/05/18 05:30 117 23 112/68 (83) 99 11/05/18 05:00 117 22 117/73 (88) 100 11/05/18 05:00 117/73 11/05/18 04:36 T-piece 11/05/18 04:30 105 24 98/67 (77) 99 11/05/18 04:00 98 11/05/18 04:00 28.0 11/05/18 04:00 102/76 11/05/18 04:00 98.6 99 23 102/76 (85) 99 11/05/18 03:30 111 26 100/72 (81) 99 11/05/18 03:00 92 23 99/69 (79) 99 11/05/18 03:00 109/75 11/05/18 02:30 106 23 109/76 (87) 100 11/05/18 02:07 91 23 88/43 (58) 98 11/05/18 02:00 91 25 84/53 (63) 98 11/05/18 02:00 79/57 11/05/18 01:30 111 24 90/55 (67) 99 11/05/18 01:02 99 Trach Collar 6.0 28 11/05/18 01:00 125 26 115/66 (82) 99 11/05/18 01:00 115/66 11/05/18 00:30 100 24 100/60 (73) 99 11/05/18 00:00 98.5 92 25 101/60 (74) 100 11/05/18 00:00 28.0 11/05/18 00:00 86 11/05/18 00:00 100/60 11/05/18 00:00 T-piece 11/04/18 23:30 84 24 99/51 (67) 100 11/04/18 23:25 98/51 11/04/18 23:00 78 23 98/51 (67) 100 11/04/18 23:00 94/50 11/04/18 22:30 74 24 104/54 (71) 100 11/04/18 22:00 65 22 108/56 (73) 100 11/04/18 22:00 104/54 11/04/18 21:30 75 24 98/47 (64) 100 11/04/18 21:19 69 93/51 11/04/18 21:00 80 24 93/51 (65) 100 11/04/18 21:00 94/45 11/04/18 20:30 86 21 97/56 (70) 100 11/04/18 20:00 T-piece 11/04/18 20:00 84 11/04/18 20:00 93/46 11/04/18 20:00 98.5 80 23 98/56 (70) 100 11/04/18 20:00 28.0 11/04/18 19:30 84 24 93/49 (64) 100 11/04/18 19:15 100 Trach Collar 6.0 28 11/04/18 19:00 89 26 91/49 (63) 100 11/04/18 19:00 91/49 11/04/18 18:30 95 16 113/60 (77) 100 11/04/18 18:00 81 21 105/52 (69) 100 11/04/18 18:00 105/52 11/04/18 17:45 78 25 /54 99 11/04/18 17:30 71 23 92/54 (67) 99 11/04/18 17:15 68 23 94/55 (68) 100 11/04/18 17:00 99/61 11/04/18 17:00 64 22 99/57 (71) 100 11/04/18 16:45 106 24 88/53 (65) 100 11/04/18 16:30 105 25 77/46 (56) 100 11/04/18 16:15 71 23 118/71 (87) 100 11/04/18 16:00 6.0 28 11/04/18 16:00 83 11/04/18 16:00 Trach Collar 6.0 11/04/18 16:00 109/61 11/04/18 16:00 98.1 67 22 109/61 (77) 100 11/04/18 15:30 62 23 119/68 (85) 100 11/04/18 15:15 93 23 85/53 (64) 100 11/04/18 15:01 81/49 11/04/18 15:00 92 22 88/51 (63) 100 I&O Intake and Output 11/04/18 11/05/18 19:00 07:00 Intake Total 2982.5 ml 1690 ml Output Total 1490 ml 2600 ml Balance 1492.5 ml -910 ml Free Water 200 ml 300 ml IV Total 1937.5 ml 610 ml Tube Feeding 845 ml 780 ml Output Urine Total 860 ml 2050 ml Other 630 ml 550 ml # Bowel Movements 7 Dressing: saturated Wound: clean Cardiovascular: RSR Respiratory: clear Abdomen: soft, non-tender, present bowel sounds, other Extremities: no cyanosis Laboratory Tests Test 11/05/18 04:20 White Blood Count 6.7 K/UL (4.8-10.8) Red Blood Count 4.43 M/UL (4.70-6.10) L Hemoglobin 12.9 G/DL (14.2-18.0) L Hematocrit 40.0 % (42.0-52.0) L Mean Corpuscular Volume 90 FL (80-99) Mean Corpuscular Hemoglobin 29.1 PG (27.0-31.0) Mean Corpuscular Hemoglobin Concent 32.2 G/DL (32.0-36.0) Red Cell Distribution Width 18.4 % (11.6-14.8) H Platelet Count 308 K/UL (150-450) Mean Platelet Volume 5.9 FL (6.5-10.1) L Neutrophils (%) (Auto) 65.7 % (45.0-75.0) Lymphocytes (%) (Auto) 21.6 % (20.0-45.0) Monocytes (%) (Auto) 8.6 % (1.0-10.0) Eosinophils (%) (Auto) 3.2 % (0.0-3.0) H Basophils (%) (Auto) 0.9 % (0.0-2.0) Sodium Level 139 MMOL/L (136-145) Potassium Level 3.5 MMOL/L (3.5-5.1) Chloride Level 105 MMOL/L (98-107) Carbon Dioxide Level 28 MMOL/L (21-32) Anion Gap 7 mmol/L (5-15) Blood Urea Nitrogen 6 mg/dL (7-18) L Creatinine 0.4 MG/DL (0.55-1.30) L Estimat Glomerular Filtration Rate > 60 mL/min (>60) Glucose Level 156 MG/DL (74-106) H Uric Acid 2.0 MG/DL (2.6-7.2) L Calcium Level 8.0 MG/DL (8.5-10.1) L Phosphorus Level 2.0 MG/DL (2.5-4.9) L Magnesium Level 1.6 MG/DL (1.8-2.4) L Total Bilirubin 1.7 MG/DL (0.2-1.0) H Direct Bilirubin 1.0 MG/DL (0.0-0.3) H Aspartate Amino Transf (AST/SGOT) 39 U/L (15-37) H Alanine Aminotransferase (ALT/SGPT) 35 U/L (12-78) Alkaline Phosphatase 472 U/L (46-116) H C-Reactive Protein, Quantitative 7.8 mg/dL (0.00-0.90) H Pro-B-Type Natriuretic Peptide 876 pg/mL (0-125) H Total Protein 6.3 G/DL (6.4-8.2) L Albumin 2.1 G/DL (3.4-5.0) L Globulin 4.2 g/dL Albumin/Globulin Ratio 0.5 (1.0-2.7) L Cortisol AM Sample 8.3 UG/DL Plan Problems: (1) Malfunction of gastrostomy tube Assessment & Plan: This is a 57-year-old male with malfunctioning G-tube in. G -tube cellulitis. I taken care of this patient for a long period of time and trying to help resolve this. This is actually the best it has looked and prior was significantly worse. I anticipated he would stay on TPN while the G-tube site completely closed with plans for a new G-tube placement in the future in a completely different site. Unfortunately seems that a G-tube is been placed into his prior closing site now is developing cellulitis around it again. For now given that its improved and not leaking significantly potentially cellulitis can improve and will continue with localized wound care. Apply zinc oxide around the tube and continue with tube use. Nutritional optimization is keys here. We will follow with recommendations. Thank you for allowing me to participate in patient's care Still leaking around G-tube site but erythema and skin changes much improved. Still has scaling skin with some erythema noted but significant improved as prior. G-tube in stable positioning. Dressings intact. Apply zinc oxide around G-tube site as needed with dressing changes. We will continue to monitor (2) Malfunction of jejunostomy tube (3) Abnormal LFTs Assessment & Plan: Patient with elevated t bili, d bili, alk phos remain elevated CT and US with cholelithiasis ?cbd stone will discuss with GI trend labs thank you Robert Gomez Nov 05, 2018 14:50
--- NOTE | 2018-11-05 15:21 | Internal Med Progress Note ---
Subjective Physician Name Bruno Ko Attending Physician Bruno Ko MD Current Medications Medications (Trade) Dose Ordered Sig/Vicenta Route PRN Reason Start Time Stop Time Status Last Admin Dose Admin Acetaminophen (Tylenol) 650 mg Q4H PRN ORAL fever 11/03/18 12:30 11/27/18 12:29 Acetaminophen (Tylenol) 650 mg Q4H PRN RECTAL Mild Pain (Pain Scale 1-3) 11/03/18 14:45 11/28/18 10:44 Chlorhexidine Gluconate (Caitlyn-Hex 2%) 1 applic DAILY@2000 TOPIC 11/03/18 20:00 11/28/18 19:59 11/04/18 20:26 Dextrose (Dextrose 50%) 25 ml Q30M PRN IV Hypoglycemia 11/03/18 12:30 11/27/18 14:29 Dextrose (Dextrose 50%) 50 ml Q30M PRN IV Hypoglycemia 11/03/18 12:30 11/27/18 14:29 Docusate Sodium (Colace) 100 mg BID GT 11/03/18 18:00 12/03/18 17:59 Gabapentin (Neurontin) 600 mg Q6HR GT 11/03/18 12:00 11/27/18 17:59 11/05/18 11:36 Heparin Sodium (Porcine) (Heparin 5000 units/ml) 5,000 units EVERY 12 HOURS SUBQ 11/03/18 21:00 11/27/18 20:59 11/05/18 08:46 Levetiracetam 100 ml @ 400 mls/hr Q12HR IVPB 11/03/18 21:00 11/30/18 20:59 11/05/18 08:47 Lorazepam (Ativan 2mg/ml 1ml) 1 mg Q4H PRN IV agitation 11/03/18 12:11 11/10/18 12:10 Meropenem 1 gm/ Sodium Chloride 55 ml @ 110 mls/hr Q8HR IVPB 11/03/18 14:00 11/08/18 13:59 11/05/18 14:24 Metoclopramide HCl (Reglan) 10 mg Q6H PRN IVP severe nausea 11/03/18 12:11 12/03/18 12:10 Metoprolol Tartrate (Lopressor) 25 mg Q8HR GT 11/03/18 14:00 12/02/18 21:59 11/05/18 06:03 Midodrine (Pro-Amatine) 10 mg EVERY 8 HOURS ORAL 11/04/18 14:00 12/04/18 13:59 11/05/18 14:24 Mineral Oil (Fleet's Mineral Oil Enema) 133 ml EVERY OTHER DAY RECTAL 11/04/18 09:00 11/30/18 08:59 Morphine Sulfate (Morphine Sulfate) 2 mg Q4H PRN IVP severe Pain (Pain Scale 7-10) 11/03/18 12:12 11/10/18 12:11 Nitroglycerin (Ntg) 0.4 mg Q5M X 3 DOSES PRN SL Prn Chest Pain 11/03/18 12:12 12/03/18 12:11 Norepinephrine Bitartrate 4 mg/ Dextrose 250 ml @ 0 mls/hr Q24H IV 11/03/18 13:00 12/03/18 12:59 11/05/18 08:55 Pantoprazole (Protonix) 40 mg DAILY IV 11/04/18 09:00 11/28/18 08:59 11/05/18 08:45 Polyethylene Glycol (Miralax) 17 gm BEDTIME GT 11/03/18 21:00 12/03/18 20:59 Polyethylene Glycol (Miralax) 17 gm HSPRN PRN GT Constipation 11/03/18 12:12 12/03/18 12:11 Zinc Oxide (Zinc Oxide) 1 applic TIDPRN PRN TOPIC around g tube site 11/03/18 13:00 12/03/18 12:59 Allergies: Coded Allergies: SULFAMETHOXAZOLE (Verified Allergy, Unknown, 10/18/17) TRIMETHOPRIM (Verified Allergy, Unknown, 10/18/17) Subjective awake, responsive, back on Vent now , in ICU Objective Last Vital Signs Date Time Temp Pulse Resp B/P (MAP) Pulse Ox O2 Delivery O2 Flow Rate FiO2 11/05/18 14:30 110 14 103/66 (78) 99 11/05/18 13:50 Mechanical Ventilator 65.0 28 11/05/18 12:00 97.5 Laboratory Tests Test 11/05/18 04:20 White Blood Count 6.7 K/UL (4.8-10.8) Red Blood Count 4.43 M/UL (4.70-6.10) L Hemoglobin 12.9 G/DL (14.2-18.0) L Hematocrit 40.0 % (42.0-52.0) L Mean Corpuscular Volume 90 FL (80-99) Mean Corpuscular Hemoglobin 29.1 PG (27.0-31.0) Mean Corpuscular Hemoglobin Concent 32.2 G/DL (32.0-36.0) Red Cell Distribution Width 18.4 % (11.6-14.8) H Platelet Count 308 K/UL (150-450) Mean Platelet Volume 5.9 FL (6.5-10.1) L Neutrophils (%) (Auto) 65.7 % (45.0-75.0) Lymphocytes (%) (Auto) 21.6 % (20.0-45.0) Monocytes (%) (Auto) 8.6 % (1.0-10.0) Eosinophils (%) (Auto) 3.2 % (0.0-3.0) H Basophils (%) (Auto) 0.9 % (0.0-2.0) Sodium Level 139 MMOL/L (136-145) Potassium Level 3.5 MMOL/L (3.5-5.1) Chloride Level 105 MMOL/L (98-107) Carbon Dioxide Level 28 MMOL/L (21-32) Anion Gap 7 mmol/L (5-15) Blood Urea Nitrogen 6 mg/dL (7-18) L Creatinine 0.4 MG/DL (0.55-1.30) L Estimat Glomerular Filtration Rate > 60 mL/min (>60) Glucose Level 156 MG/DL (74-106) H Uric Acid 2.0 MG/DL (2.6-7.2) L Calcium Level 8.0 MG/DL (8.5-10.1) L Phosphorus Level 2.0 MG/DL (2.5-4.9) L Magnesium Level 1.6 MG/DL (1.8-2.4) L Total Bilirubin 1.7 MG/DL (0.2-1.0) H Direct Bilirubin 1.0 MG/DL (0.0-0.3) H Aspartate Amino Transf (AST/SGOT) 39 U/L (15-37) H Alanine Aminotransferase (ALT/SGPT) 35 U/L (12-78) Alkaline Phosphatase 472 U/L (46-116) H C-Reactive Protein, Quantitative 7.8 mg/dL (0.00-0.90) H Pro-B-Type Natriuretic Peptide 876 pg/mL (0-125) H Total Protein 6.3 G/DL (6.4-8.2) L Albumin 2.1 G/DL (3.4-5.0) L Globulin 4.2 g/dL Albumin/Globulin Ratio 0.5 (1.0-2.7) L Cortisol AM Sample 8.3 UG/DL Microbiology Date/Time Source Procedure Growth Status 11/03/18 12:40 Urine,Clean Catch Urine Culture - Final Yeast Species Complete Intake and Output 11/04/18 11/05/18 19:00 07:00 Intake Total 2982.5 ml 1690 ml Output Total 1490 ml 2600 ml Balance 1492.5 ml -910 ml Free Water 200 ml 300 ml IV Total 1937.5 ml 610 ml Tube Feeding 845 ml 780 ml Output Urine Total 860 ml 2050 ml Other 630 ml 550 ml # Bowel Movements 7 Objective General: No acute distress, awake and responsive, on Vent HEENT: NCAT, sclera anicteric, PERRL, EOMI. Neck: Supple,trach site intact, Lungs: fair inspiratory effort,decrease air at bases, no Wheeze or Rales. Heart: Regular rate and rhythm, normal S1/S2, no murmurs Abdomen: soft, nontender, nondistended. Normoactive bowel sounds. morbid obesity , GJ tube side dressing intact, suprapubic cath intact. Extremities: No Cyanosis , clubbing or edema. Neuro: A&O x 2, Able to move lower extremities slowly, contracted extremities. Skin: warm, no rash. Assessment/Plan Assessment/Plan 1. JG tube malfunction and leaks, s/p replacement. 2. acute on chronic Respiratory failure. 3. Seizure disorder. 4. Chronic obstructive pulmonary disease. 5. Gastroesophageal reflux disease. 6. Neurogenic bladder. 7. Hypothyroidism. 8. Quadriplegia. 9. Tracheostomy in situ. 10.Thrombocytopenia. 11. Septic shock 12. Proteus Mirabilis ESBL bacteremia. Plan: F/U with GI recommendations Monitor labs and cultures. Abx: Meropenem wean off Levophed drip tolerated tube feeding @ 30 cc/hr. Bruno Ko MD Nov 05, 2018 15:21
--- NOTE | 2018-11-05 15:30 | NUR ---
NURSE NOTES: SEEN AND EXAMINED BY DR STEVENSON. PATIENT STILL ON LEVO FOLLOWING HOSPITAL PROTOCOL. TOLERATING VENT SETTINGS. NO SIGNS OF DISTRESS OF THE MOMENT. WILL CONTINUE TO MONITOR.
--- NOTE | 2018-11-05 16:43 | NUR ---
NURSE NOTES: ABG DONE. INFORMED DR DIAS OF THE RESULT. AWAITING FOR RESPONSE. WILL CONTINUE TO MONITOR.
--- NOTE | 2018-11-05 19:19 | NUR ---
HAND-OFF: Report given to Girish Nicholson RN. Noted to be febrile, due meds given.
--- NOTE | 2018-11-05 19:30 | NUR ---
NURSE NOTES: Patient received from Bakari JOSEPH. Patient is awake and alert to purpose, place and self. Patient is trached and non-verbal but can nod and move mouth to make needs known. Patient can track eyes with finger and follow commands to the best of his abilities. Patient is is contracted on his upper and lower extremities. Patient has a Shiley 6 cuffed with ventilator settings as follows: AC 14, 600tv, 28% FiO2 and peep of 5. Patient has newly replaced G-tube running Osmolite at 30ml/hr. with goal fo 65ml/hr once pressors have been discontinued. Patient also has a suprapubic catheter and a condom catheter which bags are hanging below waist. Both catheters are dry, intact and patent. Suprapubic catheter irrigation was done. ERIC PICC line running Levophed at 6mcg and TKO NS at other lumen. Dressing remains dry and intact. BP 84/[address] SpO2 99% RR 14 101.5 F both axillary and orally
--- NOTE | 2018-11-05 19:31 | NUR ---
NURSE NOTES: Patient has temperature of 101.5F HR is 127 [address] Warm to touch Patient was given Tylenol 650mg/via G-tube Cooling measures were initiated. Fan at bedside. Will continue to monitor patients progress.
--- NOTE | 2018-11-05 20:00 | NUR ---
NURSE NOTES: Patient repositioned and given oral care. HR [address] ST. Cooling measures ongoing.
[2018-11-05] MEDS: Miralax 17gm pkt GT SCH (21:00)
[2018-11-05] MEDS: Dyna-Hex 2% Top Sol 2oz TOPIC SCH (21:06)
--- NOTE | 2018-11-05 21:30 | NUR ---
NURSE NOTES: Temperature now 99.9F. Cooling measures ongoing HR is 71 Afib.
--- NOTE | 2018-11-05 22:00 | NUR ---
NURSE NOTES: Repositioned patient and adjusted pillows. Pressors ongoing, cooling measures ongoing
[2018-11-06] VITALS (44 sets, daily range): BP systolic 77–145; BP diastolic 32–89
--- NOTE | 2018-11-06 | NUR ---
NURSE NOTES: Repositioned and given oral care. NAD at this time, pressors slowly titrating down. Temperature now is 99.3F. Cooling measures ongoing,
[2018-11-06] MEDS: Gabapentin 300 MG/6 ML Soln GT SCH ×6 (00:10→23:16)
--- NOTE | 2018-11-06 00:25 | NUR ---
NURSE NOTES: RECEIVED PATIENT FROM OPAL CROWDER. PATIENT ASLEEP STATUS, ON TRACH TO VENT AC 14/TV 600/FIO2 28%/PEEP 5, O2 SATURATION 100% NOTED, ABDOMEN SOFT, LARGE, NON TENDER, G TUBE INTACT, ONGOING OSMOLITE 1.2 AT 30ML/HR, KEPT HOB OVER 30 DEGREES, SUPRAPUBIC CATHETER AND CONDOM CATHETER INTACT AND PATENT, YELLOW URINE OUTED, PICC LINE TO RIGHT UPPER ARM, INTACT AND PATENT, ONGOING LEVOPHED DRIP 2MCG/HR VIA PICC, ON P200 BED AND BED ALARM, MADE LOWER BED POSITION, PROVIDED CALL LIGHT WITHIN REACH, WILL CONTINUE TO MONITOR.
--- NOTE | 2018-11-06 02:10 | NUR ---
NURSE NOTES: REPOSITIONED, ORAL CARE WAS DONE.
--- NOTE | 2018-11-06 04:20 | NUR ---
NURSE NOTES: MORNING CARE WAS DONE, NO BOWEL MOVEMENT STATUS.
[2018-11-06 04:34] LABS: HEMATOCRIT 43.2 % (42.0-52.0); MEAN CORPUSCULAR VOLUME 89 FL (80-99); PLATELET COUNT 335 K/UL (150-450); RED BLOOD COUNT 4.83 M/UL (4.70-6.10); RED CELL DISTRIBUTION WIDTH 18.6 % (11.6-14.8); WHITE BLOOD COUNT 5.1 K/UL (4.8-10.8)
[2018-11-06 05:07] LABS: ALANINE AMINOTRANSFERASE 34 U/L (12-78); ALBUMIN 2.3 G/DL (3.4-5.0); ALBUMIN/GLOBULIN RATIO 0.4 (1.0-2.7); ALKALINE PHOSPHATASE 470 U/L (46-116); ANION GAP 8 mmol/L (5-15); ASPARTATE AMINO TRANSFERASE 34 U/L (15-37); BILIRUBIN,TOTAL 1.5 MG/DL (0.2-1.0); BLOOD UREA NITROGEN 8 mg/dL (7-18); CALCIUM 8.6 MG/DL (8.5-10.1); CARBON DIOXIDE 26 MMOL/L (21-32); CHLORIDE 102 MMOL/L (98-107); CREATININE 0.6 MG/DL (0.55-1.30); POTASSIUM 3.4 MMOL/L (3.5-5.1); SODIUM 136 MMOL/L (136-145)
[2018-11-06] MEDS: Metoprolol 25mg tab GT SCH ×3 (05:38→20:13)
[2018-11-06] MEDS: Midodrine 10mg tab ORAL SCH ×3 (05:39→21:18)
[2018-11-06] MEDS: Meropenem 1 GM in NS 55 ML IVPB SCH ×3 (05:39→21:18)
[2018-11-06 05:43] LABS: BILIRUBIN,DIRECT 0.9 MG/DL (0.0-0.3)
--- NOTE | 2018-11-06 06:10 | NUR ---
NURSE NOTES: ONGOING LEVOPHED 3MCG/MIN VIA PICC LINE, NO ACUTE DISTRESS NOTED AT THIS SHIFT.
--- NOTE | 2018-11-06 07:24 | NUR ---
HAND-OFF: Report given to OPAL HARLEY.
--- NOTE | 2018-11-06 07:30 | NUR ---
NURSE NOTES: Received report from Chintan RN. Patient is A/O X3. nod and move mouth to make needs known. follows commands. Pupils sluggish.BP 106/69, HR 78, RR 14 02SAT 100%. Patient Shiley 6 cuffed, trach to vent, settings:AC 14 VT 600, FI02 28%, PEEP 5. Rhonchi and diminished sounds throughout lobes, secretions minimal. Abdomen round, non tender. G-tube running Osmolite 1.2 at 30ml/hr. Goal 65ml/hr once pressors have been discontinued. Patient has a suprapubic catheter draining yellow urine below bladder. A condom catheter, no drainage. Patient is is contracted on his upper and lower extremities. ERIC PICC line running Levophed at 2mcg pt on sz and contact isolation. will continue to monitor pt.
--- NOTE | 2018-11-06 08:11 | Urology Progress Note ---
Assessment/Plan Status: stable Assessment/Plan: 1. Urinary retention with chronic suprapubic tube. 2. Neurogenic bladder. 3. Hydronephrosis, which appears to be chronic. 4. Nephrolithiasis. 5. Cystitis. 6. Hematuria. 7. Probable colonized urine. 8. Sepsis. monitor clinically keep SP tube, last exchanged 10/24 hand irrigated and do PRN position satisfactory, intermittent leakage from penis abx as ordered consider nuclear renal scan Subjective Allergies: Coded Allergies: SULFAMETHOXAZOLE (Verified Allergy, Unknown, 10/18/17) TRIMETHOPRIM (Verified Allergy, Unknown, 10/18/17) Subjective some more SP tube output, less penile output per nurse Objective Last 24 Hour Vital Signs Date Time Temp Pulse Resp B/P (MAP) Pulse Ox O2 Delivery O2 Flow Rate FiO2 11/06/18 08:00 28 11/06/18 07:00 145/89 11/06/18 07:00 75 14 145/89 (107) 100 11/06/18 06:56 77 14 28 11/06/18 06:30 75 14 124/87 (99) 100 11/06/18 06:00 110/79 11/06/18 06:00 85 14 110/79 (89) 100 11/06/18 05:38 91 103/66 11/06/18 05:30 81 17 103/66 (78) 100 11/06/18 05:26 87 14 28 11/06/18 05:00 89 14 91/65 (74) 97 11/06/18 05:00 91/65 11/06/18 04:30 84 14 108/69 (82) 97 11/06/18 04:00 Mechanical Ventilator 11/06/18 04:00 108/68 11/06/18 04:00 28 11/06/18 04:00 97.6 92 15 108/68 (81) 99 11/06/18 03:49 86 11/06/18 03:38 77/53 11/06/18 03:32 86 14 84/51 (62) 98 11/06/18 03:31 87 14 79/51 (60) 98 11/06/18 03:30 90 14 77/53 (61) 99 11/06/18 03:13 84 14 28 11/06/18 03:00 84 14 94/60 (71) 100 11/06/18 03:00 94/60 11/06/18 02:30 83 14 92/60 (71) 100 11/06/18 02:00 92/57 11/06/18 02:00 85 14 92/57 (69) 99 11/06/18 01:30 84 14 82/57 (65) 99 11/06/18 01:13 89 14 28 11/06/18 01:00 96/66 11/06/18 01:00 91 14 96/66 (76) 100 11/06/18 00:30 86 14 94/61 (72) 100 11/06/18 00:00 89 11/06/18 00:00 28 11/06/18 00:00 77/55 11/06/18 00:00 99.2 92 13 77/55 (62) 99 11/05/18 23:30 92 14 120/74 (89) 100 11/05/18 23:22 83 14 28 11/05/18 23:00 81 14 144/89 (107) 100 11/05/18 23:00 145/70 11/05/18 22:30 81 14 143/93 (110) 100 11/05/18 22:00 139/72 11/05/18 22:00 71 14 139/72 (94) 100 11/05/18 21:30 99.9 67 14 118/65 (82) 100 11/05/18 21:06 118/65 11/05/18 21:06 109 77/56 11/05/18 21:00 112 14 77/56 (63) 100 11/05/18 20:37 114 14 28 11/05/18 20:30 114 14 93/69 (77) 100 11/05/18 20:13 78/53 11/05/18 20:00 101.5 124 14 78/53 (61) 100 11/05/18 20:00 84/63 11/05/18 20:00 122 11/05/18 20:00 28 11/05/18 19:48 101.2 11/05/18 19:30 125 14 84/63 (70) 99 11/05/18 19:00 92/66 11/05/18 19:00 126 15 92/66 (75) 100 11/05/18 18:58 129 14 28 11/05/18 18:30 129 15 93/67 (76) 95 11/05/18 18:00 135 14 93/62 (72) 99 11/05/18 18:00 93/62 11/05/18 17:30 132 14 89/64 (72) 99 11/05/18 17:09 124 14 28 11/05/18 17:00 89/64 11/05/18 17:00 128 14 93/66 (75) 99 11/05/18 16:30 96 14 91/53 (66) 99 11/05/18 16:00 98.0 85 14 91/53 (66) 99 11/05/18 16:00 95 11/05/18 16:00 91/53 11/05/18 16:00 Mechanical Ventilator 11/05/18 15:30 90 14 93/54 (67) 99 11/05/18 15:19 90 14 28 11/05/18 15:00 102/71 11/05/18 15:00 113 13 102/71 (81) 100 11/05/18 14:30 110 14 103/66 (78) 99 11/05/18 14:00 113 14 90/58 (69) 98 11/05/18 14:00 90/58 11/05/18 14:00 118 82/56 11/05/18 13:50 120 27 100 Mechanical Ventilator 65.0 28 11/05/18 13:42 120 27 28 11/05/18 13:30 117 14 109/73 (85) 99 11/05/18 13:14 28 11/05/18 13:00 28 11/05/18 13:00 109 25 99/64 (76) 99 11/05/18 13:00 Mechanical Ventilator 11/05/18 13:00 99/64 11/05/18 12:36 100 Trach Collar 6.0 28 11/05/18 12:30 109 24 91/57 (68) 99 11/05/18 12:00 6.0 28 11/05/18 12:00 108 11/05/18 12:00 94/59 11/05/18 12:00 97.5 99 23 94/59 (71) 100 11/05/18 12:00 Trach Collar 6.0 11/05/18 11:30 108 24 94/61 (72) 98 11/05/18 11:00 107 18 99/65 (76) 100 11/05/18 11:00 99/59 11/05/18 10:30 109 26 89/57 (68) 98 11/05/18 10:15 108 26 89/55 (66) 98 11/05/18 10:00 106 27 98/62 (74) 98 11/05/18 10:00 98/61 11/05/18 09:45 105 26 95/66 (76) 98 11/05/18 09:30 112 23 103/64 (77) 100 11/05/18 09:15 100 23 103/64 (77) 100 11/05/18 09:00 102 24 106/61 (76) 100 11/05/18 09:00 106/61 11/05/18 08:55 103/68 11/05/18 08:45 102 26 113/70 (84) 100 11/05/18 08:30 102 23 83/53 (63) 100 11/05/18 08:15 103 24 87/56 (66) 100 Intake and Output 11/05/18 11/06/18 18:59 06:59 Intake Total 2009.0 ml 869.00 ml Output Total 2250 ml 2305 ml Balance -241.0 ml -1436.00 ml Free Water 150 ml 60 ml IV Total 1409.0 ml 369.00 ml Tube Feeding 450 ml 360 ml Other 80 ml Output Urine Total 2050 ml 2305 ml Other 200 ml # Bowel Movements 2 Microbiology Date/Time Source Procedure Growth Status 10/31/18 13:30 Blood Blood Culture - Final NO GROWTH AFTER 5 DAYS Complete 10/31/18 21:30 Sputum Gram Stain - Final Complete 10/31/18 21:30 Sputum Culture - Final A.baumanii Complx - Mdr Usual Respiratory Nataly Complete 11/03/18 12:40 Urine,Clean Catch Urine Culture - Final Yeast Species Complete 11/01/18 03:00 Abdomen Gram Stain - Final Complete 11/01/18 03:00 Wound Culture - Final A.baumanii Complx - Mdr Wanda Albicans Usual Skin Nataly Complete Current Medications Medications (Trade) Dose Ordered Sig/Vicenta Route PRN Reason Start Time Stop Time Status Last Admin Dose Admin Acetaminophen (Tylenol) 650 mg Q4H PRN ORAL fever 11/03/18 12:30 11/27/18 12:29 11/05/18 19:18 Acetaminophen (Tylenol) 650 mg Q4H PRN RECTAL Mild Pain (Pain Scale 1-3) 11/03/18 14:45 11/28/18 10:44 Chlorhexidine Gluconate (Caitlyn-Hex 2%) 1 applic DAILY@2000 TOPIC 11/03/18 20:00 11/28/18 19:59 11/05/18 21:06 Dextrose (Dextrose 50%) 25 ml Q30M PRN IV Hypoglycemia 11/03/18 12:30 11/27/18 14:29 Dextrose (Dextrose 50%) 50 ml Q30M PRN IV Hypoglycemia 11/03/18 12:30 11/27/18 14:29 Docusate Sodium (Colace) 100 mg BID GT 11/03/18 18:00 12/03/18 17:59 Gabapentin (Neurontin) 600 mg Q6HR GT 11/03/18 12:00 11/27/18 17:59 11/06/18 06:20 Heparin Sodium (Porcine) (Heparin 5000 units/ml) 5,000 units EVERY 12 HOURS SUBQ 11/03/18 21:00 11/27/18 20:59 11/05/18 21:08 Levetiracetam 100 ml @ 400 mls/hr Q12HR IVPB 11/03/18 21:00 11/30/18 20:59 11/05/18 21:06 Lorazepam (Ativan 2mg/ml 1ml) 1 mg Q4H PRN IV agitation 11/03/18 12:11 11/10/18 12:10 Meropenem 1 gm/ Sodium Chloride 55 ml @ 110 mls/hr Q8HR IVPB 11/03/18 14:00 11/08/18 13:59 11/06/18 05:39 Metoclopramide HCl (Reglan) 10 mg Q6H PRN IVP severe nausea 11/03/18 12:11 12/03/18 12:10 Metoprolol Tartrate (Lopressor) 25 mg Q8HR GT 11/03/18 14:00 12/02/18 21:59 11/05/18 06:03 Midodrine (Pro-Amatine) 10 mg EVERY 8 HOURS ORAL 11/04/18 14:00 12/04/18 13:59 11/06/18 05:39 Mineral Oil (Fleet's Mineral Oil Enema) 133 ml EVERY OTHER DAY RECTAL 11/04/18 09:00 11/30/18 08:59 Morphine Sulfate (Morphine Sulfate) 2 mg Q4H PRN IVP severe Pain (Pain Scale 7-10) 11/03/18 12:12 11/10/18 12:11 Nitroglycerin (Ntg) 0.4 mg Q5M X 3 DOSES PRN SL Prn Chest Pain 11/03/18 12:12 12/03/18 12:11 Norepinephrine Bitartrate 4 mg/ Dextrose 250 ml @ 0 mls/hr Q24H IV 11/03/18 13:00 12/03/18 12:59 11/05/18 20:13 Pantoprazole (Protonix) 40 mg DAILY IV 11/04/18 09:00 11/28/18 08:59 11/05/18 08:45 Polyethylene Glycol (Miralax) 17 gm BEDTIME GT 11/03/18 21:00 12/03/18 20:59 Polyethylene Glycol (Miralax) 17 gm HSPRN PRN GT Constipation 11/03/18 12:12 12/03/18 12:11 Zinc Oxide (Zinc Oxide) 1 applic TIDPRN PRN TOPIC around g tube site 11/03/18 13:00 12/03/18 12:59 Laboratory Tests 11/05/18 15:35: Arterial Blood pH 7.477H, Arterial Blood Partial Pressure CO2 34.0L, Arterial Blood Partial Pressure O2 90.6, Arterial Blood HCO3 24.6, Arterial Blood Oxygen Saturation 96.8, Arterial Blood Base Excess 1.5, Kem Test Positive 11/06/18 03:50: White Blood Count 5.1, Red Blood Count 4.83, Hemoglobin 14.0L, Hematocrit 43.2, Mean Corpuscular Volume 89, Mean Corpuscular Hemoglobin 29.0, Mean Corpuscular Hemoglobin Concent 32.5, Red Cell Distribution Width 18.6H, Platelet Count 335, Mean Platelet Volume 5.9L, Neutrophils (%) (Auto) , Lymphocytes (%) (Auto) , Monocytes (%) (Auto) , Eosinophils (%) (Auto) , Basophils (%) (Auto) , Sodium Level 136, Potassium Level 3.4L, Chloride Level 102, Carbon Dioxide Level 26, Anion Gap 8, Blood Urea Nitrogen 8, Creatinine 0.6, Estimat Glomerular Filtration Rate > 60, Glucose Level 252H, Calcium Level 8.6, Total Bilirubin 1.5H, Direct Bilirubin 0.9H, Aspartate Amino Transf (AST/SGOT) 34, Alanine Aminotransferase (ALT/SGPT) 34, Alkaline Phosphatase 470H, Total Protein 7.6, Albumin 2.3L, Globulin 5.3, Albumin/Globulin Ratio 0.4L Height (Feet): 5 Height (Inches): 4.00 Weight (Pounds): 191 Objective exam stable SP tube in place, urine remains blood-tinged Ascencion Palomino MD Nov 06, 2018 08:11
[2018-11-06] MEDS: Docusate 100mg tablet GT SCH ×2 (09:00→17:34)
[2018-11-06] MEDS: Fleet's Mineral Oil Enema RECTAL SCH (09:00)
[2018-11-06] MEDS: levETIRAcetam 500mg/NS100ml 100 ML IVPB SCH ×2 (09:07→20:13)
[2018-11-06] MEDS: Pantoprazole Inj IV SCH (09:07)
[2018-11-06] MEDS ORDERED: Tubing IV Secondary IV ONE (09:08)
[2018-11-06] MEDS ORDERED: NS 275ml ONE (09:08)
[2018-11-06] MEDS: Heparin 5000 units/ml inj SUBQ SCH ×2 (09:12→20:13)
[2018-11-06 09:34] LABS: PHOSPHORUS 1.8 MG/DL (2.5-4.9)
--- NOTE | 2018-11-06 10:28 | Nephrology Progress Note ---
Assessment/Plan Problem List: (1) Hypokalemia (2) Malfunction of gastrostomy tube (3) Malfunction of jejunostomy tube (4) Seizures Assessment Sever hypokalemia Low mag other conditions; 1. JG tube malfunction and leaks. 2. Respiratory failure. 3. Seizure disorder. 4. Chronic obstructive pulmonary disease. 5. Gastroesophageal reflux disease. 6. Neurogenic bladder. 7. Hypothyroidism. 8. Quadriplegia. 9. Tracheostomy in situ. 10.Thrombocytopenia. Plan BP support Vigorous K supplement IV Phos and Mag supplement as needed waiting for GT functionality ! ( Per GI) Monitor lytes and renal parameters per orders Subjective ROS Limited/Unobtainable: No Objective Objective Last 24 Hour Vital Signs Date Time Temp Pulse Resp B/P (MAP) Pulse Ox O2 Delivery O2 Flow Rate FiO2 11/06/18 09:30 82 14 105/69 (81) 99 11/06/18 09:24 82 14 28 11/06/18 09:00 79 14 106/69 (81) 100 11/06/18 08:30 83 14 107/73 (84) 100 11/06/18 08:00 28 11/06/18 08:00 Mechanical Ventilator 11/06/18 08:00 97.0 80 14 130/87 (101) 100 11/06/18 07:00 145/89 11/06/18 07:00 75 14 145/89 (107) 100 11/06/18 06:56 77 14 28 11/06/18 06:30 75 14 124/87 (99) 100 11/06/18 06:00 110/79 11/06/18 06:00 85 14 110/79 (89) 100 11/06/18 05:38 91 103/66 11/06/18 05:30 81 17 103/66 (78) 100 11/06/18 05:26 87 14 28 11/06/18 05:00 89 14 91/65 (74) 97 11/06/18 05:00 91/65 11/06/18 04:30 84 14 108/69 (82) 97 11/06/18 04:00 Mechanical Ventilator 11/06/18 04:00 108/68 11/06/18 04:00 28 11/06/18 04:00 97.6 92 15 108/68 (81) 99 11/06/18 03:49 86 11/06/18 03:38 77/53 11/06/18 03:32 86 14 84/51 (62) 98 11/06/18 03:31 87 14 79/51 (60) 98 11/06/18 03:30 90 14 77/53 (61) 99 11/06/18 03:13 84 14 28 11/06/18 03:00 84 14 94/60 (71) 100 11/06/18 03:00 94/60 11/06/18 02:30 83 14 92/60 (71) 100 11/06/18 02:00 92/57 11/06/18 02:00 85 14 92/57 (69) 99 11/06/18 01:30 84 14 82/57 (65) 99 11/06/18 01:13 89 14 28 11/06/18 01:00 96/66 11/06/18 01:00 91 14 96/66 (76) 100 11/06/18 00:30 86 14 94/61 (72) 100 11/06/18 00:00 89 11/06/18 00:00 28 11/06/18 00:00 77/55 11/06/18 00:00 99.2 92 13 77/55 (62) 99 11/05/18 23:30 92 14 120/74 (89) 100 11/05/18 23:22 83 14 28 11/05/18 23:00 81 14 144/89 (107) 100 11/05/18 23:00 145/70 11/05/18 22:30 81 14 143/93 (110) 100 11/05/18 22:00 139/72 11/05/18 22:00 71 14 139/72 (94) 100 11/05/18 21:30 99.9 67 14 118/65 (82) 100 11/05/18 21:06 118/65 11/05/18 21:06 109 77/56 11/05/18 21:00 112 14 77/56 (63) 100 11/05/18 20:37 114 14 28 11/05/18 20:30 114 14 93/69 (77) 100 11/05/18 20:13 78/53 11/05/18 20:00 101.5 124 14 78/53 (61) 100 11/05/18 20:00 84/63 11/05/18 20:00 122 11/05/18 20:00 28 11/05/18 19:48 101.2 11/05/18 19:30 125 14 84/63 (70) 99 11/05/18 19:00 92/66 11/05/18 19:00 126 15 92/66 (75) 100 11/05/18 18:58 129 14 28 11/05/18 18:30 129 15 93/67 (76) 95 11/05/18 18:00 135 14 93/62 (72) 99 11/05/18 18:00 93/62 11/05/18 17:30 132 14 89/64 (72) 99 11/05/18 17:09 124 14 28 11/05/18 17:00 89/64 11/05/18 17:00 128 14 93/66 (75) 99 11/05/18 16:30 96 14 91/53 (66) 99 11/05/18 16:00 98.0 85 14 91/53 (66) 99 11/05/18 16:00 95 11/05/18 16:00 91/53 11/05/18 16:00 Mechanical Ventilator 11/05/18 15:30 90 14 93/54 (67) 99 11/05/18 15:19 90 14 28 11/05/18 15:00 102/71 11/05/18 15:00 113 13 102/71 (81) 100 11/05/18 14:30 110 14 103/66 (78) 99 11/05/18 14:00 113 14 90/58 (69) 98 11/05/18 14:00 90/58 11/05/18 14:00 118 82/56 11/05/18 13:50 120 27 100 Mechanical Ventilator 65.0 28 11/05/18 13:42 120 27 28 11/05/18 13:30 117 14 109/73 (85) 99 11/05/18 13:14 28 11/05/18 13:00 28 11/05/18 13:00 109 25 99/64 (76) 99 11/05/18 13:00 Mechanical Ventilator 11/05/18 13:00 99/64 11/05/18 12:36 100 Trach Collar 6.0 28 11/05/18 12:30 109 24 91/57 (68) 99 11/05/18 12:00 6.0 28 11/05/18 12:00 108 11/05/18 12:00 94/59 11/05/18 12:00 97.5 99 23 94/59 (71) 100 11/05/18 12:00 Trach Collar 6.0 11/05/18 11:30 108 24 94/61 (72) 98 11/05/18 11:00 107 18 99/65 (76) 100 11/05/18 11:00 99/59 11/05/18 10:30 109 26 89/57 (68) 98 Intake and Output 11/05/18 11/06/18 18:59 06:59 Intake Total 2009.0 ml 869.00 ml Output Total 2250 ml 2305 ml Balance -241.0 ml -1436.00 ml Free Water 150 ml 60 ml IV Total 1409.0 ml 369.00 ml Tube Feeding 450 ml 360 ml Other 80 ml Output Urine Total 2050 ml 2305 ml Other 200 ml # Bowel Movements 2 Laboratory Tests 11/05/18 15:35: Arterial Blood pH 7.477H, Arterial Blood Partial Pressure CO2 34.0L, Arterial Blood Partial Pressure O2 90.6, Arterial Blood HCO3 24.6, Arterial Blood Oxygen Saturation 96.8, Arterial Blood Base Excess 1.5, Kem Test Positive 11/06/18 03:50: White Blood Count 5.1, Red Blood Count 4.83, Hemoglobin 14.0L, Hematocrit 43.2, Mean Corpuscular Volume 89, Mean Corpuscular Hemoglobin 29.0, Mean Corpuscular Hemoglobin Concent 32.5, Red Cell Distribution Width 18.6H, Platelet Count 335, Mean Platelet Volume 5.9L, Neutrophils (%) (Auto) , Lymphocytes (%) (Auto) , Monocytes (%) (Auto) , Eosinophils (%) (Auto) , Basophils (%) (Auto) , Sodium Level 136, Potassium Level 3.4L, Chloride Level 102, Carbon Dioxide Level 26, Anion Gap 8, Blood Urea Nitrogen 8, Creatinine 0.6, Estimat Glomerular Filtration Rate > 60, Glucose Level 252H, Calcium Level 8.6, Phosphorus Level 1.8L, Magnesium Level 2.0, Total Bilirubin 1.5H, Direct Bilirubin 0.9H, Aspartate Amino Transf (AST/SGOT) 34, Alanine Aminotransferase (ALT/SGPT) 34, Alkaline Phosphatase 470H, Total Protein 7.6, Albumin 2.3L, Globulin 5.3, Albumin/Globulin Ratio 0.4L Height (Feet): 5 Height (Inches): 4.00 Weight (Pounds): 191 General Appearance: no apparent distress EENT: other - trach- O2 tube Cardiovascular: normal rate Respiratory/Chest: decreased breath sounds Abdomen: soft Sudhakar Silverman MD Nov 06, 2018 10:28
--- NOTE | 2018-11-06 11:30 | GI Progress Note ---
Assessment/Plan Problems: (1) Malfunction of jejunostomy tube ICD Codes: K94.13 - Enterostomy malfunction SNOMED: 025413951, 021277969 (2) Hypokalemia ICD Codes: E87.6 - Hypokalemia SNOMED: 98144862 Status: unchanged Status Narrative Discussed with Dr. Lehman. Assessment/Plan CT AP reviewed Thickening of the underdistended urinary bladder is concerning for cystitis. Consider correlation with urinalysis. Moderate bilateral hydroureteronephrosis. Moderate stool in the rectosigmoid colon is suggestive of constipation. Morphologic features of cirrhosis. Cholelithiasis. s/p EGD with GT replacement GTFs per RD GT site care BID/prn Monitor H&H, PRN transfusions turn q2 hours PPI Electrolyte correction bowel regimen follow labs The patient was seen and examined at bedside and all new and available data was reviewed in the patients chart. I agree with the above findings, impression and plan. (Patient seen earlier today. Signature stamp does not reflect patient encounter time.). - Kvng Lehman MD Subjective Subjective limited Objective Last 24 Hour Vital Signs Date Time Temp Pulse Resp B/P (MAP) Pulse Ox O2 Delivery O2 Flow Rate FiO2 11/06/18 11:01 84 15 28 11/06/18 11:00 83 14 123/83 (96) 100 11/06/18 11:00 86 14 125/79 (94) 100 11/06/18 10:30 83 14 125/79 (94) 100 11/06/18 10:00 81 14 122/73 (89) 99 11/06/18 09:30 82 14 105/69 (81) 99 11/06/18 09:24 82 14 28 11/06/18 09:00 79 14 106/69 (81) 100 11/06/18 08:30 83 14 107/73 (84) 100 11/06/18 08:00 28 11/06/18 08:00 Mechanical Ventilator 11/06/18 08:00 83 11/06/18 08:00 97.0 80 14 130/87 (101) 100 11/06/18 07:00 145/89 11/06/18 07:00 75 14 145/89 (107) 100 11/06/18 06:56 77 14 28 11/06/18 06:30 75 14 124/87 (99) 100 11/06/18 06:00 110/79 11/06/18 06:00 85 14 110/79 (89) 100 11/06/18 05:38 91 103/66 11/06/18 05:30 81 17 103/66 (78) 100 11/06/18 05:26 87 14 28 11/06/18 05:00 89 14 91/65 (74) 97 11/06/18 05:00 91/65 11/06/18 04:30 84 14 108/69 (82) 97 11/06/18 04:00 Mechanical Ventilator 11/06/18 04:00 108/68 11/06/18 04:00 28 11/06/18 04:00 97.6 92 15 108/68 (81) 99 11/06/18 03:49 86 11/06/18 03:38 77/53 11/06/18 03:32 86 14 84/51 (62) 98 11/06/18 03:31 87 14 79/51 (60) 98 11/06/18 03:30 90 14 77/53 (61) 99 11/06/18 03:13 84 14 28 11/06/18 03:00 84 14 94/60 (71) 100 11/06/18 03:00 94/60 11/06/18 02:30 83 14 92/60 (71) 100 11/06/18 02:00 92/57 11/06/18 02:00 85 14 92/57 (69) 99 11/06/18 01:30 84 14 82/57 (65) 99 11/06/18 01:13 89 14 28 11/06/18 01:00 96/66 11/06/18 01:00 91 14 96/66 (76) 100 11/06/18 00:30 86 14 94/61 (72) 100 11/06/18 00:00 89 11/06/18 00:00 28 11/06/18 00:00 77/55 11/06/18 00:00 99.2 92 13 77/55 (62) 99 11/05/18 23:30 92 14 120/74 (89) 100 11/05/18 23:22 83 14 28 11/05/18 23:00 81 14 144/89 (107) 100 11/05/18 23:00 145/70 11/05/18 22:30 81 14 143/93 (110) 100 11/05/18 22:00 139/72 11/05/18 22:00 71 14 139/72 (94) 100 11/05/18 21:30 99.9 67 14 118/65 (82) 100 11/05/18 21:06 118/65 11/05/18 21:06 109 77/56 11/05/18 21:00 112 14 77/56 (63) 100 11/05/18 20:37 114 14 28 11/05/18 20:30 114 14 93/69 (77) 100 11/05/18 20:13 78/53 11/05/18 20:00 101.5 124 14 78/53 (61) 100 11/05/18 20:00 84/63 11/05/18 20:00 122 11/05/18 20:00 28 11/05/18 19:48 101.2 11/05/18 19:30 125 14 84/63 (70) 99 11/05/18 19:00 92/66 11/05/18 19:00 126 15 92/66 (75) 100 11/05/18 18:58 129 14 28 11/05/18 18:30 129 15 93/67 (76) 95 11/05/18 18:00 135 14 93/62 (72) 99 11/05/18 18:00 93/62 11/05/18 17:30 132 14 89/64 (72) 99 11/05/18 17:09 124 14 28 11/05/18 17:00 89/64 11/05/18 17:00 128 14 93/66 (75) 99 11/05/18 16:30 96 14 91/53 (66) 99 11/05/18 16:00 98.0 85 14 91/53 (66) 99 11/05/18 16:00 95 11/05/18 16:00 91/53 11/05/18 16:00 Mechanical Ventilator 11/05/18 15:30 90 14 93/54 (67) 99 11/05/18 15:19 90 14 28 11/05/18 15:00 102/71 11/05/18 15:00 113 13 102/71 (81) 100 11/05/18 14:30 110 14 103/66 (78) 99 11/05/18 14:00 113 14 90/58 (69) 98 11/05/18 14:00 90/58 11/05/18 14:00 118 82/56 11/05/18 13:50 120 27 100 Mechanical Ventilator 65.0 28 11/05/18 13:42 120 27 28 11/05/18 13:30 117 14 109/73 (85) 99 11/05/18 13:14 28 11/05/18 13:00 28 11/05/18 13:00 109 25 99/64 (76) 99 11/05/18 13:00 Mechanical Ventilator 11/05/18 13:00 99/64 11/05/18 12:36 100 Trach Collar 6.0 28 11/05/18 12:30 109 24 91/57 (68) 99 11/05/18 12:00 6.0 28 11/05/18 12:00 108 11/05/18 12:00 94/59 11/05/18 12:00 97.5 99 23 94/59 (71) 100 11/05/18 12:00 Trach Collar 6.0 11/05/18 11:30 108 24 94/61 (72) 98 Intake and Output 11/05/18 11/06/18 18:59 06:59 Intake Total 2009.0 ml 869.00 ml Output Total 2250 ml 2305 ml Balance -241.0 ml -1436.00 ml Free Water 150 ml 60 ml IV Total 1409.0 ml 369.00 ml Tube Feeding 450 ml 360 ml Other 80 ml Output Urine Total 2050 ml 2305 ml Other 200 ml # Bowel Movements 2 Laboratory Tests Test 11/05/18 15:35 11/06/18 03:50 Arterial Blood pH 7.477 (7.350-7.450) Arterial Blood Partial Pressure CO2 34.0 mmHg (35.0-45.0) L Arterial Blood Partial Pressure O2 90.6 mmHg (75.0-100.0) Arterial Blood HCO3 24.6 mmol/L (22.0-26.0) Arterial Blood Oxygen Saturation 96.8 % (95-100) Arterial Blood Base Excess 1.5 (-2-2) Kem Test Positive White Blood Count 5.1 K/UL (4.8-10.8) Red Blood Count 4.83 M/UL (4.70-6.10) Hemoglobin 14.0 G/DL (14.2-18.0) L Hematocrit 43.2 % (42.0-52.0) Mean Corpuscular Volume 89 FL (80-99) Mean Corpuscular Hemoglobin 29.0 PG (27.0-31.0) Mean Corpuscular Hemoglobin Concent 32.5 G/DL (32.0-36.0) Red Cell Distribution Width 18.6 % (11.6-14.8) H Platelet Count 335 K/UL (150-450) Mean Platelet Volume 5.9 FL (6.5-10.1) L Neutrophils (%) (Auto) % (45.0-75.0) Lymphocytes (%) (Auto) % (20.0-45.0) Monocytes (%) (Auto) % (1.0-10.0) Eosinophils (%) (Auto) % (0.0-3.0) Basophils (%) (Auto) % (0.0-2.0) Sodium Level 136 MMOL/L (136-145) Potassium Level 3.4 MMOL/L (3.5-5.1) L Chloride Level 102 MMOL/L (98-107) Carbon Dioxide Level 26 MMOL/L (21-32) Anion Gap 8 mmol/L (5-15) Blood Urea Nitrogen 8 mg/dL (7-18) Creatinine 0.6 MG/DL (0.55-1.30) Estimat Glomerular Filtration Rate > 60 mL/min (>60) Glucose Level 252 MG/DL (74-106) H Calcium Level 8.6 MG/DL (8.5-10.1) Phosphorus Level 1.8 MG/DL (2.5-4.9) L Magnesium Level 2.0 MG/DL (1.8-2.4) Total Bilirubin 1.5 MG/DL (0.2-1.0) H Direct Bilirubin 0.9 MG/DL (0.0-0.3) H Aspartate Amino Transf (AST/SGOT) 34 U/L (15-37) Alanine Aminotransferase (ALT/SGPT) 34 U/L (12-78) Alkaline Phosphatase 470 U/L (46-116) H Total Protein 7.6 G/DL (6.4-8.2) Albumin 2.3 G/DL (3.4-5.0) L Globulin 5.3 g/dL Albumin/Globulin Ratio 0.4 (1.0-2.7) L Height (Feet): 5 Height (Inches): 4.00 Weight (Pounds): 191 General Appearance: WD/WN, no apparent distress, alert Cardiovascular: normal rate Respiratory/Chest: normal breath sounds, no respiratory distress Abdominal Exam: normal bowel sounds, non tender, soft Extremities: non-tender Daisy Bernstein NP Nov 06, 2018 11:30
[2018-11-06] MEDS ORDERED: Sodium Phosphate 30 MM in NS 275 ML IVPB SCH (12:00)
--- NOTE | 2018-11-06 12:00 | NUR ---
NURSE NOTES: Patient is A/O X3. nod and move mouth to make needs known. BP 113/75, HR 87, RR 14, 02 SAT 100%. Patient Shiley 6 cuffed, trach to vent, settings:AC 14 VT 600, FI02 28%, PEEP 5. secretions minimal. Abdomen round, non tender. G-tube running Osmolite 1.2 at 30ml/hr. No residuals. Patient has a suprapubic catheter draining yellow urine below bladder. Patient is is contracted on his upper and lower extremities. ERIC PICC line running Levophed at 2mcg. Pt on sz and contact isolation. will continue to monitor pt.
--- NOTE | 2018-11-06 13:04 | Cardiology Progress Note ---
Assessment/Plan Status: stable Assessment/Plan Assessment/Plan Assessment/Plan 1. Tachycardia On metoprolol 25 mg GT every 8 hours Continue telemetry 2. Severe hypokalemia. Resolved 3. Dysphagia, status post GJ-tube malfunction. S/P new GJ-tube placement 11/02/18 4. History of respiratory failure, currently off the ventilator, tracheostomy in place 5. Seizure disorder. stable 6. COPD. Continue pulmonary toilet, stable on trach collar 7. Gastroesophageal reflux disease. PPI BID 8. Neurogenic bladder status post suprapubic catheter. Irrigated per urology 9. Hypothyroidism. Continue replacement 10. Quadriplegia. PT/OT 11. Transient hypotension Resolved Subjective Cardiovascular: Reports: no symptoms Respiratory: Reports: no symptoms Gastrointestinal/Abdominal: Reports: no symptoms Genitourinary: Reports: no symptoms Subjective Coverage for Rinku Remains in ICU on trach collar, tolerated feeds, suprapubic cath irrigated, remains tachycardic, BP stable on leveophed Objective Last 24 Hour Vital Signs Date Time Temp Pulse Resp B/P (MAP) Pulse Ox O2 Delivery O2 Flow Rate FiO2 11/06/18 12:00 85 11/06/18 12:00 98.1 87 15 116/76 (89) 100 11/06/18 12:00 28 11/06/18 12:00 Mechanical Ventilator 11/06/18 11:30 85 14 119/77 (91) 100 11/06/18 11:01 84 15 28 11/06/18 11:00 83 14 123/83 (96) 100 11/06/18 11:00 86 14 125/79 (94) 100 11/06/18 10:30 83 14 125/79 (94) 100 11/06/18 10:00 81 14 122/73 (89) 99 11/06/18 09:30 82 14 105/69 (81) 99 11/06/18 09:24 82 14 28 11/06/18 09:00 79 14 106/69 (81) 100 11/06/18 08:30 83 14 107/73 (84) 100 11/06/18 08:00 28 11/06/18 08:00 Mechanical Ventilator 11/06/18 08:00 83 11/06/18 08:00 97.0 80 14 130/87 (101) 100 11/06/18 07:00 145/89 11/06/18 07:00 75 14 145/89 (107) 100 11/06/18 06:56 77 14 28 11/06/18 06:30 75 14 124/87 (99) 100 11/06/18 06:00 110/79 11/06/18 06:00 85 14 110/79 (89) 100 11/06/18 05:38 91 103/66 11/06/18 05:30 81 17 103/66 (78) 100 11/06/18 05:26 87 14 28 11/06/18 05:00 89 14 91/65 (74) 97 11/06/18 05:00 91/65 11/06/18 04:30 84 14 108/69 (82) 97 11/06/18 04:00 Mechanical Ventilator 11/06/18 04:00 108/68 11/06/18 04:00 28 11/06/18 04:00 97.6 92 15 108/68 (81) 99 11/06/18 03:49 86 11/06/18 03:38 77/53 11/06/18 03:32 86 14 84/51 (62) 98 11/06/18 03:31 87 14 79/51 (60) 98 11/06/18 03:30 90 14 77/53 (61) 99 11/06/18 03:13 84 14 28 11/06/18 03:00 84 14 94/60 (71) 100 11/06/18 03:00 94/60 11/06/18 02:30 83 14 92/60 (71) 100 11/06/18 02:00 92/57 11/06/18 02:00 85 14 92/57 (69) 99 11/06/18 01:30 84 14 82/57 (65) 99 11/06/18 01:13 89 14 28 11/06/18 01:00 96/66 11/06/18 01:00 91 14 96/66 (76) 100 11/06/18 00:30 86 14 94/61 (72) 100 11/06/18 00:00 89 11/06/18 00:00 28 11/06/18 00:00 77/55 11/06/18 00:00 99.2 92 13 77/55 (62) 99 11/05/18 23:30 92 14 120/74 (89) 100 11/05/18 23:22 83 14 28 11/05/18 23:00 81 14 144/89 (107) 100 11/05/18 23:00 145/70 11/05/18 22:30 81 14 143/93 (110) 100 11/05/18 22:00 139/72 11/05/18 22:00 71 14 139/72 (94) 100 11/05/18 21:30 99.9 67 14 118/65 (82) 100 11/05/18 21:06 118/65 11/05/18 21:06 109 77/56 11/05/18 21:00 112 14 77/56 (63) 100 11/05/18 20:37 114 14 28 11/05/18 20:30 114 14 93/69 (77) 100 11/05/18 20:13 78/53 11/05/18 20:00 101.5 124 14 78/53 (61) 100 11/05/18 20:00 84/63 11/05/18 20:00 122 11/05/18 20:00 28 11/05/18 19:48 101.2 11/05/18 19:30 125 14 84/63 (70) 99 11/05/18 19:00 92/66 11/05/18 19:00 126 15 92/66 (75) 100 11/05/18 18:58 129 14 28 11/05/18 18:30 129 15 93/67 (76) 95 11/05/18 18:00 135 14 93/62 (72) 99 11/05/18 18:00 93/62 11/05/18 17:30 132 14 89/64 (72) 99 11/05/18 17:09 124 14 28 11/05/18 17:00 89/64 11/05/18 17:00 128 14 93/66 (75) 99 11/05/18 16:30 96 14 91/53 (66) 99 11/05/18 16:00 98.0 85 14 91/53 (66) 99 11/05/18 16:00 95 11/05/18 16:00 91/53 11/05/18 16:00 Mechanical Ventilator 11/05/18 15:30 90 14 93/54 (67) 99 11/05/18 15:19 90 14 28 11/05/18 15:00 102/71 11/05/18 15:00 113 13 102/71 (81) 100 11/05/18 14:30 110 14 103/66 (78) 99 11/05/18 14:00 113 14 90/58 (69) 98 11/05/18 14:00 90/58 11/05/18 14:00 118 82/56 11/05/18 13:50 120 27 100 Mechanical Ventilator 65.0 28 11/05/18 13:42 120 27 28 11/05/18 13:30 117 14 109/73 (85) 99 11/05/18 13:14 28 General Appearance: no apparent distress, lethargic, on vent EENT: PERRL/EOMI, normal ENT inspection, TMs normal, pharynx normal Neck: non-tender, normal alignment, supple, normal inspection, no JVD Rhythm: NSR Cardiovascular: normal peripheral pulses, normal rate, regular rhythm Respiratory/Chest: accessory muscle use Abdomen: non tender, decreased bowel sounds Extremities: normal range of motion, non-tender, normal inspection, no calf tenderness, no swelling Neurologic: analysis consultant II-XII grossly normal, motor weakness, sensory deficit Intake and Output 11/05/18 11/06/18 19:00 07:00 Intake Total 1871.5 ml 857.75 ml Output Total 2300 ml 2335 ml Balance -428.5 ml -1477.25 ml Free Water 150 ml 60 ml IV Total 1306.5 ml 357.75 ml Tube Feeding 415 ml 360 ml Other 80 ml Output Urine Total 2100 ml 2335 ml Other 200 ml # Bowel Movements 2 Laboratory Tests Test 11/05/18 15:35 11/06/18 03:50 Arterial Blood pH 7.477 (7.350-7.450) Arterial Blood Partial Pressure CO2 34.0 mmHg (35.0-45.0) L Arterial Blood Partial Pressure O2 90.6 mmHg (75.0-100.0) Arterial Blood HCO3 24.6 mmol/L (22.0-26.0) Arterial Blood Oxygen Saturation 96.8 % (95-100) Arterial Blood Base Excess 1.5 (-2-2) Kem Test Positive White Blood Count 5.1 K/UL (4.8-10.8) Red Blood Count 4.83 M/UL (4.70-6.10) Hemoglobin 14.0 G/DL (14.2-18.0) L Hematocrit 43.2 % (42.0-52.0) Mean Corpuscular Volume 89 FL (80-99) Mean Corpuscular Hemoglobin 29.0 PG (27.0-31.0) Mean Corpuscular Hemoglobin Concent 32.5 G/DL (32.0-36.0) Red Cell Distribution Width 18.6 % (11.6-14.8) H Platelet Count 335 K/UL (150-450) Mean Platelet Volume 5.9 FL (6.5-10.1) L Neutrophils (%) (Auto) % (45.0-75.0) Lymphocytes (%) (Auto) % (20.0-45.0) Monocytes (%) (Auto) % (1.0-10.0) Eosinophils (%) (Auto) % (0.0-3.0) Basophils (%) (Auto) % (0.0-2.0) Sodium Level 136 MMOL/L (136-145) Potassium Level 3.4 MMOL/L (3.5-5.1) L Chloride Level 102 MMOL/L (98-107) Carbon Dioxide Level 26 MMOL/L (21-32) Anion Gap 8 mmol/L (5-15) Blood Urea Nitrogen 8 mg/dL (7-18) Creatinine 0.6 MG/DL (0.55-1.30) Estimat Glomerular Filtration Rate > 60 mL/min (>60) Glucose Level 252 MG/DL (74-106) H Calcium Level 8.6 MG/DL (8.5-10.1) Phosphorus Level 1.8 MG/DL (2.5-4.9) L Magnesium Level 2.0 MG/DL (1.8-2.4) Total Bilirubin 1.5 MG/DL (0.2-1.0) H Direct Bilirubin 0.9 MG/DL (0.0-0.3) H Aspartate Amino Transf (AST/SGOT) 34 U/L (15-37) Alanine Aminotransferase (ALT/SGPT) 34 U/L (12-78) Alkaline Phosphatase 470 U/L (46-116) H Total Protein 7.6 G/DL (6.4-8.2) Albumin 2.3 G/DL (3.4-5.0) L Globulin 5.3 g/dL Albumin/Globulin Ratio 0.4 (1.0-2.7) L Nikita Reddy MD Nov 06, 2018 13:04
--- NOTE | 2018-11-06 13:30 | NUR ---
NURSE NOTES: MD Beltre here to see pt. Received order to change VT to 500, weaning in AM cpap and PS8, get ABG post 30 min.
--- NOTE | 2018-11-06 13:36 | Surgery Progress Note ---
Surgery Progress Note Subjective Additional Comments no acute events comfortable stable. exam unchanged. Objective Last 24 Hour Vital Signs Date Time Temp Pulse Resp B/P (MAP) Pulse Ox O2 Delivery O2 Flow Rate FiO2 11/06/18 13:19 85 14 28 11/06/18 13:00 83 14 127/82 (97) 100 11/06/18 12:00 85 11/06/18 12:00 98.1 87 15 116/76 (89) 100 11/06/18 12:00 28 11/06/18 12:00 Mechanical Ventilator 11/06/18 11:30 85 14 119/77 (91) 100 11/06/18 11:01 84 15 28 11/06/18 11:00 83 14 123/83 (96) 100 11/06/18 11:00 86 14 125/79 (94) 100 11/06/18 10:30 83 14 125/79 (94) 100 11/06/18 10:00 81 14 122/73 (89) 99 11/06/18 09:30 82 14 105/69 (81) 99 11/06/18 09:24 82 14 28 11/06/18 09:00 79 14 106/69 (81) 100 11/06/18 08:30 83 14 107/73 (84) 100 11/06/18 08:00 28 11/06/18 08:00 Mechanical Ventilator 11/06/18 08:00 83 11/06/18 08:00 97.0 80 14 130/87 (101) 100 11/06/18 07:00 145/89 11/06/18 07:00 75 14 145/89 (107) 100 11/06/18 06:56 77 14 28 11/06/18 06:30 75 14 124/87 (99) 100 11/06/18 06:00 110/79 11/06/18 06:00 85 14 110/79 (89) 100 11/06/18 05:38 91 103/66 11/06/18 05:30 81 17 103/66 (78) 100 11/06/18 05:26 87 14 28 11/06/18 05:00 89 14 91/65 (74) 97 11/06/18 05:00 91/65 11/06/18 04:30 84 14 108/69 (82) 97 11/06/18 04:00 Mechanical Ventilator 11/06/18 04:00 108/68 11/06/18 04:00 28 11/06/18 04:00 97.6 92 15 108/68 (81) 99 11/06/18 03:49 86 11/06/18 03:38 77/53 11/06/18 03:32 86 14 84/51 (62) 98 11/06/18 03:31 87 14 79/51 (60) 98 11/06/18 03:30 90 14 77/53 (61) 99 11/06/18 03:13 84 14 28 11/06/18 03:00 84 14 94/60 (71) 100 11/06/18 03:00 94/60 11/06/18 02:30 83 14 92/60 (71) 100 11/06/18 02:00 92/57 11/06/18 02:00 85 14 92/57 (69) 99 11/06/18 01:30 84 14 82/57 (65) 99 11/06/18 01:13 89 14 28 11/06/18 01:00 96/66 11/06/18 01:00 91 14 96/66 (76) 100 11/06/18 00:30 86 14 94/61 (72) 100 11/06/18 00:00 89 11/06/18 00:00 28 11/06/18 00:00 77/55 11/06/18 00:00 99.2 92 13 77/55 (62) 99 11/05/18 23:30 92 14 120/74 (89) 100 11/05/18 23:22 83 14 28 11/05/18 23:00 81 14 144/89 (107) 100 11/05/18 23:00 145/70 11/05/18 22:30 81 14 143/93 (110) 100 11/05/18 22:00 139/72 11/05/18 22:00 71 14 139/72 (94) 100 11/05/18 21:30 99.9 67 14 118/65 (82) 100 11/05/18 21:06 118/65 11/05/18 21:06 109 77/56 11/05/18 21:00 112 14 77/56 (63) 100 11/05/18 20:37 114 14 28 11/05/18 20:30 114 14 93/69 (77) 100 11/05/18 20:13 78/53 11/05/18 20:00 101.5 124 14 78/53 (61) 100 11/05/18 20:00 84/63 11/05/18 20:00 122 11/05/18 20:00 28 11/05/18 19:48 101.2 11/05/18 19:30 125 14 84/63 (70) 99 11/05/18 19:00 92/66 11/05/18 19:00 126 15 92/66 (75) 100 11/05/18 18:58 129 14 28 11/05/18 18:30 129 15 93/67 (76) 95 11/05/18 18:00 135 14 93/62 (72) 99 11/05/18 18:00 93/62 11/05/18 17:30 132 14 89/64 (72) 99 11/05/18 17:09 124 14 28 11/05/18 17:00 89/64 11/05/18 17:00 128 14 93/66 (75) 99 11/05/18 16:30 96 14 91/53 (66) 99 11/05/18 16:00 98.0 85 14 91/53 (66) 99 11/05/18 16:00 95 11/05/18 16:00 91/53 11/05/18 16:00 Mechanical Ventilator 11/05/18 15:30 90 14 93/54 (67) 99 11/05/18 15:19 90 14 28 11/05/18 15:00 102/71 11/05/18 15:00 113 13 102/71 (81) 100 11/05/18 14:30 110 14 103/66 (78) 99 11/05/18 14:00 113 14 90/58 (69) 98 11/05/18 14:00 90/58 11/05/18 14:00 118 82/56 11/05/18 13:50 120 27 100 Mechanical Ventilator 65.0 28 11/05/18 13:42 120 27 28 I&O Intake and Output 11/05/18 11/06/18 19:00 07:00 Intake Total 1871.5 ml 857.75 ml Output Total 2300 ml 2335 ml Balance -428.5 ml -1477.25 ml Free Water 150 ml 60 ml IV Total 1306.5 ml 357.75 ml Tube Feeding 415 ml 360 ml Other 80 ml Output Urine Total 2100 ml 2335 ml Other 200 ml # Bowel Movements 2 Laboratory Tests Test 11/05/18 15:35 11/06/18 03:50 Arterial Blood pH 7.477 (7.350-7.450) Arterial Blood Partial Pressure CO2 34.0 mmHg (35.0-45.0) L Arterial Blood Partial Pressure O2 90.6 mmHg (75.0-100.0) Arterial Blood HCO3 24.6 mmol/L (22.0-26.0) Arterial Blood Oxygen Saturation 96.8 % (95-100) Arterial Blood Base Excess 1.5 (-2-2) Kem Test Positive White Blood Count 5.1 K/UL (4.8-10.8) Red Blood Count 4.83 M/UL (4.70-6.10) Hemoglobin 14.0 G/DL (14.2-18.0) L Hematocrit 43.2 % (42.0-52.0) Mean Corpuscular Volume 89 FL (80-99) Mean Corpuscular Hemoglobin 29.0 PG (27.0-31.0) Mean Corpuscular Hemoglobin Concent 32.5 G/DL (32.0-36.0) Red Cell Distribution Width 18.6 % (11.6-14.8) H Platelet Count 335 K/UL (150-450) Mean Platelet Volume 5.9 FL (6.5-10.1) L Neutrophils (%) (Auto) % (45.0-75.0) Lymphocytes (%) (Auto) % (20.0-45.0) Monocytes (%) (Auto) % (1.0-10.0) Eosinophils (%) (Auto) % (0.0-3.0) Basophils (%) (Auto) % (0.0-2.0) Sodium Level 136 MMOL/L (136-145) Potassium Level 3.4 MMOL/L (3.5-5.1) L Chloride Level 102 MMOL/L (98-107) Carbon Dioxide Level 26 MMOL/L (21-32) Anion Gap 8 mmol/L (5-15) Blood Urea Nitrogen 8 mg/dL (7-18) Creatinine 0.6 MG/DL (0.55-1.30) Estimat Glomerular Filtration Rate > 60 mL/min (>60) Glucose Level 252 MG/DL (74-106) H Calcium Level 8.6 MG/DL (8.5-10.1) Phosphorus Level 1.8 MG/DL (2.5-4.9) L Magnesium Level 2.0 MG/DL (1.8-2.4) Total Bilirubin 1.5 MG/DL (0.2-1.0) H Direct Bilirubin 0.9 MG/DL (0.0-0.3) H Aspartate Amino Transf (AST/SGOT) 34 U/L (15-37) Alanine Aminotransferase (ALT/SGPT) 34 U/L (12-78) Alkaline Phosphatase 470 U/L (46-116) H Total Protein 7.6 G/DL (6.4-8.2) Albumin 2.3 G/DL (3.4-5.0) L Globulin 5.3 g/dL Albumin/Globulin Ratio 0.4 (1.0-2.7) L Plan Problems: (1) Malfunction of gastrostomy tube Assessment & Plan: This is a 57-year-old male with malfunctioning G-tube in. G -tube cellulitis. I taken care of this patient for a long period of time and trying to help resolve this. This is actually the best it has looked and prior was significantly worse. I anticipated he would stay on TPN while the G-tube site completely closed with plans for a new G-tube placement in the future in a completely different site. Unfortunately seems that a G-tube is been placed into his prior closing site now is developing cellulitis around it again. For now given that its improved and not leaking significantly potentially cellulitis can improve and will continue with localized wound care. Apply zinc oxide around the tube and continue with tube use. Nutritional optimization is keys here. We will follow with recommendations. Thank you for allowing me to participate in patient's care Still leaking around G-tube site but erythema and skin changes much improved. Still has scaling skin with some erythema noted but significant improved as prior. G-tube in stable positioning. Dressings intact. Apply zinc oxide around G-tube site as needed with dressing changes. We will continue to monitor (2) Malfunction of jejunostomy tube (3) Abnormal LFTs Assessment & Plan: Patient with elevated t bili, d bili, alk phos remain elevated CT and US with cholelithiasis ?cbd stone will discuss with GI trend labs thank you Robert Gomez Nov 06, 2018 13:36
--- NOTE | 2018-11-06 13:58 | Infectious Diseases Prog Note ---
Assessment/Plan Assessment/Plan Assessment: Sepsis 2ry to GNR bacteremia (suspect from urinary source given hydronephrosis and chronic suprapubic catheter); now shock, on pressors- r/o PNA, bacteremia, acute cholecysititis or cholangitis -11/03 u/a (delayed collection) wbc 20-30, nit neg, leuk +3; ucx NTD -10/30 BCx 4/4 ESBL P. mirabilis (S Ertapenem, ZOsyn); 10/31 BCx <10k yeast ( colonzier) -spc x MDR ABC (I Gentamicin; S polymixin B, Colistin, minocycline); colonizer -11/03 CXR: Low lung volumes leading tobronchovascular crowding. Bibasilar subsegmental atelectasis. No new airspace consolidation. -CT abd/p: Thickening of the underdistended urinary bladder is concerning for cystitis. Consider correlation with urinalysis. Moderate bilateral hydroureteronephrosis. Moderate stool in the rectosigmoid colon is suggestive of constipation. Morphologic features of cirrhosis. Cholelithiasis. -CXR: Left hemidiaphragm is elevated but this appears stable. PICC line and tracheostomy noted. Cardiomegaly is stable. Bones are osteopenic. JT dislodgement and leakage w/ surrounding cellulitis -wound cx MDR ABC (I genta); colonizer Elevated LFTs- r/o hepatobiliary disease Fever; recurrent- probable pNA -11/06 CXR: Increasing left basilar atelectasis and hazy parenchymal infiltrate, overt 2 days No leukocytosis paraplegia neurogenic bladder COPD GERD seizure disorder s/p trach dysphagia s/p J tube placement 10/22/18 [facility] resident Plan: -Continue Meropenem #/-14 for ESBL bacteremia and resume empiric IV Vancomycin #1 given worsening shock -Add po Minocycline and INH colistin for MDR ABC sputum cx given fevers and recenT CXR changes -11/03 SP Cefepime #5 -11/02 SP IV Vancomycin #5 -10/29 SP Amikacin #1 and Flagyl #1 -f/u cx -Monitor CBC/CMP, temperatures -trach/JT care -GI, Sx f/u -aspiration precautions -f/u Bcx x2 Thank you for this consultation. Will continue to follow along with you. Discussed with RN. Subjective Allergies: Coded Allergies: SULFAMETHOXAZOLE (Verified Allergy, Unknown, 10/18/17) TRIMETHOPRIM (Verified Allergy, Unknown, 10/18/17) Subjective Tm 101.5 Levo down to 2 no leukocytosis repeat Bcx p Objective Vital Signs Last 24 Hour Vital Signs Date Time Temp Pulse Resp B/P (MAP) Pulse Ox O2 Delivery O2 Flow Rate FiO2 11/06/18 13:19 85 14 28 11/06/18 13:00 83 14 127/82 (97) 100 11/06/18 12:00 85 11/06/18 12:00 98.1 87 15 116/76 (89) 100 11/06/18 12:00 28 11/06/18 12:00 Mechanical Ventilator 11/06/18 11:30 85 14 119/77 (91) 100 11/06/18 11:01 84 15 28 11/06/18 11:00 83 14 123/83 (96) 100 11/06/18 11:00 86 14 125/79 (94) 100 11/06/18 10:30 83 14 125/79 (94) 100 11/06/18 10:00 81 14 122/73 (89) 99 11/06/18 09:30 82 14 105/69 (81) 99 11/06/18 09:24 82 14 28 11/06/18 09:00 79 14 106/69 (81) 100 11/06/18 08:30 83 14 107/73 (84) 100 11/06/18 08:00 28 11/06/18 08:00 Mechanical Ventilator 11/06/18 08:00 83 11/06/18 08:00 97.0 80 14 130/87 (101) 100 11/06/18 07:00 145/89 11/06/18 07:00 75 14 145/89 (107) 100 11/06/18 06:56 77 14 28 11/06/18 06:30 75 14 124/87 (99) 100 11/06/18 06:00 110/79 11/06/18 06:00 85 14 110/79 (89) 100 11/06/18 05:38 91 103/66 11/06/18 05:30 81 17 103/66 (78) 100 11/06/18 05:26 87 14 28 11/06/18 05:00 89 14 91/65 (74) 97 11/06/18 05:00 91/65 11/06/18 04:30 84 14 108/69 (82) 97 11/06/18 04:00 Mechanical Ventilator 11/06/18 04:00 108/68 11/06/18 04:00 28 11/06/18 04:00 97.6 92 15 108/68 (81) 99 11/06/18 03:49 86 11/06/18 03:38 77/53 11/06/18 03:32 86 14 84/51 (62) 98 11/06/18 03:31 87 14 79/51 (60) 98 11/06/18 03:30 90 14 77/53 (61) 99 11/06/18 03:13 84 14 28 11/06/18 03:00 84 14 94/60 (71) 100 11/06/18 03:00 94/60 11/06/18 02:30 83 14 92/60 (71) 100 11/06/18 02:00 92/57 11/06/18 02:00 85 14 92/57 (69) 99 11/06/18 01:30 84 14 82/57 (65) 99 11/06/18 01:13 89 14 28 11/06/18 01:00 96/66 11/06/18 01:00 91 14 96/66 (76) 100 11/06/18 00:30 86 14 94/61 (72) 100 11/06/18 00:00 89 11/06/18 00:00 28 11/06/18 00:00 77/55 11/06/18 00:00 99.2 92 13 77/55 (62) 99 11/05/18 23:30 92 14 120/74 (89) 100 11/05/18 23:22 83 14 28 11/05/18 23:00 81 14 144/89 (107) 100 11/05/18 23:00 145/70 11/05/18 22:30 81 14 143/93 (110) 100 11/05/18 22:00 139/72 11/05/18 22:00 71 14 139/72 (94) 100 11/05/18 21:30 99.9 67 14 118/65 (82) 100 11/05/18 21:06 118/65 11/05/18 21:06 109 77/56 11/05/18 21:00 112 14 77/56 (63) 100 11/05/18 20:37 114 14 28 11/05/18 20:30 114 14 93/69 (77) 100 11/05/18 20:13 78/53 11/05/18 20:00 101.5 124 14 78/53 (61) 100 11/05/18 20:00 84/63 11/05/18 20:00 122 11/05/18 20:00 28 11/05/18 19:48 101.2 11/05/18 19:30 125 14 84/63 (70) 99 11/05/18 19:00 92/66 11/05/18 19:00 126 15 92/66 (75) 100 11/05/18 18:58 129 14 28 11/05/18 18:30 129 15 93/67 (76) 95 11/05/18 18:00 135 14 93/62 (72) 99 11/05/18 18:00 93/62 11/05/18 17:30 132 14 89/64 (72) 99 11/05/18 17:09 124 14 28 11/05/18 17:00 89/64 11/05/18 17:00 128 14 93/66 (75) 99 11/05/18 16:30 96 14 91/53 (66) 99 11/05/18 16:00 98.0 85 14 91/53 (66) 99 11/05/18 16:00 95 11/05/18 16:00 91/53 11/05/18 16:00 Mechanical Ventilator 11/05/18 15:30 90 14 93/54 (67) 99 11/05/18 15:19 90 14 28 11/05/18 15:00 102/71 11/05/18 15:00 113 13 102/71 (81) 100 11/05/18 14:30 110 14 103/66 (78) 99 11/05/18 14:00 113 14 90/58 (69) 98 11/05/18 14:00 90/58 11/05/18 14:00 118 82/56 11/05/18 13:50 120 27 100 Mechanical Ventilator 65.0 28 Height (Feet): 5 Height (Inches): 4.00 Weight (Pounds): 191 Objective General Appearance: WD/WN, no apparent distress, alert Cardiovascular: normal rate Respiratory/Chest: normal breath sounds, no respiratory distress Abdominal Exam: normal bowel sounds, non tender, soft, GT site - c/d/i Extremities: non-tender Laboratory Tests Test 11/05/18 15:35 11/06/18 03:50 Arterial Blood pH 7.477 (7.350-7.450) Arterial Blood Partial Pressure CO2 34.0 mmHg (35.0-45.0) L Arterial Blood Partial Pressure O2 90.6 mmHg (75.0-100.0) Arterial Blood HCO3 24.6 mmol/L (22.0-26.0) Arterial Blood Oxygen Saturation 96.8 % (95-100) Arterial Blood Base Excess 1.5 (-2-2) Kem Test Positive White Blood Count 5.1 K/UL (4.8-10.8) Red Blood Count 4.83 M/UL (4.70-6.10) Hemoglobin 14.0 G/DL (14.2-18.0) L Hematocrit 43.2 % (42.0-52.0) Mean Corpuscular Volume 89 FL (80-99) Mean Corpuscular Hemoglobin 29.0 PG (27.0-31.0) Mean Corpuscular Hemoglobin Concent 32.5 G/DL (32.0-36.0) Red Cell Distribution Width 18.6 % (11.6-14.8) H Platelet Count 335 K/UL (150-450) Mean Platelet Volume 5.9 FL (6.5-10.1) L Neutrophils (%) (Auto) % (45.0-75.0) Lymphocytes (%) (Auto) % (20.0-45.0) Monocytes (%) (Auto) % (1.0-10.0) Eosinophils (%) (Auto) % (0.0-3.0) Basophils (%) (Auto) % (0.0-2.0) Sodium Level 136 MMOL/L (136-145) Potassium Level 3.4 MMOL/L (3.5-5.1) L Chloride Level 102 MMOL/L (98-107) Carbon Dioxide Level 26 MMOL/L (21-32) Anion Gap 8 mmol/L (5-15) Blood Urea Nitrogen 8 mg/dL (7-18) Creatinine 0.6 MG/DL (0.55-1.30) Estimat Glomerular Filtration Rate > 60 mL/min (>60) Glucose Level 252 MG/DL (74-106) H Calcium Level 8.6 MG/DL (8.5-10.1) Phosphorus Level 1.8 MG/DL (2.5-4.9) L Magnesium Level 2.0 MG/DL (1.8-2.4) Total Bilirubin 1.5 MG/DL (0.2-1.0) H Direct Bilirubin 0.9 MG/DL (0.0-0.3) H Aspartate Amino Transf (AST/SGOT) 34 U/L (15-37) Alanine Aminotransferase (ALT/SGPT) 34 U/L (12-78) Alkaline Phosphatase 470 U/L (46-116) H Total Protein 7.6 G/DL (6.4-8.2) Albumin 2.3 G/DL (3.4-5.0) L Globulin 5.3 g/dL Albumin/Globulin Ratio 0.4 (1.0-2.7) L Current Medications Medications (Trade) Dose Ordered Sig/Vicenta Route PRN Reason Start Time Stop Time Status Last Admin Dose Admin Acetaminophen (Tylenol) 650 mg Q4H PRN ORAL fever 11/03/18 12:30 11/27/18 12:29 11/05/18 19:18 Acetaminophen (Tylenol) 650 mg Q4H PRN RECTAL Mild Pain (Pain Scale 1-3) 11/03/18 14:45 11/28/18 10:44 Chlorhexidine Gluconate (Caitlyn-Hex 2%) 1 applic [id number]@1999 TOPIC 11/03/18 20:00 11/28/18 19:59 11/05/18 21:06 Dextrose (Dextrose 50%) 25 ml Q30M PRN IV Hypoglycemia 11/03/18 12:30 11/27/18 14:29 Dextrose (Dextrose 50%) 50 ml Q30M PRN IV Hypoglycemia 11/03/18 12:30 11/27/18 14:29 Docusate Sodium (Colace) 100 mg BID GT 11/03/18 18:00 12/03/18 17:59 Gabapentin (Neurontin) 600 mg Q6HR GT 11/03/18 12:00 11/27/18 17:59 11/06/18 12:04 Heparin Sodium (Porcine) (Heparin 5000 units/ml) 5,000 units EVERY 12 HOURS SUBQ 11/03/18 21:00 11/27/18 20:59 11/06/18 09:12 Levetiracetam 100 ml @ 400 mls/hr Q12HR IVPB 11/03/18 21:00 11/30/18 20:59 11/06/18 09:07 Lorazepam (Ativan 2mg/ml 1ml) 1 mg Q4H PRN IV agitation 11/03/18 12:11 11/10/18 12:10 Meropenem 1 gm/ Sodium Chloride 55 ml @ 110 mls/hr Q8HR IVPB 11/03/18 14:00 11/08/18 13:59 11/06/18 05:39 Metoclopramide HCl (Reglan) 10 mg Q6H PRN IVP severe nausea 11/03/18 12:11 12/03/18 12:10 Metoprolol Tartrate (Lopressor) 25 mg Q8HR GT 11/03/18 14:00 12/02/18 21:59 11/05/18 06:03 Midodrine (Pro-Amatine) 10 mg EVERY 8 HOURS ORAL 11/04/18 14:00 12/04/18 13:59 11/06/18 05:39 Mineral Oil (Fleet's Mineral Oil Enema) 133 ml EVERY OTHER DAY RECTAL 11/04/18 09:00 11/30/18 08:59 Morphine Sulfate (Morphine Sulfate) 2 mg Q4H PRN IVP severe Pain (Pain Scale 7-10) 11/03/18 12:12 11/10/18 12:11 Nitroglycerin (Ntg) 0.4 mg Q5M X 3 DOSES PRN SL Prn Chest Pain 11/03/18 12:12 12/03/18 12:11 Norepinephrine Bitartrate 4 mg/ Dextrose 250 ml @ 0 mls/hr Q24H IV 11/03/18 13:00 12/03/18 12:59 11/05/18 20:13 Pantoprazole (Protonix) 40 mg DAILY IV 11/04/18 09:00 11/28/18 08:59 11/06/18 09:07 Polyethylene Glycol (Miralax) 17 gm BEDTIME GT 11/03/18 21:00 12/03/18 20:59 Polyethylene Glycol (Miralax) 17 gm HSPRN PRN GT Constipation 11/03/18 12:12 12/03/18 12:11 Potassium Chloride 100 ml @ 100 mls/hr Q1HR IVPB 11/06/18 10:00 11/06/18 13:59 11/06/18 12:05 Sodium Phosphate 30 mm/Sodium Chloride 285 ml @ 47.5 mls/hr ONCE IVPB 11/06/18 12:00 11/06/18 18:00 11/06/18 12:05 Zinc Oxide (Zinc Oxide) 1 applic [email or web address] PRN TOPIC around g tube site 11/03/18 13:00 12/03/18 12:59 Kimi Ramos M.D. Nov 06, 2018 13:58
[2018-11-06] MEDS ORDERED: Minocycline HCl 50mg cap ORAL SCH (15:00)
--- NOTE | 2018-11-06 15:04 | NUR ---
RD ASSESSMENT & RECOMMENDATIONS SEE CARE ACTIVITY FOR COMPLETE ASSESSMENT DAILY ESTIMATED NEEDS: Needs based on Critical care, quadriplegia 78kg adj 23-28 kcals/kg 9162-5473 total kcals 1.2-2 g protein/kg 94-156 g total protein 25-30 mL/kg 5497-1994 total fluid mLs NUTRITION DIAGNOSIS: Swallowing difficulty r/t respiratory status as evidenced by pt is vent dep via T-collar (now on trach to vent status), PEJ dep. CURRENT TF: Osmolite 1.2 @ 65-> now @30 on pressor support ENTERAL NUTRITION RECOMMENDATIONS: Osmolite 1.2 @ 65ml/hr x 24 hrs to provide 1560ml, 1872 kcal, 87gpro, 1279 ml free H2o W/ continued multiple bm's, rec TF change to Osmolite 1.2. W/ current pressor support, rec low rate of 20-30ml/hr and monitor tolerance and hemodynamic stability. - TF @goal meets 100% est needs. Advance only when stable @10ml/hr q4-6 hrs. - Flush per MD/ HOB over 30 degrees. On vent status: rec to ADD PROSOURCE x1 DAILY TO BETTER MEET EST NEEDS WHEN STABLE TO FEED @GOAL OF 65ML/HR ------- ADDITIONAL RECOMMENDATIONS: 1) Monitor lytes daily, replete as needed 2) Re-evaluate TF recs if Synthroid re-added (DC'ed at this time) 3) Monitor hemodynamic stability- TF recs as above when unstable 4) Monitor BG on TF's and need for hypoglycemic agent 5) Calibrated bed scale wt- bed w/ added P200 mattress . .
[2018-11-06] MEDS: LORazepam Inj 2mg/ml 1ml IV PRN ×2 (15:09→21:18)
--- NOTE | 2018-11-06 16:20 | NUR ---
NURSE NOTES: Patient is A/O X3. Nods and move mouth to make needs known. BP 126/79, HR 80, RR 16, 02 SAT 99%. Patient Shiley 6 cuffed, trach to vent, settings:AC 14 VT 500, FI02 28%, PEEP 5. Secretions minimal. Abdomen round, non tender. G-tube dressing dry and intact. Running Osmolite 1.2 at 30ml/hr. No residuals. Patient has a suprapubic catheter draining yellow urine below bladder. dressing changed and secure. Condom cath came off, was replaced. pt had large BM, brown loose. sacral dressing changed. ERIC PICC line running Levophed at 2mcg. Pt on sz and contact isolation. will continue to monitor pt.
--- NOTE | 2018-11-06 17:07 | Pulmonolgy Critical Care Note ---
Critical Care - Asmt/Plan Assessment/Plan: Pulmonary CCM Progress Note 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 Respiratory: monitor respiratory rate, adjust VT, FIO2,, wean in AM Cardiac: continue pressors Renal: F/U I&O, keep IV fluid Infectious Disease: continue antibiotics Gastrointestinal: hold feedings Endocrine: monitor blood sugar, check HgA1C Neurologic: PRN Ativan, PRN Morphine Critical Care - Objective Vital Signs Noted Status: awake, sedated Condition: grave Neck: full ROM Heart: HR/BP stable Abdomen: soft, feeding tube Extremities: edema Micro: Microbiology Date/Time Source Procedure Growth Status 11/03/18 12:40 Urine,Clean Catch Urine Culture - Final Yeast Species Complete Critical Care - Subjective ROS Limited/Unobtainable: Yes Condition: critical FI02: 28 Sputum Amount: Moderate Fluids: KVO Drips: levophed Tube Feeding Amount: 65 Laboratory Tests Test 11/05/18 04:20 White Blood Count 6.7 K/UL (4.8-10.8) Red Blood Count 4.43 M/UL (4.70-6.10) L Hemoglobin 12.9 G/DL (14.2-18.0) L Hematocrit 40.0 % (42.0-52.0) L Mean Corpuscular Volume 90 FL (80-99) Mean Corpuscular Hemoglobin 29.1 PG (27.0-31.0) Mean Corpuscular Hemoglobin Concent 32.2 G/DL (32.0-36.0) Red Cell Distribution Width 18.4 % (11.6-14.8) H Platelet Count 308 K/UL (150-450) Mean Platelet Volume 5.9 FL (6.5-10.1) L Neutrophils (%) (Auto) 65.7 % (45.0-75.0) Lymphocytes (%) (Auto) 21.6 % (20.0-45.0) Monocytes (%) (Auto) 8.6 % (1.0-10.0) Eosinophils (%) (Auto) 3.2 % (0.0-3.0) H Basophils (%) (Auto) 0.9 % (0.0-2.0) Sodium Level 139 MMOL/L (136-145) Potassium Level 3.5 MMOL/L (3.5-5.1) Chloride Level 105 MMOL/L (98-107) Carbon Dioxide Level 28 MMOL/L (21-32) Anion Gap 7 mmol/L (5-15) Blood Urea Nitrogen 6 mg/dL (7-18) L Creatinine 0.4 MG/DL (0.55-1.30) L Estimat Glomerular Filtration Rate > 60 mL/min (>60) Glucose Level 156 MG/DL (74-106) H Uric Acid 2.0 MG/DL (2.6-7.2) L Calcium Level 8.0 MG/DL (8.5-10.1) L Phosphorus Level 2.0 MG/DL (2.5-4.9) L Magnesium Level 1.6 MG/DL (1.8-2.4) L Total Bilirubin 1.7 MG/DL (0.2-1.0) H Direct Bilirubin 1.0 MG/DL (0.0-0.3) H Aspartate Amino Transf (AST/SGOT) 39 U/L (15-37) H Alanine Aminotransferase (ALT/SGPT) 35 U/L (12-78) Alkaline Phosphatase 472 U/L (46-116) H C-Reactive Protein, Quantitative 7.8 mg/dL (0.00-0.90) H Pro-B-Type Natriuretic Peptide 876 pg/mL (0-125) H Total Protein 6.3 G/DL (6.4-8.2) L Albumin 2.1 G/DL (3.4-5.0) L Globulin 4.2 g/dL Albumin/Globulin Ratio 0.5 (1.0-2.7) L Cortisol AM Sample Pending Critical Care - Objective Last 24 Hour Vital Signs Date Time Temp Pulse Resp B/P (MAP) Pulse Ox O2 Delivery O2 Flow Rate FiO2 11/06/18 16:30 86 16 126/79 (95) 97 11/06/18 16:00 98.9 79 16 132/80 (97) 99 11/06/18 16:00 78 11/06/18 16:00 28 11/06/18 15:01 85 14 28 11/06/18 15:00 84 14 112/71 (85) 99 11/06/18 14:00 85 14 123/78 (93) 100 11/06/18 14:00 28 11/06/18 13:19 85 14 28 11/06/18 13:00 83 14 127/82 (97) 100 11/06/18 12:00 85 11/06/18 12:00 98.1 87 15 116/76 (89) 100 11/06/18 12:00 28 11/06/18 12:00 Mechanical Ventilator 11/06/18 11:30 85 14 119/77 (91) 100 11/06/18 11:01 84 15 28 11/06/18 11:00 83 14 123/83 (96) 100 11/06/18 11:00 86 14 125/79 (94) 100 11/06/18 10:30 83 14 125/79 (94) 100 11/06/18 10:00 81 14 122/73 (89) 99 11/06/18 09:30 82 14 105/69 (81) 99 11/06/18 09:24 82 14 28 11/06/18 09:00 79 14 106/69 (81) 100 11/06/18 08:30 83 14 107/73 (84) 100 11/06/18 08:00 28 11/06/18 08:00 Mechanical Ventilator 11/06/18 08:00 83 11/06/18 08:00 97.0 80 14 130/87 (101) 100 11/06/18 07:00 145/89 11/06/18 07:00 75 14 145/89 (107) 100 11/06/18 06:56 77 14 28 11/06/18 06:30 75 14 124/87 (99) 100 11/06/18 06:00 110/79 11/06/18 06:00 85 14 110/79 (89) 100 11/06/18 05:38 91 103/66 11/06/18 05:30 81 17 103/66 (78) 100 11/06/18 05:26 87 14 28 11/06/18 05:00 89 14 91/65 (74) 97 11/06/18 05:00 91/65 11/06/18 04:30 84 14 108/69 (82) 97 11/06/18 04:00 Mechanical Ventilator 11/06/18 04:00 108/68 11/06/18 04:00 28 11/06/18 04:00 97.6 92 15 108/68 (81) 99 11/06/18 03:49 86 11/06/18 03:38 77/53 11/06/18 03:32 86 14 84/51 (62) 98 11/06/18 03:31 87 14 79/51 (60) 98 11/06/18 03:30 90 14 77/53 (61) 99 11/06/18 03:13 84 14 28 11/06/18 03:00 84 14 94/60 (71) 100 11/06/18 03:00 94/60 11/06/18 02:30 83 14 92/60 (71) 100 11/06/18 02:00 92/57 11/06/18 02:00 85 14 92/57 (69) 99 11/06/18 01:30 84 14 82/57 (65) 99 11/06/18 01:13 89 14 28 11/06/18 01:00 96/66 11/06/18 01:00 91 14 96/66 (76) 100 11/06/18 00:30 86 14 94/61 (72) 100 11/06/18 00:00 89 11/06/18 00:00 28 11/06/18 00:00 77/55 11/06/18 00:00 99.2 92 13 77/55 (62) 99 11/05/18 23:30 92 14 120/74 (89) 100 11/05/18 23:22 83 14 28 11/05/18 23:00 81 14 144/89 (107) 100 11/05/18 23:00 145/70 11/05/18 22:30 81 14 143/93 (110) 100 11/05/18 22:00 139/72 11/05/18 22:00 71 14 139/72 (94) 100 11/05/18 21:30 99.9 67 14 118/65 (82) 100 11/05/18 21:06 118/65 11/05/18 21:06 109 77/56 11/05/18 21:00 112 14 77/56 (63) 100 11/05/18 20:37 114 14 28 11/05/18 20:30 114 14 93/69 (77) 100 11/05/18 20:13 78/53 11/05/18 20:00 101.5 124 14 78/53 (61) 100 11/05/18 20:00 84/63 11/05/18 20:00 122 11/05/18 20:00 28 11/05/18 19:48 101.2 11/05/18 19:30 125 14 84/63 (70) 99 11/05/18 19:00 92/66 11/05/18 19:00 126 15 92/66 (75) 100 11/05/18 18:58 129 14 28 11/05/18 18:30 129 15 93/67 (76) 95 11/05/18 18:00 135 14 93/62 (72) 99 11/05/18 18:00 93/62 11/05/18 17:30 132 14 89/64 (72) 99 11/05/18 17:09 124 14 28 Critical Care - Subjective ROS Limited/Unobtainable: No Condition: stable FI02: 28 Vent Support Breath Rate: 14 Vent Support Mode: AC Vent Tidal Volume: 500 Sputum Amount: Scant PEEP: 5.0 PIP: 28 Tube Feeding Amount: 30 I&O: Intake and Output 11/05/18 11/06/18 19:00 07:00 Intake Total 1871.5 ml 857.75 ml Output Total 2300 ml 2335 ml Balance -428.5 ml -1477.25 ml Free Water 150 ml 60 ml IV Total 1306.5 ml 357.75 ml Tube Feeding 415 ml 360 ml Other 80 ml Output Urine Total 2100 ml 2335 ml Other 200 ml # Bowel Movements 2 Nikita Beltre MD Nov 06, 2018 17:07
[2018-11-06] MEDS: Vancomycin 1gm/D5W 275ml IVPB SCH ×2 (17:34)
--- NOTE | 2018-11-06 18:55 | NUR ---
RESPIRATORY NOTE: Received pt on AC 14, 500VT, 28%, PEEP +5. Pt is trach-dependent w/ a cuffed, Shiley 6 tube. Pt alert/awake, follows commands. B/S sonya. diminished, sxn minimal amounts of thick/thin, pale-yellow secretions. Vent plugged into red outlet, ambubag at bedside. Pt in no apparent distress at this time. Will continue to monitor pt.
--- NOTE | 2018-11-06 19:08 | NUR ---
HAND-OFF: Report given to Balbir JOSEPH. pt in no acute distress.
[2018-11-06] MEDS: Dyna-Hex 2% Top Sol 2oz TOPIC SCH (19:12)
--- NOTE | 2018-11-06 19:30 | NUR ---
NURSE NOTES: Patient received from Cintia JOSEPH. Patient is awake and alert to purpose, place and self. Patient is trached and non-verbal but can nod and move mouth to make needs known. Patient can track eyes with finger and follow commands to the best of his abilities. Patient is is contracted on his upper and lower extremities. Patient has a Shiley 6 cuffed with ventilator settings as follows: AC 14, 500tv, 28% FiO2 and peep of 5. Patient has newly replaced G-tube running Osmolite 1.2 at 30ml/hr. with goal for 65ml/hr once pressors have been discontinued. Patient also has a suprapubic catheter and a condom catheter which bags are hanging below waist. Both catheters are dry, intact and patent. Suprapubic catheter irrigation was done. ERIC PICC line running Levophed at 2mcg and TKO NS at other lumen. Dressing remains dry and intact. BP 95/53 HR 87 NSR SpO2 100% RR 14 98.9 F orally
[2018-11-06] MEDS: Miralax 17gm pkt GT SCH (19:33)
--- NOTE | 2018-11-06 20:00 | NUR ---
NURSE NOTES: Patient repositioned and given oral care. Vitals remain stable, afebrile with temperature of 98.9F (orally). Ointment applied around G-tube site area. Heels remains off-loaded. No acute distress at this time. Patient remains awake, alert and responsive.
--- NOTE | 2018-11-06 20:05 | Internal Med Progress Note ---
Subjective Physician Name Bruno Ko Attending Physician Bruno Ko MD Current Medications Medications (Trade) Dose Ordered Sig/Vicenta Route PRN Reason Start Time Stop Time Status Last Admin Dose Admin Acetaminophen (Tylenol) 650 mg Q4H PRN ORAL fever 11/03/18 12:30 11/27/18 12:29 11/05/18 19:18 Acetaminophen (Tylenol) 650 mg Q4H PRN RECTAL Mild Pain (Pain Scale 1-3) 11/03/18 14:45 11/28/18 10:44 Chlorhexidine Gluconate (Caitlyn-Hex 2%) 1 applic DAILY@1999 TOPIC 11/03/18 20:00 11/28/18 19:59 11/06/18 19:12 Colistimethate Sodium (Colistin *inhalation use only*) 150 mg Q12HR@, INH 11/06/18 22:00 11/13/18 21:59 Dextrose (Dextrose 50%) 25 ml Q30M PRN IV Hypoglycemia 11/03/18 12:30 11/27/18 14:29 Dextrose (Dextrose 50%) 50 ml Q30M PRN IV Hypoglycemia 11/03/18 12:30 11/27/18 14:29 Docusate Sodium (Colace) 100 mg BID GT 11/03/18 18:00 12/03/18 17:59 Gabapentin (Neurontin) 600 mg Q6HR GT 11/03/18 12:00 11/27/18 17:59 11/06/18 17:33 Heparin Sodium (Porcine) (Heparin 5000 units/ml) 5,000 units EVERY 12 HOURS SUBQ 11/03/18 21:00 11/27/18 20:59 11/06/18 09:12 Levetiracetam 100 ml @ 400 mls/hr Q12HR IVPB 11/03/18 21:00 11/30/18 20:59 11/06/18 09:07 Lorazepam (Ativan 2mg/ml 1ml) 1 mg Q4H PRN IV agitation 11/03/18 12:11 11/10/18 12:10 11/06/18 15:09 Meropenem 1 gm/ Sodium Chloride 55 ml @ 110 mls/hr Q8HR IVPB 11/03/18 14:00 11/08/18 13:59 11/06/18 14:49 Metoclopramide HCl (Reglan) 10 mg Q6H PRN IVP severe nausea 11/03/18 12:11 12/03/18 12:10 Metoprolol Tartrate (Lopressor) 25 mg Q8HR GT 11/03/18 14:00 12/02/18 21:59 11/05/18 06:03 Midodrine (Pro-Amatine) 10 mg EVERY 8 HOURS ORAL 11/04/18 14:00 12/04/18 13:59 11/06/18 14:51 Mineral Oil (Fleet's Mineral Oil Enema) 133 ml EVERY OTHER DAY RECTAL 11/04/18 09:00 11/30/18 08:59 Minocycline HCl (Minocin) 100 mg Q12H ORAL 11/07/18 05:00 11/14/18 04:59 Morphine Sulfate (Morphine Sulfate) 2 mg Q4H PRN IVP severe Pain (Pain Scale 7-10) 11/03/18 12:12 11/10/18 12:11 Nitroglycerin (Ntg) 0.4 mg Q5M X 3 DOSES PRN SL Prn Chest Pain 11/03/18 12:12 12/03/18 12:11 Norepinephrine Bitartrate 4 mg/ Dextrose 250 ml @ 0 mls/hr Q24H IV 11/03/18 13:00 12/03/18 12:59 11/06/18 19:12 Pantoprazole (Protonix) 40 mg DAILY IV 11/04/18 09:00 11/28/18 08:59 11/06/18 09:07 Polyethylene Glycol (Miralax) 17 gm BEDTIME GT 11/03/18 21:00 12/03/18 20:59 Polyethylene Glycol (Miralax) 17 gm HSPRN PRN GT Constipation 11/03/18 12:12 12/03/18 12:11 Vancomycin HCl (Vanco rx to dose) 1 ea DAILY PRN MISC Per rx protocol 11/06/18 14:00 12/06/18 13:59 Vancomycin HCl 1 gm/Dextrose 275 ml @ 183.708 mls/hr Q12HR@0500,1700 IVPB 11/06/18 17:00 11/11/18 16:59 11/06/18 17:34 Zinc Oxide (Zinc Oxide) 1 applic TIDPRN PRN TOPIC around g tube site 11/03/18 13:00 12/03/18 12:59 Allergies: Coded Allergies: SULFAMETHOXAZOLE (Verified Allergy, Unknown, 10/18/17) TRIMETHOPRIM (Verified Allergy, Unknown, 10/18/17) Subjective awake, alert, responsive, on Vent , in ICU Objective Last Vital Signs Date Time Temp Pulse Resp B/P (MAP) Pulse Ox O2 Delivery O2 Flow Rate FiO2 11/06/18 19:12 95/53 11/06/18 19:00 83 22 100 11/06/18 18:53 28 11/06/18 16:00 98.9 11/06/18 16:00 Mechanical Ventilator 11/05/18 13:50 65.0 Laboratory Tests Test 11/06/18 03:50 White Blood Count 5.1 K/UL (4.8-10.8) Red Blood Count 4.83 M/UL (4.70-6.10) Hemoglobin 14.0 G/DL (14.2-18.0) L Hematocrit 43.2 % (42.0-52.0) Mean Corpuscular Volume 89 FL (80-99) Mean Corpuscular Hemoglobin 29.0 PG (27.0-31.0) Mean Corpuscular Hemoglobin Concent 32.5 G/DL (32.0-36.0) Red Cell Distribution Width 18.6 % (11.6-14.8) H Platelet Count 335 K/UL (150-450) Mean Platelet Volume 5.9 FL (6.5-10.1) L Neutrophils (%) (Auto) % (45.0-75.0) Lymphocytes (%) (Auto) % (20.0-45.0) Monocytes (%) (Auto) % (1.0-10.0) Eosinophils (%) (Auto) % (0.0-3.0) Basophils (%) (Auto) % (0.0-2.0) Sodium Level 136 MMOL/L (136-145) Potassium Level 3.4 MMOL/L (3.5-5.1) L Chloride Level 102 MMOL/L (98-107) Carbon Dioxide Level 26 MMOL/L (21-32) Anion Gap 8 mmol/L (5-15) Blood Urea Nitrogen 8 mg/dL (7-18) Creatinine 0.6 MG/DL (0.55-1.30) Estimat Glomerular Filtration Rate > 60 mL/min (>60) Glucose Level 252 MG/DL (74-106) H Calcium Level 8.6 MG/DL (8.5-10.1) Phosphorus Level 1.8 MG/DL (2.5-4.9) L Magnesium Level 2.0 MG/DL (1.8-2.4) Total Bilirubin 1.5 MG/DL (0.2-1.0) H Direct Bilirubin 0.9 MG/DL (0.0-0.3) H Aspartate Amino Transf (AST/SGOT) 34 U/L (15-37) Alanine Aminotransferase (ALT/SGPT) 34 U/L (12-78) Alkaline Phosphatase 470 U/L (46-116) H Total Protein 7.6 G/DL (6.4-8.2) Albumin 2.3 G/DL (3.4-5.0) L Globulin 5.3 g/dL Albumin/Globulin Ratio 0.4 (1.0-2.7) L Intake and Output 11/05/18 11/06/18 19:00 07:00 Intake Total 1871.5 ml 857.75 ml Output Total 2300 ml 2335 ml Balance -428.5 ml -1477.25 ml Free Water 150 ml 60 ml IV Total 1306.5 ml 357.75 ml Tube Feeding 415 ml 360 ml Other 80 ml Output Urine Total 2100 ml 2335 ml Other 200 ml # Bowel Movements 2 Objective General: No acute distress, awake, responsive, on Vent HEENT: NCAT, sclera anicteric, PERRL, EOMI. Neck: Supple,trach site intact, Lungs: fair inspiratory effort,decrease air at bases, no Wheeze or Rales. Heart: Regular rate and rhythm, normal S1/S2, no murmurs Abdomen: soft, nontender, nondistended. Normoactive bowel sounds. morbid obesity , GJ tube side dressing intact, suprapubic cath intact. Extremities: No Cyanosis , clubbing or edema. Neuro: A&O x 2, Able to move lower extremities slowly, contracted extremities, RUE Piccline Skin: warm, no rash. Assessment/Plan Assessment/Plan 1. JG tube malfunction and leaks, s/p replacement. 2. acute on chronic Respiratory failure. 3. Seizure disorder. 4. Chronic obstructive pulmonary disease. 5. Gastroesophageal reflux disease. 6. Neurogenic bladder. 7. Hypothyroidism. 8. Quadriplegia. 9. Tracheostomy in situ. 10.Thrombocytopenia. 11. Septic shock 12. Proteus Mirabilis ESBL bacteremia. Plan: F/U with ID recommendations Monitor labs and cultures. Abx: Meropenem, PO Minocycline and INH colistin. Levophed drip Tolerated tube feeding @ 30 cc/hr. Bruno Ko MD Nov 06, 2018 20:05
[2018-11-06] MEDS: Colistin for inhalation INH SCH (21:09)
--- NOTE | 2018-11-06 21:18 | NUR ---
NURSE NOTES: Patient was agitated. Ativan 1mg IVP given.
--- NOTE | 2018-11-06 22:00 | NUR ---
NURSE NOTES: Repositioned patient, adjusted pillows. Decreased pressor a bit. BP showing improvement after several cycles. HR is 67 NSR. Patient sleeping. Will continue to monitor.
[2018-11-07] VITALS (55 sets, daily range): BP systolic 70–135; BP diastolic 34–79
--- NOTE | 2018-11-07 | NUR ---
NURSE NOTES: Patient placed back on 2mcg Levophed, BP on the low end with only 1mcg. Patient repositioned and gave oral care. Scheduled med given. No fever; 97.8F.
--- NOTE | 2018-11-07 02:00 | NUR ---
NURSE NOTES: Patient awake and reposive. BP maintained well within parameters with pressors still infusing. No acute distress at this time, HR maintains NSR. Deep suctioned provided. No acute changes at this time. Repositioned patient. Will continue to monitor.
--- NOTE | 2018-11-07 04:00 | NUR ---
NURSE NOTES: Patient cleaned and repositioned. Blood drawn and sent to lab. Pressors ongoing. Making good urine output. No distress at this time. Will continue to monitor.
[2018-11-07] MEDS: Vancomycin 1gm/D5W 275ml IVPB SCH ×4 (05:08→17:41)
[2018-11-07] MEDS: Gabapentin 300 MG/6 ML Soln GT SCH ×3 (05:08→17:41)
[2018-11-07] MEDS: Midodrine 10mg tab ORAL SCH ×3 (05:08→21:56)
[2018-11-07] MEDS: Metoprolol 25mg tab GT SCH ×3 (05:08→21:54)
[2018-11-07] MEDS: Meropenem 1 GM in NS 55 ML IVPB SCH ×3 (05:08→21:55)
[2018-11-07] MEDS: Minocycline HCl 50mg cap ORAL SCH ×2 (05:08→17:41)
--- NOTE | 2018-11-07 06:00 | NUR ---
NURSE NOTES: Repositioned and gave oral care. Pressors ongoing, no new changes.
[2018-11-07 06:30] LABS: BASOPHILS % (AUTO) 0.2 % (0.0-2.0); HEMATOCRIT 39.2 % (42.0-52.0); HEMOGLOBIN 12.5 G/DL (14.2-18.0); LYMPHOCYTES % (AUTO) 12.2 % (20.0-45.0); MEAN CORPUSCULAR VOLUME 91 FL (80-99); MONOCYTES % (AUTO) 2.8 % (1.0-10.0); NEUTROPHILS % (AUTO) 84.8 % (45.0-75.0); PLATELET COUNT 371 K/UL (150-450); RED BLOOD COUNT 4.32 M/UL (4.70-6.10); WHITE BLOOD COUNT 7.4 K/UL (4.8-10.8)
[2018-11-07 06:43] LABS: ANION GAP 9 mmol/L (5-15); BLOOD UREA NITROGEN 10 mg/dL (7-18); CALCIUM 8.6 MG/DL (8.5-10.1); CARBON DIOXIDE 25 MMOL/L (21-32); CHLORIDE 105 MMOL/L (98-107); CREATININE 0.6 MG/DL (0.55-1.30); PHOSPHORUS 2.3 MG/DL (2.5-4.9); POTASSIUM 3.5 MMOL/L (3.5-5.1); SODIUM 139 MMOL/L (136-145)
--- NOTE | 2018-11-07 07:00 | NUR ---
HAND-OFF: Report given to Nikita JOSEPH.
--- NOTE | 2018-11-07 07:47 | NUR ---
RESPIRATORY NOTE: received vent pt who is trached with shiley 6 placed midline and patent. trach secured via trach tie/guard. no resp distress noted. placed pt on CPAP PS 8 as ordered. weaning criteria is met. will draw ABG post 30 mins of trial. RN notified and will cont to monitor.
--- NOTE | 2018-11-07 08:20 | NUR ---
NURSE NOTES: Patient report received from OPAL Mcgregor. patient is awake and responsive to name and is able to use mouth gestures to make needs known, patient denies any pain at this time. oral care provided and moisturized lips, patient G-tube remains intact with no oozing noted around the tube or on drain sponge,
[2018-11-07] MEDS: levETIRAcetam 500mg/NS100ml 100 ML IVPB SCH ×2 (08:37→20:40)
[2018-11-07] MEDS: Docusate 100mg tablet GT SCH ×2 (08:37→17:24)
[2018-11-07] MEDS: Pantoprazole Inj IV SCH (08:37)
[2018-11-07] MEDS: Heparin 5000 units/ml inj SUBQ SCH ×2 (08:39→20:43)
--- NOTE | 2018-11-07 08:45 | NUR ---
NURSE NOTES: patient educated on medications and side effects. patient understood by noding head and medications administered, patient repositioned and remains satisfied at this time.
--- NOTE | 2018-11-07 09:05 | General Progress Note ---
Assessment/Plan Status: stable Assessment/Plan: (1) Malfunction of jejunostomy tube ICD Codes: K94.13 - Enterostomy malfunction SNOMED: 536315548, 169094017 (2) Hypokalemia ICD Codes: E87.6 - Hypokalemia SNOMED: 66473920 Status: unchanged Status Narrative Discussed with Dr. Lehman. Assessment/Plan CT AP reviewed Thickening of the underdistended urinary bladder is concerning for cystitis. Consider correlation with urinalysis. Moderate bilateral hydroureteronephrosis. Moderate stool in the rectosigmoid colon is suggestive of constipation. Morphologic features of cirrhosis. Cholelithiasis. s/p EGD with GT replacement GTFs per RD GT site care BID/prn Monitor H&H, PRN transfusions turn q2 hours PPI Electrolyte correction bowel regimen follow labs Subjective ROS Limited/Unobtainable: No Allergies: Coded Allergies: SULFAMETHOXAZOLE (Verified Allergy, Unknown, 10/18/17) TRIMETHOPRIM (Verified Allergy, Unknown, 10/18/17) Objective Last 24 Hour Vital Signs Date Time Temp Pulse Resp B/P (MAP) Pulse Ox O2 Delivery O2 Flow Rate FiO2 11/07/18 08:52 80 23 28 11/07/18 08:52 98 11/07/18 08:00 28 11/07/18 08:00 74 11/07/18 08:00 97.5 66 20 92/44 (60) 100 11/07/18 07:41 72 20 28 11/07/18 07:00 66 20 100/64 (76) 100 11/07/18 07:00 100/64 11/07/18 06:30 69 20 109/66 (80) 100 11/07/18 06:00 72 17 129/78 (95) 100 11/07/18 06:00 129/78 11/07/18 05:30 65 20 120/72 (88) 99 11/07/18 05:08 70/42 11/07/18 05:08 69 70/42 11/07/18 05:00 73 19 70/42 (51) 99 11/07/18 04:53 69 16 28 11/07/18 04:30 72 15 102/67 (79) 100 11/07/18 04:00 133/79 11/07/18 04:00 98.3 71 19 133/79 (97) 100 11/07/18 04:00 74 11/07/18 04:00 28 11/07/18 03:30 79 23 108/66 (80) 100 11/07/18 03:00 79 22 107/65 (79) 100 11/07/18 03:00 99/60 11/07/18 02:59 78 21 28 11/07/18 02:30 80 22 90/55 (67) 94 11/07/18 02:00 74 18 96/54 (68) 96 11/07/18 02:00 90/55 11/07/18 01:30 79 22 98/54 (69) 97 11/07/18 01:07 75 21 28 11/07/18 01:00 105/57 11/07/18 01:00 65 17 96/52 (67) 99 11/07/18 00:30 66 17 72/34 (47) 99 11/07/18 00:00 68 11/07/18 00:00 99/42 11/07/18 00:00 28 11/07/18 00:00 97.6 67 16 111/51 (71) 99 11/06/18 23:30 68 17 80/32 (48) 99 11/06/18 23:00 80/43 11/06/18 23:00 64 19 94/58 (70) 100 11/06/18 22:51 65 19 28 11/06/18 22:30 70 18 126/75 (92) 100 11/06/18 22:00 70 18 132/81 (98) 100 11/06/18 22:00 123/76 11/06/18 21:30 73 17 130/80 (97) 100 11/06/18 21:25 82 16 100 Mechanical Ventilator 28 11/06/18 21:10 71 17 100 Mechanical Ventilator 28 11/06/18 21:09 71 17 28 11/06/18 21:00 95/51 11/06/18 21:00 74 18 95/51 (66) 99 11/06/18 20:30 82 20 86/41 (56) 98 11/06/18 20:00 98.9 82 20 99/61 (74) 100 11/06/18 20:00 28 11/06/18 20:00 82 11/06/18 19:30 82 24 92/57 (69) 100 11/06/18 19:12 95/53 11/06/18 19:00 83 22 95/53 (67) 100 11/06/18 19:00 94/53 11/06/18 18:53 80 21 28 11/06/18 18:00 91/50 11/06/18 18:00 83 21 91/50 (64) 99 11/06/18 17:30 87 19 101/60 (74) 100 11/06/18 17:08 92 17 28 11/06/18 17:00 88 20 105/60 (75) 100 11/06/18 17:00 101/60 11/06/18 16:30 86 16 126/79 (95) 97 11/06/18 16:00 98.9 79 16 132/80 (97) 99 11/06/18 16:00 78 11/06/18 16:00 28 11/06/18 16:00 126/79 11/06/18 16:00 Mechanical Ventilator 11/06/18 15:01 85 14 28 11/06/18 15:00 84 14 112/71 (85) 99 11/06/18 15:00 130/80 11/06/18 14:00 117/74 11/06/18 14:00 85 14 123/78 (93) 100 11/06/18 14:00 28 11/06/18 13:19 85 14 28 11/06/18 13:00 123/78 11/06/18 13:00 83 14 127/82 (97) 100 11/06/18 12:05 113/75 11/06/18 12:00 85 11/06/18 12:00 98.1 87 15 116/76 (89) 100 11/06/18 12:00 28 11/06/18 12:00 Mechanical Ventilator 11/06/18 11:30 85 14 119/77 (91) 100 11/06/18 11:01 84 15 28 11/06/18 11:00 83 14 123/83 (96) 100 11/06/18 11:00 86 14 125/79 (94) 100 11/06/18 11:00 123/83 11/06/18 10:30 83 14 125/79 (94) 100 11/06/18 10:00 81 14 122/73 (89) 99 11/06/18 10:00 93/64 11/06/18 09:30 82 14 105/69 (81) 99 11/06/18 09:24 82 14 28 11/06/18 09:07 105/69 Intake and Output 11/06/18 11/07/18 19:00 07:00 Intake Total 2000.000 ml 914.37 ml Output Total 1515 ml 1375 ml Balance 485.000 ml -460.63 ml IV Total 1560.000 ml 554.37 ml Tube Feeding 330 ml 360 ml Other 110 ml Output Urine Total 1515 ml 1375 ml # Bowel Movements 2 Laboratory Tests 11/07/18 04:00: White Blood Count 7.4, Red Blood Count 4.32L, Hemoglobin 12.5L, Hematocrit 39.2L , Mean Corpuscular Volume 91, Mean Corpuscular Hemoglobin 28.9, Mean Corpuscular Hemoglobin Concent 31.9L, Red Cell Distribution Width 19.0H, Platelet Count 371, Mean Platelet Volume 5.6L, Neutrophils (%) (Auto) 84.8H, Lymphocytes (%) (Auto) 12.2L, Monocytes (%) (Auto) 2.8, Eosinophils (%) (Auto) 0.0, Basophils (%) (Auto) 0.2, Sodium Level 139, Potassium Level 3.5, Chloride Level 105, Carbon Dioxide Level 25, Anion Gap 9, Blood Urea Nitrogen 10, Creatinine 0.6, Estimat Glomerular Filtration Rate > 60, Glucose Level 229H, Calcium Level 8.6, Phosphorus Level 2.3L, Magnesium Level 1.8 11/07/18 08:30: Arterial Blood pH 7.482H, Arterial Blood Partial Pressure CO2 30.2L, Arterial Blood Partial Pressure O2 123.5H, Arterial Blood HCO3 22.1, Arterial Blood Oxygen Saturation 98.3, Arterial Blood Base Excess -0.5, Kem Test Positive Height (Feet): 5 Height (Inches): 4.00 Weight (Pounds): 191 General Appearance: no apparent distress EENT: normal ENT inspection Neck: supple Cardiovascular: tachycardia Respiratory/Chest: decreased breath sounds Abdomen: normal bowel sounds, non tender, soft Extremities: non-tender Kvng Lehman MD Nov 07, 2018 09:05
[2018-11-07] MEDS: Colistin for inhalation INH SCH ×2 (09:12→22:15)
--- NOTE | 2018-11-07 09:47 | Cardiology Progress Note ---
Assessment/Plan Status: stable Assessment/Plan Assessment/Plan Assessment/Plan 1. Tachycardia On metoprolol 25 mg GT every 8 hours Continue telemetry 2. Severe hypokalemia. Resolved 3. Dysphagia, status post GJ-tube malfunction. S/P new GJ-tube placement 11/02/18 4. History of respiratory failure, currently off the ventilator, tracheostomy in place 5. Seizure disorder. stable 6. COPD. Continue pulmonary toilet, stable on trach collar 7. Gastroesophageal reflux disease. PPI BID 8. Neurogenic bladder status post suprapubic catheter. Irrigated per urology 9. Hypothyroidism. Continue replacement 10. Quadriplegia. PT/OT 11. Transient hypotension wean levophed Start midodrine 2.5 TID Subjective Cardiovascular: Reports: no symptoms Respiratory: Reports: no symptoms Gastrointestinal/Abdominal: Reports: no symptoms Subjective Coverage for Rinku Remains in ICU on trach collar, tolerated feeds, suprapubic cath irrigated, remains tachycardic, BP stable on leveophed - 1 mcg BP 90s Objective Last 24 Hour Vital Signs Date Time Temp Pulse Resp B/P (MAP) Pulse Ox O2 Delivery O2 Flow Rate FiO2 11/07/18 09:12 63 18 100 Mechanical Ventilator 28 11/07/18 09:00 61 17 99/48 (65) 100 11/07/18 08:52 80 23 28 11/07/18 08:52 98 11/07/18 08:00 Mechanical Ventilator 11/07/18 08:00 28 11/07/18 08:00 74 11/07/18 08:00 97.5 66 20 92/44 (60) 100 11/07/18 07:41 72 20 28 11/07/18 07:00 66 20 100/64 (76) 100 11/07/18 07:00 100/64 11/07/18 06:30 69 20 109/66 (80) 100 11/07/18 06:00 72 17 129/78 (95) 100 11/07/18 06:00 129/78 11/07/18 05:30 65 20 120/72 (88) 99 11/07/18 05:08 70/42 11/07/18 05:08 69 70/42 11/07/18 05:00 73 19 70/42 (51) 99 11/07/18 04:53 69 16 28 11/07/18 04:30 72 15 102/67 (79) 100 11/07/18 04:00 133/79 11/07/18 04:00 98.3 71 19 133/79 (97) 100 11/07/18 04:00 74 11/07/18 04:00 28 11/07/18 03:30 79 23 108/66 (80) 100 11/07/18 03:00 79 22 107/65 (79) 100 11/07/18 03:00 99/60 11/07/18 02:59 78 21 28 11/07/18 02:30 80 22 90/55 (67) 94 11/07/18 02:00 74 18 96/54 (68) 96 11/07/18 02:00 90/55 11/07/18 01:30 79 22 98/54 (69) 97 11/07/18 01:07 75 21 28 11/07/18 01:00 105/57 11/07/18 01:00 65 17 96/52 (67) 99 11/07/18 00:30 66 17 72/34 (47) 99 11/07/18 00:00 68 11/07/18 00:00 99/42 11/07/18 00:00 28 11/07/18 00:00 97.6 67 16 111/51 (71) 99 11/06/18 23:30 68 17 80/32 (48) 99 11/06/18 23:00 80/43 11/06/18 23:00 64 19 94/58 (70) 100 11/06/18 22:51 65 19 28 11/06/18 22:30 70 18 126/75 (92) 100 11/06/18 22:00 70 18 132/81 (98) 100 11/06/18 22:00 123/76 11/06/18 21:30 73 17 130/80 (97) 100 11/06/18 21:25 82 16 100 Mechanical Ventilator 28 11/06/18 21:10 71 17 100 Mechanical Ventilator 28 11/06/18 21:09 71 17 28 11/06/18 21:00 95/51 11/06/18 21:00 74 18 95/51 (66) 99 11/06/18 20:30 82 20 86/41 (56) 98 11/06/18 20:00 98.9 82 20 99/61 (74) 100 11/06/18 20:00 28 11/06/18 20:00 82 11/06/18 19:30 82 24 92/57 (69) 100 11/06/18 19:12 95/53 11/06/18 19:00 83 22 95/53 (67) 100 11/06/18 19:00 94/53 11/06/18 18:53 80 21 28 11/06/18 18:00 91/50 11/06/18 18:00 83 21 91/50 (64) 99 11/06/18 17:30 87 19 101/60 (74) 100 11/06/18 17:08 92 17 28 11/06/18 17:00 88 20 105/60 (75) 100 11/06/18 17:00 101/60 11/06/18 16:30 86 16 126/79 (95) 97 11/06/18 16:00 98.9 79 16 132/80 (97) 99 11/06/18 16:00 78 11/06/18 16:00 28 11/06/18 16:00 126/79 11/06/18 16:00 Mechanical Ventilator 11/06/18 15:01 85 14 28 11/06/18 15:00 84 14 112/71 (85) 99 11/06/18 15:00 130/80 11/06/18 14:00 117/74 11/06/18 14:00 85 14 123/78 (93) 100 11/06/18 14:00 28 11/06/18 13:19 85 14 28 11/06/18 13:00 123/78 11/06/18 13:00 83 14 127/82 (97) 100 11/06/18 12:05 113/75 11/06/18 12:00 85 11/06/18 12:00 98.1 87 15 116/76 (89) 100 11/06/18 12:00 28 11/06/18 12:00 Mechanical Ventilator 11/06/18 11:30 85 14 119/77 (91) 100 11/06/18 11:01 84 15 28 11/06/18 11:00 83 14 123/83 (96) 100 11/06/18 11:00 86 14 125/79 (94) 100 11/06/18 11:00 123/83 11/06/18 10:30 83 14 125/79 (94) 100 11/06/18 10:00 81 14 122/73 (89) 99 11/06/18 10:00 93/64 General Appearance: no apparent distress, alert EENT: PERRL/EOMI, normal ENT inspection, TMs normal, pharynx normal Neck: non-tender, normal alignment, supple, normal inspection, no JVD Rhythm: NSR Cardiovascular: normal peripheral pulses, normal rate Respiratory/Chest: chest wall non-tender, lungs clear, normal breath sounds, no respiratory distress, no accessory muscle use Abdomen: normal bowel sounds, non tender, soft, no organomegaly, no mass Extremities: normal range of motion, non-tender 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 normal, no motor/sensory deficits Intake and Output 11/06/18 11/07/18 19:00 07:00 Intake Total 2000.000 ml 914.37 ml Output Total 1515 ml 1375 ml Balance 485.000 ml -460.63 ml IV Total 1560.000 ml 554.37 ml Tube Feeding 330 ml 360 ml Other 110 ml Output Urine Total 1515 ml 1375 ml # Bowel Movements 2 Laboratory Tests Test 11/07/18 04:00 11/07/18 08:30 White Blood Count 7.4 K/UL (4.8-10.8) Red Blood Count 4.32 M/UL (4.70-6.10) L Hemoglobin 12.5 G/DL (14.2-18.0) L Hematocrit 39.2 % (42.0-52.0) L Mean Corpuscular Volume 91 FL (80-99) Mean Corpuscular Hemoglobin 28.9 PG (27.0-31.0) Mean Corpuscular Hemoglobin Concent 31.9 G/DL (32.0-36.0) L Red Cell Distribution Width 19.0 % (11.6-14.8) H Platelet Count 371 K/UL (150-450) Mean Platelet Volume 5.6 FL (6.5-10.1) L Neutrophils (%) (Auto) 84.8 % (45.0-75.0) H Lymphocytes (%) (Auto) 12.2 % (20.0-45.0) L Monocytes (%) (Auto) 2.8 % (1.0-10.0) Eosinophils (%) (Auto) 0.0 % (0.0-3.0) Basophils (%) (Auto) 0.2 % (0.0-2.0) Sodium Level 139 MMOL/L (136-145) Potassium Level 3.5 MMOL/L (3.5-5.1) Chloride Level 105 MMOL/L (98-107) Carbon Dioxide Level 25 MMOL/L (21-32) Anion Gap 9 mmol/L (5-15) Blood Urea Nitrogen 10 mg/dL (7-18) Creatinine 0.6 MG/DL (0.55-1.30) Estimat Glomerular Filtration Rate > 60 mL/min (>60) Glucose Level 229 MG/DL (74-106) H Calcium Level 8.6 MG/DL (8.5-10.1) Phosphorus Level 2.3 MG/DL (2.5-4.9) L Magnesium Level 1.8 MG/DL (1.8-2.4) Arterial Blood pH 7.482 (7.350-7.450) Arterial Blood Partial Pressure CO2 30.2 mmHg (35.0-45.0) L Arterial Blood Partial Pressure O2 123.5 mmHg (75.0-100.0) H Arterial Blood HCO3 22.1 mmol/L (22.0-26.0) Arterial Blood Oxygen Saturation 98.3 % (95-100) Arterial Blood Base Excess -0.5 (-2-2) Kem Test Positive Microbiology Date/Time Source Procedure Growth Status 11/05/18 12:15 Blood Blood Culture - Preliminary NO GROWTH AFTER 24 HOURS Resulted 11/05/18 12:15 Blood Blood Culture - Preliminary NO GROWTH AFTER 24 HOURS Resulted Nikita Reddy MD Nov 07, 2018 09:47
--- NOTE | 2018-11-07 10:04 | Nephrology Progress Note ---
Assessment/Plan Problem List: (1) Hypokalemia (2) Malfunction of gastrostomy tube (3) Malfunction of jejunostomy tube (4) Seizures Assessment Sever hypokalemia Low mag other conditions; 1. JG tube malfunction and leaks. 2. Respiratory failure. 3. Seizure disorder. 4. Chronic obstructive pulmonary disease. 5. Gastroesophageal reflux disease. 6. Neurogenic bladder. 7. Hypothyroidism. 8. Quadriplegia. 9. Tracheostomy in situ. 10.Thrombocytopenia. Plan BP support Vigorous K supplement IV Phos and Mag supplement as needed waiting for GT functionality ! ( Per GI) Monitor lytes and renal parameters per orders Subjective ROS Limited/Unobtainable: Yes Objective Objective Last 24 Hour Vital Signs Date Time Temp Pulse Resp B/P (MAP) Pulse Ox O2 Delivery O2 Flow Rate FiO2 11/07/18 09:12 63 18 100 Mechanical Ventilator 28 11/07/18 09:00 61 17 99/48 (65) 100 11/07/18 08:52 80 23 28 11/07/18 08:52 98 11/07/18 08:00 Mechanical Ventilator 11/07/18 08:00 28 11/07/18 08:00 74 11/07/18 08:00 97.5 66 20 92/44 (60) 100 11/07/18 07:41 72 20 28 11/07/18 07:00 66 20 100/64 (76) 100 11/07/18 07:00 100/64 11/07/18 06:30 69 20 109/66 (80) 100 11/07/18 06:00 72 17 129/78 (95) 100 11/07/18 06:00 129/78 11/07/18 05:30 65 20 120/72 (88) 99 11/07/18 05:08 70/42 11/07/18 05:08 69 70/42 11/07/18 05:00 73 19 70/42 (51) 99 11/07/18 04:53 69 16 28 11/07/18 04:30 72 15 102/67 (79) 100 11/07/18 04:00 133/79 11/07/18 04:00 98.3 71 19 133/79 (97) 100 11/07/18 04:00 74 11/07/18 04:00 28 11/07/18 03:30 79 23 108/66 (80) 100 11/07/18 03:00 79 22 107/65 (79) 100 11/07/18 03:00 99/60 11/07/18 02:59 78 21 28 11/07/18 02:30 80 22 90/55 (67) 94 11/07/18 02:00 74 18 96/54 (68) 96 11/07/18 02:00 90/55 11/07/18 01:30 79 22 98/54 (69) 97 11/07/18 01:07 75 21 28 11/07/18 01:00 105/57 11/07/18 01:00 65 17 96/52 (67) 99 11/07/18 00:30 66 17 72/34 (47) 99 11/07/18 00:00 68 11/07/18 00:00 99/42 11/07/18 00:00 28 11/07/18 00:00 97.6 67 16 111/51 (71) 99 11/06/18 23:30 68 17 80/32 (48) 99 11/06/18 23:00 80/43 11/06/18 23:00 64 19 94/58 (70) 100 11/06/18 22:51 65 19 28 11/06/18 22:30 70 18 126/75 (92) 100 11/06/18 22:00 70 18 132/81 (98) 100 11/06/18 22:00 123/76 11/06/18 21:30 73 17 130/80 (97) 100 11/06/18 21:25 82 16 100 Mechanical Ventilator 28 11/06/18 21:10 71 17 100 Mechanical Ventilator 28 11/06/18 21:09 71 17 28 11/06/18 21:00 95/51 11/06/18 21:00 74 18 95/51 (66) 99 11/06/18 20:30 82 20 86/41 (56) 98 11/06/18 20:00 98.9 82 20 99/61 (74) 100 11/06/18 20:00 28 11/06/18 20:00 82 11/06/18 19:30 82 24 92/57 (69) 100 11/06/18 19:12 95/53 11/06/18 19:00 83 22 95/53 (67) 100 11/06/18 19:00 94/53 8/16/19 18:53 80 21 28 11/06/18 18:00 91/50 11/06/18 18:00 83 21 91/50 (64) 99 11/06/18 17:30 87 19 101/60 (74) 100 11/06/18 17:08 92 17 28 11/06/18 17:00 88 20 105/60 (75) 100 11/06/18 17:00 101/60 11/06/18 16:30 86 16 126/79 (95) 97 11/06/18 16:00 98.9 79 16 132/80 (97) 99 11/06/18 16:00 78 11/06/18 16:00 28 11/06/18 16:00 126/79 11/06/18 16:00 Mechanical Ventilator 11/06/18 15:01 85 14 28 11/06/18 15:00 84 14 112/71 (85) 99 11/06/18 15:00 130/80 11/06/18 14:00 117/74 11/06/18 14:00 85 14 123/78 (93) 100 11/06/18 14:00 28 11/06/18 13:19 85 14 28 11/06/18 13:00 123/78 11/06/18 13:00 83 14 127/82 (97) 100 11/06/18 12:05 113/75 11/06/18 12:00 85 11/06/18 12:00 98.1 87 15 116/76 (89) 100 11/06/18 12:00 28 11/06/18 12:00 Mechanical Ventilator 11/06/18 11:30 85 14 119/77 (91) 100 11/06/18 11:01 84 15 28 11/06/18 11:00 83 14 123/83 (96) 100 11/06/18 11:00 86 14 125/79 (94) 100 11/06/18 11:00 123/83 11/06/18 10:30 83 14 125/79 (94) 100 Intake and Output 11/06/18 11/07/18 19:00 07:00 Intake Total 2000.000 ml 914.37 ml Output Total 1515 ml 1375 ml Balance 485.000 ml -460.63 ml IV Total 1560.000 ml 554.37 ml Tube Feeding 330 ml 360 ml Other 110 ml Output Urine Total 1515 ml 1375 ml # Bowel Movements 2 Laboratory Tests 11/07/18 04:00: White Blood Count 7.4, Red Blood Count 4.32L, Hemoglobin 12.5L, Hematocrit 39.2L , Mean Corpuscular Volume 91, Mean Corpuscular Hemoglobin 28.9, Mean Corpuscular Hemoglobin Concent 31.9L, Red Cell Distribution Width 19.0H, Platelet Count 371, Mean Platelet Volume 5.6L, Neutrophils (%) (Auto) 84.8H, Lymphocytes (%) (Auto) 12.2L, Monocytes (%) (Auto) 2.8, Eosinophils (%) (Auto) 0.0, Basophils (%) (Auto) 0.2, Sodium Level 139, Potassium Level 3.5, Chloride Level 105, Carbon Dioxide Level 25, Anion Gap 9, Blood Urea Nitrogen 10, Creatinine 0.6, Estimat Glomerular Filtration Rate > 60, Glucose Level 229H, Calcium Level 8.6, Phosphorus Level 2.3L, Magnesium Level 1.8 11/07/18 08:30: Arterial Blood pH 7.482H, Arterial Blood Partial Pressure CO2 30.2L, Arterial Blood Partial Pressure O2 123.5H, Arterial Blood HCO3 22.1, Arterial Blood Oxygen Saturation 98.3, Arterial Blood Base Excess -0.5, Kem Test Positive Height (Feet): 5 Height (Inches): 4.00 Weight (Pounds): 191 General Appearance: no apparent distress EENT: other - trach to O2 Cardiovascular: normal rate Respiratory/Chest: decreased breath sounds Abdomen: distended Sudhakar Silverman MD Nov 07, 2018 10:04
[2018-11-07] MEDS ORDERED: Potassium Phosphate 30 MM in NS 275 ML IV ONE (10:30)
--- NOTE | 2018-11-07 12:04 | NUR ---
NURSE NOTES: Afternoon oral care provided, patient repositioned and started phosphorus replacement, upper arm picc line remains flushing on both ports and there is blood return present.
--- NOTE | 2018-11-07 12:05 | Infectious Diseases Prog Note ---
Assessment/Plan Assessment/Plan Sepsis 2ry to GNR bacteremia (suspect from urinary source given hydronephrosis and chronic suprapubic catheter); now shock, on pressors- r/o PNA, bacteremia, acute cholecysititis or cholangitis -11/03 u/a (delayed collection) wbc 20-30, nit neg, leuk +3; ucx NTD -10/30 BCx 4/4 ESBL P. mirabilis (S Ertapenem, ZOsyn); 10/31 BCx <10k yeast ( colonzier) -spc x MDR ABC (I Gentamicin; S polymixin B, Colistin, minocycline); colonizer -11/03 CXR: Low lung volumes leading tobronchovascular crowding. Bibasilar subsegmental atelectasis. No new airspace consolidation. -CT abd/p: Thickening of the underdistended urinary bladder is concerning for cystitis. Consider correlation with urinalysis. Moderate bilateral hydroureteronephrosis. Moderate stool in the rectosigmoid colon is suggestive of constipation. Morphologic features of cirrhosis. Cholelithiasis. -CXR: Left hemidiaphragm is elevated but this appears stable. PICC line and tracheostomy noted. Cardiomegaly is stable. Bones are osteopenic. JT dislodgement and leakage w/ surrounding cellulitis -wound cx MDR ABC (I genta); colonizer Elevated LFTs- r/o hepatobiliary disease Fever; recurrent- probable pNA -11/06 CXR: Increasing left basilar atelectasis and hazy parenchymal infiltrate, overt 2 days No leukocytosis paraplegia neurogenic bladder COPD GERD seizure disorder s/p trach dysphagia s/p J tube placement 10/22/18 [facility] Plan: -Continue Meropenem #5/-14 for ESBL bacteremia - Continue IV Vancomycin #2 given worsening shock - Continue Minocycline #1 and INH colistin #1 for MDR ABC sputum cx given fevers and recent CXR changes -11/03 SP Cefepime #5 -11/02 SP IV Vancomycin #5 -10/29 SP Amikacin #1 and Flagyl #1 -f/u cx -Monitor CBC/CMP, temperatures -trach/JT care -GI, Sx f/u -aspiration precautions -f/u Bcx x2 Thank you for this consultation. Will continue to follow along with you. Subjective Allergies: Coded Allergies: SULFAMETHOXAZOLE (Verified Allergy, Unknown, 10/18/17) TRIMETHOPRIM (Verified Allergy, Unknown, 10/18/17) Subjective Afebrile On Vent No leukocytosis Objective Vital Signs Last 24 Hour Vital Signs Date Time Temp Pulse Resp B/P (MAP) Pulse Ox O2 Delivery O2 Flow Rate FiO2 11/07/18 11:14 66 18 28 11/07/18 09:18 63 20 100 Mechanical Ventilator 28 11/07/18 09:12 63 18 100 Mechanical Ventilator 28 11/07/18 09:00 61 17 99/48 (65) 100 11/07/18 08:52 80 23 28 11/07/18 08:52 98 11/07/18 08:00 Mechanical Ventilator 11/07/18 08:00 28 11/07/18 08:00 74 11/07/18 08:00 97.5 66 20 92/44 (60) 100 11/07/18 07:41 72 20 28 11/07/18 07:00 66 20 100/64 (76) 100 11/07/18 07:00 100/64 11/07/18 06:30 69 20 109/66 (80) 100 11/07/18 06:00 72 17 129/78 (95) 100 11/07/18 06:00 129/78 11/07/18 05:30 65 20 120/72 (88) 99 11/07/18 05:08 70/42 11/07/18 05:08 69 70/42 11/07/18 05:00 73 19 70/42 (51) 99 11/07/18 04:53 69 16 28 11/07/18 04:30 72 15 102/67 (79) 100 11/07/18 04:00 133/79 11/07/18 04:00 98.3 71 19 133/79 (97) 100 11/07/18 04:00 74 11/07/18 04:00 28 11/07/18 03:30 79 23 108/66 (80) 100 11/07/18 03:00 79 22 107/65 (79) 100 11/07/18 03:00 99/60 11/07/18 02:59 78 21 28 11/07/18 02:30 80 22 90/55 (67) 94 11/07/18 02:00 74 18 96/54 (68) 96 11/07/18 02:00 90/55 11/07/18 01:30 79 22 98/54 (69) 97 11/07/18 01:07 75 21 28 11/07/18 01:00 105/57 11/07/18 01:00 65 17 96/52 (67) 99 11/07/18 00:30 66 17 72/34 (47) 99 11/07/18 00:00 68 11/07/18 00:00 99/42 11/07/18 00:00 28 11/07/18 00:00 97.6 67 16 111/51 (71) 99 11/06/18 23:30 68 17 80/32 (48) 99 11/06/18 23:00 80/43 11/06/18 23:00 64 19 94/58 (70) 100 11/06/18 22:51 65 19 28 11/06/18 22:30 70 18 126/75 (92) 100 11/06/18 22:00 70 18 132/81 (98) 100 11/06/18 22:00 123/76 11/06/18 21:30 73 17 130/80 (97) 100 11/06/18 21:25 82 16 100 Mechanical Ventilator 28 11/06/18 21:10 71 17 100 Mechanical Ventilator 28 11/06/18 21:09 71 17 28 11/06/18 21:00 95/51 11/06/18 21:00 74 18 95/51 (66) 99 11/06/18 20:30 82 20 86/41 (56) 98 11/06/18 20:00 98.9 82 20 99/61 (74) 100 11/06/18 20:00 28 11/06/18 20:00 82 11/06/18 19:30 82 24 92/57 (69) 100 11/06/18 19:12 95/53 11/06/18 19:00 83 22 95/53 (67) 100 11/06/18 19:00 94/53 11/06/18 18:53 80 21 28 11/06/18 18:00 91/50 11/06/18 18:00 83 21 91/50 (64) 99 11/06/18 17:30 87 19 101/60 (74) 100 11/06/18 17:08 92 17 28 11/06/18 17:00 88 20 105/60 (75) 100 11/06/18 17:00 101/60 11/06/18 16:30 86 16 126/79 (95) 97 11/06/18 16:00 98.9 79 16 132/80 (97) 99 11/06/18 16:00 78 11/06/18 16:00 28 11/06/18 16:00 126/79 11/06/18 16:00 Mechanical Ventilator 11/06/18 15:01 85 14 28 11/06/18 15:00 84 14 112/71 (85) 99 11/06/18 15:00 130/80 11/06/18 14:00 117/74 11/06/18 14:00 85 14 123/78 (93) 100 11/06/18 14:00 28 11/06/18 13:19 85 14 28 11/06/18 13:00 123/78 11/06/18 13:00 83 14 127/82 (97) 100 11/06/18 12:05 113/75 Height (Feet): 5 Height (Inches): 4.00 Weight (Pounds): 191 Objective General Appearance: NAD, Trached on 28% O2 Cardiovascular: RRR, S1, S2 Respiratory/Chest: normal breath sounds, no respiratory distress, No W Abdominal Exam: normal bowel sounds, non tender, soft, GT site - c/d/i Extremities: non-tender Microbiology Date/Time Source Procedure Growth Status 11/05/18 12:15 Blood Blood Culture - Preliminary NO GROWTH AFTER 24 HOURS Resulted 11/05/18 12:15 Blood Blood Culture - Preliminary NO GROWTH AFTER 24 HOURS Resulted Laboratory Tests Test 11/07/18 04:00 11/07/18 08:30 White Blood Count 7.4 K/UL (4.8-10.8) Red Blood Count 4.32 M/UL (4.70-6.10) L Hemoglobin 12.5 G/DL (14.2-18.0) L Hematocrit 39.2 % (42.0-52.0) L Mean Corpuscular Volume 91 FL (80-99) Mean Corpuscular Hemoglobin 28.9 PG (27.0-31.0) Mean Corpuscular Hemoglobin Concent 31.9 G/DL (32.0-36.0) L Red Cell Distribution Width 19.0 % (11.6-14.8) H Platelet Count 371 K/UL (150-450) Mean Platelet Volume 5.6 FL (6.5-10.1) L Neutrophils (%) (Auto) 84.8 % (45.0-75.0) H Lymphocytes (%) (Auto) 12.2 % (20.0-45.0) L Monocytes (%) (Auto) 2.8 % (1.0-10.0) Eosinophils (%) (Auto) 0.0 % (0.0-3.0) Basophils (%) (Auto) 0.2 % (0.0-2.0) Sodium Level 139 MMOL/L (136-145) Potassium Level 3.5 MMOL/L (3.5-5.1) Chloride Level 105 MMOL/L (98-107) Carbon Dioxide Level 25 MMOL/L (21-32) Anion Gap 9 mmol/L (5-15) Blood Urea Nitrogen 10 mg/dL (7-18) Creatinine 0.6 MG/DL (0.55-1.30) Estimat Glomerular Filtration Rate > 60 mL/min (>60) Glucose Level 229 MG/DL (74-106) H Calcium Level 8.6 MG/DL (8.5-10.1) Phosphorus Level 2.3 MG/DL (2.5-4.9) L Magnesium Level 1.8 MG/DL (1.8-2.4) Arterial Blood pH 7.482 (7.350-7.450) Arterial Blood Partial Pressure CO2 30.2 mmHg (35.0-45.0) L Arterial Blood Partial Pressure O2 123.5 mmHg (75.0-100.0) H Arterial Blood HCO3 22.1 mmol/L (22.0-26.0) Arterial Blood Oxygen Saturation 98.3 % (95-100) Arterial Blood Base Excess -0.5 (-2-2) Kem Test Positive Current Medications Medications (Trade) Dose Ordered Sig/Vicenta Route PRN Reason Start Time Stop Time Status Last Admin Dose Admin Acetaminophen (Tylenol) 650 mg Q4H PRN ORAL fever 11/03/18 12:30 11/27/18 12:29 11/05/18 19:18 Acetaminophen (Tylenol) 650 mg Q4H PRN RECTAL Mild Pain (Pain Scale 1-3) 11/03/18 14:45 11/28/18 10:44 Chlorhexidine Gluconate (Caitlyn-Hex 2%) 1 applic DAILY@2000 TOPIC 11/03/18 20:00 11/28/18 19:59 11/06/18 19:12 Colistimethate Sodium (Colistin *inhalation use only*) 150 mg Q12HR@10,22 INH 11/06/18 22:00 11/13/18 21:59 11/07/18 09:12 Dextrose (Dextrose 50%) 25 ml Q30M PRN IV Hypoglycemia 11/03/18 12:30 11/27/18 14:29 Dextrose (Dextrose 50%) 50 ml Q30M PRN IV Hypoglycemia 11/03/18 12:30 11/27/18 14:29 Docusate Sodium (Colace) 100 mg BID GT 11/03/18 18:00 12/03/18 17:59 11/07/18 08:37 Gabapentin (Neurontin) 600 mg Q6HR GT 11/03/18 12:00 11/27/18 17:59 11/07/18 05:08 Heparin Sodium (Porcine) (Heparin 5000 units/ml) 5,000 units EVERY 12 HOURS SUBQ 11/03/18 21:00 11/27/18 20:59 11/07/18 08:39 Levetiracetam 100 ml @ 400 mls/hr Q12HR IVPB 11/03/18 21:00 11/30/18 20:59 11/07/18 08:37 Lorazepam (Ativan 2mg/ml 1ml) 1 mg Q4H PRN IV agitation 11/03/18 12:11 11/10/18 12:10 11/06/18 21:18 Meropenem 1 gm/ Sodium Chloride 55 ml @ 110 mls/hr Q8HR IVPB 11/03/18 14:00 11/08/18 13:59 11/07/18 05:08 Metoclopramide HCl (Reglan) 10 mg Q6H PRN IVP severe nausea 11/03/18 12:11 12/03/18 12:10 Metoprolol Tartrate (Lopressor) 25 mg Q8HR GT 11/03/18 14:00 12/02/18 21:59 11/05/18 06:03 Midodrine (Pro-Amatine) 10 mg EVERY 8 HOURS ORAL 11/04/18 14:00 12/04/18 13:59 11/07/18 05:08 Mineral Oil (Fleet's Mineral Oil Enema) 133 ml EVERY OTHER DAY RECTAL 11/04/18 09:00 11/30/18 08:59 Minocycline HCl (Minocin) 100 mg Q12H ORAL 11/07/18 05:00 11/14/18 04:59 11/07/18 05:08 Morphine Sulfate (Morphine Sulfate) 2 mg Q4H PRN IVP severe Pain (Pain Scale 7-10) 11/03/18 12:12 11/10/18 12:11 Nitroglycerin (Ntg) 0.4 mg Q5M X 3 DOSES PRN SL Prn Chest Pain 11/03/18 12:12 12/03/18 12:11 Norepinephrine Bitartrate 4 mg/ Dextrose 250 ml @ 0 mls/hr Q24H IV 11/03/18 13:00 12/03/18 12:59 11/06/18 19:12 Pantoprazole (Protonix) 40 mg DAILY IV 11/04/18 09:00 11/28/18 08:59 11/07/18 08:37 Polyethylene Glycol (Miralax) 17 gm BEDTIME GT 11/03/18 21:00 12/03/18 20:59 Polyethylene Glycol (Miralax) 17 gm HSPRN PRN GT Constipation 11/03/18 12:12 12/03/18 12:11 Potassium Phosphate 30 mm/ Sodium Chloride 285 ml @ 47.5 mls/hr ONCE ONCE IV 11/07/18 10:30 11/07/18 16:29 Vancomycin HCl (Vanco rx to dose) 1 ea DAILY PRN MISC Per rx protocol 11/06/18 14:00 12/06/18 13:59 Vancomycin HCl 1 gm/Dextrose 275 ml @ 183.708 mls/hr Q12HR@0500,1700 IVPB 11/06/18 17:00 11/11/18 16:59 11/07/18 05:08 Zinc Oxide (Zinc Oxide) 1 applic TIDPRN PRN TOPIC around g tube site 11/03/18 13:00 12/03/18 12:59 Nikita Mobley MD Nov 07, 2018 12:05
--- NOTE | 2018-11-07 13:58 | Pulmonolgy Critical Care Note ---
Critical Care - Asmt/Plan Assessment/Plan: Pulmonary CCM Progress Note 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 Respiratory: monitor respiratory rate, adjust VT, FIO2,, wean in AM Cardiac: continue pressors Renal: F/U I&O, keep IV fluid Infectious Disease: continue antibiotics Gastrointestinal: hold feedings Endocrine: monitor blood sugar, check HgA1C Neurologic: PRN Ativan, PRN Morphine Critical Care - Objective Vital Signs Noted Status: awake, sedated Condition: grave Neck: full ROM Heart: HR/BP stable Abdomen: soft, feeding tube Extremities: edema Micro: Microbiology Date/Time Source Procedure Growth Status 11/03/18 12:40 Urine,Clean Catch Urine Culture - Final Yeast Species Complete Critical Care - Subjective ROS Limited/Unobtainable: Yes Condition: critical FI02: 28 Sputum Amount: Moderate Fluids: KVO Drips: levophed Tube Feeding Amount: 65 Laboratory Tests Test 11/05/18 04:20 White Blood Count 6.7 K/UL (4.8-10.8) Red Blood Count 4.43 M/UL (4.70-6.10) L Hemoglobin 12.9 G/DL (14.2-18.0) L Hematocrit 40.0 % (42.0-52.0) L Mean Corpuscular Volume 90 FL (80-99) Mean Corpuscular Hemoglobin 29.1 PG (27.0-31.0) Mean Corpuscular Hemoglobin Concent 32.2 G/DL (32.0-36.0) Red Cell Distribution Width 18.4 % (11.6-14.8) H Platelet Count 308 K/UL (150-450) Mean Platelet Volume 5.9 FL (6.5-10.1) L Neutrophils (%) (Auto) 65.7 % (45.0-75.0) Lymphocytes (%) (Auto) 21.6 % (20.0-45.0) Monocytes (%) (Auto) 8.6 % (1.0-10.0) Eosinophils (%) (Auto) 3.2 % (0.0-3.0) H Basophils (%) (Auto) 0.9 % (0.0-2.0) Sodium Level 139 MMOL/L (136-145) Potassium Level 3.5 MMOL/L (3.5-5.1) Chloride Level 105 MMOL/L (98-107) Carbon Dioxide Level 28 MMOL/L (21-32) Anion Gap 7 mmol/L (5-15) Blood Urea Nitrogen 6 mg/dL (7-18) L Creatinine 0.4 MG/DL (0.55-1.30) L Estimat Glomerular Filtration Rate > 60 mL/min (>60) Glucose Level 156 MG/DL (74-106) H Uric Acid 2.0 MG/DL (2.6-7.2) L Calcium Level 8.0 MG/DL (8.5-10.1) L Phosphorus Level 2.0 MG/DL (2.5-4.9) L Magnesium Level 1.6 MG/DL (1.8-2.4) L Total Bilirubin 1.7 MG/DL (0.2-1.0) H Direct Bilirubin 1.0 MG/DL (0.0-0.3) H Aspartate Amino Transf (AST/SGOT) 39 U/L (15-37) H Alanine Aminotransferase (ALT/SGPT) 35 U/L (12-78) Alkaline Phosphatase 472 U/L (46-116) H C-Reactive Protein, Quantitative 7.8 mg/dL (0.00-0.90) H Pro-B-Type Natriuretic Peptide 876 pg/mL (0-125) H Total Protein 6.3 G/DL (6.4-8.2) L Albumin 2.1 G/DL (3.4-5.0) L Globulin 4.2 g/dL Albumin/Globulin Ratio 0.5 (1.0-2.7) L Cortisol AM Sample Pending Critical Care - Objective Last 24 Hour Vital Signs Date Time Temp Pulse Resp B/P (MAP) Pulse Ox O2 Delivery O2 Flow Rate FiO2 11/07/18 13:09 75 20 28 11/07/18 12:00 28 11/07/18 11:14 66 18 28 11/07/18 09:18 63 20 100 Mechanical Ventilator 28 11/07/18 09:12 63 18 100 Mechanical Ventilator 11/07/18 09:00 61 17 99/48 (65) 100 8/17/19 08:52 80 23 28 11/07/18 08:52 98 11/07/18 08:00 Mechanical Ventilator 11/07/18 08:00 28 11/07/18 08:00 74 11/07/18 08:00 97.5 66 20 92/44 (60) 100 11/07/18 07:41 72 20 28 11/07/18 07:00 66 20 100/64 (76) 100 11/07/18 07:00 100/64 11/07/18 06:30 69 20 109/66 (80) 100 11/07/18 06:00 72 17 129/78 (95) 100 11/07/18 06:00 129/78 11/07/18 05:30 65 20 120/72 (88) 99 11/07/18 05:08 70/42 11/07/18 05:08 69 70/42 11/07/18 05:00 73 19 70/42 (51) 99 11/07/18 04:53 69 16 28 11/07/18 04:30 72 15 102/67 (79) 100 11/07/18 04:00 133/79 11/07/18 04:00 98.3 71 19 133/79 (97) 100 11/07/18 04:00 74 11/07/18 04:00 28 11/07/18 03:30 79 23 108/66 (80) 100 11/07/18 03:00 79 22 107/65 (79) 100 11/07/18 03:00 99/60 11/07/18 02:59 78 21 28 11/07/18 02:30 80 22 90/55 (67) 94 11/07/18 02:00 74 18 96/54 (68) 96 11/07/18 02:00 90/55 11/07/18 01:30 79 22 98/54 (69) 97 11/07/18 01:07 75 21 28 11/07/18 01:00 105/57 11/07/18 01:00 65 17 96/52 (67) 99 11/07/18 00:30 66 17 72/34 (47) 99 11/07/18 00:00 68 11/07/18 00:00 99/42 11/07/18 00:00 28 11/07/18 00:00 97.6 67 16 111/51 (71) 99 11/06/18 23:30 68 17 80/32 (48) 99 11/06/18 23:00 80/43 11/06/18 23:00 64 19 94/58 (70) 100 11/06/18 22:51 65 19 28 11/06/18 22:30 70 18 126/75 (92) 100 11/06/18 22:00 70 18 132/81 (98) 100 11/06/18 22:00 123/76 11/06/18 21:30 73 17 130/80 (97) 100 11/06/18 21:25 82 16 100 Mechanical Ventilator 28 11/06/18 21:10 71 17 100 Mechanical Ventilator 28 11/06/18 21:09 71 17 28 11/06/18 21:00 95/51 11/06/18 21:00 74 18 95/51 (66) 99 11/06/18 20:30 82 20 86/41 (56) 98 11/06/18 20:00 98.9 82 20 99/61 (74) 100 11/06/18 20:00 28 11/06/18 20:00 82 11/06/18 19:30 82 24 92/57 (69) 100 11/06/18 19:12 95/53 11/06/18 19:00 83 22 95/53 (67) 100 11/06/18 19:00 94/53 11/06/18 18:53 80 21 28 11/06/18 18:00 91/50 11/06/18 18:00 83 21 91/50 (64) 99 11/06/18 17:30 87 19 101/60 (74) 100 11/06/18 17:08 92 17 28 11/06/18 17:00 88 20 105/60 (75) 100 11/06/18 17:00 101/60 11/06/18 16:30 86 16 126/79 (95) 97 11/06/18 16:00 98.9 79 16 132/80 (97) 99 11/06/18 16:00 78 11/06/18 16:00 28 11/06/18 16:00 126/79 11/06/18 16:00 Mechanical Ventilator 11/06/18 15:01 85 14 28 11/06/18 15:00 84 14 112/71 (85) 99 11/06/18 15:00 130/80 11/06/18 14:00 117/74 11/06/18 14:00 85 14 123/78 (93) 100 11/06/18 14:00 28 Micro: Microbiology Date/Time Source Procedure Growth Status 11/05/18 12:15 Blood Blood Culture - Preliminary NO GROWTH AFTER 24 HOURS Resulted 11/05/18 12:15 Blood Blood Culture - Preliminary NO GROWTH AFTER 24 HOURS Resulted Critical Care - Subjective FI02: 28 Vent Support Breath Rate: 14 Vent Support Mode: CPAP Vent Tidal Volume: 500 Sputum Amount: Small PEEP: 5.0 PIP: 14 Tube Feeding Amount: 40 I&O: Intake and Output 11/06/18 11/07/18 19:00 07:00 Intake Total 2000.000 ml 914.37 ml Output Total 1515 ml 1375 ml Balance 485.000 ml -460.63 ml IV Total 1560.000 ml 554.37 ml Tube Feeding 330 ml 360 ml Other 110 ml Output Urine Total 1515 ml 1375 ml # Bowel Movements 2 Nikita Beltre MD Nov 07, 2018 13:58
--- NOTE | 2018-11-07 15:47 | NUR ---
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
--- NOTE | 2018-11-07 16:00 | NUR ---
NURSE NOTES: medications administered through G-tube, patient educated on medications and provided oral care, remains afebrile at this time. tube feeding remains at 40ml/hr with no leaking or oozing noted from site.
--- NOTE | 2018-11-07 17:05 | NUR ---
HAND-OFF: Report given to Divya Richard RN.
--- NOTE | 2018-11-07 17:06 | NUR ---
NURSE NOTES: Report received from OPAL Shelton. Pt is sleeping in bed. Able to wake up and answer for simple questions. Bilateral upper and lower extremities contract. Sinus saul with BBB on surveillance system monitor. Trach to vent with AC 14, TV 500, FiO2 28%, P5. No respiratory distress noted. G-tube in place receiving Osmolite 1.2 at 40cc/hr. No residual noted. Suprapubic and Condom in place draining to gravity. Urine mostly coming from Suprapubic cath. Left UA patent and asymptomatic. Levophed is running at 1mcg/min. Bed in lowest position. Side rails up x4. Call light within reach. Will resume plan of care.
--- NOTE | 2018-11-07 19:00 | NUR ---
NURSE NOTES: Cleaned pt for moderate amount of brown soft BM. Repositioned pt. Levophed is still running at 1mcg/min. BP 112/62. Will continue to monitor.
--- NOTE | 2018-11-07 19:25 | NUR ---
HAND-OFF: Report given to OPLA Nicholson.
--- NOTE | 2018-11-07 19:37 | NUR ---
RESPIRATORY NOTE: Received pt. on 840 vent. Vent settings are: A/C rate of 14, Vt 500, FI02 28%, PEEP +5. No respiratory distress noted, pt. sP02 @ 100%. AMBU bag @ BS. Vent plugged on red outlet. Will continue to monitor pt.
--- NOTE | 2018-11-07 19:42 | NUR ---
NURSE NOTES: pt awake and alert x2 no acute resp distress o2 sat 100 o/o tolerating tube feeding no residual reposition and suction on levo at 1mcg /min
--- NOTE | 2018-11-07 20:17 | Urology Progress Note ---
Assessment/Plan Status: stable Assessment/Plan: 1. Urinary retention with chronic suprapubic tube. 2. Neurogenic bladder. 3. Hydronephrosis, which appears to be chronic. 4. Nephrolithiasis. 5. Cystitis. 6. Hematuria. 7. Probable colonized urine. 8. Sepsis. monitor clinically keep SP tube, last exchanged 10/24 hand irrigated and do PRN position satisfactory, intermittent leakage from penis abx as ordered consider nuclear renal scan f/u on blood cx Subjective Allergies: Coded Allergies: SULFAMETHOXAZOLE (Verified Allergy, Unknown, 10/18/17) TRIMETHOPRIM (Verified Allergy, Unknown, 10/18/17) Subjective some more SP tube output, less penile output per nurse Objective Last 24 Hour Vital Signs Date Time Temp Pulse Resp B/P (MAP) Pulse Ox O2 Delivery O2 Flow Rate FiO2 11/07/18 20:00 98.0 74 17 102/54 (70) 100 11/07/18 19:39 77 22 28 11/07/18 19:30 71 17 111/61 (78) 100 11/07/18 19:00 112/62 11/07/18 19:00 65 17 105/59 (74) 100 11/07/18 18:45 62 16 112/62 (79) 100 11/07/18 18:30 98.1 60 16 112/61 (78) 100 11/07/18 18:00 59 16 107/67 (80) 100 11/07/18 18:00 60 17 100 11/07/18 17:45 57 19 111/70 (84) 100 11/07/18 17:30 58 15 129/72 (91) 100 11/07/18 17:15 55 17 134/73 (93) 100 11/07/18 17:06 Mechanical Ventilator 11/07/18 17:00 134/73 11/07/18 17:00 55 17 131/69 (89) 100 11/07/18 16:45 53 19 131/69 (89) 100 11/07/18 16:44 56 19 28 11/07/18 16:30 55 17 135/73 (93) 100 11/07/18 16:00 117 11/07/18 16:00 106/59 11/07/18 16:00 28 11/07/18 15:57 98.0 64 18 106/59 (75) 100 11/07/18 15:49 68 108/59 11/07/18 15:00 105/55 11/07/18 14:50 28 11/07/18 14:48 68 21 28 11/07/18 14:45 73 21 114/72 (86) 100 11/07/18 14:30 69 21 109/58 (75) 100 11/07/18 14:15 69 19 97/55 (69) 100 11/07/18 14:00 72 20 104/53 (70) 100 11/07/18 14:00 104/53 11/07/18 13:45 72 19 102/57 (72) 100 11/07/18 13:30 70 20 105/55 (72) 100 11/07/18 13:15 73 20 100/56 (71) 100 11/07/18 13:09 75 20 28 11/07/18 13:00 100/53 11/07/18 13:00 73 18 100/53 (69) 100 11/07/18 12:45 63 16 129/70 (89) 100 11/07/18 12:30 63 18 117/60 (79) 100 11/07/18 12:15 63 17 119/63 (81) 100 11/07/18 12:00 61 11/07/18 12:00 Mechanical Ventilator 11/07/18 12:00 97.8 63 17 123/65 (84) 100 11/07/18 12:00 123/65 11/07/18 12:00 28 11/07/18 11:45 63 16 128/68 (88) 100 11/07/18 11:30 64 17 118/63 (81) 100 11/07/18 11:15 71 21 130/68 (88) 100 11/07/18 11:14 66 18 28 11/07/18 11:00 55 16 78/49 (59) 100 11/07/18 11:00 111/63 11/07/18 10:45 59 18 78/49 (59) 98 11/07/18 10:30 76/45 11/07/18 10:30 60 18 73/45 (54) 98 11/07/18 09:18 63 20 100 Mechanical Ventilator 28 11/07/18 09:12 63 18 100 Mechanical Ventilator 28 11/07/18 09:00 61 17 99/48 (65) 100 11/07/18 08:52 80 23 28 11/07/18 08:52 98 11/07/18 08:00 Mechanical Ventilator 11/07/18 08:00 28 11/07/18 08:00 74 11/07/18 08:00 97.5 66 20 92/44 (60) 100 11/07/18 07:41 72 20 28 11/07/18 07:00 66 20 100/64 (76) 100 11/07/18 07:00 100/64 11/07/18 06:30 69 20 109/66 (80) 100 11/07/18 06:00 72 17 129/78 (95) 100 11/07/18 06:00 129/78 11/07/18 05:30 65 20 120/72 (88) 99 11/07/18 05:08 70/42 11/07/18 05:08 69 70/42 11/07/18 05:00 73 19 70/42 (51) 99 11/07/18 04:53 69 16 28 11/07/18 04:30 72 15 102/67 (79) 100 11/07/18 04:00 133/79 11/07/18 04:00 98.3 71 19 133/79 (97) 100 11/07/18 04:00 74 11/07/18 04:00 28 11/07/18 03:30 79 23 108/66 (80) 100 11/07/18 03:00 79 22 107/65 (79) 100 11/07/18 03:00 99/60 11/07/18 02:59 78 21 28 11/07/18 02:30 80 22 90/55 (67) 94 11/07/18 02:00 74 18 96/54 (68) 96 11/07/18 02:00 90/55 11/07/18 01:30 79 22 98/54 (69) 97 11/07/18 01:07 75 21 28 11/07/18 01:00 105/57 11/07/18 01:00 65 17 96/52 (67) 99 11/07/18 00:30 66 17 72/34 (47) 99 11/07/18 00:00 68 11/07/18 00:00 99/42 11/07/18 00:00 28 11/07/18 00:00 97.6 67 16 111/51 (71) 99 11/06/18 23:30 68 17 80/32 (48) 99 11/06/18 23:00 80/43 11/06/18 23:00 64 19 94/58 (70) 100 11/06/18 22:51 65 19 28 11/06/18 22:30 70 18 126/75 (92) 100 11/06/18 22:00 70 18 132/81 (98) 100 11/06/18 22:00 123/76 11/06/18 21:30 73 17 130/80 (97) 100 11/06/18 21:25 82 16 100 Mechanical Ventilator 28 11/06/18 21:10 71 17 100 Mechanical Ventilator 28 11/06/18 21:09 71 17 28 11/06/18 21:00 95/51 11/06/18 21:00 74 18 95/51 (66) 99 11/06/18 20:30 82 20 86/41 (56) 98 Intake and Output 11/06/18 11/07/18 18:59 06:59 Intake Total 1717.458 ml 1206.292 ml Output Total 1645 ml 1400 ml Balance 72.458 ml -193.708 ml IV Total 1277.458 ml 846.292 ml Tube Feeding 330 ml 360 ml Other 110 ml Output Urine Total 1645 ml 1400 ml # Bowel Movements 2 Microbiology Date/Time Source Procedure Growth Status 11/05/18 12:15 Blood Blood Culture - Preliminary NO GROWTH AFTER 24 HOURS Resulted 10/31/18 21:30 Sputum Gram Stain - Final Complete 10/31/18 21:30 Sputum Culture - Final A.baumanii Complx - Mdr Usual Respiratory Nataly Complete 11/03/18 12:40 Urine,Clean Catch Urine Culture - Final Yeast Species Complete 11/01/18 03:00 Abdomen Gram Stain - Final Complete 11/01/18 03:00 Wound Culture - Final A.baumanii Complx - Mdr Wanda Albicans Usual Skin Nataly Complete Current Medications Medications (Trade) Dose Ordered Sig/Vicenta Route PRN Reason Start Time Stop Time Status Last Admin Dose Admin Acetaminophen (Tylenol) 650 mg Q4H PRN ORAL fever 11/03/18 12:30 11/27/18 12:29 11/05/18 19:18 Acetaminophen (Tylenol) 650 mg Q4H PRN RECTAL Mild Pain (Pain Scale 1-3) 11/03/18 14:45 11/28/18 10:44 Chlorhexidine Gluconate (Caitlyn-Hex 2%) 1 applic DAILY@2000 TOPIC 11/03/18 20:00 11/28/18 19:59 11/06/18 19:12 Colistimethate Sodium (Colistin *inhalation use only*) 150 mg Q12HR@10,22 INH 11/06/18 22:00 11/13/18 21:59 11/07/18 09:12 Dextrose (Dextrose 50%) 25 ml Q30M PRN IV Hypoglycemia 11/03/18 12:30 11/27/18 14:29 Dextrose (Dextrose 50%) 50 ml Q30M PRN IV Hypoglycemia 11/03/18 12:30 11/27/18 14:29 Docusate Sodium (Colace) 100 mg BID GT 11/03/18 18:00 12/03/18 17:59 11/07/18 08:37 Gabapentin (Neurontin) 600 mg Q6HR GT 11/03/18 12:00 11/27/18 17:59 11/07/18 17:41 Heparin Sodium (Porcine) (Heparin 5000 units/ml) 5,000 units EVERY 12 HOURS SUBQ 11/03/18 21:00 11/27/18 20:59 11/07/18 08:39 Levetiracetam 100 ml @ 400 mls/hr Q12HR IVPB 11/03/18 21:00 11/30/18 20:59 11/07/18 08:37 Lorazepam (Ativan 2mg/ml 1ml) 1 mg Q4H PRN IV agitation 11/03/18 12:11 11/10/18 12:10 11/06/18 21:18 Meropenem 1 gm/ Sodium Chloride 55 ml @ 110 mls/hr Q8HR IVPB 11/03/18 14:00 11/13/18 13:59 11/07/18 15:49 Metoclopramide HCl (Reglan) 10 mg Q6H PRN IVP severe nausea 11/03/18 12:11 12/03/18 12:10 Metoprolol Tartrate (Lopressor) 25 mg Q8HR GT 11/03/18 14:00 12/02/18 21:59 11/07/18 15:49 Midodrine (Pro-Amatine) 10 mg EVERY 8 HOURS ORAL 11/04/18 14:00 12/04/18 13:59 11/07/18 15:49 Mineral Oil (Fleet's Mineral Oil Enema) 133 ml EVERY OTHER DAY RECTAL 11/04/18 09:00 11/30/18 08:59 Minocycline HCl (Minocin) 100 mg Q12H ORAL 11/07/18 05:00 11/14/18 04:59 11/07/18 17:41 Morphine Sulfate (Morphine Sulfate) 2 mg Q4H PRN IVP severe Pain (Pain Scale 7-10) 11/03/18 12:12 11/10/18 12:11 Nitroglycerin (Ntg) 0.4 mg Q5M X 3 DOSES PRN SL Prn Chest Pain 11/03/18 12:12 12/03/18 12:11 Norepinephrine Bitartrate 4 mg/ Dextrose 250 ml @ 0 mls/hr Q24H IV 11/03/18 13:00 12/03/18 12:59 11/06/18 19:12 Pantoprazole (Protonix) 40 mg DAILY IV 11/04/18 09:00 11/28/18 08:59 11/07/18 08:37 Polyethylene Glycol (Miralax) 17 gm BEDTIME GT 11/03/18 21:00 12/03/18 20:59 Polyethylene Glycol (Miralax) 17 gm HSPRN PRN GT Constipation 11/03/18 12:12 12/03/18 12:11 Vancomycin HCl (Vanco rx to dose) 1 ea DAILY PRN MISC Per rx protocol 11/06/18 14:00 12/06/18 13:59 Vancomycin HCl 1 gm/Dextrose 275 ml @ 183.708 mls/hr Q12HR@0500,1700 IVPB 11/06/18 17:00 11/11/18 16:59 11/07/18 17:41 Zinc Oxide (Zinc Oxide) 1 applic TIDPRN PRN TOPIC around g tube site 11/03/18 13:00 12/03/18 12:59 Laboratory Tests 11/07/18 04:00: White Blood Count 7.4, Red Blood Count 4.32L, Hemoglobin 12.5L, Hematocrit 39.2L , Mean Corpuscular Volume 91, Mean Corpuscular Hemoglobin 28.9, Mean Corpuscular Hemoglobin Concent 31.9L, Red Cell Distribution Width 19.0H, Platelet Count 371, Mean Platelet Volume 5.6L, Neutrophils (%) (Auto) 84.8H, Lymphocytes (%) (Auto) 12.2L, Monocytes (%) (Auto) 2.8, Eosinophils (%) (Auto) 0.0, Basophils (%) (Auto) 0.2, Sodium Level 139, Potassium Level 3.5, Chloride Level 105, Carbon Dioxide Level 25, Anion Gap 9, Blood Urea Nitrogen 10, Creatinine 0.6, Estimat Glomerular Filtration Rate > 60, Glucose Level 229H, Calcium Level 8.6, Phosphorus Level 2.3L, Magnesium Level 1.8 11/07/18 08:30: Arterial Blood pH 7.482H, Arterial Blood Partial Pressure CO2 30.2L, Arterial Blood Partial Pressure O2 123.5H, Arterial Blood HCO3 22.1, Arterial Blood Oxygen Saturation 98.3, Arterial Blood Base Excess -0.5, Kem Test Positive Height (Feet): 5 Height (Inches): 4.00 Weight (Pounds): 191 Objective exam stable SP tube in place, urine remains blood-tinged Ascencion Palomino MD Nov 07, 2018 20:17
[2018-11-07] MEDS: Dyna-Hex 2% Top Sol 2oz TOPIC SCH (20:37)
[2018-11-07] MEDS: Miralax 17gm pkt GT SCH (20:39)
--- NOTE | 2018-11-07 21:38 | Internal Med Progress Note ---
Subjective Physician Name Bruno Ko Attending Physician Bruno Ko MD Current Medications Medications (Trade) Dose Ordered Sig/Vicenta Route PRN Reason Start Time Stop Time Status Last Admin Dose Admin Acetaminophen (Tylenol) 650 mg Q4H PRN ORAL fever 11/03/18 12:30 11/27/18 12:29 11/05/18 19:18 Acetaminophen (Tylenol) 650 mg Q4H PRN RECTAL Mild Pain (Pain Scale 1-3) 11/03/18 14:45 11/28/18 10:44 Chlorhexidine Gluconate (Caitlyn-Hex 2%) 1 applic DAILY@1999 TOPIC 11/03/18 20:00 11/28/18 19:59 11/07/18 20:37 Colistimethate Sodium (Colistin *inhalation use only*) 150 mg Q12HR@, INH 11/06/18 22:00 11/13/18 21:59 11/07/18 09:12 Dextrose (Dextrose 50%) 25 ml Q30M PRN IV Hypoglycemia 11/03/18 12:30 11/27/18 14:29 Dextrose (Dextrose 50%) 50 ml Q30M PRN IV Hypoglycemia 11/03/18 12:30 11/27/18 14:29 Docusate Sodium (Colace) 100 mg BID GT 11/03/18 18:00 12/03/18 17:59 11/07/18 08:37 Gabapentin (Neurontin) 600 mg Q6HR GT 11/03/18 12:00 11/27/18 17:59 11/07/18 17:41 Heparin Sodium (Porcine) (Heparin 5000 units/ml) 5,000 units EVERY 12 HOURS SUBQ 11/03/18 21:00 11/27/18 20:59 11/07/18 20:43 Levetiracetam 100 ml @ 400 mls/hr Q12HR IVPB 11/03/18 21:00 11/30/18 20:59 11/07/18 20:40 Lorazepam (Ativan 2mg/ml 1ml) 1 mg Q4H PRN IV agitation 11/03/18 12:11 11/10/18 12:10 11/06/18 21:18 Meropenem 1 gm/ Sodium Chloride 55 ml @ 110 mls/hr Q8HR IVPB 11/03/18 14:00 11/13/18 13:59 11/07/18 15:49 Metoclopramide HCl (Reglan) 10 mg Q6H PRN IVP severe nausea 11/03/18 12:11 12/03/18 12:10 Metoprolol Tartrate (Lopressor) 25 mg Q8HR GT 11/03/18 14:00 12/02/18 21:59 11/07/18 15:49 Midodrine (Pro-Amatine) 10 mg EVERY 8 HOURS ORAL 11/04/18 14:00 12/04/18 13:59 11/07/18 15:49 Mineral Oil (Fleet's Mineral Oil Enema) 133 ml EVERY OTHER DAY RECTAL 11/04/18 09:00 11/30/18 08:59 Minocycline HCl (Minocin) 100 mg Q12H ORAL 11/07/18 05:00 11/14/18 04:59 11/07/18 17:41 Morphine Sulfate (Morphine Sulfate) 2 mg Q4H PRN IVP severe Pain (Pain Scale 7-10) 11/03/18 12:12 11/10/18 12:11 Nitroglycerin (Ntg) 0.4 mg Q5M X 3 DOSES PRN SL Prn Chest Pain 11/03/18 12:12 12/03/18 12:11 Norepinephrine Bitartrate 4 mg/ Dextrose 250 ml @ 0 mls/hr Q24H IV 11/03/18 13:00 12/03/18 12:59 11/06/18 19:12 Pantoprazole (Protonix) 40 mg DAILY IV 11/04/18 09:00 11/28/18 08:59 11/07/18 08:37 Polyethylene Glycol (Miralax) 17 gm BEDTIME GT 11/03/18 21:00 12/03/18 20:59 Polyethylene Glycol (Miralax) 17 gm HSPRN PRN GT Constipation 11/03/18 12:12 12/03/18 12:11 Vancomycin HCl (Vanco rx to dose) 1 ea DAILY PRN MISC Per rx protocol 11/06/18 14:00 12/06/18 13:59 Vancomycin HCl 1 gm/Dextrose 275 ml @ 183.708 mls/hr Q12HR@0500,1700 IVPB 11/06/18 17:00 11/11/18 16:59 11/07/18 17:41 Zinc Oxide (Zinc Oxide) 1 applic TIDPRN PRN TOPIC around g tube site 11/03/18 13:00 12/03/18 12:59 Allergies: Coded Allergies: SULFAMETHOXAZOLE (Verified Allergy, Unknown, 10/18/17) TRIMETHOPRIM (Verified Allergy, Unknown, 10/18/17) Subjective awake, alert, responsive, on Vent , in ICU Objective Last Vital Signs Date Time Temp Pulse Resp B/P (MAP) Pulse Ox O2 Delivery O2 Flow Rate FiO2 11/07/18 21:00 80 20 92/50 (64) 100 11/07/18 20:00 Mechanical Ventilator 11/07/18 20:00 28 11/07/18 20:00 98.0 11/05/18 13:50 65.0 Laboratory Tests Test 11/07/18 04:00 11/07/18 08:30 White Blood Count 7.4 K/UL (4.8-10.8) Red Blood Count 4.32 M/UL (4.70-6.10) L Hemoglobin 12.5 G/DL (14.2-18.0) L Hematocrit 39.2 % (42.0-52.0) L Mean Corpuscular Volume 91 FL (80-99) Mean Corpuscular Hemoglobin 28.9 PG (27.0-31.0) Mean Corpuscular Hemoglobin Concent 31.9 G/DL (32.0-36.0) L Red Cell Distribution Width 19.0 % (11.6-14.8) H Platelet Count 371 K/UL (150-450) Mean Platelet Volume 5.6 FL (6.5-10.1) L Neutrophils (%) (Auto) 84.8 % (45.0-75.0) H Lymphocytes (%) (Auto) 12.2 % (20.0-45.0) L Monocytes (%) (Auto) 2.8 % (1.0-10.0) Eosinophils (%) (Auto) 0.0 % (0.0-3.0) Basophils (%) (Auto) 0.2 % (0.0-2.0) Sodium Level 139 MMOL/L (136-145) Potassium Level 3.5 MMOL/L (3.5-5.1) Chloride Level 105 MMOL/L (98-107) Carbon Dioxide Level 25 MMOL/L (21-32) Anion Gap 9 mmol/L (5-15) Blood Urea Nitrogen 10 mg/dL (7-18) Creatinine 0.6 MG/DL (0.55-1.30) Estimat Glomerular Filtration Rate > 60 mL/min (>60) Glucose Level 229 MG/DL (74-106) H Calcium Level 8.6 MG/DL (8.5-10.1) Phosphorus Level 2.3 MG/DL (2.5-4.9) L Magnesium Level 1.8 MG/DL (1.8-2.4) Arterial Blood pH 7.482 (7.350-7.450) Arterial Blood Partial Pressure CO2 30.2 mmHg (35.0-45.0) L Arterial Blood Partial Pressure O2 123.5 mmHg (75.0-100.0) H Arterial Blood HCO3 22.1 mmol/L (22.0-26.0) Arterial Blood Oxygen Saturation 98.3 % (95-100) Arterial Blood Base Excess -0.5 (-2-2) Kem Test Positive Microbiology Date/Time Source Procedure Growth Status 11/05/18 12:15 Blood Blood Culture - Preliminary NO GROWTH AFTER 24 HOURS Resulted 11/05/18 12:15 Blood Blood Culture - Preliminary NO GROWTH AFTER 24 HOURS Resulted Intake and Output 11/06/18 11/07/18 18:59 06:59 Intake Total 1717.458 ml 1206.292 ml Output Total 1645 ml 1400 ml Balance 72.458 ml -193.708 ml IV Total 1277.458 ml 846.292 ml Tube Feeding 330 ml 360 ml Other 110 ml Output Urine Total 1645 ml 1400 ml # Bowel Movements 2 Objective General: No acute distress, awake, responsive, on Vent HEENT: NCAT, sclera anicteric, PERRL, EOMI. Neck: Supple,trach site intact, Lungs: fair inspiratory effort,decrease air at bases, no Wheeze or Rales. Heart: Regular rate and rhythm, normal S1/S2, no murmurs Abdomen: soft, nontender, nondistended. Normoactive bowel sounds. morbid obesity , GJ tube side dressing intact, suprapubic cath intact. Extremities: No Cyanosis , clubbing or edema. Neuro: A&O x 2, Able to move lower extremities slowly, contracted extremities, RUE Piccline Skin: warm, no rash. Assessment/Plan Assessment/Plan 1. JG tube malfunction and leaks, s/p replacement. 2. acute on chronic Respiratory failure. 3. Seizure disorder. 4. Chronic obstructive pulmonary disease. 5. Gastroesophageal reflux disease. 6. Neurogenic bladder. 7. Hypothyroidism. 8. Quadriplegia. 9. Tracheostomy in situ. 10.Thrombocytopenia. 11. Septic shock most likely due to UTI and bacteremia. 12. Proteus Mirabilis ESBL bacteremia. Plan: F/U with ID recommendations Monitor labs and cultures. Abx: Meropenem, PO Minocycline and INH colistin. Levophed drip On Midodrine 10 mg po TID On Metoprolol 25 mg po TID Tolerated tube feeding @ 50 cc/hr. K Phos IV X 1 dose. Bruno Ko MD Nov 07, 2018 21:38
--- NOTE | 2018-11-07 22:00 | NUR ---
NURSE NOTES: reposition and suction sleeping at interval dr holcomb in and seen pt
[2018-11-08] VITALS (47 sets, daily range): BP systolic 80–145; BP diastolic 15–77
--- NOTE | 2018-11-08 | NUR ---
NURSE NOTES: no acute resp distress noted reposition and suction on levo drip 1mcg/min
[2018-11-08] MEDS: Gabapentin 300 MG/6 ML Soln GT SCH ×5 (00:06→23:11)
--- NOTE | 2018-11-08 02:00 | NUR ---
NURSE NOTES: reposition and suction urinary output 60-200/hr
--- NOTE | 2018-11-08 04:00 | NUR ---
NURSE NOTES: complete bed bath oral care reposition and suction
[2018-11-08] MEDS: Minocycline HCl 50mg cap ORAL SCH ×2 (05:33→18:50)
[2018-11-08] MEDS: Meropenem 1 GM in NS 55 ML IVPB SCH ×3 (05:42→21:31)
[2018-11-08] MEDS: Vancomycin 1gm/D5W 275ml IVPB SCH ×4 (05:56→18:50)
[2018-11-08] MEDS: Midodrine 10mg tab ORAL SCH ×3 (06:13→21:31)
[2018-11-08] MEDS: Metoprolol 25mg tab GT SCH (06:15)
--- NOTE | 2018-11-08 06:21 | General Progress Note ---
Assessment/Plan Status: stable Assessment/Plan: (1) Malfunction of jejunostomy tube ICD Codes: K94.13 - Enterostomy malfunction SNOMED: 207854873, 607102457 (2) Hypokalemia ICD Codes: E87.6 - Hypokalemia SNOMED: 58840667 Status: unchanged Status Narrative Discussed with Dr. Lehman. Assessment/Plan CT AP reviewed Thickening of the underdistended urinary bladder is concerning for cystitis. Consider correlation with urinalysis. Moderate bilateral hydroureteronephrosis. Moderate stool in the rectosigmoid colon is suggestive of constipation. Morphologic features of cirrhosis. Cholelithiasis. s/p EGD with GT replacement GTFs per RD GT site care BID/prn Monitor H&H, PRN transfusions turn q2 hours PPI Electrolyte correction bowel regimen follow labs Subjective ROS Limited/Unobtainable: No Allergies: Coded Allergies: SULFAMETHOXAZOLE (Verified Allergy, Unknown, 10/18/17) TRIMETHOPRIM (Verified Allergy, Unknown, 10/18/17) Objective Last 24 Hour Vital Signs Date Time Temp Pulse Resp B/P (MAP) Pulse Ox O2 Delivery O2 Flow Rate FiO2 11/08/18 06:18 125/67 11/08/18 06:15 60 125/67 11/08/18 05:15 64 19 28 11/08/18 05:00 80/56 11/08/18 05:00 62 14 80/15 (36) 94 11/08/18 04:30 61 14 83/46 (58) 100 11/08/18 04:00 Mechanical Ventilator 11/08/18 04:00 66 15 91/57 (68) 98 11/08/18 04:00 95/51 11/08/18 04:00 60 11/08/18 03:32 62 18 28 11/08/18 03:30 63 17 103/54 (70) 98 11/08/18 03:00 68 16 105/62 (76) 100 11/08/18 03:00 107/50 11/08/18 02:30 77 20 88/61 (70) 99 11/08/18 02:00 105/58 11/08/18 02:00 70 19 108/55 (72) 100 11/08/18 01:30 70 19 90/47 (61) 100 11/08/18 01:30 67 18 28 11/08/18 01:00 96/53 11/08/18 01:00 67 16 96/53 (67) 100 11/08/18 00:30 63 16 98/51 (67) 100 11/08/18 00:22 28 11/08/18 00:00 96/52 11/08/18 00:00 63 11/08/18 00:00 Mechanical Ventilator 11/08/18 00:00 98.6 61 15 96/48 (64) 100 11/07/18 23:30 64 18 102/57 (72) 100 11/07/18 23:01 69 21 28 11/07/18 23:00 59 14 114/62 (79) 100 11/07/18 23:00 108/55 11/07/18 22:30 63 14 100 Mechanical Ventilator 28 11/07/18 22:30 61 14 120/62 (81) 100 11/07/18 22:15 68 18 100 Mechanical Ventilator 28 11/07/18 22:00 111/57 11/07/18 22:00 76 20 106/53 (70) 100 11/07/18 21:54 78 108/55 11/07/18 21:30 80 19 94/54 (67) 100 11/07/18 21:25 80 23 28 11/07/18 21:00 80 20 92/50 (64) 100 11/07/18 21:00 91/50 11/07/18 20:30 83 21 103/56 (72) 100 11/07/18 20:00 Mechanical Ventilator 11/07/18 20:00 28 11/07/18 20:00 110/56 11/07/18 20:00 98.0 74 17 102/54 (70) 100 11/07/18 20:00 81 11/07/18 19:39 77 22 28 11/07/18 19:30 71 17 111/61 (78) 100 11/07/18 19:00 112/62 11/07/18 19:00 65 17 105/59 (74) 100 11/07/18 18:45 62 16 112/62 (79) 100 11/07/18 18:30 98.1 60 16 112/61 (78) 100 11/07/18 18:00 59 16 107/67 (80) 100 11/07/18 18:00 60 17 100 11/07/18 17:45 57 19 111/70 (84) 100 11/07/18 17:30 58 15 129/72 (91) 100 11/07/18 17:15 55 17 134/73 (93) 100 11/07/18 17:06 Mechanical Ventilator 11/07/18 17:00 134/73 11/07/18 17:00 55 17 131/69 (89) 100 11/07/18 16:45 53 19 131/69 (89) 100 11/07/18 16:44 56 19 28 11/07/18 16:30 55 17 135/73 (93) 100 11/07/18 16:00 117 11/07/18 16:00 106/59 11/07/18 16:00 28 11/07/18 15:57 98.0 64 18 106/59 (75) 100 11/07/18 15:49 68 108/59 11/07/18 15:00 105/55 11/07/18 14:50 28 11/07/18 14:48 68 21 28 11/07/18 14:45 73 21 114/72 (86) 100 11/07/18 14:30 69 21 109/58 (75) 100 11/07/18 14:15 69 19 97/55 (69) 100 11/07/18 14:00 72 20 104/53 (70) 100 11/07/18 14:00 104/53 11/07/18 13:45 72 19 102/57 (72) 100 11/07/18 13:30 70 20 105/55 (72) 100 11/07/18 13:15 73 20 100/56 (71) 100 11/07/18 13:09 75 20 28 11/07/18 13:00 100/53 11/07/18 13:00 73 18 100/53 (69) 100 11/07/18 12:45 63 16 129/70 (89) 100 11/07/18 12:30 63 18 117/60 (79) 100 11/07/18 12:15 63 17 119/63 (81) 100 11/07/18 12:00 61 11/07/18 12:00 Mechanical Ventilator 11/07/18 12:00 97.8 63 17 123/65 (84) 100 11/07/18 12:00 123/65 11/07/18 12:00 28 11/07/18 11:45 63 16 128/68 (88) 100 11/07/18 11:30 64 17 118/63 (81) 100 11/07/18 11:15 71 21 130/68 (88) 100 11/07/18 11:14 66 18 28 11/07/18 11:00 55 16 78/49 (59) 100 11/07/18 11:00 111/63 11/07/18 10:45 59 18 78/49 (59) 98 11/07/18 10:30 76/45 11/07/18 10:30 60 18 73/45 (54) 98 11/07/18 09:18 63 20 100 Mechanical Ventilator 28 11/07/18 09:12 63 18 100 Mechanical Ventilator 28 11/07/18 09:00 61 17 99/48 (65) 100 11/07/18 08:52 80 23 28 11/07/18 08:52 98 11/07/18 08:00 Mechanical Ventilator 11/07/18 08:00 28 11/07/18 08:00 74 11/07/18 08:00 97.5 66 20 92/44 (60) 100 11/07/18 07:41 72 20 28 11/07/18 07:00 66 20 100/64 (76) 100 11/07/18 07:00 100/64 11/07/18 06:30 69 20 109/66 (80) 100 Intake and Output 11/07/18 11/08/18 19:00 07:00 Intake Total 1191.25 ml 971.25 ml Output Total 1280 ml 1120 ml Balance -88.75 ml -148.75 ml Free Water 100 ml 105 ml IV Total 661.25 ml 196.25 ml Tube Feeding 360 ml 570 ml Blood Product 100 ml Other 70 ml Output Urine Total 1280 ml 1120 ml Other 0 ml # Bowel Movements 1 3 Laboratory Tests 11/07/18 08:30: Arterial Blood pH 7.482H, Arterial Blood Partial Pressure CO2 30.2L, Arterial Blood Partial Pressure O2 123.5H, Arterial Blood HCO3 22.1, Arterial Blood Oxygen Saturation 98.3, Arterial Blood Base Excess -0.5, Kem Test Positive 11/08/18 04:05: Vancomycin Level Trough 16.2H Height (Feet): 5 Height (Inches): 4.00 Weight (Pounds): 191 General Appearance: no apparent distress EENT: normal ENT inspection Neck: supple Cardiovascular: normal rate Respiratory/Chest: decreased breath sounds Abdomen: normal bowel sounds, non tender, soft Extremities: non-tender Kvng Lehman MD Nov 08, 2018 06:21
--- NOTE | 2018-11-08 07:31 | NUR ---
HAND-OFF: Report given to .nilda boswell
--- NOTE | 2018-11-08 07:32 | NUR ---
NURSE NOTES: Received change of shift report from Gold JOSEPH. Pt is asleep, awakens to name/touch, responds by nodding head to yes/no questions. Pt has trach Shiley 6.0 connected to vent with settings AC14, VT500, Peep 5.0, FIO2 28% with O2sat at 100%, and bilateral inspiratory/expiratory rhonchi heard on auscultation. correctional supervising cook displays NSR with heart rate now in the low 60's, while pt is maintained on Levophed drip with current rate at 2mcg/min via right upper arm double lumen PICC line. Weak peripheral pulses noted on palpation with generalized edema. Abdomen is large, round, soft/nontender to touch with active bowel sounds in all quadrants. GJ tube is present on upper quadrant with feeding Osmolyte 1.2 infusing at goal rate of 65ml/hr. Pt is tolerating feeding well with no residual. Suprapubic catheter is in place, draining yellow/mildly cloudy with sediments urine. Condom cath is also in place for urine leak from penis. Skin has optifoam dressing on sacrum, intact/dry. Pt has bilateral upper and lower extremity contracture and is on P200 pressure release mattress. Head of bed at 30 degrees, bed in lowest position, three side rails up and locked. Will continue to monitor pt and follow plan of care per MD orders and protocol.
[2018-11-08 08:22] LABS: BASOPHILS % (AUTO) 0.5 % (0.0-2.0); HEMATOCRIT 39.9 % (42.0-52.0); HEMOGLOBIN 12.7 G/DL (14.2-18.0); LYMPHOCYTES % (AUTO) 35.1 % (20.0-45.0); MEAN CORPUSCULAR VOLUME 91 FL (80-99); MONOCYTES % (AUTO) 10.8 % (1.0-10.0); NEUTROPHILS % (AUTO) 53.6 % (45.0-75.0); PLATELET COUNT 406 K/UL (150-450); RED BLOOD COUNT 4.39 M/UL (4.70-6.10); WHITE BLOOD COUNT 7.7 K/UL (4.8-10.8)
--- NOTE | 2018-11-08 08:30 | NUR ---
NURSE NOTES: Pt is maintained on Levophed at 2mcg/min to maintain SBP above 90. Axillary temp 97.5F. AM meds were administered. Oral care done.
[2018-11-08 08:33] LABS: ALANINE AMINOTRANSFERASE 60 U/L (12-78); ALBUMIN 2.3 G/DL (3.4-5.0); ALBUMIN/GLOBULIN RATIO 0.5 (1.0-2.7); ALKALINE PHOSPHATASE 456 U/L (46-116); ANION GAP 8 mmol/L (5-15); ASPARTATE AMINO TRANSFERASE 83 U/L (15-37); BILIRUBIN,TOTAL 0.9 MG/DL (0.2-1.0); BLOOD UREA NITROGEN 13 mg/dL (7-18); CALCIUM 8.5 MG/DL (8.5-10.1); CARBON DIOXIDE 23 MMOL/L (21-32); CHLORIDE 107 MMOL/L (98-107); CREATININE 0.5 MG/DL (0.55-1.30); POTASSIUM 3.9 MMOL/L (3.5-5.1); SODIUM 138 MMOL/L (136-145)
[2018-11-08] MEDS: Docusate 100mg tablet GT SCH ×2 (08:34→18:00)
[2018-11-08] MEDS: Fleet's Mineral Oil Enema RECTAL SCH (08:35)
[2018-11-08] MEDS: Pantoprazole Inj IV SCH (08:40)
[2018-11-08] MEDS: levETIRAcetam 500mg/NS100ml 100 ML IVPB SCH ×2 (08:40→21:31)
[2018-11-08] MEDS: Heparin 5000 units/ml inj SUBQ SCH ×2 (08:42→21:33)
--- NOTE | 2018-11-08 09:00 | NUR ---
NURSE NOTES: digital imaging technician is at bedside for chest xray. Pt is maintained on Levophed with rate now titrated to 4mcg/min to keep SBP above 90. Pt has been repositioned.
--- NOTE | 2018-11-08 09:34 | Cardiology Progress Note ---
Assessment/Plan Status: stable Assessment/Plan Assessment/Plan Assessment/Plan 1. Tachycardia-resolved d/c lopressor, to wean off levophed 2. Severe hypokalemia. Resolved 3. Dysphagia, status post GJ-tube malfunction. S/P new GJ-tube placement 11/02/18 4. History of respiratory failure, currently off the ventilator, tracheostomy in place 5. Seizure disorder. stable 6. COPD. Continue pulmonary toilet, stable on trach collar 7. Gastroesophageal reflux disease. PPI BID 8. Neurogenic bladder status post suprapubic catheter. Irrigated per urology 9. Hypothyroidism. Continue replacement 10. Quadriplegia. PT/OT 11. Transient hypotension wean levophed Wean midodrine D/c lopressor Subjective Cardiovascular: Reports: no symptoms Respiratory: Reports: no symptoms Gastrointestinal/Abdominal: Reports: no symptoms Genitourinary: Reports: no symptoms Subjective Coverage for Rinku Remains in ICU on trach collar, tolerated feeds, suprapubic cath irrigated, remains tachycardic, BP stable on leveophed - 2 mcg BP 90s Objective Last 24 Hour Vital Signs Date Time Temp Pulse Resp B/P (MAP) Pulse Ox O2 Delivery O2 Flow Rate FiO2 11/08/18 08:30 75 17 132/67 (88) 100 11/08/18 08:15 64 16 116/58 (77) 100 11/08/18 08:09 72 15 84/44 (57) 100 11/08/18 08:00 97.5 72 15 87/44 (58) 100 11/08/18 07:15 71 15 95/44 (61) 100 11/08/18 07:06 68 15 28 11/08/18 07:00 125/54 11/08/18 07:00 70 16 108/56 (73) 100 11/08/18 06:45 58 14 134/74 (94) 100 11/08/18 06:30 58 14 134/74 (94) 100 11/08/18 06:18 125/67 11/08/18 06:15 65 15 126/68 (87) 100 11/08/18 06:15 60 125/67 11/08/18 06:00 126/68 11/08/18 06:00 65 16 125/67 (86) 100 11/08/18 05:45 67 15 110/57 (74) 100 11/08/18 05:30 76 26 109/70 (83) 100 11/08/18 05:15 51 14 89/48 (62) 100 11/08/18 05:15 64 19 28 11/08/18 05:00 80/56 11/08/18 05:00 62 14 80/15 (36) 94 11/08/18 04:30 61 14 83/46 (58) 100 11/08/18 04:00 Mechanical Ventilator 11/08/18 04:00 66 15 91/57 (68) 98 11/08/18 04:00 95/51 11/08/18 04:00 60 11/08/18 03:32 62 18 28 11/08/18 03:30 63 17 103/54 (70) 98 11/08/18 03:00 68 16 105/62 (76) 100 11/08/18 03:00 107/50 11/08/18 02:30 77 20 88/61 (70) 99 11/08/18 02:00 105/58 11/08/18 02:00 70 19 108/55 (72) 100 11/08/18 01:30 70 19 90/47 (61) 100 11/08/18 01:30 67 18 28 11/08/18 01:00 96/53 11/08/18 01:00 67 16 96/53 (67) 100 11/08/18 00:30 63 16 98/51 (67) 100 11/08/18 00:22 28 11/08/18 00:00 96/52 11/08/18 00:00 63 11/08/18 00:00 Mechanical Ventilator 11/08/18 00:00 98.6 61 15 96/48 (64) 100 11/07/18 23:30 64 18 102/57 (72) 100 11/07/18 23:01 69 21 28 11/07/18 23:00 59 14 114/62 (79) 100 11/07/18 23:00 108/55 11/07/18 22:30 63 14 100 Mechanical Ventilator 28 11/07/18 22:30 61 14 120/62 (81) 100 11/07/18 22:15 68 18 100 Mechanical Ventilator 28 11/07/18 22:00 111/57 11/07/18 22:00 76 20 106/53 (70) 100 11/07/18 21:54 78 108/55 11/07/18 21:30 80 19 94/54 (67) 100 11/07/18 21:25 80 23 28 11/07/18 21:00 80 20 92/50 (64) 100 11/07/18 21:00 91/50 11/07/18 20:30 83 21 103/56 (72) 100 11/07/18 20:00 Mechanical Ventilator 11/07/18 20:00 28 11/07/18 20:00 110/56 11/07/18 20:00 98.0 74 17 102/54 (70) 100 11/07/18 20:00 81 11/07/18 19:39 77 22 28 11/07/18 19:30 71 17 111/61 (78) 100 11/07/18 19:00 112/62 11/07/18 19:00 65 17 105/59 (74) 100 11/07/18 18:45 62 16 112/62 (79) 100 11/07/18 18:30 98.1 60 16 112/61 (78) 100 11/07/18 18:00 59 16 107/67 (80) 100 11/07/18 18:00 60 17 100 11/07/18 17:45 57 19 111/70 (84) 100 11/07/18 17:30 58 15 129/72 (91) 100 11/07/18 17:15 55 17 134/73 (93) 100 11/07/18 17:06 Mechanical Ventilator 11/07/18 17:00 134/73 11/07/18 17:00 55 17 131/69 (89) 100 11/07/18 16:45 53 19 131/69 (89) 100 11/07/18 16:44 56 19 28 11/07/18 16:30 55 17 135/73 (93) 100 11/07/18 16:00 117 11/07/18 16:00 106/59 11/07/18 16:00 28 11/07/18 15:57 98.0 64 18 106/59 (75) 100 11/07/18 15:49 68 108/59 11/07/18 15:00 105/55 11/07/18 14:50 28 11/07/18 14:48 68 21 28 11/07/18 14:45 73 21 114/72 (86) 100 11/07/18 14:30 69 21 109/58 (75) 100 11/07/18 14:15 69 19 97/55 (69) 100 11/07/18 14:00 72 20 104/53 (70) 100 11/07/18 14:00 104/53 11/07/18 13:45 72 19 102/57 (72) 100 11/07/18 13:30 70 20 105/55 (72) 100 11/07/18 13:15 73 20 100/56 (71) 100 11/07/18 13:09 75 20 28 11/07/18 13:00 100/53 11/07/18 13:00 73 18 100/53 (69) 100 11/07/18 12:45 63 16 129/70 (89) 100 11/07/18 12:30 63 18 117/60 (79) 100 11/07/18 12:15 63 17 119/63 (81) 100 11/07/18 12:00 61 11/07/18 12:00 Mechanical Ventilator 11/07/18 12:00 97.8 63 17 123/65 (84) 100 11/07/18 12:00 123/65 11/07/18 12:00 28 11/07/18 11:45 63 16 128/68 (88) 100 11/07/18 11:30 64 17 118/63 (81) 100 11/07/18 11:15 71 21 130/68 (88) 100 11/07/18 11:14 66 18 28 11/07/18 11:00 55 16 78/49 (59) 100 11/07/18 11:00 111/63 11/07/18 10:45 59 18 78/49 (59) 98 11/07/18 10:30 76/45 11/07/18 10:30 60 18 73/45 (54) 98 General Appearance: no apparent distress EENT: PERRL/EOMI, normal ENT inspection Neck: non-tender, normal alignment, supple, normal inspection, no JVD Rhythm: NSR Cardiovascular: normal peripheral pulses, normal rate, regular rhythm Respiratory/Chest: chest wall non-tender, lungs clear Abdomen: normal bowel sounds, non tender, soft, no organomegaly Extremities: normal range of motion, non-tender, normal inspection 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: 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0-52.0) L Mean Corpuscular Volume 91 FL (80-99) Mean Corpuscular Hemoglobin 29.1 PG (27.0-31.0) Mean Corpuscular Hemoglobin Concent 32.0 G/DL (32.0-36.0) Red Cell Distribution Width 19.0 % (11.6-14.8) H Platelet Count 406 K/UL (150-450) Mean Platelet Volume 5.6 FL (6.5-10.1) L Neutrophils (%) (Auto) 53.6 % (45.0-75.0) Lymphocytes (%) (Auto) 35.1 % (20.0-45.0) Monocytes (%) (Auto) 10.8 % (1.0-10.0) H Eosinophils (%) (Auto) 0.0 % (0.0-3.0) Basophils (%) (Auto) 0.5 % (0.0-2.0) Sodium Level 138 MMOL/L (136-145) Potassium Level 3.9 MMOL/L (3.5-5.1) Chloride Level 107 MMOL/L (98-107) Carbon Dioxide Level 23 MMOL/L (21-32) Anion Gap 8 mmol/L (5-15) Blood Urea Nitrogen 13 mg/dL (7-18) Creatinine 0.5 MG/DL (0.55-1.30) L Estimat Glomerular Filtration Rate > 60 mL/min (>60) Glucose Level 91 MG/DL (74-106) # Calcium Level 8.5 MG/DL (8.5-10.1) Magnesium Level 1.7 MG/DL (1.8-2.4) L Total Bilirubin 0.9 MG/DL (0.2-1.0) Aspartate Amino Transf (AST/SGOT) 83 U/L (15-37) H Alanine Aminotransferase (ALT/SGPT) 60 U/L (12-78) Alkaline Phosphatase 456 U/L (46-116) H Total Protein 7.0 G/DL (6.4-8.2) Albumin 2.3 G/DL (3.4-5.0) L Globulin 4.7 g/dL Albumin/Globulin Ratio 0.5 (1.0-2.7) L Microbiology Date/Time Source Procedure Growth Status 11/05/18 12:15 Blood Blood Culture - Preliminary NO GROWTH AFTER 48 HOURS Resulted 11/05/18 12:15 Blood Blood Culture - Preliminary NO GROWTH AFTER 48 HOURS Resulted Nikita Reddy MD Nov 08, 2018 09:34
--- NOTE | 2018-11-08 09:57 | Diagnostic Imaging Report ---
EXAM: XR Chest, 1 View CLINICAL HISTORY: F/U TECHNIQUE: Frontal view of the chest. COMPARISON: Chest x-ray dated 11/05/18 FINDINGS: Lungs: Interval resolution of the left lung base opacity. No new consolidation seen. Pleural space: Unremarkable. The costophrenic angles are sharp. No visible pneumothorax. Heart: Unremarkable. No cardiomegaly. Mediastinum: Unremarkable. Bones/joints: Unremarkable. Tubes, lines and devices: Telemetry leads overlie the thorax. Stable positioning of the tracheostomy tube. Unchanged position of a right- sided PICC with catheter tip in the region of the right atrium. IMPRESSION: Interval resolution of the left lung base opacity. No new consolidation seen.
--- NOTE | 2018-11-08 09:59 | NUR ---
RD ASSESSMENT & RECOMMENDATIONS SEE CARE ACTIVITY FOR COMPLETE ASSESSMENT DAILY ESTIMATED NEEDS: Needs based on Critical care, quadriplegia 78kg adj 23-28 kcals/kg 0314-1306 total kcals 1.2-2 g protein/kg 94-156 g total protein 25-30 mL/kg 3245-1881 total fluid mLs NUTRITION DIAGNOSIS: Swallowing difficulty r/t respiratory status as evidenced by pt w/ T-collar, PEJ dep, now ICU on trach to vent status. CURRENT TF:Osmolite 1.2 @ 65 ENTERAL NUTRITION RECOMMENDATIONS: Osmolite 1.2 @ 65ml/hr x 24 hrs + Prosource x1 daily to provide 1560ml, 1872 kcal, 87g +11g pro, 1279 ml free H2o - Maintain Osmolite 1.2 @goal w/ hemodynamic stability. - Flush per MD/ HOB over 30 degrees. On vent status: rec to ADD PROSOURCE x1 DAILY TO BETTER MEET EST NEEDS WHEN STABLE TO FEED @GOAL OF 65ML/HR ADDITIONAL RECOMMENDATIONS: 1) Monitor lytes daily, replete as needed (Phos, mg low) 2) Re-evaluate TF recs if Synthroid re-added (DC'ed at this time) 3) Monitor hemodynamic stability- TF recs as above when unstable 4) Monitor BG on TF's and need for hypoglycemic agent 5) Calibrated bed scale wt- bed w/ added P200 mattress . .
--- NOTE | 2018-11-08 10:00 | NUR ---
NURSE NOTES: Weaning from vent was started by RT at 0940 with settings CPAP PS, FIO2 28%. Pt is tolerating well with stable VS, while maintained on Levophed at current rate of 4mcg/min.
--- NOTE | 2018-11-08 10:06 | Urology Progress Note ---
Assessment/Plan Status: stable Assessment/Plan: 1. Urinary retention with chronic suprapubic tube. 2. Neurogenic bladder. 3. Hydronephrosis, which appears to be chronic. 4. Nephrolithiasis. 5. Cystitis. 6. Hematuria. 7. Probable colonized urine. 8. Sepsis. monitor clinically keep SP tube, last exchanged 10/24 hand irrigated and do PRN position satisfactory, intermittent leakage from penis abx as ordered consider nuclear renal scan f/u on blood cx Subjective Allergies: Coded Allergies: SULFAMETHOXAZOLE (Verified Allergy, Unknown, 10/18/17) TRIMETHOPRIM (Verified Allergy, Unknown, 10/18/17) Subjective some more SP tube output, less penile output per nurse Objective Last 24 Hour Vital Signs Date Time Temp Pulse Resp B/P (MAP) Pulse Ox O2 Delivery O2 Flow Rate FiO2 11/08/18 09:45 76 17 119/65 (83) 100 11/08/18 09:42 83 18 28 11/08/18 09:30 74 19 145/77 (99) 100 11/08/18 09:18 77 16 91/57 (68) 100 11/08/18 09:16 77 18 28 11/08/18 09:15 85 15 84/47 (59) 100 11/08/18 09:00 76 15 91/48 (62) 100 11/08/18 08:30 75 17 132/67 (88) 100 11/08/18 08:15 64 16 116/58 (77) 100 11/08/18 08:09 72 15 84/44 (57) 100 11/08/18 08:00 97.5 72 15 87/44 (58) 100 11/08/18 08:00 28 11/08/18 08:00 Mechanical Ventilator 11/08/18 07:15 71 15 95/44 (61) 100 11/08/18 07:06 68 15 28 11/08/18 07:00 125/54 11/08/18 07:00 70 16 108/56 (73) 100 11/08/18 06:45 58 14 134/74 (94) 100 11/08/18 06:30 58 14 134/74 (94) 100 11/08/18 06:18 125/67 11/08/18 06:15 65 15 126/68 (87) 100 11/08/18 06:15 60 125/67 11/08/18 06:00 126/68 11/08/18 06:00 65 16 125/67 (86) 100 11/08/18 05:45 67 15 110/57 (74) 100 11/08/18 05:30 76 26 109/70 (83) 100 11/08/18 05:15 51 14 89/48 (62) 100 11/08/18 05:15 64 19 28 11/08/18 05:00 80/56 11/08/18 05:00 62 14 80/15 (36) 94 11/08/18 04:30 61 14 83/46 (58) 100 11/08/18 04:00 Mechanical Ventilator 11/08/18 04:00 66 15 91/57 (68) 98 11/08/18 04:00 95/51 11/08/18 04:00 60 11/08/18 03:32 62 18 28 11/08/18 03:30 63 17 103/54 (70) 98 11/08/18 03:00 68 16 105/62 (76) 100 11/08/18 03:00 107/50 11/08/18 02:30 77 20 88/61 (70) 99 11/08/18 02:00 105/58 11/08/18 02:00 70 19 108/55 (72) 100 11/08/18 01:30 70 19 90/47 (61) 100 11/08/18 01:30 67 18 28 11/08/18 01:00 96/53 11/08/18 01:00 67 16 96/53 (67) 100 11/08/18 00:30 63 16 98/51 (67) 100 11/08/18 00:22 28 11/08/18 00:00 96/52 11/08/18 00:00 63 11/08/18 00:00 Mechanical Ventilator 11/08/18 00:00 98.6 61 15 96/48 (64) 100 11/07/18 23:30 64 18 102/57 (72) 100 11/07/18 23:01 69 21 28 11/07/18 23:00 59 14 114/62 (79) 100 11/07/18 23:00 108/55 11/07/18 22:30 63 14 100 Mechanical Ventilator 28 11/07/18 22:30 61 14 120/62 (81) 100 11/07/18 22:15 68 18 100 Mechanical Ventilator 28 11/07/18 22:00 111/57 11/07/18 22:00 76 20 106/53 (70) 100 11/07/18 21:54 78 108/55 11/07/18 21:30 80 19 94/54 (67) 100 11/07/18 21:25 80 23 28 11/07/18 21:00 80 20 92/50 (64) 100 11/07/18 21:00 91/50 11/07/18 20:30 83 21 103/56 (72) 100 11/07/18 20:00 Mechanical Ventilator 11/07/18 20:00 28 11/07/18 20:00 110/56 11/07/18 20:00 98.0 74 17 102/54 (70) 100 11/07/18 20:00 81 11/07/18 19:39 77 22 28 11/07/18 19:30 71 17 111/61 (78) 100 11/07/18 19:00 112/62 11/07/18 19:00 65 17 105/59 (74) 100 11/07/18 18:45 62 16 112/62 (79) 100 11/07/18 18:30 98.1 60 16 112/61 (78) 100 11/07/18 18:00 59 16 107/67 (80) 100 11/07/18 18:00 60 17 100 11/07/18 17:45 57 19 111/70 (84) 100 11/07/18 17:30 58 15 129/72 (91) 100 11/07/18 17:15 55 17 134/73 (93) 100 11/07/18 17:06 Mechanical Ventilator 11/07/18 17:00 134/73 11/07/18 17:00 55 17 131/69 (89) 100 11/07/18 16:45 53 19 131/69 (89) 100 11/07/18 16:44 56 19 28 11/07/18 16:30 55 17 135/73 (93) 100 11/07/18 16:00 117 11/07/18 16:00 106/59 11/07/18 16:00 28 11/07/18 15:57 98.0 64 18 106/59 (75) 100 11/07/18 15:49 68 108/59 11/07/18 15:00 105/55 11/07/18 14:50 28 11/07/18 14:48 68 21 28 11/07/18 14:45 73 21 114/72 (86) 100 11/07/18 14:30 69 21 109/58 (75) 100 11/07/18 14:15 69 19 97/55 (69) 100 11/07/18 14:00 72 20 104/53 (70) 100 11/07/18 14:00 104/53 11/07/18 13:45 72 19 102/57 (72) 100 11/07/18 13:30 70 20 105/55 (72) 100 11/07/18 13:15 73 20 100/56 (71) 100 11/07/18 13:09 75 20 28 11/07/18 13:00 100/53 11/07/18 13:00 73 18 100/53 (69) 100 11/07/18 12:45 63 16 129/70 (89) 100 11/07/18 12:30 63 18 117/60 (79) 100 11/07/18 12:15 63 17 119/63 (81) 100 11/07/18 12:00 61 11/07/18 12:00 Mechanical Ventilator 11/07/18 12:00 97.8 63 17 123/65 (84) 100 11/07/18 12:00 123/65 11/07/18 12:00 28 11/07/18 11:45 63 16 128/68 (88) 100 11/07/18 11:30 64 17 118/63 (81) 100 11/07/18 11:15 71 21 130/68 (88) 100 11/07/18 11:14 66 18 28 11/07/18 11:00 55 16 78/49 (59) 100 11/07/18 11:00 111/63 11/07/18 10:45 59 18 78/49 (59) 98 11/07/18 10:30 76/45 11/07/18 10:30 60 18 73/45 (54) 98 Intake and Output 11/07/18 11/08/18 19:00 07:00 Intake Total 1191.25 ml 1546.25 ml Output Total 1280 ml 1270 ml Balance -88.75 ml 276.25 ml Free Water 100 ml 205 ml IV Total 661.25 ml 541.25 ml Tube Feeding 360 ml 700 ml Blood Product 100 ml Other 70 ml Output Urine Total 1280 ml 1270 ml Other 0 ml # Bowel Movements 1 3 Microbiology Date/Time Source Procedure Growth Status 11/05/18 12:15 Blood Blood Culture - Preliminary NO GROWTH AFTER 48 HOURS Resulted 10/31/18 21:30 Sputum Gram Stain - Final Complete 10/31/18 21:30 Sputum Culture - Final A.baumanii Complx - Mdr Usual Respiratory Nataly Complete 11/03/18 12:40 Urine,Clean Catch Urine Culture - Final Yeast Species Complete 11/01/18 03:00 Abdomen Gram Stain - Final Complete 11/01/18 03:00 Wound Culture - Final A.baumanii Complx - Mdr Wanda Albicans Usual Skin Nataly Complete Current Medications Medications (Trade) Dose Ordered Sig/Vicenta Route PRN Reason Start Time Stop Time Status Last Admin Dose Admin Acetaminophen (Tylenol) 650 mg Q4H PRN ORAL fever 11/03/18 12:30 11/27/18 12:29 11/05/18 19:18 Acetaminophen (Tylenol) 650 mg Q4H PRN RECTAL Mild Pain (Pain Scale 1-3) 11/03/18 14:45 11/28/18 10:44 Chlorhexidine Gluconate (Caitlyn-Hex 2%) 1 applic DAILY@1999 TOPIC 11/03/18 20:00 11/28/18 19:59 11/07/18 20:37 Colistimethate Sodium (Colistin *inhalation use only*) 150 mg Q12HR@10,22 INH 11/06/18 22:00 11/13/18 21:59 11/07/18 22:15 Dextrose (Dextrose 50%) 25 ml Q30M PRN IV Hypoglycemia 11/03/18 12:30 11/27/18 14:29 Dextrose (Dextrose 50%) 50 ml Q30M PRN IV Hypoglycemia 11/03/18 12:30 11/27/18 14:29 Docusate Sodium (Colace) 100 mg BID GT 11/03/18 18:00 12/03/18 17:59 11/07/18 08:37 Gabapentin (Neurontin) 600 mg Q6HR GT 11/03/18 12:00 11/27/18 17:59 11/08/18 05:42 Heparin Sodium (Porcine) (Heparin 5000 units/ml) 5,000 units EVERY 12 HOURS SUBQ 11/03/18 21:00 11/27/18 20:59 11/08/18 08:42 Levetiracetam 100 ml @ 400 mls/hr Q12HR IVPB 11/03/18 21:00 11/30/18 20:59 11/08/18 08:40 Lorazepam (Ativan 2mg/ml 1ml) 1 mg Q4H PRN IV agitation 11/03/18 12:11 11/10/18 12:10 11/06/18 21:18 Meropenem 1 gm/ Sodium Chloride 55 ml @ 110 mls/hr Q8HR IVPB 11/03/18 14:00 11/13/18 13:59 11/08/18 05:42 Metoclopramide HCl (Reglan) 10 mg Q6H PRN IVP severe nausea 11/03/18 12:11 12/03/18 12:10 Midodrine (Pro-Amatine) 10 mg EVERY 8 HOURS ORAL 11/04/18 14:00 12/04/18 13:59 11/08/18 06:13 Mineral Oil (Fleet's Mineral Oil Enema) 133 ml EVERY OTHER DAY RECTAL 11/04/18 09:00 11/30/18 08:59 Minocycline HCl (Minocin) 100 mg Q12H ORAL 11/07/18 05:00 11/14/18 04:59 11/08/18 05:33 Morphine Sulfate (Morphine Sulfate) 2 mg Q4H PRN IVP severe Pain (Pain Scale 7-10) 11/03/18 12:12 11/10/18 12:11 Nitroglycerin (Ntg) 0.4 mg Q5M X 3 DOSES PRN SL Prn Chest Pain 11/03/18 12:12 12/03/18 12:11 Norepinephrine Bitartrate 4 mg/ Dextrose 250 ml @ 0 mls/hr Q24H IV 11/03/18 13:00 12/03/18 12:59 11/08/18 06:18 Pantoprazole (Protonix) 40 mg DAILY IV 11/04/18 09:00 11/28/18 08:59 11/08/18 08:40 Polyethylene Glycol (Miralax) 17 gm BEDTIME GT 11/03/18 21:00 12/03/18 20:59 Polyethylene Glycol (Miralax) 17 gm HSPRN PRN GT Constipation 11/03/18 12:12 12/03/18 12:11 Vancomycin HCl (Vanco rx to dose) 1 ea DAILY PRN MISC Per rx protocol 11/06/18 14:00 12/06/18 13:59 Vancomycin HCl 1 gm/Dextrose 275 ml @ 183.708 mls/hr Q12HR@0500,1700 IVPB 11/06/18 17:00 11/11/18 16:59 11/08/18 05:56 Zinc Oxide (Zinc Oxide) 1 applic TIDPRN PRN TOPIC around g tube site 11/03/18 13:00 12/03/18 12:59 Laboratory Tests 11/08/18 04:05: Vancomycin Level Trough 16.2H 11/08/18 06:30: White Blood Count 7.7, Red Blood Count 4.39L, Hemoglobin 12.7L, Hematocrit 39.9L , Mean Corpuscular Volume 91, Mean Corpuscular Hemoglobin 29.1, Mean Corpuscular Hemoglobin Concent 32.0, Red Cell Distribution Width 19.0H, Platelet Count 406, Mean Platelet Volume 5.6L, Neutrophils (%) (Auto) 53.6, Lymphocytes (%) (Auto) 35.1, Monocytes (%) (Auto) 10.8H, Eosinophils (%) (Auto) 0.0, Basophils (%) (Auto) 0.5, Sodium Level 138, Potassium Level 3.9, Chloride Level 107, Carbon Dioxide Level 23, Anion Gap 8, Blood Urea Nitrogen 13, Creatinine 0.5L, Estimat Glomerular Filtration Rate > 60, Glucose Level 91#, Calcium Level 8.5, Magnesium Level 1.7L, Total Bilirubin 0.9, Aspartate Amino Transf (AST/SGOT) 83H, Alanine Aminotransferase (ALT/SGPT) 60, Alkaline Phosphatase 456H, Total Protein 7.0, Albumin 2.3L, Globulin 4.7, Albumin/ Globulin Ratio 0.5L Height (Feet): 5 Height (Inches): 4.00 Weight (Pounds): 210 Objective exam stable SP tube in place, urine remains blood-tinged Ascencion Palomino MD Nov 08, 2018 10:06
[2018-11-08] MEDS: Colistin for inhalation INH SCH ×2 (10:26→21:26)
--- NOTE | 2018-11-08 11:00 | NUR ---
NURSE NOTES: Per RT, pt did not meet weaning criteria due to NIF -12. Pt was placed back on previous AC vent settings as ordered. Pt currently remains on Levophed at 4mcg/min to maintain SBP above 90.
--- NOTE | 2018-11-08 12:00 | NUR ---
NURSE NOTES: Pt is awake, watching TV in no apparent distress, denies pain. Pt is maintained on vent settings AC14, VT500, Peep 5.0, FIO2 28% with O2sat at 100%. monitoring engineer displays NSR with heart rate now in the 80's. Pt remains afebrile with T 98.6F axillary. Tolerating GT feeding well at goal rate of 65 with zero residual. Dietrich catheter continues to drain yellow urine with sediments at an hourly rate of 70ml. Pt is maintained on Levophed drip with current rate of 4mcg/min to maintain SBP above 90. Oral care done.
--- NOTE | 2018-11-08 12:01 | Nephrology Progress Note ---
Assessment/Plan Problem List: (1) Hypokalemia (2) Malfunction of gastrostomy tube (3) Malfunction of jejunostomy tube (4) Seizures Assessment Sever hypokalemia Low mag other conditions; 1. JG tube malfunction and leaks. 2. Respiratory failure. 3. Seizure disorder. 4. Chronic obstructive pulmonary disease. 5. Gastroesophageal reflux disease. 6. Neurogenic bladder. 7. Hypothyroidism. 8. Quadriplegia. 9. Tracheostomy in situ. 10.Thrombocytopenia. Plan BP support Vigorous K supplement IV Phos and Mag supplement as needed waiting for GT functionality ! ( Per GI) Monitor lytes and renal parameters per orders Subjective ROS Limited/Unobtainable: Yes Objective Objective Last 24 Hour Vital Signs Date Time Temp Pulse Resp B/P (MAP) Pulse Ox O2 Delivery O2 Flow Rate FiO2 11/08/18 11:28 86 20 28 11/08/18 11:00 86 21 127/64 (85) 100 11/08/18 11:00 127/71 11/08/18 10:36 83 17 100 Mechanical Ventilator 28 11/08/18 10:26 78 18 100 Mechanical Ventilator 28 11/08/18 10:00 121/65 11/08/18 09:45 76 17 119/65 (83) 100 11/08/18 09:45 100 11/08/18 09:42 83 18 28 11/08/18 09:30 74 19 145/77 (99) 100 11/08/18 09:18 77 16 91/57 (68) 100 11/08/18 09:16 77 18 28 11/08/18 09:15 85 15 84/47 (59) 100 11/08/18 09:00 76 15 91/48 (62) 100 11/08/18 09:00 91/48 11/08/18 08:40 97/53 11/08/18 08:30 75 17 132/67 (88) 100 11/08/18 08:15 64 16 116/58 (77) 100 11/08/18 08:09 72 15 84/44 (57) 100 11/08/18 08:00 97.5 72 15 87/44 (58) 100 11/08/18 08:00 67 11/08/18 08:00 28 11/08/18 08:00 84/44 11/08/18 08:00 Mechanical Ventilator 11/08/18 07:15 71 15 95/44 (61) 100 11/08/18 07:06 68 15 28 11/08/18 07:00 125/54 11/08/18 07:00 70 16 108/56 (73) 100 11/08/18 06:45 58 14 134/74 (94) 100 11/08/18 06:30 58 14 134/74 (94) 100 11/08/18 06:18 125/67 11/08/18 06:15 65 15 126/68 (87) 100 11/08/18 06:15 60 125/67 11/08/18 06:00 126/68 11/08/18 06:00 65 16 125/67 (86) 100 11/08/18 05:45 67 15 110/57 (74) 100 11/08/18 05:30 76 26 109/70 (83) 100 11/08/18 05:15 51 14 89/48 (62) 100 11/08/18 05:15 64 19 28 11/08/18 05:00 80/56 11/08/18 05:00 62 14 80/15 (36) 94 11/08/18 04:30 61 14 83/46 (58) 100 11/08/18 04:00 Mechanical Ventilator 11/08/18 04:00 66 15 91/57 (68) 98 11/08/18 04:00 95/51 11/08/18 04:00 60 11/08/18 03:32 62 18 28 11/08/18 03:30 63 17 103/54 (70) 98 11/08/18 03:00 68 16 105/62 (76) 100 11/08/18 03:00 107/50 11/08/18 02:30 77 20 88/61 (70) 99 11/08/18 02:00 105/58 11/08/18 02:00 70 19 108/55 (72) 100 11/08/18 01:30 70 19 90/47 (61) 100 11/08/18 01:30 67 18 28 11/08/18 01:00 96/53 18 01:00 67 16 96/53 (67) 100 11/08/18 00:30 63 16 98/51 (67) 100 11/08/18 00:22 28 11/08/18 00:00 96/52 11/08/18 00:00 63 11/08/18 00:00 Mechanical Ventilator 11/08/18 00:00 98.6 61 15 96/48 (64) 100 11/07/18 23:30 64 18 102/57 (72) 100 11/07/18 23:01 69 21 28 11/07/18 23:00 59 14 114/62 (79) 100 11/07/18 23:00 108/55 11/07/18 22:30 63 14 100 Mechanical Ventilator 28 11/07/18 22:30 61 14 120/62 (81) 100 11/07/18 22:15 68 18 100 Mechanical Ventilator 28 11/07/18 22:00 111/57 11/07/18 22:00 76 20 106/53 (70) 100 11/07/18 21:54 78 108/55 11/07/18 21:30 80 19 94/54 (67) 100 11/07/18 21:25 80 23 28 11/07/18 21:00 80 20 92/50 (64) 100 11/07/18 21:00 91/50 11/07/18 20:30 83 21 103/56 (72) 100 11/07/18 20:00 Mechanical Ventilator 11/07/18 20:00 28 11/07/18 20:00 110/56 11/07/18 20:00 98.0 74 17 102/54 (70) 100 11/07/18 20:00 81 11/07/18 19:39 77 22 28 11/07/18 19:30 71 17 111/61 (78) 100 11/07/18 19:00 112/62 11/07/18 19:00 65 17 105/59 (74) 100 11/07/18 18:45 62 16 112/62 (79) 100 11/07/18 18:30 98.1 60 16 112/61 (78) 100 11/07/18 18:00 59 16 107/67 (80) 100 11/07/18 18:00 60 17 100 11/07/18 17:45 57 19 111/70 (84) 100 11/07/18 17:30 58 15 129/72 (91) 100 11/07/18 17:15 55 17 134/73 (93) 100 11/07/18 17:06 Mechanical Ventilator 11/07/18 17:00 134/73 11/07/18 17:00 55 17 131/69 (89) 100 11/07/18 16:45 53 19 131/69 (89) 100 11/07/18 16:44 56 19 28 11/07/18 16:30 55 17 135/73 (93) 100 11/07/18 16:00 117 11/07/18 16:00 106/59 11/07/18 16:00 28 11/07/18 15:57 98.0 64 18 106/59 (75) 100 11/07/18 15:49 68 108/59 11/07/18 15:00 105/55 11/07/18 14:50 28 11/07/18 14:48 68 21 28 11/07/18 14:45 73 21 114/72 (86) 100 11/07/18 14:30 69 21 109/58 (75) 100 11/07/18 14:15 69 19 97/55 (69) 100 11/07/18 14:00 72 20 104/53 (70) 100 11/07/18 14:00 104/53 11/07/18 13:45 72 19 102/57 (72) 100 11/07/18 13:30 70 20 105/55 (72) 100 11/07/18 13:15 73 20 100/56 (71) 100 11/07/18 13:09 75 20 28 11/07/18 13:00 100/53 11/07/18 13:00 73 18 100/53 (69) 100 11/07/18 12:45 63 16 129/70 (89) 100 11/07/18 12:30 63 18 117/60 (79) 100 11/07/18 12:15 63 17 119/63 (81) 100 Intake and Output 11/07/18 11/08/18 19:00 07:00 Intake Total 1191.25 ml 1546.25 ml Output Total 1280 ml 1270 ml Balance -88.75 ml 276.25 ml Free Water 100 ml 205 ml IV Total 661.25 ml 541.25 ml Tube Feeding 360 ml 700 ml Blood Product 100 ml Other 70 ml Output Urine Total 1280 ml 1270 ml Other 0 ml # Bowel Movements 1 3 Laboratory Tests 11/08/18 04:05: Vancomycin Level Trough 16.2H 11/08/18 06:30: White Blood Count 7.7, Red Blood Count 4.39L, Hemoglobin 12.7L, Hematocrit 39.9L , Mean Corpuscular Volume 91, Mean Corpuscular Hemoglobin 29.1, Mean Corpuscular Hemoglobin Concent 32.0, Red Cell Distribution Width 19.0H, Platelet Count 406, Mean Platelet Volume 5.6L, Neutrophils (%) (Auto) 53.6, Lymphocytes (%) (Auto) 35.1, Monocytes (%) (Auto) 10.8H, Eosinophils (%) (Auto) 0.0, Basophils (%) (Auto) 0.5, Sodium Level 138, Potassium Level 3.9, Chloride Level 107, Carbon Dioxide Level 23, Anion Gap 8, Blood Urea Nitrogen 13, Creatinine 0.5L, Estimat Glomerular Filtration Rate > 60, Glucose Level 91#, Calcium Level 8.5, Magnesium Level 1.7L, Total Bilirubin 0.9, Aspartate Amino Transf (AST/SGOT) 83H, Alanine Aminotransferase (ALT/SGPT) 60, Alkaline Phosphatase 456H, Total Protein 7.0, Albumin 2.3L, Globulin 4.7, Albumin/ Globulin Ratio 0.5L Height (Feet): 5 Height (Inches): 4.00 Weight (Pounds): 210 General Appearance: other - trach to O2 Cardiovascular: normal rate Respiratory/Chest: decreased breath sounds Abdomen: distended Sudhakar Silverman MD Nov 08, 2018 12:01
--- NOTE | 2018-11-08 12:20 | NUR ---
NURSE NOTES: Order noted for Mag replacement 4gm total via IV for blood level of 1.7 from AM's labs. First bag 1gm is being infused currently.
--- NOTE | 2018-11-08 14:30 | NUR ---
NURSE NOTES: Pt is placed back on Lopressor 12.5mg BID per Dr Ko. Pt is currently maintained on Levophed 4mcg/min to keep SBP above 90. Pt is resting in no apparent distress.
--- NOTE | 2018-11-08 14:47 | Pulmonolgy Critical Care Note ---
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 Respiratory: monitor respiratory rate, adjust VT, FIO2,, wean in AM Cardiac: continue pressors Renal: F/U I&O, keep IV fluid Infectious Disease: continue antibiotics Gastrointestinal: hold feedings Endocrine: monitor blood sugar, check HgA1C Neurologic: PRN Ativan, PRN Morphine Critical Care - Objective Vital Signs Noted Status: awake, sedated Condition: grave Neck: full ROM Heart: HR/BP stable Abdomen: soft, feeding tube Extremities: edema Micro: Microbiology Date/Time Source Procedure Growth Status 11/03/18 12:40 Urine,Clean Catch Urine Culture - Final Yeast Species Complete Critical Care - Subjective ROS Limited/Unobtainable: Yes Condition: critical FI02: 28 Sputum Amount: Moderate Fluids: KVO Drips: levophed Tube Feeding Amount: 65 Laboratory Tests Noted CXR: Infiltrates improved Critical Care - Objective Last 24 Hour Vital Signs Date Time Temp Pulse Resp B/P (MAP) Pulse Ox O2 Delivery O2 Flow Rate FiO2 11/08/18 14:30 75 16 125/65 (85) 100 11/08/18 14:15 85 17 102/56 (71) 100 11/08/18 14:00 86 16 96/51 (66) 100 11/08/18 13:36 87 19 28 11/08/18 13:00 83 17 102/54 (70) 100 11/08/18 13:00 102/54 11/08/18 12:00 81 11/08/18 12:00 98.6 81 16 102/61 (75) 100 11/08/18 12:00 28 11/08/18 12:00 102/61 11/08/18 12:00 Mechanical Ventilator 11/08/18 11:28 86 20 28 11/08/18 11:00 86 21 127/64 (85) 100 11/08/18 11:00 127/71 11/08/18 10:36 83 17 100 Mechanical Ventilator 28 11/08/18 10:26 78 18 100 Mechanical Ventilator 28 8/18/19 10:00 121/65 11/08/18 09:45 76 17 119/65 (83) 100 11/08/18 09:45 100 11/08/18 09:42 83 18 28 11/08/18 09:30 74 19 145/77 (99) 100 11/08/18 09:18 77 16 91/57 (68) 100 11/08/18 09:16 77 18 28 11/08/18 09:15 85 15 84/47 (59) 100 11/08/18 09:00 76 15 91/48 (62) 100 11/08/18 09:00 91/48 11/08/18 08:40 97/53 11/08/18 08:30 75 17 132/67 (88) 100 11/08/18 08:15 64 16 116/58 (77) 100 11/08/18 08:09 72 15 84/44 (57) 100 11/08/18 08:00 97.5 72 15 87/44 (58) 100 11/08/18 08:00 67 11/08/18 08:00 28 11/08/18 08:00 84/44 11/08/18 08:00 Mechanical Ventilator 11/08/18 07:15 71 15 95/44 (61) 100 11/08/18 07:06 68 15 28 11/08/18 07:00 125/54 11/08/18 07:00 70 16 108/56 (73) 100 11/08/18 06:45 58 14 134/74 (94) 100 11/08/18 06:30 58 14 134/74 (94) 100 11/08/18 06:18 125/67 11/08/18 06:15 65 15 126/68 (87) 100 11/08/18 06:15 60 125/67 11/08/18 06:00 126/68 11/08/18 06:00 65 16 125/67 (86) 100 11/08/18 05:45 67 15 110/57 (74) 100 11/08/18 05:30 76 26 109/70 (83) 100 11/08/18 05:15 51 14 89/48 (62) 100 11/08/18 05:15 64 19 28 11/08/18 05:00 80/56 11/08/18 05:00 62 14 80/15 (36) 94 11/08/18 04:30 61 14 83/46 (58) 100 11/08/18 04:00 Mechanical Ventilator 11/08/18 04:00 66 15 91/57 (68) 98 11/08/18 04:00 95/51 11/08/18 04:00 60 11/08/18 03:32 62 18 28 11/08/18 03:30 63 17 103/54 (70) 98 11/08/18 03:00 68 16 105/62 (76) 100 11/08/18 03:00 107/50 11/08/18 02:30 77 20 88/61 (70) 99 11/08/18 02:00 105/58 11/08/18 02:00 70 19 108/55 (72) 100 11/08/18 01:30 70 19 90/47 (61) 100 11/08/18 01:30 67 18 28 11/08/18 01:00 96/53 11/08/18 01:00 67 16 96/53 (67) 100 11/08/18 00:30 63 16 98/51 (67) 100 11/08/18 00:22 28 11/08/18 00:00 96/52 11/08/18 00:00 63 11/08/18 00:00 Mechanical Ventilator 11/08/18 00:00 98.6 61 15 96/48 (64) 100 11/07/18 23:30 64 18 102/57 (72) 100 11/07/18 23:01 69 21 28 11/07/18 23:00 59 14 114/62 (79) 100 11/07/18 23:00 108/55 11/07/18 22:30 63 14 100 Mechanical Ventilator 28 11/07/18 22:30 61 14 120/62 (81) 100 11/07/18 22:15 68 18 100 Mechanical Ventilator 28 11/07/18 22:00 111/57 11/07/18 22:00 76 20 106/53 (70) 100 11/07/18 21:54 78 108/55 11/07/18 21:30 80 19 94/54 (67) 100 11/07/18 21:25 80 23 28 11/07/18 21:00 80 20 92/50 (64) 100 11/07/18 21:00 91/50 11/07/18 20:30 83 21 103/56 (72) 100 11/07/18 20:00 Mechanical Ventilator 11/07/18 20:00 28 11/07/18 20:00 110/56 11/07/18 20:00 98.0 74 17 102/54 (70) 100 11/07/18 20:00 81 11/07/18 19:39 77 22 28 11/07/18 19:30 71 17 111/61 (78) 100 11/07/18 19:00 112/62 11/07/18 19:00 65 17 105/59 (74) 100 11/07/18 18:45 62 16 112/62 (79) 100 11/07/18 18:30 98.1 60 16 112/61 (78) 100 11/07/18 18:00 59 16 107/67 (80) 100 11/07/18 18:00 60 17 100 11/07/18 17:45 57 19 111/70 (84) 100 11/07/18 17:30 58 15 129/72 (91) 100 11/07/18 17:15 55 17 134/73 (93) 100 11/07/18 17:06 Mechanical Ventilator 11/07/18 17:00 134/73 11/07/18 17:00 55 17 131/69 (89) 100 11/07/18 16:45 53 19 131/69 (89) 100 11/07/18 16:44 56 19 28 11/07/18 16:30 55 17 135/73 (93) 100 11/07/18 16:00 117 11/07/18 16:00 106/59 11/07/18 16:00 28 11/07/18 15:57 98.0 64 18 106/59 (75) 100 11/07/18 15:49 68 108/59 11/07/18 15:00 105/55 11/07/18 14:50 28 11/07/18 14:48 68 21 28 Critical Care - Subjective ROS Limited/Unobtainable: No Condition: stable FI02: 28 Vent Support Breath Rate: 14 Vent Support Mode: AC Vent Tidal Volume: 500 Sputum Amount: Moderate PEEP: 5.0 PIP: 18 Tube Feeding Amount: 65 I&O: Intake and Output 11/07/18 11/08/18 19:00 07:00 Intake Total 1191.25 ml 1546.25 ml Output Total 1280 ml 1270 ml Balance -88.75 ml 276.25 ml Free Water 100 ml 205 ml IV Total 661.25 ml 541.25 ml Tube Feeding 360 ml 700 ml Blood Product 100 ml Other 70 ml Output Urine Total 1280 ml 1270 ml Other 0 ml # Bowel Movements 1 3 Nikita Beltre MD Nov 08, 2018 14:47
--- NOTE | 2018-11-08 14:59 | Internal Med Progress Note ---
Subjective Physician Name Bruno Ko Attending Physician Bruno Ko MD Current Medications Medications (Trade) Dose Ordered Sig/Vicenta Route PRN Reason Start Time Stop Time Status Last Admin Dose Admin Acetaminophen (Tylenol) 650 mg Q4H PRN ORAL fever 11/03/18 12:30 11/27/18 12:29 11/05/18 19:18 Acetaminophen (Tylenol) 650 mg Q4H PRN RECTAL Mild Pain (Pain Scale 1-3) 11/03/18 14:45 11/28/18 10:44 Chlorhexidine Gluconate (Caitlyn-Hex 2%) 1 applic DAILY@1999 TOPIC 11/03/18 20:00 11/28/18 19:59 11/07/18 20:37 Colistimethate Sodium (Colistin *inhalation use only*) 150 mg Q12HR@ INH 11/06/18 22:00 11/13/18 21:59 11/08/18 10:26 Dextrose (Dextrose 50%) 25 ml Q30M PRN IV Hypoglycemia 11/03/18 12:30 11/27/18 14:29 Dextrose (Dextrose 50%) 50 ml Q30M PRN IV Hypoglycemia 11/03/18 12:30 11/27/18 14:29 Docusate Sodium (Colace) 100 mg BID GT 11/03/18 18:00 12/03/18 17:59 11/07/18 08:37 Gabapentin (Neurontin) 600 mg Q6HR GT 11/03/18 12:00 11/27/18 17:59 11/08/18 11:32 Heparin Sodium (Porcine) (Heparin 5000 units/ml) 5,000 units EVERY 12 HOURS SUBQ 11/03/18 21:00 11/27/18 20:59 11/08/18 08:42 Levetiracetam 100 ml @ 400 mls/hr Q12HR IVPB 11/03/18 21:00 11/30/18 20:59 11/08/18 08:40 Lorazepam (Ativan 2mg/ml 1ml) 1 mg Q4H PRN IV agitation 11/03/18 12:11 11/10/18 12:10 11/06/18 21:18 Magnesium Sulfate 100 ml @ 100 mls/hr Q1H IVPB 11/08/18 12:00 11/08/18 15:59 11/08/18 14:04 Meropenem 1 gm/ Sodium Chloride 55 ml @ 110 mls/hr Q8HR IVPB 11/03/18 14:00 11/13/18 13:59 11/08/18 13:01 Metoclopramide HCl (Reglan) 10 mg Q6H PRN IVP severe nausea 11/03/18 12:11 12/03/18 12:10 Metoprolol Tartrate (Lopressor) 12.5 mg Q12HR ORAL 11/08/18 21:00 12/08/18 20:59 Midodrine (Pro-Amatine) 10 mg EVERY 8 HOURS ORAL 11/04/18 14:00 12/04/18 13:59 11/08/18 14:05 Mineral Oil (Fleet's Mineral Oil Enema) 133 ml EVERY OTHER DAY RECTAL 11/04/18 09:00 11/30/18 08:59 Minocycline HCl (Minocin) 100 mg Q12H ORAL 11/07/18 05:00 11/14/18 04:59 11/08/18 05:33 Morphine Sulfate (Morphine Sulfate) 2 mg Q4H PRN IVP severe Pain (Pain Scale 7-10) 11/03/18 12:12 11/10/18 12:11 Nitroglycerin (Ntg) 0.4 mg Q5M X 3 DOSES PRN SL Prn Chest Pain 11/03/18 12:12 12/03/18 12:11 Norepinephrine Bitartrate 4 mg/ Dextrose 250 ml @ 0 mls/hr Q24H IV 11/03/18 13:00 12/03/18 12:59 11/08/18 06:18 Pantoprazole (Protonix) 40 mg DAILY IV 11/04/18 09:00 11/28/18 08:59 11/08/18 08:40 Polyethylene Glycol (Miralax) 17 gm BEDTIME GT 11/03/18 21:00 12/03/18 20:59 Polyethylene Glycol (Miralax) 17 gm HSPRN PRN GT Constipation 11/03/18 12:12 12/03/18 12:11 Vancomycin HCl (Vanco rx to dose) 1 ea DAILY PRN MISC Per rx protocol 11/06/18 14:00 12/06/18 13:59 Vancomycin HCl 1 gm/Dextrose 275 ml @ 183.708 mls/hr Q12HR@0500,1700 IVPB 11/06/18 17:00 11/11/18 16:59 11/08/18 05:56 Zinc Oxide (Zinc Oxide) 1 applic TIDPRN PRN TOPIC around g tube site 11/03/18 13:00 12/03/18 12:59 Allergies: Coded Allergies: SULFAMETHOXAZOLE (Verified Allergy, Unknown, 10/18/17) TRIMETHOPRIM (Verified Allergy, Unknown, 10/18/17) Subjective awake, alert, responsive, on Vent , in ICU Objective Last Vital Signs Date Time Temp Pulse Resp B/P (MAP) Pulse Ox O2 Delivery O2 Flow Rate FiO2 11/08/18 14:30 75 16 125/65 (85) 100 11/08/18 13:36 28 11/08/18 12:00 98.6 11/08/18 12:00 Mechanical Ventilator 11/05/18 13:50 65.0 Laboratory Tests Test 11/08/18 04:05 11/08/18 06:30 Vancomycin Level Trough 16.2 ug/mL (5.0-12.0) H White Blood Count 7.7 K/UL (4.8-10.8) Red Blood Count 4.39 M/UL (4.70-6.10) L Hemoglobin 12.7 G/DL (14.2-18.0) L Hematocrit 39.9 % (42.0-52.0) L Mean Corpuscular Volume 91 FL (80-99) Mean Corpuscular Hemoglobin 29.1 PG (27.0-31.0) Mean Corpuscular Hemoglobin Concent 32.0 G/DL (32.0-36.0) Red Cell Distribution Width 19.0 % (11.6-14.8) H Platelet Count 406 K/UL (150-450) Mean Platelet Volume 5.6 FL (6.5-10.1) L Neutrophils (%) (Auto) 53.6 % (45.0-75.0) Lymphocytes (%) (Auto) 35.1 % (20.0-45.0) Monocytes (%) (Auto) 10.8 % (1.0-10.0) H Eosinophils (%) (Auto) 0.0 % (0.0-3.0) Basophils (%) (Auto) 0.5 % (0.0-2.0) Sodium Level 138 MMOL/L (136-145) Potassium Level 3.9 MMOL/L (3.5-5.1) Chloride Level 107 MMOL/L (98-107) Carbon Dioxide Level 23 MMOL/L (21-32) Anion Gap 8 mmol/L (5-15) Blood Urea Nitrogen 13 mg/dL (7-18) Creatinine 0.5 MG/DL (0.55-1.30) L Estimat Glomerular Filtration Rate > 60 mL/min (>60) Glucose Level 91 MG/DL (74-106) # Calcium Level 8.5 MG/DL (8.5-10.1) Magnesium Level 1.7 MG/DL (1.8-2.4) L Total Bilirubin 0.9 MG/DL (0.2-1.0) Aspartate Amino Transf (AST/SGOT) 83 U/L (15-37) H Alanine Aminotransferase (ALT/SGPT) 60 U/L (12-78) Alkaline Phosphatase 456 U/L (46-116) H Total Protein 7.0 G/DL (6.4-8.2) Albumin 2.3 G/DL (3.4-5.0) L Globulin 4.7 g/dL Albumin/Globulin Ratio 0.5 (1.0-2.7) L Intake and Output 11/07/18 11/08/18 19:00 07:00 Intake Total 1191.25 ml 1546.25 ml Output Total 1280 ml 1270 ml Balance -88.75 ml 276.25 ml Free Water 100 ml 205 ml IV Total 661.25 ml 541.25 ml Tube Feeding 360 ml 700 ml Blood Product 100 ml Other 70 ml Output Urine Total 1280 ml 1270 ml Other 0 ml # Bowel Movements 1 3 Objective General: No acute distress, awake, responsive, on Vent HEENT: NCAT, sclera anicteric, PERRL, EOMI. Neck: Supple,trach site intact, Lungs: fair inspiratory effort,decrease air at bases, no Wheeze or Rales. Heart: Regular rate and rhythm, normal S1/S2, no murmurs Abdomen: soft, nontender, nondistended. Normoactive bowel sounds. morbid obesity , GJ tube side dressing intact, : suprapubic cath intact, and Dietrich cath. Extremities: No Cyanosis , clubbing or edema. Neuro: A&O x 2, Able to move lower extremities slowly, contracted extremities, RUE Piccline Skin: warm, no rash. Assessment/Plan Assessment/Plan 1. JG tube malfunction and leaks, s/p replacement. 2. acute on chronic Respiratory failure. 3. Seizure disorder. 4. Chronic obstructive pulmonary disease. 5. Gastroesophageal reflux disease. 6. Neurogenic bladder. 7. Hypothyroidism. 8. Quadriplegia. 9. Tracheostomy in situ. 10.Thrombocytopenia. 11. Septic shock most likely due to UTI and bacteremia. 12. Proteus Mirabilis ESBL bacteremia. Plan: F/U with ID recommendations Monitor labs and cultures. Abx: Meropenem, Vanco IV, Minocycline Po and INH colistin. Levophed drip On Midodrine 10 mg po TID decrease Metoprolol 12.5 mg po BID Tolerated tube feeding @ 65 cc/hr. Mg IV Bruno Ko MD Nov 08, 2018 14:59
--- NOTE | 2018-11-08 15:30 | NUR ---
[employer] SI: HYPOTENSION, CHRONIC RESP FAILURE, HYPOMAGENSIUM VS: BP: 90/53 HR: 96 RR 20 02 Sat 100% (MECH-VENT FIO2 - 28) T: 98.9 RBC 4.39 HGB 12.7 HCT 39.9 CREATININE 0.5 MAGNESIUM 1.7 AST 83 ALKAPHOS 456 ALBUMIN 2.3 IS: MAGNESIUM SULFATE IVPB MINOCIN ORAL COLISTIN INH VANCOMYCIN IVPB MIDRODRINE ORAL PROTONIX IV LEVETIRACETAM IVPB HEPARIN SUBQ DYNAHEX TOPIC MEROPENUM IVPB NOREPINEPHRINE BITARTRATE IV NEURONTIN GT ICU STATUS
--- NOTE | 2018-11-08 16:00 | NUR ---
NURSE NOTES: Pt was cleaned and repositioned with bilateral extremities elevated on pillows. VS stable while maintained on Levophed at 4mcg/min. Pt remains afebrile.
[2018-11-08] MEDS ORDERED: NS 275ml ONE (16:25)
[2018-11-08] MEDS ORDERED: Tubing IV Secondary IV ONE (16:25)
[2018-11-08] MEDS ORDERED: Sterile Water Irrig 1000ml IRRIG ONE (16:25)
--- NOTE | 2018-11-08 18:00 | NUR ---
NURSE NOTES: Oral care done and pt repositioned. Pt is resting in no apparent distress. Denies pain. Maintained on Levophed at 4mcg/min with stable VS.
--- NOTE | 2018-11-08 19:21 | NUR ---
NURSE NOTES: Gabapentin scheduled for 1800 for nonadmid due to no supply/delivery to unit. Contacted air conditioning technician x3, and was told "will deliver". Will endorse to next shift.
--- NOTE | 2018-11-08 20:00 | NUR ---
HAND-OFF: Report given to Marlen JOSEPH. VS stable. Endorsed plan of care.
--- NOTE | 2018-11-08 20:05 | NUR ---
NURSE NOTES: Received patient from OPAL Beltran.Patient is awake and alert. On trach Shilet 6 to vent with settings of AC:14, TV:500, PEEP:5. FiO2:28%. Vital signs stable. On Gtueb feeding of Osmolite 1.2 @ 65ml/hr. Suprapubic catheter is draining. Will continue plan of care.
[2018-11-08] MEDS: Dyna-Hex 2% Top Sol 2oz TOPIC SCH (20:24)
[2018-11-08] MEDS: Metoprolol Tartrate 12.5mg TAB ORAL SCH (21:00)
[2018-11-08] MEDS: Miralax 17gm pkt GT SCH (21:31)
--- NOTE | 2018-11-08 22:00 | NUR ---
NURSE NOTES: Patient is stable. Vital signs are stable. Turned and repositioned. All needs are met. Will continue plan of care.
[2018-11-09] VITALS (57 sets, daily range): BP systolic 88–144; BP diastolic 38–98
--- NOTE | 2018-11-09 | NUR ---
NURSE NOTES: Vital signs stable. Patient able to move his head that all needs are met. Will continue plan of care.
--- NOTE | 2018-11-09 02:00 | NUR ---
NURSE NOTES: Patient is resting comfortably. Vital signs are stable. All needs are met, will continue plan of care.
--- NOTE | 2018-11-09 04:00 | NUR ---
NURSE NOTES: Patient is stable. Bed bath and linen change provided. Turned and reposition. Patient is comfortable. IV lines and supplies are updated and changed. Will continue plan of care.
[2018-11-09 04:55] LABS: BASOPHILS % (AUTO) 1.6 % (0.0-2.0); EOSINOPHILS % (AUTO) 0.4 % (0.0-3.0); HEMATOCRIT 41.4 % (42.0-52.0); HEMOGLOBIN 13.2 G/DL (14.2-18.0); LYMPHOCYTES % (AUTO) 31.1 % (20.0-45.0); MEAN CORPUSCULAR VOLUME 91 FL (80-99); MONOCYTES % (AUTO) 10.5 % (1.0-10.0); NEUTROPHILS % (AUTO) 56.5 % (45.0-75.0); PLATELET COUNT 488 K/UL (150-450); RED BLOOD COUNT 4.55 M/UL (4.70-6.10); RED CELL DISTRIBUTION WIDTH 19.3 % (11.6-14.8); WHITE BLOOD COUNT 8.2 K/UL (4.8-10.8)
[2018-11-09 05:20] LABS: ALANINE AMINOTRANSFERASE 64 U/L (12-78); ALBUMIN 2.4 G/DL (3.4-5.0); ALBUMIN/GLOBULIN RATIO 0.5 (1.0-2.7); ALKALINE PHOSPHATASE 514 U/L (46-116); ANION GAP 9 mmol/L (5-15); ASPARTATE AMINO TRANSFERASE 60 U/L (15-37); BILIRUBIN,TOTAL 0.9 MG/DL (0.2-1.0); BLOOD UREA NITROGEN 13 mg/dL (7-18); CALCIUM 8.2 MG/DL (8.5-10.1); CARBON DIOXIDE 25 MMOL/L (21-32); CHLORIDE 104 MMOL/L (98-107); CREATININE 0.5 MG/DL (0.55-1.30); PHOSPHORUS 2.1 MG/DL (2.5-4.9); POTASSIUM 3.6 MMOL/L (3.5-5.1); SODIUM 138 MMOL/L (136-145)
[2018-11-09] MEDS: Midodrine 10mg tab ORAL SCH ×3 (05:39→22:22)
[2018-11-09] MEDS: Meropenem 1 GM in NS 55 ML IVPB SCH ×3 (05:40→22:22)
[2018-11-09] MEDS: Minocycline HCl 50mg cap ORAL SCH ×2 (05:40→17:37)
[2018-11-09] MEDS: Vancomycin 1gm/D5W 275ml IVPB SCH ×2 (05:40)
[2018-11-09] MEDS: Gabapentin 300 MG/6 ML Soln GT SCH ×4 (05:41→23:33)
--- NOTE | 2018-11-09 06:00 | NUR ---
NURSE NOTES: Vital signs stable. Patient is awake and comfortable. All needs are met. Will continue plan of care.
--- NOTE | 2018-11-09 07:10 | NUR ---
RESPIRATORY NOTE: received pt on current vent settings. pt is trach with shiley [address]; secured via trach tie/guard. pt in no resp distress at this time. will attempt to wean later this morning and cont to monitor.
--- NOTE | 2018-11-09 07:28 | NUR ---
HAND-OFF: Report given to OPAL Mayen.
--- NOTE | 2018-11-09 07:29 | NUR ---
NURSE NOTES: Received patient from OPAL Gee. Patient resting in bed in semi-fowlers position with eyes closed at this time. Patient alert to self and place but confused to purpose and time. patient showing sinus rhythm on the continuous improvement coach with rate of 84bpm, blood pressure 112/66, temp 98.9, RR 16, SpO2 100%. Patient reported to have temperature of 99 over night. Patient has a fan on at the bedside at this time. Patient wants to keep the fan on at this time. Will continue to monitor temperature. Patient on trach to ventilator with setting of AC 14, tidal volume 500, FiO2 28%, and PEEP 5. Patient has a shiley 8 trach. Patient was on trach to T-piece upon admission. Patient has a gastrostomy tube that was replaced on 10/29 due to malfunction in the residential ([facility]). Patient has tube feeding of osmolite 1.2 at 65mL/hr at this time with no residual. Patient has discharge present around the G tube insertion site. Patient has suprapubic catheter that is patent, asymptomatic, and draining at this time. Patient has a condom catheter as well due to fact that the patient has some leakage from the penis. Patient has a right upper arm PICC line that is patent, asymptomatic, and running Levophed drip at 6mcg/hr. Will continue to monitor and titrate levophed drip per protocol. Patient bed in low position with bed alarm on and call light in reach at this time. Patient has a phosphorus level of 2.[address] Silverman has ordered 30mmol K-phos. Will administer as ordered.
--- NOTE | 2018-11-09 08:00 | Urology Progress Note ---
Assessment/Plan Status: stable Assessment/Plan: 1. Urinary retention with chronic suprapubic tube. 2. Neurogenic bladder. 3. Hydronephrosis, which appears to be chronic. 4. Nephrolithiasis. 5. Cystitis. 6. Hematuria. 7. Probable colonized urine. 8. Sepsis. monitor clinically keep SP tube, last exchanged 10/24 hand irrigated and do PRN position satisfactory, intermittent leakage from penis abx as ordered consider nuclear renal scan f/u on blood cx Subjective Allergies: Coded Allergies: SULFAMETHOXAZOLE (Verified Allergy, Unknown, 10/18/17) TRIMETHOPRIM (Verified Allergy, Unknown, 10/18/17) Subjective some more SP tube output, less penile output per nurse Objective Last 24 Hour Vital Signs Date Time Temp Pulse Resp B/P (MAP) Pulse Ox O2 Delivery O2 Flow Rate FiO2 11/09/18 07:09 79 17 28 11/09/18 07:00 80 16 99/53 (68) 100 11/09/18 07:00 99/53 11/09/18 06:00 79 16 117/70 (86) 100 11/09/18 06:00 117/70 11/09/18 05:08 83 18 28 11/09/18 05:00 107/62 11/09/18 05:00 86 17 107/62 (77) 100 11/09/18 04:00 87 11/09/18 04:00 28 11/09/18 04:00 94 21 114/64 (81) 99 11/09/18 04:00 114/64 11/09/18 04:00 Mechanical Ventilator 11/09/18 03:00 92 19 98/54 (69) 99 11/09/18 03:00 98/54 11/09/18 02:57 91 19 28 11/09/18 02:00 91 18 107/56 (73) 99 11/09/18 02:00 107/56 11/09/18 01:00 95 19 100/56 (71) 100 11/09/18 01:00 87 22 28 11/09/18 01:00 100/56 11/09/18 00:30 88/46 11/09/18 00:17 93/51 11/09/18 00:00 87 11/09/18 00:00 99.2 88 19 88/46 (60) 100 11/09/18 00:00 Mechanical Ventilator 11/09/18 00:00 28 11/08/18 23:21 84 19 28 11/08/18 23:00 134/68 11/08/18 23:00 84 18 134/68 (90) 99 11/08/18 22:00 89 20 112/54 (73) 99 11/08/18 22:00 112/54 11/08/18 21:45 92 18 100 Mechanical Ventilator 28 11/08/18 21:26 96 19 100 Mechanical Ventilator 28 11/08/18 21:23 96 20 28 11/08/18 21:00 98 90/52 11/08/18 21:00 96/55 11/08/18 21:00 96 19 96/55 (69) 100 11/08/18 20:00 98.9 96 20 90/53 (65) 100 11/08/18 20:00 98 11/08/18 20:00 Mechanical Ventilator 11/08/18 20:00 28 11/08/18 20:00 90/53 11/08/18 19:00 106/59 11/08/18 19:00 92 20 100/58 (72) 100 11/08/18 18:55 92 19 28 11/08/18 18:30 92 16 93/53 (66) 100 11/08/18 18:00 96/51 11/08/18 18:00 95 16 96/53 (67) 100 11/08/18 17:30 92 19 95/53 (67) 100 11/08/18 17:17 94 19 28 11/08/18 17:00 97/54 11/08/18 17:00 93 18 97/52 (67) 100 11/08/18 16:30 87 16 94/52 (66) 100 11/08/18 16:00 Mechanical Ventilator 11/08/18 16:00 102/55 11/08/18 16:00 98.6 91 18 103/56 (72) 100 11/08/18 16:00 28 11/08/18 16:00 94 11/08/18 15:39 90 19 28 11/08/18 15:00 113/60 11/08/18 15:00 86 19 128/64 (85) 100 11/08/18 14:30 75 16 125/65 (85) 100 11/08/18 14:15 85 17 102/56 (71) 100 11/08/18 14:00 86 16 96/51 (66) 100 11/08/18 14:00 125/65 11/08/18 13:36 87 19 28 11/08/18 13:00 83 17 102/54 (70) 100 11/08/18 13:00 102/54 11/08/18 12:00 81 11/08/18 12:00 98.6 81 16 102/61 (75) 100 11/08/18 12:00 28 11/08/18 12:00 102/61 11/08/18 12:00 Mechanical Ventilator 11/08/18 11:28 86 20 28 11/08/18 11:00 86 21 127/64 (85) 100 11/08/18 11:00 127/71 11/08/18 10:36 83 17 100 Mechanical Ventilator 28 11/08/18 10:26 78 18 100 Mechanical Ventilator 28 11/08/18 10:00 121/65 11/08/18 09:45 76 17 119/65 (83) 100 11/08/18 09:45 100 11/08/18 09:42 83 18 28 11/08/18 09:30 74 19 145/77 (99) 100 11/08/18 09:18 77 16 91/57 (68) 100 11/08/18 09:16 77 18 28 11/08/18 09:15 85 15 84/47 (59) 100 11/08/18 09:00 76 15 91/48 (62) 100 11/08/18 09:00 91/48 11/08/18 08:40 97/53 11/08/18 08:30 75 17 132/67 (88) 100 11/08/18 08:15 64 16 116/58 (77) 100 11/08/18 08:09 72 15 84/44 (57) 100 11/08/18 08:00 97.5 72 15 87/44 (58) 100 11/08/18 08:00 67 11/08/18 08:00 28 11/08/18 08:00 84/44 11/08/18 08:00 Mechanical Ventilator Intake and Output 11/08/18 11/09/18 19:00 07:00 Intake Total 1980.625 ml 1663.658 ml Output Total 850 ml 1257 ml Balance 1130.625 ml 406.658 ml Free Water 120 ml IV Total 1080.625 ml 683.658 ml Tube Feeding 780 ml 780 ml Other 200 ml Output Urine Total 850 ml 1257 ml Other 0 ml 0 ml Microbiology Date/Time Source Procedure Growth Status 11/05/18 12:15 Blood Blood Culture - Preliminary NO GROWTH AFTER 72 HOURS Resulted 10/31/18 21:30 Sputum Gram Stain - Final Complete 10/31/18 21:30 Sputum Culture - Final A.baumanii Complx - Mdr Usual Respiratory Nataly Complete 11/03/18 12:40 Urine,Clean Catch Urine Culture - Final Yeast Species Complete 11/01/18 03:00 Abdomen Gram Stain - Final Complete 11/01/18 03:00 Wound Culture - Final A.baumanii Complx - Mdr Wanda Albicans Usual Skin Nataly Complete Current Medications Medications (Trade) Dose Ordered Sig/Vicenta Route PRN Reason Start Time Stop Time Status Last Admin Dose Admin Acetaminophen (Tylenol) 650 mg Q4H PRN ORAL fever 11/03/18 12:30 11/27/18 12:29 11/05/18 19:18 Acetaminophen (Tylenol) 650 mg Q4H PRN RECTAL Mild Pain (Pain Scale 1-3) 11/03/18 14:45 11/28/18 10:44 Chlorhexidine Gluconate (Caitlyn-Hex 2%) 1 applic DAILY@1999 TOPIC 11/03/18 20:00 11/28/18 19:59 11/08/18 20:24 Colistimethate Sodium (Colistin *inhalation use only*) 150 mg Q12HR@10,22 INH 11/06/18 22:00 11/13/18 21:59 11/08/18 21:26 Dextrose (Dextrose 50%) 25 ml Q30M PRN IV Hypoglycemia 11/03/18 12:30 11/27/18 14:29 Dextrose (Dextrose 50%) 50 ml Q30M PRN IV Hypoglycemia 11/03/18 12:30 11/27/18 14:29 Docusate Sodium (Colace) 100 mg BID GT 11/03/18 18:00 12/03/18 17:59 11/07/18 08:37 Gabapentin (Neurontin) 600 mg Q6HR GT 11/03/18 12:00 11/27/18 17:59 11/09/18 05:41 Heparin Sodium (Porcine) (Heparin 5000 units/ml) 5,000 units EVERY 12 HOURS SUBQ 11/03/18 21:00 11/27/18 20:59 11/08/18 21:33 Levetiracetam 100 ml @ 400 mls/hr Q12HR IVPB 11/03/18 21:00 11/30/18 20:59 11/08/18 21:31 Lorazepam (Ativan 2mg/ml 1ml) 1 mg Q4H PRN IV agitation 11/03/18 12:11 11/10/18 12:10 11/06/18 21:18 Meropenem 1 gm/ Sodium Chloride 55 ml @ 110 mls/hr Q8HR IVPB 11/03/18 14:00 11/13/18 13:59 11/09/18 05:40 Metoclopramide HCl (Reglan) 10 mg Q6H PRN IVP severe nausea 11/03/18 12:11 12/03/18 12:10 Metoprolol Tartrate (Lopressor) 12.5 mg Q12HR ORAL 11/08/18 21:00 12/08/18 20:59 Midodrine (Pro-Amatine) 10 mg EVERY 8 HOURS ORAL 11/04/18 14:00 12/04/18 13:59 11/08/18 21:31 Mineral Oil (Fleet's Mineral Oil Enema) 133 ml EVERY OTHER DAY RECTAL 11/04/18 09:00 11/30/18 08:59 Minocycline HCl (Minocin) 100 mg Q12H ORAL 11/07/18 05:00 11/14/18 04:59 11/09/18 05:40 Morphine Sulfate (Morphine Sulfate) 2 mg Q4H PRN IVP severe Pain (Pain Scale 7-10) 11/03/18 12:12 11/10/18 12:11 Nitroglycerin (Ntg) 0.4 mg Q5M X 3 DOSES PRN SL Prn Chest Pain 11/03/18 12:12 12/03/18 12:11 Norepinephrine Bitartrate 4 mg/ Dextrose 250 ml @ 0 mls/hr Q24H IV 11/03/18 13:00 12/03/18 12:59 11/09/18 00:17 Pantoprazole (Protonix) 40 mg DAILY IV 11/04/18 09:00 11/28/18 08:59 11/08/18 08:40 Polyethylene Glycol (Miralax) 17 gm BEDTIME GT 11/03/18 21:00 12/03/18 20:59 11/08/18 21:31 Polyethylene Glycol (Miralax) 17 gm HSPRN PRN GT Constipation 11/03/18 12:12 12/03/18 12:11 Potassium Phosphate 30 mm/ Sodium Chloride 285 ml @ 47.5 mls/hr ONCE IV 11/09/18 09:00 11/09/18 15:00 Vancomycin HCl (Vanco rx to dose) 1 ea DAILY PRN MISC Per rx protocol 11/06/18 14:00 12/06/18 13:59 Vancomycin HCl 1 gm/Dextrose 275 ml @ 183.708 mls/hr Q12HR@0500,1700 IVPB 11/06/18 17:00 11/11/18 16:59 11/09/18 05:40 Zinc Oxide (Zinc Oxide) 1 applic TIDPRN PRN TOPIC around g tube site 11/03/18 13:00 12/03/18 12:59 Laboratory Tests 11/09/18 03:35: White Blood Count 8.2, Red Blood Count 4.55L, Hemoglobin 13.2L, Hematocrit 41.4L , Mean Corpuscular Volume 91, Mean Corpuscular Hemoglobin 29.0, Mean Corpuscular Hemoglobin Concent 31.9L, Red Cell Distribution Width 19.3H, Platelet Count 488H, Mean Platelet Volume 5.6L, Neutrophils (%) (Auto) 56.5, Lymphocytes (%) (Auto) 31.1, Monocytes (%) (Auto) 10.5H, Eosinophils (%) (Auto) 0.4, Basophils (%) (Auto) 1.6, Sodium Level 138, Potassium Level 3.6, Chloride Level 104, Carbon Dioxide Level 25, Anion Gap 9, Blood Urea Nitrogen 13, Creatinine 0.5L, Estimat Glomerular Filtration Rate > 60, Glucose Level 152H, Calcium Level 8.2L, Phosphorus Level 2.1L, Magnesium Level 2.1, Total Bilirubin 0.9, Aspartate Amino Transf (AST/SGOT) 60H, Alanine Aminotransferase (ALT/SGPT) 64, Alkaline Phosphatase 514H, Total Protein 7.1, Albumin 2.4L, Globulin 4.7, Albumin/Globulin Ratio 0.5L Height (Feet): 5 Height (Inches): 4.00 Weight (Pounds): 210 Objective exam stable SP tube in place, urine remains blood-tinged Ascencion Palomino MD Nov 09, 2018 08:00
[2018-11-09] MEDS ORDERED: Potassium Phosphate 30 MM in NS 275 ML IV SCH (09:00)
[2018-11-09] MEDS: Metoprolol Tartrate 12.5mg TAB ORAL SCH (09:00)
--- NOTE | 2018-11-09 09:09 | Nephrology Progress Note ---
Assessment/Plan Problem List: (1) Hypokalemia (2) Malfunction of gastrostomy tube (3) Malfunction of jejunostomy tube (4) Seizures Assessment Sever hypokalemia Low mag other conditions; 1. JG tube malfunction and leaks. 2. Respiratory failure. 3. Seizure disorder. 4. Chronic obstructive pulmonary disease. 5. Gastroesophageal reflux disease. 6. Neurogenic bladder. 7. Hypothyroidism. 8. Quadriplegia. 9. Tracheostomy in situ. 10.Thrombocytopenia. Plan BP support Vigorous K supplement IV Phos and Mag supplement as needed waiting for GT functionality ! ( Per GI) Monitor lytes and renal parameters per orders Subjective ROS Limited/Unobtainable: Yes Objective Objective Last 24 Hour Vital Signs Date Time Temp Pulse Resp B/P (MAP) Pulse Ox O2 Delivery O2 Flow Rate FiO2 11/09/18 08:56 100 11/09/18 08:43 81 21 28 11/09/18 08:00 98.9 84 18 108/56 (73) 100 11/09/18 07:09 79 17 28 11/09/18 07:00 80 16 99/53 (68) 100 11/09/18 07:00 99/53 11/09/18 06:00 79 16 117/70 (86) 100 11/09/18 06:00 117/70 11/09/18 05:08 83 18 28 11/09/18 05:00 107/62 11/09/18 05:00 86 17 107/62 (77) 100 11/09/18 04:00 87 11/09/18 04:00 28 11/09/18 04:00 94 21 114/64 (81) 99 11/09/18 04:00 114/64 11/09/18 04:00 Mechanical Ventilator 11/09/18 03:00 92 19 98/54 (69) 99 11/09/18 03:00 98/54 11/09/18 02:57 91 19 28 11/09/18 02:00 91 18 107/56 (73) 99 11/09/18 02:00 107/56 11/09/18 01:00 95 19 100/56 (71) 100 11/09/18 01:00 87 22 28 11/09/18 01:00 100/56 11/09/18 00:30 88/46 11/09/18 00:17 93/51 11/09/18 00:00 87 11/09/18 00:00 99.2 88 19 88/46 (60) 100 11/09/18 00:00 Mechanical Ventilator 11/09/18 00:00 28 11/08/18 23:21 84 19 28 11/08/18 23:00 134/68 11/08/18 23:00 84 18 134/68 (90) 99 11/08/18 22:00 89 20 112/54 (73) 99 11/08/18 22:00 112/54 11/08/18 21:45 92 18 100 Mechanical Ventilator 28 11/08/18 21:26 96 19 100 Mechanical Ventilator 28 11/08/18 21:23 96 20 28 11/08/18 21:00 98 90/52 11/08/18 21:00 96/55 11/08/18 21:00 96 19 96/55 (69) 100 11/08/18 20:00 98.9 96 20 90/53 (65) 100 11/08/18 20:00 98 11/08/18 20:00 Mechanical Ventilator 11/08/18 20:00 28 11/08/18 20:00 90/53 11/08/18 19:00 106/59 11/08/18 19:00 92 20 100/58 (72) 100 11/08/18 18:55 92 19 28 11/08/18 18:30 92 16 93/53 (66) 100 11/08/18 18:00 96/51 11/08/18 18:00 95 16 96/53 (67) 100 11/08/18 17:30 92 19 95/53 (67) 100 11/08/18 17:17 94 19 28 11/08/18 17:00 97/54 11/08/18 17:00 93 18 97/52 (67) 100 11/08/18 16:30 87 16 94/52 (66) 100 11/08/18 16:00 Mechanical Ventilator 11/08/18 16:00 102/55 11/08/18 16:00 98.6 91 18 103/56 (72) 100 11/08/18 16:00 28 11/08/18 16:00 94 11/08/18 15:39 90 19 28 11/08/18 15:00 113/60 11/08/18 15:00 86 19 128/64 (85) 100 11/08/18 14:30 75 16 125/65 (85) 100 11/08/18 14:15 85 17 102/56 (71) 100 11/08/18 14:00 86 16 96/51 (66) 100 11/08/18 14:00 125/65 11/08/18 13:36 87 19 28 11/08/18 13:00 83 17 102/54 (70) 100 11/08/18 13:00 102/54 11/08/18 12:00 81 11/08/18 12:00 98.6 81 16 102/61 (75) 100 11/08/18 12:00 28 11/08/18 12:00 102/61 11/08/18 12:00 Mechanical Ventilator 11/08/18 11:28 86 20 28 11/08/18 11:00 86 21 127/64 (85) 100 11/08/18 11:00 127/71 11/08/18 10:36 83 17 100 Mechanical Ventilator 28 11/08/18 10:26 78 18 100 Mechanical Ventilator 28 11/08/18 10:00 121/65 11/08/18 09:45 76 17 119/65 (83) 100 11/08/18 09:45 100 11/08/18 09:42 83 18 28 11/08/18 09:30 74 19 145/77 (99) 100 11/08/18 09:18 77 16 91/57 (68) 100 11/08/18 09:16 77 18 28 11/08/18 09:15 85 15 84/47 (59) 100 Intake and Output 11/08/18 11/09/18 19:00 07:00 Intake Total 1980.625 ml 1663.658 ml Output Total 850 ml 1257 ml Balance 1130.625 ml 406.658 ml Free Water 120 ml IV Total 1080.625 ml 683.658 ml Tube Feeding 780 ml 780 ml Other 200 ml Output Urine Total 850 ml 1257 ml Other 0 ml 0 ml Laboratory Tests 11/09/18 03:35: White Blood Count 8.2, Red Blood Count 4.55L, Hemoglobin 13.2L, Hematocrit 41.4L , Mean Corpuscular Volume 91, Mean Corpuscular Hemoglobin 29.0, Mean Corpuscular Hemoglobin Concent 31.9L, Red Cell Distribution Width 19.3H, Platelet Count 488H, Mean Platelet Volume 5.6L, Neutrophils (%) (Auto) 56.5, Lymphocytes (%) (Auto) 31.1, Monocytes (%) (Auto) 10.5H, Eosinophils (%) (Auto) 0.4, Basophils (%) (Auto) 1.6, Sodium Level 138, Potassium Level 3.6, Chloride Level 104, Carbon Dioxide Level 25, Anion Gap 9, Blood Urea Nitrogen 13, Creatinine 0.5L, Estimat Glomerular Filtration Rate > 60, Glucose Level 152H, Calcium Level 8.2L, Phosphorus Level 2.1L, Magnesium Level 2.1, Total Bilirubin 0.9, Aspartate Amino Transf (AST/SGOT) 60H, Alanine Aminotransferase (ALT/SGPT) 64, Alkaline Phosphatase 514H, Total Protein 7.1, Albumin 2.4L, Globulin 4.7, Albumin/Globulin Ratio 0.5L Height (Feet): 5 Height (Inches): 4.00 Weight (Pounds): 210 General Appearance: no apparent distress EENT: other - trach Cardiovascular: normal rate Respiratory/Chest: decreased breath sounds Abdomen: distended Sudhakar Silverman MD Nov 09, 2018 09:09
[2018-11-09] MEDS: Docusate 100mg tablet GT SCH ×2 (09:18→17:37)
[2018-11-09] MEDS: Pantoprazole Inj IV SCH (09:19)
[2018-11-09] MEDS: levETIRAcetam 500mg/NS100ml 100 ML IVPB SCH ×2 (09:19→20:38)
[2018-11-09] MEDS: Heparin 5000 units/ml inj SUBQ SCH ×2 (09:21→20:40)
--- NOTE | 2018-11-09 09:38 | Pulmonolgy Critical Care Note ---
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 Respiratory: monitor respiratory rate, adjust FIO2, CXR Cardiac: continue pressors, continue to monitor HR/BP Renal: F/U I&O Infectious Disease: check cultures, continue antibiotics Gastrointestinal: continue feedings/current rate Endocrine: monitor blood sugar, check TSH Hematologic: monitor H/H, transfuse if hgb<8.5 Neurologic: PRN Morphine, keep patient comfortable Time Spent (Minutes): 40 Notes Reviewed: butt maker, cardio Discussed with: nurses, consultants, medical case workerspa assistant manager - Objective Last 24 Hour Vital Signs Date Time Temp Pulse Resp B/P (MAP) Pulse Ox O2 Delivery O2 Flow Rate FiO2 11/09/18 09:20 105/54 11/09/18 09:00 80 105/54 11/09/18 08:56 100 11/09/18 08:43 81 21 28 11/09/18 08:00 98.9 84 18 108/56 (73) 100 11/09/18 07:09 79 17 28 11/09/18 07:00 80 16 99/53 (68) 100 11/09/18 07:00 99/53 11/09/18 06:00 79 16 117/70 (86) 100 11/09/18 06:00 117/70 11/09/18 05:08 83 18 28 11/09/18 05:00 107/62 11/09/18 05:00 86 17 107/62 (77) 100 11/09/18 04:00 87 11/09/18 04:00 28 11/09/18 04:00 94 21 114/64 (81) 99 11/09/18 04:00 114/64 11/09/18 04:00 Mechanical Ventilator 11/09/18 03:00 92 19 98/54 (69) 99 11/09/18 03:00 98/54 11/09/18 02:57 91 19 28 11/09/18 02:00 91 18 107/56 (73) 99 11/09/18 02:00 107/56 11/09/18 01:00 95 19 100/56 (71) 100 11/09/18 01:00 87 22 28 11/09/18 01:00 100/56 11/09/18 00:30 88/46 11/09/18 00:17 93/51 11/09/18 00:00 87 11/09/18 00:00 99.2 88 19 88/46 (60) 100 11/09/18 00:00 Mechanical Ventilator 11/09/18 00:00 28 11/08/18 23:21 84 19 28 11/08/18 23:00 134/68 11/08/18 23:00 84 18 134/68 (90) 99 11/08/18 22:00 89 20 112/54 (73) 99 11/08/18 22:00 112/54 11/08/18 21:45 92 18 100 Mechanical Ventilator 28 11/08/18 21:26 96 19 100 Mechanical Ventilator 28 11/08/18 21:23 96 20 28 11/08/18 21:00 98 90/52 11/08/18 21:00 96/55 11/08/18 21:00 96 19 96/55 (69) 100 11/08/18 20:00 98.9 96 20 90/53 (65) 100 11/08/18 20:00 98 11/08/18 20:00 Mechanical Ventilator 11/08/18 20:00 28 11/08/18 20:00 90/53 11/08/18 19:00 106/59 11/08/18 19:00 92 20 100/58 (72) 100 11/08/18 18:55 92 19 28 11/08/18 18:30 92 16 93/53 (66) 100 11/08/18 18:00 96/51 11/08/18 18:00 95 16 96/53 (67) 100 11/08/18 17:30 92 19 95/53 (67) 100 11/08/18 17:17 94 19 28 11/08/18 17:00 97/54 11/08/18 17:00 93 18 97/52 (67) 100 11/08/18 16:30 87 16 94/52 (66) 100 11/08/18 16:00 Mechanical Ventilator 11/08/18 16:00 102/55 11/08/18 16:00 98.6 91 18 103/56 (72) 100 11/08/18 16:00 28 11/08/18 16:00 94 11/08/18 15:39 90 19 28 11/08/18 15:00 113/60 11/08/18 15:00 86 19 128/64 (85) 100 11/08/18 14:30 75 16 125/65 (85) 100 11/08/18 14:15 85 17 102/56 (71) 100 11/08/18 14:00 86 16 96/51 (66) 100 11/08/18 14:00 125/65 11/08/18 13:36 87 19 28 11/08/18 13:00 83 17 102/54 (70) 100 11/08/18 13:00 102/54 11/08/18 12:00 81 11/08/18 12:00 98.6 81 16 102/61 (75) 100 11/08/18 12:00 28 11/08/18 12:00 102/61 11/08/18 12:00 Mechanical Ventilator 11/08/18 11:28 86 20 28 11/08/18 11:00 86 21 127/64 (85) 100 11/08/18 11:00 127/71 11/08/18 10:36 83 17 100 Mechanical Ventilator 28 11/08/18 10:26 78 18 100 Mechanical Ventilator 28 11/08/18 10:00 121/65 11/08/18 09:45 76 17 119/65 (83) 100 11/08/18 09:45 100 11/08/18 09:42 83 18 28 Status: awake Condition: critical HEENT: atraumatic, normocephalic Lungs: clear Heart: HR/BP stable Abdomen: soft, non-tender Extremities: no C/C/E, edema Critical Care - Subjective ROS Limited/Unobtainable: Yes Condition: critical EKG Rhythm: Sinus Rhythm FI02: 28 Vent Support Breath Rate: 14 Vent Support Mode: CPAP Vent Tidal Volume: 500 Sputum Amount: Small PEEP: 5.0 PIP: 13 Fluids: KVO Drips: 6 ugm levophed Tube Feeding Amount: 65 I&O: Intake and Output 11/08/18 11/09/18 19:00 07:00 Intake Total 1980.625 ml 1663.658 ml Output Total 850 ml 1257 ml Balance 1130.625 ml 406.658 ml Free Water 120 ml IV Total 1080.625 ml 683.658 ml Tube Feeding 780 ml 780 ml Other 200 ml Output Urine Total 850 ml 1257 ml Other 0 ml 0 ml Labs: Laboratory Tests Test 11/09/18 03:35 White Blood Count 8.2 K/UL (4.8-10.8) Red Blood Count 4.55 M/UL (4.70-6.10) L Hemoglobin 13.2 G/DL (14.2-18.0) L Hematocrit 41.4 % (42.0-52.0) L Mean Corpuscular Volume 91 FL (80-99) Mean Corpuscular Hemoglobin 29.0 PG (27.0-31.0) Mean Corpuscular Hemoglobin Concent 31.9 G/DL (32.0-36.0) L Red Cell Distribution Width 19.3 % (11.6-14.8) H Platelet Count 488 K/UL (150-450) H Mean Platelet Volume 5.6 FL (6.5-10.1) L Neutrophils (%) (Auto) 56.5 % (45.0-75.0) Lymphocytes (%) (Auto) 31.1 % (20.0-45.0) Monocytes (%) (Auto) 10.5 % (1.0-10.0) H Eosinophils (%) (Auto) 0.4 % (0.0-3.0) Basophils (%) (Auto) 1.6 % (0.0-2.0) Sodium Level 138 MMOL/L (136-145) Potassium Level 3.6 MMOL/L (3.5-5.1) Chloride Level 104 MMOL/L (98-107) Carbon Dioxide Level 25 MMOL/L (21-32) Anion Gap 9 mmol/L (5-15) Blood Urea Nitrogen 13 mg/dL (7-18) Creatinine 0.5 MG/DL (0.55-1.30) L Estimat Glomerular Filtration Rate > 60 mL/min (>60) Glucose Level 152 MG/DL (74-106) H Calcium Level 8.2 MG/DL (8.5-10.1) L Phosphorus Level 2.1 MG/DL (2.5-4.9) L Magnesium Level 2.1 MG/DL (1.8-2.4) Total Bilirubin 0.9 MG/DL (0.2-1.0) Aspartate Amino Transf (AST/SGOT) 60 U/L (15-37) H Alanine Aminotransferase (ALT/SGPT) 64 U/L (12-78) Alkaline Phosphatase 514 U/L (46-116) H Total Protein 7.1 G/DL (6.4-8.2) Albumin 2.4 G/DL (3.4-5.0) L Globulin 4.7 g/dL Albumin/Globulin Ratio 0.5 (1.0-2.7) L Mellissa Garcia MD Nov 09, 2018 09:38
[2018-11-09] MEDS ORDERED: Tubing IV Secondary IV ONE (09:49)
[2018-11-09] MEDS ORDERED: NS 500ML ONE (09:49)
--- NOTE | 2018-11-09 10:30 | NUR ---
NURSE NOTES: Blood pressure 113/51 at this time on Levophed drip at 5mcg/hr. Will continue to monitor blood pressure and titrate levophed per protocol. Patient HR 80, RR 20, SpO2 100%. Patient denies pain or distress. Patient resting comfortably in bed. Patient repositioned at this time.
[2018-11-09] MEDS: Colistin for inhalation INH SCH ×2 (10:45→21:09)
--- NOTE | 2018-11-09 10:52 | GI Progress Note ---
Assessment/Plan Problems: (1) Malfunction of jejunostomy tube ICD Codes: K94.13 - Enterostomy malfunction SNOMED: 002130683, [id number] (2) Hypokalemia ICD Codes: E87.6 - Hypokalemia SNOMED: 82414934 Status: stable Status Narrative Discussed with Dr. Lehman. Assessment/Plan CT AP reviewed Thickening of the underdistended urinary bladder is concerning for cystitis. Consider correlation with urinalysis. Moderate bilateral hydroureteronephrosis. Moderate stool in the rectosigmoid colon is suggestive of constipation. Morphologic features of cirrhosis. Cholelithiasis. s/p EGD with GT replacement GTFs per RD GT site care BID/prn Monitor H&H, PRN transfusions turn q2 hours PPI Electrolyte correction bowel regimen follow labs The patient was seen and examined at bedside and all new and available data was reviewed in the patients chart. I agree with the above findings, impression and plan. (Patient seen earlier today. Signature stamp does not reflect patient encounter time.). - Kvng Lehman MD Subjective Gastrointestinal/Abdominal: Reports: no symptoms Subjective limited Objective Last 24 Hour Vital Signs Date Time Temp Pulse Resp B/P (MAP) Pulse Ox O2 Delivery O2 Flow Rate FiO2 11/09/18 10:45 85 24 100 Mechanical Ventilator 28 11/09/18 10:15 110/48 11/09/18 10:00 106/43 11/09/18 09:45 114/51 11/09/18 09:20 105/54 11/09/18 09:00 80 105/54 11/09/18 09:00 105/54 11/09/18 08:56 100 11/09/18 08:43 81 21 28 11/09/18 08:00 98.9 84 18 108/56 (73) 100 11/09/18 08:00 112/66 11/09/18 07:09 79 17 28 11/09/18 07:00 80 16 99/53 (68) 100 11/09/18 07:00 99/53 11/09/18 06:00 79 16 117/70 (86) 100 11/09/18 06:00 117/70 11/09/18 05:08 83 18 28 11/09/18 05:00 107/62 11/09/18 05:00 86 17 107/62 (77) 100 11/09/18 04:00 87 11/09/18 04:00 28 11/09/18 04:00 94 21 114/64 (81) 99 11/09/18 04:00 114/64 11/09/18 04:00 Mechanical Ventilator 11/09/18 03:00 92 19 98/54 (69) 99 11/09/18 03:00 98/54 11/09/18 02:57 91 19 28 11/09/18 02:00 91 18 107/56 (73) 99 11/09/18 02:00 107/56 11/09/18 01:00 95 19 100/56 (71) 100 11/09/18 01:00 87 22 28 11/09/18 01:00 100/56 11/09/18 00:30 88/46 11/09/18 00:17 93/51 11/09/18 00:00 87 11/09/18 00:00 99.2 88 19 88/46 (60) 100 11/09/18 00:00 Mechanical Ventilator 11/09/18 00:00 28 11/08/18 23:21 84 19 28 11/08/18 23:00 134/68 11/08/18 23:00 84 18 134/68 (90) 99 11/08/18 22:00 89 20 112/54 (73) 99 11/08/18 22:00 112/54 11/08/18 21:45 92 18 100 Mechanical Ventilator 28 11/08/18 21:26 96 19 100 Mechanical Ventilator 28 11/08/18 21:23 96 20 28 11/08/18 21:00 98 90/52 11/08/18 21:00 96/55 11/08/18 21:00 96 19 96/55 (69) 100 11/08/18 20:00 98.9 96 20 90/53 (65) 100 11/08/18 20:00 98 11/08/18 20:00 Mechanical Ventilator 11/08/18 20:00 28 11/08/18 20:00 90/53 11/08/18 19:00 106/59 11/08/18 19:00 92 20 100/58 (72) 100 11/08/18 18:55 92 19 28 11/08/18 18:30 92 16 93/53 (66) 100 11/08/18 18:00 96/51 8/18/19 18:00 95 16 96/53 (67) 100 11/08/18 17:30 92 19 95/53 (67) 100 11/08/18 17:17 94 19 28 11/08/18 17:00 97/54 11/08/18 17:00 93 18 97/52 (67) 100 11/08/18 16:30 87 16 94/52 (66) 100 11/08/18 16:00 Mechanical Ventilator 11/08/18 16:00 102/55 11/08/18 16:00 98.6 91 18 103/56 (72) 100 11/08/18 16:00 28 11/08/18 16:00 94 11/08/18 15:39 90 19 28 11/08/18 15:00 113/60 11/08/18 15:00 86 19 128/64 (85) 100 11/08/18 14:30 75 16 125/65 (85) 100 11/08/18 14:15 85 17 102/56 (71) 100 11/08/18 14:00 86 16 96/51 (66) 100 11/08/18 14:00 125/65 11/08/18 13:36 87 19 28 11/08/18 13:00 83 17 102/54 (70) 100 11/08/18 13:00 102/54 11/08/18 12:00 81 11/08/18 12:00 98.6 81 16 102/61 (75) 100 11/08/18 12:00 28 11/08/18 12:00 102/61 11/08/18 12:00 Mechanical Ventilator 11/08/18 11:28 86 20 28 11/08/18 11:00 86 21 127/64 (85) 100 11/08/18 11:00 127/71 Intake and Output 11/08/18 11/09/18 19:00 07:00 Intake Total 1980.625 ml 1663.658 ml Output Total 850 ml 1257 ml Balance 1130.625 ml 406.658 ml Free Water 120 ml IV Total 1080.625 ml 683.658 ml Tube Feeding 780 ml 780 ml Other 200 ml Output Urine Total 850 ml 1257 ml Other 0 ml 0 ml Laboratory Tests Test 11/09/18 03:35 White Blood Count 8.2 K/UL (4.8-10.8) Red Blood Count 4.55 M/UL (4.70-6.10) L Hemoglobin 13.2 G/DL (14.2-18.0) L Hematocrit 41.4 % (42.0-52.0) L Mean Corpuscular Volume 91 FL (80-99) Mean Corpuscular Hemoglobin 29.0 PG (27.0-31.0) Mean Corpuscular Hemoglobin Concent 31.9 G/DL (32.0-36.0) L Red Cell Distribution Width 19.3 % (11.6-14.8) H Platelet Count 488 K/UL (150-450) H Mean Platelet Volume 5.6 FL (6.5-10.1) L Neutrophils (%) (Auto) 56.5 % (45.0-75.0) Lymphocytes (%) (Auto) 31.1 % (20.0-45.0) Monocytes (%) (Auto) 10.5 % (1.0-10.0) H Eosinophils (%) (Auto) 0.4 % (0.0-3.0) Basophils (%) (Auto) 1.6 % (0.0-2.0) Sodium Level 138 MMOL/L (136-145) Potassium Level 3.6 MMOL/L (3.5-5.1) Chloride Level 104 MMOL/L (98-107) Carbon Dioxide Level 25 MMOL/L (21-32) Anion Gap 9 mmol/L (5-15) Blood Urea Nitrogen 13 mg/dL (7-18) Creatinine 0.5 MG/DL (0.55-1.30) L Estimat Glomerular Filtration Rate > 60 mL/min (>60) Glucose Level 152 MG/DL (74-106) H Calcium Level 8.2 MG/DL (8.5-10.1) L Phosphorus Level 2.1 MG/DL (2.5-4.9) L Magnesium Level 2.1 MG/DL (1.8-2.4) Total Bilirubin 0.9 MG/DL (0.2-1.0) Aspartate Amino Transf (AST/SGOT) 60 U/L (15-37) H Alanine Aminotransferase (ALT/SGPT) 64 U/L (12-78) Alkaline Phosphatase 514 U/L (46-116) H Total Protein 7.1 G/DL (6.4-8.2) Albumin 2.4 G/DL (3.4-5.0) L Globulin 4.7 g/dL Albumin/Globulin Ratio 0.5 (1.0-2.7) L Height (Feet): 5 Height (Inches): 4.00 Weight (Pounds): 210 General Appearance: no apparent distress, alert Cardiovascular: normal rate Respiratory/Chest: lungs clear Abdominal Exam: distended, GT site Daisy Bernstein ADVANCED DEVELOPER Nov 09, 2018 10:52
--- NOTE | 2018-11-09 11:32 | Surgery Progress Note ---
Surgery Progress Note Subjective Additional Comments no acute events stable comfortable labs noted Objective Last 24 Hour Vital Signs Date Time Temp Pulse Resp B/P (MAP) Pulse Ox O2 Delivery O2 Flow Rate FiO2 11/09/18 11:15 82 18 109/49 (69) 100 11/09/18 11:07 82 22 28 11/09/18 11:07 84 22 100 Mechanical Ventilator 28 11/09/18 11:00 82 19 122/49 (73) 100 11/09/18 10:45 78 22 122/53 (76) 100 11/09/18 10:45 85 24 100 Mechanical Ventilator 28 11/09/18 10:30 81 21 113/51 (71) 100 11/09/18 10:15 85 23 110/48 (68) 100 11/09/18 10:15 110/48 11/09/18 10:00 106/43 11/09/18 10:00 82 21 106/43 (64) 100 11/09/18 09:45 114/51 11/09/18 09:45 84 22 114/51 (72) 100 11/09/18 09:20 105/54 11/09/18 09:00 81 21 105/54 (71) 100 11/09/18 09:00 80 105/54 11/09/18 09:00 105/54 11/09/18 08:56 100 11/09/18 08:43 81 21 28 11/09/18 08:00 98.9 84 18 108/56 (73) 100 11/09/18 08:00 28 11/09/18 08:00 112/66 11/09/18 08:00 Mechanical Ventilator 11/09/18 07:09 79 17 28 11/09/18 07:00 80 16 99/53 (68) 100 11/09/18 07:00 99/53 11/09/18 06:00 79 16 117/70 (86) 100 11/09/18 06:00 117/70 11/09/18 05:08 83 18 28 11/09/18 05:00 107/62 11/09/18 05:00 86 17 107/62 (77) 100 11/09/18 04:00 87 11/09/18 04:00 28 11/09/18 04:00 94 21 114/64 (81) 99 11/09/18 04:00 114/64 11/09/18 04:00 Mechanical Ventilator 11/09/18 03:00 92 19 98/54 (69) 99 11/09/18 03:00 98/54 11/09/18 02:57 91 19 28 11/09/18 02:00 91 18 107/56 (73) 99 11/09/18 02:00 107/56 11/09/18 01:00 95 19 100/56 (71) 100 11/09/18 01:00 87 22 28 11/09/18 01:00 100/56 11/09/18 00:30 88/46 11/09/18 00:17 93/51 11/09/18 00:00 87 11/09/18 00:00 99.2 88 19 88/46 (60) 100 11/09/18 00:00 Mechanical Ventilator 11/09/18 00:00 28 11/08/18 23:21 84 19 28 11/08/18 23:00 134/68 11/08/18 23:00 84 18 134/68 (90) 99 11/08/18 22:00 89 20 112/54 (73) 99 11/08/18 22:00 112/54 11/08/18 21:45 92 18 100 Mechanical Ventilator 28 11/08/18 21:26 96 19 100 Mechanical Ventilator 28 11/08/18 21:23 96 20 28 11/08/18 21:00 98 90/52 11/08/18 21:00 96/55 11/08/18 21:00 96 19 96/55 (69) 100 11/08/18 20:00 98.9 96 20 90/53 (65) 100 11/08/18 20:00 98 11/08/18 20:00 Mechanical Ventilator 11/08/18 20:00 28 11/08/18 20:00 90/53 11/08/18 19:00 106/59 11/08/18 19:00 92 20 100/58 (72) 100 11/08/18 18:55 92 19 28 11/08/18 18:30 92 16 93/53 (66) 100 11/08/18 18:00 96/51 11/08/18 18:00 95 16 96/53 (67) 100 11/08/18 17:30 92 19 95/53 (67) 100 11/08/18 17:17 94 19 28 11/08/18 17:00 97/54 11/08/18 17:00 93 18 97/52 (67) 100 11/08/18 16:30 87 16 94/52 (66) 100 11/08/18 16:00 Mechanical Ventilator 11/08/18 16:00 102/55 11/08/18 16:00 98.6 91 18 103/56 (72) 100 11/08/18 16:00 28 11/08/18 16:00 94 11/08/18 15:39 90 19 28 11/08/18 15:00 113/60 11/08/18 15:00 86 19 128/64 (85) 100 11/08/18 14:30 75 16 125/65 (85) 100 11/08/18 14:15 85 17 102/56 (71) 100 11/08/18 14:00 86 16 96/51 (66) 100 11/08/18 14:00 125/65 11/08/18 13:36 87 19 28 11/08/18 13:00 83 17 102/54 (70) 100 11/08/18 13:00 102/54 11/08/18 12:00 81 11/08/18 12:00 98.6 81 16 102/61 (75) 100 11/08/18 12:00 28 11/08/18 12:00 102/61 11/08/18 12:00 Mechanical Ventilator I&O Intake and Output 11/08/18 11/09/18 19:00 07:00 Intake Total 1980.625 ml 1663.658 ml Output Total 850 ml 1257 ml Balance 1130.625 ml 406.658 ml Free Water 120 ml IV Total 1080.625 ml 683.658 ml Tube Feeding 780 ml 780 ml Other 200 ml Output Urine Total 850 ml 1257 ml Other 0 ml 0 ml Dressing: saturated Wound: other Drains: other Cardiovascular: RSR Respiratory: decreased breath sounds Abdomen: soft, other Extremities: no cyanosis Laboratory Tests Test 11/09/18 03:35 White Blood Count 8.2 K/UL (4.8-10.8) Red Blood Count 4.55 M/UL (4.70-6.10) L Hemoglobin 13.2 G/DL (14.2-18.0) L Hematocrit 41.4 % (42.0-52.0) L Mean Corpuscular Volume 91 FL (80-99) Mean Corpuscular Hemoglobin 29.0 PG (27.0-31.0) Mean Corpuscular Hemoglobin Concent 31.9 G/DL (32.0-36.0) L Red Cell Distribution Width 19.3 % (11.6-14.8) H Platelet Count 488 K/UL (150-450) H Mean Platelet Volume 5.6 FL (6.5-10.1) L Neutrophils (%) (Auto) 56.5 % (45.0-75.0) Lymphocytes (%) (Auto) 31.1 % (20.0-45.0) Monocytes (%) (Auto) 10.5 % (1.0-10.0) H Eosinophils (%) (Auto) 0.4 % (0.0-3.0) Basophils (%) (Auto) 1.6 % (0.0-2.0) Sodium Level 138 MMOL/L (136-145) Potassium Level 3.6 MMOL/L (3.5-5.1) Chloride Level 104 MMOL/L (98-107) Carbon Dioxide Level 25 MMOL/L (21-32) Anion Gap 9 mmol/L (5-15) Blood Urea Nitrogen 13 mg/dL (7-18) Creatinine 0.5 MG/DL (0.55-1.30) L Estimat Glomerular Filtration Rate > 60 mL/min (>60) Glucose Level 152 MG/DL (74-106) H Calcium Level 8.2 MG/DL (8.5-10.1) L Phosphorus Level 2.1 MG/DL (2.5-4.9) L Magnesium Level 2.1 MG/DL (1.8-2.4) Total Bilirubin 0.9 MG/DL (0.2-1.0) Aspartate Amino Transf (AST/SGOT) 60 U/L (15-37) H Alanine Aminotransferase (ALT/SGPT) 64 U/L (12-78) Alkaline Phosphatase 514 U/L (46-116) H Total Protein 7.1 G/DL (6.4-8.2) Albumin 2.4 G/DL (3.4-5.0) L Globulin 4.7 g/dL Albumin/Globulin Ratio 0.5 (1.0-2.7) L Plan Problems: (1) Malfunction of gastrostomy tube Assessment & Plan: This is a 57-year-old male with malfunctioning G-tube in. G -tube cellulitis. I taken care of this patient for a long period of time and trying to help resolve this. This is actually the best it has looked and prior was significantly worse. I anticipated he would stay on TPN while the G-tube site completely closed with plans for a new G-tube placement in the future in a completely different site. Unfortunately seems that a G-tube is been placed into his prior closing site now is developing cellulitis around it again. For now given that its improved and not leaking significantly potentially cellulitis can improve and will continue with localized wound care. Apply zinc oxide around the tube and continue with tube use. Nutritional optimization is keys here. We will follow with recommendations. Thank you for allowing me to participate in patient's care Still leaking around G-tube site but erythema and skin changes much improved. Still has scaling skin with some erythema noted but significant improved as prior. G-tube in stable positioning. Dressings intact. Apply zinc oxide around G-tube site as needed with dressing changes. We will continue to monitor (2) Malfunction of jejunostomy tube (3) Abnormal LFTs Assessment & Plan: Patient with elevated t bili, d bili, alk phos remain elevated CT and US with cholelithiasis ?cbd stone will discuss with GI trend labs thank you Robetr Gomez Nov 09, 2018 11:32
--- NOTE | 2018-11-09 12:00 | NUR ---
NURSE NOTES: Patient resting in bed in semi-fowlers position with eyes closed at this time. Patient remains alert to self and place but confused to purpose and time. patient showing sinus rhythm on the monitoring specialist with rate of 77bpm, blood pressure 109/47, temp 98.4, RR 23, SpO2 100%. Fan remains at the bedside at this time per patient request. Patient remains on trach to ventilator with setting of CPAP pressure support 8, FiO2 28%, and PEEP 5. Patient tolerating weaning with no sign of acute distress. gastrostomy tube patent and asymptomatic and running tube feeding of osmolite 1.2 at 65mL/hr at this time with no residual. Suprapubic catheter patent, asymptomatic, and draining at this time. Dressing intact and asymptomatic. No leakage noted from the penis at this time. Patient has consistent urine output of about 150mL/hr. Right upper arm PICC line remains patent, asymptomatic, and running Levophed drip now at 3mcg/hr. Will continue to monitor and titrate levophed drip per protocol. Patient bed in low position with bed alarm on and call light in reach at this time. Will continue to monitor. Addendum: 11/09/18 at 1354 by Tiarra Nieves RN Oral care done and patient repositioned at this time.
--- NOTE | 2018-11-09 14:00 | NUR ---
NURSE NOTES: Patient still tolerating weaning trial with CPAP and pressure support 8. Patient denies shortness of breath or respiratory distress. Patient blood pressure 113/51, HR 78 and sinus rhythm on the directory compiler, RR 10, SpO2 100%. Patient running Levophed at 3mcg/hr at this time. Will continue to monitor blood pressure and titrate levophed per protocol. Patient cleaned at this time. Oral care performed. Patient turned and repositioned at this time. Bed in low position with bed alarm on and call light in reach.
--- NOTE | 2018-11-09 14:23 | Infectious Diseases Prog Note ---
Assessment/Plan Assessment/Plan Sepsis 2ry to GNR bacteremia (suspect from urinary source given hydronephrosis and chronic suprapubic catheter); now shock, on pressors- r/o PNA, bacteremia, acute cholecysititis or cholangitis 11/08 CXR: Interval resolution of the left lung base opacity. No new consolidation seen. -11/05 Bcx NTD -11/03 u/a (delayed collection) wbc 20-30, nit neg, leuk +3; ucx yeast -10/30 BCx 4/4 ESBL P. mirabilis (S Ertapenem, ZOsyn); 10/31 BCx <10k yeast ( colonzier) -spc x MDR ABC (I Gentamicin; S polymixin B, Colistin, minocycline); colonizer -11/03 CXR: Low lung volumes leading tobronchovascular crowding. Bibasilar subsegmental atelectasis. No new airspace consolidation. -CT abd/p: Thickening of the underdistended urinary bladder is concerning for cystitis. Consider correlation with urinalysis. Moderate bilateral hydroureteronephrosis. Moderate stool in the rectosigmoid colon is suggestive of constipation. Morphologic features of cirrhosis. Cholelithiasis. -CXR: Left hemidiaphragm is elevated but this appears stable. PICC line and tracheostomy noted. Cardiomegaly is stable. Bones are osteopenic. JT dislodgement and leakage w/ surrounding cellulitis -wound cx MDR ABC (I genta); colonizer Elevated LFTs- r/o hepatobiliary disease Fever; recurrent- probable pNA -11/06 CXR: Increasing left basilar atelectasis and hazy parenchymal infiltrate, overt 2 days No leukocytosis paraplegia neurogenic bladder COPD GERD seizure disorder s/p trach dysphagia s/p J tube placement 10/22/18 [place] resident Plan: -Continue Meropenem #10/04 for ESBL bacteremia - d/c empiric IV Vancomycin #4 given worsening shock - Continue Minocycline #3/-10 and INH colistin #3/7-10 for MDR ABC sputum cx given fevers and recent CXR changes -11/03 SP Cefepime #5 -11/02 SP IV Vancomycin #5 -10/29 SP Amikacin #1 and Flagyl #1 -f/u cx -Monitor CBC/CMP, temperatures -trach/JT care -GI, Sx f/u -aspiration precautions -f/u Bcx x2 Thank you for this consultation. Will continue to follow along with you. Subjective Allergies: Coded Allergies: SULFAMETHOXAZOLE (Verified Allergy, Unknown, 10/18/17) TRIMETHOPRIM (Verified Allergy, Unknown, 10/18/17) Subjective afebrile in >72hrs no leukocytosis repeat Bcx NTD remains on pressors Objective Vital Signs Last 24 Hour Vital Signs Date Time Temp Pulse Resp B/P (MAP) Pulse Ox O2 Delivery O2 Flow Rate FiO2 11/09/18 13:42 103/47 11/09/18 13:30 100/45 11/09/18 13:15 104/43 11/09/18 13:00 104/43 11/09/18 12:45 80 1 104/43 (63) 100 11/09/18 12:44 124/51 11/09/18 12:30 77 6 124/51 (75) 100 11/09/18 12:30 124/51 11/09/18 12:30 78 22 28 11/09/18 12:15 76 0 108/46 (66) 100 11/09/18 12:15 108/46 11/09/18 12:00 109/47 11/09/18 12:00 28 11/09/18 12:00 Mechanical Ventilator 11/09/18 12:00 98.4 78 0 109/47 (67) 100 11/09/18 12:00 80 11/09/18 11:45 75 0 113/48 (69) 100 11/09/18 11:45 113/48 11/09/18 11:30 79 0 106/53 (70) 100 11/09/18 11:30 106/53 11/09/18 11:15 109/49 11/09/18 11:15 82 18 109/49 (69) 100 11/09/18 11:07 82 22 28 11/09/18 11:07 84 22 100 Mechanical Ventilator 28 11/09/18 11:00 122/49 11/09/18 11:00 82 19 122/49 (73) 100 11/09/18 10:45 78 22 122/53 (76) 100 11/09/18 10:45 122/53 11/09/18 10:45 85 24 100 Mechanical Ventilator 28 11/09/18 10:30 113/51 11/09/18 10:30 81 21 113/51 (71) 100 11/09/18 10:15 85 23 110/48 (68) 100 11/09/18 10:15 110/48 11/09/18 10:00 106/43 11/09/18 10:00 82 21 106/43 (64) 100 11/09/18 09:45 114/51 11/09/18 09:45 84 22 114/51 (72) 100 11/09/18 09:20 105/54 11/09/18 09:00 81 21 105/54 (71) 100 11/09/18 09:00 80 105/54 11/09/18 09:00 105/54 11/09/18 08:56 100 11/09/18 08:43 81 21 28 11/09/18 08:00 79 11/09/18 08:00 98.9 84 18 108/56 (73) 100 11/09/18 08:00 28 11/09/18 08:00 112/66 11/09/18 08:00 Mechanical Ventilator 11/09/18 07:09 79 17 28 11/09/18 07:00 80 16 99/53 (68) 100 11/09/18 07:00 99/53 11/09/18 06:00 79 16 117/70 (86) 100 11/09/18 06:00 117/70 11/09/18 05:08 83 18 28 11/09/18 05:00 107/62 11/09/18 05:00 86 17 107/62 (77) 100 11/09/18 04:00 87 11/09/18 04:00 28 11/09/18 04:00 94 21 114/64 (81) 99 11/09/18 04:00 114/64 11/09/18 04:00 Mechanical Ventilator 11/09/18 03:00 92 19 98/54 (69) 99 11/09/18 03:00 98/54 11/09/18 02:57 91 19 28 11/09/18 02:00 91 18 107/56 (73) 99 11/09/18 02:00 107/56 11/09/18 01:00 95 19 100/56 (71) 100 11/09/18 01:00 87 22 28 8/19/19 01:00 100/56 11/09/18 00:30 88/46 11/09/18 00:17 93/51 11/09/18 00:00 87 11/09/18 00:00 99.2 88 19 88/46 (60) 100 11/09/18 00:00 Mechanical Ventilator 11/09/18 00:00 28 11/08/18 23:21 84 19 28 11/08/18 23:00 134/68 11/08/18 23:00 84 18 134/68 (90) 99 11/08/18 22:00 89 20 112/54 (73) 99 11/08/18 22:00 112/54 11/08/18 21:45 92 18 100 Mechanical Ventilator 28 11/08/18 21:26 96 19 100 Mechanical Ventilator 28 11/08/18 21:23 96 20 28 11/08/18 21:00 98 90/52 11/08/18 21:00 96/55 11/08/18 21:00 96 19 96/55 (69) 100 11/08/18 20:00 98.9 96 20 90/53 (65) 100 11/08/18 20:00 98 11/08/18 20:00 Mechanical Ventilator 11/08/18 20:00 28 11/08/18 20:00 90/53 11/08/18 19:00 106/59 11/08/18 19:00 92 20 100/58 (72) 100 11/08/18 18:55 92 19 28 11/08/18 18:30 92 16 93/53 (66) 100 11/08/18 18:00 96/51 11/08/18 18:00 95 16 96/53 (67) 100 11/08/18 17:30 92 19 95/53 (67) 100 11/08/18 17:17 94 19 28 11/08/18 17:00 97/54 11/08/18 17:00 93 18 97/52 (67) 100 11/08/18 16:30 87 16 94/52 (66) 100 11/08/18 16:00 Mechanical Ventilator 11/08/18 16:00 102/55 11/08/18 16:00 98.6 91 18 103/56 (72) 100 11/08/18 16:00 28 11/08/18 16:00 94 11/08/18 15:39 90 19 28 8/18/19 15:00 113/60 11/08/18 15:00 86 19 128/64 (85) 100 11/08/18 14:30 75 16 125/65 (85) 100 Height (Feet): 5 Height (Inches): 4.00 Weight (Pounds): 210 Objective General Appearance: WD/WN, no apparent distress, alert Cardiovascular: normal rate Respiratory/Chest: normal breath sounds, no respiratory distress Abdominal Exam: normal bowel sounds, non tender, soft, GT site - c/d/i Extremities: non-tender Laboratory Tests Test 11/09/18 03:35 White Blood Count 8.2 K/UL (4.8-10.8) Red Blood Count 4.55 M/UL (4.70-6.10) L Hemoglobin 13.2 G/DL (14.2-18.0) L Hematocrit 41.4 % (42.0-52.0) L Mean Corpuscular Volume 91 FL (80-99) Mean Corpuscular Hemoglobin 29.0 PG (27.0-31.0) Mean Corpuscular Hemoglobin Concent 31.9 G/DL (32.0-36.0) L Red Cell Distribution Width 19.3 % (11.6-14.8) H Platelet Count 488 K/UL (150-450) H Mean Platelet Volume 5.6 FL (6.5-10.1) L Neutrophils (%) (Auto) 56.5 % (45.0-75.0) Lymphocytes (%) (Auto) 31.1 % (20.0-45.0) Monocytes (%) (Auto) 10.5 % (1.0-10.0) H Eosinophils (%) (Auto) 0.4 % (0.0-3.0) Basophils (%) (Auto) 1.6 % (0.0-2.0) Sodium Level 138 MMOL/L (136-145) Potassium Level 3.6 MMOL/L (3.5-5.1) Chloride Level 104 MMOL/L (98-107) Carbon Dioxide Level 25 MMOL/L (21-32) Anion Gap 9 mmol/L (5-15) Blood Urea Nitrogen 13 mg/dL (7-18) Creatinine 0.5 MG/DL (0.55-1.30) L Estimat Glomerular Filtration Rate > 60 mL/min (>60) Glucose Level 152 MG/DL (74-106) H Calcium Level 8.2 MG/DL (8.5-10.1) L Phosphorus Level 2.1 MG/DL (2.5-4.9) L Magnesium Level 2.1 MG/DL (1.8-2.4) Total Bilirubin 0.9 MG/DL (0.2-1.0) Aspartate Amino Transf (AST/SGOT) 60 U/L (15-37) H Alanine Aminotransferase (ALT/SGPT) 64 U/L (12-78) Alkaline Phosphatase 514 U/L (46-116) H Total Protein 7.1 G/DL (6.4-8.2) Albumin 2.4 G/DL (3.4-5.0) L Globulin 4.7 g/dL Albumin/Globulin Ratio 0.5 (1.0-2.7) L Current Medications Medications (Trade) Dose Ordered Sig/Vicneta Route PRN Reason Start Time Stop Time Status Last Admin Dose Admin Acetaminophen (Tylenol) 650 mg Q4H PRN ORAL fever 11/03/18 12:30 11/27/18 12:29 11/05/18 19:18 Acetaminophen (Tylenol) 650 mg Q4H PRN RECTAL Mild Pain (Pain Scale 1-3) 11/03/18 14:45 11/28/18 10:44 Chlorhexidine Gluconate (Caitlyn-Hex 2%) 1 applic DAILY@1999 TOPIC 11/03/18 20:00 11/28/18 19:59 11/08/18 20:24 Colistimethate Sodium (Colistin *inhalation use only*) 150 mg Q12HR@10,22 INH 11/06/18 22:00 11/13/18 21:59 11/09/18 10:45 Dextrose (Dextrose 50%) 25 ml Q30M PRN IV Hypoglycemia 11/03/18 12:30 11/27/18 14:29 Dextrose (Dextrose 50%) 50 ml Q30M PRN IV Hypoglycemia 11/03/18 12:30 11/27/18 14:29 Docusate Sodium (Colace) 100 mg BID GT 11/03/18 18:00 12/03/18 17:59 11/09/18 09:18 Gabapentin (Neurontin) 600 mg Q6HR GT 11/03/18 12:00 11/27/18 17:59 11/09/18 11:58 Heparin Sodium (Porcine) (Heparin 5000 units/ml) 5,000 units EVERY 12 HOURS SUBQ 11/03/18 21:00 11/27/18 20:59 11/09/18 09:21 Levetiracetam 100 ml @ 400 mls/hr Q12HR IVPB 11/03/18 21:00 11/30/18 20:59 11/09/18 09:19 Lorazepam (Ativan 2mg/ml 1ml) 1 mg Q4H PRN IV agitation 11/03/18 12:11 11/10/18 12:10 11/06/18 21:18 Meropenem 1 gm/ Sodium Chloride 55 ml @ 110 mls/hr Q8HR IVPB 11/03/18 14:00 11/13/18 13:59 11/09/18 05:40 Metoclopramide HCl (Reglan) 10 mg Q6H PRN IVP severe nausea 11/03/18 12:11 12/03/18 12:10 Metoprolol Tartrate (Lopressor) 12.5 mg Q12HR ORAL 11/08/18 21:00 12/08/18 20:59 Midodrine (Pro-Amatine) 10 mg EVERY 8 HOURS ORAL 11/04/18 14:00 12/04/18 13:59 11/08/18 21:31 Mineral Oil (Fleet's Mineral Oil Enema) 133 ml EVERY OTHER DAY RECTAL 11/04/18 09:00 11/30/18 08:59 Minocycline HCl (Minocin) 100 mg Q12H ORAL 11/07/18 05:00 11/14/18 04:59 11/09/18 05:40 Morphine Sulfate (Morphine Sulfate) 2 mg Q4H PRN IVP severe Pain (Pain Scale 7-10) 11/03/18 12:12 11/10/18 12:11 Nitroglycerin (Ntg) 0.4 mg Q5M X 3 DOSES PRN SL Prn Chest Pain 11/03/18 12:12 12/03/18 12:11 Norepinephrine Bitartrate 4 mg/ Dextrose 250 ml @ 0 mls/hr Q24H IV 11/03/18 13:00 12/03/18 12:59 11/09/18 09:20 Pantoprazole (Protonix) 40 mg DAILY IV 11/04/18 09:00 11/28/18 08:59 11/09/18 09:19 Polyethylene Glycol (Miralax) 17 gm BEDTIME GT 11/03/18 21:00 12/03/18 20:59 11/08/18 21:31 Polyethylene Glycol (Miralax) 17 gm HSPRN PRN GT Constipation 11/03/18 12:12 12/03/18 12:11 Potassium Phosphate 30 mm/ Sodium Chloride 285 ml @ 47.5 mls/hr ONCE IV 11/09/18 09:00 11/09/18 15:00 11/09/18 09:19 Vancomycin HCl (Vanco rx to dose) 1 ea DAILY PRN MISC Per rx protocol 11/06/18 14:00 12/06/18 13:59 Vancomycin HCl 1 gm/Dextrose 275 ml @ 183.708 mls/hr Q12HR@0500,1700 IVPB 11/06/18 17:00 11/11/18 16:59 11/09/18 05:40 Zinc Oxide (Zinc Oxide) 1 applic TIDPRN PRN TOPIC around g tube site 11/03/18 13:00 12/03/18 12:59 Kimi Ramos M.D. Nov 09, 2018 14:22
--- NOTE | 2018-11-09 14:53 | NUR ---
RESPIRATORY NOTE: pt has been on CPAP PS 8 as of 829. RN aware. no new orders yet for pt. will cont to monitor. pt in apparent resp distress. tolerating weaning well.
--- NOTE | 2018-11-09 15:08 | Cardiac Electrophysiology PN ---
Assessment/Plan Assessment/Plan 1. Sinus tachycardia . DC metoprolol in view of hypotension needing pressors 2. Septic shock on Levophed and Midodrine and Abc. 3. Dysphagia, status post GJ-tube malfunction. S/P new GJ-tube placement 11/02/18 4. Respiratory failure, tracheostomy in place 5. Seizure disorder. 6. COPD. 7. Gastroesophageal reflux disease. 8. Neurogenic bladder status post suprapubic catheter. 9. Hypothyroidism. 10. Quadriplegia. 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 Subjective In ICU on the vent and Levophed but alert and responsive Objective Last 24 Hour Vital Signs Date Time Temp Pulse Resp B/P (MAP) Pulse Ox O2 Delivery O2 Flow Rate FiO2 11/09/18 14:44 72 21 28 11/09/18 13:42 103/47 11/09/18 13:30 100/45 11/09/18 13:15 104/43 11/09/18 13:00 104/43 11/09/18 12:45 80 1 104/43 (63) 100 11/09/18 12:44 124/51 11/09/18 12:30 77 6 124/51 (75) 100 11/09/18 12:30 124/51 11/09/18 12:30 78 22 28 11/09/18 12:15 76 0 108/46 (66) 100 11/09/18 12:15 108/46 11/09/18 12:00 109/47 11/09/18 12:00 28 11/09/18 12:00 Mechanical Ventilator 11/09/18 12:00 98.4 78 0 109/47 (67) 100 11/09/18 12:00 80 11/09/18 11:45 75 0 113/48 (69) 100 11/09/18 11:45 113/48 11/09/18 11:30 79 0 106/53 (70) 100 11/09/18 11:30 106/53 11/09/18 11:15 109/49 11/09/18 11:15 82 18 109/49 (69) 100 11/09/18 11:07 82 22 28 11/09/18 11:07 84 22 100 Mechanical Ventilator 28 11/09/18 11:00 122/49 11/09/18 11:00 82 19 122/49 (73) 100 11/09/18 10:45 78 22 122/53 (76) 100 11/09/18 10:45 122/53 11/09/18 10:45 85 24 100 Mechanical Ventilator 28 11/09/18 10:30 113/51 11/09/18 10:30 81 21 113/51 (71) 100 11/09/18 10:15 85 23 110/48 (68) 100 11/09/18 10:15 110/48 11/09/18 10:00 106/43 11/09/18 10:00 82 21 106/43 (64) 100 11/09/18 09:45 114/51 11/09/18 09:45 84 22 114/51 (72) 100 11/09/18 09:20 105/54 11/09/18 09:00 81 21 105/54 (71) 100 11/09/18 09:00 80 105/54 11/09/18 09:00 105/54 11/09/18 08:56 100 11/09/18 08:43 81 21 28 11/09/18 08:00 79 11/09/18 08:00 98.9 84 18 108/56 (73) 100 11/09/18 08:00 28 11/09/18 08:00 112/66 11/09/18 08:00 Mechanical Ventilator 11/09/18 07:09 79 17 28 11/09/18 07:00 80 16 99/53 (68) 100 11/09/18 07:00 99/53 11/09/18 06:00 79 16 117/70 (86) 100 11/09/18 06:00 117/70 11/09/18 05:08 83 18 28 11/09/18 05:00 107/62 11/09/18 05:00 86 17 107/62 (77) 100 11/09/18 04:00 87 11/09/18 04:00 28 11/09/18 04:00 94 21 114/64 (81) 99 11/09/18 04:00 114/64 11/09/18 04:00 Mechanical Ventilator 11/09/18 03:00 92 19 98/54 (69) 99 11/09/18 03:00 98/54 11/09/18 02:57 91 19 28 11/09/18 02:00 91 18 107/56 (73) 99 11/09/18 02:00 107/56 11/09/18 01:00 95 19 100/56 (71) 100 11/09/18 01:00 87 22 28 11/09/18 01:00 100/56 11/09/18 00:30 88/46 11/09/18 00:17 93/51 11/09/18 00:00 87 11/09/18 00:00 99.2 88 19 88/46 (60) 100 11/09/18 00:00 Mechanical Ventilator 11/09/18 00:00 28 11/08/18 23:21 84 19 28 11/08/18 23:00 134/68 11/08/18 23:00 84 18 134/68 (90) 99 11/08/18 22:00 89 20 112/54 (73) 99 11/08/18 22:00 112/54 11/08/18 21:45 92 18 100 Mechanical Ventilator 28 11/08/18 21:26 96 19 100 Mechanical Ventilator 28 11/08/18 21:23 96 20 28 11/08/18 21:00 98 90/52 11/08/18 21:00 96/55 11/08/18 21:00 96 19 96/55 (69) 100 11/08/18 20:00 98.9 96 20 90/53 (65) 100 11/08/18 20:00 98 11/08/18 20:00 Mechanical Ventilator 11/08/18 20:00 28 11/08/18 20:00 90/53 11/08/18 19:00 106/59 11/08/18 19:00 92 20 100/58 (72) 100 11/08/18 18:55 92 19 28 11/08/18 18:30 92 16 93/53 (66) 100 11/08/18 18:00 96/51 11/08/18 18:00 95 16 96/53 (67) 100 11/08/18 17:30 92 19 95/53 (67) 100 11/08/18 17:17 94 19 28 11/08/18 17:00 97/54 11/08/18 17:00 93 18 97/52 (67) 100 11/08/18 16:30 87 16 94/52 (66) 100 11/08/18 16:00 Mechanical Ventilator 11/08/18 16:00 102/55 11/08/18 16:00 98.6 91 18 103/56 (72) 100 11/08/18 16:00 28 11/08/18 16:00 94 11/08/18 15:39 90 19 28 Intake and Output 11/08/18 11/09/18 19:00 07:00 Intake Total 1980.625 ml 1663.658 ml Output Total 850 ml 1257 ml Balance 1130.625 ml 406.658 ml Free Water 120 ml IV Total 1080.625 ml 683.658 ml Tube Feeding 780 ml 780 ml Other 200 ml Output Urine Total 850 ml 1257 ml Other 0 ml 0 ml Laboratory Tests Test 11/09/18 03:35 White Blood Count 8.2 K/UL (4.8-10.8) Red Blood Count 4.55 M/UL (4.70-6.10) L Hemoglobin 13.2 G/DL (14.2-18.0) L Hematocrit 41.4 % (42.0-52.0) L Mean Corpuscular Volume 91 FL (80-99) Mean Corpuscular Hemoglobin 29.0 PG (27.0-31.0) Mean Corpuscular Hemoglobin Concent 31.9 G/DL (32.0-36.0) L Red Cell Distribution Width 19.3 % (11.6-14.8) H Platelet Count 488 K/UL (150-450) H Mean Platelet Volume 5.6 FL (6.5-10.1) L Neutrophils (%) (Auto) 56.5 % (45.0-75.0) Lymphocytes (%) (Auto) 31.1 % (20.0-45.0) Monocytes (%) (Auto) 10.5 % (1.0-10.0) H Eosinophils (%) (Auto) 0.4 % (0.0-3.0) Basophils (%) (Auto) 1.6 % (0.0-2.0) Sodium Level 138 MMOL/L (136-145) Potassium Level 3.6 MMOL/L (3.5-5.1) Chloride Level 104 MMOL/L (98-107) Carbon Dioxide Level 25 MMOL/L (21-32) Anion Gap 9 mmol/L (5-15) Blood Urea Nitrogen 13 mg/dL (7-18) Creatinine 0.5 MG/DL (0.55-1.30) L Estimat Glomerular Filtration Rate > 60 mL/min (>60) Glucose Level 152 MG/DL (74-106) H Calcium Level 8.2 MG/DL (8.5-10.1) L Phosphorus Level 2.1 MG/DL (2.5-4.9) L Magnesium Level 2.1 MG/DL (1.8-2.4) Total Bilirubin 0.9 MG/DL (0.2-1.0) Aspartate Amino Transf (AST/SGOT) 60 U/L (15-37) H Alanine Aminotransferase (ALT/SGPT) 64 U/L (12-78) Alkaline Phosphatase 514 U/L (46-116) H Total Protein 7.1 G/DL (6.4-8.2) Albumin 2.4 G/DL (3.4-5.0) L Globulin 4.7 g/dL Albumin/Globulin Ratio 0.5 (1.0-2.7) L Objective HEAD AND NECK: No JVD or carotid bruits. Status post tracheostomy. LUNGS: Coarse rhonchi. CARDIOVASCULAR: Shows regular S1 and S2 with no gallop or murmur. ABDOMEN: Soft. The GJ-tube is out. EXTREMITIES: No pitting edema. Rai Dobbs MD Nov 09, 2018 15:08
--- NOTE | 2018-11-09 15:16 | NUR ---
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
--- NOTE | 2018-11-09 16:00 | NUR ---
NURSE NOTES: Patient resting in bed in semi-fowlers position with eyes closed at this time. Patient remains alert to self and place but confused to purpose and time. patient showing sinus rhythm on the hall monitor with rate of 78bpm, blood pressure 111/49, temp 98.6, RR 17, SpO2 100%. Patient remains on trach to ventilator with setting of CPAP pressure support 8, FiO2 28%, and PEEP 5. Patient tolerating weaning with no sign of acute distress. gastrostomy tube patent and asymptomatic and running tube feeding of osmolite 1.2 at 65mL/hr at this time with no residual. Suprapubic catheter patent, asymptomatic, and draining at this time. Dressing intact and asymptomatic. No leakage noted from the penis at this time. Patient has consistent urine output of about 150mL/hr. Right upper arm PICC line remains patent, asymptomatic, and running Levophed drip now at 2mcg/hr. Will continue to monitor and titrate levophed drip per protocol. Patient bed in low position with bed alarm on and call light in reach at this time. Will continue to monitor.
--- NOTE | 2018-11-09 17:15 | NUR ---
NURSE NOTES: Patient complaining that he does not have enough oxygen. His oxygen saturation is 100% at this time. Patient placed back on AC 14, tidal volume 500, FiO2 28% and PEEP 5. Patient continued to complain of lack of oxygen. Oxygen increased to 35% and then 45% and then 55%. I explained to the patient that his oxygen saturation is stable at 100%, his RR is 18 and his ABG value was good with 28% FiO2 on CPAP pressure support 8. I explained to the patient that we don't want to over oxygenate him. Patient expressed understanding.
--- NOTE | 2018-11-09 19:33 | NUR ---
HAND-OFF: Report given to OPAL Eldridge. Patient blood pressure 104/47 on levophed 1mcg/hr at this time. Endorsed to follow up.
--- NOTE | 2018-11-09 19:35 | NUR ---
NURSE NOTES: Received change of shift report from OPAL Mayen. Pt is asleep, awakens to name/touch, responds by nodding head to yes/no questions. Pt has trach Shiley 6.0 connected to vent with settings AC14, VT500, Peep 5.0, FIO2 28% with O2sat at 100%, and bilateral inspiratory/expiratory rhonchi heard on auscultation. night monitor displays NSR with heart rate now in the low 60's, while pt is maintained on Levophed drip with current rate at 1mcg/min via right upper arm double lumen PICC line. Weak peripheral pulses noted on palpation with generalized edema. Abdomen is large, round, soft/nontender to touch with active bowel sounds in all quadrants. GJ tube is present on upper quadrant with feeding Osmolyte 1.2 infusing at goal rate of 65ml/hr. Pt is tolerating feeding well with no residual. Suprapubic catheter is in place, draining yellow/mildly cloudy with sediments urine. Skin has optifoam dressing on sacrum, intact/dry. Pt has bilateral upper and lower extremity contracture and is on P200 pressure release mattress. Head of bed at 30 degrees, bed in lowest position, three side rails up and locked. Will continue to monitor pt and follow plan of care per MD orders and protocol.
--- NOTE | 2018-11-09 19:35 | Internal Med Progress Note ---
Subjective Date of Service: Nov 09, 2018 Physician Name Isidro Hernandez Attending Physician Bruno Ko MD Current Medications Medications (Trade) Dose Ordered Sig/Vicenta Route PRN Reason Start Time Stop Time Status Last Admin Dose Admin Acetaminophen (Tylenol) 650 mg Q4H PRN ORAL fever 11/03/18 12:30 11/27/18 12:29 11/05/18 19:18 Acetaminophen (Tylenol) 650 mg Q4H PRN RECTAL Mild Pain (Pain Scale 1-3) 11/03/18 14:45 11/28/18 10:44 Chlorhexidine Gluconate (Caitlyn-Hex 2%) 1 applic DAILY@2000 TOPIC 11/03/18 20:00 11/28/18 19:59 11/08/18 20:24 Colistimethate Sodium (Colistin *inhalation use only*) 150 mg Q12HR@10,22 INH 11/06/18 22:00 11/13/18 21:59 11/09/18 10:45 Dextrose (Dextrose 50%) 25 ml Q30M PRN IV Hypoglycemia 11/03/18 12:30 11/27/18 14:29 Dextrose (Dextrose 50%) 50 ml Q30M PRN IV Hypoglycemia 11/03/18 12:30 11/27/18 14:29 Docusate Sodium (Colace) 100 mg BID GT 11/03/18 18:00 12/03/18 17:59 11/09/18 09:18 Gabapentin (Neurontin) 600 mg Q6HR GT 11/03/18 12:00 11/27/18 17:59 11/09/18 17:37 Heparin Sodium (Porcine) (Heparin 5000 units/ml) 5,000 units EVERY 12 HOURS SUBQ 11/03/18 21:00 11/27/18 20:59 11/09/18 09:21 Levetiracetam 100 ml @ 400 mls/hr Q12HR IVPB 11/03/18 21:00 11/30/18 20:59 11/09/18 09:19 Lorazepam (Ativan 2mg/ml 1ml) 1 mg Q4H PRN IV agitation 11/03/18 12:11 11/10/18 12:10 11/06/18 21:18 Meropenem 1 gm/ Sodium Chloride 55 ml @ 110 mls/hr Q8HR IVPB 11/03/18 14:00 11/13/18 13:59 11/09/18 14:32 Metoclopramide HCl (Reglan) 10 mg Q6H PRN IVP severe nausea 11/03/18 12:11 12/03/18 12:10 Midodrine (Pro-Amatine) 10 mg EVERY 8 HOURS ORAL 11/04/18 14:00 12/04/18 13:59 11/09/18 14:24 Mineral Oil (Fleet's Mineral Oil Enema) 133 ml EVERY OTHER DAY RECTAL 11/04/18 09:00 11/30/18 08:59 Minocycline HCl (Minocin) 100 mg Q12H ORAL 11/07/18 05:00 11/14/18 04:59 11/09/18 17:37 Morphine Sulfate (Morphine Sulfate) 2 mg Q4H PRN IVP severe Pain (Pain Scale 7-10) 11/03/18 12:12 11/10/18 12:11 Nitroglycerin (Ntg) 0.4 mg Q5M X 3 DOSES PRN SL Prn Chest Pain 11/03/18 12:12 12/03/18 12:11 Norepinephrine Bitartrate 4 mg/ Dextrose 250 ml @ 0 mls/hr Q24H IV 11/03/18 13:00 12/03/18 12:59 11/09/18 09:20 Pantoprazole (Protonix) 40 mg DAILY IV 11/04/18 09:00 11/28/18 08:59 11/09/18 09:19 Polyethylene Glycol (Miralax) 17 gm BEDTIME GT 11/03/18 21:00 12/03/18 20:59 11/08/18 21:31 Polyethylene Glycol (Miralax) 17 gm HSPRN PRN GT Constipation 11/03/18 12:12 12/03/18 12:11 Zinc Oxide (Zinc Oxide) 1 applic TIDPRN PRN TOPIC around g tube site 11/03/18 13:00 12/03/18 12:59 Allergies: Coded Allergies: SULFAMETHOXAZOLE (Verified Allergy, Unknown, 10/18/17) TRIMETHOPRIM (Verified Allergy, Unknown, 10/18/17) ROS Limited/Unobtainable: Yes Subjective 57 YO M admitted with J-tube malfunction. Now sepsis. Cover for Int Med-Dr Ko. S/P endoscopy 11/02/18. ICU. Intubated and sedated Objective Last Vital Signs Date Time Temp Pulse Resp B/P (MAP) Pulse Ox O2 Delivery O2 Flow Rate FiO2 11/09/18 19:00 78 19 101/47 (65) 100 11/09/18 16:40 30 11/09/18 16:00 98.6 11/09/18 16:00 Mechanical Ventilator 11/05/18 13:50 65.0 Laboratory Tests Test 11/09/18 03:35 White Blood Count 8.2 K/UL (4.8-10.8) Red Blood Count 4.55 M/UL (4.70-6.10) L Hemoglobin 13.2 G/DL (14.2-18.0) L Hematocrit 41.4 % (42.0-52.0) L Mean Corpuscular Volume 91 FL (80-99) Mean Corpuscular Hemoglobin 29.0 PG (27.0-31.0) Mean Corpuscular Hemoglobin Concent 31.9 G/DL (32.0-36.0) L Red Cell Distribution Width 19.3 % (11.6-14.8) H Platelet Count 488 K/UL (150-450) H Mean Platelet Volume 5.6 FL (6.5-10.1) L Neutrophils (%) (Auto) 56.5 % (45.0-75.0) Lymphocytes (%) (Auto) 31.1 % (20.0-45.0) Monocytes (%) (Auto) 10.5 % (1.0-10.0) H Eosinophils (%) (Auto) 0.4 % (0.0-3.0) Basophils (%) (Auto) 1.6 % (0.0-2.0) Sodium Level 138 MMOL/L (136-145) Potassium Level 3.6 MMOL/L (3.5-5.1) Chloride Level 104 MMOL/L (98-107) Carbon Dioxide Level 25 MMOL/L (21-32) Anion Gap 9 mmol/L (5-15) Blood Urea Nitrogen 13 mg/dL (7-18) Creatinine 0.5 MG/DL (0.55-1.30) L Estimat Glomerular Filtration Rate > 60 mL/min (>60) Glucose Level 152 MG/DL (74-106) H Calcium Level 8.2 MG/DL (8.5-10.1) L Phosphorus Level 2.1 MG/DL (2.5-4.9) L Magnesium Level 2.1 MG/DL (1.8-2.4) Total Bilirubin 0.9 MG/DL (0.2-1.0) Aspartate Amino Transf (AST/SGOT) 60 U/L (15-37) H Alanine Aminotransferase (ALT/SGPT) 64 U/L (12-78) Alkaline Phosphatase 514 U/L (46-116) H Total Protein 7.1 G/DL (6.4-8.2) Albumin 2.4 G/DL (3.4-5.0) L Globulin 4.7 g/dL Albumin/Globulin Ratio 0.5 (1.0-2.7) L Intake and Output 11/08/18 11/09/18 19:00 07:00 Intake Total 1980.625 ml 1663.658 ml Output Total 850 ml 1257 ml Balance 1130.625 ml 406.658 ml Free Water 120 ml IV Total 1080.625 ml 683.658 ml Tube Feeding 780 ml 780 ml Other 200 ml Output Urine Total 850 ml 1257 ml Other 0 ml 0 ml Objective PHYSICAL EXAMINATION: GENERAL: The patient is a well-developed and well-nourished white male, in no apparent distress. HEENT: Eyes, pupils are equal and responsive to light and accommodation. Extraocular movements are intact. NECK: Supple without lymphadenopathy. CHEST: Lungs are clear to auscultation bilaterally without wheezes or rales. CARDIOVASCULAR: Regular rhythm and rate. S1 and S2 are normal without murmurs, rubs, or gallops. ABDOMEN: Soft, nontender, and nondistended. Positive bowel sounds. No evidence of hepatosplenomegaly. Currently, no rebound or guarding noted. EXTREMITIES: Negative for clubbing, cyanosis, or edema. RECTAL/GENITAL: Not performed. NEUROLOGIC: Cranial nerves II through XII are grossly intact without focal deficits. Motor strength is 5/5 bilaterally. Deep tendon reflexes are 2+ plantar. Assessment/Plan Assessment/Plan ASSESSMENT: This is a 57-year-old male. 1. Gastrostomy tube malfunction. 2. Respiratory failure. 3. Seizure disorder. 4. Chronic obstructive pulmonary disease. 5. Gastroesophageal reflux disease. 6. Neurogenic bladder. 7. Hypothyroidism. 8. Quadriplegia. 9. Tracheostomy in situ. 10. Sepsis=ESBL Proteus mirabilis TREATMENT: 1. J-tube malfunction. A Gastroenterology consultation has been obtained with Dr. Kvng Lehman. scheduled endoscopic replacement of J-tube on October 30, 2018 postponed due to hypokalemia. Reschedule per GI 2. Respiratory failure. A Pulmonary consultation has been obtained with Dr. Mellissa Garcia. Continue DuoNebs as above. 3. Seizure disorder. Continue Keppra and Neurontin as above. 4. Chronic obstructive pulmonary disease. As above, a Pulmonary consultation has been obtained with Dr. Mellissa Garcia. 5. Gastroesophageal reflux disease. Continue famotidine as above. 6. Neurogenic bladder. The patient is status post suprapubic catheter placement. 7. Hypothyroidism. Continue Levoxyl as above. 8. Quadriplegia. 9. Tracheostomy in situ. 10. Hypokalemia. Replace K+ 11. ABX=meropenem per ID 12. S/P endoscopy with jejunostomy tube placed 11/02/18 Isidro Hernandez MD Nov 09, 2018 19:35
[2018-11-09] MEDS: Miralax 17gm pkt GT SCH (20:37)
[2018-11-09] MEDS: Dyna-Hex 2% Top Sol 2oz TOPIC SCH (20:38)
--- NOTE | 2018-11-09 22:00 | NUR ---
NURSE NOTES: Pt's resting in bed, in no acute distress. VS stable. Will continue to monitor.
--- NOTE | 2018-11-09 23:00 | NUR ---
NURSE NOTES: BP 99/38, attempted to wean the pt off Levophed. Will continue to monitor.
[2018-11-10] VITALS (50 sets, daily range): BP systolic 79–152; BP diastolic 35–59
--- NOTE | 2018-11-10 | NUR ---
NURSE NOTES: Pt's resting in bed, in no acute distress. VS stable. Will continue to monitor.
--- NOTE | 2018-11-10 01:30 | NUR ---
NURSE NOTES: Pt's resting in bed, in no acute distress. BP 81/39, resumed his Levophed at 1mcg/min. Will continue to monitor.
--- NOTE | 2018-11-10 02:00 | NUR ---
NURSE NOTES: Pt's resting in bed, asleep, in no acute distress. VS stable. Will continue to monitor.
--- NOTE | 2018-11-10 04:00 | NUR ---
NURSE NOTES: Pt's resting in bed, in no acute distress. VS stable. Will continue to monitor.
[2018-11-10 04:58] LABS: BASOPHILS % (AUTO) 1.3 % (0.0-2.0); EOSINOPHILS % (AUTO) 1.9 % (0.0-3.0); HEMATOCRIT 37.6 % (42.0-52.0); HEMOGLOBIN 12.1 G/DL (14.2-18.0); LYMPHOCYTES % (AUTO) 32.3 % (20.0-45.0); MEAN CORPUSCULAR VOLUME 92 FL (80-99); MONOCYTES % (AUTO) 12.3 % (1.0-10.0); NEUTROPHILS % (AUTO) 52.2 % (45.0-75.0); PLATELET COUNT 300 K/UL (150-450); RED CELL DISTRIBUTION WIDTH 19.3 % (11.6-14.8); WHITE BLOOD COUNT 6.3 K/UL (4.8-10.8)
[2018-11-10 05:26] LABS: ALANINE AMINOTRANSFERASE 62 U/L (12-78); ALBUMIN 2.2 G/DL (3.4-5.0); ALBUMIN/GLOBULIN RATIO 0.5 (1.0-2.7); ALKALINE PHOSPHATASE 451 U/L (46-116); ANION GAP 7 mmol/L (5-15); ASPARTATE AMINO TRANSFERASE 55 U/L (15-37); BILIRUBIN,TOTAL 0.8 MG/DL (0.2-1.0); BLOOD UREA NITROGEN 16 mg/dL (7-18); CALCIUM 8.3 MG/DL (8.5-10.1); CARBON DIOXIDE 26 MMOL/L (21-32); CHLORIDE 109 MMOL/L (98-107); CREATININE 0.5 MG/DL (0.55-1.30); PHOSPHORUS 2.9 MG/DL (2.5-4.9); POTASSIUM 4.2 MMOL/L (3.5-5.1); SODIUM 142 MMOL/L (136-145)
[2018-11-10] MEDS: Midodrine 10mg tab ORAL SCH ×3 (05:37→22:54)
[2018-11-10] MEDS: Meropenem 1 GM in NS 55 ML IVPB SCH ×3 (05:37→22:55)
[2018-11-10] MEDS: Gabapentin 300 MG/6 ML Soln GT SCH ×3 (05:38→17:37)
[2018-11-10] MEDS: Minocycline HCl 50mg cap ORAL SCH ×2 (05:38→17:37)
--- NOTE | 2018-11-10 06:00 | NUR ---
NURSE NOTES: Pt's resting in bed, in no acute distress. Watching TV. VS stable. Will continue to monitor.
--- NOTE | 2018-11-10 07:00 | NUR ---
RESPIRATORY NOTES: Weaning trial passed. Placed patient on PS +8 PEEP +5 FIO2 28%. Patient tolerating well. Will continue to monitor.
--- NOTE | 2018-11-10 07:05 | NUR ---
NURSE NOTES: Received patient from [facility]. Patient resting in bed at this time with no sign of acute distress. Patient alert and oriented to person and place but confused to time and purpose. Patient communicates by getting your attention with a quacking noise and then mouthing what he wants. Patient placed on CPAP with pressure support of 8, PEEP 5, and FiO2 28%. Patient tolerating weaning trial with no sign of acute distress. Blood pressure 128/52, HR 65 with sinus rhythm on the coverage specialist, SpO2 100%, RR 23, and temp 98.7. Patient denies acute distress. Patient tube feeding held at this time for weaning trial. Patient has tube feeding order of osmolite 1.2 with goal of 65mL/hr. Will resume feeding after weaning trial complete. Patient has gastrosomy tube that was changed upon admission on 10/29. Patient has minimal brown/red discharge at the G tube site and a small skin tear also at the G tube site. Site covered with moisture barrier cream, triad, and 4x4 dressing for protection. Patient has a right upper arm PICC line that is patent, asymptomatic, and dressing changed on 11/05. Patient running levophed drip at 1mcg/hr at this time with blood pressure of 128/52. Will attempt to turn off the levophed drip and continue to monitor patient blood pressure. Patient has suprapubic catheter with dressing intact. Catheter intact, asymptomatic, and draining at this time. No leakage noted. No redness or discharge noted. Dressing clean and intact. Urine clear and yellow at this time with no sediment. Patient urine output about 100-150mL/hr at this time. Patient bilateral upper and lower limbs contracted. Edema non-pitting noted in the upper extremity. Patient has healed sacral and left hop wounds that are covered with optifoam for protection. Patient bed elbows and heels elevated on pillows and patient on low air loss mattress at this time. Patient bed in low position with bed alarm on and call light in reach at this time. Will continue to monitor respiratory effort on weaning trial and blood pressure off of Levophed drip.
--- NOTE | 2018-11-10 07:15 | NUR ---
NURSE NOTES: Patient blood pressure 128/52. Levophed drip turned off at this time. Will continue to monitor blood pressure and turn Levophed drip back on as needed, per protocol. Addendum: 11/10/18 at 08 by Tiarra Nieves RN Patient turned and repositioned and oral care performed at this time.
--- NOTE | 2018-11-10 07:20 | NUR ---
HAND-OFF: Report given to OPAL Mayen.
--- NOTE | 2018-11-10 07:58 | Urology Progress Note ---
Assessment/Plan Status: stable Assessment/Plan: 1. Urinary retention with chronic suprapubic tube. 2. Neurogenic bladder. 3. Hydronephrosis, which appears to be chronic. 4. Nephrolithiasis. 5. Cystitis. 6. Hematuria. 7. Probable colonized urine. 8. Sepsis. monitor clinically keep SP tube, last exchanged 10/24 hand irrigated and do PRN position satisfactory, intermittent leakage from penis abx as ordered consider nuclear renal scan f/u on blood cx Subjective Allergies: Coded Allergies: SULFAMETHOXAZOLE (Verified Allergy, Unknown, 10/18/17) TRIMETHOPRIM (Verified Allergy, Unknown, 10/18/17) Subjective some more SP tube output, less penile output per nurse Objective Last 24 Hour Vital Signs Date Time Temp Pulse Resp B/P (MAP) Pulse Ox O2 Delivery O2 Flow Rate FiO2 11/10/18 07:00 61 15 105/46 (65) 100 11/10/18 07:00 105/46 11/10/18 06:57 64 22 28 11/10/18 06:30 61 15 110/50 (70) 100 11/10/18 06:15 61 15 122/50 (74) 100 11/10/18 06:00 59 15 118/49 (72) 100 11/10/18 06:00 128/52 11/10/18 05:30 66 19 99/43 (61) 100 11/10/18 05:11 64 18 30 11/10/18 05:00 91/38 11/10/18 05:00 64 18 92/41 (58) 100 11/10/18 04:30 70 19 99/51 (67) 100 11/10/18 04:00 Mechanical Ventilator 11/10/18 04:00 66 19 100/40 (60) 100 11/10/18 04:00 28 11/10/18 04:00 100/45 11/10/18 04:00 74 11/10/18 03:30 64 21 94/45 (61) 100 11/10/18 03:00 104/49 11/10/18 03:00 69 21 104/49 (67) 100 11/10/18 02:30 67 22 103/43 (63) 100 11/10/18 02:30 66 21 30 11/10/18 02:00 117/53 11/10/18 02:00 61 17 111/52 (71) 100 11/10/18 01:30 66 19 95/40 (58) 100 11/10/18 01:30 81/39 11/10/18 01:00 68 18 90/37 (54) 100 11/10/18 00:30 65 14 30 11/10/18 00:30 65 17 83/37 (52) 100 11/10/18 00:00 68 17 90/38 (55) 100 11/10/18 00:00 76 11/10/18 00:00 28 11/10/18 00:00 Mechanical Ventilator 11/09/18 23:30 69 20 97/44 (61) 100 11/09/18 23:15 66 20 99/38 (58) 100 11/09/18 23:00 99/38 11/09/18 23:00 67 18 110/47 (68) 100 11/09/18 22:50 75 14 30 11/09/18 22:45 73 20 104/50 (68) 100 11/09/18 22:30 67 18 92/44 (60) 100 11/09/18 22:15 68 21 93/44 (60) 100 11/09/18 22:00 93/44 11/09/18 22:00 69 20 91/44 (60) 100 11/09/18 21:30 78 14 105/48 (67) 100 11/09/18 21:20 70 16 100 Mechanical Ventilator 28 11/09/18 21:15 61 13 103/47 (65) 100 11/09/18 21:10 68 14 100 Mechanical Ventilator 30 11/09/18 21:08 70 14 30 11/09/18 21:00 69 19 93/43 (60) 100 11/09/18 21:00 103/47 11/09/18 20:45 71 19 97/42 (60) 100 11/09/18 20:30 70 18 98/45 (62) 100 11/09/18 20:15 78 18 97/47 (64) 100 11/09/18 20:00 28 11/09/18 20:00 Mechanical Ventilator 11/09/18 20:00 97/47 11/09/18 20:00 98.9 77 20 102/48 (66) 100 11/09/18 20:00 80 11/09/18 19:00 104/47 11/09/18 19:00 78 19 101/47 (65) 100 11/09/18 18:45 96/44 11/09/18 18:40 71 20 30 11/09/18 18:30 101/47 11/09/18 18:15 106/49 11/09/18 18:00 75 16 111/53 (72) 100 11/09/18 18:00 111/53 11/09/18 17:30 75 16 102/46 (64) 100 11/09/18 17:00 105/48 11/09/18 17:00 74 15 105/48 (67) 100 11/09/18 16:45 80 19 106/46 (66) 100 11/09/18 16:40 74 20 30 11/09/18 16:30 106/46 11/09/18 16:30 78 17 109/46 (67) 100 11/09/18 16:15 81 16 111/49 (69) 100 11/09/18 16:00 72 11/09/18 16:00 109/50 11/09/18 16:00 98.6 75 15 116/52 (73) 100 11/09/18 16:00 Mechanical Ventilator 11/09/18 16:00 28 11/09/18 15:45 76 21 109/50 (69) 100 11/09/18 15:45 109/50 11/09/18 15:30 76 20 123/51 (75) 100 11/09/18 15:30 123/51 11/09/18 15:15 71 20 138/98 (111) 100 11/09/18 15:15 138/98 11/09/18 15:00 71 13 144/69 (94) 100 11/09/18 15:00 144/69 11/09/18 14:45 69 15 136/56 (82) 100 11/09/18 14:45 136/56 11/09/18 14:44 72 21 28 11/09/18 14:30 115/52 11/09/18 14:30 75 15 115/52 (73) 100 11/09/18 14:15 113/51 11/09/18 14:15 76 22 113/51 (71) 100 11/09/18 14:00 97/51 11/09/18 14:00 76 10 109/51 (70) 100 11/09/18 13:45 77 12 97/51 (66) 100 11/09/18 13:42 103/47 11/09/18 13:30 100/45 11/09/18 13:30 76 15 103/47 (65) 100 11/09/18 13:15 78 16 100/45 (63) 100 11/09/18 13:15 104/43 11/09/18 13:00 104/43 11/09/18 13:00 78 16 107/50 (69) 100 11/09/18 12:45 80 1 104/43 (63) 100 11/09/18 12:44 124/51 11/09/18 12:30 77 6 124/51 (75) 100 11/09/18 12:30 124/51 11/09/18 12:30 78 22 28 11/09/18 12:15 76 0 108/46 (66) 100 11/09/18 12:15 108/46 11/09/18 12:00 109/47 11/09/18 12:00 28 11/09/18 12:00 Mechanical Ventilator 11/09/18 12:00 98.4 78 0 109/47 (67) 100 11/09/18 12:00 80 11/09/18 11:45 75 0 113/48 (69) 100 11/09/18 11:45 113/48 11/09/18 11:30 79 0 106/53 (70) 100 11/09/18 11:30 106/53 11/09/18 11:15 109/49 11/09/18 11:15 82 18 109/49 (69) 100 11/09/18 11:07 82 22 28 11/09/18 11:07 84 22 100 Mechanical Ventilator 28 11/09/18 11:00 122/49 11/09/18 11:00 82 19 122/49 (73) 100 11/09/18 10:45 78 22 122/53 (76) 100 11/09/18 10:45 122/53 11/09/18 10:45 85 24 100 Mechanical Ventilator 28 11/09/18 10:30 113/51 11/09/18 10:30 81 21 113/51 (71) 100 11/09/18 10:15 85 23 110/48 (68) 100 11/09/18 10:15 110/48 11/09/18 10:00 106/43 11/09/18 10:00 82 21 106/43 (64) 100 11/09/18 09:45 114/51 11/09/18 09:45 84 22 114/51 (72) 100 11/09/18 09:20 105/54 11/09/18 09:00 81 21 105/54 (71) 100 11/09/18 09:00 80 105/54 11/09/18 09:00 105/54 11/09/18 08:56 100 11/09/18 08:43 81 21 28 11/09/18 08:00 79 11/09/18 08:00 98.9 84 18 108/56 (73) 100 11/09/18 08:00 28 11/09/18 08:00 112/66 11/09/18 08:00 Mechanical Ventilator Intake and Output 11/09/18 11/10/18 19:00 07:00 Intake Total 1834.160 ml 1025.625 ml Output Total 2130 ml 560 ml Balance -295.840 ml 465.625 ml Free Water 120 ml IV Total 934.160 ml 245.625 ml Tube Feeding 780 ml 780 ml Output Urine Total 2130 ml 560 ml Other 0 ml 0 ml # Bowel Movements 2 1 Microbiology Date/Time Source Procedure Growth Status 11/05/18 12:15 Blood Blood Culture - Preliminary NO GROWTH AFTER 4 DAYS Resulted 10/31/18 21:30 Sputum Gram Stain - Final Complete 10/31/18 21:30 Sputum Culture - Final A.baumanii Complx - Mdr Usual Respiratory Nataly Complete 11/03/18 12:40 Urine,Clean Catch Urine Culture - Final Yeast Species Complete 11/01/18 03:00 Abdomen Gram Stain - Final Complete 11/01/18 03:00 Wound Culture - Final A.baumanii Complx - Mdr Wanda Albicans Usual Skin Nataly Complete Current Medications Medications (Trade) Dose Ordered Sig/Vicenta Route PRN Reason Start Time Stop Time Status Last Admin Dose Admin Acetaminophen (Tylenol) 650 mg Q4H PRN ORAL fever 11/03/18 12:30 11/27/18 12:29 11/05/18 19:18 Acetaminophen (Tylenol) 650 mg Q4H PRN RECTAL Mild Pain (Pain Scale 1-3) 11/03/18 14:45 11/28/18 10:44 Chlorhexidine Gluconate (Caitlyn-Hex 2%) 1 applic DAILY@2000 TOPIC 11/03/18 20:00 11/28/18 19:59 11/09/18 20:38 Colistimethate Sodium (Colistin *inhalation use only*) 150 mg Q12HR@10,22 INH 11/06/18 22:00 11/13/18 21:59 11/09/18 21:09 Dextrose (Dextrose 50%) 25 ml Q30M PRN IV Hypoglycemia 11/03/18 12:30 11/27/18 14:29 Dextrose (Dextrose 50%) 50 ml Q30M PRN IV Hypoglycemia 11/03/18 12:30 11/27/18 14:29 Docusate Sodium (Colace) 100 mg BID GT 11/03/18 18:00 12/03/18 17:59 11/09/18 09:18 Gabapentin (Neurontin) 600 mg Q6HR GT 11/03/18 12:00 11/27/18 17:59 11/10/18 05:38 Heparin Sodium (Porcine) (Heparin 5000 units/ml) 5,000 units EVERY 12 HOURS SUBQ 11/03/18 21:00 11/27/18 20:59 11/09/18 20:40 Levetiracetam 100 ml @ 400 mls/hr Q12HR IVPB 11/03/18 21:00 11/30/18 20:59 11/09/18 20:38 Lorazepam (Ativan 2mg/ml 1ml) 1 mg Q4H PRN IV agitation 11/03/18 12:11 11/10/18 12:10 11/06/18 21:18 Meropenem 1 gm/ Sodium Chloride 55 ml @ 110 mls/hr Q8HR IVPB 11/03/18 14:00 11/13/18 13:59 11/10/18 05:37 Metoclopramide HCl (Reglan) 10 mg Q6H PRN IVP severe nausea 11/03/18 12:11 12/03/18 12:10 Midodrine (Pro-Amatine) 10 mg EVERY 8 HOURS ORAL 11/04/18 14:00 12/04/18 13:59 11/10/18 05:37 Mineral Oil (Fleet's Mineral Oil Enema) 133 ml EVERY OTHER DAY RECTAL 11/04/18 09:00 11/30/18 08:59 Minocycline HCl (Minocin) 100 mg Q12H ORAL 11/07/18 05:00 11/14/18 04:59 11/10/18 05:38 Morphine Sulfate (Morphine Sulfate) 2 mg Q4H PRN IVP severe Pain (Pain Scale 7-10) 11/03/18 12:12 11/10/18 12:11 Nitroglycerin (Ntg) 0.4 mg Q5M X 3 DOSES PRN SL Prn Chest Pain 11/03/18 12:12 12/03/18 12:11 Norepinephrine Bitartrate 4 mg/ Dextrose 250 ml @ 0 mls/hr Q24H IV 11/03/18 13:00 12/03/18 12:59 11/09/18 09:20 Pantoprazole (Protonix) 40 mg DAILY IV 11/04/18 09:00 11/28/18 08:59 11/09/18 09:19 Polyethylene Glycol (Miralax) 17 gm BEDTIME GT 11/03/18 21:00 12/03/18 20:59 11/08/18 21:31 Polyethylene Glycol (Miralax) 17 gm HSPRN PRN GT Constipation 11/03/18 12:12 12/03/18 12:11 Zinc Oxide (Zinc Oxide) 1 applic TIDPRN PRN TOPIC around g tube site 11/03/18 13:00 12/03/18 12:59 Laboratory Tests 11/10/18 03:45: White Blood Count 6.3, Red Blood Count 4.10L, Hemoglobin 12.1L, Hematocrit 37.6L , Mean Corpuscular Volume 92, Mean Corpuscular Hemoglobin 29.4, Mean Corpuscular Hemoglobin Concent 32.1, Red Cell Distribution Width 19.3H, Platelet Count 300, Mean Platelet Volume 5.9L, Neutrophils (%) (Auto) 52.2, Lymphocytes (%) (Auto) 32.3, Monocytes (%) (Auto) 12.3H, Eosinophils (%) (Auto) 1.9, Basophils (%) (Auto) 1.3, Sodium Level 142, Potassium Level 4.2, Chloride Level 109H, Carbon Dioxide Level 26, Anion Gap 7, Blood Urea Nitrogen 16, Creatinine 0.5L, Estimat Glomerular Filtration Rate > 60, Glucose Level 127H, Calcium Level 8.3L, Phosphorus Level 2.9, Magnesium Level 1.8, Total Bilirubin 0.8, Aspartate Amino Transf (AST/SGOT) 55H, Alanine Aminotransferase (ALT/SGPT) 62, Alkaline Phosphatase 451H, Total Protein 6.3L, Albumin 2.2L, Globulin 4.1, Albumin/Globulin Ratio 0.5L Height (Feet): 5 Height (Inches): 4.00 Weight (Pounds): 210 Objective exam stable SP tube in place, urine yellow/miriam Juniorshbailee,Ascencion Travis MD Nov 10, 2018 07:58
--- NOTE | 2018-11-10 08:00 | NUR ---
RESPIRATORY NOTES: Received Patient on Vent settings ACVC RR 14, VT 500, Fio2 30%, PEEP +5. Patient trached with a Shiley 6 cuffed, secured with trache ties. Patient is alert and awake. Bilateral breath sounds are rhonchi throughout. Suction minimal white secretions through trache Q2 and PRN. Alarms are on and audible. Vent plugged into red outlet. Will continue to monitor throughout the day.
[2018-11-10] MEDS: Colistin for inhalation INH SCH ×2 (08:42→22:07)
[2018-11-10] MEDS: Fleet's Mineral Oil Enema RECTAL SCH (09:00)
[2018-11-10] MEDS: Docusate 100mg tablet GT SCH ×2 (09:11→17:39)
[2018-11-10] MEDS: Pantoprazole Inj IV SCH (09:11)
[2018-11-10] MEDS: levETIRAcetam 500mg/NS100ml 100 ML IVPB SCH ×2 (09:11→20:42)
[2018-11-10] MEDS: Heparin 5000 units/ml inj SUBQ SCH ×2 (09:15→20:42)
--- NOTE | 2018-11-10 10:00 | NUR ---
NURSE NOTES: Levophed resumed at this time due to low BP of 79/36. Levophed resumed at 1mcg/hr at this time. Will continue to monitor blood pressure and titrate per protocol. Patient bed in low position with bed alarm on and call light in reach at this time. Patient repositioned and oral suctioning performed. HR 63, SpO2 100%, RR 19.
--- NOTE | 2018-11-10 10:25 | Pulmonolgy Critical Care Note ---
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 Respiratory: monitor respiratory rate, adjust FIO2 Cardiac: continue pressors, continue to monitor HR/BP Renal: F/U I&O Infectious Disease: check cultures Gastrointestinal: continue feedings/current rate Endocrine: monitor blood sugar Hematologic: monitor H/H Neurologic: PRN Ativan Affect: PRN ativan Prophylaxis: Protonix Disposition: keep in ICU Notes Reviewed: color maker formulator Discussed with: nurses, consultants, case plannermaterial manager - Objective Last 24 Hour Vital Signs Date Time Temp Pulse Resp B/P (MAP) Pulse Ox O2 Delivery O2 Flow Rate FiO2 11/10/18 09:30 64 8 82/35 (51) 100 11/10/18 09:00 64 24 114/46 (68) 100 11/10/18 08:43 100 11/10/18 08:42 61 22 28 11/10/18 08:41 Mechanical Ventilator 30 11/10/18 08:41 Mechanical Ventilator 28 11/10/18 08:00 28 11/10/18 08:00 98.7 64 22 99/41 (60) 100 11/10/18 08:00 63 11/10/18 08:00 Mechanical Ventilator 11/10/18 07:45 64 23 100/42 (61) 100 11/10/18 07:30 67 21 105/46 (65) 100 11/10/18 07:15 67 24 128/46 (73) 100 11/10/18 07:00 61 15 105/46 (65) 100 11/10/18 07:00 105/46 11/10/18 06:57 64 22 28 11/10/18 06:30 61 15 110/50 (70) 100 11/10/18 06:15 61 15 122/50 (74) 100 11/10/18 06:00 59 15 118/49 (72) 100 11/10/18 06:00 128/52 11/10/18 05:30 66 19 99/43 (61) 100 11/10/18 05:11 64 18 30 11/10/18 05:00 91/38 11/10/18 05:00 64 18 92/41 (58) 100 11/10/18 04:30 70 19 99/51 (67) 100 11/10/18 04:00 Mechanical Ventilator 11/10/18 04:00 66 19 100/40 (60) 100 11/10/18 04:00 28 11/10/18 04:00 100/45 11/10/18 04:00 74 11/10/18 03:30 64 21 94/45 (61) 100 11/10/18 03:00 104/49 11/10/18 03:00 69 21 104/49 (67) 100 11/10/18 02:30 67 22 103/43 (63) 100 11/10/18 02:30 66 21 30 11/10/18 02:00 117/53 11/10/18 02:00 61 17 111/52 (71) 100 11/10/18 01:30 66 19 95/40 (58) 100 11/10/18 01:30 81/39 11/10/18 01:00 68 18 90/37 (54) 100 11/10/18 00:30 65 14 30 11/10/18 00:30 65 17 83/37 (52) 100 11/10/18 00:00 68 17 90/38 (55) 100 11/10/18 00:00 76 11/10/18 00:00 28 11/10/18 00:00 Mechanical Ventilator 11/09/18 23:30 69 20 97/44 (61) 100 11/09/18 23:15 66 20 99/38 (58) 100 11/09/18 23:00 99/38 11/09/18 23:00 67 18 110/47 (68) 100 11/09/18 22:50 75 14 30 11/09/18 22:45 73 20 104/50 (68) 100 11/09/18 22:30 67 18 92/44 (60) 100 11/09/18 22:15 68 21 93/44 (60) 100 11/09/18 22:00 93/44 11/09/18 22:00 69 20 91/44 (60) 100 11/09/18 21:30 78 14 105/48 (67) 100 11/09/18 21:20 70 16 100 Mechanical Ventilator 28 11/09/18 21:15 61 13 103/47 (65) 100 11/09/18 21:10 68 14 100 Mechanical Ventilator 30 11/09/18 21:08 70 14 30 11/09/18 21:00 69 19 93/43 (60) 100 11/09/18 21:00 103/47 11/09/18 20:45 71 19 97/42 (60) 100 11/09/18 20:30 70 18 98/45 (62) 100 11/09/18 20:15 78 18 97/47 (64) 100 11/09/18 20:00 28 11/09/18 20:00 Mechanical Ventilator 11/09/18 20:00 97/47 11/09/18 20:00 98.9 77 20 102/48 (66) 100 11/09/18 20:00 80 11/09/18 19:00 104/47 11/09/18 19:00 78 19 101/47 (65) 100 11/09/18 18:45 96/44 11/09/18 18:40 71 20 30 11/09/18 18:30 101/47 11/09/18 18:15 106/49 11/09/18 18:00 75 16 111/53 (72) 100 11/09/18 18:00 111/53 11/09/18 17:30 75 16 102/46 (64) 100 11/09/18 17:00 105/48 11/09/18 17:00 74 15 105/48 (67) 100 11/09/18 16:45 80 19 106/46 (66) 100 11/09/18 16:40 74 20 30 11/09/18 16:30 106/46 11/09/18 16:30 78 17 109/46 (67) 100 11/09/18 16:15 81 16 111/49 (69) 100 11/09/18 16:00 72 11/09/18 16:00 109/50 11/09/18 16:00 98.6 75 15 116/52 (73) 100 11/09/18 16:00 Mechanical Ventilator 11/09/18 16:00 28 11/09/18 15:45 76 21 109/50 (69) 100 11/09/18 15:45 109/50 11/09/18 15:30 76 20 123/51 (75) 100 11/09/18 15:30 123/51 11/09/18 15:15 71 20 138/98 (111) 100 11/09/18 15:15 138/98 11/09/18 15:00 71 13 144/69 (94) 100 11/09/18 15:00 144/69 11/09/18 14:45 69 15 136/56 (82) 100 11/09/18 14:45 136/56 11/09/18 14:44 72 21 28 11/09/18 14:30 115/52 11/09/18 14:30 75 15 115/52 (73) 100 11/09/18 14:15 113/51 11/09/18 14:15 76 22 113/51 (71) 100 11/09/18 14:00 97/51 11/09/18 14:00 76 10 109/51 (70) 100 11/09/18 13:45 77 12 97/51 (66) 100 11/09/18 13:42 103/47 11/09/18 13:30 100/45 11/09/18 13:30 76 15 103/47 (65) 100 11/09/18 13:15 78 16 100/45 (63) 100 11/09/18 13:15 104/43 11/09/18 13:00 104/43 11/09/18 13:00 78 16 107/50 (69) 100 11/09/18 12:45 80 1 104/43 (63) 100 11/09/18 12:44 124/51 11/09/18 12:30 77 6 124/51 (75) 100 11/09/18 12:30 124/51 11/09/18 12:30 78 22 28 11/09/18 12:15 76 0 108/46 (66) 100 11/09/18 12:15 108/46 11/09/18 12:00 109/47 11/09/18 12:00 28 11/09/18 12:00 Mechanical Ventilator 11/09/18 12:00 98.4 78 0 109/47 (67) 100 11/09/18 12:00 80 11/09/18 11:45 75 0 113/48 (69) 100 11/09/18 11:45 113/48 11/09/18 11:30 79 0 106/53 (70) 100 11/09/18 11:30 106/53 11/09/18 11:15 109/49 11/09/18 11:15 82 18 109/49 (69) 100 11/09/18 11:07 82 22 28 11/09/18 11:07 84 22 100 Mechanical Ventilator 28 11/09/18 11:00 122/49 11/09/18 11:00 82 19 122/49 (73) 100 11/09/18 10:45 78 22 122/53 (76) 100 11/09/18 10:45 122/53 11/09/18 10:45 85 24 100 Mechanical Ventilator 28 11/09/18 10:30 113/51 11/09/18 10:30 81 21 113/51 (71) 100 Condition: critical HEENT: atraumatic, normocephalic Neck: full ROM Lungs: clear Heart: HR/BP stable Abdomen: soft Extremities: no C/C/E Critical Care - Subjective ROS Limited/Unobtainable: Yes Interval Events: still on 1 ug of Levophed Condition: critical FI02: 30 Vent Support Breath Rate: 8 Vent Support Mode: CPAP Vent Tidal Volume: 500 Sputum Amount: Small PEEP: 5.0 PIP: 14 Tube Feeding Amount: 65 I&O: Intake and Output 11/09/18 11/10/18 19:00 07:00 Intake Total 1834.160 ml 1025.625 ml Output Total 2130 ml 560 ml Balance -295.840 ml 465.625 ml Free Water 120 ml IV Total 934.160 ml 245.625 ml Tube Feeding 780 ml 780 ml Output Urine Total 2130 ml 560 ml Other 0 ml 0 ml # Bowel Movements 2 1 Labs: Laboratory Tests Test 11/10/18 03:45 11/10/18 09:25 White Blood Count 6.3 K/UL (4.8-10.8) Red Blood Count 4.10 M/UL (4.70-6.10) L Hemoglobin 12.1 G/DL (14.2-18.0) L Hematocrit 37.6 % (42.0-52.0) L Mean Corpuscular Volume 92 FL (80-99) Mean Corpuscular Hemoglobin 29.4 PG (27.0-31.0) Mean Corpuscular Hemoglobin Concent 32.1 G/DL (32.0-36.0) Red Cell Distribution Width 19.3 % (11.6-14.8) H Platelet Count 300 K/UL (150-450) Mean Platelet Volume 5.9 FL (6.5-10.1) L Neutrophils (%) (Auto) 52.2 % (45.0-75.0) Lymphocytes (%) (Auto) 32.3 % (20.0-45.0) Monocytes (%) (Auto) 12.3 % (1.0-10.0) H Eosinophils (%) (Auto) 1.9 % (0.0-3.0) Basophils (%) (Auto) 1.3 % (0.0-2.0) Sodium Level 142 MMOL/L (136-145) Potassium Level 4.2 MMOL/L (3.5-5.1) Chloride Level 109 MMOL/L (98-107) H Carbon Dioxide Level 26 MMOL/L (21-32) Anion Gap 7 mmol/L (5-15) Blood Urea Nitrogen 16 mg/dL (7-18) Creatinine 0.5 MG/DL (0.55-1.30) L Estimat Glomerular Filtration Rate > 60 mL/min (>60) Glucose Level 127 MG/DL (74-106) H Calcium Level 8.3 MG/DL (8.5-10.1) L Phosphorus Level 2.9 MG/DL (2.5-4.9) Magnesium Level 1.8 MG/DL (1.8-2.4) Total Bilirubin 0.8 MG/DL (0.2-1.0) Aspartate Amino Transf (AST/SGOT) 55 U/L (15-37) H Alanine Aminotransferase (ALT/SGPT) 62 U/L (12-78) Alkaline Phosphatase 451 U/L (46-116) H Total Protein 6.3 G/DL (6.4-8.2) L Albumin 2.2 G/DL (3.4-5.0) L Globulin 4.1 g/dL Albumin/Globulin Ratio 0.5 (1.0-2.7) L Arterial Blood pH 7.503 (7.350-7.450) Arterial Blood Partial Pressure CO2 30.4 mmHg (35.0-45.0) L Arterial Blood Partial Pressure O2 159.9 mmHg (75.0-100.0) H Arterial Blood HCO3 23.3 mmol/L (22.0-26.0) Arterial Blood Oxygen Saturation 98.7 % (95-100) Arterial Blood Base Excess 1.0 (-2-2) Kem Test Positive Mellissa Garcia MD Nov 10, 2018 10:25
--- NOTE | 2018-11-10 10:32 | GI Progress Note ---
Assessment/Plan Problems: (1) Malfunction of jejunostomy tube ICD Codes: K94.13 - Enterostomy malfunction SNOMED: 584889355, 006153219 (2) Hypokalemia ICD Codes: E87.6 - Hypokalemia SNOMED: 57874417 Status: unchanged Status Narrative Discussed with Dr. Lehman. Assessment/Plan CT AP reviewed Thickening of the underdistended urinary bladder is concerning for cystitis. Consider correlation with urinalysis. Moderate bilateral hydroureteronephrosis. Moderate stool in the rectosigmoid colon is suggestive of constipation. Morphologic features of cirrhosis. Cholelithiasis. s/p EGD with GT replacement GTFs per RD GT site care BID/prn Monitor H&H, PRN transfusions turn q2 hours PPI Electrolyte correction bowel regimen follow labs The patient was seen and examined at bedside and all new and available data was reviewed in the patients chart. I agree with the above findings, impression and plan. (Patient seen earlier today. Signature stamp does not reflect patient encounter time.). - Kvng Lehman MD Subjective Subjective limited Objective Last 24 Hour Vital Signs Date Time Temp Pulse Resp B/P (MAP) Pulse Ox O2 Delivery O2 Flow Rate FiO2 11/10/18 09:30 64 8 82/35 (51) 100 11/10/18 09:00 64 24 114/46 (68) 100 11/10/18 08:43 100 11/10/18 08:42 61 22 28 11/10/18 08:41 Mechanical Ventilator 30 11/10/18 08:41 Mechanical Ventilator 28 11/10/18 08:00 28 11/10/18 08:00 98.7 64 22 99/41 (60) 100 11/10/18 08:00 63 11/10/18 08:00 Mechanical Ventilator 11/10/18 07:45 64 23 100/42 (61) 100 11/10/18 07:30 67 21 105/46 (65) 100 11/10/18 07:15 67 24 128/46 (73) 100 11/10/18 07:00 61 15 105/46 (65) 100 11/10/18 07:00 105/46 11/10/18 06:57 64 22 28 11/10/18 06:30 61 15 110/50 (70) 100 11/10/18 06:15 61 15 122/50 (74) 100 11/10/18 06:00 59 15 118/49 (72) 100 11/10/18 06:00 128/52 11/10/18 05:30 66 19 99/43 (61) 100 11/10/18 05:11 64 18 30 11/10/18 05:00 91/38 11/10/18 05:00 64 18 92/41 (58) 100 11/10/18 04:30 70 19 99/51 (67) 100 11/10/18 04:00 Mechanical Ventilator 11/10/18 04:00 66 19 100/40 (60) 100 11/10/18 04:00 28 11/10/18 04:00 100/45 11/10/18 04:00 74 11/10/18 03:30 64 21 94/45 (61) 100 11/10/18 03:00 104/49 11/10/18 03:00 69 21 104/49 (67) 100 11/10/18 02:30 67 22 103/43 (63) 100 11/10/18 02:30 66 21 30 11/10/18 02:00 117/53 11/10/18 02:00 61 17 111/52 (71) 100 11/10/18 01:30 66 19 95/40 (58) 100 11/10/18 01:30 81/39 11/10/18 01:00 68 18 90/37 (54) 100 11/10/18 00:30 65 14 30 11/10/18 00:30 65 17 83/37 (52) 100 11/10/18 00:00 68 17 90/38 (55) 100 11/10/18 00:00 76 11/10/18 00:00 28 11/10/18 00:00 Mechanical Ventilator 11/09/18 23:30 69 20 97/44 (61) 100 11/09/18 23:15 66 20 99/38 (58) 100 11/09/18 23:00 99/38 11/09/18 23:00 67 18 110/47 (68) 100 11/09/18 22:50 75 14 30 11/09/18 22:45 73 20 104/50 (68) 100 11/09/18 22:30 67 18 92/44 (60) 100 11/09/18 22:15 68 21 93/44 (60) 100 11/09/18 22:00 93/44 11/09/18 22:00 69 20 91/44 (60) 100 11/09/18 21:30 78 14 105/48 (67) 100 11/09/18 21:20 70 16 100 Mechanical Ventilator 28 11/09/18 21:15 61 13 103/47 (65) 100 11/09/18 21:10 68 14 100 Mechanical Ventilator 30 11/09/18 21:08 70 14 30 11/09/18 21:00 69 19 93/43 (60) 100 11/09/18 21:00 103/47 11/09/18 20:45 71 19 97/42 (60) 100 11/09/18 20:30 70 18 98/45 (62) 100 11/09/18 20:15 78 18 97/47 (64) 100 11/09/18 20:00 28 11/09/18 20:00 Mechanical Ventilator 11/09/18 20:00 97/47 11/09/18 20:00 98.9 77 20 102/48 (66) 100 11/09/18 20:00 80 11/09/18 19:00 104/47 11/09/18 19:00 78 19 101/47 (65) 100 11/09/18 18:45 96/44 11/09/18 18:40 71 20 30 11/09/18 18:30 101/47 11/09/18 18:15 106/49 11/09/18 18:00 75 16 111/53 (72) 100 11/09/18 18:00 111/53 11/09/18 17:30 75 16 102/46 (64) 100 11/09/18 17:00 105/48 11/09/18 17:00 74 15 105/48 (67) 100 11/09/18 16:45 80 19 106/46 (66) 100 11/09/18 16:40 74 20 30 11/09/18 16:30 106/46 11/09/18 16:30 78 17 109/46 (67) 100 11/09/18 16:15 81 16 111/49 (69) 100 11/09/18 16:00 72 11/09/18 16:00 109/50 11/09/18 16:00 98.6 75 15 116/52 (73) 100 11/09/18 16:00 Mechanical Ventilator 11/09/18 16:00 28 11/09/18 15:45 76 21 109/50 (69) 100 11/09/18 15:45 109/50 11/09/18 15:30 76 20 123/51 (75) 100 11/09/18 15:30 123/51 11/09/18 15:15 71 20 138/98 (111) 100 11/09/18 15:15 138/98 11/09/18 15:00 71 13 144/69 (94) 100 11/09/18 15:00 144/69 11/09/18 14:45 69 15 136/56 (82) 100 11/09/18 14:45 136/56 11/09/18 14:44 72 21 28 11/09/18 14:30 115/52 11/09/18 14:30 75 15 115/52 (73) 100 11/09/18 14:15 113/51 11/09/18 14:15 76 22 113/51 (71) 100 11/09/18 14:00 97/51 11/09/18 14:00 76 10 109/51 (70) 100 11/09/18 13:45 77 12 97/51 (66) 100 11/09/18 13:42 103/47 11/09/18 13:30 100/45 11/09/18 13:30 76 15 103/47 (65) 100 11/09/18 13:15 78 16 100/45 (63) 100 11/09/18 13:15 104/43 11/09/18 13:00 104/43 11/09/18 13:00 78 16 107/50 (69) 100 11/09/18 12:45 80 1 104/43 (63) 100 11/09/18 12:44 124/51 11/09/18 12:30 77 6 124/51 (75) 100 11/09/18 12:30 124/51 11/09/18 12:30 78 22 28 11/09/18 12:15 76 0 108/46 (66) 100 11/09/18 12:15 108/46 11/09/18 12:00 109/47 11/09/18 12:00 28 11/09/18 12:00 Mechanical Ventilator 11/09/18 12:00 98.4 78 0 109/47 (67) 100 11/09/18 12:00 80 11/09/18 11:45 75 0 113/48 (69) 100 11/09/18 11:45 113/48 11/09/18 11:30 79 0 106/53 (70) 100 11/09/18 11:30 106/53 11/09/18 11:15 109/49 11/09/18 11:15 82 18 109/49 (69) 100 11/09/18 11:07 82 22 28 11/09/18 11:07 84 22 100 Mechanical Ventilator 28 11/09/18 11:00 122/49 11/09/18 11:00 82 19 122/49 (73) 100 11/09/18 10:45 78 22 122/53 (76) 100 11/09/18 10:45 122/53 11/09/18 10:45 85 24 100 Mechanical Ventilator 28 Intake and Output 11/09/18 11/10/18 19:00 07:00 Intake Total 1834.160 ml 1025.625 ml Output Total 2130 ml 560 ml Balance -295.840 ml 465.625 ml Free Water 120 ml IV Total 934.160 ml 245.625 ml Tube Feeding 780 ml 780 ml Output Urine Total 2130 ml 560 ml Other 0 ml 0 ml # Bowel Movements 2 1 Laboratory Tests Test 11/10/18 03:45 11/10/18 09:25 White Blood Count 6.3 K/UL (4.8-10.8) Red Blood Count 4.10 M/UL (4.70-6.10) L Hemoglobin 12.1 G/DL (14.2-18.0) L Hematocrit 37.6 % (42.0-52.0) L Mean Corpuscular Volume 92 FL (80-99) Mean Corpuscular Hemoglobin 29.4 PG (27.0-31.0) Mean Corpuscular Hemoglobin Concent 32.1 G/DL (32.0-36.0) Red Cell Distribution Width 19.3 % (11.6-14.8) H Platelet Count 300 K/UL (150-450) Mean Platelet Volume 5.9 FL (6.5-10.1) L Neutrophils (%) (Auto) 52.2 % (45.0-75.0) Lymphocytes (%) (Auto) 32.3 % (20.0-45.0) Monocytes (%) (Auto) 12.3 % (1.0-10.0) H Eosinophils (%) (Auto) 1.9 % (0.0-3.0) Basophils (%) (Auto) 1.3 % (0.0-2.0) Sodium Level 142 MMOL/L (136-145) Potassium Level 4.2 MMOL/L (3.5-5.1) Chloride Level 109 MMOL/L (98-107) H Carbon Dioxide Level 26 MMOL/L (21-32) Anion Gap 7 mmol/L (5-15) Blood Urea Nitrogen 16 mg/dL (7-18) Creatinine 0.5 MG/DL (0.55-1.30) L Estimat Glomerular Filtration Rate > 60 mL/min (>60) Glucose Level 127 MG/DL (74-106) H Calcium Level 8.3 MG/DL (8.5-10.1) L Phosphorus Level 2.9 MG/DL (2.5-4.9) Magnesium Level 1.8 MG/DL (1.8-2.4) Total Bilirubin 0.8 MG/DL (0.2-1.0) Aspartate Amino Transf (AST/SGOT) 55 U/L (15-37) H Alanine Aminotransferase (ALT/SGPT) 62 U/L (12-78) Alkaline Phosphatase 451 U/L (46-116) H Total Protein 6.3 G/DL (6.4-8.2) L Albumin 2.2 G/DL (3.4-5.0) L Globulin 4.1 g/dL Albumin/Globulin Ratio 0.5 (1.0-2.7) L Arterial Blood pH 7.503 (7.350-7.450) Arterial Blood Partial Pressure CO2 30.4 mmHg (35.0-45.0) L Arterial Blood Partial Pressure O2 159.9 mmHg (75.0-100.0) H Arterial Blood HCO3 23.3 mmol/L (22.0-26.0) Arterial Blood Oxygen Saturation 98.7 % (95-100) Arterial Blood Base Excess 1.0 (-2-2) Kem Test Positive Height (Feet): 5 Height (Inches): 4.00 Weight (Pounds): 210 General Appearance: alert Cardiovascular: normal rate Respiratory/Chest: other - mech vent Abdominal Exam: GT site - c/d/i Daisy Bernstein NP Nov 10, 2018 10:32
--- NOTE | 2018-11-10 10:35 | NUR ---
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
--- NOTE | 2018-11-10 10:38 | NUR ---
RESPIRATORY NOTES: Weaning stopped. Tolerated extremely well. Placed back onto previous ACVC settings. ABGs drawn.
--- NOTE | 2018-11-10 11:22 | Infectious Diseases Prog Note ---
Assessment/Plan Assessment/Plan Sepsis 2ry to GNR bacteremia (suspect from urinary source given hydronephrosis and chronic suprapubic catheter); now shock, on pressors- r/o PNA, bacteremia, acute cholecysititis or cholangitis 11/08 CXR: Interval resolution of the left lung base opacity. No new consolidation seen. -11/05 Bcx NTD -11/03 u/a (delayed collection) wbc 20-30, nit neg, leuk +3; ucx yeast -10/30 BCx 06/25 ESBL P. mirabilis (S Ertapenem, ZOsyn); 10/31 BCx <10k yeast ( colonzier) -spc x MDR ABC (I Gentamicin; S polymixin B, Colistin, minocycline); colonizer -11/03 CXR: Low lung volumes leading tobronchovascular crowding. Bibasilar subsegmental atelectasis. No new airspace consolidation. -CT abd/p: Thickening of the underdistended urinary bladder is concerning for cystitis. Consider correlation with urinalysis. Moderate bilateral hydroureteronephrosis. Moderate stool in the rectosigmoid colon is suggestive of constipation. Morphologic features of cirrhosis. Cholelithiasis. -CXR: Left hemidiaphragm is elevated but this appears stable. PICC line and tracheostomy noted. Cardiomegaly is stable. Bones are osteopenic. JT dislodgement and leakage w/ surrounding cellulitis -wound cx MDR ABC (I genta); colonizer Elevated LFTs- r/o hepatobiliary disease Fever; recurrent- probable pNA -11/06 CXR: Increasing left basilar atelectasis and hazy parenchymal infiltrate, overt 2 days No leukocytosis paraplegia neurogenic bladder COPD GERD seizure disorder s/p trach dysphagia s/p J tube placement 10/22/18 [facility] resident Plan: -Continue Meropenem #11/04 for ESBL bacteremia - Continue Minocycline #06/28-10 and INH colistin #06/28-10 for MDR ABC sputum cx given fevers and recent CXR changes -11/09 SP IV Vancomycin #4 -11/03 SP Cefepime #5 -11/02 SP IV Vancomycin # -10/29 SP Amikacin #1 and Flagyl #1 -f/u cx -Monitor CBC/CMP, temperatures -trach/JT care -GI, Sx f/u -aspiration precautions -f/u Bcx x2 Thank you for this consultation. Will continue to follow along with you. Subjective Allergies: Coded Allergies: SULFAMETHOXAZOLE (Verified Allergy, Unknown, 10/18/17) TRIMETHOPRIM (Verified Allergy, Unknown, 10/18/17) Subjective afebrile in no leukocytosis repeat Bcx NTD levo down to 1 Objective Vital Signs Last 24 Hour Vital Signs Date Time Temp Pulse Resp B/P (MAP) Pulse Ox O2 Delivery O2 Flow Rate FiO2 11/10/18 10:38 62 20 100 Mechanical Ventilator 28 11/10/18 10:37 63 21 30 11/10/18 09:30 64 8 82/35 (51) 100 11/10/18 09:00 64 24 114/46 (68) 100 11/10/18 08:43 100 11/10/18 08:42 61 22 28 11/10/18 08:41 Mechanical Ventilator 30 11/10/18 08:41 Mechanical Ventilator 28 11/10/18 08:00 28 11/10/18 08:00 98.7 64 22 99/41 (60) 100 11/10/18 08:00 63 11/10/18 08:00 Mechanical Ventilator 11/10/18 07:45 64 23 100/42 (61) 100 11/10/18 07:30 67 21 105/46 (65) 100 11/10/18 07:15 67 24 128/46 (73) 100 11/10/18 07:00 61 15 105/46 (65) 100 11/10/18 07:00 105/46 11/10/18 06:57 64 22 28 11/10/18 06:30 61 15 110/50 (70) 100 11/10/18 06:15 61 15 122/50 (74) 100 11/10/18 06:00 59 15 118/49 (72) 100 11/10/18 06:00 128/52 11/10/18 05:30 66 19 99/43 (61) 100 11/10/18 05:11 64 18 30 11/10/18 05:00 91/38 11/10/18 05:00 64 18 92/41 (58) 100 11/10/18 04:30 70 19 99/51 (67) 100 11/10/18 04:00 Mechanical Ventilator 8/20/19 04:00 66 19 100/40 (60) 100 11/10/18 04:00 28 11/10/18 04:00 100/45 11/10/18 04:00 74 11/10/18 03:30 64 21 94/45 (61) 100 11/10/18 03:00 104/49 11/10/18 03:00 69 21 104/49 (67) 100 11/10/18 02:30 67 22 103/43 (63) 100 11/10/18 02:30 66 21 30 11/10/18 02:00 117/53 11/10/18 02:00 61 17 111/52 (71) 100 11/10/18 01:30 66 19 95/40 (58) 100 11/10/18 01:30 81/39 11/10/18 01:00 68 18 90/37 (54) 100 11/10/18 00:30 65 14 30 11/10/18 00:30 65 17 83/37 (52) 100 11/10/18 00:00 68 17 90/38 (55) 100 11/10/18 00:00 76 11/10/18 00:00 28 11/10/18 00:00 Mechanical Ventilator 11/09/18 23:30 69 20 97/44 (61) 100 11/09/18 23:15 66 20 99/38 (58) 100 11/09/18 23:00 99/38 11/09/18 23:00 67 18 110/47 (68) 100 11/09/18 22:50 75 14 30 11/09/18 22:45 73 20 104/50 (68) 100 11/09/18 22:30 67 18 92/44 (60) 100 11/09/18 22:15 68 21 93/44 (60) 100 11/09/18 22:00 93/44 11/09/18 22:00 69 20 91/44 (60) 100 11/09/18 21:30 78 14 105/48 (67) 100 11/09/18 21:20 70 16 100 Mechanical Ventilator 28 11/09/18 21:15 61 13 103/47 (65) 100 11/09/18 21:10 68 14 100 Mechanical Ventilator 30 11/09/18 21:08 70 14 30 11/09/18 21:00 69 19 93/43 (60) 100 11/09/18 21:00 103/47 11/09/18 20:45 71 19 97/42 (60) 100 11/09/18 20:30 70 18 98/45 (62) 100 11/09/18 20:15 78 18 97/47 (64) 100 11/09/18 20:00 28 11/09/18 20:00 Mechanical Ventilator 11/09/18 20:00 97/47 11/09/18 20:00 98.9 77 20 102/48 (66) 100 11/09/18 20:00 80 11/09/18 19:00 104/47 11/09/18 19:00 78 19 101/47 (65) 100 11/09/18 18:45 96/44 11/09/18 18:40 71 20 30 11/09/18 18:30 101/47 11/09/18 18:15 106/49 11/09/18 18:00 75 16 111/53 (72) 100 11/09/18 18:00 111/53 11/09/18 17:30 75 16 102/46 (64) 100 11/09/18 17:00 105/48 11/09/18 17:00 74 15 105/48 (67) 100 11/09/18 16:45 80 19 106/46 (66) 100 11/09/18 16:40 74 20 30 11/09/18 16:30 106/46 11/09/18 16:30 78 17 109/46 (67) 100 11/09/18 16:15 81 16 111/49 (69) 100 11/09/18 16:00 72 11/09/18 16:00 109/50 11/09/18 16:00 98.6 75 15 116/52 (73) 100 11/09/18 16:00 Mechanical Ventilator 11/09/18 16:00 28 11/09/18 15:45 76 21 109/50 (69) 100 11/09/18 15:45 109/50 11/09/18 15:30 76 20 123/51 (75) 100 11/09/18 15:30 123/51 11/09/18 15:15 71 20 138/98 (111) 100 11/09/18 15:15 138/98 11/09/18 15:00 71 13 144/69 (94) 100 11/09/18 15:00 144/69 11/09/18 14:45 69 15 136/56 (82) 100 11/09/18 14:45 136/56 11/09/18 14:44 72 21 28 11/09/18 14:30 115/52 11/09/18 14:30 75 15 115/52 (73) 100 11/09/18 14:15 113/51 11/09/18 14:15 76 22 113/51 (71) 100 11/09/18 14:00 97/51 11/09/18 14:00 76 10 109/51 (70) 100 11/09/18 13:45 77 12 97/51 (66) 100 11/09/18 13:42 103/47 11/09/18 13:30 100/45 11/09/18 13:30 76 15 103/47 (65) 100 11/09/18 13:15 78 16 100/45 (63) 100 11/09/18 13:15 104/43 11/09/18 13:00 104/43 11/09/18 13:00 78 16 107/50 (69) 100 11/09/18 12:45 80 1 104/43 (63) 100 11/09/18 12:44 124/51 11/09/18 12:30 77 6 124/51 (75) 100 11/09/18 12:30 124/51 11/09/18 12:30 78 22 28 11/09/18 12:15 76 0 108/46 (66) 100 11/09/18 12:15 108/46 11/09/18 12:00 109/47 11/09/18 12:00 28 11/09/18 12:00 Mechanical Ventilator 11/09/18 12:00 98.4 78 0 109/47 (67) 100 11/09/18 12:00 80 11/09/18 11:45 75 0 113/48 (69) 100 11/09/18 11:45 113/48 11/09/18 11:30 79 0 106/53 (70) 100 11/09/18 11:30 106/53 Height (Feet): 5 Height (Inches): 4.00 Weight (Pounds): 210 Objective General Appearance: WD/WN, no apparent distress, alert Cardiovascular: normal rate Respiratory/Chest: normal breath sounds, no respiratory distress Abdominal Exam: normal bowel sounds, non tender, soft, GT site - c/d/i Extremities: non-tender Laboratory Tests Test 11/10/18 03:45 11/10/18 09:25 White Blood Count 6.3 K/UL (4.8-10.8) Red Blood Count 4.10 M/UL (4.70-6.10) L Hemoglobin 12.1 G/DL (14.2-18.0) L Hematocrit 37.6 % (42.0-52.0) L Mean Corpuscular Volume 92 FL (80-99) Mean Corpuscular Hemoglobin 29.4 PG (27.0-31.0) Mean Corpuscular Hemoglobin Concent 32.1 G/DL (32.0-36.0) Red Cell Distribution Width 19.3 % (11.6-14.8) H Platelet Count 300 K/UL (150-450) Mean Platelet Volume 5.9 FL (6.5-10.1) L Neutrophils (%) (Auto) 52.2 % (45.0-75.0) Lymphocytes (%) (Auto) 32.3 % (20.0-45.0) Monocytes (%) (Auto) 12.3 % (1.0-10.0) H Eosinophils (%) (Auto) 1.9 % (0.0-3.0) Basophils (%) (Auto) 1.3 % (0.0-2.0) Sodium Level 142 MMOL/L (136-145) Potassium Level 4.2 MMOL/L (3.5-5.1) Chloride Level 109 MMOL/L (98-107) H Carbon Dioxide Level 26 MMOL/L (21-32) Anion Gap 7 mmol/L (5-15) Blood Urea Nitrogen 16 mg/dL (7-18) Creatinine 0.5 MG/DL (0.55-1.30) L Estimat Glomerular Filtration Rate > 60 mL/min (>60) Glucose Level 127 MG/DL (74-106) H Calcium Level 8.3 MG/DL (8.5-10.1) L Phosphorus Level 2.9 MG/DL (2.5-4.9) Magnesium Level 1.8 MG/DL (1.8-2.4) Total Bilirubin 0.8 MG/DL (0.2-1.0) Aspartate Amino Transf (AST/SGOT) 55 U/L (15-37) H Alanine Aminotransferase (ALT/SGPT) 62 U/L (12-78) Alkaline Phosphatase 451 U/L (46-116) H Total Protein 6.3 G/DL (6.4-8.2) L Albumin 2.2 G/DL (3.4-5.0) L Globulin 4.1 g/dL Albumin/Globulin Ratio 0.5 (1.0-2.7) L Arterial Blood pH 7.503 (7.350-7.450) Arterial Blood Partial Pressure CO2 30.4 mmHg (35.0-45.0) L Arterial Blood Partial Pressure O2 159.9 mmHg (75.0-100.0) H Arterial Blood HCO3 23.3 mmol/L (22.0-26.0) Arterial Blood Oxygen Saturation 98.7 % (95-100) Arterial Blood Base Excess 1.0 (-2-2) Kem Test Positive Current Medications Medications (Trade) Dose Ordered Sig/Vicenta Route PRN Reason Start Time Stop Time Status Last Admin Dose Admin Acetaminophen (Tylenol) 650 mg Q4H PRN ORAL fever 11/03/18 12:30 11/27/18 12:29 11/05/18 19:18 Acetaminophen (Tylenol) 650 mg Q4H PRN RECTAL Mild Pain (Pain Scale 1-3) 11/03/18 14:45 11/28/18 10:44 Chlorhexidine Gluconate (Caitlyn-Hex 2%) 1 applic DAILY@1999 TOPIC 11/03/18 20:00 11/28/18 19:59 11/09/18 20:38 Colistimethate Sodium (Colistin *inhalation use only*) 150 mg Q12HR@10,22 INH 11/06/18 22:00 11/13/18 21:59 11/09/18 21:09 Dextrose (Dextrose 50%) 25 ml Q30M PRN IV Hypoglycemia 11/03/18 12:30 11/27/18 14:29 Dextrose (Dextrose 50%) 50 ml Q30M PRN IV Hypoglycemia 11/03/18 12:30 11/27/18 14:29 Docusate Sodium (Colace) 100 mg BID GT 11/03/18 18:00 12/03/18 17:59 11/10/18 09:11 Gabapentin (Neurontin) 600 mg Q6HR GT 11/03/18 12:00 11/27/18 17:59 11/10/18 05:38 Heparin Sodium (Porcine) (Heparin 5000 units/ml) 5,000 units EVERY 12 HOURS SUBQ 11/03/18 21:00 11/27/18 20:59 11/10/18 09:15 Levetiracetam 100 ml @ 400 mls/hr Q12HR IVPB 11/03/18 21:00 11/30/18 20:59 11/10/18 09:11 Lorazepam (Ativan 2mg/ml 1ml) 1 mg Q4H PRN IV agitation 11/03/18 12:11 11/10/18 12:10 11/06/18 21:18 Meropenem 1 gm/ Sodium Chloride 55 ml @ 110 mls/hr Q8HR IVPB 11/03/18 14:00 11/13/18 13:59 11/10/18 05:37 Metoclopramide HCl (Reglan) 10 mg Q6H PRN IVP severe nausea 11/03/18 12:11 12/03/18 12:10 Midodrine (Pro-Amatine) 10 mg EVERY 8 HOURS ORAL 11/04/18 14:00 12/04/18 13:59 11/10/18 05:37 Mineral Oil (Fleet's Mineral Oil Enema) 133 ml EVERY OTHER DAY RECTAL 11/04/18 09:00 11/30/18 08:59 Minocycline HCl (Minocin) 100 mg Q12H ORAL 11/07/18 05:00 11/14/18 04:59 11/10/18 05:38 Morphine Sulfate (Morphine Sulfate) 2 mg Q4H PRN IVP severe Pain (Pain Scale 7-10) 11/03/18 12:12 11/10/18 12:11 Nitroglycerin (Ntg) 0.4 mg Q5M X 3 DOSES PRN SL Prn Chest Pain 11/03/18 12:12 12/03/18 12:11 Norepinephrine Bitartrate 4 mg/ Dextrose 250 ml @ 0 mls/hr Q24H IV 11/03/18 13:00 12/03/18 12:59 11/09/18 09:20 Pantoprazole (Protonix) 40 mg DAILY IV 11/04/18 09:00 11/28/18 08:59 11/10/18 09:11 Polyethylene Glycol (Miralax) 17 gm BEDTIME GT 11/03/18 21:00 12/03/18 20:59 11/08/18 21:31 Polyethylene Glycol (Miralax) 17 gm HSPRN PRN GT Constipation 11/03/18 12:12 12/03/18 12:11 Zinc Oxide (Zinc Oxide) 1 applic TIDPRN PRN TOPIC around g tube site 11/03/18 13:00 12/03/18 12:59 Kimi Ramos M.D. Nov 10, 2018 11:22
--- NOTE | 2018-11-10 12:00 | NUR ---
NURSE NOTES: Patient resting in bed at this time with no sign of acute distress. Patient remains alert and oriented to person and place but confused to time and purpose. Patient remains on CPAP with pressure support of 8, PEEP 5, and FiO2 28%. Patient tolerating weaning trial with no sign of acute distress. Blood pressure 116/51, HR 71 with sinus rhythm on the waiter/waitress cocktail lounge, SpO2 100%, RR 17, and temp 98.7. Patient denies acute distress. Patient tube feeding remains held at this time for weaning trial. Will resume feeding after weaning trial complete. Patient has gastrosomy tube that has minimal brown/red discharge at the G tube site and a small skin tear also at the G tube site. Site covered with moisture barrier cream, triad, and 4x4 dressing for protection. Right upper arm PICC line remains patent, asymptomatic, and dressing changed on 11/05. Patient running levophed drip at 1mcg/hr at this time with blood pressure of 116/51. Suprapubic catheter remains asymptomatic with dressing intact. No redness or discharge noted. Urine clear and dark yellow at this time with no sediment. Patient bilateral upper and lower limbs contracted. Edema non-pitting noted in the upper extremity. Patient has healed sacral and left hop wounds that are covered with optifoam for protection. Patient elbows and heels elevated on pillows and patient on low air loss mattress at this time. Patient bed in low position with bed alarm on and call light in reach at this time. Will continue to monitor respiratory effort on weaning trial and blood pressure off of Levophed drip. Patient cleaned, repositioned, and oral care performed at this time.
--- NOTE | 2018-11-10 12:30 | Nephrology Progress Note ---
Assessment/Plan Problem List: (1) Hypokalemia (2) Malfunction of gastrostomy tube (3) Malfunction of jejunostomy tube (4) Seizures Assessment Sever hypokalemia Low mag other conditions; 1. JG tube malfunction and leaks. 2. Respiratory failure. 3. Seizure disorder. 4. Chronic obstructive pulmonary disease. 5. Gastroesophageal reflux disease. 6. Neurogenic bladder. 7. Hypothyroidism. 8. Quadriplegia. 9. Tracheostomy in situ. 10.Thrombocytopenia. Plan BP support- remains on low dose pressor Vigorous K supplement IV Phos and Mag supplement as needed waiting for GT functionality ! ( Per GI) Monitor lytes and renal parameters per orders Subjective ROS Limited/Unobtainable: Yes Objective Objective Last 24 Hour Vital Signs Date Time Temp Pulse Resp B/P (MAP) Pulse Ox O2 Delivery O2 Flow Rate FiO2 11/10/18 11:45 98.6 67 7 103/44 (63) 100 11/10/18 11:30 63 18 107/47 (67) 100 11/10/18 11:15 59 17 96/40 (58) 100 11/10/18 11:00 61 18 114/52 (72) 100 11/10/18 10:45 61 13 113/52 (72) 100 11/10/18 10:38 62 20 100 Mechanical Ventilator 28 11/10/18 10:37 63 21 30 11/10/18 10:30 64 17 112/50 (70) 100 11/10/18 10:21 67 11 96/48 (64) 100 11/10/18 10:15 64 19 79/36 (50) 100 11/10/18 10:00 64 18 80/36 (51) 100 11/10/18 09:45 64 16 80/35 (50) 100 11/10/18 09:30 64 8 82/35 (51) 100 11/10/18 09:00 64 24 114/46 (68) 100 11/10/18 08:43 100 11/10/18 08:42 61 22 28 11/10/18 08:41 Mechanical Ventilator 30 11/10/18 08:41 Mechanical Ventilator 28 11/10/18 08:00 28 11/10/18 08:00 98.7 64 22 99/41 (60) 100 11/10/18 08:00 63 11/10/18 08:00 Mechanical Ventilator 11/10/18 07:45 64 23 100/42 (61) 100 11/10/18 07:30 67 21 105/46 (65) 100 11/10/18 07:15 67 24 128/46 (73) 100 11/10/18 07:00 61 15 105/46 (65) 100 11/10/18 07:00 105/46 11/10/18 06:57 64 22 28 11/10/18 06:30 61 15 110/50 (70) 100 11/10/18 06:15 61 15 122/50 (74) 100 11/10/18 06:00 59 15 118/49 (72) 100 11/10/18 06:00 128/52 11/10/18 05:30 66 19 99/43 (61) 100 11/10/18 05:11 64 18 30 11/10/18 05:00 91/38 11/10/18 05:00 64 18 92/41 (58) 100 11/10/18 04:30 70 19 99/51 (67) 100 11/10/18 04:00 Mechanical Ventilator 11/10/18 04:00 66 19 100/40 (60) 100 11/10/18 04:00 28 11/10/18 04:00 100/45 11/10/18 04:00 74 11/10/18 03:30 64 21 94/45 (61) 100 11/10/18 03:00 104/49 11/10/18 03:00 69 21 104/49 (67) 100 11/10/18 02:30 67 22 103/43 (63) 100 11/10/18 02:30 66 21 30 11/10/18 02:00 117/53 11/10/18 02:00 61 17 111/52 (71) 100 11/10/18 01:30 66 19 95/40 (58) 100 11/10/18 01:30 81/39 11/10/18 01:00 68 18 90/37 (54) 100 11/10/18 00:30 65 14 30 11/10/18 00:30 65 17 83/37 (52) 100 11/10/18 00:00 68 17 90/38 (55) 100 11/10/18 00:00 76 11/10/18 00:00 28 11/10/18 00:00 Mechanical Ventilator 11/09/18 23:30 69 20 97/44 (61) 100 11/09/18 23:15 66 20 99/38 (58) 100 11/09/18 23:00 99/38 11/09/18 23:00 67 18 110/47 (68) 100 11/09/18 22:50 75 14 30 11/09/18 22:45 73 20 104/50 (68) 100 11/09/18 22:30 67 18 92/44 (60) 100 11/09/18 22:15 68 21 93/44 (60) 100 11/09/18 22:00 93/44 11/09/18 22:00 69 20 91/44 (60) 100 11/09/18 21:30 78 14 105/48 (67) 100 11/09/18 21:20 70 16 100 Mechanical Ventilator 28 11/09/18 21:15 61 13 103/47 (65) 100 11/09/18 21:10 68 14 100 Mechanical Ventilator 30 11/09/18 21:08 70 14 30 11/09/18 21:00 69 19 93/43 (60) 100 11/09/18 21:00 103/47 11/09/18 20:45 71 19 97/42 (60) 100 11/09/18 20:30 70 18 98/45 (62) 100 11/09/18 20:15 78 18 97/47 (64) 100 11/09/18 20:00 28 11/09/18 20:00 Mechanical Ventilator 11/09/18 20:00 97/47 11/09/18 20:00 98.9 77 20 102/48 (66) 100 11/09/18 20:00 80 11/09/18 19:00 104/47 11/09/18 19:00 78 19 101/47 (65) 100 11/09/18 18:45 96/44 11/09/18 18:40 71 20 30 11/09/18 18:30 101/47 11/09/18 18:15 106/49 11/09/18 18:00 75 16 111/53 (72) 100 11/09/18 18:00 111/53 11/09/18 17:30 75 16 102/46 (64) 100 11/09/18 17:00 105/48 11/09/18 17:00 74 15 105/48 (67) 100 11/09/18 16:45 80 19 106/46 (66) 100 11/09/18 16:40 74 20 30 11/09/18 16:30 106/46 11/09/18 16:30 78 17 109/46 (67) 100 11/09/18 16:15 81 16 111/49 (69) 100 11/09/18 16:00 72 11/09/18 16:00 109/50 11/09/18 16:00 98.6 75 15 116/52 (73) 100 11/09/18 16:00 Mechanical Ventilator 11/09/18 16:00 28 11/09/18 15:45 76 21 109/50 (69) 100 11/09/18 15:45 109/50 11/09/18 15:30 76 20 123/51 (75) 100 11/09/18 15:30 123/51 11/09/18 15:15 71 20 138/98 (111) 100 11/09/18 15:15 138/98 11/09/18 15:00 71 13 144/69 (94) 100 11/09/18 15:00 144/69 11/09/18 14:45 69 15 136/56 (82) 100 11/09/18 14:45 136/56 11/09/18 14:44 72 21 28 11/09/18 14:30 115/52 11/09/18 14:30 75 15 115/52 (73) 100 11/09/18 14:15 113/51 11/09/18 14:15 76 22 113/51 (71) 100 11/09/18 14:00 97/51 11/09/18 14:00 76 10 109/51 (70) 100 11/09/18 13:45 77 12 97/51 (66) 100 11/09/18 13:42 103/47 11/09/18 13:30 100/45 11/09/18 13:30 76 15 103/47 (65) 100 11/09/18 13:15 78 16 100/45 (63) 100 11/09/18 13:15 104/43 11/09/18 13:00 104/43 11/09/18 13:00 78 16 107/50 (69) 100 11/09/18 12:45 80 1 104/43 (63) 100 11/09/18 12:44 124/51 11/09/18 12:30 77 6 124/51 (75) 100 11/09/18 12:30 124/51 11/09/18 12:30 78 22 28 Intake and Output 11/09/18 11/10/18 19:00 07:00 Intake Total 1834.160 ml 1025.625 ml Output Total 2130 ml 560 ml Balance -295.840 ml 465.625 ml Free Water 120 ml IV Total 934.160 ml 245.625 ml Tube Feeding 780 ml 780 ml Output Urine Total 2130 ml 560 ml Other 0 ml 0 ml # Bowel Movements 2 1 Laboratory Tests 11/10/18 03:45: White Blood Count 6.3, Red Blood Count 4.10L, Hemoglobin 12.1L, Hematocrit 37.6L , Mean Corpuscular Volume 92, Mean Corpuscular Hemoglobin 29.4, Mean Corpuscular Hemoglobin Concent 32.1, Red Cell Distribution Width 19.3H, Platelet Count 300, Mean Platelet Volume 5.9L, Neutrophils (%) (Auto) 52.2, Lymphocytes (%) (Auto) 32.3, Monocytes (%) (Auto) 12.3H, Eosinophils (%) (Auto) 1.9, Basophils (%) (Auto) 1.3, Sodium Level 142, Potassium Level 4.2, Chloride Level 109H, Carbon Dioxide Level 26, Anion Gap 7, Blood Urea Nitrogen 16, Creatinine 0.5L, Estimat Glomerular Filtration Rate > 60, Glucose Level 127H, Calcium Level 8.3L, Phosphorus Level 2.9, Magnesium Level 1.8, Total Bilirubin 0.8, Aspartate Amino Transf (AST/SGOT) 55H, Alanine Aminotransferase (ALT/SGPT) 62, Alkaline Phosphatase 451H, Total Protein 6.3L, Albumin 2.2L, Globulin 4.1, Albumin/Globulin Ratio 0.5L 11/10/18 09:25: Arterial Blood pH 7.503H, Arterial Blood Partial Pressure CO2 30.4L, Arterial Blood Partial Pressure O2 159.9H, Arterial Blood HCO3 23.3, Arterial Blood Oxygen Saturation 98.7, Arterial Blood Base Excess 1.0, Kem Test Positive Height (Feet): 5 Height (Inches): 4.00 Weight (Pounds): 210 General Appearance: no apparent distress EENT: other - trach to O2 Respiratory/Chest: decreased breath sounds Abdomen: distended Sudhakar Silverman MD Nov 10, 2018 12:29
--- NOTE | 2018-11-10 14:00 | NUR ---
NURSE NOTES: Patient vital signs stable with no sign of acute distress. Blood pressure 133/54 on Levophed drip running at 1mcg/hr at this time. HR 62, SpO2 100%, RR 19. Patient denies pain or acute distress. Patient repositioned and oral care performed. Will continue to monitor blood pressure and titrate per protocol. bed in low position with bed alarm on and call light in reach at this time. Patient back on ventilator setting of AC 14, tidal volume 500, FiO2 28%, and PEEP 5. Patient tolerating setting with no distress.
--- NOTE | 2018-11-10 15:47 | Surgery Progress Note ---
Surgery Progress Note Subjective Symptoms: other Objective Last 24 Hour Vital Signs Date Time Temp Pulse Resp B/P (MAP) Pulse Ox O2 Delivery O2 Flow Rate FiO2 11/10/18 15:24 63 18 30 11/10/18 14:00 60 20 119/46 (70) 100 11/10/18 14:00 133/54 11/10/18 13:42 109/45 11/10/18 13:16 66 15 30 11/10/18 13:00 110/47 11/10/18 13:00 67 12 118/46 (70) 100 11/10/18 12:00 116/51 11/10/18 12:00 Mechanical Ventilator 11/10/18 12:00 28 11/10/18 11:45 98.6 67 7 103/44 (63) 100 11/10/18 11:30 63 18 107/47 (67) 100 11/10/18 11:30 103/44 11/10/18 11:15 59 17 96/40 (58) 100 11/10/18 11:00 96/40 11/10/18 11:00 61 18 114/52 (72) 100 11/10/18 10:45 61 13 113/52 (72) 100 11/10/18 10:45 114/52 11/10/18 10:38 62 20 100 Mechanical Ventilator 28 11/10/18 10:37 63 21 30 11/10/18 10:30 113/52 11/10/18 10:30 64 17 112/50 (70) 100 11/10/18 10:21 67 11 96/48 (64) 100 11/10/18 10:15 96/48 11/10/18 10:15 64 19 79/36 (50) 100 11/10/18 10:00 64 18 80/36 (51) 100 11/10/18 10:00 79/36 11/10/18 09:45 64 16 80/35 (50) 100 11/10/18 09:30 64 8 82/35 (51) 100 11/10/18 09:00 64 24 114/46 (68) 100 11/10/18 08:43 100 11/10/18 08:42 61 22 28 11/10/18 08:41 Mechanical Ventilator 30 11/10/18 08:41 Mechanical Ventilator 28 11/10/18 08:00 28 11/10/18 08:00 98.7 64 22 99/41 (60) 100 11/10/18 08:00 63 11/10/18 08:00 Mechanical Ventilator 11/10/18 07:45 64 23 100/42 (61) 100 11/10/18 07:30 67 21 105/46 (65) 100 11/10/18 07:15 67 24 128/46 (73) 100 11/10/18 07:15 128/52 11/10/18 07:00 61 15 105/46 (65) 100 11/10/18 07:00 105/46 11/10/18 06:57 64 22 28 11/10/18 06:30 61 15 110/50 (70) 100 11/10/18 06:15 61 15 122/50 (74) 100 11/10/18 06:00 59 15 118/49 (72) 100 11/10/18 06:00 128/52 11/10/18 05:30 66 19 99/43 (61) 100 11/10/18 05:11 64 18 30 11/10/18 05:00 91/38 11/10/18 05:00 64 18 92/41 (58) 100 11/10/18 04:30 70 19 99/51 (67) 100 11/10/18 04:00 Mechanical Ventilator 11/10/18 04:00 66 19 100/40 (60) 100 11/10/18 04:00 28 11/10/18 04:00 100/45 11/10/18 04:00 74 11/10/18 03:30 64 21 94/45 (61) 100 11/10/18 03:00 104/49 11/10/18 03:00 69 21 104/49 (67) 100 11/10/18 02:30 67 22 103/43 (63) 100 11/10/18 02:30 66 21 30 11/10/18 02:00 117/53 11/10/18 02:00 61 17 111/52 (71) 100 11/10/18 01:30 66 19 95/40 (58) 100 11/10/18 01:30 81/39 11/10/18 01:00 68 18 90/37 (54) 100 11/10/18 00:30 65 14 30 11/10/18 00:30 65 17 83/37 (52) 100 11/10/18 00:00 68 17 90/38 (55) 100 11/10/18 00:00 76 11/10/18 00:00 28 11/10/18 00:00 Mechanical Ventilator 11/09/18 23:30 69 20 97/44 (61) 100 11/09/18 23:15 66 20 99/38 (58) 100 11/09/18 23:00 99/38 11/09/18 23:00 67 18 110/47 (68) 100 11/09/18 22:50 75 14 30 11/09/18 22:45 73 20 104/50 (68) 100 11/09/18 22:30 67 18 92/44 (60) 100 11/09/18 22:15 68 21 93/44 (60) 100 11/09/18 22:00 93/44 11/09/18 22:00 69 20 91/44 (60) 100 11/09/18 21:30 78 14 105/48 (67) 100 11/09/18 21:20 70 16 100 Mechanical Ventilator 28 11/09/18 21:15 61 13 103/47 (65) 100 11/09/18 21:10 68 14 100 Mechanical Ventilator 30 11/09/18 21:08 70 14 30 11/09/18 21:00 69 19 93/43 (60) 100 11/09/18 21:00 103/47 11/09/18 20:45 71 19 97/42 (60) 100 11/09/18 20:30 70 18 98/45 (62) 100 11/09/18 20:15 78 18 97/47 (64) 100 11/09/18 20:00 28 11/09/18 20:00 Mechanical Ventilator 11/09/18 20:00 97/47 11/09/18 20:00 98.9 77 20 102/48 (66) 100 11/09/18 20:00 80 11/09/18 19:00 104/47 11/09/18 19:00 78 19 101/47 (65) 100 11/09/18 18:45 96/44 11/09/18 18:40 71 20 30 11/09/18 18:30 101/47 11/09/18 18:15 106/49 11/09/18 18:00 75 16 111/53 (72) 100 11/09/18 18:00 111/53 11/09/18 17:30 75 16 102/46 (64) 100 11/09/18 17:00 105/48 11/09/18 17:00 74 15 105/48 (67) 100 11/09/18 16:45 80 19 106/46 (66) 100 11/09/18 16:40 74 20 30 11/09/18 16:30 106/46 11/09/18 16:30 78 17 109/46 (67) 100 11/09/18 16:15 81 16 111/49 (69) 100 11/09/18 16:00 72 11/09/18 16:00 109/50 11/09/18 16:00 98.6 75 15 116/52 (73) 100 11/09/18 16:00 Mechanical Ventilator 11/09/18 16:00 28 I&O Intake and Output 11/09/18 11/10/18 19:00 07:00 Intake Total 1834.160 ml 1025.625 ml Output Total 2130 ml 560 ml Balance -295.840 ml 465.625 ml Free Water 120 ml IV Total 934.160 ml 245.625 ml Tube Feeding 780 ml 780 ml Output Urine Total 2130 ml 560 ml Other 0 ml 0 ml # Bowel Movements 2 1 Dressing: dry Wound: clean Cardiovascular: RSR Respiratory: clear Abdomen: soft, non-tender, present bowel sounds, other Extremities: other Laboratory Tests Test 11/10/18 03:45 11/10/18 09:25 White Blood Count 6.3 K/UL (4.8-10.8) Red Blood Count 4.10 M/UL (4.70-6.10) L Hemoglobin 12.1 G/DL (14.2-18.0) L Hematocrit 37.6 % (42.0-52.0) L Mean Corpuscular Volume 92 FL (80-99) Mean Corpuscular Hemoglobin 29.4 PG (27.0-31.0) Mean Corpuscular Hemoglobin Concent 32.1 G/DL (32.0-36.0) Red Cell Distribution Width 19.3 % (11.6-14.8) H Platelet Count 300 K/UL (150-450) Mean Platelet Volume 5.9 FL (6.5-10.1) L Neutrophils (%) (Auto) 52.2 % (45.0-75.0) Lymphocytes (%) (Auto) 32.3 % (20.0-45.0) Monocytes (%) (Auto) 12.3 % (1.0-10.0) H Eosinophils (%) (Auto) 1.9 % (0.0-3.0) Basophils (%) (Auto) 1.3 % (0.0-2.0) Sodium Level 142 MMOL/L (136-145) Potassium Level 4.2 MMOL/L (3.5-5.1) Chloride Level 109 MMOL/L (98-107) H Carbon Dioxide Level 26 MMOL/L (21-32) Anion Gap 7 mmol/L (5-15) Blood Urea Nitrogen 16 mg/dL (7-18) Creatinine 0.5 MG/DL (0.55-1.30) L Estimat Glomerular Filtration Rate > 60 mL/min (>60) Glucose Level 127 MG/DL (74-106) H Calcium Level 8.3 MG/DL (8.5-10.1) L Phosphorus Level 2.9 MG/DL (2.5-4.9) Magnesium Level 1.8 MG/DL (1.8-2.4) Total Bilirubin 0.8 MG/DL (0.2-1.0) Aspartate Amino Transf (AST/SGOT) 55 U/L (15-37) H Alanine Aminotransferase (ALT/SGPT) 62 U/L (12-78) Alkaline Phosphatase 451 U/L (46-116) H Total Protein 6.3 G/DL (6.4-8.2) L Albumin 2.2 G/DL (3.4-5.0) L Globulin 4.1 g/dL Albumin/Globulin Ratio 0.5 (1.0-2.7) L Arterial Blood pH 7.503 (7.350-7.450) Arterial Blood Partial Pressure CO2 30.4 mmHg (35.0-45.0) L Arterial Blood Partial Pressure O2 159.9 mmHg (75.0-100.0) H Arterial Blood HCO3 23.3 mmol/L (22.0-26.0) Arterial Blood Oxygen Saturation 98.7 % (95-100) Arterial Blood Base Excess 1.0 (-2-2) Kem Test Positive Plan Problems: (1) Malfunction of gastrostomy tube Assessment & Plan: This is a 57-year-old male with malfunctioning G-tube in. G -tube cellulitis. I taken care of this patient for a long period of time and trying to help resolve this. This is actually the best it has looked and prior was significantly worse. I anticipated he would stay on TPN while the G-tube site completely closed with plans for a new G-tube placement in the future in a completely different site. Unfortunately seems that a G-tube is been placed into his prior closing site now is developing cellulitis around it again. For now given that its improved and not leaking significantly potentially cellulitis can improve and will continue with localized wound care. Apply zinc oxide around the tube and continue with tube use. Nutritional optimization is keys here. We will follow with recommendations. Thank you for allowing me to participate in patient's care Still leaking around G-tube site but erythema and skin changes much improved. Still has scaling skin with some erythema noted but significant improved as prior. G-tube in stable positioning. Dressings intact. Apply zinc oxide around G-tube site as needed with dressing changes. We will continue to monitor (2) Malfunction of jejunostomy tube (3) Abnormal LFTs Assessment & Plan: Patient with elevated t bili, d bili, alk phos remain elevated CT and US with cholelithiasis ?cbd stone will discuss with GI trend labs thank you Robert Gomez Nov 10, 2018 15:47
--- NOTE | 2018-11-10 16:00 | NUR ---
NURSE NOTES: Patient resting in bed at this time with no sign of acute distress. Patient remains alert and oriented to person and place but confused to time and purpose. Patient did well on weaning trial but the MD does not want to take the patient off of the ventilator. Patient placed back on setting of AC 14, tidal volume 500, FiO2 28%, and PEEP 5. Blood pressure 124/48, HR 20 with sinus rhythm on the perfect bind machine operator, SpO2 100%, RR 20, and temp 99.1. Cooling measures applied. Patient denies acute distress. Patient tube feeding resumed with osmolite 1.2 at 65mL/hr at this time with no residual. minimal brown/red discharge remains at the G tube site and a small skin tear also at the G tube site. Right upper arm PICC line remains patent, asymptomatic. Patient running levophed drip at 1mcg/hr at this time with blood pressure of 124/48. Suprapubic catheter remains asymptomatic with dressing intact. No redness or discharge noted. Urine clear and dark yellow at this time with no sediment. Patient bilateral upper and lower limbs contracted. Edema non-pitting noted in the upper extremity. Patient has healed sacral and left hop wounds that are covered with optifoam for protection. Patient elbows and heels elevated on pillows and patient on low air loss mattress at this time. Patient bed in low position with bed alarm on and call light in reach at this time. Will continue to monitor respiratory effort on weaning trial and blood pressure off of Levophed drip. Patient repositioned and oral care performed at this time.
[2018-11-10] MEDS ORDERED: NS Irrig 1000ml ONE (16:58)
[2018-11-10] MEDS ORDERED: NS 275ml ONE (16:58)
[2018-11-10] MEDS ORDERED: Tubing IV Secondary IV ONE (16:58)
--- NOTE | 2018-11-10 17:16 | Internal Med Progress Note ---
Subjective Date of Service: Nov 10, 2018 Physician Name Hernandez,Isidro Attending Physician Bruno Ko MD Current Medications Medications (Trade) Dose Ordered Sig/Vicenta Route PRN Reason Start Time Stop Time Status Last Admin Dose Admin Acetaminophen (Tylenol) 650 mg Q4H PRN ORAL fever 11/03/18 12:30 11/27/18 12:29 11/05/18 19:18 Acetaminophen (Tylenol) 650 mg Q4H PRN RECTAL Mild Pain (Pain Scale 1-3) 11/03/18 14:45 11/28/18 10:44 Chlorhexidine Gluconate (Caitlyn-Hex 2%) 1 applic DAILY@2000 TOPIC 11/03/18 20:00 11/28/18 19:59 11/09/18 20:38 Colistimethate Sodium (Colistin *inhalation use only*) 150 mg Q12HR@10,22 INH 11/06/18 22:00 11/13/18 21:59 11/09/18 21:09 Dextrose (Dextrose 50%) 25 ml Q30M PRN IV Hypoglycemia 11/03/18 12:30 11/27/18 14:29 Dextrose (Dextrose 50%) 50 ml Q30M PRN IV Hypoglycemia 11/03/18 12:30 11/27/18 14:29 Docusate Sodium (Colace) 100 mg BID GT 11/03/18 18:00 12/03/18 17:59 11/10/18 09:11 Gabapentin (Neurontin) 600 mg Q6HR GT 11/03/18 12:00 11/27/18 17:59 11/10/18 11:49 Heparin Sodium (Porcine) (Heparin 5000 units/ml) 5,000 units EVERY 12 HOURS SUBQ 11/03/18 21:00 11/27/18 20:59 11/10/18 09:15 Levetiracetam 100 ml @ 400 mls/hr Q12HR IVPB 11/03/18 21:00 11/30/18 20:59 11/10/18 09:11 Meropenem 1 gm/ Sodium Chloride 55 ml @ 110 mls/hr Q8HR IVPB 11/03/18 14:00 11/13/18 13:59 11/10/18 13:43 Metoclopramide HCl (Reglan) 10 mg Q6H PRN IVP severe nausea 11/03/18 12:11 12/03/18 12:10 Midodrine (Pro-Amatine) 10 mg EVERY 8 HOURS ORAL 11/04/18 14:00 12/04/18 13:59 11/10/18 13:43 Mineral Oil (Fleet's Mineral Oil Enema) 133 ml EVERY OTHER DAY RECTAL 11/04/18 09:00 11/30/18 08:59 Minocycline HCl (Minocin) 100 mg Q12H ORAL 11/07/18 05:00 11/14/18 04:59 11/10/18 05:38 Nitroglycerin (Ntg) 0.4 mg Q5M X 3 DOSES PRN SL Prn Chest Pain 11/03/18 12:12 12/03/18 12:11 Norepinephrine Bitartrate 4 mg/ Dextrose 250 ml @ 0 mls/hr Q24H IV 11/03/18 13:00 12/03/18 12:59 11/10/18 13:42 Pantoprazole (Protonix) 40 mg DAILY IV 11/04/18 09:00 11/28/18 08:59 11/10/18 09:11 Polyethylene Glycol (Miralax) 17 gm BEDTIME GT 11/03/18 21:00 12/03/18 20:59 11/08/18 21:31 Polyethylene Glycol (Miralax) 17 gm HSPRN PRN GT Constipation 11/03/18 12:12 12/03/18 12:11 Zinc Oxide (Zinc Oxide) 1 applic TIDPRN PRN TOPIC around g tube site 11/03/18 13:00 12/03/18 12:59 Allergies: Coded Allergies: SULFAMETHOXAZOLE (Verified Allergy, Unknown, 10/18/17) TRIMETHOPRIM (Verified Allergy, Unknown, 10/18/17) ROS Limited/Unobtainable: Yes Subjective 57 YO M admitted with J-tube malfunction. Now sepsis. Cover for Int Med-Dr Ko. S/P endoscopy 11/02/18. ICU. Intubated and sedated Objective Last Vital Signs Date Time Temp Pulse Resp B/P (MAP) Pulse Ox O2 Delivery O2 Flow Rate FiO2 11/10/18 15:24 63 18 30 11/10/18 14:00 119/46 (70) 100 11/10/18 12:00 Mechanical Ventilator 11/10/18 11:45 98.6 11/05/18 13:50 65.0 Laboratory Tests Test 11/10/18 03:45 11/10/18 09:25 White Blood Count 6.3 K/UL (4.8-10.8) Red Blood Count 4.10 M/UL (4.70-6.10) L Hemoglobin 12.1 G/DL (14.2-18.0) L Hematocrit 37.6 % (42.0-52.0) L Mean Corpuscular Volume 92 FL (80-99) Mean Corpuscular Hemoglobin 29.4 PG (27.0-31.0) Mean Corpuscular Hemoglobin Concent 32.1 G/DL (32.0-36.0) Red Cell Distribution Width 19.3 % (11.6-14.8) H Platelet Count 300 K/UL (150-450) Mean Platelet Volume 5.9 FL (6.5-10.1) L Neutrophils (%) (Auto) 52.2 % (45.0-75.0) Lymphocytes (%) (Auto) 32.3 % (20.0-45.0) Monocytes (%) (Auto) 12.3 % (1.0-10.0) H Eosinophils (%) (Auto) 1.9 % (0.0-3.0) Basophils (%) (Auto) 1.3 % (0.0-2.0) Sodium Level 142 MMOL/L (136-145) Potassium Level 4.2 MMOL/L (3.5-5.1) Chloride Level 109 MMOL/L (98-107) H Carbon Dioxide Level 26 MMOL/L (21-32) Anion Gap 7 mmol/L (5-15) Blood Urea Nitrogen 16 mg/dL (7-18) Creatinine 0.5 MG/DL (0.55-1.30) L Estimat Glomerular Filtration Rate > 60 mL/min (>60) Glucose Level 127 MG/DL (74-106) H Calcium Level 8.3 MG/DL (8.5-10.1) L Phosphorus Level 2.9 MG/DL (2.5-4.9) Magnesium Level 1.8 MG/DL (1.8-2.4) Total Bilirubin 0.8 MG/DL (0.2-1.0) Aspartate Amino Transf (AST/SGOT) 55 U/L (15-37) H Alanine Aminotransferase (ALT/SGPT) 62 U/L (12-78) Alkaline Phosphatase 451 U/L (46-116) H Total Protein 6.3 G/DL (6.4-8.2) L Albumin 2.2 G/DL (3.4-5.0) L Globulin 4.1 g/dL Albumin/Globulin Ratio 0.5 (1.0-2.7) L Arterial Blood pH 7.503 (7.350-7.450) Arterial Blood Partial Pressure CO2 30.4 mmHg (35.0-45.0) L Arterial Blood Partial Pressure O2 159.9 mmHg (75.0-100.0) H Arterial Blood HCO3 23.3 mmol/L (22.0-26.0) Arterial Blood Oxygen Saturation 98.7 % (95-100) Arterial Blood Base Excess 1.0 (-2-2) Kem Test Positive Intake and Output 11/09/18 11/10/18 19:00 07:00 Intake Total 1834.160 ml 1025.625 ml Output Total 2130 ml 560 ml Balance -295.840 ml 465.625 ml Free Water 120 ml IV Total 934.160 ml 245.625 ml Tube Feeding 780 ml 780 ml Output Urine Total 2130 ml 560 ml Other 0 ml 0 ml # Bowel Movements 2 1 Objective PHYSICAL EXAMINATION: GENERAL: The patient is a well-developed and well-nourished white male, in no apparent distress. HEENT: Eyes, pupils are equal and responsive to light and accommodation. Extraocular movements are intact. NECK: Supple without lymphadenopathy. CHEST: Lungs are clear to auscultation bilaterally without wheezes or rales. CARDIOVASCULAR: Regular rhythm and rate. S1 and S2 are normal without murmurs, rubs, or gallops. ABDOMEN: Soft, nontender, and nondistended. Positive bowel sounds. No evidence of hepatosplenomegaly. Currently, no rebound or guarding noted. EXTREMITIES: Negative for clubbing, cyanosis, or edema. RECTAL/GENITAL: Not performed. NEUROLOGIC: Cranial nerves II through XII are grossly intact without focal deficits. Motor strength is 5/5 bilaterally. Deep tendon reflexes are 2+ plantar. Assessment/Plan Assessment/Plan ASSESSMENT: This is a 57-year-old male. 1. Gastrostomy tube malfunction. 2. Respiratory failure. 3. Seizure disorder. 4. Chronic obstructive pulmonary disease. 5. Gastroesophageal reflux disease. 6. Neurogenic bladder. 7. Hypothyroidism. 8. Quadriplegia. 9. Tracheostomy in situ. 10. Sepsis=ESBL Proteus mirabilis TREATMENT: 1. J-tube malfunction. A Gastroenterology consultation has been obtained with Dr. Kvng Lehman. scheduled endoscopic replacement of J-tube on October 30, 2018 postponed due to hypokalemia. Reschedule per GI 2. Respiratory failure. A Pulmonary consultation has been obtained with Dr. Mellissa Garcia. Continue DuoNebs as above. 3. Seizure disorder. Continue Keppra and Neurontin as above. 4. Chronic obstructive pulmonary disease. As above, a Pulmonary consultation has been obtained with Dr. Mellissa Garcia. 5. Gastroesophageal reflux disease. Continue famotidine as above. 6. Neurogenic bladder. The patient is status post suprapubic catheter placement. 7. Hypothyroidism. Continue Levoxyl as above. 8. Quadriplegia. 9. Tracheostomy in situ. 10. Hypokalemia. Replace K+ 11. ABX=meropenem and inhaled colistin per ID 12. S/P endoscopy with jejunostomy tube placed 11/02/18 Isidro Hernandez MD Nov 10, 2018 17:16
--- NOTE | 2018-11-10 18:38 | Cardiac Electrophysiology PN ---
Assessment/Plan Assessment/Plan 1. Sinus tachycardia . Off metoprolol in view of hypotension needing pressors 2. Septic shock on Levophed and Midodrine and Abc. 3. Dysphagia, status post GJ-tube malfunction. S/P new GJ-tube placement 11/02/18 4. Respiratory failure, tracheostomy in place 5. Seizure disorder. 6. COPD. 7. Gastroesophageal reflux disease. 8. Neurogenic bladder status post suprapubic catheter. 9. Hypothyroidism. 10. Quadriplegia. 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 Subjective In ICU on the vent and still on 1 mcg Levophed but alert and responsive Objective Last 24 Hour Vital Signs Date Time Temp Pulse Resp B/P (MAP) Pulse Ox O2 Delivery O2 Flow Rate FiO2 11/10/18 18:00 72 23 130/49 (76) 100 11/10/18 17:30 68 23 121/50 (73) 100 11/10/18 17:00 65 18 121/50 (73) 100 11/10/18 17:00 75 28 30 11/10/18 16:00 28 11/10/18 16:00 65 11/10/18 16:00 Mechanical Ventilator 11/10/18 16:00 99.1 64 22 127/47 (73) 100 11/10/18 15:24 63 18 30 11/10/18 15:00 59 26 121/46 (71) 100 11/10/18 14:00 60 20 119/46 (70) 100 11/10/18 14:00 133/54 11/10/18 13:42 109/45 11/10/18 13:16 66 15 30 11/10/18 13:00 110/47 11/10/18 13:00 67 12 118/46 (70) 100 11/10/18 12:00 60 11/10/18 12:00 116/51 11/10/18 12:00 Mechanical Ventilator 11/10/18 12:00 28 11/10/18 11:45 98.6 67 7 103/44 (63) 100 11/10/18 11:30 63 18 107/47 (67) 100 11/10/18 11:30 103/44 11/10/18 11:15 59 17 96/40 (58) 100 11/10/18 11:00 96/40 11/10/18 11:00 61 18 114/52 (72) 100 11/10/18 10:45 61 13 113/52 (72) 100 11/10/18 10:45 114/52 11/10/18 10:38 62 20 100 Mechanical Ventilator 28 11/10/18 10:37 63 21 30 11/10/18 10:30 113/52 11/10/18 10:30 64 17 112/50 (70) 100 11/10/18 10:21 67 11 96/48 (64) 100 11/10/18 10:15 96/48 11/10/18 10:15 64 19 79/36 (50) 100 11/10/18 10:00 64 18 80/36 (51) 100 11/10/18 10:00 79/36 11/10/18 09:45 64 16 80/35 (50) 100 11/10/18 09:30 64 8 82/35 (51) 100 11/10/18 09:00 64 24 114/46 (68) 100 11/10/18 08:43 100 11/10/18 08:42 61 22 28 11/10/18 08:41 Mechanical Ventilator 30 11/10/18 08:41 Mechanical Ventilator 28 11/10/18 08:00 28 11/10/18 08:00 98.7 64 22 99/41 (60) 100 11/10/18 08:00 63 11/10/18 08:00 Mechanical Ventilator 11/10/18 07:45 64 23 100/42 (61) 100 11/10/18 07:30 67 21 105/46 (65) 100 11/10/18 07:15 67 24 128/46 (73) 100 11/10/18 07:15 128/52 11/10/18 07:00 61 15 105/46 (65) 100 11/10/18 07:00 105/46 11/10/18 06:57 64 22 28 11/10/18 06:30 61 15 110/50 (70) 100 11/10/18 06:15 61 15 122/50 (74) 100 11/10/18 06:00 59 15 118/49 (72) 100 11/10/18 06:00 128/52 11/10/18 05:30 66 19 99/43 (61) 100 11/10/18 05:11 64 18 30 11/10/18 05:00 91/38 11/10/18 05:00 64 18 92/41 (58) 100 11/10/18 04:30 70 19 99/51 (67) 100 11/10/18 04:00 Mechanical Ventilator 11/10/18 04:00 66 19 100/40 (60) 100 11/10/18 04:00 28 11/10/18 04:00 100/45 11/10/18 04:00 74 11/10/18 03:30 64 21 94/45 (61) 100 11/10/18 03:00 104/49 11/10/18 03:00 69 21 104/49 (67) 100 11/10/18 02:30 67 22 103/43 (63) 100 11/10/18 02:30 66 21 30 11/10/18 02:00 117/53 11/10/18 02:00 61 17 111/52 (71) 100 11/10/18 01:30 66 19 95/40 (58) 100 11/10/18 01:30 81/39 11/10/18 01:00 68 18 90/37 (54) 100 11/10/18 00:30 65 14 30 11/10/18 00:30 65 17 83/37 (52) 100 11/10/18 00:00 68 17 90/38 (55) 100 11/10/18 00:00 76 11/10/18 00:00 28 11/10/18 00:00 Mechanical Ventilator 11/09/18 23:30 69 20 97/44 (61) 100 11/09/18 23:15 66 20 99/38 (58) 100 11/09/18 23:00 99/38 11/09/18 23:00 67 18 110/47 (68) 100 11/09/18 22:50 75 14 30 11/09/18 22:45 73 20 104/50 (68) 100 11/09/18 22:30 67 18 92/44 (60) 100 11/09/18 22:15 68 21 93/44 (60) 100 11/09/18 22:00 93/44 11/09/18 22:00 69 20 91/44 (60) 100 11/09/18 21:30 78 14 105/48 (67) 100 11/09/18 21:20 70 16 100 Mechanical Ventilator 28 11/09/18 21:15 61 13 103/47 (65) 100 8/19/19 21:10 68 14 100 Mechanical Ventilator 30 11/09/18 21:08 70 14 30 11/09/18 21:00 69 19 93/43 (60) 100 11/09/18 21:00 103/47 11/09/18 20:45 71 19 97/42 (60) 100 11/09/18 20:30 70 18 98/45 (62) 100 11/09/18 20:15 78 18 97/47 (64) 100 11/09/18 20:00 28 11/09/18 20:00 Mechanical Ventilator 11/09/18 20:00 97/47 11/09/18 20:00 98.9 77 20 102/48 (66) 100 11/09/18 20:00 80 11/09/18 19:00 104/47 11/09/18 19:00 78 19 101/47 (65) 100 11/09/18 18:45 96/44 11/09/18 18:40 71 20 30 Intake and Output 11/09/18 11/10/18 19:00 07:00 Intake Total 1834.160 ml 1025.625 ml Output Total 2130 ml 560 ml Balance -295.840 ml 465.625 ml Free Water 120 ml IV Total 934.160 ml 245.625 ml Tube Feeding 780 ml 780 ml Output Urine Total 2130 ml 560 ml Other 0 ml 0 ml # Bowel Movements 2 1 Laboratory Tests Test 11/10/18 03:45 11/10/18 09:25 White Blood Count 6.3 K/UL (4.8-10.8) Red Blood Count 4.10 M/UL (4.70-6.10) L Hemoglobin 12.1 G/DL (14.2-18.0) L Hematocrit 37.6 % (42.0-52.0) L Mean Corpuscular Volume 92 FL (80-99) Mean Corpuscular Hemoglobin 29.4 PG (27.0-31.0) Mean Corpuscular Hemoglobin Concent 32.1 G/DL (32.0-36.0) Red Cell Distribution Width 19.3 % (11.6-14.8) H Platelet Count 300 K/UL (150-450) Mean Platelet Volume 5.9 FL (6.5-10.1) L Neutrophils (%) (Auto) 52.2 % (45.0-75.0) Lymphocytes (%) (Auto) 32.3 % (20.0-45.0) Monocytes (%) (Auto) 12.3 % (1.0-10.0) H Eosinophils (%) (Auto) 1.9 % (0.0-3.0) Basophils (%) (Auto) 1.3 % (0.0-2.0) Sodium Level 142 MMOL/L (136-145) Potassium Level 4.2 MMOL/L (3.5-5.1) Chloride Level 109 MMOL/L (98-107) H Carbon Dioxide Level 26 MMOL/L (21-32) Anion Gap 7 mmol/L (5-15) Blood Urea Nitrogen 16 mg/dL (7-18) Creatinine 0.5 MG/DL (0.55-1.30) L Estimat Glomerular Filtration Rate > 60 mL/min (>60) Glucose Level 127 MG/DL (74-106) H Calcium Level 8.3 MG/DL (8.5-10.1) L Phosphorus Level 2.9 MG/DL (2.5-4.9) Magnesium Level 1.8 MG/DL (1.8-2.4) Total Bilirubin 0.8 MG/DL (0.2-1.0) Aspartate Amino Transf (AST/SGOT) 55 U/L (15-37) H Alanine Aminotransferase (ALT/SGPT) 62 U/L (12-78) Alkaline Phosphatase 451 U/L (46-116) H Total Protein 6.3 G/DL (6.4-8.2) L Albumin 2.2 G/DL (3.4-5.0) L Globulin 4.1 g/dL Albumin/Globulin Ratio 0.5 (1.0-2.7) L Arterial Blood pH 7.503 (7.350-7.450) Arterial Blood Partial Pressure CO2 30.4 mmHg (35.0-45.0) L Arterial Blood Partial Pressure O2 159.9 mmHg (75.0-100.0) H Arterial Blood HCO3 23.3 mmol/L (22.0-26.0) Arterial Blood Oxygen Saturation 98.7 % (95-100) Arterial Blood Base Excess 1.0 (-2-2) Kem Test Positive Objective HEAD AND NECK: No JVD or carotid bruits. Status post tracheostomy. LUNGS: Coarse rhonchi. CARDIOVASCULAR: Shows regular S1 and S2 with no gallop or murmur. ABDOMEN: Soft. The GJ-tube is out. EXTREMITIES: No pitting edema. Rai Dobbs MD Nov 10, 2018 18:38
--- NOTE | 2018-11-10 19:30 | NUR ---
NURSE NOTES: Received report from Tiarra Nieves RN. Patient awake,alert responds by nodding head to yes/no questions. Trach to vent no s/s of acute distress noted. HOB elevated. Continue on Levophed drip with current rate at 1mcg/min via right upper arm double lumen PICC line. Noted with generalized edema. Abdomen is large, round, soft non-tender to touch with active bowel sounds in all quadrants. GJ tube is present on upper quadrant with feeding Osmolyte 1.2 running at 65ml/hr, no residual. Suprapubic catheter is in place, draining yellow/mildly cloudy with sediments urine. Skin has Optifoam dressing on sacrum, intact/dry. On P200 mattress for wound management. Patient has bilateral upper and lower extremity contracture, supported with pillows for comfort. Bed locked and in lowest position. Will continue to monitor plan of care.
--- NOTE | 2018-11-10 19:30 | NUR ---
NURSE NOTES: Received change of shift report from Tiarra Nieves RN. Pt is asleep, awakens to name/touch, responds by nodding head to yes/no questions. Pt has trach Shiley 6.0 connected to vent with settings AC14, VT500, Peep 5.0, FIO2 28% with O2sat at 100%, and bilateral inspiratory/expiratory rhonchi heard on auscultation. hospital cleaning specialist displays NSR with heart rate now in the low 60's, while pt is maintained on Levophed drip with current rate at 1mcg/min via right upper arm double lumen PICC line. Weak peripheral pulses noted on palpation with generalized edema. Abdomen is large, round, soft/nontender to touch with active bowel sounds in all quadrants. GJ tube is present on upper quadrant with feeding Osmolyte 1.2 infusing at goal rate of 65ml/hr. Pt is tolerating feeding well with no residual. Suprapubic catheter is in place, draining yellow/mildly cloudy with sediments urine. Skin has optifoam dressing on sacrum, intact/dry. Pt has bilateral upper and lower extremity contracture and is on P200 pressure release mattress. Head of bed at 30 degrees, bed in lowest position, three side rails up and locked. Will continue to monitor pt and follow plan of care per MD orders and Addendum: 11/11/18 at 0142 by ADDI FLORES RN wrong chart
--- NOTE | 2018-11-10 19:44 | NUR ---
HAND-OFF: Report given to OPAL Mendieta. Patient vital signs stable with no sign of acute distress. Patient blood pressure 119/46 on levophed drip at 1mcg/hr at this time. Endorsed to follow up.
[2018-11-10] MEDS: Miralax 17gm pkt GT SCH (20:42)
[2018-11-10] MEDS: Dyna-Hex 2% Top Sol 2oz TOPIC SCH (20:42)
--- NOTE | 2018-11-10 21:30 | NUR ---
NURSE NOTES: Turned and repositioned. oral care provided. Contact isolation maintained and observed. Remained on Levophed drip at 1mcg/min Blood pressure 122/42 HR 64. Frequent visual checks continued. No s/s of pain or discomfort. No episode of seizure, seizure precaution maintained and observed. Will continue plan of care.
--- NOTE | 2018-11-10 23:00 | NUR ---
NURSE NOTES: Levophed drip off at 2300 Blood pressure 138/54 HR 57. Patient awake,alert watching TV. no s/s of acute distress noted. Turned and repositioned. oral care provided. Will continue to monitor patient.
[2018-11-11] VITALS (24 sets, daily range): BP systolic 99–155; BP diastolic 39–65
[2018-11-11] MEDS: Gabapentin 300 MG/6 ML Soln GT SCH ×3 (00:43→11:18)
--- NOTE | 2018-11-11 01:00 | NUR ---
NURSE NOTES: Levophed drip still off, patient Blood pressure 115/40 HR 71. Denies any pain or discomfort. No s/s of acute distress noted. Frequent visual checks continued.
--- NOTE | 2018-11-11 03:00 | NUR ---
NURSE NOTES: Bed bath given tolerated well. with x1 medium lose stool. held Miralax at 2100. oral care done. Off Levo BP 114/48 HR 68.
--- NOTE | 2018-11-11 05:00 | NUR ---
NURSE NOTES: Off Levo BP 109/47 HR 62. No s/s of acute distress noted. No moaning no facial grimaces. Repositioned every 2 hour. Contact isolation maintained and observed. Will continue plan of care.
[2018-11-11] MEDS: Minocycline HCl 50mg cap ORAL SCH (05:55)
[2018-11-11] MEDS: Midodrine 10mg tab ORAL SCH (05:56)
[2018-11-11] MEDS: Meropenem 1 GM in NS 55 ML IVPB SCH (05:56)
[2018-11-11 06:12] LABS: BASOPHILS % (AUTO) 0.9 % (0.0-2.0); EOSINOPHILS % (AUTO) 2.9 % (0.0-3.0); HEMATOCRIT 39.6 % (42.0-52.0); HEMOGLOBIN 12.6 G/DL (14.2-18.0); LYMPHOCYTES % (AUTO) 28.7 % (20.0-45.0); MEAN CORPUSCULAR VOLUME 92 FL (80-99); MONOCYTES % (AUTO) 7.7 % (1.0-10.0); NEUTROPHILS % (AUTO) 59.9 % (45.0-75.0); PLATELET COUNT 230 K/UL (150-450); RED BLOOD COUNT 4.31 M/UL (4.70-6.10); RED CELL DISTRIBUTION WIDTH 18.9 % (11.6-14.8); WHITE BLOOD COUNT 5.4 K/UL (4.8-10.8)
[2018-11-11 06:26] LABS: ALANINE AMINOTRANSFERASE 57 U/L (12-78); ALBUMIN 2.4 G/DL (3.4-5.0); ALBUMIN/GLOBULIN RATIO 0.6 (1.0-2.7); ALKALINE PHOSPHATASE 452 U/L (46-116); ANION GAP 6 mmol/L (5-15); ASPARTATE AMINO TRANSFERASE 47 U/L (15-37); BILIRUBIN,TOTAL 0.9 MG/DL (0.2-1.0); BLOOD UREA NITROGEN 17 mg/dL (7-18); CALCIUM 8.6 MG/DL (8.5-10.1); CARBON DIOXIDE 29 MMOL/L (21-32); CHLORIDE 107 MMOL/L (98-107); CREATININE 0.5 MG/DL (0.55-1.30); POTASSIUM 3.7 MMOL/L (3.5-5.1); SODIUM 141 MMOL/L (136-145)
--- NOTE | 2018-11-11 06:58 | NUR ---
RESPIRATORY NOTE: Received pt on vent settings: AC 14-500ml-28% FiO2- peep 5. Pt is trach with Shiley cuffed 6.0, secured by trach tie. Pt is awake, alert and resting comfortably in the bed, no SOB or resp distress noted. Calin rhonchi diminished breath sounds heard upon auscultation, suctioned small amount of thick white/bhatia secretions without incidents. Alarms are set and audible, vent is plugged into the red outlet, ambu bag and spare trache kit at bedside. Will try to wean pt in the next vent check and continue to monitor and suction as needed.
--- NOTE | 2018-11-11 07:10 | NUR ---
HAND-OFF: Report given to Bakari JOSEPH.
--- NOTE | 2018-11-11 07:11 | NUR ---
NURSE NOTES: RECEIVED PATIENT FROM Marco FLORES RN. PATIENT IS LYING IN BED AWAKE AND RESPONSIVE BUT NONVERBAL. HOOKED TO CHIEF ENTERPRISE ARCHITECT. TRACH TO VENT. SHILEY 6, VENT SETTINGS AV 14, TV 500, FiO2 28, PEEP 5. NO SIGNS OF DISTRESS OF THE MOMENT. GT IN PLACE, HELD TUBE FEEDING DUE TO WEANING TODAY. ON SUPRAPUBIC CATH CONNECTED TO BAG, DRAINING URINE. ON OVERLAY MATTRESS. NOTED SKIN REDNESS DUE TO INCONTINENCE. PICC ON R UA, DRESSING DRY AND INTACT, IVF TKO. CALL LIGHT WITHIN REACH. BED AT LOWEST POSITION. SIDE RAILS UP. WILL CONTINUE TO MONITOR.
--- NOTE | 2018-11-11 07:53 | Urology Progress Note ---
Assessment/Plan Status: unchanged Assessment/Plan: 1. Urinary retention with chronic suprapubic tube. 2. Neurogenic bladder. 3. Hydronephrosis, which appears to be chronic. 4. Nephrolithiasis. 5. Cystitis. 6. Hematuria. 7. Probable colonized urine. 8. Sepsis. monitor clinically keep SP tube, last exchanged 10/24 hand irrigated and do PRN position satisfactory, intermittent leakage from penis abx as ordered consider nuclear renal scan f/u on blood cx Subjective Allergies: Coded Allergies: SULFAMETHOXAZOLE (Verified Allergy, Unknown, 10/18/17) TRIMETHOPRIM (Verified Allergy, Unknown, 10/18/17) Subjective some more SP tube output, less penile output per nurse, weaned off pressors Objective Last 24 Hour Vital Signs Date Time Temp Pulse Resp B/P (MAP) Pulse Ox O2 Delivery O2 Flow Rate FiO2 11/11/18 07:00 60 14 124/56 (78) 100 11/11/18 06:58 66 14 28 11/11/18 06:30 57 6 111/56 (74) 100 11/11/18 06:00 60 15 126/46 (72) 100 11/11/18 05:30 59 12 109/47 (67) 100 11/11/18 05:00 62 13 122/44 (70) 100 11/11/18 04:33 66 16 30 11/11/18 04:30 66 16 126/49 (74) 100 11/11/18 04:00 Mechanical Ventilator 11/11/18 04:00 98.0 67 15 122/50 (74) 100 11/11/18 04:00 65 11/11/18 04:00 28 11/11/18 03:30 70 16 114/48 (70) 100 11/11/18 03:23 68 16 30 11/11/18 03:00 57 7 115/43 (67) 100 11/11/18 02:30 65 11 107/42 (63) 100 11/11/18 02:00 69 8 111/42 (65) 99 11/11/18 01:30 70 3 117/42 (67) 99 11/11/18 01:06 70 19 30 11/11/18 01:00 66 15 124/48 (73) 99 11/11/18 00:30 61 18 134/58 (83) 100 11/11/18 00:15 56 13 142/54 (83) 100 11/11/18 00:00 Mechanical Ventilator 11/11/18 00:00 98.1 59 12 155/65 (95) 100 11/10/18 23:00 57 17 138/54 (82) 100 11/10/18 22:45 62 13 106/45 (65) 100 11/10/18 22:30 65 14 30 11/10/18 22:30 64 14 100 11/10/18 22:30 68 12 105/44 (64) 100 11/10/18 22:21 63 14 100 Mechanical Ventilator 28 11/10/18 22:15 68 12 112/41 (64) 100 11/10/18 22:11 89 15 100 Mechanical Ventilator 28 11/10/18 22:00 68 12 124/46 (72) 100 11/10/18 22:00 119/42 11/10/18 21:31 59 16 30 11/10/18 21:30 78 21 152/59 (90) 100 11/10/18 21:00 114/45 11/10/18 21:00 63 13 116/45 (68) 100 11/10/18 20:30 66 13 126/46 (72) 100 11/10/18 20:00 123/56 11/10/18 20:00 98.6 66 22 120/47 (71) 100 11/10/18 20:00 Mechanical Ventilator 11/10/18 20:00 66 11/10/18 20:00 28 11/10/18 19:01 62 20 30 11/10/18 19:00 143/52 11/10/18 19:00 67 21 124/45 (71) 100 11/10/18 18:30 67 20 119/47 (71) 100 11/10/18 18:00 72 23 130/49 (76) 100 11/10/18 18:00 125/42 11/10/18 17:30 68 23 121/50 (73) 100 11/10/18 17:00 65 18 121/50 (73) 100 11/10/18 17:00 132/49 11/10/18 17:00 75 28 30 11/10/18 16:00 28 11/10/18 16:00 124/48 11/10/18 16:00 65 11/10/18 16:00 Mechanical Ventilator 11/10/18 16:00 99.1 64 22 127/47 (73) 100 11/10/18 15:24 63 18 30 11/10/18 15:00 131/51 11/10/18 15:00 59 26 121/46 (71) 100 11/10/18 14:00 60 20 119/46 (70) 100 11/10/18 14:00 133/54 11/10/18 13:42 109/45 11/10/18 13:16 66 15 30 11/10/18 13:00 110/47 11/10/18 13:00 67 12 118/46 (70) 100 11/10/18 12:00 60 11/10/18 12:00 116/51 11/10/18 12:00 Mechanical Ventilator 11/10/18 12:00 28 11/10/18 11:45 98.6 67 7 103/44 (63) 100 11/10/18 11:30 63 18 107/47 (67) 100 11/10/18 11:30 103/44 11/10/18 11:15 59 17 96/40 (58) 100 11/10/18 11:00 96/40 11/10/18 11:00 61 18 114/52 (72) 100 11/10/18 10:45 61 13 113/52 (72) 100 11/10/18 10:45 114/52 11/10/18 10:38 62 20 100 Mechanical Ventilator 28 11/10/18 10:37 63 21 30 11/10/18 10:30 113/52 11/10/18 10:30 64 17 112/50 (70) 100 11/10/18 10:21 67 11 96/48 (64) 100 11/10/18 10:15 96/48 11/10/18 10:15 64 19 79/36 (50) 100 11/10/18 10:00 64 18 80/36 (51) 100 11/10/18 10:00 79/36 11/10/18 09:45 64 16 80/35 (50) 100 11/10/18 09:30 64 8 82/35 (51) 100 11/10/18 09:00 64 24 114/46 (68) 100 11/10/18 08:43 100 11/10/18 08:42 61 22 28 11/10/18 08:41 Mechanical Ventilator 30 11/10/18 08:41 Mechanical Ventilator 28 11/10/18 08:00 28 11/10/18 08:00 98.7 64 22 99/41 (60) 100 11/10/18 08:00 63 11/10/18 08:00 Mechanical Ventilator Intake and Output 11/10/18 11/11/18 18:59 06:59 Intake Total 764.6870 ml 1135.00 ml Output Total 1010 ml 905 ml Balance -245.3130 ml 230.00 ml Free Water 55 ml 200 ml IV Total 189.6870 ml 225.00 ml Tube Feeding 520 ml 650 ml Other 60 ml Output Urine Total 1010 ml 905 ml Other 0 ml 0 ml # Bowel Movements 1 2 Microbiology Date/Time Source Procedure Growth Status 11/05/18 12:15 Blood Blood Culture - Final NO GROWTH AFTER 5 DAYS Complete 10/31/18 21:30 Sputum Gram Stain - Final Complete 10/31/18 21:30 Sputum Culture - Final A.baumanii Complx - Mdr Usual Respiratory Nataly Complete 11/03/18 12:40 Urine,Clean Catch Urine Culture - Final Yeast Species Complete 11/01/18 03:00 Abdomen Gram Stain - Final Complete 11/01/18 03:00 Wound Culture - Final A.baumanii Complx - Mdr Wanda Albicans Usual Skin Nataly Complete Current Medications Medications (Trade) Dose Ordered Sig/Vicenta Route PRN Reason Start Time Stop Time Status Last Admin Dose Admin Acetaminophen (Tylenol) 650 mg Q4H PRN ORAL fever 11/03/18 12:30 11/27/18 12:29 11/05/18 19:18 Acetaminophen (Tylenol) 650 mg Q4H PRN RECTAL Mild Pain (Pain Scale 1-3) 11/03/18 14:45 11/28/18 10:44 Chlorhexidine Gluconate (Caitlyn-Hex 2%) 1 applic DAILY@1999 TOPIC 11/03/18 20:00 11/28/18 19:59 11/10/18 20:42 Colistimethate Sodium (Colistin *inhalation use only*) 150 mg Q12HR@10,22 INH 11/06/18 22:00 11/13/18 21:59 11/10/18 22:07 Dextrose (Dextrose 50%) 25 ml Q30M PRN IV Hypoglycemia 11/03/18 12:30 11/27/18 14:29 Dextrose (Dextrose 50%) 50 ml Q30M PRN IV Hypoglycemia 11/03/18 12:30 11/27/18 14:29 Docusate Sodium (Colace) 100 mg BID GT 11/03/18 18:00 12/03/18 17:59 11/10/18 09:11 Gabapentin (Neurontin) 600 mg Q6HR GT 11/03/18 12:00 11/27/18 17:59 11/11/18 05:55 Heparin Sodium (Porcine) (Heparin 5000 units/ml) 5,000 units EVERY 12 HOURS SUBQ 11/03/18 21:00 11/27/18 20:59 11/10/18 20:42 Levetiracetam 100 ml @ 400 mls/hr Q12HR IVPB 11/03/18 21:00 11/30/18 20:59 11/10/18 20:42 Meropenem 1 gm/ Sodium Chloride 55 ml @ 110 mls/hr Q8HR IVPB 11/03/18 14:00 11/13/18 13:59 11/11/18 05:56 Metoclopramide HCl (Reglan) 10 mg Q6H PRN IVP severe nausea 11/03/18 12:11 12/03/18 12:10 Midodrine (Pro-Amatine) 10 mg EVERY 8 HOURS ORAL 11/04/18 14:00 12/04/18 13:59 11/10/18 22:54 Mineral Oil (Fleet's Mineral Oil Enema) 133 ml EVERY OTHER DAY RECTAL 11/04/18 09:00 11/30/18 08:59 Minocycline HCl (Minocin) 100 mg Q12H ORAL 11/07/18 05:00 11/14/18 04:59 11/11/18 05:55 Nitroglycerin (Ntg) 0.4 mg Q5M X 3 DOSES PRN SL Prn Chest Pain 11/03/18 12:12 12/03/18 12:11 Norepinephrine Bitartrate 4 mg/ Dextrose 250 ml @ 0 mls/hr Q24H IV 11/03/18 13:00 12/03/18 12:59 11/10/18 13:42 Pantoprazole (Protonix) 40 mg DAILY IV 11/04/18 09:00 11/28/18 08:59 11/10/18 09:11 Polyethylene Glycol (Miralax) 17 gm BEDTIME GT 11/03/18 21:00 12/03/18 20:59 11/08/18 21:31 Polyethylene Glycol (Miralax) 17 gm HSPRN PRN GT Constipation 11/03/18 12:12 12/03/18 12:11 Zinc Oxide (Zinc Oxide) 1 applic TIDPRN PRN TOPIC around g tube site 11/03/18 13:00 12/03/18 12:59 Laboratory Tests 11/10/18 09:25: Arterial Blood pH 7.503H, Arterial Blood Partial Pressure CO2 30.4L, Arterial Blood Partial Pressure O2 159.9H, Arterial Blood HCO3 23.3, Arterial Blood Oxygen Saturation 98.7, Arterial Blood Base Excess 1.0, Kem Test Positive 11/11/18 05:19: White Blood Count 5.4, Red Blood Count 4.31L, Hemoglobin 12.6L, Hematocrit 39.6L , Mean Corpuscular Volume 92, Mean Corpuscular Hemoglobin 29.2, Mean Corpuscular Hemoglobin Concent 31.8L, Red Cell Distribution Width 18.9H, Platelet Count 230, Mean Platelet Volume 6.4L, Neutrophils (%) (Auto) 59.9, Lymphocytes (%) (Auto) 28.7, Monocytes (%) (Auto) 7.7, Eosinophils (%) (Auto) 2.9, Basophils (%) (Auto) 0.9, Sodium Level 141, Potassium Level 3.7, Chloride Level 107, Carbon Dioxide Level 29, Anion Gap 6, Blood Urea Nitrogen 17, Creatinine 0.5L, Estimat Glomerular Filtration Rate > 60, Glucose Level 127H, Calcium Level 8.6, Total Bilirubin 0.9, Aspartate Amino Transf (AST/SGOT) 47H, Alanine Aminotransferase (ALT/SGPT) 57, Alkaline Phosphatase 452H, Total Protein 6.7, Albumin 2.4L, Globulin 4.3, Albumin/Globulin Ratio 0.6L Height (Feet): 5 Height (Inches): 4.00 Weight (Pounds): 210 Objective exam stable SP tube in place, urine yellow/miriam Bamshad,Ascencion Travis MD Nov 11, 2018 07:53
[2018-11-11 08:30] LABS: PHOSPHORUS 2.9 MG/DL (2.5-4.9)
--- NOTE | 2018-11-11 08:55 | NUR ---
RESPIRATORY NOTE: Pt i awake, alert, follows simple commands, understand the weaning plan. Placed pt on CPAP PS 8 peep 6, 28% FiO3 Addendum: 11/11/18 at 1002 by Belen Ruiz Ribeiro RT Placed pt on CPAP PS 8, peep 5, 28% FiO2. Pt went straight to Apnea mode. Coaching pt to take deep breath but pt still in apnea mode for few minutes. Placed pt back on AC with the same previous settings, no SOB or resp distress noted. OPAL Villegas and MIGUE Johnson made aware. Will continue to monitor pt and suction q2h and as needed.
[2018-11-11] MEDS: Docusate 100mg tablet GT SCH (09:00)
[2018-11-11] MEDS: Pantoprazole Inj IV SCH (09:26)
[2018-11-11] MEDS: Heparin 5000 units/ml inj SUBQ SCH (09:26)
--- NOTE | 2018-11-11 09:30 | Pulmonolgy Critical Care Note ---
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 Respiratory: monitor respiratory rate Cardiac: continue pressors, continue to monitor HR/BP, other - off levophed Renal: F/U I&O, keep IV fluid, check electrolytes Infectious Disease: check cultures Gastrointestinal: continue feedings/current rate Endocrine: monitor blood sugar Hematologic: monitor H/H Neurologic: PRN Ativan, PRN Morphine, keep patient comfortable Prophylaxis: Protonix Time Spent (Minutes): 40 Notes Reviewed: cardio Discussed with: nurses, consultants, correctional case records supervisormanager support - Objective Last 24 Hour Vital Signs Date Time Temp Pulse Resp B/P (MAP) Pulse Ox O2 Delivery O2 Flow Rate FiO2 11/11/18 07:00 60 14 124/56 (78) 100 11/11/18 06:58 66 14 28 11/11/18 06:30 57 6 111/56 (74) 100 11/11/18 06:00 60 15 126/46 (72) 100 11/11/18 05:30 59 12 109/47 (67) 100 11/11/18 05:00 62 13 122/44 (70) 100 11/11/18 04:33 66 16 30 11/11/18 04:30 66 16 126/49 (74) 100 11/11/18 04:00 Mechanical Ventilator 11/11/18 04:00 98.0 67 15 122/50 (74) 100 11/11/18 04:00 65 11/11/18 04:00 28 11/11/18 03:30 70 16 114/48 (70) 100 11/11/18 03:23 68 16 30 11/11/18 03:00 57 7 115/43 (67) 100 11/11/18 02:30 65 11 107/42 (63) 100 11/11/18 02:00 69 8 111/42 (65) 99 11/11/18 01:30 70 3 117/42 (67) 99 11/11/18 01:06 70 19 30 11/11/18 01:00 66 15 124/48 (73) 99 11/11/18 00:30 61 18 134/58 (83) 100 11/11/18 00:15 56 13 142/54 (83) 100 11/11/18 00:00 Mechanical Ventilator 11/11/18 00:00 98.1 59 12 155/65 (95) 100 11/10/18 23:00 57 17 138/54 (82) 100 11/10/18 22:45 62 13 106/45 (65) 100 11/10/18 22:30 65 14 30 11/10/18 22:30 64 14 100 11/10/18 22:30 68 12 105/44 (64) 100 11/10/18 22:21 63 14 100 Mechanical Ventilator 28 11/10/18 22:15 68 12 112/41 (64) 100 11/10/18 22:11 89 15 100 Mechanical Ventilator 28 11/10/18 22:00 68 12 124/46 (72) 100 11/10/18 22:00 119/42 11/10/18 21:31 59 16 30 11/10/18 21:30 78 21 152/59 (90) 100 11/10/18 21:00 114/45 11/10/18 21:00 63 13 116/45 (68) 100 11/10/18 20:30 66 13 126/46 (72) 100 11/10/18 20:00 123/56 11/10/18 20:00 98.6 66 22 120/47 (71) 100 11/10/18 20:00 Mechanical Ventilator 11/10/18 20:00 66 11/10/18 20:00 28 11/10/18 19:01 62 20 30 11/10/18 19:00 143/52 11/10/18 19:00 67 21 124/45 (71) 100 11/10/18 18:30 67 20 119/47 (71) 100 11/10/18 18:00 72 23 130/49 (76) 100 11/10/18 18:00 125/42 11/10/18 17:30 68 23 121/50 (73) 100 11/10/18 17:00 65 18 121/50 (73) 100 11/10/18 17:00 132/49 11/10/18 17:00 75 28 30 11/10/18 16:00 28 11/10/18 16:00 124/48 11/10/18 16:00 65 11/10/18 16:00 Mechanical Ventilator 11/10/18 16:00 99.1 64 22 127/47 (73) 100 11/10/18 15:24 63 18 30 11/10/18 15:00 131/51 11/10/18 15:00 59 26 121/46 (71) 100 11/10/18 14:00 60 20 119/46 (70) 100 11/10/18 14:00 133/54 11/10/18 13:42 109/45 11/10/18 13:16 66 15 30 11/10/18 13:00 110/47 11/10/18 13:00 67 12 118/46 (70) 100 11/10/18 12:00 60 11/10/18 12:00 116/51 11/10/18 12:00 Mechanical Ventilator 11/10/18 12:00 28 11/10/18 11:45 98.6 67 7 103/44 (63) 100 11/10/18 11:30 63 18 107/47 (67) 100 11/10/18 11:30 103/44 11/10/18 11:15 59 17 96/40 (58) 100 11/10/18 11:00 96/40 11/10/18 11:00 61 18 114/52 (72) 100 11/10/18 10:45 61 13 113/52 (72) 100 11/10/18 10:45 114/52 11/10/18 10:38 62 20 100 Mechanical Ventilator 28 11/10/18 10:37 63 21 30 11/10/18 10:30 113/52 11/10/18 10:30 64 17 112/50 (70) 100 11/10/18 10:21 67 11 96/48 (64) 100 11/10/18 10:15 96/48 11/10/18 10:15 64 19 79/36 (50) 100 11/10/18 10:00 64 18 80/36 (51) 100 11/10/18 10:00 79/36 11/10/18 09:45 64 16 80/35 (50) 100 11/10/18 09:30 64 8 82/35 (51) 100 Status: awake Condition: critical HEENT: atraumatic Neck: full ROM Lungs: rales Heart: HR/BP stable Abdomen: soft, active bowel sounds, feeding tube Decubiti: location Critical Care - Subjective ROS Limited/Unobtainable: Yes Condition: critical EKG Rhythm: Sinus Rhythm FI02: 28 Vent Support Breath Rate: 14 Vent Support Mode: AC Vent Tidal Volume: 500 Sputum Amount: Small PEEP: 5.0 PIP: 32 I&O: Intake and Output 11/10/18 11/11/18 19:00 07:00 Intake Total 764.6870 ml 1066.25 ml Output Total 1060 ml 880 ml Balance -295.3130 ml 186.25 ml Free Water 55 ml 200 ml IV Total 189.6870 ml 221.25 ml Tube Feeding 520 ml 585 ml Other 60 ml Output Urine Total 1060 ml 880 ml Other 0 ml 0 ml # Bowel Movements 1 2 Labs: Laboratory Tests Test 11/11/18 05:19 White Blood Count 5.4 K/UL (4.8-10.8) Red Blood Count 4.31 M/UL (4.70-6.10) L Hemoglobin 12.6 G/DL (14.2-18.0) L Hematocrit 39.6 % (42.0-52.0) L Mean Corpuscular Volume 92 FL (80-99) Mean Corpuscular Hemoglobin 29.2 PG (27.0-31.0) Mean Corpuscular Hemoglobin Concent 31.8 G/DL (32.0-36.0) L Red Cell Distribution Width 18.9 % (11.6-14.8) H Platelet Count 230 K/UL (150-450) Mean Platelet Volume 6.4 FL (6.5-10.1) L Neutrophils (%) (Auto) 59.9 % (45.0-75.0) Lymphocytes (%) (Auto) 28.7 % (20.0-45.0) Monocytes (%) (Auto) 7.7 % (1.0-10.0) Eosinophils (%) (Auto) 2.9 % (0.0-3.0) Basophils (%) (Auto) 0.9 % (0.0-2.0) Sodium Level 141 MMOL/L (136-145) Potassium Level 3.7 MMOL/L (3.5-5.1) Chloride Level 107 MMOL/L (98-107) Carbon Dioxide Level 29 MMOL/L (21-32) Anion Gap 6 mmol/L (5-15) Blood Urea Nitrogen 17 mg/dL (7-18) Creatinine 0.5 MG/DL (0.55-1.30) L Estimat Glomerular Filtration Rate > 60 mL/min (>60) Glucose Level 127 MG/DL (74-106) H Calcium Level 8.6 MG/DL (8.5-10.1) Phosphorus Level 2.9 MG/DL (2.5-4.9) Magnesium Level 1.7 MG/DL (1.8-2.4) L Total Bilirubin 0.9 MG/DL (0.2-1.0) Aspartate Amino Transf (AST/SGOT) 47 U/L (15-37) H Alanine Aminotransferase (ALT/SGPT) 57 U/L (12-78) Alkaline Phosphatase 452 U/L (46-116) H Total Protein 6.7 G/DL (6.4-8.2) Albumin 2.4 G/DL (3.4-5.0) L Globulin 4.3 g/dL Albumin/Globulin Ratio 0.6 (1.0-2.7) L Mellissa Garcia MD Nov 11, 2018 09:30
--- NOTE | 2018-11-11 09:36 | NUR ---
NURSE NOTES: PATIENT COULDN'T TOLERATE WEANING. DR DIAS MADE AWARE. PATIENT DENIES ANY PAIN OF THE MOMENT. RESUMED FEEDINGS. TOLERATING VSAME VENT SETTINGS. NO SIGNS OF DISTRESS OF THE MOMENT. WILL CONTINUE TO MONITOR.
[2018-11-11] MEDS: Colistin for inhalation INH SCH (09:52)
--- NOTE | 2018-11-11 10:06 | NUR ---
DISCHARGE PLANNING: NOTE PATIENT TO BE DISCHARGED TO [place] [id number] [facility] [address] T: [phone]>> CALL FOR REPORT [facility] ETA 1200 VM LEFT FOR SISTER IN LAW [facility] TRANSFER FORM PROVIDED
[2018-11-11] MEDS: levETIRAcetam 500mg/NS100ml 100 ML IVPB SCH (10:16)
--- NOTE | 2018-11-11 10:21 | Nephrology Progress Note ---
Assessment/Plan Problem List: (1) Hypokalemia (2) Malfunction of gastrostomy tube (3) Malfunction of jejunostomy tube (4) Seizures Assessment Sever hypokalemia Low mag other conditions; 1. JG tube malfunction and leaks. 2. Respiratory failure. 3. Seizure disorder. 4. Chronic obstructive pulmonary disease. 5. Gastroesophageal reflux disease. 6. Neurogenic bladder. 7. Hypothyroidism. 8. Quadriplegia. 9. Tracheostomy in situ. 10.Thrombocytopenia. Plan BP support- remains on low dose pressor Vigorous K supplement IV Phos and Mag supplement as needed waiting for GT functionality ! ( Per GI) Monitor lytes and renal parameters per orders Subjective ROS Limited/Unobtainable: Yes Objective Objective Last 24 Hour Vital Signs Date Time Temp Pulse Resp B/P (MAP) Pulse Ox O2 Delivery O2 Flow Rate FiO2 11/11/18 10:02 68 14 100 Mechanical Ventilator 28 11/11/18 10:00 73 14 106/41 (62) 100 11/11/18 09:52 69 16 100 Mechanical Ventilator 28 11/11/18 09:25 28 11/11/18 09:00 60 14 117/49 (71) 100 11/11/18 08:55 63 17 28 11/11/18 08:00 Mechanical Ventilator 11/11/18 08:00 55 11/11/18 08:00 97.9 55 14 102/48 (66) 100 11/11/18 07:00 60 14 124/56 (78) 100 11/11/18 06:58 66 14 28 11/11/18 06:30 57 6 111/56 (74) 100 11/11/18 06:00 60 15 126/46 (72) 100 11/11/18 05:30 59 12 109/47 (67) 100 11/11/18 05:00 62 13 122/44 (70) 100 11/11/18 04:33 66 16 30 11/11/18 04:30 66 16 126/49 (74) 100 11/11/18 04:00 Mechanical Ventilator 11/11/18 04:00 98.0 67 15 122/50 (74) 100 11/11/18 04:00 65 11/11/18 04:00 28 11/11/18 03:30 70 16 114/48 (70) 100 11/11/18 03:23 68 16 30 11/11/18 03:00 57 7 115/43 (67) 100 11/11/18 02:30 65 11 107/42 (63) 100 11/11/18 02:00 69 8 111/42 (65) 99 11/11/18 01:30 70 3 117/42 (67) 99 11/11/18 01:06 70 19 30 11/11/18 01:00 66 15 124/48 (73) 99 11/11/18 00:30 61 18 134/58 (83) 100 11/11/18 00:15 56 13 142/54 (83) 100 11/11/18 00:00 Mechanical Ventilator 11/11/18 00:00 98.1 59 12 155/65 (95) 100 11/10/18 23:00 57 17 138/54 (82) 100 11/10/18 22:45 62 13 106/45 (65) 100 11/10/18 22:30 65 14 30 11/10/18 22:30 64 14 100 11/10/18 22:30 68 12 105/44 (64) 100 11/10/18 22:21 63 14 100 Mechanical Ventilator 28 11/10/18 22:15 68 12 112/41 (64) 100 11/10/18 22:11 89 15 100 Mechanical Ventilator 28 11/10/18 22:00 68 12 124/46 (72) 100 11/10/18 22:00 119/42 11/10/18 21:31 59 16 30 11/10/18 21:30 78 21 152/59 (90) 100 11/10/18 21:00 114/45 11/10/18 21:00 63 13 116/45 (68) 100 11/10/18 20:30 66 13 126/46 (72) 100 11/10/18 20:00 123/56 11/10/18 20:00 98.6 66 22 120/47 (71) 100 11/10/18 20:00 Mechanical Ventilator 11/10/18 20:00 66 11/10/18 20:00 28 11/10/18 19:01 62 20 30 11/10/18 19:00 143/52 11/10/18 19:00 67 21 124/45 (71) 100 11/10/18 18:30 67 20 119/47 (71) 100 11/10/18 18:00 72 23 130/49 (76) 100 11/10/18 18:00 125/42 11/10/18 17:30 68 23 121/50 (73) 100 11/10/18 17:00 65 18 121/50 (73) 100 11/10/18 17:00 132/49 11/10/18 17:00 75 28 30 11/10/18 16:00 28 11/10/18 16:00 124/48 11/10/18 16:00 65 11/10/18 16:00 Mechanical Ventilator 11/10/18 16:00 99.1 64 22 127/47 (73) 100 11/10/18 15:24 63 18 30 11/10/18 15:00 131/51 11/10/18 15:00 59 26 121/46 (71) 100 11/10/18 14:00 60 20 119/46 (70) 100 11/10/18 14:00 133/54 11/10/18 13:42 109/45 11/10/18 13:16 66 15 30 11/10/18 13:00 110/47 11/10/18 13:00 67 12 118/46 (70) 100 11/10/18 12:00 60 11/10/18 12:00 116/51 11/10/18 12:00 Mechanical Ventilator 11/10/18 12:00 28 11/10/18 11:45 98.6 67 7 103/44 (63) 100 11/10/18 11:30 63 18 107/47 (67) 100 11/10/18 11:30 103/44 11/10/18 11:15 59 17 96/40 (58) 100 11/10/18 11:00 96/40 11/10/18 11:00 61 18 114/52 (72) 100 11/10/18 10:45 61 13 113/52 (72) 100 11/10/18 10:45 114/52 11/10/18 10:38 62 20 100 Mechanical Ventilator 28 11/10/18 10:37 63 21 30 11/10/18 10:30 113/52 11/10/18 10:30 64 17 112/50 (70) 100 11/10/18 10:21 67 11 96/48 (64) 100 Intake and Output 11/10/18 11/11/18 19:00 07:00 Intake Total 764.6870 ml 1066.25 ml Output Total 1060 ml 880 ml Balance -295.3130 ml 186.25 ml Free Water 55 ml 200 ml IV Total 189.6870 ml 221.25 ml Tube Feeding 520 ml 585 ml Other 60 ml Output Urine Total 1060 ml 880 ml Other 0 ml 0 ml # Bowel Movements 1 2 Laboratory Tests 11/11/18 05:19: White Blood Count 5.4, Red Blood Count 4.31L, Hemoglobin 12.6L, Hematocrit 39.6L , Mean Corpuscular Volume 92, Mean Corpuscular Hemoglobin 29.2, Mean Corpuscular Hemoglobin Concent 31.8L, Red Cell Distribution Width 18.9H, Platelet Count 230, Mean Platelet Volume 6.4L, Neutrophils (%) (Auto) 59.9, Lymphocytes (%) (Auto) 28.7, Monocytes (%) (Auto) 7.7, Eosinophils (%) (Auto) 2.9, Basophils (%) (Auto) 0.9, Sodium Level 141, Potassium Level 3.7, Chloride Level 107, Carbon Dioxide Level 29, Anion Gap 6, Blood Urea Nitrogen 17, Creatinine 0.5L, Estimat Glomerular Filtration Rate > 60, Glucose Level 127H, Calcium Level 8.6, Phosphorus Level 2.9, Magnesium Level 1.7L, Total Bilirubin 0.9, Aspartate Amino Transf (AST/SGOT) 47H, Alanine Aminotransferase (ALT/SGPT) 57, Alkaline Phosphatase 452H, Total Protein 6.7, Albumin 2.4L, Globulin 4.3, Albumin/Globulin Ratio 0.6L Height (Feet): 5 Height (Inches): 4.00 Weight (Pounds): 210 General Appearance: no apparent distress EENT: other - trach Cardiovascular: normal rate Abdomen: soft Sudhakar Silverman MD Nov 11, 2018 10:21
--- NOTE | 2018-11-11 10:28 | GI Progress Note ---
Assessment/Plan Problems: (1) Malfunction of jejunostomy tube ICD Codes: K94.13 - Enterostomy malfunction SNOMED: 189829912, 624021143 (2) Hypokalemia ICD Codes: E87.6 - Hypokalemia SNOMED: 04905670 Status: stable Status Narrative Discussed with Dr. Lehman. Assessment/Plan CT AP reviewed Thickening of the underdistended urinary bladder is concerning for cystitis. Consider correlation with urinalysis. Moderate bilateral hydroureteronephrosis. Moderate stool in the rectosigmoid colon is suggestive of constipation. Morphologic features of cirrhosis. Cholelithiasis. s/p EGD with GT replacement GTFs per RD GT site care BID/prn Monitor H&H, PRN transfusions turn q2 hours PPI Electrolyte correction bowel regimen follow labs The patient was seen and examined at bedside and all new and available data was reviewed in the patients chart. I agree with the above findings, impression and plan. (Patient seen earlier today. Signature stamp does not reflect patient encounter time.). - Kvng Lehman MD Subjective Subjective limited Objective Last 24 Hour Vital Signs Date Time Temp Pulse Resp B/P (MAP) Pulse Ox O2 Delivery O2 Flow Rate FiO2 11/11/18 10:02 68 14 100 Mechanical Ventilator 28 11/11/18 10:00 73 14 106/41 (62) 100 11/11/18 09:52 69 16 100 Mechanical Ventilator 28 11/11/18 09:25 28 11/11/18 09:00 60 14 117/49 (71) 100 11/11/18 08:55 63 17 28 11/11/18 08:00 Mechanical Ventilator 11/11/18 08:00 55 11/11/18 08:00 97.9 55 14 102/48 (66) 100 11/11/18 07:00 60 14 124/56 (78) 100 11/11/18 06:58 66 14 28 11/11/18 06:30 57 6 111/56 (74) 100 11/11/18 06:00 60 15 126/46 (72) 100 11/11/18 05:30 59 12 109/47 (67) 100 11/11/18 05:00 62 13 122/44 (70) 100 11/11/18 04:33 66 16 30 11/11/18 04:30 66 16 126/49 (74) 100 11/11/18 04:00 Mechanical Ventilator 11/11/18 04:00 98.0 67 15 122/50 (74) 100 11/11/18 04:00 65 11/11/18 04:00 28 11/11/18 03:30 70 16 114/48 (70) 100 11/11/18 03:23 68 16 30 11/11/18 03:00 57 7 115/43 (67) 100 11/11/18 02:30 65 11 107/42 (63) 100 11/11/18 02:00 69 8 111/42 (65) 99 11/11/18 01:30 70 3 117/42 (67) 99 11/11/18 01:06 70 19 30 11/11/18 01:00 66 15 124/48 (73) 99 11/11/18 00:30 61 18 134/58 (83) 100 11/11/18 00:15 56 13 142/54 (83) 100 11/11/18 00:00 Mechanical Ventilator 11/11/18 00:00 98.1 59 12 155/65 (95) 100 11/10/18 23:00 57 17 138/54 (82) 100 11/10/18 22:45 62 13 106/45 (65) 100 11/10/18 22:30 65 14 30 11/10/18 22:30 64 14 100 11/10/18 22:30 68 12 105/44 (64) 100 11/10/18 22:21 63 14 100 Mechanical Ventilator 28 11/10/18 22:15 68 12 112/41 (64) 100 11/10/18 22:11 89 15 100 Mechanical Ventilator 28 11/10/18 22:00 68 12 124/46 (72) 100 11/10/18 22:00 119/42 11/10/18 21:31 59 16 30 11/10/18 21:30 78 21 152/59 (90) 100 11/10/18 21:00 114/45 11/10/18 21:00 63 13 116/45 (68) 100 11/10/18 20:30 66 13 126/46 (72) 100 11/10/18 20:00 123/56 11/10/18 20:00 98.6 66 22 120/47 (71) 100 11/10/18 20:00 Mechanical Ventilator 11/10/18 20:00 66 8/20/19 20:00 28 11/10/18 19:01 62 20 30 11/10/18 19:00 143/52 11/10/18 19:00 67 21 124/45 (71) 100 11/10/18 18:30 67 20 119/47 (71) 100 11/10/18 18:00 72 23 130/49 (76) 100 11/10/18 18:00 125/42 11/10/18 17:30 68 23 121/50 (73) 100 11/10/18 17:00 65 18 121/50 (73) 100 11/10/18 17:00 132/49 11/10/18 17:00 75 28 30 11/10/18 16:00 28 11/10/18 16:00 124/48 11/10/18 16:00 65 11/10/18 16:00 Mechanical Ventilator 11/10/18 16:00 99.1 64 22 127/47 (73) 100 11/10/18 15:24 63 18 30 11/10/18 15:00 131/51 11/10/18 15:00 59 26 121/46 (71) 100 11/10/18 14:00 60 20 119/46 (70) 100 11/10/18 14:00 133/54 11/10/18 13:42 109/45 11/10/18 13:16 66 15 30 11/10/18 13:00 110/47 11/10/18 13:00 67 12 118/46 (70) 100 11/10/18 12:00 60 11/10/18 12:00 116/51 11/10/18 12:00 Mechanical Ventilator 11/10/18 12:00 28 11/10/18 11:45 98.6 67 7 103/44 (63) 100 11/10/18 11:30 63 18 107/47 (67) 100 11/10/18 11:30 103/44 11/10/18 11:15 59 17 96/40 (58) 100 11/10/18 11:00 96/40 11/10/18 11:00 61 18 114/52 (72) 100 11/10/18 10:45 61 13 113/52 (72) 100 11/10/18 10:45 114/52 11/10/18 10:38 62 20 100 Mechanical Ventilator 28 11/10/18 10:37 63 21 30 11/10/18 10:30 113/52 11/10/18 10:30 64 17 112/50 (70) 100 Intake and Output 11/10/18 11/11/18 19:00 07:00 Intake Total 764.6870 ml 1066.25 ml Output Total 1060 ml 880 ml Balance -295.3130 ml 186.25 ml Free Water 55 ml 200 ml IV Total 189.6870 ml 221.25 ml Tube Feeding 520 ml 585 ml Other 60 ml Output Urine Total 1060 ml 880 ml Other 0 ml 0 ml # Bowel Movements 1 2 Laboratory Tests Test 11/11/18 05:19 White Blood Count 5.4 K/UL (4.8-10.8) Red Blood Count 4.31 M/UL (4.70-6.10) L Hemoglobin 12.6 G/DL (14.2-18.0) L Hematocrit 39.6 % (42.0-52.0) L Mean Corpuscular Volume 92 FL (80-99) Mean Corpuscular Hemoglobin 29.2 PG (27.0-31.0) Mean Corpuscular Hemoglobin Concent 31.8 G/DL (32.0-36.0) L Red Cell Distribution Width 18.9 % (11.6-14.8) H Platelet Count 230 K/UL (150-450) Mean Platelet Volume 6.4 FL (6.5-10.1) L Neutrophils (%) (Auto) 59.9 % (45.0-75.0) Lymphocytes (%) (Auto) 28.7 % (20.0-45.0) Monocytes (%) (Auto) 7.7 % (1.0-10.0) Eosinophils (%) (Auto) 2.9 % (0.0-3.0) Basophils (%) (Auto) 0.9 % (0.0-2.0) Sodium Level 141 MMOL/L (136-145) Potassium Level 3.7 MMOL/L (3.5-5.1) Chloride Level 107 MMOL/L (98-107) Carbon Dioxide Level 29 MMOL/L (21-32) Anion Gap 6 mmol/L (5-15) Blood Urea Nitrogen 17 mg/dL (7-18) Creatinine 0.5 MG/DL (0.55-1.30) L Estimat Glomerular Filtration Rate > 60 mL/min (>60) Glucose Level 127 MG/DL (74-106) H Calcium Level 8.6 MG/DL (8.5-10.1) Phosphorus Level 2.9 MG/DL (2.5-4.9) Magnesium Level 1.7 MG/DL (1.8-2.4) L Total Bilirubin 0.9 MG/DL (0.2-1.0) Aspartate Amino Transf (AST/SGOT) 47 U/L (15-37) H Alanine Aminotransferase (ALT/SGPT) 57 U/L (12-78) Alkaline Phosphatase 452 U/L (46-116) H Total Protein 6.7 G/DL (6.4-8.2) Albumin 2.4 G/DL (3.4-5.0) L Globulin 4.3 g/dL Albumin/Globulin Ratio 0.6 (1.0-2.7) L Height (Feet): 5 Height (Inches): 4.00 Weight (Pounds): 210 General Appearance: no apparent distress Cardiovascular: normal rate Respiratory/Chest: normal breath sounds, no respiratory distress, other - trach Abdominal Exam: normal bowel sounds, non tender, soft, distended, GT site Extremities: non-tender Daisy Bernstein NP Nov 11, 2018 10:28
--- NOTE | 2018-11-11 10:37 | NUR ---
NURSE NOTES: PATIENT IS FOR DISCHARGE TODAY. PATIENT KEPT CLEAN AND DRY. WILL CONTINUE TO MONITOR.
--- NOTE | 2018-11-11 10:50 | NUR ---
NURSE NOTES: SPOKE WITH DR DIAS RE BP AND HR. ORDERED TO GIVE IV FLUID BEFORE DISCHARGE. WILL CONTINUE TO MONITOR.
--- NOTE | 2018-11-11 11:01 | NUR ---
NURSE NOTES: CALLED AND SPOKE WITH OPAL WHITMORE [employer] [facility], GAVE REPORT. ALL QUESTIONS ANSWERED.
--- NOTE | 2018-11-11 11:03 | NUR ---
NURSE NOTES: SPOKE WITH WILMAN FROM [facility] TO RESCHEDULE PICK-UP TIME AROUND 1400.
--- NOTE | 2018-11-11 12:08 | Internal Med Progress Note ---
Subjective Date of Service: Nov 11, 2018 Physician Name Hernandez,Isidro Attending Physician Bruno Ko MD Current Medications Medications (Trade) Dose Ordered Sig/Vicenta Route PRN Reason Start Time Stop Time Status Last Admin Dose Admin Acetaminophen (Tylenol) 650 mg Q4H PRN ORAL fever 11/03/18 12:30 11/27/18 12:29 11/05/18 19:18 Acetaminophen (Tylenol) 650 mg Q4H PRN RECTAL Mild Pain (Pain Scale 1-3) 11/03/18 14:45 11/28/18 10:44 Chlorhexidine Gluconate (Caitlyn-Hex 2%) 1 applic DAILY@2000 TOPIC 11/03/18 20:00 11/28/18 19:59 11/10/18 20:42 Colistimethate Sodium (Colistin *inhalation use only*) 150 mg Q12HR@10,22 INH 11/06/18 22:00 11/13/18 21:59 11/11/18 09:52 Dextrose (Dextrose 50%) 25 ml Q30M PRN IV Hypoglycemia 11/03/18 12:30 11/27/18 14:29 Dextrose (Dextrose 50%) 50 ml Q30M PRN IV Hypoglycemia 11/03/18 12:30 11/27/18 14:29 Docusate Sodium (Colace) 100 mg BID GT 11/03/18 18:00 12/03/18 17:59 11/10/18 09:11 Gabapentin (Neurontin) 600 mg Q6HR GT 11/03/18 12:00 11/27/18 17:59 11/11/18 11:18 Heparin Sodium (Porcine) (Heparin 5000 units/ml) 5,000 units EVERY 12 HOURS SUBQ 11/03/18 21:00 11/27/18 20:59 11/11/18 09:26 Levetiracetam 100 ml @ 400 mls/hr Q12HR IVPB 11/03/18 21:00 11/30/18 20:59 11/11/18 10:16 Magnesium Sulfate 100 ml @ 100 mls/hr Q1H IVPB 11/11/18 11:00 11/11/18 12:59 11/11/18 11:18 Meropenem 1 gm/ Sodium Chloride 55 ml @ 110 mls/hr Q8HR IVPB 11/03/18 14:00 11/13/18 13:59 11/11/18 05:56 Metoclopramide HCl (Reglan) 10 mg Q6H PRN IVP severe nausea 11/03/18 12:11 12/03/18 12:10 Midodrine (Pro-Amatine) 10 mg EVERY 8 HOURS ORAL 11/04/18 14:00 12/04/18 13:59 11/10/18 22:54 Mineral Oil (Fleet's Mineral Oil Enema) 133 ml EVERY OTHER DAY RECTAL 11/04/18 09:00 11/30/18 08:59 Minocycline HCl (Minocin) 100 mg Q12H ORAL 11/07/18 05:00 11/14/18 04:59 11/11/18 05:55 Nitroglycerin (Ntg) 0.4 mg Q5M X 3 DOSES PRN SL Prn Chest Pain 11/03/18 12:12 12/03/18 12:11 Norepinephrine Bitartrate 4 mg/ Dextrose 250 ml @ 0 mls/hr Q24H IV 11/03/18 13:00 12/03/18 12:59 11/10/18 13:42 Pantoprazole (Protonix) 40 mg DAILY IV 11/04/18 09:00 11/28/18 08:59 11/11/18 09:26 Polyethylene Glycol (Miralax) 17 gm BEDTIME GT 11/03/18 21:00 12/03/18 20:59 11/08/18 21:31 Polyethylene Glycol (Miralax) 17 gm HSPRN PRN GT Constipation 11/03/18 12:12 12/03/18 12:11 Sodium Chloride 500 ml @ 999 mls/hr Q31M ONCE IV 11/11/18 12:00 11/11/18 12:30 Zinc Oxide (Zinc Oxide) 1 applic TIDPRN PRN TOPIC around g tube site 11/03/18 13:00 12/03/18 12:59 Allergies: Coded Allergies: SULFAMETHOXAZOLE (Verified Allergy, Unknown, 10/18/17) TRIMETHOPRIM (Verified Allergy, Unknown, 10/18/17) ROS Limited/Unobtainable: Yes Subjective 57 YO M admitted with J-tube malfunction. Now sepsis. Cover for Int Med-Dr Ko. S/P endoscopy 11/02/18. ICU. Intubated and sedated Objective Last Vital Signs Date Time Temp Pulse Resp B/P (MAP) Pulse Ox O2 Delivery O2 Flow Rate FiO2 11/11/18 12:00 97.3 62 14 100/48 (65) 100 11/11/18 12:00 Mechanical Ventilator 11/11/18 12:00 28 11/05/18 13:50 65.0 Laboratory Tests Test 11/11/18 05:19 White Blood Count 5.4 K/UL (4.8-10.8) Red Blood Count 4.31 M/UL (4.70-6.10) L Hemoglobin 12.6 G/DL (14.2-18.0) L Hematocrit 39.6 % (42.0-52.0) L Mean Corpuscular Volume 92 FL (80-99) Mean Corpuscular Hemoglobin 29.2 PG (27.0-31.0) Mean Corpuscular Hemoglobin Concent 31.8 G/DL (32.0-36.0) L Red Cell Distribution Width 18.9 % (11.6-14.8) H Platelet Count 230 K/UL (150-450) Mean Platelet Volume 6.4 FL (6.5-10.1) L Neutrophils (%) (Auto) 59.9 % (45.0-75.0) Lymphocytes (%) (Auto) 28.7 % (20.0-45.0) Monocytes (%) (Auto) 7.7 % (1.0-10.0) Eosinophils (%) (Auto) 2.9 % (0.0-3.0) Basophils (%) (Auto) 0.9 % (0.0-2.0) Sodium Level 141 MMOL/L (136-145) Potassium Level 3.7 MMOL/L (3.5-5.1) Chloride Level 107 MMOL/L (98-107) Carbon Dioxide Level 29 MMOL/L (21-32) Anion Gap 6 mmol/L (5-15) Blood Urea Nitrogen 17 mg/dL (7-18) Creatinine 0.5 MG/DL (0.55-1.30) L Estimat Glomerular Filtration Rate > 60 mL/min (>60) Glucose Level 127 MG/DL (74-106) H Calcium Level 8.6 MG/DL (8.5-10.1) Phosphorus Level 2.9 MG/DL (2.5-4.9) Magnesium Level 1.7 MG/DL (1.8-2.4) L Total Bilirubin 0.9 MG/DL (0.2-1.0) Aspartate Amino Transf (AST/SGOT) 47 U/L (15-37) H Alanine Aminotransferase (ALT/SGPT) 57 U/L (12-78) Alkaline Phosphatase 452 U/L (46-116) H Total Protein 6.7 G/DL (6.4-8.2) Albumin 2.4 G/DL (3.4-5.0) L Globulin 4.3 g/dL Albumin/Globulin Ratio 0.6 (1.0-2.7) L Intake and Output 11/10/18 11/11/18 19:00 07:00 Intake Total 764.6870 ml 1066.25 ml Output Total 1060 ml 880 ml Balance -295.3130 ml 186.25 ml Free Water 55 ml 200 ml IV Total 189.6870 ml 221.25 ml Tube Feeding 520 ml 585 ml Other 60 ml Output Urine Total 1060 ml 880 ml Other 0 ml 0 ml # Bowel Movements 1 2 Objective PHYSICAL EXAMINATION: GENERAL: The patient is a well-developed and well-nourished white male, in no apparent distress. HEENT: Eyes, pupils are equal and responsive to light and accommodation. Extraocular movements are intact. NECK: Supple without lymphadenopathy. CHEST: Lungs are clear to auscultation bilaterally without wheezes or rales. CARDIOVASCULAR: Regular rhythm and rate. S1 and S2 are normal without murmurs, rubs, or gallops. ABDOMEN: Soft, nontender, and nondistended. Positive bowel sounds. No evidence of hepatosplenomegaly. Currently, no rebound or guarding noted. EXTREMITIES: Negative for clubbing, cyanosis, or edema. RECTAL/GENITAL: Not performed. NEUROLOGIC: Cranial nerves II through XII are grossly intact without focal deficits. Motor strength is 5/5 bilaterally. Deep tendon reflexes are 2+ plantar. Assessment/Plan Assessment/Plan ASSESSMENT: This is a 57-year-old male. 1. Gastrostomy tube malfunction. 2. Respiratory failure. 3. Seizure disorder. 4. Chronic obstructive pulmonary disease. 5. Gastroesophageal reflux disease. 6. Neurogenic bladder. 7. Hypothyroidism. 8. Quadriplegia. 9. Tracheostomy in situ. 10. Sepsis=ESBL Proteus mirabilis TREATMENT: 1. J-tube malfunction. A Gastroenterology consultation has been obtained with Dr. Kvng Lehman. scheduled endoscopic replacement of J-tube on October 30, 2018 postponed due to hypokalemia. Reschedule per GI 2. Respiratory failure. A Pulmonary consultation has been obtained with Dr. Mellissa Garcia. Continue DuoNebs as above. 3. Seizure disorder. Continue Keppra and Neurontin as above. 4. Chronic obstructive pulmonary disease. As above, a Pulmonary consultation has been obtained with Dr. Mellissa Garcia. 5. Gastroesophageal reflux disease. Continue famotidine as above. 6. Neurogenic bladder. The patient is status post suprapubic catheter placement. 7. Hypothyroidism. Continue Levoxyl as above. 8. Quadriplegia. 9. Tracheostomy in situ. 10. Hypokalemia. Replace K+ 11. ABX=meropenem and inhaled colistin per ID 12. S/P endoscopy with jejunostomy tube placed 11/02/18 13. Transfer to [facility] Isidro Hernandez MD Nov 11, 2018 12:08
--- NOTE | 2018-11-11 13:24 | NUR ---
NURSE NOTES: PATIENT KEPT CLEAN AND DRY. NOTED ANOTHER LOOSE BM. TOLERATED VENT SETTINGS. WILL CONTINUE TO MONITOR.
--- NOTE | 2018-11-11 13:48 | Surgery Progress Note ---
Surgery Progress Note Subjective Additional Comments no acute events comfortable stable improved overall Objective Last 24 Hour Vital Signs Date Time Temp Pulse Resp B/P (MAP) Pulse Ox O2 Delivery O2 Flow Rate FiO2 11/11/18 13:00 78 21 135/58 (83) 99 11/11/18 12:36 106/44 11/11/18 12:30 65 14 28 11/11/18 12:00 97.3 62 14 100/48 (65) 100 11/11/18 12:00 Mechanical Ventilator 11/11/18 12:00 28 11/11/18 11:26 64 16 28 11/11/18 11:00 63 14 99/39 (59) 100 11/11/18 10:02 68 14 100 Mechanical Ventilator 28 11/11/18 10:00 73 14 106/41 (62) 100 11/11/18 09:52 69 16 100 Mechanical Ventilator 28 11/11/18 09:25 28 11/11/18 09:00 60 14 117/49 (71) 100 11/11/18 08:55 63 17 28 11/11/18 08:00 Mechanical Ventilator 11/11/18 08:00 28 11/11/18 08:00 55 11/11/18 08:00 97.9 55 14 102/48 (66) 100 11/11/18 07:00 60 14 124/56 (78) 100 11/11/18 06:58 66 14 28 11/11/18 06:30 57 6 111/56 (74) 100 11/11/18 06:00 60 15 126/46 (72) 100 11/11/18 05:30 59 12 109/47 (67) 100 11/11/18 05:00 62 13 122/44 (70) 100 11/11/18 04:33 66 16 30 11/11/18 04:30 66 16 126/49 (74) 100 11/11/18 04:00 Mechanical Ventilator 11/11/18 04:00 98.0 67 15 122/50 (74) 100 11/11/18 04:00 65 11/11/18 04:00 28 11/11/18 03:30 70 16 114/48 (70) 100 11/11/18 03:23 68 16 30 11/11/18 03:00 57 7 115/43 (67) 100 11/11/18 02:30 65 11 107/42 (63) 100 8/21/19 02:00 69 8 111/42 (65) 99 11/11/18 01:30 70 3 117/42 (67) 99 11/11/18 01:06 70 19 30 11/11/18 01:00 66 15 124/48 (73) 99 11/11/18 00:30 61 18 134/58 (83) 100 11/11/18 00:15 56 13 142/54 (83) 100 11/11/18 00:00 Mechanical Ventilator 11/11/18 00:00 98.1 59 12 155/65 (95) 100 11/10/18 23:00 57 17 138/54 (82) 100 11/10/18 22:45 62 13 106/45 (65) 100 11/10/18 22:30 65 14 30 11/10/18 22:30 64 14 100 11/10/18 22:30 68 12 105/44 (64) 100 11/10/18 22:21 63 14 100 Mechanical Ventilator 28 11/10/18 22:15 68 12 112/41 (64) 100 11/10/18 22:11 89 15 100 Mechanical Ventilator 28 11/10/18 22:00 68 12 124/46 (72) 100 11/10/18 22:00 119/42 11/10/18 21:31 59 16 30 11/10/18 21:30 78 21 152/59 (90) 100 11/10/18 21:00 114/45 11/10/18 21:00 63 13 116/45 (68) 100 11/10/18 20:30 66 13 126/46 (72) 100 11/10/18 20:00 123/56 11/10/18 20:00 98.6 66 22 120/47 (71) 100 11/10/18 20:00 Mechanical Ventilator 11/10/18 20:00 66 11/10/18 20:00 28 11/10/18 19:01 62 20 30 11/10/18 19:00 143/52 11/10/18 19:00 67 21 124/45 (71) 100 11/10/18 18:30 67 20 119/47 (71) 100 11/10/18 18:00 72 23 130/49 (76) 100 11/10/18 18:00 125/42 11/10/18 17:30 68 23 121/50 (73) 100 11/10/18 17:00 65 18 121/50 (73) 100 11/10/18 17:00 132/49 11/10/18 17:00 75 28 30 11/10/18 16:00 28 11/10/18 16:00 124/48 11/10/18 16:00 65 11/10/18 16:00 Mechanical Ventilator 11/10/18 16:00 99.1 64 22 127/47 (73) 100 11/10/18 15:24 63 18 30 11/10/18 15:00 131/51 11/10/18 15:00 59 26 121/46 (71) 100 11/10/18 14:00 60 20 119/46 (70) 100 11/10/18 14:00 133/54 I&O Intake and Output 11/10/18 11/11/18 19:00 07:00 Intake Total 764.6870 ml 1066.25 ml Output Total 1060 ml 880 ml Balance -295.3130 ml 186.25 ml Free Water 55 ml 200 ml IV Total 189.6870 ml 221.25 ml Tube Feeding 520 ml 585 ml Other 60 ml Output Urine Total 1060 ml 880 ml Other 0 ml 0 ml # Bowel Movements 1 2 Dressing: dry Wound: clean Drains: other Cardiovascular: RSR Abdomen: present bowel sounds, other Extremities: other Laboratory Tests Test 11/11/18 05:19 White Blood Count 5.4 K/UL (4.8-10.8) Red Blood Count 4.31 M/UL (4.70-6.10) L Hemoglobin 12.6 G/DL (14.2-18.0) L Hematocrit 39.6 % (42.0-52.0) L Mean Corpuscular Volume 92 FL (80-99) Mean Corpuscular Hemoglobin 29.2 PG (27.0-31.0) Mean Corpuscular Hemoglobin Concent 31.8 G/DL (32.0-36.0) L Red Cell Distribution Width 18.9 % (11.6-14.8) H Platelet Count 230 K/UL (150-450) Mean Platelet Volume 6.4 FL (6.5-10.1) L Neutrophils (%) (Auto) 59.9 % (45.0-75.0) Lymphocytes (%) (Auto) 28.7 % (20.0-45.0) Monocytes (%) (Auto) 7.7 % (1.0-10.0) Eosinophils (%) (Auto) 2.9 % (0.0-3.0) Basophils (%) (Auto) 0.9 % (0.0-2.0) Sodium Level 141 MMOL/L (136-145) Potassium Level 3.7 MMOL/L (3.5-5.1) Chloride Level 107 MMOL/L (98-107) Carbon Dioxide Level 29 MMOL/L (21-32) Anion Gap 6 mmol/L (5-15) Blood Urea Nitrogen 17 mg/dL (7-18) Creatinine 0.5 MG/DL (0.55-1.30) L Estimat Glomerular Filtration Rate > 60 mL/min (>60) Glucose Level 127 MG/DL (74-106) H Calcium Level 8.6 MG/DL (8.5-10.1) Phosphorus Level 2.9 MG/DL (2.5-4.9) Magnesium Level 1.7 MG/DL (1.8-2.4) L Total Bilirubin 0.9 MG/DL (0.2-1.0) Aspartate Amino Transf (AST/SGOT) 47 U/L (15-37) H Alanine Aminotransferase (ALT/SGPT) 57 U/L (12-78) Alkaline Phosphatase 452 U/L (46-116) H Total Protein 6.7 G/DL (6.4-8.2) Albumin 2.4 G/DL (3.4-5.0) L Globulin 4.3 g/dL Albumin/Globulin Ratio 0.6 (1.0-2.7) L Plan Problems: (1) Malfunction of gastrostomy tube Assessment & Plan: This is a 57-year-old male with malfunctioning G-tube in. G -tube cellulitis. I taken care of this patient for a long period of time and trying to help resolve this. This is actually the best it has looked and prior was significantly worse. I anticipated he would stay on TPN while the G-tube site completely closed with plans for a new G-tube placement in the future in a completely different site. Unfortunately seems that a G-tube is been placed into his prior closing site now is developing cellulitis around it again. For now given that its improved and not leaking significantly potentially cellulitis can improve and will continue with localized wound care. Apply zinc oxide around the tube and continue with tube use. Nutritional optimization is keys here. We will follow with recommendations. Thank you for allowing me to participate in patient's care Still leaking around G-tube site but erythema and skin changes much improved. Still has scaling skin with some erythema noted but significant improved as prior. G-tube in stable positioning. Dressings intact. Apply zinc oxide around G-tube site as needed with dressing changes. We will continue to monitor (2) Malfunction of jejunostomy tube (3) Abnormal LFTs Assessment & Plan: Patient with elevated t bili, d bili, alk phos remain elevated CT and US with cholelithiasis improved c/d plannning thank you Robert Gomez Nov 11, 2018 13:48
--- NOTE | 2018-11-11 14:24 | Cardiac Electrophysiology PN ---
Assessment/Plan Assessment/Plan 1. Sinus tachycardia. Off metoprolol in view of hypotension 2. Septic shock off Levophed and on Midodrine and Abc. 3. Dysphagia, status post GJ-tube malfunction. S/P new GJ-tube placement 11/02/18 4. Respiratory failure, tracheostomy in place 5. Seizure disorder. 6. COPD. 7. Gastroesophageal reflux disease. 8. Neurogenic bladder status post suprapubic catheter. 9. Hypothyroidism. 10. Quadriplegia. RACHEAL RN DC today Subjective Subjective In ICU on the vent and off Levophed. DC to [facility] pending today Objective Last 24 Hour Vital Signs Date Time Temp Pulse Resp B/P (MAP) Pulse Ox O2 Delivery O2 Flow Rate FiO2 11/11/18 13:00 78 21 135/58 (83) 99 11/11/18 12:36 106/44 11/11/18 12:30 65 14 28 11/11/18 12:00 97.3 62 14 100/48 (65) 100 11/11/18 12:00 Mechanical Ventilator 11/11/18 12:00 28 11/11/18 11:26 64 16 28 11/11/18 11:00 63 14 99/39 (59) 100 11/11/18 10:02 68 14 100 Mechanical Ventilator 28 11/11/18 10:00 73 14 106/41 (62) 100 11/11/18 09:52 69 16 100 Mechanical Ventilator 28 11/11/18 09:25 28 11/11/18 09:00 60 14 117/49 (71) 100 11/11/18 08:55 63 17 28 11/11/18 08:00 Mechanical Ventilator 11/11/18 08:00 28 11/11/18 08:00 55 11/11/18 08:00 97.9 55 14 102/48 (66) 100 11/11/18 07:00 60 14 124/56 (78) 100 11/11/18 06:58 66 14 28 11/11/18 06:30 57 6 111/56 (74) 100 11/11/18 06:00 60 15 126/46 (72) 100 11/11/18 05:30 59 12 109/47 (67) 100 11/11/18 05:00 62 13 122/44 (70) 100 11/11/18 04:33 66 16 30 11/11/18 04:30 66 16 126/49 (74) 100 11/11/18 04:00 Mechanical Ventilator 11/11/18 04:00 98.0 67 15 122/50 (74) 100 11/11/18 04:00 65 11/11/18 04:00 28 11/11/18 03:30 70 16 114/48 (70) 100 11/11/18 03:23 68 16 30 11/11/18 03:00 57 7 115/43 (67) 100 11/11/18 02:30 65 11 107/42 (63) 100 11/11/18 02:00 69 8 111/42 (65) 99 11/11/18 01:30 70 3 117/42 (67) 99 11/11/18 01:06 70 19 30 11/11/18 01:00 66 15 124/48 (73) 99 11/11/18 00:30 61 18 134/58 (83) 100 11/11/18 00:15 56 13 142/54 (83) 100 11/11/18 00:00 Mechanical Ventilator 11/11/18 00:00 98.1 59 12 155/65 (95) 100 11/10/18 23:00 57 17 138/54 (82) 100 11/10/18 22:45 62 13 106/45 (65) 100 11/10/18 22:30 65 14 30 11/10/18 22:30 64 14 100 11/10/18 22:30 68 12 105/44 (64) 100 11/10/18 22:21 63 14 100 Mechanical Ventilator 28 11/10/18 22:15 68 12 112/41 (64) 100 11/10/18 22:11 89 15 100 Mechanical Ventilator 28 11/10/18 22:00 68 12 124/46 (72) 100 11/10/18 22:00 119/42 11/10/18 21:31 59 16 30 11/10/18 21:30 78 21 152/59 (90) 100 11/10/18 21:00 114/45 11/10/18 21:00 63 13 116/45 (68) 100 11/10/18 20:30 66 13 126/46 (72) 100 11/10/18 20:00 123/56 11/10/18 20:00 98.6 66 22 120/47 (71) 100 11/10/18 20:00 Mechanical Ventilator 11/10/18 20:00 66 11/10/18 20:00 28 11/10/18 19:01 62 20 30 11/10/18 19:00 143/52 11/10/18 19:00 67 21 124/45 (71) 100 11/10/18 18:30 67 20 119/47 (71) 100 11/10/18 18:00 72 23 130/49 (76) 100 11/10/18 18:00 125/42 11/10/18 17:30 68 23 121/50 (73) 100 11/10/18 17:00 65 18 121/50 (73) 100 11/10/18 17:00 132/49 11/10/18 17:00 75 28 30 11/10/18 16:00 28 11/10/18 16:00 124/48 11/10/18 16:00 65 11/10/18 16:00 Mechanical Ventilator 11/10/18 16:00 99.1 64 22 127/47 (73) 100 11/10/18 15:24 63 18 30 11/10/18 15:00 131/51 11/10/18 15:00 59 26 121/46 (71) 100 Intake and Output 11/10/18 11/11/18 19:00 07:00 Intake Total 764.6870 ml 1066.25 ml Output Total 1060 ml 880 ml Balance -295.3130 ml 186.25 ml Free Water 55 ml 200 ml IV Total 189.6870 ml 221.25 ml Tube Feeding 520 ml 585 ml Other 60 ml Output Urine Total 1060 ml 880 ml Other 0 ml 0 ml # Bowel Movements 1 2 Laboratory Tests Test 11/11/18 05:19 White Blood Count 5.4 K/UL (4.8-10.8) Red Blood Count 4.31 M/UL (4.70-6.10) L Hemoglobin 12.6 G/DL (14.2-18.0) L Hematocrit 39.6 % (42.0-52.0) L Mean Corpuscular Volume 92 FL (80-99) Mean Corpuscular Hemoglobin 29.2 PG (27.0-31.0) Mean Corpuscular Hemoglobin Concent 31.8 G/DL (32.0-36.0) L Red Cell Distribution Width 18.9 % (11.6-14.8) H Platelet Count 230 K/UL (150-450) Mean Platelet Volume 6.4 FL (6.5-10.1) L Neutrophils (%) (Auto) 59.9 % (45.0-75.0) Lymphocytes (%) (Auto) 28.7 % (20.0-45.0) Monocytes (%) (Auto) 7.7 % (1.0-10.0) Eosinophils (%) (Auto) 2.9 % (0.0-3.0) Basophils (%) (Auto) 0.9 % (0.0-2.0) Sodium Level 141 MMOL/L (136-145) Potassium Level 3.7 MMOL/L (3.5-5.1) Chloride Level 107 MMOL/L (98-107) Carbon Dioxide Level 29 MMOL/L (21-32) Anion Gap 6 mmol/L (5-15) Blood Urea Nitrogen 17 mg/dL (7-18) Creatinine 0.5 MG/DL (0.55-1.30) L Estimat Glomerular Filtration Rate > 60 mL/min (>60) Glucose Level 127 MG/DL (74-106) H Calcium Level 8.6 MG/DL (8.5-10.1) Phosphorus Level 2.9 MG/DL (2.5-4.9) Magnesium Level 1.7 MG/DL (1.8-2.4) L Total Bilirubin 0.9 MG/DL (0.2-1.0) Aspartate Amino Transf (AST/SGOT) 47 U/L (15-37) H Alanine Aminotransferase (ALT/SGPT) 57 U/L (12-78) Alkaline Phosphatase 452 U/L (46-116) H Total Protein 6.7 G/DL (6.4-8.2) Albumin 2.4 G/DL (3.4-5.0) L Globulin 4.3 g/dL Albumin/Globulin Ratio 0.6 (1.0-2.7) L Objective HEAD AND NECK: No JVD or carotid bruits. Status post tracheostomy. LUNGS: Coarse rhonchi. CARDIOVASCULAR: Shows regular S1 and S2 with no gallop or murmur. ABDOMEN: Soft. The GJ-tube is out. EXTREMITIES: No pitting edema. Rai Dobbs MD Nov 11, 2018 14:24
--- NOTE | 2018-11-11 14:39 | NUR ---
NURSE NOTES: LEFT A MESSAGE TO THE FAMILY THAT PATIENT ID FOR DISCHARGE TO SNF.
[2018-11-11] MEDS ORDERED: NS 275ml ONE (15:29)
[2018-11-11] MEDS ORDERED: NS 500ML ONE (15:29)
[2018-11-11] MEDS ORDERED: Tubing IV Secondary IV ONE (15:29)
--- NOTE | 2018-11-11 15:30 | NUR ---
NURSE NOTES: PATIENT [id number]. REPORT GIVEN TO AZAM EMT.
--- NOTE | 2018-11-11 15:38 | Infectious Diseases Prog Note ---
Assessment/Plan Assessment/Plan Sepsis 2ry to GNR bacteremia (suspect from urinary source given hydronephrosis and chronic suprapubic catheter); now shock, on pressors- r/o PNA, bacteremia, acute cholecysititis or cholangitis 11/08 CXR: Interval resolution of the left lung base opacity. No new consolidation seen. -11/05 Bcx Neg -11/03 u/a (delayed collection) wbc 20-30, nit neg, leuk +3; ucx yeast -10/30 BCx 4/4 ESBL P. mirabilis (S Ertapenem, ZOsyn); 10/31 BCx <10k yeast ( colonzier) -spc x MDR ABC (I Gentamicin; S polymixin B, Colistin, minocycline); colonizer -11/03 CXR: Low lung volumes leading tobronchovascular crowding. Bibasilar subsegmental atelectasis. No new airspace consolidation. -CT abd/p: Thickening of the underdistended urinary bladder is concerning for cystitis. Consider correlation with urinalysis. Moderate bilateral hydroureteronephrosis. Moderate stool in the rectosigmoid colon is suggestive of constipation. Morphologic features of cirrhosis. Cholelithiasis. -CXR: Left hemidiaphragm is elevated but this appears stable. PICC line and tracheostomy noted. Cardiomegaly is stable. Bones are osteopenic. JT dislodgement and leakage w/ surrounding cellulitis -wound cx MDR ABC (I genta); colonizer Elevated LFTs- r/o hepatobiliary disease Fever; recurrent- probable pNA -11/06 CXR: Increasing left basilar atelectasis and hazy parenchymal infiltrate, overt 2 days No leukocytosis paraplegia neurogenic bladder COPD GERD seizure disorder s/p trach dysphagia s/p J tube placement 10/22/18 [facility] resident Plan: -Continue Meropenem #/ for ESBL bacteremia - Continue Minocycline #07/28-10 and INH colistin #07/28-10 for MDR ABC sputum cx given fevers and recent CXR changes -11/09 SP IV Vancomycin #4 -11/03 SP Cefepime #5 -11/02 SP IV Vancomycin #5 -10/29 SP Amikacin #1 and Flagyl #1 -f/u cx -Monitor CBC/CMP, temperatures -trach/JT care -GI, Sx f/u -aspiration precautions Thank you for this consultation. Will continue to follow along with you. Subjective Allergies: Coded Allergies: SULFAMETHOXAZOLE (Verified Allergy, Unknown, 10/18/17) TRIMETHOPRIM (Verified Allergy, Unknown, 10/18/17) Subjective late entry afebrile in no leukocytosis repeat Bcx NTD off pressors discharge planning Objective Vital Signs Last 24 Hour Vital Signs Date Time Temp Pulse Resp B/P (MAP) Pulse Ox O2 Delivery O2 Flow Rate FiO2 11/11/18 15:00 70 16 28 11/11/18 15:00 73 15 128/58 (81) 100 11/11/18 14:00 72 15 119/52 (74) 100 11/11/18 13:00 78 21 135/58 (83) 99 11/11/18 12:36 106/44 11/11/18 12:30 65 14 28 11/11/18 12:00 97.3 62 14 100/48 (65) 100 11/11/18 12:00 Mechanical Ventilator 11/11/18 12:00 63 11/11/18 12:00 28 11/11/18 11:26 64 16 28 11/11/18 11:00 63 14 99/39 (59) 100 11/11/18 10:02 68 14 100 Mechanical Ventilator 28 11/11/18 10:00 73 14 106/41 (62) 100 11/11/18 09:52 69 16 100 Mechanical Ventilator 28 11/11/18 09:25 28 11/11/18 09:00 60 14 117/49 (71) 100 11/11/18 08:55 63 17 28 11/11/18 08:00 Mechanical Ventilator 11/11/18 08:00 28 11/11/18 08:00 55 11/11/18 08:00 97.9 55 14 102/48 (66) 100 11/11/18 07:00 60 14 124/56 (78) 100 11/11/18 06:58 66 14 28 11/11/18 06:30 57 6 111/56 (74) 100 11/11/18 06:00 60 15 126/46 (72) 100 11/11/18 05:30 59 12 109/47 (67) 100 11/11/18 05:00 62 13 122/44 (70) 100 11/11/18 04:33 66 16 30 8/21/19 04:30 66 16 126/49 (74) 100 11/11/18 04:00 Mechanical Ventilator 11/11/18 04:00 98.0 67 15 122/50 (74) 100 11/11/18 04:00 65 11/11/18 04:00 28 11/11/18 03:30 70 16 114/48 (70) 100 11/11/18 03:23 68 16 30 11/11/18 03:00 57 7 115/43 (67) 100 11/11/18 02:30 65 11 107/42 (63) 100 11/11/18 02:00 69 8 111/42 (65) 99 11/11/18 01:30 70 3 117/42 (67) 99 11/11/18 01:06 70 19 30 11/11/18 01:00 66 15 124/48 (73) 99 11/11/18 00:30 61 18 134/58 (83) 100 11/11/18 00:15 56 13 142/54 (83) 100 11/11/18 00:00 Mechanical Ventilator 11/11/18 00:00 98.1 59 12 155/65 (95) 100 11/10/18 23:00 57 17 138/54 (82) 100 11/10/18 22:45 62 13 106/45 (65) 100 11/10/18 22:30 65 14 30 11/10/18 22:30 64 14 100 11/10/18 22:30 68 12 105/44 (64) 100 11/10/18 22:21 63 14 100 Mechanical Ventilator 28 11/10/18 22:15 68 12 112/41 (64) 100 11/10/18 22:11 89 15 100 Mechanical Ventilator 28 11/10/18 22:00 68 12 124/46 (72) 100 11/10/18 22:00 119/42 11/10/18 21:31 59 16 30 11/10/18 21:30 78 21 152/59 (90) 100 11/10/18 21:00 114/45 11/10/18 21:00 63 13 116/45 (68) 100 11/10/18 20:30 66 13 126/46 (72) 100 11/10/18 20:00 123/56 11/10/18 20:00 98.6 66 22 120/47 (71) 100 11/10/18 20:00 Mechanical Ventilator 11/10/18 20:00 66 11/10/18 20:00 28 11/10/18 19:01 62 20 30 11/10/18 19:00 143/52 11/10/18 19:00 67 21 124/45 (71) 100 11/10/18 18:30 67 20 119/47 (71) 100 11/10/18 18:00 72 23 130/49 (76) 100 11/10/18 18:00 125/42 11/10/18 17:30 68 23 121/50 (73) 100 11/10/18 17:00 65 18 121/50 (73) 100 11/10/18 17:00 132/49 11/10/18 17:00 75 28 30 11/10/18 16:00 28 11/10/18 16:00 124/48 11/10/18 16:00 65 11/10/18 16:00 Mechanical Ventilator 11/10/18 16:00 99.1 64 22 127/47 (73) 100 Height (Feet): 5 Height (Inches): 4.00 Weight (Pounds): 210 Objective General Appearance: WD/WN, no apparent distress, alert Cardiovascular: normal rate Respiratory/Chest: normal breath sounds, no respiratory distress Abdominal Exam: normal bowel sounds, non tender, soft, GT site - c/d/i Extremities: non-tender Laboratory Tests Test 11/11/18 05:19 White Blood Count 5.4 K/UL (4.8-10.8) Red Blood Count 4.31 M/UL (4.70-6.10) L Hemoglobin 12.6 G/DL (14.2-18.0) L Hematocrit 39.6 % (42.0-52.0) L Mean Corpuscular Volume 92 FL (80-99) Mean Corpuscular Hemoglobin 29.2 PG (27.0-31.0) Mean Corpuscular Hemoglobin Concent 31.8 G/DL (32.0-36.0) L Red Cell Distribution Width 18.9 % (11.6-14.8) H Platelet Count 230 K/UL (150-450) Mean Platelet Volume 6.4 FL (6.5-10.1) L Neutrophils (%) (Auto) 59.9 % (45.0-75.0) Lymphocytes (%) (Auto) 28.7 % (20.0-45.0) Monocytes (%) (Auto) 7.7 % (1.0-10.0) Eosinophils (%) (Auto) 2.9 % (0.0-3.0) Basophils (%) (Auto) 0.9 % (0.0-2.0) Sodium Level 141 MMOL/L (136-145) Potassium Level 3.7 MMOL/L (3.5-5.1) Chloride Level 107 MMOL/L (98-107) Carbon Dioxide Level 29 MMOL/L (21-32) Anion Gap 6 mmol/L (5-15) Blood Urea Nitrogen 17 mg/dL (7-18) Creatinine 0.5 MG/DL (0.55-1.30) L Estimat Glomerular Filtration Rate > 60 mL/min (>60) Glucose Level 127 MG/DL (74-106) H Calcium Level 8.6 MG/DL (8.5-10.1) Phosphorus Level 2.9 MG/DL (2.5-4.9) Magnesium Level 1.7 MG/DL (1.8-2.4) L Total Bilirubin 0.9 MG/DL (0.2-1.0) Aspartate Amino Transf (AST/SGOT) 47 U/L (15-37) H Alanine Aminotransferase (ALT/SGPT) 57 U/L (12-78) Alkaline Phosphatase 452 U/L (46-116) H Total Protein 6.7 G/DL (6.4-8.2) Albumin 2.4 G/DL (3.4-5.0) L Globulin 4.3 g/dL Albumin/Globulin Ratio 0.6 (1.0-2.7) L Current Medications Medications (Trade) Dose Ordered Sig/Vicenta Route PRN Reason Start Time Stop Time Status Last Admin Dose Admin Acetaminophen (Tylenol) 650 mg Q4H PRN ORAL fever 11/03/18 12:30 11/27/18 12:29 11/05/18 19:18 Acetaminophen (Tylenol) 650 mg Q4H PRN RECTAL Mild Pain (Pain Scale 1-3) 11/03/18 14:45 11/28/18 10:44 Chlorhexidine Gluconate (Caitlyn-Hex 2%) 1 applic DAILY@2000 TOPIC 8/13/19 20:00 11/28/18 19:59 11/10/18 20:42 Colistimethate Sodium (Colistin *inhalation use only*) 150 mg Q12HR@10,22 INH 11/06/18 22:00 11/16/18 23:59 11/11/18 09:52 Dextrose (Dextrose 50%) 25 ml Q30M PRN IV Hypoglycemia 11/03/18 12:30 11/27/18 14:29 Dextrose (Dextrose 50%) 50 ml Q30M PRN IV Hypoglycemia 11/03/18 12:30 11/27/18 14:29 Docusate Sodium (Colace) 100 mg BID GT 11/03/18 18:00 12/03/18 17:59 11/10/18 09:11 Gabapentin (Neurontin) 600 mg Q6HR GT 11/03/18 12:00 11/27/18 17:59 11/11/18 11:18 Heparin Sodium (Porcine) (Heparin 5000 units/ml) 5,000 units EVERY 12 HOURS SUBQ 11/03/18 21:00 11/27/18 20:59 11/11/18 09:26 Levetiracetam 100 ml @ 400 mls/hr Q12HR IVPB 11/03/18 21:00 11/30/18 20:59 11/11/18 10:16 Meropenem 1 gm/ Sodium Chloride 55 ml @ 110 mls/hr Q8HR IVPB 11/03/18 14:00 11/16/18 23:59 11/11/18 05:56 Metoclopramide HCl (Reglan) 10 mg Q6H PRN IVP severe nausea 11/03/18 12:11 12/03/18 12:10 Midodrine (Pro-Amatine) 10 mg EVERY 8 HOURS ORAL 11/04/18 14:00 12/04/18 13:59 11/10/18 22:54 Mineral Oil (Fleet's Mineral Oil Enema) 133 ml EVERY OTHER DAY RECTAL 11/04/18 09:00 11/30/18 08:59 Minocycline HCl (Minocin) 100 mg Q12H ORAL 11/07/18 05:00 11/14/18 04:59 11/11/18 05:55 Nitroglycerin (Ntg) 0.4 mg Q5M X 3 DOSES PRN SL Prn Chest Pain 11/03/18 12:12 12/03/18 12:11 Norepinephrine Bitartrate 4 mg/ Dextrose 250 ml @ 0 mls/hr Q24H IV 11/03/18 13:00 12/03/18 12:59 11/10/18 13:42 Pantoprazole (Protonix) 40 mg DAILY IV 11/04/18 09:00 11/28/18 08:59 11/11/18 09:26 Polyethylene Glycol (Miralax) 17 gm BEDTIME GT 11/03/18 21:00 12/03/18 20:59 11/08/18 21:31 Polyethylene Glycol (Miralax) 17 gm HSPRN PRN GT Constipation 11/03/18 12:12 12/03/18 12:11 Zinc Oxide (Zinc Oxide) 1 applic TIDPRN PRN TOPIC around g tube site 11/03/18 13:00 12/03/18 12:59 Kimi Ramos M.D. Nov 11, 2018 15:38
--- NOTE | 2018-11-11 16:34 | NUR ---
*-* INSURANCE *-* ALL CLINICALS HAVE BEEN FAXED TO: [facility] [employer] [phone] HE IS [employer] ASSIGNED REF#[id number] [employer]ER: JAXON #[phone] FAX#[phone] REVIEWS/CLINICAL
--- NOTE | 2018-11-12 09:38 | Discharge Summary ---
Discharge Summary Discharge Summary _ DATE OF ADMISSION: 10/28/2018 DATE OF DISCHARGE: 11/11/2018 DISCHARGED BY: Dr. Ko REASON FOR ADMISSION: 57 years old male with past medical history of respiratory failure, tracheostomy status, COPD, GERD, dysphagia, G-tube , urinary retention, chronic suprapubic catheter, paraplegia, neurogenic bladder, presented from the correction facility with leaking J-tube for one day. Upon evaluation vital signs were stable. Laboratory work-up revealed no leukocytosis , hemoglobin 13.3 , hematocrit 41.8. Platelet count 71. INR 1.2. Potassium 2.9 . BUN 33 , creatinine 0.5. Glucose 106. Total bilirubin 5.8, direct bilirubin 2.3. AST 42, ALT 47 ,alkaline phosphatase 543. Albumin 2.5. EKG revealed normal sinus rhythm with right bundle branch block , no acute ischemic changes. Urinalysis revealed +2 protein , pyuria , +3 leukocyte esterase. Chest x-ray revealed left basilar atelectasis and right PICC line. Abdominal ultrasound demonstrated cholelithiasis and gallbladder wall thickening , possible acute cholecystitis. Moderate right hydronephrosis without definite nephrolithiasis. Sonographic findings were suggestive for cirrhosis. Mild splenomegaly. Patient admitted for further management, including PEG tube exchange CONSULTANTS: senior python developer Dr. Fernandez pulmonary/critical care Dr. Garcia ID specialist Dr. Hernandez lift supervisor Dr. Reagana[address] Gomez urology [facility] COURSE: Patient admitted to monitored floor. Patient started on IV fluids and empiric antibiotics. Tube feeding was on hold due to leaking J tube. GI consult was requested. Patient subsequently undergone EGD with J tube replacement. Military Pay Technician followed. Tracheostomy care provided. Bronchodilator treatment provided. Patient was followed-up with chest x-ray. Hemodynamic status was closely monitored. Patient required pressor to keep mean arterial blood pressure above 65. Patient was required to be placed on AC mode ventilator. Patient was followed-up with a chest x-ray and ABG. Ventilator settings were titrated. Echocardiogram revealed preserved ejection fraction 55 to 60% with no evidence of wall motion abnormality to the extent visualized. Mild left ventricular hypertrophy. Right ventricular systolic pressure of 10. cardiogram revealed preserved ejection fraction of 55 to 60% with no evidence of wall motion abnormality to the extent visualized. Mild left ventricular hypertrophy. Right ventricular systolic pressure of 10. Patient eventually was able to be weaned from pressors. Hemodynamic status was further closely monitored. Infectious disease specialist followed. Blood culture on 10/30 revealed Proteus mirabilis ESBL ; repeated blood culture on 10/31 were negative. Last blood culture on 11/05 were negative as well. Sputum culture revealed Acinetobacter complex MDR /on 2 consecutive days. Patient was on antibiotic as per ID specialist recommendation. Patient had sepsis secondary to bacteremia suspected to be from urinary source , given hydronephrosis on imaging and chronic suprapubic catheter. Collection for urine culture was delayed, and subsequently only showed yeast. Patient had surrounding cellulitis around J-tube site due to h leakage . Wound culture revealed MDR Acinetobacter , likely colonizer as per ID specialist. Patient had recurrent fever, probably pneumonia. Last chest x-ray showed increased left basilar atelectasis and hazy parenchymal infiltrates over 2 days. Antibiotic provided for ESBL bacteremia with meropenem. Patient was also continued on minocycline and inhaled colistin for MDR Acinetobacter , given fever and recent chest x-ray changes. Patient will need to complete antibiotics at the facility as specified by infectious disease specialist recommendation. No leukocytosis, intermittent fevers resolved. Patient slowly started on tube feeding as per tile grader recommendation. G-tube site care provided. GI prophylaxis with PPI provided. Bowel regimen instituted. Hemoglobin and hematocrit were closely monitored with goal to keep hemoglobin above 7. Hemoglobin and hematocrit remained at the baseline . Anemia work-up was consistent with anemia of chronic disease. Hemoglobin 12.6 and hematocrit 39.6 -prior to discharge. Seizure precaution maintained. Keppra and Neurontin continue. Renal parameters and electrolytes were closely monitored. Electrolytes/potassium and magnesium corrected. BUN from 33 down to 17. Urologist followed. Patient with chronic suprapubic catheter due to urinary retention, last exchanged 10/24/ Urologist recommended keep suprapubic catheter and hand irrigate as needed . Position was satisfactory , intermittent leakage from penis. Hydronephrosis noted on the can, appeared to be chronic. Urologist recommended to consider nuclear renal scan. Platelet count closely monitor from initial 71 up to normal 230. CT of the abdomen and pelvis demonstrated thickening of the underdistended urinary bladders with concerning for cystitis. Consider correlation with urinalysis. Moderate bilateral hydroureteronephrosis. Moderate stool in the rectosigmoid colon suggestive of constipation. Morphologic features of cirrhosis. Cholelithiasis. General surgeon followed. CT scan and abdominal ultrasound reviewed by surgeon. Patient with evidence of cholelithiasis, but no acute surgical interventions were necessary at this time. Bilirubin and LFT were closely monitored. t Total bilirubin from 5.8 down to 0.9 and direct bilirubin from 2.3 down to 0.9. Patient clinically stabilized and was ready for transfer to correction facility for continuation of care . FINAL DIAGNOSES: Septic shock-resolved Sepsis secondary to bacteremia , probably from urinary source Probable pneumonia Chronic respiratory failure with tracheostomy status Malfunctioning J-tube with dislodgment and leaking with surrounding cellulitis Dysphagia COPD Status post EGD and jejunostomy tube replacement Urinary retention with chronic suprapubic catheter Hydronephrosis, likely chronic Nephrolithiasis Neurogenic bladder Seizure disorder Elevated bilirubin, LFT Quadriplegia DISCHARGE MEDICATIONS: See Medication Reconciliation list. DISCHARGE INSTRUCTIONS: Patient was discharged to the subacute correction facility. Follow up with medical doctor and dental hygiene instructor at the facility . Continue weaning from ventilator to tracheostomy collar as tolerated. I have been assigned to dictate discharge summary for this account. I was not involved in the patient's management. Caitie Rose NP Nov 12, 2018 09:38
--- NOTE | 2018-11-12 10:32 | NUR ---
*-* INSURANCE *-* DISCHARGE SUMMARY HAS BEEN FAXED TO: [facility] [phone] HE IS AUDIOVISUAL AIDS TECHNICIAN ASSIGNED REF#[id number] AUDIOVISUAL AIDS TECHNICIAN: JAXON RAMOS#[phone] FAX#[phone] REVIEWS/CLINICAL
--- NOTE | 2018-11-12 12:31 | Cardiology Report ---
APPROVED REPORT EKG Measurement Heart [id number] Sinus tachycardia with 2nd degree AV block (Mobitz II) Right bundle branch block Abnormal ECG
== END 2018-11-11 15:30 | DRG 720 ==
LOC: EDBD 11:40 → EMR 12:02 → EDBEDREQ 12:03 → 4E 12:54 → EDBEDREQ 13:58 → 4E 14:32 → 2E 10-29 11:38 → ICU 11-03 11:30
PROC: 0DH63UZ Insertion of Feeding Device into Stomach, Percutaneous Approach (ICD-10-PCS; 2018-10-30)
PROC: 0DJ08ZZ Inspection of Upper Intestinal Tract, Via Natural or Artificial Opening Endoscopic (ICD-10-PCS; 2018-10-30)
PROC: 0DJ08ZZ Inspection of Upper Intestinal Tract, Via Natural or Artificial Opening Endoscopic (ICD-10-PCS; 2018-11-02 13:11)
PROC: 0D2DXUZ Change Feeding Device in Lower Intestinal Tract, External Approach (ICD-10-PCS; 2018-11-02 13:11)
PROC: 5A1955Z Respiratory Ventilation, Greater than 96 Consecutive Hours (ICD-10-PCS; principal; 2018-11-05)
DX: A41.59 Other Gram-negative sepsis (principal); Z93.0 Tracheostomy status; N39.0 Urinary tract infection, site not specified; L03.311 Cellulitis of abdominal wall; G82.50 Quadriplegia, unspecified; N30.00 Acute cystitis without hematuria; N13.2 Hydronephrosis with renal and ureteral calculous obstruction; N31.9 Neuromuscular dysfunction of bladder, unspecified; G40.909 Epilepsy, unspecified, not intractable, without status epilepticus; J44.9 Chronic obstructive pulmonary disease, unspecified; K21.9 Gastro-esophageal reflux disease without esophagitis; E87.6 Hypokalemia; I42.4 Endocardial fibroelastosis; Z95.810 Presence of automatic (implantable) cardiac defibrillator; R13.10 Dysphagia, unspecified; R33.8 Other retention of urine; D69.6 Thrombocytopenia, unspecified; R65.21 Severe sepsis with septic shock; K94.13 Enterostomy malfunction; J96.20 Acute and chronic respiratory failure, unspecified whether with hypoxia or hypercapnia; K94.23 Gastrostomy malfunction; I48.0 Paroxysmal atrial fibrillation; K94.22 Gastrostomy infection; Z99.11 Dependence on respirator [ventilator] status
CPT/HCPCS: 36415; 36600; 71045; 74018; 74176; 76700; 80048; 80053; 80202; 81003; 82140; 82150; 82248; 82533; 82607; 82728; 82746; 82803; 82962; 82977; 83540; 83550; 83690; 83735; 83880; 84100; 84132; 84443; 84550; 85007; 85025; 85610; 85730; 86140; 86850; 86900; 86901; 87040; 87070; 87081; 87086; 87181; 87205; 93005; 93306; 94002; 94003; 94150; 94640; 94664; 96365; 96375; 99285; J2250